=== PATIENT | male | born 1955 | race Caucasian/White ===

== ENCOUNTER 2017-09-23 21:13 | Inpatient (IN) | payer OTHER ==
[~2017-09-23] VITALS: Ht 180.3 cm; Wt 121.8 kg
--- NOTE | 2017-09-23 22:14 | ED SKIN/ALLERGY COMPLAINT ---
History of Present Illness General Chief Complaint: Abdominal Pain/Flank Pain Stated Complaint: SIB DR. GRAHAM FOR ABD PAIN Source: patient Exam Limitations: no limitations Vital Signs & Intake/Output Vital Signs & Intake/Output Vital Signs Date Time Temp Pulse Resp B/P B/P Pulse O2 O2 Flow FiO2 Mean Ox Delivery Rate 09/27 0627 98.0 57 20 138/78 93 CPAP 09/27 0537 55 94 09/27 0309 55 93 09/27 0040 55 92 09/27 0036 56 84 09/27 0000 CPAP 2.5L 09/26 2213 98.3 56 23 166/84 94 Room Air 09/26 2158 57 94 09/26 2057 57 152/70 09/26 1730 57 152/70 09/26 1400 97.5 57 20 152/70 92 Room Air 09/26 1359 52 158/66 09/26 1028 52 190/88 09/26 1028 190/88 ED Intake and Output 09/27 0000 09/26 1200 Intake Total 880 Output Total 1400 700 Balance -520 -700 Intake, Oral 880 Number 2 Bowel Movements Output, Urine 1400 700 Patient 320 lb Weight Allergies Coded Allergies: baclofen (LOSE EYESIGHT AND MOTOR SKILLS PER PT 09/23/17) ciprofloxacin (From CIPRO) (FEVER PT PT 09/23/17) lisinopril (COUGH PER PT 09/23/17) Reconcile Medications Acetaminophen (Tylenol Extra Strength) 500 MG TABLET 2 TAB PO Q6 BACK PAIN ( Reported) Amlodipine Besylate 10 MG TABLET 1 TAB PO DAILY HTN (Reported) Atorvastatin Calcium 40 MG TABLET 1 TAB PO DAILY CHOL (Reported) Bumetanide 2 MG TABLET 1 TAB PO BID water pill (Reported) Calcium Acetate 667 MG CAPSULE 1 CAP PO TID VITAMIN (Reported) Fenofibrate Nanocrystallized (Fenofibrate) 145 MG TABLET 1 TAB PO DAILY URINE (Reported) Hydralazine HCl 50 MG TABLET 0.5 TAB PO FOUR TIMES A DAY DIZZY (Reported) Metaxalone 800 MG TABLET 1 TAB PO TID PAIN (Reported) Metoprolol Tartrate 25 MG TABLET 3 TAB PO BID HTN (Reported) Patiromer Calcium Sorbitex (Veltassa) 16.8 GRAM POWD.PACK 1 PKG PO DAILY UNK (Reported) Sevelamer Carbonate (Renvela) 800 MG TABLET 2 TAB PO TID KIDNEY (Reported) Sodium Bicarbonate 650 MG TABLET 1 TAB PO BID SODIUM (Reported) Triage Note: PT FROM HOME C/O LEFT SIDE OF BODY SWELLING WELL ABD BLOATING AND TESTICLES SINCE SATURDAY. PT HAS SOB 89-91% O2 ON RA IN TRIAGE. PT STATES HE HAS HAD A FALL 3X WEEKS AGO. UNABLE TO AMBULATE INDEPDENTLY AT HOME, MAINLY WALKER/WHEELCHAIR BOUND. Triage Nurses Notes Reviewed? yes HPI: Patient presents for evaluation of a "hard abdomen" that began a few days ago. In addition he states that one half his body is "hard" (the left side) and one half his body is "soft" (the right side). (Cindy CASEY,Spencer Daniels) Past History Travel History Traveled to [place] past 21 day No Medical History Cardiovascular: hypertension, CABG Renal: KIDNEY DISEASE STAGE 4 Endocrine: diabetes Psychosocial History What is your primary language Nigerian Tobacco Use: Quit >30 days ago (Cindy CASEY,Spencer Daniels) Medical History Any Pertinent Medical History? see below for history Surgical History Surgical History: non-contributory Family History Hx Contributory? No (Patricia CASEY,Edwin Burgos) Review of Systems Review of Systems Constitutional: Reports: no symptoms. EENTM: Reports: no symptoms. Respiratory: Reports: no symptoms. Cardiovascular: Reports: no symptoms. GI: Reports: see HPI. Genitourinary: Reports: no symptoms. Musculoskeletal: Reports: no symptoms. Skin: Reports: no symptoms. Neurological/Psychological: Reports: no symptoms. Hematologic/Endocrine: Reports: no symptoms. Immunologic/Allergic: Reports: no symptoms. All Other Systems: Reviewed and Negative (Cindy CASEY,Spencer Daniels) Physical Exam Physical Exam General Appearance: see below Comments: Gen.: Well-nourished, well-developed, no acute respiratory distress. Head: Normocephalic, atraumatic. Eyes: Normal inspection bilaterally Ears: Normal inspection bilaterally Nose: Normal inspection Face: Nontender to percussion Throat/mouth : Moist mucosa , no pharyngeal erythema Neck: Supple, full range of motion, no goiter Heart: Regular rate and rhythm, no murmurs rubs or gallops Lungs: Clear to auscultation bilaterally with normal air entry Chest: Nontender Back: Normal range of motion Abdomen: Soft, nontender, nondistended, normal bowel sounds, no organosplenomegaly Extremities: Normal range of motion grossly, equal radial pulses, no cyanosis clubbing or edema Neurologic: Cranial nerves grossly intact, speech is clear Skin: warm and dry, edema (and induration) of the abdomen; edema of upper and lower extremities (without induration) Psychiatric: Calm, cooperative, no apparent delusions or hallucinations (Cindy CASEY,Spencer Daniels) Physical Exam Lymphatic: no anterior cervical ashlyn (Patricia CASEY,Edwin Burgos) Progress Differential Diagnosis: obstruction, pancreatitis, ascites, muscle spasm, spontaneous bacterial peritonitis Plan of Care: Orders Procedure Date/time Status MAGNESIUM 09/27 0600 Active BASIC ELECTROLYTES PLUS BUN&CR 09/27 0600 Active THERAPIST ORDERS 09/27 0538 Complete THERAPIST ORDERS 09/27 0040 Complete CONTIN. POSITIVE AIRWAY PRESS 09/27 0039 Complete Renal Dialysis Diet 09/26 L Active DC OXYGEN 09/26 2200 Complete CONTIN. POSITIVE AIRWAY PRESS 09/26 2200 Complete Aranda, Insertion/Removal/Asses 09/26 1440 Active URINE COLLECTION FROM OR 09/26 0910 Active TOTAL IRON BINDING CAPACITY 09/26 0607 Complete FERRITIN 09/26 0607 Complete SERUM IRON 09/26 0607 Complete Lab Add-on Test 09/26 UNK Active Nursing Misc 09/26 UNK Active OXYGEN 09/25 UNK Complete OXYGEN DAILY CHARGE 09/25 UNK Complete CONTIN. POS. AIRWAY PRESS. CHG 09/25 UNK Complete Current Medications Sig/Jose Angel Start time Last Medication Dose Stop Time Status Admin Metolazone 10 MG DAILY 09/27 0900 AC (Zaroxolyn) Sodium Bicarbonate 1,950 MG TID 09/26 1400 AC 09/26 (Sodium Bicarb 325MG 2055 Tab) Epoetin Chu 15,000 UNITS ONCE A WEEK 09/26 1045 AC 09/26 (Epogen (Order in 1214 Multipiles Of 1000U)) Bumetanide 3 MG BID 09/25 2100 AC 09/26 (Bumex) 2056 Sodium Hypochlorite 1 MEI BID 09/25 1100 AC 09/26 205 Sevelamer Carbonate 1,600 MG WM 09/24 1711 AC 09/26 (Renvela) 1730 Calcium Acetate 667 MG WM 09/24 1708 AC 09/26 (PhosLo) 173 Atorvastatin Calcium 40 MG 1700 09/24 1700 AC 09/26 (Lipitor) 173 Fenofibrate 145 MG DAILY 09/24 899 AC 09/26 (Tricor) 102 Metaxalone 800 MG TID 09/24 899 AC 09/26 (Skelaxin) 2057 Metoprolol Tartrate 75 MG BID 09/24 899 AC 09/26 (Lopressor) 2053 Heparin Sodium 5,000 UNIT Q8 09/24 599 AC 09/27 (Porcine) 0524 Amlodipine Besylate 10 MG DAILY 09/24 329 AC 09/26 (Norvasc) 1027 Hydralazine HCl 25 MG FOUR TIMES A DAY 09/24 329 AC 09/26 (Apresoline) 2056 Laboratory Tests 09/27/17 0606: Sodium Pending, Potassium Pending, Chloride Pending, Carbon Dioxide Pending, Anion Gap Pending, BUN Pending, Creatinine Pending, BUN/Creatinine Ratio Pending , Magnesium Pending Microbiology 09/26 854 URINE OR: Urine Culture - RECD Comments: Patient signed out to Dr. Gomez (Cindy CASEY,Spencer Daniels) Diagnostic Imaging: Viewed by Me: CT Scan. Discussed w/RAD: CT Scan. Radiology Impression: PATIENT: VIANEY ZAMORA PRESENT AGE: 61 PATIENT ACCOUNT NO: [id number] : 59 LOCATION: [facility] ORDERING PHYSICIAN: Spencer White MD SERVICE DATE: 09/23/17 EXAM TYPE : CAT - CT ABD & PELVIS W/O IV CONTRAS; CT CHEST WO IV CONTRAST EXAMINATION: CT CHEST, ABDOMEN AND PELVIS WITHOUT CONTRAST CLINICAL INFORMATION: Ascites, liver disease, hydronephrosis. Anasarca. History of bariatric surgery. Diffuse edema, hypoxia. Effusion. COMPARISON: No pertinent prior studies are available for comparison. TECHNIQUE: Multidetector volumetric imaging was performed from the thoracic inlet through the pubic symphysis following the uneventful administration of: Oral contrast: No Intravenous contrast: No Sagittal and coronal reformatted images were obtained on the technologist workstation. FINDINGS: CHEST: LUNG: There are calcified granulomata bilaterally. There is tubular and curvilinear consolidation in the lingula and left lower lobe with air bronchograms. MEDIASTINUM: There are calcified hilar and mediastinal lymph nodes consistent with prior granulomatous disease. The patient is status post median sternotomy. The main pulmonary artery is dilated, suggesting pulmonary arterial hypertension. Normal caliber thoracic aorta. Heart size upper limits of normal. There are coronary artery calcifications. PLEURA: Moderate bilateral pleural effusions, left greater than right. CHEST WALL/AXILLA: Bilateral gynecomastia. No axillary or internal mammary lymphadenopathy. ABDOMEN/PELVIS: Lack of intravenous contrast limits evaluation of the solid visceral organs including the liver, spleen, pancreas, and kidneys. LIVER, GALLBLADDER, AND BILIARY TREE: Noncontrast evaluation of the liver is grossly normal. No gross biliary ductal dilatation. Gallbladder is distended. There is ascites, limiting evaluation for pericholecystic fluid or gallbladder wall thickening. PANCREAS: Mild pancreatic atrophy. No pancreatic mass or peripancreatic inflammatory changes. SPLEEN: A few punctate granulomata are seen in the spleen. The spleen is not enlarged. ADRENAL GLANDS: No adrenal mass. KIDNEYS AND URETERS: Atrophic kidneys bilaterally. No hydronephrosis. GASTROINTESTINAL TRACT: There are postoperative changes of the stomach, question prior sleeve gastrectomy. Small bowel and colon are nondilated. There is severe sigmoid diverticulosis without evidence of diverticulitis. Although the appendix is not definitely seen, there are no right lower quadrant inflammatory changes to suggest acute appendicitis. ABDOMINAL WALL: There is diffuse anasarca. Fat-containing left inguinal hernia. LYMPHOVASCULAR STRUCTURES: Normal caliber abdominal aorta with moderate calcified atherosclerotic change. There is extensive mesenteric atherosclerotic vascular calcification. Prominent bilateral inguinal lymph nodes are seen. The largest is on the left and measures 2.8 x 2 cm, pathologically enlarged, nonspecific. BLADDER: The urinary bladder is mildly distended and circumferentially thick walled, which could be due to underdistention. There is gas nondependent lesion in the urinary bladder. PELVIC VISCERA: The prostate and seminal vesicles are normal. OSSEOUS STRUCTURES: Multilevel degenerative changes of the thoracolumbar spine are seen. There appears to be diffuse osseous sclerosis which can be seen in the setting of renal osteodystrophy. IMPRESSION: Bilateral pleural effusions, moderate volume of ascites, and anasarca suggesting volume overload. The kidneys are atrophic. There is left lower lobe consolidation with air bronchograms. This is at least in part compressive atelectasis from the left pleural effusion but superimposed aspiration or pneumonia are possible as well. There is inguinal lymphadenopathy, pathologically enlarged by short axis size criteria on the left. This is nonspecific, presumably reactive but metastatic lymphadenopathy could be considered if the patient has a known primary malignancy. Evidence of prior granulomatous disease. DICTATED BY: Antonino Del Castillo MD DATE/TIME DICTATED:09/23 HAND FLESHER:AMINATA DATE/TIME TRANSCRIBED:09/23/172327 CONFIDENTIAL, DO NOT COPY WITHOUT APPROPRIATE AUTHORIZATION. <Electronically signed in Other Vendor System> SIGNED BY: Antonino Del Castillo MD 09/23/17 8516 (Patricia CASEY,Edwin Burgos) Departure Departure Condition: Stable Referrals: Low CASEY,Clyde Gupta (PCP/Family) Departure Forms: Customer Survey General Discharge Information (Cindy CASEY,Spencer Daniels) Departure Disposition: STILL A PATIENT Clinical Impression Primary Impression: Anasarca Secondary Impressions: Bilateral pleural effusion Admission Note Spoke With: Barbie Conley MD Documentation of Exam: Documentation of any treatments & extenuating circumstances including Concerns Regarding Discharge (functional status, medication knowledge or non-compliance, living conditions, etc.) that warrant an admission rather than observation: [ Limits telemetry, renal consultation, pulse ox monitoring, most likely will need dialysis] (Patricia CASEY,Edwin Burgos)
[2017-09-23] MEDS ORDERED: VELTASSA16.8 GM PO (22:27)
[2017-09-23] MEDS ORDERED: METOPROLOL TART25 M1 PO (22:27)
[2017-09-23] MEDS ORDERED: HYDRALAZINE HCL50 M1 PO (22:28)
[2017-09-23] MEDS ORDERED: ATORVASTATIN CA40 M1 PO (22:28)
[2017-09-23] MEDS ORDERED: METAXALONE800 M1 PO (22:28)
[2017-09-23] MEDS ORDERED: AMLODIPINE BESY10 M1 PO (22:28)
[2017-09-23] MEDS ORDERED: RENVELA800 M1 PO (22:29)
[2017-09-23] MEDS ORDERED: SODIUM BICARBO650 M1 PO (22:30)
[2017-09-23] MEDS ORDERED: FENOFIBRATE145 M1 PO (22:30)
[2017-09-23] MEDS ORDERED: CALCIUM ACETAT667 M3 PO (22:30)
[2017-09-23 22:44] LABS: ABSOLUTE BASOPHIL COUNT 0 /CUMM (0.0-0.2); ABSOLUTE EOSINOPHIL COUNT 0.1 /CUMM (0.0-0.7); ABSOLUTE GRANULOCYTE CT 5.4 /CUMM (1.4-6.5); ABSOLUTE LYMPH COUNT 0.9 /CUMM (1.2-3.4); ABSOLUTE MONOCYTE COUNT 0.7 /CUMM (0.10-0.60); BASOPHIL % 0.4 % (0.0-2.0); EOSINOPHIL % 0.9 % (0-5); GRANULOCYTE % 75.9 % (42.2-75.2); HEMATOCRIT 34.6 % (42-52); MEAN CORPUSCULAR HGB 29.4 PG (27.0-31.0); MEAN CORPUSCULAR HGB CONC 31.8 G/DL (33.0-37.0); MEAN CORPUSCULAR VOLUME 92.2 FL (80.0-94.0); PLATELET COUNT 346 /CUMM (130-400); RBC DISTRIBUTION WIDTH 18.1 % (11.5-14.5); RED BLOOD CELL CT 3.75 /CUMM (4.70-6.10); WHITE BLOOD CELL COUNT 7.1 /CUMM (4.8-10.8)
[2017-09-23 22:50] LABS: PT 13.5 SEC (9.4-12.5)
--- NOTE | 2017-09-23 23:41 | CT SCAN REPORT ---
EXAMINATION: CT CHEST, ABDOMEN AND PELVIS WITHOUT CONTRAST CLINICAL INFORMATION: Ascites, liver disease, hydronephrosis. Anasarca. History of bariatric surgery. Diffuse edema, hypoxia. Effusion. COMPARISON: No pertinent prior studies are available for comparison. TECHNIQUE: Multidetector volumetric imaging was performed from the thoracic inlet through the pubic symphysis following the uneventful administration of: Oral contrast: No Intravenous contrast: No Sagittal and coronal reformatted images were obtained on the technologist workstation. FINDINGS: CHEST: LUNG: There are calcified granulomata bilaterally. There is tubular and curvilinear consolidation in the lingula and left lower lobe with air bronchograms. MEDIASTINUM: There are calcified hilar and mediastinal lymph nodes consistent with prior granulomatous disease. The patient is status post median sternotomy. The main pulmonary artery is dilated, suggesting pulmonary arterial hypertension. Normal caliber thoracic aorta. Heart size upper limits of normal. There are coronary artery calcifications. PLEURA: Moderate bilateral pleural effusions, left greater than right. CHEST WALL/AXILLA: Bilateral gynecomastia. No axillary or internal mammary lymphadenopathy. ABDOMEN/PELVIS: Lack of intravenous contrast limits evaluation of the solid visceral organs including the liver, spleen, pancreas, and kidneys. LIVER, GALLBLADDER, AND BILIARY TREE: Noncontrast evaluation of the liver is grossly normal. No gross biliary ductal dilatation. Gallbladder is distended. There is ascites, limiting evaluation for pericholecystic fluid or gallbladder wall thickening. PANCREAS: Mild pancreatic atrophy. No pancreatic mass or peripancreatic inflammatory changes. SPLEEN: A few punctate granulomata are seen in the spleen. The spleen is not enlarged. ADRENAL GLANDS: No adrenal mass. KIDNEYS AND URETERS: Atrophic kidneys bilaterally. No hydronephrosis. GASTROINTESTINAL TRACT: There are postoperative changes of the stomach, question prior sleeve gastrectomy. Small bowel and colon are nondilated. There is severe sigmoid diverticulosis without evidence of diverticulitis. Although the appendix is not definitely seen, there are no right lower quadrant inflammatory changes to suggest acute appendicitis. ABDOMINAL WALL: There is diffuse anasarca. Fat-containing left inguinal hernia. LYMPHOVASCULAR STRUCTURES: Normal caliber abdominal aorta with moderate calcified atherosclerotic change. There is extensive mesenteric atherosclerotic vascular calcification. Prominent bilateral inguinal lymph nodes are seen. The largest is on the left and measures 2.8 x 2 cm, pathologically enlarged, nonspecific. BLADDER: The urinary bladder is mildly distended and circumferentially thick walled, which could be due to underdistention. There is gas nondependent lesion in the urinary bladder. PELVIC VISCERA: The prostate and seminal vesicles are normal. OSSEOUS STRUCTURES: Multilevel degenerative changes of the thoracolumbar spine are seen. There appears to be diffuse osseous sclerosis which can be seen in the setting of renal osteodystrophy. IMPRESSION: Bilateral pleural effusions, moderate volume of ascites, and anasarca suggesting volume overload. The kidneys are atrophic. There is left lower lobe consolidation with air bronchograms. This is at least in part compressive atelectasis from the left pleural effusion but superimposed aspiration or pneumonia are possible as well. There is inguinal lymphadenopathy, pathologically enlarged by short axis size criteria on the left. This is nonspecific, presumably reactive but metastatic lymphadenopathy could be considered if the patient has a known primary malignancy. Evidence of prior granulomatous disease.
--- NOTE | 2017-09-24 00:58 | History & Physical ---
Dwaine Macedo MD,[facility] 09/24/17 0047: General Information and HPI MD Statement: I have seen and personally examined VIANEY ZAMORA and documented this H&P. The patient is a 61 year old M who presented with a patient stated chief complaint of [abd pain/flank pain]. Source of Information: patient Exam Limitations: no limitations History of Present Illness: Patient is 61-year-old male with PMH of CKD stage 4, HTN, CAD s/p CABG in 2006, DM (on insulin), BPH, LLE osteomyelitis presented to the ED for evaluation of increased body swelling. Patient reported he had increased swelling/distention of the abdomen for the last week. But for the last 2-3 days he started to have increased swelling of arms and scrotum. Patient noted that swelling is more severe in the left side, however he noted he generally lies on the left side. He also reported occasional fever to max of 102 during the last couple days. Patient had chronic shortness of breathing since February. Patient recently moved from [place] to [place] and this is the first time visit to . He had his care at [facility] till recently, his food service team member is Dr Pradhan and he visits her in monthly basis, his last creatinine was 6.2 and he was told he is a candidate for peritoneal dialysis. Patient lives alone, he was pretty independent till February last year that she had orthopedic procedure for his left lower extremity osteomyelitis (Escherichia coli. per patient) and recieved IV antibiotic for weeks, but after that he ambulates with walker. Patient takes up to 6 extra strength Tylenol daily for pain. He also does self- catheterization every 3-4 days and a still makes urine. Allergies/Medications Allergies: Coded Allergies: baclofen (LOSE EYESIGHT AND MOTOR SKILLS PER PT 09/23/17) ciprofloxacin (From CIPRO) (FEVER PT PT 09/23/17) lisinopril (COUGH PER PT 09/23/17) Home Med list Acetaminophen (Tylenol Extra Strength) 500 MG TABLET 2 TAB PO Q6 BACK PAIN ( Reported) Amlodipine Besylate 10 MG TABLET 1 TAB PO DAILY HTN (Reported) Atorvastatin Calcium 40 MG TABLET 1 TAB PO DAILY CHOL (Reported) Bumetanide 2 MG TABLET 1 TAB PO BID water pill (Reported) Calcium Acetate 667 MG CAPSULE 1 CAP PO TID VITAMIN (Reported) Fenofibrate Nanocrystallized (Fenofibrate) 145 MG TABLET 1 TAB PO DAILY URINE (Reported) Hydralazine HCl 50 MG TABLET 0.5 TAB PO FOUR TIMES A DAY DIZZY (Reported) Metaxalone 800 MG TABLET 1 TAB PO TID PAIN (Reported) Metoprolol Tartrate 25 MG TABLET 3 TAB PO BID HTN (Reported) Patiromer Calcium Sorbitex (Veltassa) 16.8 GRAM POWD.PACK 1 PKG PO DAILY UNK (Reported) Sevelamer Carbonate (Renvela) 800 MG TABLET 2 TAB PO TID KIDNEY (Reported) Sodium Bicarbonate 650 MG TABLET 1 TAB PO BID SODIUM (Reported) Past History Travel History Traveled to [place] past 21 day No Medical History Neurological: peripheral neuropathy Cardiovascular: hypertension, CABG Hepatic: NONE Renal: KIDNEY DISEASE STAGE 4 Musculoskeletal: osteoarthritis, leg injury r/t accident Psychiatric: substance abuse, (history 30+ years) Endocrine: diabetes Blood Disorders: DVT Surgical History Surgical History: non-contributory Review of Systems Review of Systems Constitutional: Reports: see HPI. Exam & Diagnostic Data Last 24 Hrs of Vital Signs/I&O Vital Signs Date Time Temp Pulse Resp B/P B/P Pulse O2 O2 Flow FiO2 Mean Ox Delivery Rate 09/24 0135 98.0 56 28 200/86 93 Nasal 2.0L Cannula 09/23 2317 98.0 53 20 183/84 93 Nasal 2.0L Cannula 09/23 2136 98.0 53 18 171/76 91 Room Air Intake & Output 09/24 0800 09/24 0000 09/23 1600 Intake Total Output Total Balance Patient 288 lb Weight Weight Reported by Patient Measurement Method Physical Exam General Appearance Alert, Oriented X3, Cooperative, No Acute Distress, obese, obese Skin 2inch X2 inch , 1 inch deep wound in bottom of left hill Skin Temp/Moisture Exam: Warm/Dry Sepsis Skin Exam (color): Normal for Ethnicity HEENT Atraumatic, EOMI Cardiovascular Regular Rate, Normal S1, Normal S2 Lungs decreased air entry in the right side Abdomen Soft, distanded, mild tenderness in the left side Neurological Normal Speech Extremities +3 bilateral LE edema Reproductive (MALE) swelling of scrotum Last 24 Hrs of Labs/[place]: Laboratory Tests 09/23/17 2225: Anion Gap 13, Estimated GFR 12 L, BUN/Creatinine Ratio 11.4, Glucose 112 H, Calcium 8.3 L, Total Bilirubin 0.6, AST 20, ALT 19 L, Alkaline Phosphatase 111 , Troponin I < 0.01, Svw-D-Okihbnuwchg Pept 74896 H, Total Protein 6.4, Albumin 2.9 L, Globulin 3.5, Albumin/Globulin Ratio 0.8 L, Lipase 66, PT 13.5 H, INR 1.24 H, D-Dimer High Sensitivty 806 H, CBC w Diff NO MAN DIFF REQ, RBC 3.75 L , MCV 92.2, MCH 29.4, MCHC 31.8 L, RDW 18.1 H, MPV 8.0, Gran % 75.9 H, Lymphocytes % 13.3 L, Monocytes % 9.5 H, Eosinophils % 0.9, Basophils % 0.4, Absolute Granulocytes 5.4, Absolute Lymphocytes 0.9 L, Absolute Monocytes 0.7 H, Absolute Eosinophils 0.1, Absolute Basophils 0 09/23/17 2223: Ban-K-Pokbahfubqg Pept Cancelled, D-Dimer High Sensitivty Cancelled Assessment/Plan Assessment: Patient is 61-year-old male presented with increased swelling of abdomen and bilateral LE PMH of CKD stage 4, HTN, CAD s/p CABG in 2006, DM (on insulin), BPH, LLE osteomyelitis VS, Ph Ex at admission: No fever, BP 171/76, DC 53 Labs at admission: Hgb 11, WBC 7.1, INR 1.2, Sodium 140 potassium normal, bicarbonate 14, creatinine 5, BUN 57, calcium 8.4, proBNP 27568, albumin 2.9 Imagings at admission: Chest abd CT: Bilateral pleural effusions, moderate volume of ascites, and anasarca suggesting volume overload. The kidneys are atrophic. There is left lower lobe consolidation with air bronchograms. This is at least in part compressive atelectasis from the left pleural effusion but superimposed aspiration or pneumonia are possible as well. There is inguinal lymphadenopathy, pathologically enlarged by short axis size criteria on the left. This is nonspecific, presumably reactive but metastatic lymphadenopathy could be considered if the patient has a known primary malignancy. Evidence of prior granulomatous disease. Patient was admitted to telemetry floor for management of following conditions: Volume overload CKD/ESRD Chronic wound of LLE Chronic medical conditions - admit to tele floor, to monitor for any potential electrolyte abnl - monitor BP,cardiac - PULS OX, O2 - continue home medication - hold metoprolol for bradicardia - IV bumethanide - EKG - Nephro consult FC DVT ppx: alps, pharmacological FC As Ranked By This Provider Problem List: 1. Anasarca Core Measures/Misc (12/30) Acute Coronary Syndrome ACS Diagnosis: No Congestive Heart Failure Congestive Heart Failure Diagnosis No Cerebrovascular Accident CVA/TIA Diagnosis: No VTE (View Protocol) VTE Risk Factors Age>40 No Mechanical VTE Prophylaxis d/t N/A MechProphylax Ordered No VTE Pharm Prophylaxis d/t NA PharmProphylax ordered Sepsis (View protocol) Sepsis Present: No If YES complete Sepsis Event Note If YES complete Sepsis Event Note Dariel Amado 09/24/17 0127: Core Measures/Misc (12/30) Sepsis (View protocol) If YES complete Sepsis Event Note If YES complete Sepsis Event Note Resident Review Statement Resident Statement: examined this patient, discussed with technology risk intern, agreed with technology risk intern Other Findings: Mr. Luong is a 61-year-old male with past medical history of chronic kidney disease (follows up with [facility] Liz[facility] at [facility]), hypertension, hyperlipidemia, coronary artery disease status post CABG in 2006, diabetes mellitus (previously on insulin, currently last HbA1c 6.3), BPH, previous left lower extremity osteomyelitis, now chronic ulcer on the foot status post graft came in with chief complaint of abdominal and flank discomfort for a few days prior to presentation. Apparently the patient has been feeling bloated for last 1 week, for last couple of days he noted increased swelling of his arms and scrotum, he noticed that the swelling was more severe on the left side, possibly because he lies on the left side, he continued to have worsening shortness of breath which has been there for the last 5-6 months. He felt bloated and extreme dental discomfort in 1 week prior to this present is very uncomfortable for last 3 days and therefore came into [place] [facility]. He has been seeing a food service team member for last 8 years, he follows up with Dr. Lizeth Pradhan and [employer] as her food service team member and follows up with her regularly, he sees the CIVILIAN TECHNICIAN at the food service team member almost every month. As per him his creatinine recently was 6.2 and prior to that was 5.8. He recently moved to [place], most of his doctors are at as he lived in [place] previously. There was a talk about possible peritoneal dialysis at some point, however he has not been dialyzed at any point until now. He does make some urine at baseline, however he self catheterizes himself as he has obstruction and his catheter gets blocked therefore he has to self catheterize himself. He has never had any peritoneal catheter. He follows up with his sales superintendent Dr. Chavez at [place]. He recently establish a new primary care at their due to his move and Dr. Kelsey is now his new PCP. He also noted to have mild fevers and chills at home for the last few days, maximum temperature that he measured was 102 at home. He had a possible osteomyelitis of the left foot, was debrided and according to him he was treated for osteomyelitis secondary to E. coli for 6 weeks however he does not remember what antibiotics. This is a first-time patient has presented [facility], most of his care has been and he will therefore we will need to obtain records from [facility] get more details on his medical history. Vitals on presentation a temperature of 98.0, pulse of 56, respiration of 20, blood pressure of 153/84, he was saturating 93% on 2 L of home oxygen. He does not use oxygen at home, however he was a previous heavy smoker. On physical exam, he was visibly short of breath, alert oriented 3, in mild distress due to anasarca, pupils equal and reactive to light, mild scleral icterus noted, CVS S1-S2 present, bilateral crackles present, RS : Air entry reduced on the left basal side, bilateral crackles. Per abdomen : distended, BS+, tenderness + in LLQ. extremities : Edema 2 to 3+ b/l Left foot : A deep ulcerating wound size approx 2cm, well healing, no overlying pus,pigmented but healing margins, pink granulomatous base, pulses palpable and grafted skin. Relevant labs : white count of 7.1, H/H of 11.0/34.6, platelets 346. Sodium of 142, potassium of 4.8, BUN/creatinine 57/5.0 (baseline 5.0), glucose of 112, calcium of 8.3, proBNP elevated at 31,300, albumin low at 2.9, d-dimer high-sensitivity at 806. CT abdomen and pelvis showed bilateral pleural effusion, moderate volume of ascites, anasarca suggesting volume overload, atrophic kidneys. Left lower lobe consolidation with air bronchograms were noted however that this could be compressive atelectasis from the left pleural effusion or possible superimposed aspiration or pneumonia. In absence of clinical signs of pneumonia, refill not treat for pneumonia for now. Also inguinal lymphadenopathy on the left was noted possibly reactive versus metastatic. We will admit the patient to cardiac telemetry floor for the treatment of following problems. Problem #1 anasarca secondary to fluid overload secondary to chronic kidney disease. Continue to monitor vitals, continue to monitor intake/output, will dose 2 mg of IV bumetanide starting now, continue home diuretics, nephrology consult for a.m. , possible peritoneal dialysis, continue to monitor electrolytes. Continue home medication of sodium bicarb 650 twice daily, sevelamer 1600 mg 3 times daily, calcium acetate 67 3 times daily. Problem #2 history of hypertension. She is on Lopressor 75 mg twice daily, we will hold the Lopressor for now and the patient's heart rate is on the lower side. Continue to monitor the heart rate and restart as needed. Continue amlodipine 10 mg daily, continue hydralazine. New to monitor blood pressure. Problem #3 history of hyperlipidemia/dyslipidemia. Continue fenofibrate 145 mg daily p.o. Continue statin starting in a.m. 4. Ulcer of the left lower foot. Continue dressings, wound care consult in a.m. with Dr. Young. FC Renal dialysis diet dvtpx heparin Barbie Conley 09/24/17 0440: Core Measures/Misc (12/30) Sepsis (View protocol) If YES complete Sepsis Event Note If YES complete Sepsis Event Note Attending MD Review Statement Attending Statement Attending MD Statement: examined this patient, discuss w/resident/PA/PIECE PRESSER, agreed w/resident/PA/PIECE PRESSER, reviewed EMR data (avail), reviewed images, amended to note Attending Assessment/Plan: CC: Bloating, body swelling PMH: CKD, HTN, DM, CAD S/P CA S/P CABG 2006, BPH, left foot ulcer followed by osteomyelitis S/P debridement now chronic ulcer, S/P gastric bypass, chronic low back pain Patient came to ER for feeling increasingly bloated, swollen since last 1 week. He states that his arms and legs are swelling more than usual since last 1 week and he noticed abdominal distention, scrotal swelling since last 2-3 days. He also states that he had fever of 102 on Saturday and Saturday on 2 different occasions associated with chills but denies any cough, expectoration, skin rashes or redness, urinary frequency, burning, irritation, worsening pain or drainage or redness of the foot wound, headache. He has worsening shortness of breath over last few days. Patient used to live in [place] before now moved to [place]. He follows up with food service team member and sales superintendent at [facility]. He follows up with food service team member and her PA every month her terminating. His creatinine is in the range of 5.8 to 6.2. He has been told that he may require dialysis and they have planned for peritoneotomy dialysis eventually but timeline was undecided. He had expected nephrology appointment today but could not go there because of worsening bloating and shortness of breath and stated he preferred to come to ER with his brother. He walks with a rolling walker. He is compliant and well-versed with all his medications currently on bumetanide along with amlodipine, hydralazine and metoprolol for blood pressure. He also receives erythropoietin shots for anemia and is on Veltassa, sodium bicarbonate and Ranvela. Vitals: Temperature 98.0, pulse 53, RR 18, blood pressure 171/76, saturating 91% on 2 L nasal cannula On exam: A O 3, cooperative, mild respiratory distress, neck supple, JVD could not be appreciated, no lymphadenopathy, mucosa dry, no focal neurological deficit, +2 lower extremity edema, generalized anasarca with distended abdomen, edema on arms, 3 cm deep ulcer on left foot on plantar aspect, does not appear infected but poor healing CVS: S1-S2, RRR. RS: Decreased air entry on left base. Abdomen: Soft, distended, mild tenderness on superficial aspect of left side of abdomen, bowel sounds present. CT abdomen and pelvis and chest without IV contrast: Bilateral pleural effusions, moderate volume of ascites, and anasarca suggesting volume overload. The kidneys are atrophic. There is left lower lobe consolidation with air bronchograms. This is at least in part compressive atelectasis from the left pleural effusion but superimposed aspiration or pneumonia are possible as well. There is inguinal lymphadenopathy, pathologically enlarged by short axis size criteria on the left. This is nonspecific, presumably reactive but metastatic lymphadenopathy could be considered if the patient has a known primary malignancy. Evidence of prior granulomatous disease. Assessment and plan 61-year-old male with extensive past medical history as mentioned above presented in ER for generalized swelling and bloating since last 1 week, progressively worsened over the weekend along with shortness of breath. On examination patient appears to be in generalized anasarca with pitting edema even on arms. This is confirmed with CT abdomen and pelvis and chest which shows moderate volume ascites, bilateral pleural effusion. His proBNP is elevated to 31,300. All of this is likely secondary to progression of CKD. According to patient his food service team member has not suggested any dialysis plan as of yet. They have discussed about peritoneal dialysis for future. Patient has metabolic acidosis, volume overload. We will try IV bumetanide, monitor him on telemetry floor for hypervolemia and any expected electrolyte abnormality secondary to see daily. We will Get nephrology involved. His blood pressure is accelerated as he has not taken any of his medications since afternoon, will continue all his medications. We'll obtain his previous records from nephrology and sales superintendent. Patient does not carry a diagnosis of congestive heart failure according to him. He also has chronic nonhealing noninfected hold on left foot, we will get wound care involved. + Hypervolemia with anasarca secondary to progression of see daily + Metabolic acidosis + Progression of CKD + Inguinal lymphadenopathy of unclear etiology + History of CKD, HTN, DM, CAD S/P CA S/P CABG 2006, BPH, left foot ulcer followed by osteomyelitis S/P debridement now chronic ulcer, S/P gastric bypass, chronic low back pain - Admit to telemetry - Continuous telemetry monitoring - Add magnesium and phosphorus to sample in lab - IV bumetanide 2 mg - Nephrology consult in a.m. - Continue all his home medications and sliding scale insulin - DVT prophylaxis - Wound care consult - Patient's brother is his healthcare proxy if required. Patient is full code
[2017-09-24] MEDS ORDERED: TYLENOL EXTRA500 M2 PO (01:56)
[2017-09-24] MEDS ORDERED: BUMETANIDE2 M1 PO (02:31)
[2017-09-24 03:09] VITALS: BP 164/80
--- NOTE | 2017-09-24 04:42 | Admission Certification ---
Admission Certification Certification Statement - As attending physician, I certify that at the time of - admission, based on clinical presentation, severity of - symptoms, need for further diagnostic testing and - therapeutic interventions, and risk of adverse outcomes - without in-hospital treatment, in my clinical assessment, - this patient requires an acute hospital stay for a minimum - of two nights or longer. I have also considered psychsocial - factors such as support system, advanced age, financial - issues, cognitive issues, and failed out-patient treatments, - past re-admission history, safety of patient, and lack of - compliance as applicable. Specific rationale supporting this admission is: Volume overload secondary to progression of CKD
[2017-09-24 07:14] VITALS: BP 164/68
[2017-09-24 07:44] LABS: ABSOLUTE BASOPHIL COUNT 0 /CUMM (0.0-0.2); ABSOLUTE EOSINOPHIL COUNT 0 /CUMM (0.0-0.7); ABSOLUTE GRANULOCYTE CT 4.7 /CUMM (1.4-6.5); ABSOLUTE LYMPH COUNT 1.1 /CUMM (1.2-3.4); ABSOLUTE MONOCYTE COUNT 0.8 /CUMM (0.10-0.60); BASOPHIL % 0.3 % (0.0-2.0); EOSINOPHIL % 0.6 % (0-5); GRANULOCYTE % 71.2 % (42.2-75.2); HEMATOCRIT 32.7 % (42-52); MEAN CORPUSCULAR HGB 29.9 PG (27.0-31.0); MEAN CORPUSCULAR HGB CONC 32.6 G/DL (33.0-37.0); MEAN CORPUSCULAR VOLUME 91.9 FL (80.0-94.0); PLATELET COUNT 317 /CUMM (130-400); RBC DISTRIBUTION WIDTH 17.6 % (11.5-14.5); RED BLOOD CELL CT 3.56 /CUMM (4.70-6.10); WHITE BLOOD CELL COUNT 6.6 /CUMM (4.8-10.8)
--- NOTE | 2017-09-24 10:41 | PN- Att Addend ---
Attending Addendum Attending Brief Note 61-year-old male with extensive past medical history presented in ER for generalized swelling and bloating since last 1 week, progressively worsened over the weekend along with shortness of breath. On examination patient appears to be in generalized anasarca. This is confirmed with CT abdomen and pelvis and chest which shows moderate volume ascites, bilateral pleural effusion. Rest of PE unremarkable. 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 They have discussed about peritoneal dialysis for future. Patient has metabolic acidosis, volume overload. No new complaints today. Vitals stable. Cr 5, Urine output+. Chest xray with plerual effusions 1 Hypervolemia with anasarca secondary to progression of CKD 2 B/l pleural effusion 3 Congestive heart failure 4 Inguinal lymphadenopathy of unclear etiology 5 History of CKD, HTN, DM, CAD S/P MD S/P CABG 2006, BPH, left foot ulcer followed by osteomyelitis S/P debridement now chronic ulcer, S/P gastric bypass, chronic low back pain 6. Urinary retention self catheterizes at home. - Continuous telemetry monitoring - bumetanide 2 mg bid - Nephrology consult awaited - Continue all his home medications and sliding scale insulin - Cardiology consult - DVT prophylaxis - Wound care consult - Patient's brother is his healthcare proxy if required. Patient is full code - Obtain previosu records. Admission Lab Results I reviewed the following labs: Laboratory Tests 09/24 09/24 1016 0647 Chemistry Sodium (137 - 145 mmol/L) 145 Potassium (3.5 - 5.1 mmol/L) 4.8 Chloride (98 - 107 mmol/L) 116 H Carbon Dioxide (22 - 30 mmol/L) 16 L Anion Gap (5 - 16) 13 BUN (9 - 20 mg/dL) 57 H Creatinine (0.7 - 1.2 mg/dL) 5.0 H Estimated GFR (>60 ml/min) 12 L BUN/Creatinine Ratio (7 - 25 %) 11.4 Phosphorus (2.5 - 4.5 mg/dL) 7.6 H Magnesium (1.6 - 2.3 mg/dL) 1.7 Troponin I (<0.11 ng/ml) < 0.01 Hematology CBC w Diff NO MAN DIFF REQ WBC (4.8 - 10.8 /CUMM) 6.6 RBC (4.70 - 6.10 /CUMM) 3.56 L Hgb (14.0 - 18.0 G/DL) 10.6 L Hct (42 - 52 %) 32.7 L MCV (80.0 - 94.0 FL) 91.9 MCH (27.0 - 31.0 PG) 29.9 MCHC (33.0 - 37.0 G/DL) 32.6 L RDW (11.5 - 14.5 %) 17.6 H Plt Count (130 - 400 /CUMM) 317 MPV (7.4 - 10.4 FL) 8.0 Gran % (42.2 - 75.2 %) 71.2 Lymphocytes % (20.5 - 51.1 %) 16.1 L Monocytes % (1.7 - 9.3 %) 11.8 H Eosinophils % (0 - 5 %) 0.6 Basophils % (0.0 - 2.0 %) 0.3 Absolute Granulocytes (1.4 - 6.5 /CUMM) 4.7 Absolute Lymphocytes (1.2 - 3.4 /CUMM) 1.1 L Absolute Monocytes (0.10 - 0.60 /CUMM) 0.8 H Absolute Eosinophils (0.0 - 0.7 /CUMM) 0 Absolute Basophils (0.0 - 0.2 /CUMM) 0 Urines Urine Color (YEL,AMB,STR) Pending Urine Clarity (CLEAR) Pending Urine pH (5.0 - 8.0) Pending Ur Specific [place] (1.001 - 1.035) Pending Urine Protein (NEG,<30 MG/DL) Pending Urine Ketones (NEG) Pending Urine Nitrite (NEG) Pending Urine Bilirubin (NEG) Pending Urine Urobilinogen (0.1 - 1.0 EU/dl) Pending Ur Leukocyte Esterase (NEG) Pending Ur Microscopic SEDIMENT EXAMINED Urine RBC (0 - 5 /HPF) Pending Urine Hemoglobin (NEG) Pending Urine Glucose (N MG/DL) Pending 09/23 09/23 2225 2223 Chemistry Sodium (137 - 145 mmol/L) 142 Potassium (3.5 - 5.1 mmol/L) 4.8 Chloride (98 - 107 mmol/L) 116 H Carbon Dioxide (22 - 30 mmol/L) 14 L Anion Gap (5 - 16) 13 BUN (9 - 20 mg/dL) 57 H Creatinine (0.7 - 1.2 mg/dL) 5.0 H Estimated GFR (>60 ml/min) 12 L BUN/Creatinine Ratio (7 - 25 %) 11.4 Glucose (65 - 99 mg/dL) 112 H Calcium (8.4 - 10.2 mg/dL) 8.3 L Phosphorus (2.5 - 4.5 mg/dL) 7.3 H Magnesium (1.6 - 2.3 mg/dL) 1.7 Total Bilirubin (0.2 - 1.3 mg/dL) 0.6 AST (17 - 59 U/L) 20 ALT (21 - 72 U/L) 19 L Alkaline Phosphatase (< 127 U/L) 111 Troponin I (<0.11 ng/ml) < 0.01 [id number] Pept (<125 pg/mL) 29307 H Cancelled Total Protein (6.3 - 8.2 g/dL) 6.4 Albumin (3.5 - 5.0 g/dL) 2.9 L Globulin (1.9 - 4.2 gm/dL) 3.5 Albumin/Globulin Ratio (1.1 - 2.2 %) 0.8 L Lipase (23 - 300 U/L) 66 Coagulation PT (9.4 - 12.5 SEC) 13.5 H INR (0.90 - 1.17) 1.24 H D-Dimer High Sensitivty (0 - 243 ng/ml) 806 H Cancelled Hematology CBC w Diff NO MAN DIFF REQ WBC (4.8 - 10.8 /CUMM) 7.1 RBC (4.70 - 6.10 /CUMM) 3.75 L Hgb (14.0 - 18.0 G/DL) 11.0 L Hct (42 - 52 %) 34.6 L MCV (80.0 - 94.0 FL) 92.2 MCH (27.0 - 31.0 PG) 29.4 MCHC (33.0 - 37.0 G/DL) 31.8 L RDW (11.5 - 14.5 %) 18.1 H Plt Count (130 - 400 /CUMM) 346 MPV (7.4 - 10.4 FL) 8.0 Gran % (42.2 - 75.2 %) 75.9 H Lymphocytes % (20.5 - 51.1 %) 13.3 L Monocytes % (1.7 - 9.3 %) 9.5 H Eosinophils % (0 - 5 %) 0.9 Basophils % (0.0 - 2.0 %) 0.4 Absolute Granulocytes (1.4 - 6.5 /CUMM) 5.4 Absolute Lymphocytes (1.2 - 3.4 /CUMM) 0.9 L Absolute Monocytes (0.10 - 0.60 /CUMM) 0.7 H Absolute Eosinophils (0.0 - 0.7 /CUMM) 0.1 Absolute Basophils (0.0 - 0.2 /CUMM) 0 Admission Meds I reviewed the following Meds: Current Medications Sig/Jose Angel Start time Last Medication Dose Stop Time Status Admin Amlodipine Besylate 10 MG DAILY 09/24 0330 AC 09/24 (Norvasc) 0844 Atorvastatin Calcium 40 MG 1700 09/24 1700 AC (Lipitor) Bumetanide 2 MG BID 09/24 0330 AC 09/24 (Bumex) 0848 Calcium Acetate 667 MG TID 09/24 09 AC 09/24 (PhosLo) 0844 Fenofibrate 145 MG DAILY 09/24 0900 AC 09/24 (Tricor) 0843 Heparin Sodium 5,000 UNIT Q8 09/24 06 AC 09/24 (Porcine) 0455 Hydralazine HCl 25 MG FOUR TIMES A DAY 09/24 0330 AC 09/24 (Apresoline) 0843 Metaxalone 800 MG TID 09/24 09 AC 09/24 (Skelaxin) 0842 Metoprolol Tartrate 75 MG BID 09/24 09 AC 09/24 (Lopressor) 1021 Sevelamer Carbonate 1,600 MG TID 09/24 09 AC 09/24 (Renvela) 0844 Sodium Bicarbonate 650 MG BID 09/24 0900 AC 09/24 (Sodium Bicarb 325MG 0843 Tab)
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
[2017-09-24 14:23] VITALS: BP 160/90
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
[2017-09-24 18:38] VITALS: BP 142/58
[2017-09-24 21:27] VITALS: BP 164/72
[2017-09-25 06:47] VITALS: BP 154/62
--- NOTE | 2017-09-25 08:03 | PN- Housestaff ---
CarlosavtarJorge Luis baker 09/25/17 0803: Subjective Follow-up For: Acute on chronic HFpEF History of coronary disease, status post bypass surgery Diabetes CKD Normocytic anemia Subjective: Seen and examined patient this morning. Offers no complaints. Feels the same as yesterday. Lesion over chest noted to be purulent. Review of Systems Constitutional: Denies: chills, diaphoresis, fever, malaise, weakness, unexplained weight loss. Objective Last 24 Hrs of Vital Signs/I&O Vital Signs Date Time Temp Pulse Resp B/P B/P Pulse O2 O2 Flow FiO2 Mean Ox Delivery Rate 09/25 0806 54 154/62 09/25 0805 54 154/62 09/25 0800 98 Nasal 2.5L Cannula 09/25 0647 97.9 51 20 154/62 95 Nasal Cannula 09/25 0034 51 92 09/24 2145 51 93 09/24 2127 97.9 55 20 164/72 95 Nasal Cannula 09/24 2102 162/72 09/24 2003 Nasal 2.5L Cannula 09/24 1838 56 142/58 09/24 1835 56 142/58 09/24 1656 Nasal 2.0L Cannula 09/24 1600 93 Nasal 2.5L Cannula 09/24 1423 98.2 52 20 160/90 93 Nasal Cannula 09/24 1346 160/90 Intake & Output 09/25 1600 09/25 0800 09/25 0000 Intake Total 50 308 Output Total 900 350 Balance -850 -42 Intake, IV 18 Intake, Oral 50 290 Number 0 Bowel Movements Output, Urine 900 350 Patient 327 lb Weight Weight Bed scale Measurement Method Physical Exam General Appearance: Alert, Oriented X3, Cooperative Cardiovascular: Normal S1, Normal S2 Lungs: Normal Air Movement Abdomen: Distended Extremities: +3 pedal edema, left plantar foot ulcer Current Medications: Current Medications Sig/Jose Angel Start time Last Medication Dose Route Stop Time Status Admin Amlodipine Besylate 10 MG DAILY 09/24 0330 AC 09/25 PO 0806 Atorvastatin Calcium 40 MG 1700 09/24 1700 AC 09/24 PO 1836 Bumetanide 2 MG BID 09/24 0330 AC 09/25 IV 0806 Calcium Acetate 667 MG WM 09/24 1708 AC 09/25 PO 0806 Calcium Acetate 667 MG TID 09/24 0900 DC 09/24 PO 1346 Fenofibrate 145 MG DAILY 09/24 0900 AC 09/25 PO 0805 Heparin Sodium 5,000 UNIT Q8 09/24 0600 AC 09/25 (Porcine) SC 0609 Hydralazine HCl 25 MG FOUR TIMES A DAY 09/24 0330 AC 09/25 PO 0805 Metaxalone 800 MG TID 09/24 0900 AC 09/25 PO 0806 Metolazone 5 MG BID 09/25 0900 AC PO Metolazone 5 MG DAILY 09/24 2200 DC 09/24 PO 2209 Metoprolol Tartrate 75 MG BID 09/24 0900 AC 09/25 PO 0806 Patient Medication 1 ED ONE ONE 09/24 1630 DC Teaching ED 09/24 1631 Sevelamer Carbonate 1,600 MG WM 09/24 1711 AC 09/25 PO 08 Sevelamer Carbonate 1,600 MG TID 09/24 0900 DC 09/24 PO 1345 Sodium Bicarbonate 650 MG BID 09/24 0900 AC 09/25 PO 08 Sodium Hypochlorite 1 MEI BID 09/25 1100 AC TOP Last 24 Hrs of Lab/[place] Results Last 24 Hrs of Labs/Mics: Laboratory Tests 09/25/17 0610: Anion Gap 12, Estimated GFR 12 L, BUN/Creatinine Ratio 11.8, Phosphorus 7.6 H, Magnesium 1.7 Microbiology 09/25 1056 TRUNK: Culture & Sensitivity - ORD 09/25 1056 TRUNK: Gram Stain - ORD 09/25 1003 URINE ROUT: Urine Culture - ORD Assessment/Plan Assessment: 80-year-old gentleman former past medical history significant for 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 monthly, hypertension, coronary artery disease status post CABG 2005, sleep apnea on nocturnal CPAP, nonhealing left heel ulcer history of osteomyelitis, obstructive uropathy secondary to be 2/2 urethral strictures requiring intermittent straight catheterization. Assessment and plan: Stage IV/V CKD Nephrotic syndrome secondary to secondary to chronic kidney disease, creatinine 5.1 today his baseline creatinine is around 4.35-5.49 next dose of Epogen on 09/28 , 300mcg as an outpatient Continue Phoslo currently on 2mg IV Bumex BID + 5mg PO metolazone per nephro will increase to 5mg Strict I/Os and daily weights NPO tonight per urology for ? march placement Metabolic acidosis On 1300mg sodium bicarb QID Acute on chronic HFpEF strict I/0s daily accurate weights Type 2 DM accuchecks continue ISS Left heel non-healing ulcer/chest furuncle wound consult Surgery consulted, recomending heat application, will continue to monitor DVT ppx sc heparin full code renal dialysis diet Problem List: 1. Bilateral pleural effusion 2. Anasarca 3. Diabetes Pain Ratin Pain Location: na Pain Goal: Pain 4 or less Pain Plan: current regimen Tomorrow's Labs & Rationales: licha Rebecca Geiger 09/25/17 1239: Attending MD Review Statement Attending Statement Attending MD Statement: examined this patient, discuss w/resident/PA/STILL WORKER HELPER, agreed w/resident/PA/STILL WORKER HELPER, discussed with family, reviewed EMR data (avail), discussed with nursing, discussed with case mgmt, reviewed images, amended to note Attending Assessment/Plan: History of CKD, HTN, DM, CAD S/P TN S/P CABG 2006, BPH, left foot ulcer followed by osteomyelitis S/P debridement now chronic ulcer, S/P gastric bypass, chronic low back pain 61-year-old male admitted here for fluid overlaod, b/l pleural effusion, anasarca in setting of chronc congestive heart failure and progressive worsening of kidney disease. No new complaints today. Vitals stable. Cr 5.1 , Urine output+. Chest furuncle noted with some purulent material. RUTH on CKD with fluid overlaod: bumetanide 2 mg iv bid, nephrology follwoing, monitor I/O strictly. Increase diuretics as per nephrology. Congestive heart failure diastolic , echo pending Cardiology consulted Left non healing ulcer present on admission - Wound care consulted, follow recommendations DVT prophylaxis Patient's brother is his healthcare proxy if required. Patient is full code Continuous telemetry monitoring, f/u previus records. Patient's brother is his healthcare proxy if required. Patient is full code Continuous telemetry monitoring, f/u previus records.
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
--- NOTE | 2017-09-25 11:30 | PN- Cardiology ---
Subjective Subjective: Clinically unchanged. Remains mildly dyspneic. No other specific complaints. Objective Vital Signs and I&Os Vital Signs Date Time Temp Pulse Resp B/P B/P Pulse O2 O2 Flow FiO2 Mean Ox Delivery Rate 09/25 0806 54 154/62 09/25 0805 54 154/62 09/25 0800 98 Nasal 2.5L Cannula 09/25 0647 97.9 51 20 154/62 95 Nasal Cannula 09/25 0034 51 92 09/24 2145 51 93 09/24 2127 97.9 55 20 164/72 95 Nasal Cannula 09/24 2102 162/72 09/24 2003 Nasal 2.5L Cannula 09/24 1838 56 142/58 09/24 1835 56 142/58 09/24 1656 Nasal 2.0L Cannula 09/24 1600 93 Nasal 2.5L Cannula 09/24 1423 98.2 52 20 160/90 93 Nasal Cannula 09/24 1346 160/90 Intake & Output 09/25 1600 09/25 0800 09/25 0000 09/24 1600 09/24 0800 09/24 0000 Intake Total 50 308 480 218 Output Total 900 350 Balance -850 -42 480 218 Intake, IV 18 18 Intake, Oral 50 290 480 200 Number 0 2 Bowel Movements Output, Urine 900 350 Patient 327 lb 288 lb 288 lb Weight Weight Bed scale Reported by Patient Reported by Patient Measurement Method Physical Exam: General Appearance: well developed/nourished, alert, awake, oriented Head: normal HEENT: Normal Neck: supple, JVP normal, carotid upstrokes normal bilaterally, no masses or thyromegaly Respiratory: chest non-tender, clear to auscultation and percussion bilaterally Cardiovascular: regular rate/rhythm, normal S1, S2, 1-2/6 systolic murmur Abdomen: normal bowel sounds, soft, non-tender Extremities: normal inspection, 2+ edema Vascular: Pulses are 2+ and equal bilaterally Neurologic: Grossly normal/nonfocal Current Medications: Current Medications Sig/Jose Angel Start time Last Medication Dose Route Stop Time Status Admin Amlodipine Besylate 10 MG DAILY 09/24 0330 AC 09/25 PO 08 Atorvastatin Calcium 40 MG 1700 09/24 1700 AC 09/24 PO 1836 Bumetanide 2 MG BID 09/24 0330 AC 09/25 IV 0806 Calcium Acetate 667 MG WM 09/24 170 AC 09/25 PO 0806 Calcium Acetate 667 MG TID 09/24 0900 DC 09/24 PO 1346 Fenofibrate 145 MG DAILY 09/24 0900 AC 09/25 PO 0805 Heparin Sodium 5,000 UNIT Q8 09/24 06 AC 09/25 (Porcine) SC 0609 Hydralazine HCl 25 MG FOUR TIMES A DAY 09/24 0330 AC 09/25 PO 0805 Metaxalone 800 MG TID 09/24 0900 AC 09/25 PO 0806 Metolazone 5 MG BID 09/25 0900 AC PO Metolazone 5 MG DAILY 09/24 2200 DC 09/24 PO 2209 Metoprolol Tartrate 75 MG BID 09/24 0900 AC 09/25 PO 0806 Patient Medication 1 ED ONE ONE 09/24 1630 DC Teaching ED 09/24 1631 Sevelamer Carbonate 1,600 MG WM 09/24 1711 AC 09/25 PO 0806 Sevelamer Carbonate 1,600 MG TID 09/24 0900 DC 09/24 PO 1345 Sodium Bicarbonate 650 MG BID 09/24 0900 AC 09/25 PO 0805 Sodium Hypochlorite 1 MEI BID 09/25 1100 AC TOP Results Last 48 Hrs of Labs/Mics: Laboratory Tests 09/25/17 0610: Anion Gap 12, Estimated GFR 12 L, BUN/Creatinine Ratio 11.8, Phosphorus 7.6 H, Magnesium 1.7 09/24/17 1105: Troponin I < 0.01 09/24/17 1016: Urine Color YEL, Urine Clarity CLDY H, Urine pH 6.0, Ur Specific [place] 1.025, Urine Protein 100 H, Urine Ketones NEG, Urine Nitrite NEG, Urine Bilirubin NEG, Urine Urobilinogen 0.2, Ur Leukocyte Esterase SMALL H, Ur Microscopic SEDIMENT EXAMINED, Urine RBC RARE, Urine WBC 5-10 H, Ur Epithelial Cells FEW, Urine Bacteria MANY H, Micro UA Comment B[place] YEAST H, Urine Hemoglobin TRACE- INTACT H, Urine Glucose NEG 09/24/17 0647: Anion Gap 13, Estimated GFR 12 L, BUN/Creatinine Ratio 11.4, Phosphorus 7.6 H, Magnesium 1.7, Troponin I < 0.01, Ntt-U-Osbizfdeeax Pept 80148 H, CBC w Diff NO MAN DIFF REQ, RBC 3.56 L, MCV 91.9, MCH 29.9, MCHC 32.6 L, RDW 17.6 H, MPV 8.0, Gran % 71.2, Lymphocytes % 16.1 L, Monocytes % 11.8 H, Eosinophils % 0.6, Basophils % 0.3, Absolute Granulocytes 4.7, Absolute Lymphocytes 1.1 L, Absolute Monocytes 0.8 H, Absolute Eosinophils 0, Absolute Basophils 0 09/23/17 2225: Anion Gap 13, Estimated GFR 12 L, BUN/Creatinine Ratio 11.4, Glucose 112 H, Calcium 8.3 L, Phosphorus 7.3 H, Magnesium 1.7, Total Bilirubin 0.6, AST 20, ALT 19 L, Alkaline Phosphatase 111, Troponin I < 0.01, [id number]-A-Tvimyyrzmxx Pept 69117 H, Total Protein 6.4, Albumin 2.9 L, Globulin 3.5, Albumin/Globulin Ratio 0.8 L, Lipase 66, PT 13.5 H, INR 1.24 H, D-Dimer High Sensitivty 806 H , CBC w Diff NO MAN DIFF REQ, RBC 3.75 L, MCV 92.2, MCH 29.4, MCHC 31.8 L, RDW 18.1 H, MPV 8.0, Gran % 75.9 H, Lymphocytes % 13.3 L, Monocytes % 9.5 H, Eosinophils % 0.9, Basophils % 0.4, Absolute Granulocytes 5.4, Absolute Lymphocytes 0.9 L, Absolute Monocytes 0.7 H, Absolute Eosinophils 0.1, Absolute Basophils 0 09/23/17 2223: Cts-H-Wmmptzeutrp Pept Cancelled, D-Dimer High Sensitivty Cancelled Assessment/Plan Assessment/Plan Assessment: 1. Acute on chronic HFpEF 2. History of coronary disease, status post bypass surgery 3. Diabetes 4. CKD 5. Normocytic anemia Recommendations: 1. Continue to follow nephrology recommendations 2. Bumex 2 milligrams IV b.i.d. 3. Metolazone 5 milligrams p.o. daily 4. Echocardiogram pending 5. Monitor input andoutput with daily weights 5. Check basic metabolic profile daily Continue telemetry? Yes
--- NOTE | 2017-09-25 12:19 | PN- Nephrology ---
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 No chronic uremic symptoms to warrant dialysis initiation. Has decided on PD as HD modality. Fluid overload - as evidenced by exam, imaging, and history. He confirmed to me today that he was taking the metolazone BIW. Hard to tell how much progress we' re making without accurate weights and/or UOP. I think we need standing weights only and a march catheter (pt unable to place on condom catheter). Anemia - Hg at goal. Almost due for his next dose of Epogen on 09/28 - had been getting 300mcg as an outpatient. Met acidosis - On 1300mg sodium bicarb QID which is a salt load but can help stabilize kidney function - I think it's reasonable to continue. Hyperphos - Needs low Phos diet - can be continued on his Phos binders. Suggestion: -Would increase to 3mg IV Bumex BID + 10mg PO metolazone 30min prior to dose -March catheter placement for accurate UOP -Standing weights only (discussed with RN) -Will plan to dose CAITLIN prior to discharge - would check ferritin, iron, and TIBC -OK to cont sodium bicarb 1950mg TID -Cont phos binders Please call [phone] with ?'s Subjective Subjective: SCr 5.1 Got 3 doses of 2mg IV bumex yesterday and 5mg PO metolazone - only 350cc UOP recorded Reportedly with failed march catheter placement and ?placement in OR tomorrow Weight 288lbs -> 327lbs Says breathing "about the same" Objective Vital Signs and I&Os Vital Signs Date Time Temp Pulse Resp B/P B/P Pulse O2 O2 Flow FiO2 Mean Ox Delivery Rate 09/25 0806 54 154/62 09/25 0805 54 154/62 09/25 0800 98 Nasal 2.5L Cannula 09/25 0647 97.9 51 20 154/62 95 Nasal Cannula 09/25 0034 51 92 09/24 2145 51 93 09/24 2126 97.9 55 20 164/72 95 Nasal Cannula 09/24 2102 162/72 09/24 2002 Nasal 2.5L Cannula 09/24 1838 56 142/58 09/24 1835 56 142/58 06/12 1656 Nasal 2.0L Cannula 09/24 1600 93 Nasal 2.5L Cannula 09/24 1423 98.2 52 20 160/90 93 Nasal Cannula 09/24 1346 160/90 Intake & Output 09/25 1600 09/25 0400 09/24 1600 09/24 0400 09/23 1600 09/23 0400 Intake Total 50 308 698 Output Total 900 350 Balance -850 -42 698 Intake, IV 18 18 Intake, Oral 50 290 680 Number 0 2 Bowel Movements Output, Urine 900 350 Patient 327 lb 288 lb Weight Weight Bed scale Reported by Patient Measurement Method Physical Exam: Gen - NAD HEENT - supple CV - RRR, no m/r/g Chest - clear anteriorly, no w/r/r Abd - soft, NTND Ext - ++edema Neuro - AOX3, grossly nonfocal Current Medications: Current Medications Sig/Jose Angel Start time Last Medication Dose Route Stop Time Status Admin Amlodipine Besylate 10 MG DAILY 09/24 0330 AC 09/25 PO 0806 Atorvastatin Calcium 40 MG 1700 09/24 1700 AC 09/24 PO 1836 Bumetanide 2 MG BID 09/24 0330 AC 09/25 IV 0806 Calcium Acetate 667 MG WM 09/24 1708 AC 09/25 PO 0806 Calcium Acetate 667 MG TID 09/24 0900 DC 09/24 PO 1346 Fenofibrate 145 MG DAILY 09/24 0900 AC 09/25 PO 0805 Heparin Sodium 5,000 UNIT Q8 09/24 06 09/25 (Porcine) SC 0609 Hydralazine HCl 25 MG FOUR TIMES A DAY 09/24 0330 AC 09/25 PO 0805 Metaxalone 800 MG TID 09/24 0900 AC 09/25 PO 0806 Metolazone 5 MG BID 09/25 0900 PO Metolazone 5 MG DAILY 09/24 2200 DC 09/24 PO 2209 Metoprolol Tartrate 75 MG BID 09/24 0900 AC 09/25 PO 0806 Patient Medication 1 ED ONE ONE 09/24 1630 DC Teaching ED 09/24 1631 Sevelamer Carbonate 1,600 MG WM 09/24 1711 AC 09/25 PO 0806 Sevelamer Carbonate 1,600 MG TID 09/24 0900 DC 09/24 PO 1345 Sodium Bicarbonate 650 MG BID 09/24 0900 AC 06/13 PO 0805 Sodium Hypochlorite 1 MEI BID 09/25 1100 AC TOP Results Pertinent Lab Results: Laboratory Tests 09/25 09/24 09/24 0610 1105 1016 Chemistry Sodium (137 - 145 mmol/L) 144 Potassium (3.5 - 5.1 mmol/L) 5.1 Chloride (98 - 107 mmol/L) 116 H Carbon Dioxide (22 - 30 mmol/L) 16 L Anion Gap (5 - 16) 12 BUN (9 - 20 mg/dL) 60 H Creatinine (0.7 - 1.2 mg/dL) 5.1 *H Estimated GFR (>60 ml/min) 12 L BUN/Creatinine Ratio (7 - 25 %) 11.8 Phosphorus (2.5 - 4.5 mg/dL) 7.6 H Magnesium (1.6 - 2.3 mg/dL) 1.7 Troponin I (<0.11 ng/ml) < 0.01 Urines Urine Color (YEL,AMB,STR) YEL Urine Clarity (CLEAR) CLDY H Urine pH (5.0 - 8.0) 6.0 Ur Specific [place] (1.001 - 1.035) 1.025 Urine Protein (NEG,<30 MG/DL) 100 H Urine Ketones (NEG) NEG Urine Nitrite (NEG) NEG Urine Bilirubin (NEG) NEG Urine Urobilinogen (0.1 - 1.0 EU/dl) 0.2 Ur Leukocyte Esterase (NEG) SMALL H Ur Microscopic SEDIMENT EXAMINED Urine RBC (0 - 5 /HPF) RARE Urine WBC (0 - 2 /HPF) 5-10 H Ur Epithelial Cells (NONE,FEW) FEW Urine Bacteria (NEG/NONE) MANY H Micro UA Comment BUDDING YEAST H Urine Hemoglobin (NEG) TRACE-INTACT H Urine Glucose (N MG/DL) NEG 09/24 09/23 0647 2225 Chemistry Sodium (137 - 145 mmol/L) 145 142 Potassium (3.5 - 5.1 mmol/L) 4.8 4.8 Chloride (98 - 107 mmol/L) 116 H 116 H Carbon Dioxide (22 - 30 mmol/L) 16 L 14 L Anion Gap (5 - 16) 13 13 BUN (9 - 20 mg/dL) 57 H 57 H Creatinine (0.7 - 1.2 mg/dL) 5.0 H 5.0 H Estimated GFR (>60 ml/min) 12 L 12 L BUN/Creatinine Ratio (7 - 25 %) 11.4 11.4 Glucose (65 - 99 mg/dL) 112 H Calcium (8.4 - 10.2 mg/dL) 8.3 L Phosphorus (2.5 - 4.5 mg/dL) 7.6 H 7.3 H Magnesium (1.6 - 2.3 mg/dL) 1.7 1.7 Total Bilirubin (0.2 - 1.3 mg/dL) 0.6 AST (17 - 59 U/L) 20 ALT (21 - 72 U/L) 19 L Alkaline Phosphatase (< 127 U/L) 111 Troponin I (<0.11 ng/ml) < 0.01 < 0.01 Otm-I-Gsaetibfrfz Pept (<125 pg/mL) 78896 H 98084 H Total Protein (6.3 - 8.2 g/dL) 6.4 Albumin (3.5 - 5.0 g/dL) 2.9 L Globulin (1.9 - 4.2 gm/dL) 3.5 Albumin/Globulin Ratio (1.1 - 2.2 %) 0.8 L Lipase (23 - 300 U/L) 66 Coagulation PT (9.4 - 12.5 SEC) 13.5 H INR (0.90 - 1.17) 1.24 H D-Dimer High Sensitivty (0 - 243 ng/ml) 806 H Hematology CBC w Diff NO MAN DIFF REQ NO MAN DIFF REQ WBC (4.8 - 10.8 /CUMM) 6.6 7.1 RBC (4.70 - 6.10 /CUMM) 3.56 L 3.75 L Hgb (14.0 - 18.0 G/DL) 10.6 L 11.0 L Hct (42 - 52 %) 32.7 L 34.6 L MCV (80.0 - 94.0 FL) 91.9 92.2 MCH (27.0 - 31.0 PG) 29.9 29.4 MCHC (33.0 - 37.0 G/DL) 32.6 L 31.8 L RDW (11.5 - 14.5 %) 17.6 H 18.1 H Plt Count (130 - 400 /CUMM) 317 346 MPV (7.4 - 10.4 FL) 8.0 8.0 Gran % (42.2 - 75.2 %) 71.2 75.9 H Lymphocytes % (20.5 - 51.1 %) 16.1 L 13.3 L Monocytes % (1.7 - 9.3 %) 11.8 H 9.5 H Eosinophils % (0 - 5 %) 0.6 0.9 Basophils % (0.0 - 2.0 %) 0.3 0.4 Absolute Granulocytes (1.4 - 6.5 /CUMM) 4.7 5.4 Absolute Lymphocytes (1.2 - 3.4 /CUMM) 1.1 L 0.9 L Absolute Monocytes (0.10 - 0.60 /CUMM) 0.8 H 0.7 H Absolute Eosinophils (0.0 - 0.7 /CUMM) 0 0.1 Absolute Basophils (0.0 - 0.2 /CUMM) 0 0 09/23 2223 Chemistry Nje-F-Cstningccau Pept Cancelled Coagulation D-Dimer High Sensitivty Cancelled Imaging/Other Studies: EXAM TYPE: CAT - CT ABD & PELVIS W/O IV CONTRAS; CT CHEST WO IV CONTRAST EXAMINATION: CT CHEST, ABDOMEN AND PELVIS WITHOUT CONTRAST CLINICAL INFORMATION: Ascites, liver disease, hydronephrosis. Anasarca. History of bariatric surgery. Diffuse edema, hypoxia. Effusion. COMPARISON: No pertinent prior studies are available for comparison. TECHNIQUE: Multidetector volumetric imaging was performed from the thoracic inlet through the pubic symphysis following the uneventful administration of: Oral contrast: No Intravenous contrast: No Sagittal and coronal reformatted images were obtained on the technologist workstation. FINDINGS: CHEST: LUNG: There are calcified granulomata bilaterally. There is tubular and curvilinear consolidation in the lingula and left lower lobe with air bronchograms. MEDIASTINUM: There are calcified hilar and mediastinal lymph nodes consistent with prior granulomatous disease. The patient is status post median sternotomy. The main pulmonary artery is dilated, suggesting pulmonary arterial hypertension. Normal caliber thoracic aorta. Heart size upper limits of normal. There are coronary artery calcifications. PLEURA: Moderate bilateral pleural effusions, left greater than right. CHEST WALL/AXILLA: Bilateral gynecomastia. No axillary or internal mammary lymphadenopathy. ABDOMEN/PELVIS: Lack of intravenous contrast limits evaluation of the solid visceral organs including the liver, spleen, pancreas, and kidneys. LIVER, GALLBLADDER, AND BILIARY TREE: Noncontrast evaluation of the liver is grossly normal. No gross biliary ductal dilatation. Gallbladder is distended. There is ascites, limiting evaluation for pericholecystic fluid or gallbladder wall thickening. PANCREAS: Mild pancreatic atrophy. No pancreatic mass or peripancreatic inflammatory changes. SPLEEN: A few punctate granulomata are seen in the spleen. The spleen is not enlarged. ADRENAL GLANDS: No adrenal mass. KIDNEYS AND URETERS: Atrophic kidneys bilaterally. No hydronephrosis. GASTROINTESTINAL TRACT: There are postoperative changes of the stomach, question prior sleeve gastrectomy. Small bowel and colon are nondilated. There is severe sigmoid diverticulosis without evidence of diverticulitis. Although the appendix is not definitely seen, there are no right lower quadrant inflammatory changes to suggest acute appendicitis. ABDOMINAL WALL: There is diffuse anasarca. Fat-containing left inguinal hernia. LYMPHOVASCULAR STRUCTURES: Normal caliber abdominal aorta with moderate calcified atherosclerotic change. There is extensive mesenteric atherosclerotic vascular calcification. Prominent bilateral inguinal lymph nodes are seen. The largest is on the left and measures 2.8 x 2 cm, pathologically enlarged, nonspecific. BLADDER: The urinary bladder is mildly distended and circumferentially thick walled, which could be due to underdistention. There is gas nondependent lesion in the urinary bladder. PELVIC VISCERA: The prostate and seminal vesicles are normal. OSSEOUS STRUCTURES: Multilevel degenerative changes of the thoracolumbar spine are seen. There appears to be diffuse osseous sclerosis which can be seen in the setting of renal osteodystrophy. IMPRESSION: Bilateral pleural effusions, moderate volume of ascites, and anasarca suggesting volume overload. The kidneys are atrophic. There is left lower lobe consolidation with air bronchograms. This is at least in part compressive atelectasis from the left pleural effusion but superimposed aspiration or pneumonia are possible as well. There is inguinal lymphadenopathy, pathologically enlarged by short axis size criteria on the left. This is nonspecific, presumably reactive but metastatic lymphadenopathy could be considered if the patient has a known primary malignancy. Evidence of prior granulomatous disease.
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
[2017-09-25 14:42] VITALS: BP 158/72
--- NOTE | 2017-09-25 17:03 | Cons- Urology ---
General Information and HPI Consulting Request Date of Consult: 09/25/17 Requested By: Fely CASEY,Rebecca Reason for Consult: urethral stricture: REQUIRES MCKEON INSERT FOR DIURESIS Source of Information: patient Exam Limitations: no limitations History of Present Illness: 61 YR OLD WITH MULTIPLE MED. HX INCLUDING SOB/WT GAIN/CHF?/ASCITES: AND URETHRAL STRICTURES DILATED BY YEARS AGO. PT SELF CATH WITH GUIDE WIRE Q 2-3 DAYS. CURRENTLY VOIDS BUT WITH LARGE RESIDUAL. I ATTEMPTED 12FR COUDE MCKEON THIS AM WITHOUT SUCCESS: PLAN IS CYSTO-MCKEON INSERT IN OR TOMORROW (PT JUST FINISHED BREAKFAST). Allergies/Medications Allergies: Coded Allergies: baclofen (LOSE EYESIGHT AND MOTOR SKILLS PER PT 09/23/17) ciprofloxacin (From CIPRO) (FEVER PT PT 09/23/17) lisinopril (COUGH PER PT 09/23/17) Home Med List: Acetaminophen (Tylenol Extra Strength) 500 MG TABLET 2 TAB PO Q6 BACK PAIN ( Reported) Amlodipine Besylate 10 MG TABLET 1 TAB PO DAILY HTN (Reported) Atorvastatin Calcium 40 MG TABLET 1 TAB PO DAILY CHOL (Reported) Bumetanide 2 MG TABLET 1 TAB PO BID water pill (Reported) Calcium Acetate 667 MG CAPSULE 1 CAP PO TID VITAMIN (Reported) Fenofibrate Nanocrystallized (Fenofibrate) 145 MG TABLET 1 TAB PO DAILY URINE (Reported) Hydralazine HCl 50 MG TABLET 0.5 TAB PO FOUR TIMES A DAY DIZZY (Reported) Metaxalone 800 MG TABLET 1 TAB PO TID PAIN (Reported) Metoprolol Tartrate 25 MG TABLET 3 TAB PO BID HTN (Reported) Patiromer Calcium Sorbitex (Veltassa) 16.8 GRAM POWD.PACK 1 PKG PO DAILY UNK (Reported) Sevelamer Carbonate (Renvela) 800 MG TABLET 2 TAB PO TID KIDNEY (Reported) Sodium Bicarbonate 650 MG TABLET 1 TAB PO BID SODIUM (Reported) Current Medications: Current Medications Sig/Jose Angel Start time Last Medication Dose Route Stop Time Status Admin Amlodipine Besylate 10 MG DAILY 09/24 0330 AC 09/25 PO 0806 Atorvastatin Calcium 40 MG 1700 09/24 1700 AC 09/24 PO 1836 Bumetanide 3 MG BID 09/25 2100 AC IV Bumetanide 2 MG BID 09/24 0330 DC 06/13 IV 0806 Calcium Acetate 667 MG WM 09/24 1708 AC 09/25 PO 1222 Calcium Acetate 667 MG TID 09/24 0900 DC 09/24 PO 1346 Fenofibrate 145 MG DAILY 09/24 0900 AC 09/25 PO 0805 Heparin Sodium 5,000 UNIT Q8 09/24 0600 AC 09/25 (Porcine) SC 1230 Hydralazine HCl 25 MG FOUR TIMES A DAY 09/24 0330 AC 09/25 PO 1229 Metaxalone 800 MG TID 09/24 0900 AC 09/25 PO 1230 Metolazone 10 MG BID 09/25 2100 AC PO Metolazone 5 MG BID 09/25 0900 DC 09/25 PO 1222 Metolazone 5 MG DAILY 09/24 2200 DC 09/24 PO 2209 Metoprolol Tartrate 75 MG BID 09/24 0900 AC 09/25 PO 0806 Sevelamer Carbonate 1,600 MG WM 09/24 1711 AC 09/25 PO 1222 Sevelamer Carbonate 1,600 MG TID 09/24 0900 DC 09/24 PO 1345 Sodium Bicarbonate 650 MG BID 09/24 0900 AC 09/25 PO 0805 Sodium Hypochlorite 1 MEI BID 09/25 1100 AC 09/25 TOP 1238 Past History Medical History Blood Transfusion Hx: Yes Neurological: peripheral neuropathy EENT: NONE Cardiovascular: hypertension, CABG Respiratory: NONE Gastrointestinal: GASTRIC BYPASS 2017 Hepatic: NONE Renal: KIDNEY DISEASE STAGE 4 Musculoskeletal: osteoarthritis, leg injury r/t accident Psychiatric: substance abuse, (history 30+ years) Endocrine: diabetes Blood Disorders: DVT Cancer(s): NONE Surgical History Pertinent Surgical History: non-contributory Family History Relations & Conditions If Any: FATHER Coronary artery disease Psychosocial History Where Do You Live? Home Smoking Status: Former Smoker Employment History Retired? unknown Review of Systems Review of Systems EENTM: Denies: no symptoms. Cardiovascular: Denies: no symptoms. Respiratory: Reports: short of breath. GI: Reports: abdominal pain, bloating. Genitourinary: Reports: see HPI. Neurological/Psychological: Denies: no symptoms. Exam & Diagnostic Data Vital Signs and I&O Vital Signs Date Time Temp Pulse Resp B/P B/P Pulse O2 O2 Flow FiO2 Mean Ox Delivery Rate 09/25 1442 98.0 52 20 158/72 92 Nasal 2.5L Cannula 09/25 1229 51 160/70 09/25 0806 54 154/62 09/25 0805 54 154/62 09/25 0800 98 Nasal 2.5L Cannula 09/25 0647 97.9 51 20 154/62 95 Nasal Cannula 09/25 0034 51 92 09/24 2145 51 93 09/24 2126 97.9 55 20 164/72 95 Nasal Cannula 09/24 2102 162/72 09/24 2002 Nasal 2.5L Cannula 09/24 1838 56 142/58 09/24 1835 56 142/58 Intake & Output 09/25 1600 09/25 0800 09/25 0000 09/24 1600 09/24 0800 09/24 0000 Intake Total 370 50 308 480 218 Output Total 900 350 Balance 370 -850 -42 480 218 Intake, IV 20 18 18 Intake, Oral 350 50 290 480 200 Number 1 0 2 Bowel Movements Output, Urine 900 350 Patient 327 lb 288 lb 288 lb Weight Weight Bed scale Reported by Patient Reported by Patient Measurement Method Physical Exam General Appearance: obese Head: atraumatic Eyes: Bilateral: normal appearance. Neck: normal inspection Respiratory: decreased breath sounds Cardiovascular: regular rate/rhythm, edema Gastrointestinal: distention Back: no vertebral tenderness Reproductive: PENILE SCROTAL EDEMA WITH HIDDEN PENIS Last 24 Hours of Labs: Laboratory Tests 09/25 0610 Chemistry Sodium (137 - 145 mmol/L) 144 Potassium (3.5 - 5.1 mmol/L) 5.1 Chloride (98 - 107 mmol/L) 116 H Carbon Dioxide (22 - 30 mmol/L) 16 L Anion Gap (5 - 16) 12 BUN (9 - 20 mg/dL) 60 H Creatinine (0.7 - 1.2 mg/dL) 5.1 *H Estimated GFR (>60 ml/min) 12 L BUN/Creatinine Ratio (7 - 25 %) 11.8 Phosphorus (2.5 - 4.5 mg/dL) 7.6 H Magnesium (1.6 - 2.3 mg/dL) 1.7 Imaging Results: PATIENT: VIANEY ZAMORA PRESENT AGE: 61 PATIENT ACCOUNT NO: [id number] : 59 LOCATION: [facility] ORDERING PHYSICIAN: Spencer White MD SERVICE DATE: 09/23/17 EXAM TYPE: CAT - CT ABD & PELVIS W/O IV CONTRAS; CT CHEST WO IV CONTRAST EXAMINATION: CT CHEST, ABDOMEN AND PELVIS WITHOUT CONTRAST CLINICAL INFORMATION: Ascites, liver disease, hydronephrosis. Anasarca. History of bariatric surgery. Diffuse edema, hypoxia. Effusion. COMPARISON: No pertinent prior studies are available for comparison. TECHNIQUE: Multidetector volumetric imaging was performed from the thoracic inlet through the pubic symphysis following the uneventful administration of: Oral contrast: No Intravenous contrast: No Sagittal and coronal reformatted images were obtained on the technologist workstation. FINDINGS: CHEST: LUNG: There are calcified granulomata bilaterally. There is tubular and curvilinear consolidation in the lingula and left lower lobe with air bronchograms. MEDIASTINUM: There are calcified hilar and mediastinal lymph nodes consistent with prior granulomatous disease. The patient is status post median sternotomy. The main pulmonary artery is dilated, suggesting pulmonary arterial hypertension. Normal caliber thoracic aorta. Heart size upper limits of normal. There are coronary artery calcifications. PLEURA: Moderate bilateral pleural effusions, left greater than right. CHEST WALL/AXILLA: Bilateral gynecomastia. No axillary or internal mammary lymphadenopathy. ABDOMEN/PELVIS: Lack of intravenous contrast limits evaluation of the solid visceral organs including the liver, spleen, pancreas, and kidneys. LIVER, GALLBLADDER, AND BILIARY TREE: Noncontrast evaluation of the liver is grossly normal. No gross biliary ductal dilatation. Gallbladder is distended. There is ascites, limiting evaluation for pericholecystic fluid or gallbladder wall thickening. PANCREAS: Mild pancreatic atrophy. No pancreatic mass or peripancreatic inflammatory changes. SPLEEN: A few punctate granulomata are seen in the spleen. The spleen is not enlarged. ADRENAL GLANDS: No adrenal mass. KIDNEYS AND URETERS: Atrophic kidneys bilaterally. No hydronephrosis. GASTROINTESTINAL TRACT: There are postoperative changes of the stomach, question prior sleeve gastrectomy. Small bowel and colon are nondilated. There is severe sigmoid diverticulosis without evidence of diverticulitis. Although the appendix is not definitely seen, there are no right lower quadrant inflammatory changes to suggest acute appendicitis. ABDOMINAL WALL: There is diffuse anasarca. Fat-containing left inguinal hernia. LYMPHOVASCULAR STRUCTURES: Normal caliber abdominal aorta with moderate calcified atherosclerotic change. There is extensive mesenteric atherosclerotic vascular calcification. Prominent bilateral inguinal lymph nodes are seen. The largest is on the left and measures 2.8 x 2 cm, pathologically enlarged, nonspecific. BLADDER: The urinary bladder is mildly distended and circumferentially thick walled, which could be due to underdistention. There is gas nondependent lesion in the urinary bladder. PELVIC VISCERA: The prostate and seminal vesicles are normal. OSSEOUS STRUCTURES: Multilevel degenerative changes of the thoracolumbar spine are seen. There appears to be diffuse osseous sclerosis which can be seen in the setting of renal osteodystrophy. IMPRESSION: Bilateral pleural effusions, moderate volume of ascites, and anasarca suggesting volume overload. The kidneys are atrophic. There is left lower lobe consolidation with air bronchograms. This is at least in part compressive atelectasis from the left pleural effusion but superimposed aspiration or pneumonia are possible as well. There is inguinal lymphadenopathy, pathologically enlarged by short axis size criteria on the left. This is nonspecific, presumably reactive but metastatic lymphadenopathy could be considered if the patient has a known primary malignancy. Evidence of prior granulomatous disease. DICTATED BY: Antonino Del Castillo MD DATE/TIME DICTATED:09/23/172327 HEAD USHER:AMINATA DATE/TIME TRANSCRIBED:09/23/172327 Assessment/Plan Assessment/Plan URETHTAL STRICTURES WITH FAILED MCKEON INSERTIONS: TO O.R. TOMORROW FOR CYSTO- MCKEON FOR USE WITH DIURESIS/i & o. Copies To: Toy Cancino MD Consult Acknowledgment - Thank you for your consult request. Attending MD Review Statement Attending Statement Attending MD Statement: examined this patient, discuss w/resident/PA/RECOVERY RN Attending Assessment/Plan: NEEDS CYSTO-MCKEON: MAKE NPO AFTER MIDNIGHT TONIGHT FOR OR IN AM.
[2017-09-25 21:46] VITALS: BP 148/70
[2017-09-26 06:31] VITALS: BP 132/64
--- NOTE | 2017-09-26 07:22 | PN- Housestaff ---
CarlosavtarJorge Luis baker 09/26/17 0722: Subjective Follow-up For: Acute on chronic HFpEF History of coronary disease, status post bypass surgery Diabetes CKD Normocytic anemia Subjective: Seen and examined patient. lying in bed. Offers no complaints this morning. no overnight events reported. Review of Systems Constitutional: Denies: see HPI. Objective Last 24 Hrs of Vital Signs/I&O Vital Signs Date Time Temp Pulse Resp B/P B/P Pulse O2 O2 Flow FiO2 Mean Ox Delivery Rate 09/26 0631 98.0 52 20 132/64 93 Nasal Cannula 09/26 0047 49 96 09/25 2146 98.2 56 20 148/70 92 Nasal Cannula 09/25 2125 54 92 09/25 2114 Nasal 2.5L Cannula 09/25 1803 57 158/72 09/25 1442 98.0 52 20 158/72 92 Nasal 2.5L Cannula 09/25 1229 51 160/70 Intake & Output 09/26 1600 09/26 0800 09/26 0000 Intake Total 72 Output Total 700 300 Balance -700 -228 Intake, IV 22 Intake, Oral 50 Number 1 Bowel Movements Output, Urine 700 300 Patient 326 lb Weight Weight Bed scale Measurement Method Physical Exam General Appearance: Alert, Oriented X3, Cooperative, No Acute Distress Cardiovascular: Regular Rate, Normal S1, Normal S2 Lungs: Normal Air Movement Abdomen: distended Extremities: +3 b/l edeman Current Medications: Current Medications Sig/Jose Angel Start time Last Medication Dose Route Stop Time Status Admin Amlodipine Besylate 10 MG DAILY 09/24 0330 AC 09/25 PO 0806 Atorvastatin Calcium 40 MG 1700 09/24 1700 AC 09/25 PO 1803 Bumetanide 3 MG BID 09/25 2099 AC 09/25 IV 204 Bumetanide 2 MG BID 09/24 0330 DC 09/25 IV 0806 Calcium Acetate 667 MG WM 09/24 1708 AC 09/25 PO 1803 Fenofibrate 145 MG DAILY 09/24 09 AC 09/25 PO 0805 Heparin Sodium 5,000 UNIT Q8 09/24 06 AC 09/26 (Porcine) SC 0518 Hydralazine HCl 25 MG FOUR TIMES A DAY 09/24 0330 AC 09/25 PO 204 Metaxalone 800 MG TID 09/24 09 AC 09/25 PO 204 Metolazone 10 MG BID 09/25 2100 AC 09/25 PO 195 Metolazone 5 MG BID 09/25 0900 DC 09/25 PO 1222 Metoprolol Tartrate 75 MG BID 09/24 0900 AC 09/25 PO 204 Sevelamer Carbonate 1,600 MG WM 09/24 1711 AC 09/25 PO 1803 Sodium Bicarbonate 650 MG BID 09/24 0900 AC 09/25 PO 2047 Sodium Hypochlorite 1 MEI BID 09/25 1100 AC 09/25 TOP 1238 Last 24 Hrs of Lab/[place] Results Last 24 Hrs of Labs/Mics: Laboratory Tests 09/26/17 0607: Anion Gap 12, Estimated GFR 11 L, BUN/Creatinine Ratio 11.3, Phosphorus 6.9 H, Magnesium 1.7 Microbiology 09/26 0855 URINE OR: Urine Culture - RECD 09/25 1847 URINE ROUT: Urine Culture - RECD 09/25 1056 TRUNK: Culture & Sensitivity - COLB 09/25 1056 TRUNK: Gram Stain - COLB Assessment/Plan Assessment: 80-year-old gentleman former past medical history significant for 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 monthly, hypertension, coronary artery disease status post CABG 2005, sleep apnea on nocturnal CPAP, nonhealing left heel ulcer history of osteomyelitis, obstructive uropathy secondary to be 2/2 urethral strictures requiring intermittent straight catheterization. Assessment and plan: Stage IV/V CKD Nephrotic syndrome secondary to secondary to chronic kidney disease, creatinine 5.1->5.3 today his baseline creatinine is around 4.35-5.49 next dose of Epogen on 09/28, on 300mcg as an outpatient Continue Phoslo currently on 3mg bumex and 10mg metolazone. Strict I/Os and daily weights, Will be going to OR for Cysto-march Metabolic acidosis On 1300mg sodium bicarb QID Acute on chronic HFpEF strict I/0s daily accurate weights continue metoprolol Type 2 DM accuchecks continue ISS Left heel non-healing ulcer/chest furuncle wound consult Surgery consulted, recomending heat application, will continue to monitor DVT ppx sc heparin full code renal dialysis diet Problem List: 1. Anasarca 2. Bilateral pleural effusion 3. Diabetes Pain Ratin Pain Location: na Pain Goal: Pain 4 or less Pain Plan: current plan Tomorrow's Labs & Rationales: bep/mg/evita Rebecca Geiger 09/26/17 1056: Attending MD Review Statement Attending Statement Attending MD Statement: examined this patient, discuss w/resident/PA/SPEEDER HAND, agreed w/resident/PA/SPEEDER HAND, discussed with family, reviewed EMR data (avail), discussed with nursing, discussed with case mgmt, reviewed images, amended to note Attending Assessment/Plan: History of CKD, HTN, DM, CAD S/P [place] S/P CABG 2006, BPH, left foot ulcer followed by osteomyelitis S/P debridement now chronic ulcer, S/P gastric bypass, chronic low back pain 61-year-old male admitted here for fluid overlaod, b/l pleural effusion, anasarca in setting of chronc congestive heart failure and progressive worsening of kidney disease. Noted mental health consultant inputs. For cystoscopy and march catheter today for urethral stricture. Vitals stable. Cr 5.3 , Urine output+. Oxygen supplementtion 2l nc. RUTH on CKD with fluid overlaod: Increased bumetanide 3 mg iv bid and on metazolone, nephrology follwoing, monitor I/O strictly. Congestive heart failure diastolic, Cardiology follwoing. cont current meds. Left non healing ulcer present on admission - Wound care consulted, follow recommendations Chest furunlce, appreciate surgery not amneable to drainage or I &D. Warm compresses. uretheral stricture urology follwoing. Plan for cysto-march. DVT prophylaxis Patient's brother is his healthcare proxy if required. Patient is full code Continuous telemetry monitoring.
--- NOTE | 2017-09-26 09:48 | ECHOCARDIOGRAM REPORT ---
VIANEY ZAMORA Age: 61 : 1955 Gender: M Exam Date: 09/25/2017 09:46 Exam Location: [place] Ht (in): 71 Wt (lb): 326 BSA: 2.79 BP: 154 / 62 Ordering Physician: Lisandro Goss MD Referring Physician: Lisandro Goss MD Technologist: Arian Villarreal [facility] Room Number: 172-1 Indications: HEART FAILURE Rhythm: Sinus Technical Quality: Technically difficult study FINDINGS Left Ventricle Mild left ventricular dilatation. Mild concentric left ventricular hypertrophy. Normal left ventricular ejection fraction visually estimated at >60 %. No obvious regional wall motion abnormalities. Right Ventricle Normal right ventricular size and function. Right Atrium Normal right atrial size. Left Atrium Mild left atrial dilatation. Mitral Valve Mitral valve thickened. Trace mitral regurgitation. Aortic Valve Diffuse thickening (sclerosis) of the aortic valve cusps without reduced excursion. No aortic stenosis. Trace aortic regurgitation. Tricuspid Valve Tricuspid valve not well visualized, grossly normal. Mild tricuspid regurgitation. Right ventricular systolic pressure estimated to be elevated at 52 mmHg. Pulmonic Valve Pulmonic valve not well visualized, grossly normal. Mild pulmonic regurgitation. Pericardium No pericardial effusion. Pleural effusion is noted. Great Vessels Normal size aortic root. CONCLUSIONS Mild left ventricular dilatation. Mild concentric left ventricular hypertrophy. Normal left ventricular ejection fraction visually estimated at >60 Mild left atrial dilatation. Trace mitral regurgitation. Trace aortic regurgitation. Mild tricuspid regurgitation. Mild pulmonic regurgitation. Right ventricular systolic pressure estimated to be elevated at 52 mmHg. Avery Barrientos M.D. (Electronically Signed) Final Date: 26 September 2017 09:47 MEASUREMENTS (Male / Female) Normal Values 2D ECHO LV Diastolic Diameter PLAX 6.1 cm 4.2 - 5.9 / 3.9 - 5.3 cm LV Systolic Diameter PLAX 3.9 cm 2.1 - 4.0 cm LV Fractional Shortening PLAX 36.1 % 25 - 46 % LV Ejection Fraction 2D Teich 64.7 % IVS Diastolic Thickness 1.2 cm LVPW Diastolic Thickness 1.2 cm LV Relative Wall Thickness 0.4 RV Internal Dim ED PLAX 5.0 cm 1.9 - 3.8 cm LVOT Diameter 2.4 cm Aortic Root Diameter 2.7 cm LA Systolic Diameter LX 4.8 cm 3.0 - 4.0 / 2.7 - 3.8 cm LA Volume 69.0 cm 18 - 58 / 22 - 52 cm Ascending Aorta Diameter 3.6 cm DOPPLER AV Peak Velocity 165.0 cm/s AV Peak Gradient 10.9 mmHg AV Mean Velocity 110.0 cm/s AV Mean Gradient 6.0 mmHg AV Velocity Time Integral 45.1 cm LVOT Peak Velocity 94.0 cm/s LVOT Peak Gradient 3.5 mmHg LVOT Mean Velocity 58.9 cm/s LVOT Mean Gradient 2.0 mmHg LVOT Velocity Time Integral 29.4 cm LVOT Stroke Volume 133.0 cm AV Area Cont Eq vti 2.9 cm AV Area Cont Eq pk 2.6 cm MV Peak Velocity 114.0 cm/s MV Peak Gradient 5.2 mmHg MV Mean Velocity 56.2 cm/s MV Mean Gradient 2.0 mmHg Mitral E Point Velocity 107.0 cm/s Mitral A Point Velocity 60.2 cm/s Mitral E to A Ratio 1.8 MV PHT Velocity 126.0 cm/s MV Deceleration [place] 512.0 cm/s MV Pressure Half Time 73.8 ms MV Area PHT 3.0 cm MV Deceleration Time 194.0 ms TR Peak Velocity 327.0 cm/s TR Peak Gradient 42.8 mmHg Right Atrial Pressure 10.0 mmHg Pulmonary Artery Systolic Pressu 52.8 mmHg Right Ventricular Systolic Press 52.8 mmHg PV Peak Velocity 132.0 cm/s PV Peak Gradient 7.0 mmHg PV Mean Velocity 85.5 cm/s PV Mean Gradient 3.0 mmHg PV Velocity Time Integral 41.7 cm LV E' Lateral Velocity 8.9 cm/s Mitral E to LV E' Lateral Ratio 12.1 LV E' Septal Velocity 4.4 cm/s Mitral E to LV E' Septal Ratio 24.4
--- NOTE | 2017-09-26 10:47 | PN- Nephrology ---
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 No chronic uremic symptoms to warrant dialysis initiation. Has decided on PD as HD modality. Follows with Dr. Pradhan. Fluid overload - Remains volume expanded. Diuretics have been increased. Now he has a march catheter so at least that will be an objective measurement. Given his size, I think we should plan on approx 3-4L of UOP per day - diuretics can be titrated to this. Anemia - Hg at goal. Almost due for his next dose of Darbepoetin on 09/28 - had been getting 300mcg as an outpatient - given that his Hg was 11.0 when he came in, I think that we can plan on Epogen 15,000U weekly and titrate as needed. Met acidosis - On 1300mg sodium bicarb QID which is a salt load but can help stabilize kidney function - I think it's reasonable to continue. Hyperphos - Needs low Phos diet - can be continued on his Phos binders. Phos is a bit better. Suggestion: -3mg IV lasix BID; would start off with just 1 dose of 10mg PO metolazone daily given 30min prior to bumex dose -Target 3-4L/day of UOP -Daily standing weights -Epogen 15,000U weekly (I wrote for this) - would check ferritin, iron, and TIBC -OK to cont sodium bicarb 1950mg TID -Cont phos binders Please call [phone] with ?'s Subjective Subjective: SCr 5.3 Got Bumex 2mg x3 and a total of 15mg PO metolazone yesterday 1200cc UOP March placed in OR this AM No SOB; still feels swollen Weight had been unchanged TTE yesterday with elevated R sided pressures but otherwise unremarkable Objective Vital Signs and I&Os Vital Signs Date Time Temp Pulse Resp B/P B/P Pulse O2 O2 Flow FiO2 Mean Ox Delivery Rate 09/26 1028 52 190/88 09/26 1028 190/88 09/26 0631 98.0 52 20 132/64 93 Nasal Cannula 09/26 0047 49 96 09/25 2145 98.2 56 20 148/70 92 Nasal Cannula 09/25 2125 54 92 09/25 2113 Nasal 2.5L Cannula 09/25 1803 57 158/72 09/25 1442 98.0 52 20 158/72 92 Nasal 2.5L Cannula 09/25 1229 51 160/70 Intake & Output 09/26 1600 09/26 0400 09/25 1600 09/25 0400 09/24 1600 09/24 0400 Intake Total 72 420 308 698 Output Total 700 300 900 350 Balance -700 -228 -480 -42 698 Intake, IV 22 20 18 18 Intake, Oral 50 400 290 680 Number 1 1 0 2 Bowel Movements Output, Urine 700 300 900 350 Patient 326 lb 327 lb 288 lb Weight Weight Bed scale Bed scale Reported by Patient Measurement Method Physical Exam: Gen - NAD HEENT - supple CV - RRR, no m/r/g Chest - clear anteriorly, no w/r/r Abd - soft, NTND, +pitting edema Ext - ++edema Neuro - AOX3, grossly nonfocal Current Medications: Current Medications Sig/Jose Angel Start time Last Medication Dose Route Stop Time Status Admin Amlodipine Besylate 10 MG DAILY 09/24 0330 AC 09/26 PO 1028 Atorvastatin Calcium 40 MG 1700 09/24 1700 AC 09/25 PO 1803 Bumetanide 3 MG BID 09/25 2100 AC 09/25 IV 2049 Bumetanide 2 MG BID 09/24 0330 DC 09/25 IV 0806 Calcium Acetate 667 MG WM 09/24 1708 AC 09/25 PO 1803 Fenofibrate 145 MG DAILY 09/24 0900 AC 09/26 PO 1027 Heparin Sodium 5,000 UNIT Q8 09/24 0600 AC 09/26 (Porcine) SC 0518 Hydralazine HCl 25 MG FOUR TIMES A DAY 09/24 0330 AC 09/26 PO 1028 Metaxalone 800 MG TID 09/24 0900 AC 09/26 PO 1027 Metolazone 10 MG BID 09/25 2100 AC 09/26 PO 1028 Metolazone 5 MG BID 09/25 0900 DC 09/25 PO 1222 Metoprolol Tartrate 75 MG BID 09/24 0900 AC 09/26 PO 1028 Sevelamer Carbonate 1,600 MG WM 09/24 1711 AC 09/25 PO 1803 Sodium Bicarbonate 650 MG BID 09/24 0900 AC 09/26 PO 1028 Sodium Hypochlorite 1 MEI BID 09/25 1100 AC 09/26 TOP 1034 Results Pertinent Lab Results: Laboratory Tests 09/26 09/25 09/24 0607 0610 1105 Chemistry Sodium (137 - 145 mmol/L) 145 144 Potassium (3.5 - 5.1 mmol/L) 4.9 5.1 Chloride (98 - 107 mmol/L) 116 H 116 H Carbon Dioxide (22 - 30 mmol/L) 17 L 16 L Anion Gap (5 - 16) 12 12 BUN (9 - 20 mg/dL) 60 H 60 H Creatinine (0.7 - 1.2 mg/dL) 5.3 *H 5.1 *H Estimated GFR (>60 ml/min) 11 L 12 L BUN/Creatinine Ratio (7 - 25 %) 11.3 11.8 Phosphorus (2.5 - 4.5 mg/dL) 6.9 H 7.6 H Magnesium (1.6 - 2.3 mg/dL) 1.7 1.7 Troponin I (<0.11 ng/ml) < 0.01 09/24 09/24 1016 0647 Chemistry Sodium (137 - 145 mmol/L) 145 Potassium (3.5 - 5.1 mmol/L) 4.8 Chloride (98 - 107 mmol/L) 116 H Carbon Dioxide (22 - 30 mmol/L) 16 L Anion Gap (5 - 16) 13 BUN (9 - 20 mg/dL) 57 H Creatinine (0.7 - 1.2 mg/dL) 5.0 H Estimated GFR (>60 ml/min) 12 L BUN/Creatinine Ratio (7 - 25 %) 11.4 Phosphorus (2.5 - 4.5 mg/dL) 7.6 H Magnesium (1.6 - 2.3 mg/dL) 1.7 Troponin I (<0.11 ng/ml) < 0.01 [id number] Pept (<125 pg/mL) 22553 H Hematology CBC w Diff NO MAN DIFF REQ WBC (4.8 - 10.8 /CUMM) 6.6 RBC (4.70 - 6.10 /CUMM) 3.56 L Hgb (14.0 - 18.0 G/DL) 10.6 L Hct (42 - 52 %) 32.7 L MCV (80.0 - 94.0 FL) 91.9 MCH (27.0 - 31.0 PG) 29.9 MCHC (33.0 - 37.0 G/DL) 32.6 L RDW (11.5 - 14.5 %) 17.6 H Plt Count (130 - 400 /CUMM) 317 MPV (7.4 - 10.4 FL) 8.0 Gran % (42.2 - 75.2 %) 71.2 Lymphocytes % (20.5 - 51.1 %) 16.1 L Monocytes % (1.7 - 9.3 %) 11.8 H Eosinophils % (0 - 5 %) 0.6 Basophils % (0.0 - 2.0 %) 0.3 Absolute Granulocytes (1.4 - 6.5 /CUMM) 4.7 Absolute Lymphocytes (1.2 - 3.4 /CUMM) 1.1 L Absolute Monocytes (0.10 - 0.60 /CUMM) 0.8 H Absolute Eosinophils (0.0 - 0.7 /CUMM) 0 Absolute Basophils (0.0 - 0.2 /CUMM) 0 Urines Urine Color (YEL,AMB,STR) YEL Urine Clarity (CLEAR) CLDY H Urine pH (5.0 - 8.0) 6.0 Ur Specific [place] (1.001 - 1.035) 1.025 Urine Protein (NEG,<30 MG/DL) 100 H Urine Ketones (NEG) NEG Urine Nitrite (NEG) NEG Urine Bilirubin (NEG) NEG Urine Urobilinogen (0.1 - 1.0 EU/dl) 0.2 Ur Leukocyte Esterase (NEG) SMALL H Ur Microscopic SEDIMENT EXAMINED Urine RBC (0 - 5 /HPF) RARE Urine WBC (0 - 2 /HPF) 5-10 H Ur Epithelial Cells (NONE,FEW) FEW Urine Bacteria (NEG/NONE) MANY H Micro UA Comment BUDDING YEAST H Urine Hemoglobin (NEG) TRACE-INTACT H Urine Glucose (N MG/DL) NEG 09/23 09/23 2225 2223 Chemistry Sodium (137 - 145 mmol/L) 142 Potassium (3.5 - 5.1 mmol/L) 4.8 Chloride (98 - 107 mmol/L) 116 H Carbon Dioxide (22 - 30 mmol/L) 14 L Anion Gap (5 - 16) 13 BUN (9 - 20 mg/dL) 57 H Creatinine (0.7 - 1.2 mg/dL) 5.0 H Estimated GFR (>60 ml/min) 12 L BUN/Creatinine Ratio (7 - 25 %) 11.4 Glucose (65 - 99 mg/dL) 112 H Calcium (8.4 - 10.2 mg/dL) 8.3 L Phosphorus (2.5 - 4.5 mg/dL) 7.3 H Magnesium (1.6 - 2.3 mg/dL) 1.7 Total Bilirubin (0.2 - 1.3 mg/dL) 0.6 AST (17 - 59 U/L) 20 ALT (21 - 72 U/L) 19 L Alkaline Phosphatase (< 127 U/L) 111 Troponin I (<0.11 ng/ml) < 0.01 [id number] Pept (<125 pg/mL) 26153 H Cancelled Total Protein (6.3 - 8.2 g/dL) 6.4 Albumin (3.5 - 5.0 g/dL) 2.9 L Globulin (1.9 - 4.2 gm/dL) 3.5 Albumin/Globulin Ratio (1.1 - 2.2 %) 0.8 L Lipase (23 - 300 U/L) 66 Coagulation PT (9.4 - 12.5 SEC) 13.5 H INR (0.90 - 1.17) 1.24 H D-Dimer High Sensitivty (0 - 243 ng/ml) 806 H Cancelled Hematology CBC w Diff NO MAN DIFF REQ WBC (4.8 - 10.8 /CUMM) 7.1 RBC (4.70 - 6.10 /CUMM) 3.75 L Hgb (14.0 - 18.0 G/DL) 11.0 L Hct (42 - 52 %) 34.6 L MCV (80.0 - 94.0 FL) 92.2 MCH (27.0 - 31.0 PG) 29.4 MCHC (33.0 - 37.0 G/DL) 31.8 L RDW (11.5 - 14.5 %) 18.1 H Plt Count (130 - 400 /CUMM) 346 MPV (7.4 - 10.4 FL) 8.0 Gran % (42.2 - 75.2 %) 75.9 H Lymphocytes % (20.5 - 51.1 %) 13.3 L Monocytes % (1.7 - 9.3 %) 9.5 H Eosinophils % (0 - 5 %) 0.9 Basophils % (0.0 - 2.0 %) 0.4 Absolute Granulocytes (1.4 - 6.5 /CUMM) 5.4 Absolute Lymphocytes (1.2 - 3.4 /CUMM) 0.9 L Absolute Monocytes (0.10 - 0.60 /CUMM) 0.7 H Absolute Eosinophils (0.0 - 0.7 /CUMM) 0.1 Absolute Basophils (0.0 - 0.2 /CUMM) 0 Imaging/Other Studies: TTE CONCLUSIONS Mild left ventricular dilatation. Mild concentric left ventricular hypertrophy. Normal left ventricular ejection fraction visually estimated at >60 Mild left atrial dilatation. Trace mitral regurgitation. Trace aortic regurgitation. Mild tricuspid regurgitation. Mild pulmonic regurgitation. Right ventricular systolic pressure estimated to be elevated at 52 mmHg.
[2017-09-26 14:00] VITALS: BP 152/70
--- NOTE | 2017-09-26 16:11 | PN- Cardiology ---
Subjective Subjective: Stable without change. Diuresing. Objective Vital Signs and I&Os Vital Signs Date Time Temp Pulse Resp B/P B/P Pulse O2 O2 Flow FiO2 Mean Ox Delivery Rate 09/26 1400 97.5 57 20 152/70 92 Room Air 09/26 1359 52 158/66 09/26 1028 52 190/88 09/26 1028 190/88 09/26 0631 98.0 52 20 132/64 93 Nasal Cannula 09/26 0047 49 96 09/25 2146 98.2 56 20 148/70 92 Nasal Cannula 09/25 2125 54 92 09/25 2114 Nasal 2.5L Cannula 09/25 1803 57 158/72 Intake & Output 09/26 1600 09/26 0800 09/26 0000 09/25 1600 09/25 0800 09/25 0000 Intake Total 480 72 370 50 308 Output Total 400 700 300 900 350 Balance 80 -700 -228 370 -850 -42 Intake, IV 22 20 18 Intake, Oral 480 50 350 50 290 Number 1 1 1 0 Bowel Movements Output, Urine 400 700 300 900 350 Patient 326 lb 327 lb Weight Weight Bed scale Bed scale Measurement Method Current Medications: Current Medications Sig/Jose Angel Start time Last Medication Dose Route Stop Time Status Admin Amlodipine Besylate 10 MG DAILY 09/24 0330 AC 09/26 PO 1028 Atorvastatin Calcium 40 MG 1700 09/24 1700 AC 09/25 PO 1803 Bumetanide 3 MG BID 09/25 2100 AC 09/26 IV 1101 Calcium Acetate 667 MG WM 09/24 1708 AC 09/26 PO 1208 Epoetin Chu 15,000 UNITS ONCE A WEEK 09/26 1045 AC 09/26 IA 1214 Fenofibrate 145 MG DAILY 09/24 0900 AC 09/26 PO 1027 Heparin Sodium 5,000 UNIT Q8 09/24 0600 AC 09/26 (Porcine) SC 1402 Hydralazine HCl 25 MG FOUR TIMES A DAY 09/24 0330 AC 09/26 PO 1359 Metaxalone 800 MG TID 09/24 0900 AC 09/26 PO 1400 Metolazone 10 MG DAILY 09/27 0900 AC PO Metolazone 10 MG BID 09/25 2100 DC 09/26 PO 1028 Metoprolol Tartrate 75 MG BID 09/24 0900 AC 09/26 PO 1028 Sevelamer Carbonate 1,600 MG WM 09/24 1711 AC 09/26 PO 1208 Sodium Bicarbonate 1,950 MG TID 09/26 1400 AC 09/26 PO 1359 Sodium Bicarbonate 650 MG BID 09/24 0900 DC 09/26 PO 1028 Sodium Hypochlorite 1 MEI BID 09/25 1100 AC 09/26 TOP 1034 Results Last 48 Hrs of Labs/Mics: Laboratory Tests 09/26/17 0607: Anion Gap 12, Estimated GFR 11 L, BUN/Creatinine Ratio 11.3, Phosphorus 6.9 H, Magnesium 1.7, Iron 63, TIBC 271, Ferritin 89.8 09/25/17 0610: Anion Gap 12, Estimated GFR 12 L, BUN/Creatinine Ratio 11.8, Phosphorus 7.6 H, Magnesium 1.7 Assessment/Plan Assessment/Plan Assessment: 1. Acute on chronic HFpEF 2. History of coronary disease, status post bypass surgery 3. Diabetes 4. CKD 5. Normocytic anemia Recommendations: Continue telemetry? Yes
[2017-09-26 22:13] VITALS: BP 166/84
[2017-09-27 06:27] VITALS: BP 138/78
--- NOTE | 2017-09-27 07:59 | PN- Housestaff ---
CarlosavtarJorge Luis baker 09/27/17 0759: Subjective Follow-up For: Acute on chronic HFpEF History of coronary disease, status post bypass surgery Diabetes CKD Normocytic anemia Tele-Events Since Last Visit: Normal sinus rhythm, heart rate 50s-60s Subjective: Seen and examined patient this morning. Not in distress states that he feels a little bit more improved today. March catheter in place. Review of Systems Constitutional: Denies: see HPI. Objective Last 24 Hrs of Vital Signs/I&O Vital Signs Date Time Temp Pulse Resp B/P B/P Pulse O2 O2 Flow FiO2 Mean Ox Delivery Rate 09/27 06 98.0 57 20 138/78 93 CPAP 09/27 0537 55 94 09/27 0309 55 93 09/27 0040 55 92 09/27 0036 56 84 09/27 0000 CPAP 2.5L 09/26 2213 98.3 56 23 166/84 94 Room Air 09/26 2158 57 94 09/26 2057 57 152/70 09/26 1730 57 152/70 09/26 1400 97.5 57 20 152/70 92 Room Air 09/26 1359 52 158/66 09/26 1028 52 190/88 09/26 1028 190/88 Intake & Output 09/27 1600 09/27 0800 09/27 0000 Intake Total 240 400 Output Total 1000 1000 Balance -760 -600 Intake, Oral 240 400 Number 1 Bowel Movements Output, Urine 1000 1000 Patient 320 lb Weight Physical Exam General Appearance: Alert, Oriented X3, Cooperative, No Acute Distress Cardiovascular: Regular Rate, Normal S1, Normal S2 Lungs: Clear to Auscultation, Normal Air Movement Abdomen: Soft, No Tenderness, distended, improved from yesterday Extremities: +3 b/l pedal edema Current Medications: Current Medications Sig/Jose Angel Start time Last Medication Dose Route Stop Time Status Admin Amlodipine Besylate 10 MG DAILY 09/24 0330 AC 09/26 PO 1028 Atorvastatin Calcium 40 MG 1700 09/24 1700 AC 09/26 PO 1731 Bumetanide 3 MG BID 09/25 2100 AC 09/26 IV 2057 Calcium Acetate 667 MG WM 09/24 1708 AC 09/27 PO 0747 Epoetin Chu 15,000 UNITS ONCE A WEEK 09/26 1045 AC 09/26 SC 1214 Fenofibrate 145 MG DAILY 09/24 0900 AC 09/26 PO 1027 Heparin Sodium 5,000 UNIT Q8 09/24 0600 AC 09/27 (Porcine) SC 0524 Hydralazine HCl 25 MG FOUR TIMES A DAY 09/24 0330 AC 09/26 PO 2056 Hydromorphone HCl 2 MG .STK-MED ONE 09/26 0939 DC IM 09/26 0940 Hydromorphone HCl 2 MG .STK-MED ONE 09/26 0921 DC IM 09/26 0922 Magnesium Oxide 400 MG BID 09/27 0900 AC PO Metaxalone 800 MG TID 09/24 0900 AC 09/26 PO 2057 Metolazone 10 MG DAILY 09/27 0900 AC 09/27 PO 07 Metolazone 10 MG BID 09/25 2100 DC 09/26 PO 102 Metoprolol Tartrate 75 MG BID 09/24 09 AC 09/26 PO 2053 Patient Medication 1 ED ONE ONE 09/26 1645 DC Teaching ED 09/26 1646 Sevelamer Carbonate 1,600 MG WM 09/24 1711 AC 09/27 PO 0747 Sodium Bicarbonate 1,950 MG TID 09/26 1400 AC 09/26 PO 2054 Sodium Bicarbonate 650 MG BID 09/24 0900 DC 09/26 PO 102 Sodium Hypochlorite 1 MEI BID 09/25 1100 AC 09/26 TOP 2058 Trazodone HCl 100 MG QPM 09/27 2100 AC PO Last 24 Hrs of Lab/[place] Results Last 24 Hrs of Labs/Mics: Laboratory Tests 09/27/17 0606: Anion Gap 12, Estimated GFR 11 L, BUN/Creatinine Ratio 10.9, Magnesium 1.7 Microbiology 09/26 0855 URINE OR: Urine Culture - RECD Assessment/Plan Assessment: 80-year-old gentleman former past medical history significant for 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 monthly, hypertension, coronary artery disease status post CABG 2005, sleep apnea on nocturnal CPAP, nonhealing left heel ulcer history of osteomyelitis, obstructive uropathy secondary to be 2/2 urethral strictures requiring intermittent straight catheterization. Assessment and plan: Stage IV/V CKD creatinine 5.1->5.3-->5.5 today his baseline creatinine is around 4.35-5.49 next dose of Epogen on 6/16, on 300mcg as an outpatient Epogen 15,000U weekly (I wrote for this) -Start ferrlecit 125mg IV every other day x8 doses Continue Phoslo currently on 3mg bumex and 10mg metolazone. Will increase methadone to 10 mg twice daily today with the goal to diurese him with target 3-4 L uop daily. per nephro Strict I/Os and daily weights, March placed 09/26/[address] Cancino Metabolic acidosis On 1300mg sodium bicarb QID Acute on chronic HFpEF strict I/0s daily accurate weights continue metoprolol Type 2 DM accuchecks continue ISS Left heel non-healing ulcer/chest furuncle wound consult Surgery consulted, recomending heat application, will continue to monitor DVT ppx sc heparin full code renal dialysis diet Problem List: 1. Anasarca 2. Diabetes Pain Ratin Pain Location: na Pain Goal: Pain 4 or less Pain Plan: current regimen Tomorrow's Labs & Rationales: bep/mag/Rebecca Faye 09/27/17 1159: Attending MD Review Statement Attending Statement Attending MD Statement: examined this patient, discuss w/resident/PA/CORPORATE DEVELOPMENT INTERN, agreed w/resident/PA/CORPORATE DEVELOPMENT INTERN, discussed with family, reviewed EMR data (avail), discussed with nursing, discussed with case mgmt, reviewed images, amended to note Attending Assessment/Plan: Patient seen/examined bedside. S/P cystoscopy and march catheter for urethral stricture. Vitals stable. Cr 5.5 , Urine output+. Oxygen supplementtion 2l nc. Trial to wean off oxygen but desaturates. progressive worsening of CKD with fluid overlaod: Continue bumetanide 3 mg iv bid and on metazolone, nephrology follwoing, monitor I/O strictly. Congestive heart failure diastolic, Cardiology follwoing. cont current meds. Left non healing ulcer present on admission - Wound care consulted, follow recommendations Chest furunlce, appreciate surgery not amneable to drainage or I &D. Warm compresses. uretheral stricture urology follwoing. s/p cysto-march. DVT prophylaxis Patient's brother is his healthcare proxy if required. Patient is full code Discharge planning will be to resume patient care to his collar setter overlock at [place] for peritoneal diallysis in near future. He has been taking peritoneal dialysis lessons as outpatient. If we can titrate his diuretics and convert to PO and then can anticipate discharge over weekend.
[2017-09-27] MEDS ORDERED: TRAZODONE HCL100 M1 PO (08:25)
--- NOTE | 2017-09-27 13:10 | PN- Cardiology ---
Subjective Subjective: No major change in cardiac status. The patient denies any active cardiac symptoms at the moment. Objective Vital Signs and I&Os Vital Signs Date Time Temp Pulse Resp B/P B/P Pulse O2 O2 Flow FiO2 Mean Ox Delivery Rate 09/27 0910 138/78 09/27 0909 57 138/78 09/27 0800 96 Nasal 2.0L Cannula 09/27 0627 98.0 57 20 138/78 93 CPAP 09/27 0537 55 94 09/27 0309 55 93 09/27 0040 55 92 09/27 0036 56 84 09/27 0000 CPAP 2.5L 09/26 2213 98.3 56 23 166/84 94 Room Air 09/26 2158 57 94 09/26 2057 57 152/70 09/26 1730 57 152/70 09/26 1400 97.5 57 20 152/70 92 Room Air 09/26 1359 52 158/66 Intake & Output 09/27 1600 09/27 0800 09/27 0000 09/26 1600 09/26 0800 09/26 0000 Intake Total 240 400 480 72 Output Total 1000 1000 400 700 300 Balance -760 -600 80 -700 -228 Intake, IV 22 Intake, Oral 240 400 480 50 Number 1 1 1 Bowel Movements Output, Urine 1000 1000 400 700 300 Patient 320 lb 326 lb Weight Weight Bed scale Measurement Method Physical Exam: General Appearance: well developed/nourished, alert, awake, oriented Head: normal HEENT: Normal Neck: supple, JVP normal, carotid upstrokes normal bilaterally, no masses or thyromegaly Respiratory: chest non-tender, clear to auscultation and percussion bilaterally Cardiovascular: regular rate/rhythm, normal S1, S2, 1-2/6 systolic murmur Abdomen: normal bowel sounds, soft, non-tender Extremities: normal inspection, 2+ edema Vascular: Pulses are 2+ and equal bilaterally Neurologic: Grossly normal/nonfocal Current Medications: Current Medications Sig/Jose Angel Start time Last Medication Dose Route Stop Time Status Admin Amlodipine Besylate 10 MG DAILY 09/24 0330 AC 09/27 PO 0909 Atorvastatin Calcium 40 MG 1700 09/24 1700 AC 09/26 PO 1731 Bumetanide 3 MG BID 09/25 2100 AC 09/27 IV 0910 Calcium Acetate 667 MG WM 09/24 1708 AC 09/27 PO 1209 Epoetin Chu 15,000 UNITS ONCE A WEEK 09/26 1045 AC 09/26 RI 1214 Fenofibrate 145 MG DAILY 09/24 0900 AC 09/27 PO 0910 Heparin Sodium 5,000 UNIT Q8 09/24 0600 AC 09/27 (Porcine) SC 0524 Hydralazine HCl 25 MG FOUR TIMES A DAY 09/24 0330 AC 09/27 PO 0910 Magnesium Oxide 400 MG BID 09/27 0900 AC 09/27 PO 0910 Metaxalone 800 MG TID 09/24 0900 AC 09/27 PO 0909 Metolazone 10 MG BID 09/27 2100 UNVr PO Metolazone 10 MG DAILY 09/27 0900 DC 09/27 PO 0747 Metoprolol Tartrate 75 MG BID 09/24 0900 AC 09/27 PO 0909 Patient Medication 1 ED ONE ONE 09/26 1645 DC Teaching ED 09/26 1646 Sevelamer Carbonate 1,600 MG WM 09/24 1711 AC 09/27 PO 1209 Sodium Bicarbonate 1,950 MG TID 09/26 1400 AC 09/27 PO 0909 Sodium Hypochlorite 1 MEI BID 09/25 1100 AC 09/27 TOP 0916 Trazodone HCl 100 MG QPM 09/27 2100 AC PO Results Last 48 Hrs of Labs/Mics: Laboratory Tests 09/27/17 0606: Anion Gap 12, Estimated GFR 11 L, BUN/Creatinine Ratio 10.9, Magnesium 1.7 09/26/17 0607: Anion Gap 12, Estimated GFR 11 L, BUN/Creatinine Ratio 11.3, Phosphorus 6.9 H, Magnesium 1.7, Iron 63, TIBC 271, Ferritin 89.8 Microbiology 09/25 1847 URINE ROUT: Urine Culture - COMP KLEBSIELLA PNEUMONIAE Assessment/Plan Assessment/Plan Assessment: 1. Acute on chronic HFpEF 2. History of coronary disease, status post bypass surgery 3. Diabetes 4. CKD 5. Normocytic anemia Recommendations: 1. Continue to follow nephrology recommendations 2. Bumex 2 milligrams IV b.i.d. 3. Metolazone 5 milligrams p.o. daily 4. Echocardiogram pending 5. Monitor input andoutput with daily weights 6. Check basic metabolic profile daily 7. Awaiting outpatient follow-up with [place] [facility] for peritoneal dialysis plans. Continue telemetry? Yes
--- NOTE | 2017-09-27 13:33 | PN- Nephrology ---
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 No chronic uremic symptoms to warrant dialysis initiation. Has decided on PD as HD modality. Follows with Dr. Pradhan. Fluid overload - Remains volume expanded. Diuretics have been increased and his UOP has picked up as well. That being said, he still has a ways to go and I think we should plan on approx 3-4L of UOP per day as hemodynamics and his renal function tolerate (should not that I would anticipate some rise in his SCr with diuresis as his previous baseline had been over 6) - diuretics can be titrated to this. Anemia - Hg at goal. Almost due for his next dose of Darbepoetin on 09/28 - had been getting 300mcg as an outpatient - given that his Hg was 11.0 when he came in, I think that we can plan on Epogen 15,000U weekly and titrate as needed. Iron stores are low - can give IV iron. Met acidosis - On 1300mg sodium bicarb QID which is a salt load but can help stabilize kidney function - I think it's reasonable to continue. Hyperphos - Needs low Phos diet - can be continued on his Phos binders. Phos is a bit better. Suggestion: -Cont 3mg IV lasix BID but would increase metolazone to 10mg PO BID given just prior to metolazone doses -Target 3-4L/day of UOP -Daily standing weights -Epogen 15,000U weekly (I wrote for this) -Start ferrlecit 125mg IV every other day x8 doses -OK to cont sodium bicarb 1950mg TID -Cont phos binders Please call [phone] with ?'s Subjective Subjective: SCr 5.5 A bit SOB Noted that testicles swollen UOP up to 2100cc Weight down 6lbs Objective Vital Signs and I&Os Vital Signs Date Time Temp Pulse Resp B/P B/P Pulse O2 O2 Flow FiO2 Mean Ox Delivery Rate 09/27 0910 138/78 09/27 0909 57 138/78 09/27 0800 96 Nasal 2.0L Cannula 09/27 0627 98.0 57 20 138/78 93 CPAP 09/27 0537 55 94 09/27 0309 55 93 09/27 0040 55 92 09/27 0036 56 84 09/27 0000 CPAP 2.5L 09/26 2213 98.3 56 23 166/84 94 Room Air 09/26 2158 57 94 09/26 2057 57 152/70 09/26 1730 57 152/70 09/26 1400 97.5 57 20 152/70 92 Room Air 09/26 1359 52 158/66 Intake & Output 09/27 1600 09/27 0400 09/26 1600 09/26 0400 09/25 1600 09/25 0400 Intake Total 240 400 480 72 420 308 Output Total 1000 1000 1100 300 900 350 Balance -760 -600 -620 -228 -480 -42 Intake, IV 22 20 18 Intake, Oral 240 400 480 50 400 290 Number 1 1 1 1 0 Bowel Movements Output, Urine 1000 1000 1100 300 900 350 Patient 320 lb 326 lb 327 lb Weight Weight Bed scale Bed scale Measurement Method Physical Exam: Gen - NAD HEENT - supple CV - RRR, no m/r/g Chest - clear anteriorly, no w/r/r Abd - soft, NTND Ext - +edema Neuro - AOX3, grossly nonfocal Current Medications: Current Medications Sig/Jose Angel Start time Last Medication Dose Route Stop Time Status Admin Amlodipine Besylate 10 MG DAILY 09/24 0330 AC 09/27 PO 0909 Atorvastatin Calcium 40 MG 1700 09/24 1700 AC 09/26 PO 1731 Bumetanide 3 MG BID 09/25 2100 AC 09/27 IV 0910 Calcium Acetate 667 MG WM 09/24 1708 AC 09/27 PO 1209 Epoetin Chu 15,000 UNITS ONCE A WEEK 09/26 1045 AC 09/26 CT 1214 Fenofibrate 145 MG DAILY 09/24 0900 AC 09/27 PO 0910 Heparin Sodium 5,000 UNIT Q8 09/24 0600 AC 09/27 (Porcine) CT 0524 Hydralazine HCl 25 MG FOUR TIMES A DAY 09/24 0330 AC 09/27 PO 0910 Magnesium Oxide 400 MG BID 09/27 0900 AC 09/27 PO 0910 Metaxalone 800 MG TID 09/24 0900 AC 09/27 PO 0909 Metolazone 10 MG BID 09/27 2100 UNVr PO Metolazone 10 MG DAILY 09/27 0900 DC 09/27 PO 0747 Metoprolol Tartrate 75 MG BID 09/24 0900 AC 09/27 PO 0909 Patient Medication 1 ED ONE ONE 09/26 1645 DC Teaching ED 09/26 1646 Sevelamer Carbonate 1,600 MG WM 09/24 1711 AC 09/27 PO 1209 Sodium Bicarbonate 1,950 MG TID 09/26 1400 AC 09/27 PO 0909 Sodium Hypochlorite 1 MEI BID 09/25 1100 AC 09/27 TOP 0916 Trazodone HCl 100 MG QPM 09/27 2100 AC PO Results Pertinent Lab Results: Laboratory Tests 09/27 09/26 09/25 0606 0607 0610 Chemistry Sodium (137 - 145 mmol/L) 145 145 144 Potassium (3.5 - 5.1 mmol/L) 4.7 4.9 5.1 Chloride (98 - 107 mmol/L) 115 H 116 H 116 H Carbon Dioxide (22 - 30 mmol/L) 18 L 17 L 16 L Anion Gap (5 - 16) 12 12 12 BUN (9 - 20 mg/dL) 60 H 60 H 60 H Creatinine (0.7 - 1.2 mg/dL) 5.5 *H 5.3 *H 5.1 *H Estimated GFR (>60 ml/min) 11 L 11 L 12 L BUN/Creatinine Ratio (7 - 25 %) 10.9 11.3 11.8 Phosphorus (2.5 - 4.5 mg/dL) 6.9 H 7.6 H Magnesium (1.6 - 2.3 mg/dL) 1.7 1.7 1.7 Iron (49 - 181 ug/dL) 63 TIBC (261 - 462 ug/dL) 271 Ferritin (17.9 - 464 ng/mL) 89.8 Imaging/Other Studies: None new
[2017-09-27 14:08] VITALS: BP 160/60
[2017-09-27 22:46] VITALS: BP 172/96
[2017-09-27 23:12] VITALS: BP 156/78
[2017-09-28 06:48] VITALS: BP 156/72
--- NOTE | 2017-09-28 11:08 | PN- Housestaff ---
See Addendum Subjective Follow-up For: Volume overload Tele-Events Since Last Visit: Sinus rhythm 5060 Subjective: Patient had significant pain last night in his back. He received some tramadol this morning and is feeling better. He has some shortness of breath but no chest pain, abdominal pain, nausea, vomiting, or diarrhea. Review of Systems Constitutional: Reports: no symptoms. EENTM: Reports: no symptoms. Cardiovascular: Reports: no symptoms. Respiratory: Reports: see HPI. Gastrointestinal: Reports: no symptoms. Genitourinary: Reports: no symptoms. Musculoskeletal: Reports: see HPI. Skin: Reports: no symptoms. Neurological/Psychological: Reports: no symptoms. Hematologic/Endocrine: Reports: no symptoms. Immunologic/Allergic: Reports: no symptoms. Objective Last 24 Hrs of Vital Signs/I&O Vital Signs Date Time Temp Pulse Resp B/P B/P Pulse O2 O2 Flow FiO2 Mean Ox Delivery Rate 09/28 0839 66 156/72 09/28 0838 66 156/72 09/28 0800 93 Nasal 2.0L Cannula 09/28 0648 98.7 66 20 156/72 92 Nasal 2.0L Cannula 09/28 0005 59 94 09/28 0000 CPAP 09/27 2312 156/78 09/27 2246 98.9 60 20 172/96 92 09/27 2133 66 170/90 09/27 1820 63 160/60 09/27 1600 Nasal 2.0L Cannula 09/27 1420 160/60 09/27 1408 98.4 63 22 160/60 93 Nasal 2.0L Cannula Intake & Output 09/28 1600 09/28 0800 09/28 0000 Intake Total 120 120 Output Total 1250 650 Balance -1130 -530 Intake, Oral 120 120 Output, Urine 1250 650 Patient 143.59 kg Weight Physical Exam General Appearance: Alert, Oriented X3, Cooperative, No Acute Distress Cardiovascular: Regular Rate, Normal S1, Normal S2 Lungs: crackles Abdomen: Normal Bowel Sounds, Soft, No Tenderness Extremities: No Edema, Normal Pulses, No Tenderness/Swelling Current Medications: Current Medications Sig/Jose Angel Start time Last Medication Dose Route Stop Time Status Admin Acetaminophen 650 MG Q4P PRN 09/27 1600 AC 09/28 PO 0638 Amlodipine Besylate 10 MG DAILY 09/24 0330 AC 09/28 PO 0838 Atorvastatin Calcium 40 MG 1700 09/24 1700 AC 09/27 PO 1820 Bumetanide 3 MG BID 09/25 2100 AC 09/28 IV 0913 Calcium Acetate 667 MG WM 09/24 1708 AC 09/28 PO 0838 Epoetin Chu 15,000 UNITS ONCE A WEEK 09/26 1045 AC 09/26 SC 1214 Fenofibrate 145 MG DAILY 09/24 0900 AC 09/28 PO 0839 Ferric Sodium 125 MG Q48 09/27 1500 AC 09/27 Gluconate Complex IV 10/11 0959 1439 Sodium Chloride 100 ML Ferric Sodium 125 MG Q48 09/27 1345 CAN Gluconate Complex IV 10/11 0901 Heparin Sodium 5,000 UNIT Q8 09/24 0600 AC 09/28 (Porcine) SC 0634 Hydralazine HCl 25 MG FOUR TIMES A DAY 09/24 0330 09/28 PO 0839 Magnesium Oxide 400 MG BID 09/27 0900 AC 09/28 PO 0838 Metaxalone 800 MG TID 09/24 0900 AC 09/28 PO 0839 Metolazone 10 MG BID 09/27 2100 AC 09/28 PO 0839 Metolazone 10 MG DAILY 09/27 0900 DC 09/27 PO 0747 Metoprolol Tartrate 75 MG BID 09/24 0900 AC 09/28 PO 0838 Sevelamer Carbonate 1,600 MG WM 09/24 1711 AC 09/28 PO 0838 Sodium Bicarbonate 1,950 MG TID 09/26 1400 AC 09/28 PO 0838 Sodium Hypochlorite 1 MEI BID 09/25 1100 AC 09/28 TOP 0920 Tramadol HCl 50 MG ONCE ONE 09/28 0930 MN 09/28 PO 09/28 0931 0934 Trazodone HCl 100 MG QPM 09/27 2100 09/27 PO 2130 Last 24 Hrs of Lab/[place] Results Last 24 Hrs of Labs/Mics: Laboratory Tests 09/28/17 0614: Phosphorus 5.7 H Assessment/Plan Assessment: 80-year-old gentleman former past medical history significant for 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 monthly, hypertension, coronary artery disease status post CABG 2005, sleep apnea on nocturnal CPAP, nonhealing left heel ulcer history of osteomyelitis, obstructive uropathy secondary to be 2/2 urethral strictures requiring intermittent straight catheterization. Assessment and plan: Stage IV/V CKD creatinine 5.1->5.3-->5.5 today his baseline creatinine is around 4.35-5.49 next dose of Epogen on 09/28, on 300mcg as an outpatient Epogen 15,000U weekly (I wrote for this) -Start ferrlecit 125mg IV every other day x8 doses Continue Phoslo currently on 3mg bumex and 10mg metolazone. Will increase methadone to 10 mg twice daily today with the goal to diurese him with target 3-4 L uop daily. per nephro Strict I/Os and daily weights, Aranda placed 09/26/[address] Cancino Metabolic acidosis On 1300mg sodium bicarb QID Acute on chronic HFpEF strict I/0s daily accurate weights continue metoprolol Type 2 DM accuchecks continue ISS Left heel non-healing ulcer/chest furuncle wound consult Surgery consulted, recomending heat application, will continue to monitor Back paintramadol as needed DVT ppx sc heparin full code renal dialysis diet Problem List: 1. Anasarca Pain Ratin Pain Location: back Pain Goal: Remain pain free Pain Plan: see ap Tomorrow's Labs & Rationales: cbc bep
[2017-09-28 14:54] VITALS: BP 152/70
[2017-09-28 22:06] VITALS: BP 150/60
[2017-09-29 07:02] VITALS: BP 158/62
[2017-09-29 08:14] LABS: ABSOLUTE BASOPHIL COUNT 0 /CUMM (0.0-0.2); ABSOLUTE EOSINOPHIL COUNT 0 /CUMM (0.0-0.7); ABSOLUTE GRANULOCYTE CT 6.9 /CUMM (1.4-6.5); ABSOLUTE MONOCYTE COUNT 1.1 /CUMM (0.10-0.60); BASOPHIL % 0.1 % (0.0-2.0); EOSINOPHIL % 0.1 % (0-5); GRANULOCYTE % 76.6 % (42.2-75.2); MEAN CORPUSCULAR HGB 29.7 PG (27.0-31.0); MEAN CORPUSCULAR HGB CONC 32.4 G/DL (33.0-37.0); MEAN CORPUSCULAR VOLUME 91.6 FL (80.0-94.0); MEAN PLATELET VOLUME 9.1 FL (7.4-10.4); PLATELET COUNT 182 /CUMM (130-400); RBC DISTRIBUTION WIDTH 17.1 % (11.5-14.5); RED BLOOD CELL CT 3.17 /CUMM (4.70-6.10); WHITE BLOOD CELL COUNT 8.9 /CUMM (4.8-10.8)
--- NOTE | 2017-09-29 08:16 | PN- Housestaff ---
Loki CASEY,Yesika 09/29/17 0815: Subjective Follow-up For: Volume overload Subjective: Patient seen and examined at bedside. No overnight events. Patient complains of right knee pain. Review of Systems Constitutional: Reports: no symptoms, see HPI. Objective Last 24 Hrs of Vital Signs/I&O Vital Signs Date Time Temp Pulse Resp B/P B/P Pulse O2 O2 Flow FiO2 Mean Ox Delivery Rate 09/29 1330 66 158/62 09/29 0831 66 158/62 09/29 0830 66 158/62 09/29 0702 99.5 66 20 158/62 91 Nasal 2.0L Cannula 09/29 0115 61 94 09/29 0000 95 Nasal 2.0L Cannula 09/28 2207 60 88 09/28 2206 99.5 66 22 150/60 93 Nasal 2.0L Cannula 09/28 2141 66 150/62 09/28 1755 64 152/70 09/28 1600 Nasal 2.0L Cannula 09/28 1454 98.9 64 20 152/70 95 Nasal Cannula 09/28 1440 66 156/72 Intake & Output 09/29 1600 09/29 0800 09/29 0000 Intake Total 400 600 Output Total 1400 1000 Balance -1000 -400 Intake, Oral 400 600 Output, Urine 1400 1000 Patient 310 lb Weight Weight Bed scale Measurement Method Physical Exam General Appearance: Alert, Oriented X3, Cooperative, No Acute Distress Cardiovascular: Regular Rate, Normal S1, Normal S2 Lungs: Clear to Auscultation Abdomen: Normal Bowel Sounds, Soft, No Tenderness, No Hepatospenomegaly Neurological: Normal Speech, Normal Tone Current Medications: Current Medications Sig/Jose Angel Start time Last Medication Dose Route Stop Time Status Admin Acetaminophen 650 MG Q4P PRN 09/27 1600 AC 09/28 PO 0638 Amlodipine Besylate 10 MG DAILY 09/24 0330 AC 09/29 PO 0831 Atorvastatin Calcium 40 MG 1700 09/24 1700 AC 09/28 PO 1642 Bumetanide 3 MG BID 09/25 2100 AC 09/29 IV 0832 Calcium Acetate 667 MG WM 09/24 1708 AC 09/29 PO 1258 Epoetin Chu 15,000 UNITS ONCE A WEEK 09/26 1045 AC 09/26 SC 1214 Fenofibrate 145 MG DAILY 09/24 0900 AC 09/29 PO 0830 Ferric Sodium 125 MG Q48 09/27 1500 AC 09/29 Gluconate Complex IV 10/11 0959 1246 Sodium Chloride 100 ML Heparin Sodium 5,000 UNIT Q8 09/24 0600 AC 09/29 (Porcine) SC 1259 Hydralazine HCl 25 MG FOUR TIMES A DAY 09/24 0330 AC 09/29 PO 1330 Magnesium Oxide 400 MG BID 09/27 0900 AC 09/29 PO 0831 Metaxalone 800 MG TID 09/24 0900 AC 09/29 PO 1300 Metolazone 10 MG BID 09/27 2100 AC 09/29 PO 0831 Metoprolol Tartrate 75 MG BID 09/24 0900 AC 09/29 PO 0831 Morphine Sulfate 2 MG ONCE ONE 09/29 0700 DC 09/29 IV 09/29 0701 0729 Sevelamer Carbonate 1,600 MG WM 09/24 1711 AC 09/29 PO 1258 Sodium Bicarbonate 1,950 MG TID 09/26 1400 AC 09/29 PO 1255 Sodium Hypochlorite 1 MEI BID 09/25 1100 AC 09/29 TOP 0833 Tramadol HCl 50 MG ONCE ONE 09/28 2114 DC 09/28 PO 09/28 211 2140 Trazodone HCl 100 MG QPM 09/27 2100 AC 09/28 PO 2139 Last 24 Hrs of Lab/[place] Results Last 24 Hrs of Labs/Mics: Laboratory Tests 09/29/17611: Anion Gap 12, Estimated GFR 11 L, BUN/Creatinine Ratio 10.4, CBC w Diff NO MAN DIFF REQ, RBC 3.17 L, MCV 91.6, MCH 29.7, MCHC 32.4 L, RDW 17.1 H, MPV 9.1, Gran % 76.6 H, Lymphocytes % 11.3 L, Monocytes % 11.9 H, Eosinophils % 0.1, Basophils % 0.1, Absolute Granulocytes 6.9 H, Absolute Lymphocytes 1.0 L, Absolute Monocytes 1.1 H, Absolute Eosinophils 0, Absolute Basophils 0 Assessment/Plan Assessment: 80-year-old gentleman former past medical history significant for 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 monthly, hypertension, coronary artery disease status post CABG 2005, sleep apnea on nocturnal CPAP, nonhealing left heel ulcer history of osteomyelitis, obstructive uropathy secondary to be 2/2 urethral strictures requiring intermittent straight catheterization. Assessment and plan: Stage IV/V CKD creatinine 5.5-->5.3 today next dose of Epogen on 09/28, on 300mcg as an outpatient Epogen 15,000U weekly (I wrote for this) -Start ferrlecit 125mg IV every other day x8 doses Continue Phoslo currently on 3mg bumex and 10mg metolazone. the goal to diurese him with target 3-4 L uop daily. per nephro Strict I/Os and daily weights, Aranda placed 09/26/[address] Cancino. Metabolic acidosis On 1300mg sodium bicarb QID Acute on chronic HFpEF strict I/0s daily accurate weights continue metoprolol Right knee pain X-ray right knee taken which shows large suprapatellar effusion. Stat ortho consult placed. Unlikely septic joint. We will start him on prednisone 40 daily [given that NSAIDs and colchicine and not contraindicated] Type 2 DM accuchecks continue ISS Left heel non-healing ulcer/chest furuncle wound consult Surgery consulted, recomending heat application, will continue to monitor Back paintramadol as needed DVT ppx sc heparin full code renal dialysis diet Problem List: 1. Anasarca Pain Ratin Pain Location: rt knee Pain Goal: Remain pain free Pain Plan: tylenol Tomorrow's Labs & Rationales: cbc,bep Rebecca Geiger 09/29/17 0929: Attending MD Review Statement Attending Statement Attending MD Statement: examined this patient, discuss w/resident/PA/LIFE INSURANCE SPECIALIST, agreed w/resident/PA/LIFE INSURANCE SPECIALIST, discussed with family, reviewed EMR data (avail), discussed with nursing, discussed with case mgmt, reviewed images, amended to note Attending Assessment/Plan: Patient with siginificant fluid overlaod with slow improvement with creatinine function decreased to 5.3. Patient is receiving high dose of intravenous diuretics as per nephrology recommendations. Also receiving metalazone. Achieve negative fluid balance atleast 3-4 l. Continue current care for now.. Follow nephrology regarding discharge plans.
--- NOTE | 2017-09-29 11:10 | RADIOLOGY REPORT ---
EXAMINATION: XR KNEE, RIGHT CLINICAL INFORMATION: Right knee pain. Look for any effusion. COMPARISON: None TECHNIQUE: Four views of the right knee performed on 5 images. FINDINGS: Large suprapatellar knee joint effusion is seen. Enthesopathic ossification along the superior pole of the patella is noted. There is mild spurring in the patellofemoral compartment and at the intercondylar notch and tibial spines. Joint space height is well-maintained in all 3 compartments. Chondrocalcinosis is seen in the medial and lateral femoral compartments. Arteriovascular calcifications is seen in the soft tissues. IMPRESSION: 1. Large suprapatellar knee joint effusion. 2. Chondrocalcinosis and mild osteoarthritic changes in the right knee.
[2017-09-29 14:24] VITALS: BP 160/80
--- NOTE | 2017-09-29 14:30 | Discharge Summary ---
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 monthly, hypertension, coronary artery disease status post CABG (2005), sleep apnea on nocturnal CPAP, nonhealing left heel ulcer with history of osteomyelitis, admitted to [facility] for approximately 20 pounds of weight gain over a week and a half. CT abdomen and pelvis notable for bilateral pleural effusions, moderate amount of ascites. Kidneys noted to be atrophic bilaterally with no hydronephrosis. He was admitted to telemetry floor and the following issues were addressed: Stage IV/V CKD No chronic uremic symptoms were noted to warrant dialysis initiation. Fluid overload as evidenced by exam, imaging, and history. Nephrology was consulted. His Creatinine ranged around 5.1-5.5 today. Per his records his baseline creatinine has been >6 . He was diuresed with Metalozone 10 mg BID and his increase bumex to 3mg TID from BID with target goal to diurese him approx 3-4L/ day pending his hemodynamical stability. He was continued Phoslo daily and Epogen 15,000U weekly. He has apparently decided on PD as HD modality. Anemia of Chronic Disease Hg was 11.0 on admission. Iron, TIBC and ferritin were with in normal limits. He was started on Ferrilicit 125mg IV every other day for a total of 8 doses Obstructive uropathy Aranda placed 09/26/[address] Cancino Metabolic acidosis Continued on 1300mg sodium bicarb QID Acute on chronic [place] [address]. Continued on metoprolol,hydralazine, norvasc and liptor Type 2 DM His fingersticks remained well controlled on ISS Left heel non-healing ulcer Wound care service was consulted. Acute pseudo gout He complained of right knee swelling. Knee xray showed arge suprapatellar knee joint effusion, chondrocalcinosis and mild osteoarthritic changes in the right knee. Orthopedics was consulted, Low suspcion for septic joint in view of no spike in temperature and absent leukocytosis. He was started on prednisone 40mg daily with taper for acute pseudo gout given Chondrocalcinosis of knee joint. Imaging showed inguinal lymphadenopathy, pathologically enlarged by short axis size criteria on the left. This is nonspecific, presumably reactive but metastatic lymphadenopathy could be considered if the patient has a known primary malignancy. Will be needed to be followed up in outpatient setting. DVT ppx sc heparin full code renal dialysis diet PT recommending STR Complications: none Allergies: Coded Allergies: baclofen (LOSE EYESIGHT AND MOTOR SKILLS PER PT 09/23/17) ciprofloxacin (From CIPRO) (FEVER PT PT 09/23/17) lisinopril (COUGH PER PT 09/23/17) Significant Procedures: SERVICE DATE: 09/23/17 EXAM TYPE: CAT - CT ABD & PELVIS W/O IV CONTRAS; CT CHEST WO IV CONTRAST FINDINGS: CHEST: LUNG: There are calcified granulomata bilaterally. There is tubular and curvilinear consolidation in the lingula and left lower lobe with air bronchograms. MEDIASTINUM: There are calcified hilar and mediastinal lymph nodes consistent with prior granulomatous disease. The patient is status post median sternotomy. The main pulmonary artery is dilated, suggesting pulmonary arterial hypertension. Normal caliber thoracic aorta. Heart size upper limits of normal. There are coronary artery calcifications. PLEURA: Moderate bilateral pleural effusions, left greater than right. CHEST WALL/AXILLA: Bilateral gynecomastia. No axillary or internal mammary lymphadenopathy. ABDOMEN/PELVIS: Lack of intravenous contrast limits evaluation of the solid visceral organs including the liver, spleen, pancreas, and kidneys. LIVER, GALLBLADDER, AND BILIARY TREE: Noncontrast evaluation of the liver is grossly normal. No gross biliary ductal dilatation. Gallbladder is distended. There is ascites, limiting evaluation for pericholecystic fluid or gallbladder wall thickening. PANCREAS: Mild pancreatic atrophy. No pancreatic mass or peripancreatic inflammatory changes. SPLEEN: A few punctate granulomata are seen in the spleen. The spleen is not enlarged. ADRENAL GLANDS: No adrenal mass. KIDNEYS AND URETERS: Atrophic kidneys bilaterally. No hydronephrosis. GASTROINTESTINAL TRACT: There are postoperative changes of the stomach, question prior sleeve gastrectomy. Small bowel and colon are nondilated. There is severe sigmoid diverticulosis without evidence of diverticulitis. Although the appendix is not definitely seen, there are no right lower quadrant inflammatory changes to suggest acute appendicitis. ABDOMINAL WALL: There is diffuse anasarca. Fat-containing left inguinal hernia. LYMPHOVASCULAR STRUCTURES: Normal caliber abdominal aorta with moderate calcified atherosclerotic change. There is extensive mesenteric atherosclerotic vascular calcification. Prominent bilateral inguinal lymph nodes are seen. The largest is on the left and measures 2.8 x 2 cm, pathologically enlarged, nonspecific. BLADDER: The urinary bladder is mildly distended and circumferentially thick walled, which could be due to underdistention. There is gas nondependent lesion in the urinary bladder. PELVIC VISCERA: The prostate and seminal vesicles are normal. OSSEOUS STRUCTURES: Multilevel degenerative changes of the thoracolumbar spine are seen. There appears to be diffuse osseous sclerosis which can be seen in the setting of renal osteodystrophy. IMPRESSION: Bilateral pleural effusions, moderate volume of ascites, and anasarca suggesting volume overload. The kidneys are atrophic. There is left lower lobe consolidation with air bronchograms. This is at least in part compressive atelectasis from the left pleural effusion but superimposed aspiration or pneumonia are possible as well. There is inguinal lymphadenopathy, pathologically enlarged by short axis size criteria on the left. This is nonspecific, presumably reactive but metastatic lymphadenopathy could be considered if the patient has a known primary malignancy. Evidence of prior granulomatous disease. SERVICE DATE: 09/25/1708 EXAM TYPE: CARD - ECHOCARDIOGRAM FINDINGS Left Ventricle Mild left ventricular dilatation. Mild concentric left ventricular hypertrophy. Normal left ventricular ejection fraction visually estimated at >60 %. No obvious regional wall motion abnormalities. Right Ventricle Normal right ventricular size and function. Right Atrium Normal right atrial size. Left Atrium Mild left atrial dilatation. Mitral Valve Mitral valve thickened. Trace mitral regurgitation. Aortic Valve Diffuse thickening (sclerosis) of the aortic valve cusps without reduced excursion. No aortic stenosis. Trace aortic regurgitation. Tricuspid Valve Tricuspid valve not well visualized, grossly normal. Mild tricuspid regurgitation. Right ventricular systolic pressure estimated to be elevated at 52 mmHg. Pulmonic Valve Pulmonic valve not well visualized, grossly normal. Mild pulmonic regurgitation. Pericardium No pericardial effusion. Pleural effusion is noted. Great Vessels Normal size aortic root. CONCLUSIONS Mild left ventricular dilatation. Mild concentric left ventricular hypertrophy. Normal left ventricular ejection fraction visually estimated at >60 Mild left atrial dilatation. Trace mitral regurgitation. Trace aortic regurgitation. Mild tricuspid regurgitation. Mild pulmonic regurgitation. Right ventricular systolic pressure estimated to be elevated at 52 mmHg. SERVICE DATE: 09/29/17- EXAM TYPE: RAD - XRY-KNEE, RIGHT FINDINGS: Large suprapatellar knee joint effusion is seen. Enthesopathic ossification along the superior pole of the patella is noted. There is mild spurring in the patellofemoral compartment and at the intercondylar notch and tibial spines. Joint space height is well-maintained in all 3 compartments. Chondrocalcinosis is seen in the medial and lateral femoral compartments. Arteriovascular calcifications is seen in the soft tissues. IMPRESSION: 1. Large suprapatellar knee joint effusion. 2. Chondrocalcinosis and mild osteoarthritic changes in the right knee. Disposition Summary Disposition Principal Diagnosis: Anasarca secondary to CKD stage IV/V Additional Diagnosis: Acute on chronic HFpEF Metabolic Acidosis T2DM Non-healing left heel ulcer
--- NOTE | 2017-09-29 15:16 | Event Note ---
Event Note Event Note: Knee XRY 1. Large suprapatellar knee joint effusion. 2. Chondrocalcinosis and mild osteoarthritic changes in the right knee. Spoke with orthopedician protection specialist, doesnt look like a septic joint on exam. He is afebrile, with normal WBC count. He has knee swelling on exam with no redness/warmth. Tender to touch and limited ROM. * No recommendations for arthocentesis. * Will treat him for acute pseudo gout given Chondrocalcinosis of knee joint. * Not a candidate for NSADIS/COLCHINE given ckd/esrd. * will start prednisone 40mg daily with taper. * Closely monitor fever/leukocytosis. * Discussed with Dr Geiger and Dr Caputo. * Will Call ortho if there is no significant improvement.
[2017-09-29 21:50] VITALS: BP 150/70
--- NOTE | 2017-09-29 23:32 | RADIOLOGY REPORT ---
EXAMINATION: CHEST 1 VIEW CLINICAL INFORMATION: Shortness of breath. COMPARISON: September 23, 2017. TECHNIQUE: An AP view of the chest is provided. FINDINGS: The cardiac silhouette is enlarged, though stable. Intact midline sternal wires are present. There are small bilateral pleural effusions identified with associated bibasilar airspace disease. There is also mild interstitial prominence throughout both lungs. The osseous structures are stable. IMPRESSION: Stable cardiomegaly with mild interstitial prominence likely manufacturer's representative of mild vascular congestion. Bilateral pleural effusions with associated bibasilar airspace disease.
[2017-09-30 06:00] VITALS: BP 140/70
[2017-09-30 07:56] LABS: ABSOLUTE BASOPHIL COUNT 0 /CUMM (0.0-0.2); ABSOLUTE EOSINOPHIL COUNT 0 /CUMM (0.0-0.7); ABSOLUTE GRANULOCYTE CT 8.1 /CUMM (1.4-6.5); ABSOLUTE LYMPH COUNT 0.7 /CUMM (1.2-3.4); ABSOLUTE MONOCYTE COUNT 0.5 /CUMM (0.10-0.60); BASOPHIL % 0 % (0.0-2.0); EOSINOPHIL % 0 % (0-5); GRANULOCYTE % 86.6 % (42.2-75.2); HEMATOCRIT 30.3 % (42-52); MEAN CORPUSCULAR HGB CONC 32.5 G/DL (33.0-37.0); MEAN CORPUSCULAR VOLUME 92.4 FL (80.0-94.0); MEAN PLATELET VOLUME 9.1 FL (7.4-10.4); PLATELET COUNT 181 /CUMM (130-400); RBC DISTRIBUTION WIDTH 16.1 % (11.5-14.5); RED BLOOD CELL CT 3.28 /CUMM (4.70-6.10)
--- NOTE | 2017-09-30 08:10 | PN- Housestaff ---
Keenan Maciasleticiaendy 09/30/17 0809: Subjective Follow-up For: Acute on chronic HFpEF History of coronary disease, status post bypass surgery Diabetes CKD Normocytic anemia Subjective: Seen and examined patient this morning. Complaining of right knee pain. Continues to feel short of breath at rest. Review of Systems Constitutional: Reports: see HPI. Objective Last 24 Hrs of Vital Signs/I&O Vital Signs Date Time Temp Pulse Resp B/P B/P Pulse O2 O2 Flow FiO2 Mean Ox Delivery Rate 09/30 1522 98.3 64 20 162/80 92 Nasal Cannula 09/30 1218 60 130/70 09/30 0816 62 140/70 09/30 0816 62 140/70 09/30 0800 97 Nasal 4.0L Cannula 09/30 0600 98.5 66 20 140/70 93 Nasal 4.0L Cannula 09/30 0510 92 09/30 0053 64 90 09/30 0000 CPAP 6.0L 09/29 2213 100 88 09/29 2150 99.9 61 20 150/70 09/29 2130 87 Nasal 3.0L Cannula 09/29 2052 66 160/80 09/29 1720 67 160/80 Intake & Output 09/30 1600 09/30 0800 09/30 0000 Intake Total 450 120 120 Output Total 700 900 700 Balance -250 -780 -580 Intake, IV 50 Intake, Oral 400 120 120 Output, Urine 700 900 700 Patient 307 lb Weight Weight Bed scale Measurement Method Physical Exam General Appearance: Alert, Oriented X3, Cooperative, No Acute Distress Cardiovascular: Regular Rate, Normal S1, Normal S2, systolic murmur Lungs: b/l decreased BS Current Medications: Current Medications Sig/Jose Angel Start time Last Medication Dose Route Stop Time Status Admin Acetaminophen 1,000 MG Q6H 09/30 0900 AC 09/30 N/A 1 UNIT IV 10/01 0314 1203 Acetaminophen 650 MG Q4P PRN 09/27 1600 AC 09/28 PO 0638 Amlodipine Besylate 10 MG DAILY 09/24 0330 AC 09/30 PO 0816 Atorvastatin Calcium 40 MG 1700 09/24 1700 AC 09/29 PO 1719 Bumetanide 3 MG TID 09/30 1400 AC 09/30 IV 1343 Bumetanide 3 MG BID 09/25 2100 DC 09/30 IV 0827 Calcium Acetate 667 MG WM 09/24 1708 AC 09/30 PO 1201 Epoetin Chu 15,000 UNITS ONCE A WEEK 09/26 1045 AC 09/26 SC 1214 Fenofibrate 145 MG DAILY 09/24 0900 AC 09/30 PO 0817 Ferric Sodium 125 MG Q48 09/27 1500 AC 09/29 Gluconate Complex IV 10/11 0959 1246 Sodium Chloride 100 ML Furosemide 20 MG ONCE ONE 09/30 0030 DC IV 09/30 0031 Heparin Sodium 5,000 UNIT Q8 09/24 0600 AC 09/30 (Porcine) SC 1217 Hydralazine HCl 25 MG FOUR TIMES A DAY 09/24 0330 AC 09/30 PO 1218 Hydromorphone HCl 2 MG ONCE ONE 09/30 599 DC 09/30 PO 09/30 600 06 Hydromorphone HCl 0.4 MG ONCE ONE 09/29 2029 DC 09/29 IV 09/29 Magnesium Oxide 400 MG BID 09/27 0900 AC 09/30 PO 0816 Metaxalone 800 MG TID 09/24 0900 AC 09/30 PO 1201 Metolazone 10 MG BID 09/27 2100 AC 09/30 PO 0816 Metoprolol Tartrate 75 MG BID 09/24 0900 AC 09/30 PO 0816 Prednisone 40 MG DAILY 09/29 1427 AC 09/30 PO 0816 Sevelamer Carbonate 1,600 MG WM 09/24 1711 AC 09/30 PO 1201 Sodium Bicarbonate 1,950 MG TID 09/26 1400 AC 09/30 PO 1218 Sodium Hypochlorite 1 MEI BID 09/25 1100 AC 09/29 TOP 0833 Trazodone HCl 100 MG QPM 09/27 2100 AC 09/29 PO 2051 Last 24 Hrs of Lab/[place] Results Last 24 Hrs of Labs/Mics: Laboratory Tests 09/30/17 0603: Anion Gap 14, Estimated GFR 11 L, BUN/Creatinine Ratio 10.4, CBC w Diff NO MAN DIFF REQ, RBC 3.28 L, MCV 92.4, MCH 30.0, MCHC 32.5 L, RDW 16.1 H, MPV 9.1, Gran % 86.6 H, Lymphocytes % 7.7 L, Monocytes % 5.7, Eosinophils % 0, Basophils % 0, Absolute Granulocytes 8.1 H, Absolute Lymphocytes 0.7 L, Absolute Monocytes 0.5, Absolute Eosinophils 0, Absolute Basophils 0 09/29/17 1915: ESR Westergren 59 H Assessment/Plan Assessment: 80-year-old gentleman former past medical history significant for 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 monthly, hypertension, coronary artery disease status post CABG 2005, sleep apnea on nocturnal CPAP, nonhealing left heel ulcer history of osteomyelitis, obstructive uropathy secondary to be 2/2 urethral strictures requiring intermittent straight catheterization. Assessment and plan: Stage IV/V CKD Good UP >3L/day creatinine 5.1->5.3-->5.5-5.3-->5.4 today his baseline creatinine is around 4.35-5.49 Epogen 15,000U weekly on ferrlecit 125mg IV every other day x8 doses Continue Phoslo currently on 3mg bumex and 10mg metolazone. Per nephro will continue methadone to 10 mg twice daily and increase bumex to 3mg TID target 3-4 L uop daily. Strict I/Os and daily weights, March placed 09/26/[address] Cancino avoid nephrotoxic meds Metabolic acidosis On 1300mg sodium bicarb QID Acute on chronic HFpEF strict I/0s daily accurate weights continue metoprolol Type 2 DM accuchecks continue ISS Left heel non-healing ulcer/chest furuncle wound consult Surgery consulted, recomending heat application, will continue to monitor Acute pseudo gout ortho consulted on prednisone 40mg daily with taper. IV tylenol for pain control Call ortho if there is no significant improvement. DVT ppx sc heparin full code renal dialysis diet Problem List: 1. Bilateral pleural effusion 2. Diabetes Pain Ratin Pain Location: 5/10 Pain Goal: Pain 4 or less Pain Plan: IV tyelenol Tomorrow's Labs & Rationales: bep/evita/mag Rebecca Geiger 09/30/17 1013: Attending MD Review Statement Attending Statement Attending MD Statement: examined this patient, discuss w/resident/PA/ALARM ADJUSTER, agreed w/resident/PA/ALARM ADJUSTER, discussed with family, reviewed EMR data (avail), discussed with nursing, discussed with case mgmt, reviewed images, amended to note Attending Assessment/Plan: Patient seen/examined bedside. Vitals stable. Cr 5.3 , Urine output+. Oxygen supplementtion 2-3l nc. Trial to wean off oxygen but desaturates. Negative balance for past 24-48 hrs. Patient c/o knee pain with chondrocalcinosis. progressive worsening of CKD with fluid overlaod: c/w iv diuretics and on metazolone, nephrology follwoing, monitor I/O strictly. Congestive heart failure diastolic stable Left non healing ulcer present on admission - Wound care consulted, follow recommendations Knee pain likley pseudogout short course of steroids uretheral stricture urology follwoing. s/p cysto-march. Atelecatsis wit hypoxia. Trial wean off oxygen and check walking pulse oximetry. PT evaluation for general physical deconditioning DVT prophylaxis Patient's brother is his healthcare proxy if required. Patient is full code Discharge planning will be to resume patient care to his lead shop operator at [facility] for peritoneal diallysis in near future. He has been taking peritoneal dialysis lessons as outpatient. If we can titrate his diuretics and convert to PO and follow PT recommendations.
[2017-09-30 09:04] LABS: WHITE BLOOD CELL COUNT 9.4 /CUMM (4.8-10.8)
--- NOTE | 2017-09-30 11:06 | PN- Nephrology ---
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 No chronic uremic symptoms to warrant dialysis initiation. Has decided on PD as HD modality. Follows with Dr. Pradhan. Fluid overload - Remains volume expanded. Making >3L/day although still edematous with significant fluid visualized on chest x-ray. I think we should target closer to 4L/day given his size. Can continue to do this so long as his renal function tolerates it. Anemia - On weekly Epogen and IV iron replacement. Met acidosis - On 1300mg sodium bicarb QID which is a salt load but can help stabilize kidney function - ok to continue. Bicarb improving. Hyperphos - Needs low Phos diet - can be continued on his Phos binders. Phos improving. Suggestion: -Increase bumex to 3mg IV q8. OK to cont metolazone 10mg PO BID (give 30min prior to 2 of the bumex doses) -Target 4L/day of UOP -Daily standing weights -Epogen 15,000U weekly + ferrlecit 125mg IV every other day x8 doses -OK to cont sodium bicarb 1950mg TID -Cont phos binders Please call [phone] with ?'s Subjective Subjective: Making >3L urine/day on current diuretic regimen SCr stable at 5.4 Still some SOB on supplemental O2 but able to lay flat +R knee pain - no prior history Objective Vital Signs and I&Os Vital Signs Date Time Temp Pulse Resp B/P B/P Pulse O2 O2 Flow FiO2 Mean Ox Delivery Rate 09/30 0816 62 140/70 09/30 0816 62 140/70 09/30 0800 97 Nasal 4.0L Cannula 09/30 0600 98.5 66 20 140/70 93 Nasal 4.0L Cannula 09/30 0510 92 09/30 0053 64 90 09/30 0000 CPAP 6.0L 09/29 2213 100 88 09/29 2150 99.9 61 20 150/70 09/29 2130 87 Nasal 3.0L Cannula 09/29 2052 66 160/80 09/29 1720 67 160/80 09/29 1424 99.8 67 20 160/80 91 Nasal Cannula 09/29 1330 66 158/62 Intake & Output 09/30 1600 09/30 0400 09/29 1600 09/29 0400 09/28 1600 09/28 0400 Intake Total 070 681 3530 600 540 120 Output Total 859 147 8339 1000 2350 650 Balance -780 -580 -1350 -400 -1810 -530 Intake, IV 20 Intake, Oral 121 420 2075 600 520 120 Output, Urine 814 288 9779 1000 2350 650 Patient 307 lb 310 lb 317 lb Weight Weight Bed scale Bed scale Measurement Method Physical Exam: Gen - mildly dyspneic HEENT - supple CV - RRR, no m/r/g Chest - clear, no w/r/r Abd - soft, NTND Ext - ++edema Neuro - AOX3, grossly nonfocal Current Medications: Current Medications Sig/Jose Angel Start time Last Medication Dose Route Stop Time Status Admin Acetaminophen 1,000 MG Q6H 09/30 0900 N/A 1 UNIT IV 10/01 0314 Acetaminophen 650 MG Q4P PRN 09/27 1600 AC 09/28 PO 0638 Amlodipine Besylate 10 MG DAILY 09/24 0330 AC 09/30 PO 0816 Atorvastatin Calcium 40 MG 1700 09/24 1700 AC 09/29 PO 1719 Bumetanide 3 MG BID 09/25 2100 AC 09/30 IV 0827 Calcium Acetate 667 MG WM 09/24 1708 AC 09/30 PO 0817 Epoetin Chu 15,000 UNITS ONCE A WEEK 09/26 1045 09/26 [place] 1214 Fenofibrate 145 MG DAILY 09/24 0900 AC 09/30 PO 0817 Ferric Sodium 125 MG Q48 09/27 1500 AC 09/29 Gluconate Complex IV 10/11 0959 1246 Sodium Chloride 100 ML Furosemide 20 MG ONCE ONE 09/30 0030 DC IV 09/30 0031 Heparin Sodium 5,000 UNIT Q8 09/24 0600 AC 09/30 (Porcine) [place] 0526 Hydralazine HCl 25 MG FOUR TIMES A DAY 09/24 0330 AC 09/30 PO 0816 Hydromorphone HCl 2 MG ONCE ONE 09/30 06 DC 09/30 PO 09/30 0601 0617 Hydromorphone HCl 0.4 MG ONCE ONE 09/29 2030 DC 09/29 IV 09/29 Magnesium Oxide 400 MG BID 09/27 09 AC 09/30 PO 0816 Metaxalone 800 MG TID 09/24 09 AC 09/30 PO 0815 Metolazone 10 MG BID 09/27 2100 AC 09/30 PO 0816 Metoprolol Tartrate 75 MG BID 09/24 0900 AC 09/30 PO 0816 Prednisone 40 MG DAILY 09/29 1427 AC 09/30 PO 0816 Sevelamer Carbonate 1,600 MG WM 09/24 1711 AC 09/30 PO 0816 Sodium Bicarbonate 1,950 MG TID 09/26 1400 AC 09/30 PO 08 Sodium Hypochlorite 1 MEI BID 09/25 1100 AC 09/29 TOP 0833 Tramadol HCl 50 MG ONCE ONE 09/29 1445 DC 09/29 PO 09/29 1446 1510 Trazodone HCl 100 MG QPM 09/27 2100 AC 09/29 PO 2051 Results Pertinent Lab Results: Laboratory Tests 09/30 09/29 06 1915 Chemistry Sodium (137 - 145 mmol/L) 141 Potassium (3.5 - 5.1 mmol/L) 4.5 Chloride (98 - 107 mmol/L) 107 Carbon Dioxide (22 - 30 mmol/L) 20 L Anion Gap (5 - 16) 14 BUN (9 - 20 mg/dL) 56 H Creatinine (0.7 - 1.2 mg/dL) 5.4 *H Estimated GFR (>60 ml/min) 11 L BUN/Creatinine Ratio (7 - 25 %) 10.4 Hematology CBC w Diff NO MAN DIFF REQ WBC (4.8 - 10.8 /CUMM) 9.4 RBC (4.70 - 6.10 /CUMM) 3.28 L Hgb (14.0 - 18.0 G/DL) 9.9 L Hct (42 - 52 %) 30.3 L MCV (80.0 - 94.0 FL) 92.4 MCH (27.0 - 31.0 PG) 30.0 MCHC (33.0 - 37.0 G/DL) 32.5 L RDW (11.5 - 14.5 %) 16.1 H Plt Count (130 - 400 /CUMM) 181 MPV (7.4 - 10.4 FL) 9.1 Gran % (42.2 - 75.2 %) 86.6 H Lymphocytes % (20.5 - 51.1 %) 7.7 L Monocytes % (1.7 - 9.3 %) 5.7 Eosinophils % (0 - 5 %) 0 Basophils % (0.0 - 2.0 %) 0 Absolute Granulocytes (1.4 - 6.5 /CUMM) 8.1 H Absolute Lymphocytes (1.2 - 3.4 /CUMM) 0.7 L Absolute Monocytes (0.10 - 0.60 /CUMM) 0.5 Absolute Eosinophils (0.0 - 0.7 /CUMM) 0 Absolute Basophils (0.0 - 0.2 /CUMM) 0 ESR Westergren (0 - 10 MM) 59 H 09/29 09/28 0612 0614 Chemistry Sodium (137 - 145 mmol/L) 143 Potassium (3.5 - 5.1 mmol/L) 4.2 Chloride (98 - 107 mmol/L) 111 H Carbon Dioxide (22 - 30 mmol/L) 20 L Anion Gap (5 - 16) 12 BUN (9 - 20 mg/dL) 55 H Creatinine (0.7 - 1.2 mg/dL) 5.3 *H Estimated GFR (>60 ml/min) 11 L BUN/Creatinine Ratio (7 - 25 %) 10.4 Uric Acid (3.5 - 8.5 mg/dL) 9.9 H Phosphorus (2.5 - 4.5 mg/dL) 5.7 H C-Reactive Prot, Quant (<1.0 mg/dL) > 9.0 H Hematology CBC w Diff NO MAN DIFF REQ WBC (4.8 - 10.8 /CUMM) 8.9 RBC (4.70 - 6.10 /CUMM) 3.17 L Hgb (14.0 - 18.0 G/DL) 9.4 L Hct (42 - 52 %) 29.0 L MCV (80.0 - 94.0 FL) 91.6 MCH (27.0 - 31.0 PG) 29.7 MCHC (33.0 - 37.0 G/DL) 32.4 L RDW (11.5 - 14.5 %) 17.1 H Plt Count (130 - 400 /CUMM) 182 MPV (7.4 - 10.4 FL) 9.1 Gran % (42.2 - 75.2 %) 76.6 H Lymphocytes % (20.5 - 51.1 %) 11.3 L Monocytes % (1.7 - 9.3 %) 11.9 H Eosinophils % (0 - 5 %) 0.1 Basophils % (0.0 - 2.0 %) 0.1 Absolute Granulocytes (1.4 - 6.5 /CUMM) 6.9 H Absolute Lymphocytes (1.2 - 3.4 /CUMM) 1.0 L Absolute Monocytes (0.10 - 0.60 /CUMM) 1.1 H Absolute Eosinophils (0.0 - 0.7 /CUMM) 0 Absolute Basophils (0.0 - 0.2 /CUMM) 0 Imaging/Other Studies: EXAM TYPE: RAD - XRY-PORTABLE CHEST XRAY EXAMINATION: CHEST 1 VIEW CLINICAL INFORMATION: Shortness of breath. COMPARISON: September 23, 2017. TECHNIQUE: An AP view of the chest is provided. FINDINGS: The cardiac silhouette is enlarged, though stable. Intact midline sternal wires are present. There are small bilateral pleural effusions identified with associated bibasilar airspace disease. There is also mild interstitial prominence throughout both lungs. The osseous structures are stable. 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 Bilateral pleural effusions with associated bibasilar airspace disease.
--- NOTE | 2017-09-30 11:11 | PN- Cardiology ---
Subjective Subjective: Feeling mostly well. No current shortness of breath. No chest pain. No palpitations. No lightheadedness or dizziness. No nausea or vomiting. The patient is diuresing well on his current diuretic regimen Objective Vital Signs and I&Os Vital Signs Date Time Temp Pulse Resp B/P B/P Pulse O2 O2 Flow FiO2 Mean Ox Delivery Rate 09/30 0816 62 140/70 09/30 0816 62 140/70 09/30 0800 97 Nasal 4.0L Cannula 09/30 0600 98.5 66 20 140/70 93 Nasal 4.0L Cannula 09/30 0510 92 09/30 0053 64 90 09/30 0000 CPAP 6.0L 09/29 2213 100 88 09/29 2150 99.9 61 20 150/70 09/29 2130 87 Nasal 3.0L Cannula 09/29 2052 66 160/80 09/29 1720 67 160/80 09/29 1424 99.8 67 20 160/80 91 Nasal Cannula 09/29 1330 66 158/62 Intake & Output 09/30 1600 09/30 0800 09/30 0000 09/29 1600 09/29 0800 09/29 0000 Intake Total 120 120 700 400 600 Output Total 401 170 8897 1400 1000 Balance -780 -580 -350 -1000 -400 Intake, Oral 120 120 700 400 600 Output, Urine 140 229 8728 1400 1000 Patient 307 lb 310 lb Weight Weight Bed scale Bed scale Measurement Method Physical Exam: General Appearance: well developed/nourished, alert, awake, oriented Head: normal HEENT: Normal Neck: supple, JVP normal, carotid upstrokes normal bilaterally, no masses or thyromegaly Respiratory: chest non-tender, clear to auscultation and percussion bilaterally Cardiovascular: regular rate/rhythm, normal S1, S2, 1-2/6 systolic murmur Abdomen: normal bowel sounds, soft, non-tender Extremities: normal inspection, 2+ edema Vascular: Pulses are 2+ and equal bilaterally Neurologic: Grossly normal/nonfocal Current Medications: Current Medications Sig/Jose Angel Start time Last Medication Dose Route Stop Time Status Admin Acetaminophen 1,000 MG Q6H 09/30 0900 AC N/A 1 UNIT IV 10/01 0314 Acetaminophen 650 MG Q4P PRN 09/27 1600 AC 09/28 PO 0638 Amlodipine Besylate 10 MG DAILY 09/24 0330 AC 09/30 PO 0816 Atorvastatin Calcium 40 MG 1700 09/24 1700 AC 09/29 PO 1719 Bumetanide 3 MG BID 09/25 2100 AC 09/30 IV 0827 Calcium Acetate 667 MG WM 09/24 1708 09/30 PO 0817 Epoetin Chu 15,000 UNITS ONCE A WEEK 09/26 1045 09/26 SC 1214 Fenofibrate 145 MG DAILY 09/24 0900 09/30 PO 0817 Ferric Sodium 125 MG Q48 09/27 1500 AC 09/29 Gluconate Complex IV 10/11 0959 1246 Sodium Chloride 100 ML Furosemide 20 MG ONCE ONE 09/30 0030 DC IV 09/30 0031 Heparin Sodium 5,000 UNIT Q8 09/24 0600 09/30 (Porcine) SC 0526 Hydralazine HCl 25 MG FOUR TIMES A DAY 09/24 0330 09/30 PO 0816 Hydromorphone HCl 2 MG ONCE ONE 09/30 0600 AZ 09/30 PO 09/30 0601 0617 Hydromorphone HCl 0.4 MG ONCE ONE 09/29 2030 DC 09/29 IV 09/29 Magnesium Oxide 400 MG BID 09/27 0900 09/30 PO 0816 Metaxalone 800 MG TID 09/24 0900 09/30 PO 0815 Metolazone 10 MG BID 09/27 2100 09/30 PO 0816 Metoprolol Tartrate 75 MG BID 09/24 0900 09/30 PO 0816 Prednisone 40 MG DAILY 09/29 1427 09/30 PO 0816 Sevelamer Carbonate 1,600 MG 09/24 1711 09/30 PO 0816 Sodium Bicarbonate 1,950 MG TID 09/26 1400 09/30 PO 0817 Sodium Hypochlorite 1 MEI BID 09/25 1100 09/29 TOP 0833 Tramadol HCl 50 MG ONCE ONE 09/29 1445 DC 09/29 PO 09/29 1446 1510 Trazodone HCl 100 MG QPM 09/27 2100 09/29 PO 2051 Results Last 48 Hrs of Labs/Mics: Laboratory Tests 09/30/17 0603: Anion Gap 14, Estimated GFR 11 L, BUN/Creatinine Ratio 10.4, CBC w Diff NO MAN DIFF REQ, RBC 3.28 L, MCV 92.4, MCH 30.0, MCHC 32.5 L, RDW 16.1 H, MPV 9.1, Gran % 86.6 H, Lymphocytes % 7.7 L, Monocytes % 5.7, Eosinophils % 0, Basophils % 0, Absolute Granulocytes 8.1 H, Absolute Lymphocytes 0.7 L, Absolute Monocytes 0.5, Absolute Eosinophils 0, Absolute Basophils 0 09/29/171914: ESR Westergren 59 H 09/29/17 0612: Anion Gap 12, Estimated GFR 11 L, BUN/Creatinine Ratio 10.4, Uric Acid 9.9 H, C-Reactive Prot, Quant > 9.0 H, CBC w Diff NO MAN DIFF REQ, RBC 3.17 L, MCV 91.6, MCH 29.7, MCHC 32.4 L, RDW 17.1 H, MPV 9.1, Gran % 76.6 H, Lymphocytes % 11.3 L, Monocytes % 11.9 H, Eosinophils % 0.1, Basophils % 0.1, Absolute Granulocytes 6.9 H, Absolute Lymphocytes 1.0 L, Absolute Monocytes 1.1 H, Absolute Eosinophils 0, Absolute Basophils 0 Assessment/Plan Assessment/Plan Assessment: 1. Acute on chronic HFpEF 2. History of coronary disease, status post bypass surgery 3. Diabetes 4. CKD 5. Normocytic anemia Recommendations: 1. Continue to follow nephrology recommendations 2. Continue Bumex and metolazone 3. Monitor input and output with daily weights 4. Check basic metabolic profile daily Continue telemetry? Yes
[2017-09-30 15:22] VITALS: BP 162/80
[2017-09-30 20:56] VITALS: BP 146/70
[2017-10-01 07:00] VITALS: BP 130/70
--- NOTE | 2017-10-01 07:08 | PN- Housestaff ---
Renard Zuniga 10/01/17 0708: Subjective Follow-up For: Acute on chronic HFpEF History of coronary disease, status post bypass surgery Diabetes CKD Normocytic anemia Tele-Events Since Last Visit: NSR, HR 53-56. No overnight tele events. Subjective: Mr Urban is doing well. He didnt have any worsening dyspnea, and vitals were stable overnight. He was afebrile overnight, and has been diuresing well. Urine output around 3L in the last 24 hrs. Review of Systems Constitutional: Reports: see HPI. Objective Last 24 Hrs of Vital Signs/I&O Vital Signs Date Time Temp Pulse Resp B/P B/P Pulse O2 O2 Flow FiO2 Mean Ox Delivery Rate 10/01 0700 97.5 54 20 130/70 94 Nasal Cannula 10/01 0317 55 10/01 0020 56 92 10/01 0000 Nasal 4.0L Cannula 09/30 2209 88 95 09/30 2056 97.5 61 17 146/70 94 Nasal 4.0L Cannula 09/30 2042 61 146/70 09/30 1731 62 162/80 09/30 1522 98.3 64 20 162/80 92 Nasal Cannula 09/30 1218 60 130/70 09/30 0816 62 140/70 09/30 0816 62 140/70 09/30 0800 97 Nasal 4.0L Cannula Intake & Output 10/01 0800 10/01 0000 09/30 1600 Intake Total 220 120 450 Output Total 800 450 700 Balance -580 -330 -250 Intake, IV 100 120 50 Intake, Oral 120 400 Number 1 1 Bowel Movements Output, Urine 800 450 700 Patient 304 lb Weight Weight Bed scale Measurement Method Physical Exam General Appearance: No Acute Distress Other Physical Findings: General Exam: AAOx3, mild distress, appears dyspneic while he was speaking, Skin: No rashes, no breakdown; HEENT: PERRLA, EOMI;Neck: Supple, No JVD; No cervical lymphadenopathy; CVS: Reg Rate, Normal S1,S2, No MGR; Resp: decreased air entry, no ronchi/rales;Abdomen: Soft, No tenderness, Normal Bowel Sounds; Neuro: Normal Speech, Strength 5/5 b/l x 4 extremities, Sensation intact, CN III -XII NL, Reflexes 2+; Extremities: No cyanosis, 2 + pedal edema, ? claire bandage on the left foot in place, and couldnt examine. Doesnt appear to have any discharge. Current Medications: Current Medications Sig/Jose Angel Start time Last Medication Dose Route Stop Time Status Admin Acetaminophen 1,000 MG Q6H 09/30 0900 DC 10/01 N/A 1 UNIT IV 10/01 0314 0441 Acetaminophen 650 MG Q4P PRN 09/27 1600 AC 09/28 PO 0638 Amlodipine Besylate 10 MG DAILY 09/24 0330 AC 09/30 PO 0816 Atorvastatin Calcium 40 MG 1700 09/24 1700 AC 09/30 PO 1731 Bumetanide 3 MG TID 09/30 1400 AC 09/30 IV 2120 Bumetanide 3 MG BID 09/25 2100 DC 09/30 IV 0827 Calcium Acetate 667 MG WM 09/24 1708 AC 09/30 PO 1730 Epoetin Chu 15,000 UNITS ONCE A WEEK 09/26 1045 09/26 SC 1214 Fenofibrate 145 MG DAILY 09/24 0900 09/30 PO 0817 Ferric Sodium 125 MG Q48 09/27 1500 AC 09/29 Gluconate Complex IV 10/11 0959 1246 Sodium Chloride 100 ML Heparin Sodium 5,000 UNIT Q8 09/24 0600 AC 10/01 (Porcine) SC 0438 Hydralazine HCl 25 MG FOUR TIMES A DAY 09/24 0330 AC 09/30 PO 2042 Magnesium Oxide 400 MG BID 09/27 0900 AC 09/30 PO 2041 Metaxalone 800 MG TID 09/24 0900 AC 09/30 PO 2041 Metolazone 10 MG BID 09/27 2100 AC 09/30 PO 2042 Metoprolol Tartrate 75 MG BID 09/24 0900 AC 09/30 PO 2042 Prednisone 40 MG DAILY 09/29 1427 AC 09/30 PO 0816 Sevelamer Carbonate 1,600 MG WM 09/24 1711 AC 09/30 PO 1730 Sodium Bicarbonate 1,950 MG TID 09/26 1400 AC 09/30 PO 2043 Sodium Hypochlorite 1 MEI BID 09/25 1100 AC 09/30 TOP 1732 Trazodone HCl 100 MG QPM 09/27 2100 AC 09/30 PO 2042 Last 24 Hrs of Lab/[place] Results Last 24 Hrs of Labs/Mics: Laboratory Tests 10/01/17 0605: Sodium Pending, Potassium Pending, Chloride Pending, Carbon Dioxide Pending, Anion Gap Pending, BUN Pending, Creatinine Pending, BUN/Creatinine Ratio Pending , Phosphorus Pending, Magnesium Pending Assessment/Plan Assessment: Mr Urban is a 80-year-old man w/ a PMHx of 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 Pertinent lab findings: WBC 9.4, hemoglobin 9.9, platelets 181 Sodium 141, potassium 4.4, bicarbonate 22, anion gap 12 BUN 57 (09/23/2017)-->63 (10/01/2017) Sr Cr 5.0 (09/23/2017)--> 5.5 (10/01/2017) Phos 7.3 (09/23/2017)--> 6.3 (10/01/2017) Mg 1.7 (09/23/2017)--> 2.0 (10/01/2017) ProBNP 08688 Troponin 0.01,0.01 Liver chemistries-AST 20, ALT 19, alkaline phosphatase 111, albumin 2.9 Urinalysis revealed urine protein greater than 100, ULE small, WBC 5-10 Below is the plan: 1. Stage IV/V CKD Good Urine output > 3L/day Epogen 15,000U weekly on ferrlecit 125mg IV every other day x8 doses Continue Phoslo currently on 3mg bumex and 10mg metolazone. Per nephro will continue methadone to 10 mg twice daily and increase bumex to 3mg TID target 3-4 L uop daily. If the patient does not have enough urine output, as per nephrology. Strict I/Os and daily weights, March placed 09/26/[address] Cancino avoid nephrotoxic meds 1300mg sodium bicarb QID 2. Acute on chronic HFpEF strict I/0s daily accurate weights continue metoprolol 3. Type 2 DM accuchecks continue ISS 4. Left heel non-healing ulcer/chest furuncle wound consult Surgery consulted, recomending heat application, will continue to monitor 5. Acute pseudo gout ortho has been consulted. on prednisone 40mg daily x 5 days. IV tylenol for pain control Call ortho if there is no significant improvement. DVT ppx sc heparin full code renal dialysis diet Problem List: 1. Diabetes 2. Anasarca Pain Ratin Pain Location: back Pain Goal: Pain 4 or less Pain Plan: tylenol prn Tomorrow's Labs & Rationales: cbc bep Rebecca Geiger 10/01/17 1037: Attending MD Review Statement Attending Statement Attending MD Statement: examined this patient, discuss w/resident/PA/MINE ENGINEERING SUPERINTENDENT, agreed w/resident/PA/MINE ENGINEERING SUPERINTENDENT, discussed with family, reviewed EMR data (avail), discussed with nursing, discussed with case mgmt, reviewed images, amended to note Attending Assessment/Plan: Patient seen/examined bedside. Vitals stable. Cr stable , Urine output negative around 3l. Oxygen supplementtion 4l nc. Trial to wean off oxygen but desaturates. Plan is to c/w iv diuretics and metazolone. Monitor I/O and follow nephrology. Left non healing ulcer present on admission - Wound care consulted, follow recommendations Knee pain likley pseudogout short course of steroids with some improvement. Encouraged to get out of bed to chair. uretheral stricture s/p cysto-march by urology, march care as per urology. Atelecatsis wit hypoxia. Incentive spirometry. PT evaluation for general physical deconditioning possible STR discharge. DM on low dose insulin , Monitor blood sugars, avoid hypoglycemia. DVT prophylaxis Patient's brother is his healthcare proxy if required. Patient is full code Discharge planning will be to resume patient care to his coupling machine operator at [facility] for peritoneal diallysis in near future. He has been taking peritoneal dialysis lessons as outpatient. Anticipate dc in next 24-48 hrs to STR on PO diuretics if ok with nephrology. lessons as outpatient. Anticipate dc in next 24-48 hrs to STR on PO diuretics if ok with nephrology.
[2017-10-01 08:42] VITALS: BP 140/70
[2017-10-01 10:26] VITALS: BP 160/60
--- NOTE | 2017-10-01 12:09 | PN- Nephrology ---
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 No chronic uremic symptoms to warrant dialysis initiation (although if unable to diurese on max dose diuretics, may need to start dialysis for that reason). Has decided on PD as HD modality. Follows with Dr. Pradhan. Fluid overload - Remains volume expanded. UOP dropped in the last day - if unable to diurese, may need to start dialysis. Hopefully will be better today - we can go up on the bumex to max dose of 4mg IV q8 + 10mg PO metolazone BID. Anemia - On weekly Epogen and IV iron replacement. Met acidosis - On 1300mg sodium bicarb QID - at goal. Hyperphos - Improving. Suggestion: -Cont bumex 3mg IV q8 + metolazone 10mg PO BID (give 30min prior to 2 of the bumex doses) - if UOP not >3L/day, would increase Bumex tomorrow to 4mg IV q8 in addition to metolazone 10mg BID as before -Target >3L/day of UOP -Daily standing weights -Epogen 15,000U weekly + ferrlecit 125mg IV every other day x8 doses -OK to cont sodium bicarb 1950mg TID -Cont phos binders If unable to diurese on above regimen, may need to start dialysis with an ESTEFANI cath - will know in the next few days Please call [phone] with ?'s Subjective Subjective: SCr 5.5 2L UOP on 3mg IV bumex q8 + 10mg PO metolazone BID Still feels swollen Objective Vital Signs and I&Os Vital Signs Date Time Temp Pulse Resp B/P B/P Pulse O2 O2 Flow FiO2 Mean Ox Delivery Rate 10/01 1045 Nasal 3.0L Cannula 10/01 1026 58 18 160/60 92 Nasal 3.0L Cannula 10/01 0842 58 140/70 10/01 0700 97.5 54 20 130/70 94 Nasal Cannula 10/01 0317 55 10/01 0020 56 92 10/01 0000 Nasal 4.0L Cannula 09/30 2209 88 95 09/306 97.5 61 17 146/70 94 Nasal 4.0L Cannula 09/30 2042 61 146/70 09/30 1731 62 162/80 09/30 1522 98.3 64 20 162/80 92 Nasal Cannula 09/30 1218 60 130/70 Intake & Output 10/01 1600 10/01 0400 09/30 1600 09/30 0400 09/29 1600 09/29 0400 Intake Total 220 120 902 468 0057 600 Output Total 741 814 3189 700 2450 1000 Balance -580 -330 -1030 -580 -1350 -400 Intake, IV 100 120 50 Intake, Oral 120 192 722 1508 600 Number 1 1 Bowel Movements Output, Urine 362 844 0764 700 2450 1000 Patient 304 lb 307 lb 310 lb Weight Weight Bed scale Bed scale Bed scale Measurement Method Physical Exam: Gen - mildly dyspneic HEENT - supple CV - RRR, no m/r/g Chest - clear, no w/r/r Abd - soft, NTND Ext - ++edema Neuro - AOX3, grossly nonfocal Current Medications: Current Medications Sig/Jose Angel Start time Last Medication Dose Route Stop Time Status Admin Acetaminophen 1,000 MG Q6H 09/30 0900 DC 10/01 N/A 1 UNIT IV 10/01 0314 0441 Acetaminophen 650 MG Q4P PRN 09/27 1600 AC 09/28 PO 0638 Amlodipine Besylate 10 MG DAILY 09/24 0330 AC 10/01 PO 1023 Atorvastatin Calcium 40 MG 1700 09/24 1700 AC 09/30 PO 1731 Bumetanide 3 MG TID 09/30 1400 AC 10/01 IV 0850 Calcium Acetate 667 MG WM 09/24 1708 AC 10/01 PO 0848 Epoetin Chu 15,000 UNITS ONCE A WEEK 09/26 1045 AC 09/26 IA 1214 Fenofibrate 145 MG DAILY 09/24 0900 AC 10/01 PO 1023 Ferric Sodium 125 MG Q48 09/27 1500 AC 10/01 Gluconate Complex IV 10/11 0959 0856 Sodium Chloride 100 ML Heparin Sodium 5,000 UNIT Q8 09/24 0600 AC 10/01 (Porcine) SC 0438 Hydralazine HCl 25 MG FOUR TIMES A DAY 09/24 0330 AC 10/01 PO 1023 Insulin Aspart 0 TIDAC 10/01 1200 AC SC Magnesium Oxide 400 MG BID 09/27 0900 AC 10/01 PO 1023 Metaxalone 800 MG TID 09/24 0900 AC 10/01 PO 1024 Metolazone 10 MG BID 09/27 2100 AC 10/01 PO 1022 Metoprolol Tartrate 75 MG BID 09/24 0900 AC 10/01 PO 1023 Prednisone 40 MG DAILY 09/29 1427 AC 10/01 PO 1023 Sevelamer Carbonate 1,600 MG WM 09/24 1711 AC 10/01 PO 0848 Sodium Bicarbonate 1,950 MG TID 09/26 1400 AC 10/01 PO 1023 Sodium Hypochlorite 1 MEI BID 09/25 1100 AC 09/30 TOP 1732 Tramadol HCl 50 MG Q8P PRN 10/01 1045 AC PO Trazodone HCl 100 MG QPM 09/27 2100 AC 09/30 PO 2042 Results Pertinent Lab Results: Laboratory Tests 10/01 09/30 09/29 06 0603 1915 Chemistry Sodium (137 - 145 mmol/L) 141 141 Potassium (3.5 - 5.1 mmol/L) 4.4 4.5 Chloride (98 - 107 mmol/L) 107 107 Carbon Dioxide (22 - 30 mmol/L) 22 20 L Anion Gap (5 - 16) 12 14 BUN (9 - 20 mg/dL) 63 H 56 H Creatinine (0.7 - 1.2 mg/dL) 5.5 *H 5.4 *H Estimated GFR (>60 ml/min) 11 L 11 L BUN/Creatinine Ratio (7 - 25 %) 11.5 10.4 Phosphorus (2.5 - 4.5 mg/dL) 6.3 H Magnesium (1.6 - 2.3 mg/dL) 2.0 Hematology CBC w Diff NO MAN DIFF REQ WBC (4.8 - 10.8 /CUMM) 9.4 RBC (4.70 - 6.10 /CUMM) 3.28 L Hgb (14.0 - 18.0 G/DL) 9.9 L Hct (42 - 52 %) 30.3 L MCV (80.0 - 94.0 FL) 92.4 MCH (27.0 - 31.0 PG) 30.0 MCHC (33.0 - 37.0 G/DL) 32.5 L RDW (11.5 - 14.5 %) 16.1 H Plt Count (130 - 400 /CUMM) 181 MPV (7.4 - 10.4 FL) 9.1 Gran % (42.2 - 75.2 %) 86.6 H Lymphocytes % (20.5 - 51.1 %) 7.7 L Monocytes % (1.7 - 9.3 %) 5.7 Eosinophils % (0 - 5 %) 0 Basophils % (0.0 - 2.0 %) 0 Absolute Granulocytes (1.4 - 6.5 /CUMM) 8.1 H Absolute Lymphocytes (1.2 - 3.4 /CUMM) 0.7 L Absolute Monocytes (0.10 - 0.60 /CUMM) 0.5 Absolute Eosinophils (0.0 - 0.7 /CUMM) 0 Absolute Basophils (0.0 - 0.2 /CUMM) 0 ESR Westergren (0 - 10 MM) 59 H 09/29 0612 Chemistry Sodium (137 - 145 mmol/L) 143 Potassium (3.5 - 5.1 mmol/L) 4.2 Chloride (98 - 107 mmol/L) 111 H Carbon Dioxide (22 - 30 mmol/L) 20 L Anion Gap (5 - 16) 12 BUN (9 - 20 mg/dL) 55 H Creatinine (0.7 - 1.2 mg/dL) 5.3 *H Estimated GFR (>60 ml/min) 11 L BUN/Creatinine Ratio (7 - 25 %) 10.4 Uric Acid (3.5 - 8.5 mg/dL) 9.9 H C-Reactive Prot, Quant (<1.0 mg/dL) > 9.0 H Hematology CBC w Diff NO MAN DIFF REQ WBC (4.8 - 10.8 /CUMM) 8.9 RBC (4.70 - 6.10 /CUMM) 3.17 L Hgb (14.0 - 18.0 G/DL) 9.4 L Hct (42 - 52 %) 29.0 L MCV (80.0 - 94.0 FL) 91.6 MCH (27.0 - 31.0 PG) 29.7 MCHC (33.0 - 37.0 G/DL) 32.4 L RDW (11.5 - 14.5 %) 17.1 H Plt Count (130 - 400 /CUMM) 182 MPV (7.4 - 10.4 FL) 9.1 Gran % (42.2 - 75.2 %) 76.6 H Lymphocytes % (20.5 - 51.1 %) 11.3 L Monocytes % (1.7 - 9.3 %) 11.9 H Eosinophils % (0 - 5 %) 0.1 Basophils % (0.0 - 2.0 %) 0.1 Absolute Granulocytes (1.4 - 6.5 /CUMM) 6.9 H Absolute Lymphocytes (1.2 - 3.4 /CUMM) 1.0 L Absolute Monocytes (0.10 - 0.60 /CUMM) 1.1 H Absolute Eosinophils (0.0 - 0.7 /CUMM) 0 Absolute Basophils (0.0 - 0.2 /CUMM) 0 Imaging/Other Studies: Chest X-ray 09/29 EXAM TYPE: RAD - XRY-PORTABLE CHEST XRAY EXAMINATION: CHEST 1 VIEW CLINICAL INFORMATION: Shortness of breath. COMPARISON: September 23, 2017. TECHNIQUE: An AP view of the chest is provided. FINDINGS: The cardiac silhouette is enlarged, though stable. Intact midline sternal wires are present. There are small bilateral pleural effusions identified with associated bibasilar airspace disease. There is also mild interstitial prominence throughout both lungs. The osseous structures are stable. IMPRESSION: Stable cardiomegaly with mild interstitial prominence likely patient admitting representative of mild vascular congestion. Bilateral pleural effusions with associated bibasilar airspace disease.
--- NOTE | 2017-10-01 13:04 | PN- Cardiology ---
Subjective Subjective: Feeling mostly well. No current shortness of breath. No chest pain. No palpitations. No lightheadedness or dizziness. No nausea or vomiting. The patient is diuresing reasonably well on his current diuretic regimen Objective Vital Signs and I&Os Vital Signs Date Time Temp Pulse Resp B/P B/P Pulse O2 O2 Flow FiO2 Mean Ox Delivery Rate 10/01 1045 Nasal 3.0L Cannula 10/01 1026 58 18 160/60 92 Nasal 3.0L Cannula 10/01 0842 58 140/70 10/01 0700 97.5 54 20 130/70 94 Nasal Cannula 10/01 0317 55 10/01 0020 56 92 10/01 0000 Nasal 4.0L Cannula 09/30 2209 88 95 09/30 2056 97.5 61 17 146/70 94 Nasal 4.0L Cannula 09/30 2042 61 146/70 09/30 1731 62 162/80 09/30 1522 98.3 64 20 162/80 92 Nasal Cannula Intake & Output 10/01 1600 10/01 0800 10/01 0000 09/30 1600 09/30 0800 09/30 0000 Intake Total 220 120 450 120 120 Output Total 800 450 700 900 700 Balance -580 -330 -250 -780 -580 Intake, IV 100 120 50 Intake, Oral 120 400 120 120 Number 1 1 Bowel Movements Output, Urine 800 450 700 900 700 Patient 304 lb 307 lb Weight Weight Bed scale Bed scale Measurement Method Physical Exam: General Appearance: well developed/nourished, alert, awake, oriented Head: normal HEENT: Normal Neck: supple, JVP normal, carotid upstrokes normal bilaterally, no masses or thyromegaly Respiratory: chest non-tender, clear to auscultation and percussion bilaterally Cardiovascular: regular rate/rhythm, normal S1, S2, 1-2/6 systolic murmur Abdomen: normal bowel sounds, soft, non-tender Extremities: normal inspection, 2+ edema Vascular: Pulses are 2+ and equal bilaterally Neurologic: Grossly normal/nonfocal Current Medications: Current Medications Sig/Jose Angel Start time Last Medication Dose Route Stop Time Status Admin Acetaminophen 1,000 MG Q6H 09/30 0900 DC 10/01 N/A 1 UNIT IV 10/01 0314 0441 Acetaminophen 650 MG Q4P PRN 09/27 1600 AC 09/28 PO 0638 Amlodipine Besylate 10 MG DAILY 09/24 0330 AC 10/01 PO 1023 Atorvastatin Calcium 40 MG 1700 09/24 1700 AC 09/30 PO 1731 Bumetanide 3 MG TID 09/30 1400 AC 10/01 IV 0850 Calcium Acetate 667 MG WM 09/24 1708 AC 10/01 PO 1216 Epoetin Chu 15,000 UNITS ONCE A WEEK 09/26 1045 AC 09/26 SC 1214 Fenofibrate 145 MG DAILY 09/24 0900 AC 10/01 PO 1023 Ferric Sodium 125 MG Q48 09/27 1500 AC 10/01 Gluconate Complex IV 10/11 0959 0856 Sodium Chloride 100 ML Heparin Sodium 5,000 UNIT Q8 09/24 0600 AC 10/01 (Porcine) SC 0438 Hydralazine HCl 25 MG FOUR TIMES A DAY 09/24 0330 10/01 PO 1023 Insulin Aspart 0 TIDAC 10/01 1200 AC 10/01 SC 1216 Magnesium Oxide 400 MG BID 09/27 0900 AC 10/01 PO 1023 Metaxalone 800 MG TID 09/24 0900 10/01 PO 1024 Metolazone 10 MG BID 09/27 2100 AC 10/01 PO 1022 Metoprolol Tartrate 75 MG BID 09/24 0900 AC 10/01 PO 1023 Prednisone 40 MG DAILY 09/29 1427 AC 10/01 PO 1023 Sevelamer Carbonate 1,600 MG WM 09/24 1711 AC 10/01 PO 1216 Sodium Bicarbonate 1,950 MG TID 09/26 1400 AC 10/01 PO 1023 Sodium Hypochlorite 1 MEI BID 09/25 1100 AC 09/30 TOP 1732 Tramadol HCl 50 MG Q8P PRN 10/01 1045 10/01 PO 1215 Trazodone HCl 100 MG QPM 09/27 2100 AC 09/30 PO 2042 Results Last 48 Hrs of Labs/Mics: Laboratory Tests 10/01/17 0605: Anion Gap 12, Estimated GFR 11 L, BUN/Creatinine Ratio 11.5, Phosphorus 6.3 H, Magnesium 2.0 09/30/17 0603: Anion Gap 14, Estimated GFR 11 L, BUN/Creatinine Ratio 10.4, CBC w Diff NO MAN DIFF REQ, RBC 3.28 L, MCV 92.4, MCH 30.0, MCHC 32.5 L, RDW 16.1 H, MPV 9.1, Gran % 86.6 H, Lymphocytes % 7.7 L, Monocytes % 5.7, Eosinophils % 0, Basophils % 0, Absolute Granulocytes 8.1 H, Absolute Lymphocytes 0.7 L, Absolute Monocytes 0.5, Absolute Eosinophils 0, Absolute Basophils 0 09/29/171914: ESR Westergren 59 H Assessment/Plan Assessment/Plan Assessment: 1. Acute on chronic HFpEF 2. History of coronary disease, status post bypass surgery 3. Diabetes 4. CKD 5. Normocytic anemia Recommendations: 1. Continue to follow nephrology recommendations 2. Continue Bumex and metolazone 3. Monitor input and output with daily weights 4. Check basic metabolic profile daily Continue telemetry? Yes
--- NOTE | 2017-10-01 14:37 | Discharge Summary ---
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 monthly, hypertension, coronary artery disease status post CABG (2005), sleep apnea on nocturnal CPAP, nonhealing left heel ulcer with history of osteomyelitis, admitted to [facility] on 09/24/17 for approximately 20 pounds of weight gain over a week and a half prior to presentation. At the time of admission-temperature 98.0, pulse rate 52, respiration 20, blood pressure 171/76, pulse ox 91% on 2 L. Pertinent lab findings: WBC 7.1 (09/23/2017)-->8.8 (10/08/2017) Hemoglobin 11.0(09/23/2017)--> 10.1 (10/08/2017) Platelet count 346(09/23/2017)--> 176 (10/08/2017) Electrolytes: Sodium 142(09/23/2017)--> 142 (10/08/2017) Potassium 4.8(09/23/2017)--> 3.4 (10/08/2017) Chloride 116(09/23/2017)--> 103 (10/08/2017) BUN 57(09/23/2017)--> 77 (10/08/2017) Creatinine 5.0(09/23/2017)--> 5.7 (10/08/2017), peak 6.0. Magnesium 1.7(09/23/2017)--> 2.4 (10/08/2017) Alkaline phosphatase 111, calcium 8.3, albumin 2.9; corrected calcium 9.1 INR 1.24, d-dimer 806 Urinalysis revealed 5-10 WBCs, small leukocyte esterase urine protein greater than 100. Microbiology-urine culture revealed growth of Klebsiella pneumonia (detailed report below). CT abdomen and pelvis notable for bilateral pleural effusions, moderate amount of ascites. Kidneys noted to be atrophic bilaterally with no hydronephrosis. ( Detailed report below) He was admitted to telemetry floor, and was aggressively treated for volume overload likely secondary to chronic kidney disease. 1. Stage IV/V CKD Since he did not have any acute uremic symptoms were noted to warrant dialysis initiation, but given volume overload that was evident on clinical exam and radiological findings it was thought prudent to aggressively diurese. He was initially started on bumetanide and metolazone, with the goal to diurese approximately 4 L per day. This combination was later changed to intravenous furosemide 120 mg 3 times a day+SPA, along with metolazone 10 mg twice prior to administration of furosemide, since he did not diurese adequately on previous combination. After being diuresed for over a week, he was changed to p.o. furosemide twice daily. Hemodynamics were stable, and electrolytes were monitored closely. He continued to require supplemental oxygen, that likely was from fluid overload, which was being tapered down as he tolerated. Ball[employer] Pen [employer] Machine Operator Dr. Balderas, Dr. Samson were consulted for advice. Given his adequate diuresis , dialysis was deferred for a later time. As per the patient's wishes, plan was to prepare him for peritoneal dialysis in the future.He was continued Phoslo daily and Epogen 15,000U weekly. He has apparently decided on PD as HD modality. He was also continued on sodium bicarbonate. He continued to require supplemental oxygen which should be tapered down in the future. Anemia of Chronic Disease: Hg was 11.0 on admission. Iron, TIBC and ferritin were with in normal limits. He was started on Ferrilicit 125mg IV every other day for a total of 8 doses, and continued on Neupogen 15,000 units weekly. Obstructive uropathy: Aranda catheter placed 09/26/[address] Cancino, which was later removed on 10/08/2017 as per his instructions. Acute on chronic HFpEF/[place]: [place] [address], likely secondary to volume overload. An echocardiogram was done that revealed ejection fraction of greater than 60, with right ventricular systolic pressure around 52. Continued on metoprolol,hydralazine, and amlodipine for blood pressure control. Blood pressure stayed slightly elevated in the range of systolic 140-150s during the stay in the hospital. Type 2 DM: His fingersticks remained well controlled on ISS, and was to be discharged on insulin sliding scale. Left heel non-healing ulcer: Wound care service was consulted, who recommended quarter strength Dakin moistened gauze placed into the wound twice daily. Further treatment was to be done Madai for ongoing management. He also had a local area of likely abscess on the anterior chest wall for which surgery was consulted who recommended conservative management. He did not develop any systemic signs of infection. Recommendation was to offload lower extremity. Acute pseudo gout: He complained of right knee swelling. Knee xray showed arge suprapatellar knee joint effusion, chondrocalcinosis and mild osteoarthritic changes in the right knee. Orthopedic surgeon was consulted, and given low suspcion for septic joint, he was treated with short course of prednisone 40 mg daily. He required tramadol and Tylenol for pain control. He prefer to stay in the bed for the most part of the day, and worked with physical therapy to move around occasionally. Also, imaging showed inguinal lymphadenopathy, pathologically enlarged by short axis size criteria on the left. This is nonspecific, presumably reactive but metastatic lymphadenopathy could be considered if the patient has a known primary malignancy. Will be needed to be followed up in outpatient setting. Consults: #1 nephrology-Dr. Balderas, Dr. Villagran #2 cardiology-Dr. Barrientos #3 urology-Dr. Cancino #4 wound care-Dr. Nathan Follow up: 1. Please discuss with your hoe worker or PCP regarding Aspirin medication to be started given history of hear disease. 2. Please work with physical therapy to avoid deconditioning\ 3. Please titrate off oxygen as tolerated. Allergies: Coded Allergies: baclofen (LOSE EYESIGHT AND MOTOR SKILLS PER PT 09/23/17) ciprofloxacin (From CIPRO) (FEVER PT PT 09/23/17) lisinopril (COUGH PER PT 09/23/17) Pertinent Lab Results: CAT - CT ABD & PELVIS W/O IV CONTRAS; CT CHEST WO IV CONTRAST 09/23/17-2212 Bilateral pleural effusions, moderate volume of ascites, and anasarca suggesting volume overload. The kidneys are atrophic. There is left lower lobe consolidation with air bronchograms. This is atleast in part compressive atelectasis from the left pleural effusion butsuperimposed aspiration or pneumonia are possible as well. There is inguinal lymphadenopathy, pathologically enlarged by short axis sizecriteria on the left. This is nonspecific, presumably reactive but metastaticlymphadenopathy could be considered if the patient has a known primarymalignancy. Evidence of prior granulomatous disease. CARD - ECHOCARDIOGRAM 09/25/17-08 Mild left ventricular dilatation. Mild concentric left ventricular hypertrophy. Normal left ventricular ejection fraction visually estimated at >60 Mild left atrial dilatation. Trace mitral regurgitation. Trace aortic regurgitation. Mild tricuspid regurgitation. Mild pulmonic regurgitation. Right ventricular systolic pressure estimated to be elevated at 52 mmHg. RAD - XRY-KNEE, RIGHT 09/29/17- 1. Large suprapatellar knee joint effusion. 2. Chondrocalcinosis and mild osteoarthritic changes in the right knee. XRY-PORTABLE CHEST XRAY 09/29/17-2242 Stable cardiomegaly with mild interstitial prominence likely field service representative of mild vascular congestion. Bilateral pleural effusions with associatedbibasilar airspace disease. XRY-CHEST XRAY, TWO VIEWS 10/07/17- 1. Cardiomegaly and central pulmonary vascular congestion without pulmonary edema. 2. Pleural effusions appear decreased compared to . 3. The aeration of the retrocardiac region of left lower lobe has improved. The residual opacity probably represents a combination of the pleural effusion and compressive atelectasis. US-UNILATERAL VENOUS DOPPLER 10/07/17- Normal right lower extremity venous study. No evidence of DVT. There is edema noted right lateral upper arm distally. > URINE CULTURE Final 09/27/17-1229 Greater than 100,000 colonies per ml of: KLEBSIELLA PNEUMONIAE 1. KLEBSIELLA PNEUMONIAE RX AB ------ -- AMPICILLIN R CEFAZOLIN S AMOXICILLIN/CLAVULINIC ACID S AMPICILLIN/SULBACTAM R CIPROFLOXACIN S GENTAMICIN S NITROFURANTOIN S TRIMETHOPRIM/SULFAMETHOXAZOLE S Disposition Summary Disposition Principal Diagnosis: Volume overload from CKD Additional Diagnosis: Diabetes type 2 w/ nephropathy Discharge Disposition: SNF Discharge Instructions General Discharge Information Code Status: Full Code Patient's Diet: renal dialysis diet Patient's Activity: as tolerated Follow-Up Instructions/Appts: -Please see your primary care provider within a week of discharge -Please see your hoe worker within a week of discharge -Please follow up with your brood hatchery manager within a week of discharge. -Please take your medications as prescribed. Medications at Discharge Discharge Medications: Stop taking the following medications: Metoprolol Tartrate (Metoprolol Tartrate) 25 MG TABLET ORAL TWICE DAILY Qty = 180 Hydralazine HCl (Hydralazine HCl) 50 MG TABLET ORAL 4 TIMES A DAY Qty = 90 Sodium Bicarbonate (Sodium Bicarbonate) 650 MG TABLET ORAL TWICE DAILY Qty = 540 Bumetanide (Bumetanide) 2 MG TABLET ORAL TWICE DAILY Qty = 180 Continue taking these medications: Patiromer Calcium Sorbitex (Veltassa) 16.8 GRAM POWD.PACK 1 PKG ORAL DAILY Qty = 60 Metaxalone (Metaxalone) 800 MG TABLET 1 Tablet ORAL THREE TIMES DAILY Qty = 90 Comments: Last Taken:10/09/17 Time:0900 Atorvastatin Calcium (Atorvastatin Calcium) 40 MG TABLET 1 Tablet ORAL DAILY Qty = 90 Comments: Last Taken:10/08/17 Time:1700 Amlodipine Besylate (Amlodipine Besylate) 10 MG TABLET 1 Tablet ORAL DAILY Qty = 90 Comments: Last Taken:10/09/17 Time:0900 Sevelamer Carbonate (Renvela) 800 MG TABLET 2 Tablet ORAL THREE TIMES DAILY Qty = 180 Comments: Last Taken:10/09/17 Time:1130 Calcium Acetate (Calcium Acetate) 667 MG CAPSULE 1 Capsule ORAL THREE TIMES DAILY Qty = 90 Comments: Last Taken:10/09/17 Time:1130 Fenofibrate Nanocrystallized (Fenofibrate) 145 MG TABLET 1 Tablet ORAL DAILY Qty = 90 Comments: Last Taken:10/09/17 Time:0900 Acetaminophen (Tylenol Extra Strength) 500 MG TABLET 1 Tablet ORAL EVERY SIX HOURS as needed for KNEE PAIN Qty = 90 Comments: Last Taken:10/09/17 Time:0900 Trazodone HCl (Trazodone HCl) 100 MG TABLET 1 Tablet ORAL Every night Qty = 30 Start taking the following new medications: Insulin Aspart (Novolog) 100 UNIT/ML VIAL 0 Units Inject into fatty tissue 3 TIMES DAILY BEFORE MEALS Qty = 1 No Refills Instructions: BEFORE MEALS Blood Insulin Sugar Units <80 0 81-100 0 101-200 1 201-250 2 251-300 3 301-350 4 351-400 6 >400 Call Doctor Comments: Last Taken:10/08/17 Time:1700 Furosemide (Lasix) 40 MG TABLET 120 Milligram ORAL DAILY Qty = 30 Refills = 2 Comments: Last Taken:10/09/17 Time:0900 Epoetin Chu (Procrit) 20,000 UNIT/ML VIAL 15,000 Units Inject into fatty tissue ONCE A WEEK Qty = 4 No Refills Instructions: Please coordinate with brood hatchery manager regarding your weekly dosing. Hydralazine HCl (Hydralazine HCl) 50 MG TABLET 50 Milligram ORAL 0600,1200,1800,2300 Qty = 90 Refills = 2 Comments: Last Taken:10/09/17 Time:1149 Metoprolol Tartrate (Metoprolol Tartrate) 50 MG TABLET 50 Milligram ORAL TWICE DAILY Qty = 30 Refills = 2 Comments: Last Taken:10/09/17 Time:0900 Sodium Bicarbonate (Sodium Bicarbonate) 325 MG TABLET 1,950 Milligram ORAL THREE TIMES DAILY Qty = 90 Refills = 2 Comments: Last Taken:10/09/17 Time:0900 Copies To: Low CASEY,Clyde Gupta Attending Review Statement Documenting Attending: Rebecca Geiger MD
[2017-10-01 14:47] VITALS: BP 148/64
[2017-10-01 22:17] VITALS: BP 142/78
--- NOTE | 2017-10-02 06:02 | PN- Housestaff ---
Renard Zuniga 10/02/17 0602: Subjective Follow-up For: Acute on chronic HFpEF History of coronary disease, status post bypass surgery Diabetes CKD Normocytic anemia Complaints: no complaints Tele-Events Since Last Visit: NSR, SB HR 51-57. Multiple PACs. He has been having urine output upto 4L in the last 24 hrs. Subjective: Mr Urban feels well. No new complaints. Stated that he sat up in the bed yesterday, and walked around in the room with no difficulty. He doesnt feel dyspneic, and didnt have any chest pain or palpitations. Vitals remained stable overnight. Oxygen saturation 94-96%. Review of Systems Constitutional: Reports: see HPI. Objective Last 24 Hrs of Vital Signs/I&O Vital Signs Date Time Temp Pulse Resp B/P B/P Pulse O2 O2 Flow FiO2 Mean Ox Delivery Rate 10/02 0314 56 10/02 0014 56 92 10/02 0000 CPAP 3.0L 10/01 2224 60 156/78 10/01 2217 99.0 60 16 142/78 90 Nasal 3.0L Cannula 10/01 1802 63 156/80 10/01 1600 Nasal 3.0L Cannula 10/01 1447 98.0 58 20 148/64 93 Nasal 3.0L Cannula 10/01 1407 58 148/64 10/01 1045 Nasal 3.0L Cannula 10/01 1026 58 18 160/60 92 Nasal 3.0L Cannula 10/01 0842 58 140/70 10/01 0700 97.5 54 20 130/70 94 Nasal Cannula Intake & Output 10/02 0800 10/02 0000 10/01 1600 Intake Total 555 Output Total 750 600 Balance -750 -45 Intake, IV 155 Intake, Oral 400 Number 1 Bowel Movements Output, Urine 750 600 Patient 302 lb Weight Physical Exam General Appearance: No Acute Distress Other Physical Findings: General Exam: AAOx3, mild distress, appears dyspneic while he was speaking, Skin: No rashes, no breakdown; HEENT: PERRLA, EOMI;Neck: Supple, No JVD; No cervical lymphadenopathy; CVS: Reg Rate, Normal S1,S2, No MGR; Resp: decreased air entry, no ronchi/rales;Abdomen: Soft, No tenderness, Normal Bowel Sounds; Neuro: Normal Speech, Strength 5/5 b/l x 4 extremities, Sensation intact, CN III -XII NL, Reflexes 2+; Extremities: No cyanosis, 2 + pedal edema, ? claire bandage on the left foot in place, and couldnt examine; bandage is changed three days every week. Doesnt appear to have any discharge. Current Medications: Current Medications Sig/Jose Angel Start time Last Medication Dose Route Stop Time Status Admin Acetaminophen 1,000 MG ONCE ONE 10/01 2245 DC 10/02 N/A 1 UNIT IV 10/01 2259 0103 Acetaminophen 1,000 MG ONCE ONE 10/01 1700 DC 10/01 N/A 1 UNIT IV 10/01 1714 1800 Acetaminophen 650 MG Q4P PRN 09/27 1600 AC 09/28 PO 0638 Amlodipine Besylate 10 MG DAILY 09/24 0330 10/01 PO 1023 Atorvastatin Calcium 40 MG 1700 09/24 1700 10/01 PO 1643 Bumetanide 3 MG TID 09/30 1400 10/01 IV 2259 Calcium Acetate 667 MG WM 09/24 1708 10/01 PO 1643 Epoetin Chu 15,000 UNITS ONCE A WEEK 09/26 1045 09/26 DC 1214 Fenofibrate 145 MG DAILY 09/24 0900 10/01 PO 1023 Ferric Sodium 125 MG Q48 09/27 1500 AC 10/01 Gluconate Complex IV 10/11 0959 0856 Sodium Chloride 100 ML Heparin Sodium 5,000 UNIT Q8 09/24 0600 10/01 (Porcine) SC 2221 Hydralazine HCl 25 MG FOUR TIMES A DAY 09/24 0330 10/01 PO 2224 Insulin Aspart 0 TIDAC 10/01 1200 10/01 SC 1644 Magnesium Oxide 400 MG BID 09/27 0900 10/01 PO 2221 Metaxalone 800 MG TID 09/24 0900 10/01 PO 2220 Metolazone 10 MG BID 09/27 2100 AC 10/01 PO 2221 Metoprolol Tartrate 75 MG BID 09/24 0900 10/01 PO 2220 Prednisone 40 MG DAILY 09/29 1427 10/01 PO 1023 Sevelamer Carbonate 1,600 MG WM 09/24 1711 10/01 PO 1643 Sodium Bicarbonate 1,950 MG TID 09/26 1400 10/01 PO 2220 Sodium Hypochlorite 1 MEI BID 09/25 1100 09/30 TOP 1732 Tramadol HCl 50 MG Q8P PRN 10/01 1045 AC 10/01 PO 1215 Trazodone HCl 100 MG QPM 09/27 2100 AC 10/01 PO 2222 Last 24 Hrs of Lab/[place] Results Last 24 Hrs of Labs/Mics: Laboratory Tests 10/02/17 0610: Anion Gap 12, Estimated GFR 11 L, BUN/Creatinine Ratio 13.4, Phosphorus 5.6 H, Magnesium 2.2, CBC w Diff NO MAN DIFF REQ, RBC 3.42 L, MCV 91.1, MCH 29.6, MCHC 32.6 L, RDW 17.2 H, MPV 8.7, Gran % 75.0, Lymphocytes % 14.8 L, Monocytes % 9.9 H, Eosinophils % 0, Basophils % 0.3, Absolute Granulocytes 4.8, Absolute Lymphocytes 0.9 L, Absolute Monocytes 0.6, Absolute Eosinophils 0, Absolute Basophils 0 Assessment/Plan Assessment: Mr Urban is a 80-year-old man w/ a PMHx of 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 Pertinent lab findings: WBC 9.4, hemoglobin 9.9, platelets 181 Sodium 141, potassium 4.4, bicarbonate 22, anion gap 12 BUN 57 (09/23/2017)-->63 (10/01/2017)-->71(10/02/2017) Sr Cr 5.0 (09/23/2017)--> 5.5 (10/01/2017)-->5.3(10/02/2017) Phos 7.3 (09/23/2017)--> 6.3 (10/01/2017) Mg 1.7 (09/23/2017)--> 2.0 (10/01/2017) ProBNP 57142 Troponin 0.01,0.01 Liver chemistries-AST 20, ALT 19, alkaline phosphatase 111, albumin 2.9 Urinalysis revealed urine protein greater than 100, ULE small, WBC 5-10. Etiology in his case is likely diabetic nephropathy, and other causes such as obesity induced FSG or obstructive nephropathy. He is clearly in volume overload , and unsure if the pt couldnt diurese in the past on his current diuretics/ diuretic resistance. Serum creatinine is stable at this time, and would have to continue diuresis with up to 4 L per day of fluid. If unable to diurese adequately, would have to start hemodialysis. Urine output in the last 24 hrs: 800+600+750+800 ~ 3L. No labs in the last 24 hrs. Below is the plan: 1. Stage IV/V CKD- Continue aggressive diuresis using metolazone and bumetanide. Currently on iv 3mg bumex and 10mg metolazone, and would increase the dose of Bumex to 4mg iv q8 , and add metolazone 10 mg BID. Usually iv:po is 1:1 on bumex, and would discuss w/ Dr. Das, if we could change bumex to po. Informed the nursing staff to make sure that Metolazone to be given 30 min prior to Bumex for synergism. Continue Epogen 15,000U weekly Continue Ferrlecit 125mg IV every other day x8 doses Continue Phoslo Strict I/Os and daily weights. Aranda placed 09/26/[address] Cancino. Await recs from Dr. Cancino, if it needs to be removed or if he would follow up as an outpatient. avoid nephrotoxic meds 1300mg sodium bicarb QID 2. Acute on chronic HFpEF strict I/0s daily accurate weights continue metoprolol 3. Type 2 DM accuchecks continue ISS 4. Left heel non-healing ulcer/chest furuncle wound consult. Change dressing every third day. Surgery consulted, recomending heat application, will continue to monitor. 5. Acute pseudo gout ortho has been consulted. on prednisone 40mg daily x 5 days. Day 4. IV tylenol for pain control. DVT ppx sc heparin full code renal dialysis diet Problem List: 1. Diabetes 2. Bilateral pleural effusion Pain Ratin Pain Location: left knee Pain Goal: Pain 4 or less Pain Plan: tylenol prn Tomorrow's Labs & Rationales: cbc- rule out infection bep- pt on high dose diuretics. Rebecca Geiger 10/02/17 1051: Attending MD Review Statement Attending Statement Attending MD Statement: examined this patient, discuss w/resident/PA/DYE OPERATOR, agreed w/resident/PA/DYE OPERATOR, discussed with family, reviewed EMR data (avail), discussed with nursing, discussed with case mgmt, reviewed images, amended to note Attending Assessment/Plan: Patient seen/examend bedside. Negative balance around 3-4 l. OOB to chair. Nephrology following, diuretics as per nephrology. Cont current care. PT eval for STR placement. Dialysis plan as per nephrology.
[2017-10-02 06:16] VITALS: BP 158/68
[2017-10-02 07:53] LABS: ABSOLUTE BASOPHIL COUNT 0 /CUMM (0.0-0.2); ABSOLUTE EOSINOPHIL COUNT 0 /CUMM (0.0-0.7); ABSOLUTE GRANULOCYTE CT 4.8 /CUMM (1.4-6.5); ABSOLUTE LYMPH COUNT 0.9 /CUMM (1.2-3.4); ABSOLUTE MONOCYTE COUNT 0.6 /CUMM (0.10-0.60); BASOPHIL % 0.3 % (0.0-2.0); EOSINOPHIL % 0 % (0-5); HEMATOCRIT 31.1 % (42-52); MEAN CORPUSCULAR HGB 29.6 PG (27.0-31.0); MEAN CORPUSCULAR HGB CONC 32.6 G/DL (33.0-37.0); MEAN CORPUSCULAR VOLUME 91.1 FL (80.0-94.0); MEAN PLATELET VOLUME 8.7 FL (7.4-10.4); PLATELET COUNT 204 /CUMM (130-400); RBC DISTRIBUTION WIDTH 17.2 % (11.5-14.5); RED BLOOD CELL CT 3.42 /CUMM (4.70-6.10); WHITE BLOOD CELL COUNT 6.4 /CUMM (4.8-10.8)
--- NOTE | 2017-10-02 11:08 | PN- Cardiology ---
Subjective Subjective: The patient continues to be about the same. No new issues or symptoms. Respiratory status stable. Diuresing well. Objective Vital Signs and I&Os Vital Signs Date Time Temp Pulse Resp B/P B/P Pulse O2 O2 Flow FiO2 Mean Ox Delivery Rate 10/02 0931 94 Nasal 3.0L Cannula 10/02 0844 156/70 10/02 0844 156/70 10/02 0616 98.6 52 18 158/68 96 Nasal Cannula 10/02 0314 56 10/02 0014 56 92 10/02 0000 CPAP 3.0L 10/01 2224 60 156/78 10/01 2217 99.0 60 16 142/78 90 Nasal 3.0L Cannula 10/01 1802 63 156/80 10/01 1600 Nasal 3.0L Cannula 10/01 1447 98.0 58 20 148/64 93 Nasal 3.0L Cannula 10/01 1407 58 148/64 Intake & Output 10/02 1600 10/02 0800 10/02 0000 10/01 1600 10/01 0800 10/01 0000 Intake Total 100 555 220 120 Output Total 800 750 600 800 450 Balance -700 -750 -45 -580 -330 Intake, IV 100 155 100 120 Intake, Oral 400 120 Number 0 1 1 1 Bowel Movements Output, Urine 800 750 600 800 450 Patient 302 lb 304 lb Weight Weight Bed scale Measurement Method Physical Exam: General Appearance: well developed/nourished, alert, awake, oriented Head: normal HEENT: Normal Neck: supple, JVP normal, carotid upstrokes normal bilaterally, no masses or thyromegaly Respiratory: chest non-tender, clear to auscultation and percussion bilaterally Cardiovascular: regular rate/rhythm, normal S1, S2, 1-2/6 systolic murmur Abdomen: normal bowel sounds, soft, non-tender Extremities: normal inspection, 1-2+ edema Vascular: Pulses are 2+ and equal bilaterally Neurologic: Grossly normal/nonfocal Current Medications: Current Medications Sig/Jose Angel Start time Last Medication Dose Route Stop Time Status Admin Acetaminophen 1,000 MG ONCE ONE 10/01 2245 DC 10/02 N/A 1 UNIT IV 10/01 2259 0103 Acetaminophen 1,000 MG ONCE ONE 10/01 1700 DC 10/01 N/A 1 UNIT IV 10/01 1714 1800 Acetaminophen 650 MG Q4P PRN 09/27 1600 AC 09/28 PO 0638 Amlodipine Besylate 10 MG DAILY 09/24 0330 AC 10/02 PO 0844 Atorvastatin Calcium 40 MG 1700 09/24 1700 AC 10/01 PO 1643 Bumetanide 3 MG TID 09/30 1400 AC 10/02 IV 1046 Calcium Acetate 667 MG WM 09/24 1708 AC 10/02 PO 0843 Epoetin Chu 15,000 UNITS ONCE A WEEK 09/26 1045 09/26 SC 1214 Fenofibrate 145 MG DAILY 09/24 0900 AC 10/02 PO 0844 Ferric Sodium 125 MG Q48 09/27 1500 AC 10/01 Gluconate Complex IV 10/11 0959 0856 Sodium Chloride 100 ML Heparin Sodium 5,000 UNIT Q8 09/24 0600 AC 10/02 (Porcine) SC 0627 Hydralazine HCl 25 MG FOUR TIMES A DAY 09/24 0330 AC 10/02 PO 0844 Insulin Aspart 0 TIDAC 10/01 1200 AC 10/02 SC 0842 Magnesium Oxide 400 MG BID 09/27 0900 AC 10/02 PO 0843 Metaxalone 800 MG TID 09/24 0900 AC 10/02 PO 0845 Metolazone 10 MG BID 09/27 2100 AC 10/02 PO 0843 Metoprolol Tartrate 75 MG BID 09/24 0900 AC 10/02 PO 0843 Prednisone 40 MG DAILY 09/29 1427 10/02 PO 0844 Sevelamer Carbonate 1,600 MG WM 09/24 1711 AC 10/02 PO 0843 Sodium Bicarbonate 1,950 MG TID 09/26 1400 AC 10/02 PO 0844 Sodium Hypochlorite 1 MEI BID 09/25 1100 AC 10/02 TOP 1047 Tramadol HCl 50 MG Q8P PRN 10/01 1045 10/01 PO 1215 Trazodone HCl 100 MG QPM 09/27 2100 AC 10/01 PO 2222 Results Last 48 Hrs of Labs/Mics: Laboratory Tests 10/02/17 0610: Anion Gap 12, Estimated GFR 11 L, BUN/Creatinine Ratio 13.4, Phosphorus 5.6 H, Magnesium 2.2, CBC w Diff NO MAN DIFF REQ, RBC 3.42 L, MCV 91.1, MCH 29.6, MCHC 32.6 L, RDW 17.2 H, MPV 8.7, Gran % 75.0, Lymphocytes % 14.8 L, Monocytes % 9.9 H, Eosinophils % 0, Basophils % 0.3, Absolute Granulocytes 4.8, Absolute Lymphocytes 0.9 L, Absolute Monocytes 0.6, Absolute Eosinophils 0, Absolute Basophils 0 10/01/17604: Anion Gap 12, Estimated GFR 11 L, BUN/Creatinine Ratio 11.5, Phosphorus 6.3 H, Magnesium 2.0 Assessment/Plan Assessment/Plan Assessment: 1. Acute on chronic HFpEF 2. History of coronary disease, status post bypass surgery 3. Diabetes 4. CKD 5. Normocytic anemia Recommendations: 1. Continue to follow nephrology recommendations 2. Continue Bumex and metolazone at dosing as recommended by nephrology 3. Monitor input and output with daily weights 4. Check basic metabolic profile daily 5. Further plans as per nephrology Continue telemetry? Yes
--- NOTE | 2017-10-02 11:10 | PN- Nephrology ---
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 No chronic uremic symptoms to warrant dialysis initiation (although if unable to diurese on max dose diuretics, may need to start dialysis for that reason). Has decided on PD as HD modality. Follows with Dr. Pradhan. Fluid overload - Remains volume expanded. Good UOP although given his size, could be better. We can go up on the bumex to max dose of 4mg IV q8 + 10mg PO metolazone BID. His renal function and BP seem to be tolerating thus far. Anemia - On weekly Epogen and IV iron replacement. Met acidosis - On 1300mg sodium bicarb QID - at goal. Hyperphos - Improving. HTN - BP reasonable on current regimen considering goal of diuresing - may continue to improve. Suggestion: -Increase Bumex to 4mg IV q8 + metolazone 10mg PO BID (give 30min prior to 2 of the bumex doses) -Target >3L/day of UOP -Daily standing weights -Epogen 15,000U weekly + ferrlecit 125mg IV every other day x8 doses -OK to cont sodium bicarb 1950mg TID -Cont phos binders Please call [phone] with ?'s Subjective Subjective: SCr 5.3 2150cc UOP Feels like swelling in upper body better Able to walk a bit - limited by R knee pain - breathing though OK Objective Vital Signs and I&Os Vital Signs Date Time Temp Pulse Resp B/P B/P Pulse O2 O2 Flow FiO2 Mean Ox Delivery Rate 10/02 0931 94 Nasal 3.0L Cannula 10/02 0844 156/70 10/02 0844 156/70 10/02 0616 98.6 52 18 158/68 96 Nasal Cannula 10/02 0314 56 10/02 0014 56 92 10/02 0000 CPAP 3.0L 10/01 2224 60 156/78 10/01 2217 99.0 60 16 142/78 90 Nasal 3.0L Cannula 10/01 1802 63 156/80 10/01 1600 Nasal 3.0L Cannula 10/01 1447 98.0 58 20 148/64 93 Nasal 3.0L Cannula 10/01 1407 58 148/64 Intake & Output 10/02 1600 10/02 0400 10/01 1600 10/01 0400 09/30 1600 09/30 0400 Intake Total 100 775 120 570 120 Output Total 817 430 5801 450 1600 700 Balance -700 -750 -625 -330 -1030 -580 Intake, IV 100 255 120 50 Intake, Oral 520 520 120 Number 0 2 1 Bowel Movements Output, Urine 357 714 8614 450 1600 700 Patient 302 lb 304 lb 307 lb Weight Weight Bed scale Bed scale Measurement Method Physical Exam: Gen - OK appearing HEENT - supple CV - RRR, no m/r/g Chest - clear, no w/r/r Abd - soft, NTND Ext - ++edema (improved) Neuro - AOX3, grossly nonfocal Current Medications: Current Medications Sig/Jose Angel Start time Last Medication Dose Route Stop Time Status Admin Acetaminophen 1,000 MG ONCE ONE 10/01 2245 DC 10/02 N/A 1 UNIT IV 10/01 2259 0103 Acetaminophen 1,000 MG ONCE ONE 10/01 1700 DC 10/01 N/A 1 UNIT IV 10/01 1714 1800 Acetaminophen 650 MG Q4P PRN 09/27 1600 AC 09/28 PO 0638 Amlodipine Besylate 10 MG DAILY 09/24 0330 AC 10/02 PO 0844 Atorvastatin Calcium 40 MG 1700 09/24 1700 AC 10/01 PO 1643 Bumetanide 3 MG TID 09/30 1400 AC 10/02 IV 1046 Calcium Acetate 667 MG WM 09/24 1708 AC 10/02 PO 0843 Epoetin Chu 15,000 UNITS ONCE A WEEK 09/26 1045 AC 09/26 CO 1214 Fenofibrate 145 MG DAILY 09/24 0900 AC 10/02 PO 0844 Ferric Sodium 125 MG Q48 09/27 1500 AC 10/01 Gluconate Complex IV 10/11 0959 0856 Sodium Chloride 100 ML Heparin Sodium 5,000 UNIT Q8 09/24 0600 AC 10/02 (Porcine) SC 0627 Hydralazine HCl 25 MG FOUR TIMES A DAY 09/24 0330 AC 10/02 PO 0844 Insulin Aspart 0 TIDAC 10/01 1200 AC 10/02 SC 0842 Magnesium Oxide 400 MG BID 09/27 0900 AC 10/02 PO 0843 Metaxalone 800 MG TID 09/24 0900 AC 10/02 PO 0845 Metolazone 10 MG BID 09/27 2100 AC 06/20 PO 0843 Metoprolol Tartrate 75 MG BID 09/24 0900 AC 10/02 PO 0843 Prednisone 40 MG DAILY 09/29 1427 AC 10/02 PO 0844 Sevelamer Carbonate 1,600 MG WM 09/24 1711 AC 10/02 PO 0843 Sodium Bicarbonate 1,950 MG TID 09/26 1400 AC 10/02 PO 0844 Sodium Hypochlorite 1 MEI BID 09/25 1100 AC 10/02 TOP 1047 Tramadol HCl 50 MG Q8P PRN 10/01 1045 AC 10/01 PO 1215 Trazodone HCl 100 MG QPM 09/27 2100 AC 10/01 PO 2222 Results Pertinent Lab Results: Laboratory Tests 10/02 10/01 0610 0605 Chemistry Sodium (137 - 145 mmol/L) 141 141 Potassium (3.5 - 5.1 mmol/L) 4.3 4.4 Chloride (98 - 107 mmol/L) 107 107 Carbon Dioxide (22 - 30 mmol/L) 23 22 Anion Gap (5 - 16) 12 12 BUN (9 - 20 mg/dL) 71 H 63 H Creatinine (0.7 - 1.2 mg/dL) 5.3 *H 5.5 *H Estimated GFR (>60 ml/min) 11 L 11 L BUN/Creatinine Ratio (7 - 25 %) 13.4 11.5 Phosphorus (2.5 - 4.5 mg/dL) 5.6 H 6.3 H Magnesium (1.6 - 2.3 mg/dL) 2.2 2.0 Hematology CBC w Diff NO MAN DIFF REQ WBC (4.8 - 10.8 /CUMM) 6.4 RBC (4.70 - 6.10 /CUMM) 3.42 L Hgb (14.0 - 18.0 G/DL) 10.1 L Hct (42 - 52 %) 31.1 L MCV (80.0 - 94.0 FL) 91.1 MCH (27.0 - 31.0 PG) 29.6 MCHC (33.0 - 37.0 G/DL) 32.6 L RDW (11.5 - 14.5 %) 17.2 H Plt Count (130 - 400 /CUMM) 204 MPV (7.4 - 10.4 FL) 8.7 Gran % (42.2 - 75.2 %) 75.0 Lymphocytes % (20.5 - 51.1 %) 14.8 L Monocytes % (1.7 - 9.3 %) 9.9 H Eosinophils % (0 - 5 %) 0 Basophils % (0.0 - 2.0 %) 0.3 Absolute Granulocytes (1.4 - 6.5 /CUMM) 4.8 Absolute Lymphocytes (1.2 - 3.4 /CUMM) 0.9 L Absolute Monocytes (0.10 - 0.60 /CUMM) 0.6 Absolute Eosinophils (0.0 - 0.7 /CUMM) 0 Absolute Basophils (0.0 - 0.2 /CUMM) 0 09/30 09/29 0603 1915 Chemistry Sodium (137 - 145 mmol/L) 141 Potassium (3.5 - 5.1 mmol/L) 4.5 Chloride (98 - 107 mmol/L) 107 Carbon Dioxide (22 - 30 mmol/L) 20 L Anion Gap (5 - 16) 14 BUN (9 - 20 mg/dL) 56 H Creatinine (0.7 - 1.2 mg/dL) 5.4 *H Estimated GFR (>60 ml/min) 11 L BUN/Creatinine Ratio (7 - 25 %) 10.4 Hematology CBC w Diff NO MAN DIFF REQ WBC (4.8 - 10.8 /CUMM) 9.4 RBC (4.70 - 6.10 /CUMM) 3.28 L Hgb (14.0 - 18.0 G/DL) 9.9 L Hct (42 - 52 %) 30.3 L MCV (80.0 - 94.0 FL) 92.4 MCH (27.0 - 31.0 PG) 30.0 MCHC (33.0 - 37.0 G/DL) 32.5 L RDW (11.5 - 14.5 %) 16.1 H Plt Count (130 - 400 /CUMM) 181 MPV (7.4 - 10.4 FL) 9.1 Gran % (42.2 - 75.2 %) 86.6 H Lymphocytes % (20.5 - 51.1 %) 7.7 L Monocytes % (1.7 - 9.3 %) 5.7 Eosinophils % (0 - 5 %) 0 Basophils % (0.0 - 2.0 %) 0 Absolute Granulocytes (1.4 - 6.5 /CUMM) 8.1 H Absolute Lymphocytes (1.2 - 3.4 /CUMM) 0.7 L Absolute Monocytes (0.10 - 0.60 /CUMM) 0.5 Absolute Eosinophils (0.0 - 0.7 /CUMM) 0 Absolute Basophils (0.0 - 0.2 /CUMM) 0 ESR Westergren (0 - 10 MM) 59 H Imaging/Other Studies: None new
[2017-10-02 14:40] VITALS: BP 140/70
[2017-10-02 23:26] VITALS: BP 156/82
[2017-10-03 06:50] VITALS: BP 160/68
--- NOTE | 2017-10-03 07:22 | PN- Housestaff ---
Renard Zuniga 10/03/17 0717: Subjective Follow-up For: Acute on chronic HFpEF History of coronary disease, status post bypass surgery Diabetes CKD Normocytic anemia Complaints: no complaints Tele-Events Since Last Visit: NSR, Sinus bradycardia, HR 51-57. No tele events noted. Subjective: Mr Urban feels well, and didnt have any new concerns. Vitals remained stable overnight. Urine output around 3L. Continues to remain fluid overloaded. Review of Systems Constitutional: Reports: see HPI. Objective Last 24 Hrs of Vital Signs/I&O Vital Signs Date Time Temp Pulse Resp B/P B/P Pulse O2 O2 Flow FiO2 Mean Ox Delivery Rate 10/03 0650 97.6 53 18 160/68 95 Nasal Cannula 10/03 0019 53 92 10/03 0000 94 Nasal 3.0L Cannula 10/02 2326 98.1 55 18 156/82 94 Nasal 3.0L Cannula 10/02 2312 78 92 10/02 2143 57 156/82 10/02 1739 146/76 10/02 1600 95 Nasal 3.0L Cannula 10/02 1440 97.8 60 20 140/70 92 Nasal 3.0L Cannula 10/02 1257 144/68 10/02 0931 94 Nasal 3.0L Cannula 10/02 0844 156/70 10/02 0844 156/70 Intake & Output 10/03 0800 10/03 0000 10/02 1600 Intake Total 400 Output Total 1000 800 550 Balance -1000 -800 -150 Intake, Oral 400 Number 1 2 Bowel Movements Output, Urine 1000 800 550 Patient 299 lb Weight Weight Bed scale Measurement Method Physical Exam General Appearance: No Acute Distress Other Physical Findings: General Exam: AAOx3, mild distress, appears dyspneic while he was speaking, Skin: No rashes, no breakdown; HEENT: PERRLA, EOMI;Neck: Supple, No JVD; No cervical lymphadenopathy; CVS: Reg Rate, Normal S1,S2, No MGR; Resp: decreased air entry, no ronchi/rales;Abdomen: Soft, No tenderness, Normal Bowel Sounds; Neuro: Normal Speech, Strength 5/5 b/l x 4 extremities, Sensation intact, CN III -XII NL, Reflexes 2+; Extremities: No cyanosis, 2 + pedal edema, ? claire bandage on the left foot in place, and couldnt examine; bandage is changed three days every week. Doesnt appear to have any discharge. Current Medications: Current Medications Sig/Jose Angel Start time Last Medication Dose Route Stop Time Status Admin Acetaminophen 1,000 MG ONCE ONE 10/03 1999 DC 10/02 N/A 1 UNIT IV 10/02 Acetaminophen 650 MG Q4P PRN 09/27 1600 AC 09/28 PO 0638 Amlodipine Besylate 10 MG DAILY 09/24 0330 AC 10/02 PO 0844 Atorvastatin Calcium 40 MG 1700 09/24 1700 AC 10/02 PO 1603 Bumetanide 4 MG Q8 10/02 1400 AC 10/03 IV 0557 Bumetanide 3 MG TID 09/30 1400 DC 10/02 IV 1046 Calcium Acetate 667 MG WM 09/24 1708 AC 10/02 PO 1602 Epoetin Hcu 15,000 UNITS ONCE A WEEK 09/26 1045 AC 09/26 SC 1214 Fenofibrate 145 MG DAILY 09/24 0900 AC 10/02 PO 0844 Ferric Sodium 125 MG Q48 09/27 1500 AC 10/01 Gluconate Complex IV 10/11 0959 0856 Sodium Chloride 100 ML Heparin Sodium 5,000 UNIT Q8 09/24 0600 AC 10/03 (Porcine) SC 0557 Hydralazine HCl 25 MG FOUR TIMES A DAY 09/24 0330 AC 10/02 PO 2143 Insulin Aspart 0 TIDAC 10/01 1200 AC 10/02 SC 1740 Magnesium Oxide 400 MG BID 09/27 0900 AC 10/02 PO 2143 Metaxalone 800 MG TID 09/24 0900 AC 10/02 PO 2142 Metolazone 10 MG BID 09/27 2100 AC 10/02 PO 2143 Metoprolol Tartrate 75 MG BID 09/24 0900 AC 10/02 PO 2143 Prednisone 40 MG DAILY 09/29 1427 AC 10/02 PO 10/03 1100 0844 Sevelamer Carbonate 1,600 MG WM 09/24 1711 AC 10/02 PO 1602 Sodium Bicarbonate 1,950 MG TID 09/26 1400 AC 10/02 PO 2142 Sodium Hypochlorite 1 MEI BID 09/25 1100 AC 10/02 TOP 1047 Tramadol HCl 50 MG Q8P PRN 10/01 1045 AC 10/01 PO 1215 Trazodone HCl 100 MG QPM 09/27 2100 AC 10/02 PO 2143 Last 24 Hrs of Lab/[place] Results Last 24 Hrs of Labs/Mics: Laboratory Tests 10/03/17 0612: Sodium Pending, Potassium Pending, Chloride Pending, Carbon Dioxide Pending, Anion Gap Pending, BUN Pending, Creatinine Pending, BUN/Creatinine Ratio Pending , Phosphorus Pending, Magnesium Pending, CBC w Diff Pending, WBC Pending, RBC Pending, Hgb Pending, Hct Pending, MCV Pending, MCH Pending, MCHC Pending, RDW Pending, Plt Count Pending, MPV Pending Assessment/Plan Assessment: Mr Urban is a 80-year-old man w/ a PMHx of 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 Pertinent lab findings: WBC 9.4, hemoglobin 9.9-->10.3, platelets 181 Sodium 141, potassium 4.4, bicarbonate 22, anion gap 12 BUN 57 (09/23/2017)-->63 (10/01/2017)-->71(10/02/2017)-->73(10/03/2017) Sr Cr 5.0 (09/23/2017)--> 5.5 (10/01/2017)-->5.3(10/02/2017)-->5.6(10/03/2017) Phos 7.3 (09/23/2017)--> 6.3 (10/01/2017)-->5.5(10/03/2017) Mg 1.7 (09/23/2017)--> 2.0 (10/01/2017) ProBNP 78780 Troponin 0.01,0.01 Liver chemistries-AST 20, ALT 19, alkaline phosphatase 111, albumin 2.9 Urinalysis revealed urine protein greater than 100, ULE small, WBC 5-10. Etiology in his case is likely diabetic nephropathy, and other causes such as obesity induced FSG or obstructive nephropathy. He is clearly in volume overload , and unsure if the pt couldnt diurese in the past on his current diuretics/ diuretic resistance. Serum creatinine is stable at this time, and would have to continue diuresis with up to 4 L per day of fluid. If unable to diurese adequately, would have to start hemodialysis. Urine output in the last 24 hrs: ~ 3L. Below is the plan: 1. Stage IV/V CKD- He was aggressively being diuresed using metolazone and bumetanide. On iv 4mg bumex and 10mg metolazone, and would change bumetanide to furosemide 120 mg every 8 hours. It is unclear, why he is not actively being diuresed on this current regimen. Perhaps changing the combination of metolazone and furosemide would likely be synergistic. Reinforced the importance of timing of administration of metolazone 30 minutes prior to furosemide administration. Also addition of intravenous albumin every 8 hours would likely benefit. Discussed with the sewer maintenance supervisor. Continue Epogen 15,000U weekly Continue Ferrlecit 125mg IV every other day x8 doses Continue Phoslo Strict I/Os and daily weights. Aranda placed 09/26/[address] Cancino. As per Dr. Cancino, Aranda catheter could be removed, if he is not actively diuresing. avoid nephrotoxic meds 1300mg sodium bicarb QID 2. Acute on chronic HFpEF strict I/0s daily accurate weights continue metoprolol 3. Type 2 DM accuchecks continue ISS 4. Left heel non-healing ulcer/chest furuncle wound consult. Change dressing every third day. Surgery consulted, recomending heat application, will continue to monitor. 5. Acute pseudo gout ortho has been consulted. Completed the course of prednisone. IV tylenol for pain control. DVT ppx sc heparin full code renal dialysis diet Problem List: 1. Diabetes 2. Bilateral pleural effusion 3. Anasarca Pain Ratin Pain Location: RLE Pain Goal: Pain 4 or less Pain Plan: tylenol prn Tomorrow's Labs & Rationales: cbc Rebecca Narayan 10/03/17 1102: Attending MD Review Statement Attending Statement Attending MD Statement: examined this patient, discuss w/resident/PA/GUIDE ESCORT, agreed w/resident/PA/GUIDE ESCORT, discussed with family, reviewed EMR data (avail), discussed with nursing, discussed with case mgmt, reviewed images, amended to note Attending Assessment/Plan: Patient with no new complaints. Patient is receiving high dose of bumex 4mg iv tid with metalazone. Monitor his creatinine. His fluid overlaod is better than admisison. He is making urine with negative balance. Cont rest of care.. Plan for dialysis and discharge planning as per nephrology.
[2017-10-03 08:32] LABS: ABSOLUTE BASOPHIL COUNT 0 /CUMM (0.0-0.2); ABSOLUTE EOSINOPHIL COUNT 0 /CUMM (0.0-0.7); ABSOLUTE GRANULOCYTE CT 3.9 /CUMM (1.4-6.5); ABSOLUTE MONOCYTE COUNT 0.5 /CUMM (0.10-0.60); BASOPHIL % 0.2 % (0.0-2.0); EOSINOPHIL % 0.1 % (0-5); GRANULOCYTE % 71.5 % (42.2-75.2); HEMATOCRIT 31.7 % (42-52); MEAN CORPUSCULAR HGB 29.7 PG (27.0-31.0); MEAN CORPUSCULAR HGB CONC 32.5 G/DL (33.0-37.0); MEAN CORPUSCULAR VOLUME 91.4 FL (80.0-94.0); MEAN PLATELET VOLUME 8.9 FL (7.4-10.4); PLATELET COUNT 201 /CUMM (130-400); RBC DISTRIBUTION WIDTH 16.8 % (11.5-14.5); RED BLOOD CELL CT 3.47 /CUMM (4.70-6.10); WHITE BLOOD CELL COUNT 5.5 /CUMM (4.8-10.8)
--- NOTE | 2017-10-03 08:35 | PN- Cardiology ---
Subjective Subjective: The patient remains short of breath. No chest pain. He is diuresing well. Objective Vital Signs and I&Os Vital Signs Date Time Temp Pulse Resp B/P B/P Pulse O2 O2 Flow FiO2 Mean Ox Delivery Rate 10/03 0650 97.6 53 18 160/68 95 Nasal Cannula 10/03 0019 53 92 10/03 0000 94 Nasal 3.0L Cannula 10/02 2326 98.1 55 18 156/82 94 Nasal 3.0L Cannula 10/02 2312 78 92 10/02 2143 57 156/82 10/02 1739 146/76 10/02 1600 95 Nasal 3.0L Cannula 10/02 1440 97.8 60 20 140/70 92 Nasal 3.0L Cannula 10/02 1257 144/68 10/02 0931 94 Nasal 3.0L Cannula 10/02 0844 156/70 10/02 0844 156/70 Intake & Output 10/03 1600 10/03 0800 10/03 0000 10/02 1600 10/02 0800 10/02 0000 Intake Total 400 100 Output Total 1000 800 550 800 750 Balance -1000 -800 -150 -700 -750 Intake, IV 100 Intake, Oral 400 Number 1 2 0 Bowel Movements Output, Urine 1000 800 550 800 750 Patient 299 lb 302 lb Weight Weight Bed scale Measurement Method Physical Exam: General Appearance: well developed/nourished, alert, awake, oriented Head: normal HEENT: Normal Neck: supple, JVP normal, carotid upstrokes normal bilaterally, no masses or thyromegaly Respiratory: chest non-tender, clear to auscultation and percussion bilaterally Cardiovascular: regular rate/rhythm, normal S1, S2, 1-2/6 systolic murmur Abdomen: normal bowel sounds, soft, non-tender Extremities: normal inspection, 2+ edema Vascular: Pulses are 2+ and equal bilaterally Neurologic: Grossly normal/nonfocal Current Medications: Current Medications Sig/Jose Angel Start time Last Medication Dose Route Stop Time Status Admin Acetaminophen 1,000 MG ONCE ONE 10/03 1999 DC 10/02 N/A 1 UNIT IV 10/02 Acetaminophen 650 MG Q4P PRN 09/27 1600 AC 09/28 PO 0638 Amlodipine Besylate 10 MG DAILY 09/24 0330 AC 10/02 PO 0844 Atorvastatin Calcium 40 MG 1700 09/24 1700 AC 10/02 PO 1603 Bumetanide 4 MG Q8 10/02 1400 AC 10/03 IV 0557 Bumetanide 3 MG TID 09/30 1400 DC 10/02 IV 1046 Calcium Acetate 667 MG WM 09/24 1708 AC 10/02 PO 1602 Epoetin Chu 15,000 U ONCE A WEEK 10/03 1000 AC SC Epoetin Chu 15,000 UNITS ONCE A WEEK 09/26 1045 DC 09/26 SC 1214 Fenofibrate 145 MG DAILY 09/24 0900 AC 10/02 PO 0844 Ferric Sodium 125 MG Q48 09/27 1500 AC 10/01 Gluconate Complex IV 10/11 0959 0856 Sodium Chloride 100 ML Heparin Sodium 5,000 UNIT Q8 09/24 0600 AC 10/03 (Porcine) SC 0557 Hydralazine HCl 25 MG FOUR TIMES A DAY 09/24 0330 AC 10/02 PO 2143 Insulin Aspart 0 TIDAC 10/01 1200 AC 10/02 SC 1740 Magnesium Oxide 400 MG BID 09/27 0900 AC 10/02 PO 2143 Metaxalone 800 MG TID 09/24 0900 AC 10/02 PO 2142 Metolazone 10 MG BID 09/27 2100 AC 10/02 PO 2143 Metoprolol Tartrate 75 MG BID 09/24 0900 AC 10/02 PO 2143 Prednisone 40 MG DAILY 09/29 1427 AC 10/02 PO 10/03 1100 0844 Sevelamer Carbonate 1,600 MG 09/24 1711 AC 10/02 PO 1602 Sodium Bicarbonate 1,950 MG TID 09/26 1400 AC 10/02 PO 2142 Sodium Hypochlorite 1 MEI BID 09/25 1100 AC 10/02 TOP 1047 Tramadol HCl 50 MG Q8P PRN 10/01 1045 AC 10/01 PO 1215 Trazodone HCl 100 MG QPM 09/27 2100 AC 10/02 PO 2143 Results Last 48 Hrs of Labs/Mics: Laboratory Tests 10/03/17 0612: Sodium Pending, Potassium Pending, Chloride Pending, Carbon Dioxide Pending, Anion Gap Pending, BUN Pending, Creatinine Pending, BUN/Creatinine Ratio Pending , Phosphorus Pending, Magnesium Pending, CBC w Diff Pending, WBC Pending, RBC Pending, Hgb Pending, Hct Pending, MCV Pending, MCH Pending, MCHC Pending, RDW Pending, Plt Count Pending, MPV Pending 10/02/17 0610: Anion Gap 12, Estimated GFR 11 L, BUN/Creatinine Ratio 13.4, Phosphorus 5.6 H, Magnesium 2.2, CBC w Diff NO MAN DIFF REQ, RBC 3.42 L, MCV 91.1, MCH 29.6, MCHC 32.6 L, RDW 17.2 H, MPV 8.7, Gran % 75.0, Lymphocytes % 14.8 L, Monocytes % 9.9 H, Eosinophils % 0, Basophils % 0.3, Absolute Granulocytes 4.8, Absolute Lymphocytes 0.9 L, Absolute Monocytes 0.6, Absolute Eosinophils 0, Absolute Basophils 0 Assessment/Plan Assessment/Plan Assessment: 1. Acute on chronic HFpEF 2. History of coronary disease, status post bypass surgery 3. Diabetes 4. CKD 5. Normocytic anemia Recommendations: 1. Continue to follow nephrology recommendations 2. Continue Bumex and metolazone at dosing as recommended by nephrology 3. Monitor input and output with daily weights 4. Check basic metabolic profile daily Continue telemetry? Yes
--- NOTE | 2017-10-03 11:23 | PN- Nephrology ---
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 No chronic uremic symptoms to warrant dialysis initiation (although if unable to diurese on max dose diuretics, may need to start dialysis for that reason). Has decided on PD as HD modality. Follows with Dr. Pradhan. Fluid overload - Remains volume expanded. UOP "good" although not great considering his size as well as our goal to diurese him aggressively. Perhaps switching to IV lasix which has somewhat different pharmacokinetics, adding IV albumin given low serum albumin level, and making sure that the metolazone is given 30min prior to IV lasix dose will all help increase his UOP and get off more fluid. Anemia - On weekly Epogen and IV iron replacement. Met acidosis - On 1300mg sodium bicarb QID - at goal. Hyperphos - Improving. HTN - BP reasonable on current regimen considering goal of diuresing (a bit elevated today) - may continue to improve. There is room to go on his hydralazine if it continues to be elevated. Suggestion: -Switch to 120mg IV lasix q8 + metolazone 10mg PO BID (give 30min prior to 2 of the lasix doses) -25% IV albumin q8 - given concurrently with IV lasix -Target >3L/day of UOP -Daily standing weights -Epogen 15,000U weekly + ferrlecit 125mg IV every other day x8 doses -OK to cont sodium bicarb 1950mg TID -Cont phos binders Please call [phone] with ?'s Subjective Subjective: SCr 5.6 2150cc UOP on 4mg IV Bumex TID (got 2 doses yesterday) and 10mg PO metolazone BID (noted though that the timing does not 100% correspond to 30 min prior to IV bumex dosing) Pt still feels swollen Albumin was 2.9 Objective Vital Signs and I&Os Vital Signs Date Time Temp Pulse Resp B/P B/P Pulse O2 O2 Flow FiO2 Mean Ox Delivery Rate 10/03 1107 55 168/80 10/03 1106 55 168/80 10/03 0650 97.6 53 18 160/68 95 Nasal Cannula 10/03 0019 53 92 10/03 0000 94 Nasal 3.0L Cannula 10/02 2326 98.1 55 18 156/82 94 Nasal 3.0L Cannula 10/02 2312 78 92 10/02 2143 57 156/82 10/02 1739 146/76 10/02 1600 95 Nasal 3.0L Cannula 10/02 1440 97.8 60 20 140/70 92 Nasal 3.0L Cannula 10/02 1257 144/68 Intake & Output 10/03 1600 10/03 0400 10/02 1600 10/02 0400 10/01 1600 10/01 0400 Intake Total 500 775 120 Output Total 5486 996 9067 750 1400 450 Balance -1000 -800 -850 -750 -625 -330 Intake, IV 100 255 120 Intake, Oral 400 520 Number 1 2 2 1 Bowel Movements Output, Urine 8162 216 3612 750 1400 450 Patient 299 lb 302 lb 304 lb Weight Weight Bed scale Bed scale Measurement Method Physical Exam: Gen - OK appearing HEENT - supple CV - RRR, no m/r/g Chest - clear, no w/r/r Abd - soft, NTND Ext - ++edema (improved) Neuro - AOX3, grossly nonfocal Current Medications: Current Medications Sig/Jose Angel Start time Last Medication Dose Route Stop Time Status Admin Acetaminophen 1,000 MG ONCE ONE 10/03 1999 DC 10/02 N/A 1 UNIT IV 10/02 Acetaminophen 650 MG Q4P PRN 09/27 1600 AC 09/28 PO 0638 Amlodipine Besylate 10 MG DAILY 09/24 0330 AC 10/03 PO 1107 Atorvastatin Calcium 40 MG 1700 09/24 1700 AC 10/02 PO 1603 Bumetanide 4 MG Q8 10/02 1400 AC 10/03 IV 0557 Bumetanide 3 MG TID 09/30 1400 DC 10/02 IV 1046 Calcium Acetate 667 MG WM 09/24 1708 AC 10/03 PO 1102 Epoetin Chu 15,000 U ONCE A WEEK 10/03 1000 AC 10/03 SC 1052 Epoetin Cuh 15,000 UNITS ONCE A WEEK 09/26 1045 DC 09/26 SC 1214 Fenofibrate 145 MG DAILY 09/24 0900 AC 10/03 PO 1104 Ferric Sodium 125 MG Q48 09/27 1500 AC 10/03 Gluconate Complex IV 10/11 0959 1054 Sodium Chloride 100 ML Heparin Sodium 5,000 UNIT Q8 09/24 0600 AC 10/03 (Porcine) SC 0557 Hydralazine HCl 25 MG FOUR TIMES A DAY 09/24 0330 AC 10/03 PO 1106 Insulin Aspart 0 TIDAC 10/01 1200 AC 10/02 SC 1740 Magnesium Oxide 400 MG BID 09/27 0900 AC 10/03 PO 1103 Metaxalone 800 MG TID 09/24 0900 AC 10/03 PO 1106 Metolazone 10 MG BID 09/27 2100 AC 10/03 PO 1104 Metoprolol Tartrate 75 MG BID 09/24 0900 AC 10/03 PO 1107 Prednisone 40 MG DAILY 09/29 1427 DC 10/03 PO 10/03 1100 1103 Sevelamer Carbonate 1,600 MG WM 09/24 1711 AC 10/03 PO 1102 Sodium Bicarbonate 1,950 MG TID 09/26 1400 AC 10/03 PO 1103 Sodium Hypochlorite 1 MEI BID 09/25 1100 AC 10/03 TOP 1108 Tramadol HCl 50 MG Q8P PRN 10/01 1045 AC 10/01 PO 1215 Trazodone HCl 100 MG QPM 09/27 2100 AC 10/02 PO 2143 Results Pertinent Lab Results: Laboratory Tests 10/03 10/02 0612 0610 Chemistry Sodium (137 - 145 mmol/L) 143 141 Potassium (3.5 - 5.1 mmol/L) 4.3 4.3 Chloride (98 - 107 mmol/L) 107 107 Carbon Dioxide (22 - 30 mmol/L) 24 23 Anion Gap (5 - 16) 12 12 BUN (9 - 20 mg/dL) 73 H 71 H Creatinine (0.7 - 1.2 mg/dL) 5.6 *H 5.3 *H Estimated GFR (>60 ml/min) 10 L 11 L BUN/Creatinine Ratio (7 - 25 %) 13.0 13.4 Phosphorus (2.5 - 4.5 mg/dL) 5.5 H 5.6 H Magnesium (1.6 - 2.3 mg/dL) 2.3 2.2 Hematology CBC w Diff NO MAN DIFF REQ NO MAN DIFF REQ WBC (4.8 - 10.8 /CUMM) 5.5 6.4 RBC (4.70 - 6.10 /CUMM) 3.47 L 3.42 L Hgb (14.0 - 18.0 G/DL) 10.3 L 10.1 L Hct (42 - 52 %) 31.7 L 31.1 L MCV (80.0 - 94.0 FL) 91.4 91.1 MCH (27.0 - 31.0 PG) 29.7 29.6 MCHC (33.0 - 37.0 G/DL) 32.5 L 32.6 L RDW (11.5 - 14.5 %) 16.8 H 17.2 H Plt Count (130 - 400 /CUMM) 201 204 MPV (7.4 - 10.4 FL) 8.9 8.7 Gran % (42.2 - 75.2 %) 71.5 75.0 Lymphocytes % (20.5 - 51.1 %) 18.7 L 14.8 L Monocytes % (1.7 - 9.3 %) 9.5 H 9.9 H Eosinophils % (0 - 5 %) 0.1 0 Basophils % (0.0 - 2.0 %) 0.2 0.3 Absolute Granulocytes (1.4 - 6.5 /CUMM) 3.9 4.8 Absolute Lymphocytes (1.2 - 3.4 /CUMM) 1.0 L 0.9 L Absolute Monocytes (0.10 - 0.60 /CUMM) 0.5 0.6 Absolute Eosinophils (0.0 - 0.7 /CUMM) 0 0 Absolute Basophils (0.0 - 0.2 /CUMM) 0 0 06/19 0605 Chemistry Sodium (137 - 145 mmol/L) 141 Potassium (3.5 - 5.1 mmol/L) 4.4 Chloride (98 - 107 mmol/L) 107 Carbon Dioxide (22 - 30 mmol/L) 22 Anion Gap (5 - 16) 12 BUN (9 - 20 mg/dL) 63 H Creatinine (0.7 - 1.2 mg/dL) 5.5 *H Estimated GFR (>60 ml/min) 11 L BUN/Creatinine Ratio (7 - 25 %) 11.5 Phosphorus (2.5 - 4.5 mg/dL) 6.3 H Magnesium (1.6 - 2.3 mg/dL) 2.0 Imaging/Other Studies: None new
[2017-10-03 14:00] VITALS: BP 158/66
[2017-10-03 22:02] VITALS: BP 168/74
[2017-10-04 06:47] VITALS: BP 136/70
--- NOTE | 2017-10-04 07:12 | PN- Housestaff ---
Renard Zuniga 10/04/17 0710: Subjective Follow-up For: Acute on chronic HFpEF History of coronary disease, status post bypass surgery Diabetes CKD Normocytic anemia Complaints: no complaints Tele-Events Since Last Visit: HR 50-53, NSR, No overnight tele events. Subjective: He was comfortable this am. He feels much better compared to before. He stated that he walked, and didnt have any worsening symptoms. Vitals stable overnight. No new complaints. Review of Systems Constitutional: Reports: see HPI. Objective Last 24 Hrs of Vital Signs/I&O Vital Signs Date Time Temp Pulse Resp B/P B/P Pulse O2 O2 Flow FiO2 Mean Ox Delivery Rate 10/04 0647 97.5 52 20 136/70 95 Room Air 10/04 0014 53 93 10/04 0000 Nasal 3.0L Cannula 10/03 2202 97.5 53 20 168/74 90 Nasal 3.0L Cannula 10/03 2133 54 170/78 10/03 1654 56 158/66 10/03 1400 97.6 56 20 158/66 95 10/03 1107 55 168/80 10/03 1106 55 168/80 10/03 0800 Nasal 3.0L Cannula Intake & Output 10/04 0800 10/04 0000 10/03 1600 Intake Total 750 Output Total 1400 700 650 Balance -1400 -700 100 Intake, IV 250 Intake, Oral 500 Number 2 1 Bowel Movements Output, Urine 1400 700 650 Patient 300 lb Weight Weight Bed scale Measurement Method Physical Exam General Appearance: No Acute Distress Other Physical Findings: General Exam: AAOx3, mild distress, appears dyspneic while he was speaking, Skin: No rashes, no breakdown, erythematous elevate; HEENT: PERRLA, EOMI;Neck: Supple, No JVD; No cervical lymphadenopathy; CVS: Reg Rate, Normal S1,S2, No MGR ; Resp: decreased air entry, no ronchi/rales;Abdomen: Soft, No tenderness, Normal Bowel Sounds;Neuro: Normal Speech, Strength 5/5 b/l x 4 extremities, Sensation intact, CN III-XII NL, Reflexes 2+; Extremities: No cyanosis, 2 + pedal edema, ? claire bandage on the left foot in place, and couldnt examine; bandage is changed three days every week. Doesnt appear to have any discharge. Current Medications: Current Medications Sig/Jose Angel Start time Last Medication Dose Route Stop Time Status Admin Acetaminophen 1,000 MG ONCE ONE 10/03 1145 DC 10/03 IV 10/03 1146 1205 Acetaminophen 650 MG Q4P PRN 09/27 1600 09/28 PO 0638 Albumin Human 25 GM Q8 10/03 1400 10/04 IV 0540 Amlodipine Besylate 10 MG DAILY 09/24 0330 AC 10/03 PO 1107 Atorvastatin Calcium 40 MG 1700 09/24 1700 AC 10/03 PO 1657 Bumetanide 4 MG Q8 10/02 1400 [place] 10/03 IV 0557 Calcium Acetate 667 MG WM 09/24 1708 10/03 PO 1658 Epoetin Chu 15,000 U ONCE A WEEK 10/03 1000 10/03 SC 1052 Epoetin Chu 15,000 UNITS ONCE A WEEK 09/26 1045 [place] 09/26 SC 1214 Fenofibrate 145 MG DAILY 09/24 0900 10/03 PO 1104 Ferric Sodium 125 MG Q48 09/27 1500 AC 10/03 Gluconate Complex IV 10/11 0959 1054 Sodium Chloride 100 ML Furosemide 120 MG Q8 10/03 1400 10/04 IV 0605 Heparin Sodium 5,000 UNIT Q8 09/24 0600 10/04 (Porcine) SC 0539 Hydralazine HCl 25 MG FOUR TIMES A DAY 09/24 0330 10/03 PO 2133 Insulin Aspart 0 TIDAC 10/01 1200 10/03 SC 1705 Magnesium Oxide 400 MG BID 09/27 0900 10/03 PO 2133 Metaxalone 800 MG TID 09/24 0900 10/03 PO 2139 Metolazone 10 MG 0530,2130 10/03 2130 10/04 PO 0539 Metolazone 10 MG BID 09/27 2100 [place] 10/03 PO 1104 Metoprolol Tartrate 75 MG BID 09/24 0900 10/03 PO 2133 Prednisone 40 MG DAILY 09/29 1427 DC 10/03 PO 10/03 1100 1103 Sevelamer Carbonate 1,600 MG WM 09/24 1711 10/03 PO 1657 Sodium Bicarbonate 1,950 MG TID 09/26 1400 AC 10/03 PO 2132 Sodium Hypochlorite 1 MEI BID 09/25 1100 10/03 TOP 1108 Tramadol HCl 50 MG Q8P PRN 10/01 1045 AC 10/01 PO 1215 Trazodone HCl 100 MG QPM 09/27 2100 AC 10/03 PO 2133 Last 24 Hrs of Lab/[place] Results Last 24 Hrs of Labs/Mics: Laboratory Tests 10/04/17 0634: Sodium Pending, Potassium Pending, Chloride Pending, Carbon Dioxide Pending, Anion Gap Pending, BUN Pending, Creatinine Pending, BUN/Creatinine Ratio Pending , CBC w Diff Pending, WBC Pending, RBC Pending, Hgb Pending, Hct Pending, MCV Pending, MCH Pending, MCHC Pending, RDW Pending, Plt Count Pending, MPV Pending Assessment/Plan Assessment: Mr Urban is a 80-year-old man w/ a PMHx of 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 Pertinent lab findings: WBC 9.4, hemoglobin 9.9-->10.3, platelets 181 Sodium 141, potassium 4.4, bicarbonate 22, anion gap 12 BUN 57 (09/23/2017)-->63 (10/01/2017)-->71(10/02/2017)-->73(10/03/2017)-->79(2017) Sr Cr 5.0 (09/23/2017)--> 5.5 (10/01/2017)-->5.3(10/02/2017)-->5.6(10/03/2017)-->6.0 (10/04/2017) Phos 7.3 (09/23/2017)--> 6.3 (10/01/2017)-->5.5(10/03/2017) Mg 1.7 (09/23/2017)--> 2.0 (10/01/2017) ProBNP 02766 Troponin 0.01,0.01 Liver chemistries-AST 20, ALT 19, alkaline phosphatase 111, albumin 2.9 Urinalysis revealed urine protein greater than 100, ULE small, WBC 5-10. Etiology in his case is likely diabetic nephropathy, and other causes such as obesity induced FSG or obstructive nephropathy. He is clearly in volume overload , and unsure if the pt couldnt diurese in the past on his current diuretics/ diuretic resistance. Serum creatinine is stable at this time, and would have to continue diuresis with up to 4 L per day of fluid. If unable to diurese adequately, would have to start hemodialysis. Urine output in the last 24 hrs 4-4.5L. Below is the plan: 1. Stage IV/V CKD- He was aggressively being diuresed using metolazone and bumetanide, was changed to combination of metolazone and furosemide. The timing of metolazone, couldnt be done effectively. Reinforced the importance of timing of administration of metolazone 30 minutes prior to furosemide administration. Also addition of intravenous albumin every 8 hours would likely benefit. He has elevation of Sr Cr 5.4-->6.0, but would likely benefit from more diuresis. If the kidney function gets really worse, would slowly decrease the dose. Discussed with the wind technician. Continue Epogen 15,000U weekly Continue Ferrlecit 125mg IV every other day x8 doses. Continue Phoslo Strict I/Os and daily weights. March placed 09/26/[address] Cancino. As per Dr. Cancino, March catheter could be removed, if he is not actively diuresing. Slight discharge around the march inserted area, is likey due to active diuresis. avoid nephrotoxic meds 1300mg sodium bicarb QID 2. Acute on chronic HFpEF strict I/0s. Please check standing daily weights. daily accurate weights continue metoprolol 3. Type 2 DM accuchecks continue ISS 4. Left heel non-healing ulcer/chest furuncle wound consult. Change dressing every third day. Surgery consulted, recomending heat application, will continue to monitor. 5. Acute pseudo gout ortho has been consulted. Completed the course of prednisone. IV tylenol for pain control. DVT ppx sc heparin full code renal dialysis diet Problem List: 1. Diabetes 2. Bilateral pleural effusion 3. Anasarca Pain Ratin Pain Location: RLE Pain Goal: Pain 4 or less Pain Plan: tylenol Tomorrow's Labs & Rationales: cbc bep Rebecca Geiger 10/04/17 1056: Attending MD Review Statement Attending Statement Attending MD Statement: examined this patient, discuss w/resident/PA/QUILLER HAND, agreed w/resident/PA/QUILLER HAND, discussed with family, reviewed EMR data (avail), discussed with nursing, discussed with case mgmt, reviewed images, amended to note Attending Assessment/Plan: Patient seen/examined bedside. Patient denies any new compalnts. His knee pain is better now off steroids for possible pseudogout. His creatinine is trending upwards Cr 6.0. Negative balance with good urine output. Nephrology following, diuretics changed from bumex to lasix intravenous alongwith metalazone as per nephrology. He also receiving iv iron every other day for anemia of chronic disease. PT eval for STR placement. OOB to chair. Cont current care. gi/dvt prophyalxis full code
[2017-10-04 08:14] LABS: ABSOLUTE BASOPHIL COUNT 0 /CUMM (0.0-0.2); ABSOLUTE EOSINOPHIL COUNT 0 /CUMM (0.0-0.7); ABSOLUTE GRANULOCYTE CT 3.8 /CUMM (1.4-6.5); ABSOLUTE LYMPH COUNT 1.2 /CUMM (1.2-3.4); ABSOLUTE MONOCYTE COUNT 0.5 /CUMM (0.10-0.60); BASOPHIL % 0 % (0.0-2.0); EOSINOPHIL % 0.1 % (0-5); HEMATOCRIT 31.5 % (42-52); MEAN CORPUSCULAR HGB 29.3 PG (27.0-31.0); MEAN CORPUSCULAR HGB CONC 31.8 G/DL (33.0-37.0); MEAN CORPUSCULAR VOLUME 92.3 FL (80.0-94.0); MEAN PLATELET VOLUME 8.6 FL (7.4-10.4); PLATELET COUNT 194 /CUMM (130-400); RBC DISTRIBUTION WIDTH 16.5 % (11.5-14.5); RED BLOOD CELL CT 3.42 /CUMM (4.70-6.10); WHITE BLOOD CELL COUNT 5.5 /CUMM (4.8-10.8)
--- NOTE | 2017-10-04 11:15 | PN- Cardiology ---
Subjective Subjective: Continues to be about the same clinically. Continues to diurese well. Objective Vital Signs and I&Os Vital Signs Date Time Temp Pulse Resp B/P B/P Pulse O2 O2 Flow FiO2 Mean Ox Delivery Rate 10/04 0850 136/76 10/04 0849 136/76 10/04 0800 94 Nasal 3.0L Cannula 10/04 0647 97.5 52 20 136/70 95 Room Air 10/04 0014 53 93 10/04 0000 Nasal 3.0L Cannula 10/03 2202 97.5 53 20 168/74 90 Nasal 3.0L Cannula 10/03 2133 54 170/78 10/03 1654 56 158/66 10/03 1400 97.6 56 20 158/66 95 Intake & Output 10/04 1600 10/04 0800 10/04 0000 10/03 1600 10/03 0800 10/03 0000 Intake Total 750 Output Total 1400 912 428 0955 800 Balance -1400 -700 100 -1000 -800 Intake, IV 250 Intake, Oral 500 Number 2 1 1 Bowel Movements Output, Urine 1400 926 569 5623 800 Patient 300 lb 299 lb Weight Weight Bed scale Bed scale Measurement Method Physical Exam: General Appearance: well developed/nourished, alert, awake, oriented Head: normal HEENT: Normal Neck: supple, JVP normal, carotid upstrokes normal bilaterally, no masses or thyromegaly Respiratory: chest non-tender, clear to auscultation and percussion bilaterally Cardiovascular: regular rate/rhythm, normal S1, S2, 1-2/6 systolic murmur Abdomen: normal bowel sounds, soft, non-tender Extremities: normal inspection, 1-2+ edema Vascular: Pulses are 2+ and equal bilaterally Neurologic: Grossly normal/nonfocal Current Medications: Current Medications Sig/Jose Angel Start time Last Medication Dose Route Stop Time Status Admin Acetaminophen 1,000 MG ONCE ONE 10/03 1145 DC 10/03 IV 10/03 1146 1205 Acetaminophen 650 MG Q4P PRN 09/27 1600 AC 09/28 PO 0638 Albumin Human 25 GM Q8 10/03 1400 AC 10/04 IV 0540 Amlodipine Besylate 10 MG DAILY 09/24 0330 AC 10/04 PO 0850 Atorvastatin Calcium 40 MG 1700 09/24 1700 AC 10/03 PO 1657 Bumetanide 4 MG Q8 10/02 1400 DC 10/03 IV 0557 Calcium Acetate 667 MG WM 09/24 1708 10/04 PO 0849 Epoetin Chu 15,000 U ONCE A WEEK 10/03 1000 AC 10/03 SC 1052 Fenofibrate 145 MG DAILY 09/24 0900 10/04 PO 0849 Ferric Sodium 125 MG Q48 09/27 1500 AC 10/03 Gluconate Complex IV 10/11 0959 1054 Sodium Chloride 100 ML Furosemide 120 MG Q8 10/03 1400 AC 10/04 IV 0605 Heparin Sodium 5,000 UNIT Q8 09/24 0600 AC 10/04 (Porcine) SC 0539 Hydralazine HCl 25 MG FOUR TIMES A DAY 09/24 0330 10/04 PO 0849 Insulin Aspart 0 TIDAC 10/01 1200 10/04 SC 0851 Magnesium Oxide 400 MG BID 09/27 0900 10/04 PO 0850 Metaxalone 800 MG TID 09/24 0900 10/04 PO 0849 Metolazone 10 MG 0530,2130 10/03 2130 10/04 PO 0539 Metolazone 10 MG BID 09/27 2100 DC 10/03 PO 1104 Metoprolol Tartrate 75 MG BID 09/24 0900 10/04 PO 0849 Sevelamer Carbonate 1,600 MG WM 09/24 1711 AC 10/04 PO 0849 Sodium Bicarbonate 1,950 MG TID 09/26 1400 10/04 PO 0850 Sodium Hypochlorite 1 MEI BID 09/25 1100 AC 10/04 TOP 0851 Tramadol HCl 50 MG Q8P PRN 10/01 1045 AC 10/01 PO 1215 Trazodone HCl 100 MG QPM 09/27 2100 AC 10/03 PO 2133 Results Last 48 Hrs of Labs/Mics: Laboratory Tests 10/04/17 0634: Anion Gap 10, Estimated GFR 10 L, BUN/Creatinine Ratio 13.2, CBC w Diff NO MAN DIFF REQ, RBC 3.42 L, MCV 92.3, MCH 29.3, MCHC 31.8 L, RDW 16.5 H, MPV 8.6, Gran % 69.0, Lymphocytes % 21.4, Monocytes % 9.5 H, Eosinophils % 0.1, Basophils % 0, Absolute Granulocytes 3.8, Absolute Lymphocytes 1.2, Absolute Monocytes 0.5, Absolute Eosinophils 0, Absolute Basophils 0 10/03/17 0612: Anion Gap 12, Estimated GFR 10 L, BUN/Creatinine Ratio 13.0, Phosphorus 5.5 H, Magnesium 2.3, CBC w Diff NO MAN DIFF REQ, RBC 3.47 L, MCV 91.4, MCH 29.7, MCHC 32.5 L, RDW 16.8 H, MPV 8.9, Gran % 71.5, Lymphocytes % 18.7 L, Monocytes % 9.5 H, Eosinophils % 0.1, Basophils % 0.2, Absolute Granulocytes 3.9, Absolute Lymphocytes 1.0 L, Absolute Monocytes 0.5, Absolute Eosinophils 0, Absolute Basophils 0 Assessment/Plan Assessment/Plan Assessment: 1. Acute on chronic HFpEF 2. History of coronary disease, status post bypass surgery 3. Diabetes 4. CKD 5. Normocytic anemia Recommendations: 1. Continue to follow nephrology recommendations 2. Continue Bumex and metolazone at dosing as recommended by nephrology 3. Monitor input and output with daily weights 4. Check basic metabolic profile daily Continue telemetry? Yes
--- NOTE | 2017-10-04 11:23 | PN- Nephrology ---
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 No chronic uremic symptoms to warrant dialysis initiation (although if unable to diurese on max dose diuretics, may need to start dialysis for that reason). Has decided on PD as HD modality. Follows with Dr. Pradhan. Fluid overload - Remains volume expanded. UOP is OK although he is on very high dose diuretics. I do think in general he is getting better and we should target a discharge date of mid-week next week. He may need to start dialysis soon for volume management - will touch base with his outpatient Knowledge Manager. Anemia - On weekly Epogen and IV iron replacement. Met acidosis - On 1300mg sodium bicarb QID - at goal. Hyperphos - Improving. HTN - Controlled. Suggestion: -Cont 120mg IV lasix q8 + metolazone 10mg PO BID (give 30min prior to 2 of the lasix doses) -Cont 25% IV albumin q8 - given concurrently with IV lasix -NEEDS HIS WEIGHTS TO BE STANDING ONLY -Epogen 15,000U weekly + ferrlecit 125mg IV every other day x8 doses -OK to cont sodium bicarb 1950mg TID -Cont phos binders Please call [phone] with ?'s Subjective Subjective: SCr 6.0 2350cc UOP on current regimen Still feels like leg swelling is "out of control" Notes that weight was 280lbs prior to admit and his "dry weight" is 250 - bed weights have been as high as 327 and are currently 300 Objective Vital Signs and I&Os Vital Signs Date Time Temp Pulse Resp B/P B/P Pulse O2 O2 Flow FiO2 Mean Ox Delivery Rate 10/04 0850 136/76 10/04 0849 136/76 10/04 0800 94 Nasal 3.0L Cannula 10/04 0647 97.5 52 20 136/70 95 Room Air 10/04 0014 53 93 10/04 0000 Nasal 3.0L Cannula 10/032 97.5 53 20 168/74 90 Nasal 3.0L Cannula 10/03 2133 54 170/78 10/03 1654 56 158/66 10/03 1400 97.6 56 20 158/66 95 Intake & Output 10/04 1600 10/04 0400 10/03 1600 10/03 0400 10/02 1600 10/02 0400 Intake Total 750 500 Output Total 3804 784 9016 800 1350 750 Balance -1400 -700 -900 -800 -850 -750 Intake, IV 250 100 Intake, Oral 500 400 Number 2 1 1 2 Bowel Movements Output, Urine 7947 055 6260 800 1350 750 Patient 300 lb 299 lb 302 lb Weight Weight Bed scale Bed scale Measurement Method Physical Exam: Gen - OK appearing HEENT - supple CV - RRR, no m/r/g Chest - clear, no w/r/r Abd - soft, NTND Ext - ++edema (improved) Neuro - AOX3, grossly nonfocal Current Medications: Current Medications Sig/Jose Angel Start time Last Medication Dose Route Stop Time Status Admin Acetaminophen 1,000 MG ONCE ONE 10/03 1145 DC 10/03 IV 10/03 1146 1205 Acetaminophen 650 MG Q4P PRN 09/27 1600 AC 09/28 PO 0638 Albumin Human 25 GM Q8 10/03 1400 AC 10/04 IV 0540 Amlodipine Besylate 10 MG DAILY 09/24 0330 10/04 PO 0850 Atorvastatin Calcium 40 MG 1700 09/24 1700 AC 10/03 PO 1657 Bumetanide 4 MG Q8 10/02 1400 DC 10/03 IV 0557 Calcium Acetate 667 MG WM 09/24 1708 10/04 PO 0849 Epoetin Chu 15,000 U ONCE A WEEK 10/03 1000 10/03 PR 1052 Fenofibrate 145 MG DAILY 09/24 0900 10/04 PO 0849 Ferric Sodium 125 MG Q48 09/27 1500 AC 10/03 Gluconate Complex IV 10/11 0959 1054 Sodium Chloride 100 ML Furosemide 120 MG Q8 10/03 1400 AC 10/04 IV 0605 Heparin Sodium 5,000 UNIT Q8 09/24 06 10/04 (Porcine) SC 0539 Hydralazine HCl 25 MG FOUR TIMES A DAY 09/24 0330 10/04 PO 0849 Insulin Aspart 0 TIDAC 10/01 1200 10/04 SC 0851 Magnesium Oxide 400 MG BID 09/27 0900 10/04 PO 0850 Metaxalone 800 MG TID 09/24 09 10/04 PO 0849 Metolazone 10 MG 0530,2130 10/03 2130 10/04 PO 0539 Metolazone 10 MG BID 09/27 2100 DC 10/03 PO 1104 Metoprolol Tartrate 75 MG BID 09/24 0900 AC 10/04 PO 0849 Sevelamer Carbonate 1,600 MG WM 09/24 1711 AC 10/04 PO 0849 Sodium Bicarbonate 1,950 MG TID 09/26 1400 AC 10/04 PO 0850 Sodium Hypochlorite 1 MEI BID 09/25 1100 AC 10/04 TOP 0851 Tramadol HCl 50 MG Q8P PRN 10/01 1045 AC 10/01 PO 1215 Trazodone HCl 100 MG QPM 09/27 2100 AC 10/03 PO 2133 Results Pertinent Lab Results: Laboratory Tests 10/04 10/03 0634 0612 Chemistry Sodium (137 - 145 mmol/L) 141 143 Potassium (3.5 - 5.1 mmol/L) 4.2 4.3 Chloride (98 - 107 mmol/L) 103 107 Carbon Dioxide (22 - 30 mmol/L) 27 24 Anion Gap (5 - 16) 10 12 BUN (9 - 20 mg/dL) 79 H 73 H Creatinine (0.7 - 1.2 mg/dL) 6.0 *H 5.6 *H Estimated GFR (>60 ml/min) 10 L 10 L BUN/Creatinine Ratio (7 - 25 %) 13.2 13.0 Phosphorus (2.5 - 4.5 mg/dL) 5.5 H Magnesium (1.6 - 2.3 mg/dL) 2.3 Hematology CBC w Diff NO MAN DIFF REQ NO MAN DIFF REQ WBC (4.8 - 10.8 /CUMM) 5.5 5.5 RBC (4.70 - 6.10 /CUMM) 3.42 L 3.47 L Hgb (14.0 - 18.0 G/DL) 10.0 L 10.3 L Hct (42 - 52 %) 31.5 L 31.7 L MCV (80.0 - 94.0 FL) 92.3 91.4 MCH (27.0 - 31.0 PG) 29.3 29.7 MCHC (33.0 - 37.0 G/DL) 31.8 L 32.5 L RDW (11.5 - 14.5 %) 16.5 H 16.8 H Plt Count (130 - 400 /CUMM) 194 201 MPV (7.4 - 10.4 FL) 8.6 8.9 Gran % (42.2 - 75.2 %) 69.0 71.5 Lymphocytes % (20.5 - 51.1 %) 21.4 18.7 L Monocytes % (1.7 - 9.3 %) 9.5 H 9.5 H Eosinophils % (0 - 5 %) 0.1 0.1 Basophils % (0.0 - 2.0 %) 0 0.2 Absolute Granulocytes (1.4 - 6.5 /CUMM) 3.8 3.9 Absolute Lymphocytes (1.2 - 3.4 /CUMM) 1.2 1.0 L Absolute Monocytes (0.10 - 0.60 /CUMM) 0.5 0.5 Absolute Eosinophils (0.0 - 0.7 /CUMM) 0 0 Absolute Basophils (0.0 - 0.2 /CUMM) 0 0 06/20 0610 Chemistry Sodium (137 - 145 mmol/L) 141 Potassium (3.5 - 5.1 mmol/L) 4.3 Chloride (98 - 107 mmol/L) 107 Carbon Dioxide (22 - 30 mmol/L) 23 Anion Gap (5 - 16) 12 BUN (9 - 20 mg/dL) 71 H Creatinine (0.7 - 1.2 mg/dL) 5.3 *H Estimated GFR (>60 ml/min) 11 L BUN/Creatinine Ratio (7 - 25 %) 13.4 Phosphorus (2.5 - 4.5 mg/dL) 5.6 H Magnesium (1.6 - 2.3 mg/dL) 2.2 Hematology CBC w Diff NO MAN DIFF REQ WBC (4.8 - 10.8 /CUMM) 6.4 RBC (4.70 - 6.10 /CUMM) 3.42 L Hgb (14.0 - 18.0 G/DL) 10.1 L Hct (42 - 52 %) 31.1 L MCV (80.0 - 94.0 FL) 91.1 MCH (27.0 - 31.0 PG) 29.6 MCHC (33.0 - 37.0 G/DL) 32.6 L RDW (11.5 - 14.5 %) 17.2 H Plt Count (130 - 400 /CUMM) 204 MPV (7.4 - 10.4 FL) 8.7 Gran % (42.2 - 75.2 %) 75.0 Lymphocytes % (20.5 - 51.1 %) 14.8 L Monocytes % (1.7 - 9.3 %) 9.9 H Eosinophils % (0 - 5 %) 0 Basophils % (0.0 - 2.0 %) 0.3 Absolute Granulocytes (1.4 - 6.5 /CUMM) 4.8 Absolute Lymphocytes (1.2 - 3.4 /CUMM) 0.9 L Absolute Monocytes (0.10 - 0.60 /CUMM) 0.6 Absolute Eosinophils (0.0 - 0.7 /CUMM) 0 Absolute Basophils (0.0 - 0.2 /CUMM) 0 Imaging/Other Studies: None new
[2017-10-04 14:15] VITALS: BP 140/70
--- NOTE | 2017-10-04 14:47 | PN- Urology ---
Surgical Brief Attending Note Brief Attending Note: Pt slowly improving with further diuresis: would dc march prior to discharge when strict I and O no longer needed.
--- NOTE | 2017-10-04 15:37 | Event Note ---
Event Note Event Note: As per the nursing staff, the lasix 120 mg needs to be pushed by the MD only, as per hospital policies. Spoke to Dr. Das, who agreed to have the iv lasix infusion over piggyback bag. Discussed w/ the pharmacist, who confirmed that we could give furosemide 120 mg in 50ml saline bag, run at 4mg/hr. Also, changed the order in the system that will reflect the change from the next one. Informed the attending.
[2017-10-04 23:11] VITALS: BP 158/82
[2017-10-05 07:03] VITALS: BP 188/84
[2017-10-05 07:48] LABS: ABSOLUTE BASOPHIL COUNT 0 /CUMM (0.0-0.2); ABSOLUTE EOSINOPHIL COUNT 0.1 /CUMM (0.0-0.7); ABSOLUTE GRANULOCYTE CT 4.4 /CUMM (1.4-6.5); ABSOLUTE LYMPH COUNT 1.2 /CUMM (1.2-3.4); ABSOLUTE MONOCYTE COUNT 0.5 /CUMM (0.10-0.60); BASOPHIL % 0.3 % (0.0-2.0); EOSINOPHIL % 1.2 % (0-5); GRANULOCYTE % 71.3 % (42.2-75.2); HEMATOCRIT 34.2 % (42-52); MEAN CORPUSCULAR HGB 29.6 PG (27.0-31.0); MEAN CORPUSCULAR HGB CONC 32.3 G/DL (33.0-37.0); MEAN CORPUSCULAR VOLUME 91.9 FL (80.0-94.0); MEAN PLATELET VOLUME 8.8 FL (7.4-10.4); PLATELET COUNT 208 /CUMM (130-400); RED BLOOD CELL CT 3.72 /CUMM (4.70-6.10); WHITE BLOOD CELL COUNT 6.2 /CUMM (4.8-10.8)
--- NOTE | 2017-10-05 09:04 | PN- Housestaff ---
See Addendum Subjective Follow-up For: 1. Acute on chronic HFpEF 2. History of coronary disease, status post bypass surgery 3. Diabetes 4. CKD 5. Normocytic anemia Tele-Events Since Last Visit: Sinus bradycardia up to 40s Subjective: Seen and examined. Resting comfortably watching television does not offer any complaints. Reports improvement in shortness of breath denies chest pain palpitations dizziness or lightheadedness. Review of Systems Constitutional: Reports: see HPI. Objective Last 24 Hrs of Vital Signs/I&O Vital Signs Date Time Temp Pulse Resp B/P B/P Pulse O2 O2 Flow FiO2 Mean Ox Delivery Rate 10/05 1340 57 150/62 10/05 1219 57 164/68 10/05 0800 94 Nasal 3.0L Cannula 10/05 0713 55 190/92 10/05 0703 98.4 53 22 188/84 92 Nasal 3.0L Cannula 10/05 0013 49 94 10/05 0000 95 CPAP 10/04 2311 97.8 56 20 158/82 92 10/04 2235 77 98 10/04 2157 49 158/82 10/04 1708 130/66 10/04 1600 94 Nasal 3.0L Cannula Intake & Output 10/05 1600 10/05 0800 10/05 0000 Intake Total 525 4001 Output Total 1700 1600 1600 Balance -1700 -1075 2401 Intake, IV 125 Intake, Oral 400 4001 Number 2 1 2 Bowel Movements Output, Urine 1700 1600 1600 Patient 180 lb Weight Weight Chair scale Measurement Method Physical Exam General Appearance: Alert, Oriented X3 Cardiovascular: Normal S1, Normal S2 Lungs: Clear to Auscultation Abdomen: Normal Bowel Sounds, Soft Current Medications: Current Medications Sig/Jose Angel Start time Last Medication Dose Route Stop Time Status Admin Acetaminophen 650 MG Q4P PRN 09/27 1600 AC 09/28 PO 0638 Albumin Human 25 GM Q8 10/03 1400 AC 10/05 IV 1315 Amlodipine Besylate 10 MG DAILY 09/24 0330 AC 10/05 PO 1219 Atorvastatin Calcium 40 MG 1700 09/24 1700 AC 10/04 PO 1708 Calcium Acetate 667 MG WM 09/24 1708 AC 10/05 PO 1219 Epoetin Chu 15,000 U ONCE A WEEK 10/03 1000 AC 10/03 SC 1052 Fenofibrate 145 MG DAILY 09/24 0900 AC 10/05 PO 0952 Ferric Sodium 125 MG Q48 09/27 1500 AC 10/05 Gluconate Complex IV 10/11 0959 0953 Sodium Chloride 100 ML Furosemide 120 MG Q8 10/04 2200 CAN IV Furosemide 120 MG Q8 10/04 2200 AC 10/05 Sodium Chloride 50 ML IV 1402 Furosemide 120 MG Q8 10/04 1600 CAN Sodium Chloride 50 ML IV Furosemide 120 MG Q8 10/03 1400 DC 10/04 IV 1531 Heparin Sodium 5,000 UNIT Q8 09/24 0600 AC 10/05 (Porcine) SC 1341 Hydralazine HCl 50 MG TID 10/05 2100 AC PO Hydralazine HCl 25 MG FOUR TIMES A DAY 09/24 0330 DC 10/05 PO 1340 Insulin Aspart 0 TIDAC 10/01 1200 AC 10/04 SC 1708 Magnesium Oxide 400 MG BID 09/27 0900 AC 10/05 PO 0953 Metaxalone 800 MG TID 09/24 0900 AC 10/05 PO 1402 Metolazone 10 MG 0530,2130 10/03 2130 AC 10/05 PO 0609 Metoprolol Tartrate 50 MG BID 10/05 2100 AC PO Metoprolol Tartrate 75 MG BID 09/24 0900 DC 10/05 PO 0953 Sevelamer Carbonate 1,600 MG WM 09/24 1711 AC 10/05 PO 1219 Sodium Bicarbonate 1,950 MG TID 09/26 1400 AC 10/05 PO 1340 Sodium Hypochlorite 1 MEI BID 09/25 1100 AC 10/04 TOP 2157 Tramadol HCl 50 MG Q8P PRN 10/01 1045 AC 10/01 PO 1215 Trazodone HCl 100 MG QPM 09/27 2100 AC 10/04 PO 2153 Trimethobenzamide HCl 200 MG ONCE ONE 10/05 0800 DC IM 10/05 0801 Last 24 Hrs of Lab/[place] Results Last 24 Hrs of Labs/Mics: Laboratory Tests 10/05/17 0636: Anion Gap 12, Estimated GFR 10 L, BUN/Creatinine Ratio 14.6, Magnesium 2.3, CBC w Diff NO MAN DIFF REQ, RBC 3.72 L, MCV 91.9, MCH 29.6, MCHC 32.3 L, RDW 17.0 H, MPV 8.8, Gran % 71.3, Lymphocytes % 18.7 L, Monocytes % 8.5, Eosinophils % 1.2, Basophils % 0.3, Absolute Granulocytes 4.4, Absolute Lymphocytes 1.2, Absolute Monocytes 0.5, Absolute Eosinophils 0.1, Absolute Basophils 0 Assessment/Plan Assessment: Mr Urban is a 80-year-old man w/ a PMHx of 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 The patient is currently being treated and evaluated for following conditions 1. Stage IV/V CKD- He was aggressively being diuresed using metolazone and bumetanide, was changed to combination of metolazone and furosemide. The timing of metolazone, couldnt be done effectively. Reinforced the importance of timing of administration of metolazone 30 minutes prior to furosemide administration. Also addition of intravenous albumin every 8 hours would likely benefit. He has elevation of Sr Cr 5.4-->6.0, but would likely benefit from more diuresis. If the kidney function gets really worse, would slowly decrease the dose. Discussed with the catering cook. -Continue Epogen 15,000U weekly -Continue Ferrlecit 125mg IV every other day x8 doses. -Continue Phoslo -Strict I/Os and daily weights. -March placed 09/26/[address] Cancino. As per Dr. Cancino, March catheter could be removed, if he is not actively diuresing. Slight discharge around the march inserted area, is likey due to active diuresis. -avoid nephrotoxic meds -1300mg sodium bicarb QID -Continue Lasix 2. Acute on chronic HFpEF -strict I/0s. Please check standing daily weights. -daily accurate weights -Decrease metoprolol to 50 mg p.o. twice daily given sinus bradycardia -Increase hydralazine to 50 mg p.o. 3 times per day for additional blood pressure control 3. Type 2 DM -accuchecks -continue ISS 4. Left heel non-healing ulcer/chest furuncle -wound consult. Change dressing every third day. -Surgery consulted, recomending heat application, will continue to monitor. 5. Acute pseudo gout -ortho has been consulted. -Completed the course of prednisone. -IV tylenol for pain control. DVT ppx sc heparin/full code/ renal dialysis diet Problem List: 1. Anasarca 2. Bilateral pleural effusion Pain Ratin Pain Location: na Pain Goal: Pain 4 or less Pain Plan: prn Tomorrow's Labs & Rationales: bep
--- NOTE | 2017-10-05 13:41 | PN- Cardiology ---
Subjective Subjective: The patient is noted to have intermittent sinus bradycardia in the 40s. Blood pressure has been elevated. Shortness of breath is stable. No chest pain. No palpitations. No diaphoresis. Objective Vital Signs and I&Os Vital Signs Date Time Temp Pulse Resp B/P B/P Pulse O2 O2 Flow FiO2 Mean Ox Delivery Rate 10/05 1219 57 164/68 10/05 0800 94 Nasal 3.0L Cannula 10/05 0713 55 190/92 10/05 0703 98.4 53 22 188/84 92 Nasal 3.0L Cannula 10/05 0013 49 94 10/05 0000 95 CPAP 10/04 2311 97.8 56 20 158/82 92 10/04 2235 77 98 10/04 2157 49 158/82 10/04 1708 130/66 10/04 1600 94 Nasal 3.0L Cannula 10/04 1415 97.9 59 20 140/70 93 Nasal 3.0L Cannula Intake & Output 10/05 1600 10/05 0800 10/05 0000 10/04 1600 10/04 0800 10/04 0000 Intake Total 525 4001 500 Output Total 1600 1600 1000 1400 700 Balance -1075 2401 -500 -1400 -700 Intake, IV 125 100 Intake, Oral 400 4001 400 Number 1 2 2 2 Bowel Movements Output, Urine 1600 1600 1000 1400 700 Patient 180 lb 300 lb Weight Weight Chair scale Bed scale Measurement Method Physical Exam: General Appearance: well developed/nourished, alert, awake, oriented Head: normal HEENT: Normal Neck: supple, JVP normal, carotid upstrokes normal bilaterally, no masses or thyromegaly Respiratory: chest non-tender, clear to auscultation and percussion bilaterally Cardiovascular: regular rate/rhythm, normal S1, S2, 1-2/6 systolic murmur Abdomen: normal bowel sounds, soft, non-tender Extremities: normal inspection, 2+ edema Vascular: Pulses are 2+ and equal bilaterally Neurologic: Grossly normal/nonfocal Current Medications: Current Medications Sig/Jose Angel Start time Last Medication Dose Route Stop Time Status Admin Acetaminophen 650 MG Q4P PRN 09/27 1600 AC 09/28 PO 0638 Albumin Human 25 GM Q8 10/03 1400 AC 10/05 IV 1315 Amlodipine Besylate 10 MG DAILY 09/24 0330 AC 10/05 PO 1219 Atorvastatin Calcium 40 MG 1700 09/24 1700 AC 10/04 PO 1708 Calcium Acetate 667 MG WM 09/24 1708 10/05 PO 1219 Epoetin Chu 15,000 U ONCE A WEEK 10/03 1000 10/03 RI 1052 Fenofibrate 145 MG DAILY 09/24 0900 10/05 PO 0952 Ferric Sodium 125 MG Q48 09/27 1500 10/05 Gluconate Complex IV 10/11 0959 0953 Sodium Chloride 100 ML Furosemide 120 MG Q8 10/04 2200 CAN IV Furosemide 120 MG Q8 10/04 2200 AC 10/05 Sodium Chloride 50 ML IV 0648 Furosemide 120 MG Q8 10/04 1600 CAN Sodium Chloride 50 ML IV Furosemide 120 MG Q8 10/03 1400 DC 10/04 IV 1531 Heparin Sodium 5,000 UNIT Q8 09/24 0600 10/05 (Porcine) SC 0609 Hydralazine HCl 25 MG FOUR TIMES A DAY 09/24 0330 10/05 PO 0713 Insulin Aspart 0 TIDAC 10/01 1200 10/04 RI 1708 Magnesium Oxide 400 MG BID 09/27 0900 10/05 PO 0953 Metaxalone 800 MG TID 09/24 0900 10/05 PO 0954 Metolazone 10 MG 0530,2130 10/03 2130 10/05 PO 0609 Metoprolol Tartrate 75 MG BID 09/24 0900 10/05 PO 0953 Sevelamer Carbonate 1,600 MG WM 09/24 1711 10/05 PO 1219 Sodium Bicarbonate 1,950 MG TID 09/26 1400 10/05 PO 0952 Sodium Hypochlorite 1 MEI BID 09/25 1100 10/04 TOP 2157 Tramadol HCl 50 MG Q8P PRN 10/01 1045 10/01 PO 1215 Trazodone HCl 100 MG QPM 09/27 2100 10/04 PO 2153 Trimethobenzamide HCl 200 MG ONCE ONE 10/05 0800 DC IM 10/05 0801 Results Last 48 Hrs of Labs/Mics: Laboratory Tests 10/05/17 0636: Anion Gap 12, Estimated GFR 10 L, BUN/Creatinine Ratio 14.6, Magnesium 2.3, CBC w Diff NO MAN DIFF REQ, RBC 3.72 L, MCV 91.9, MCH 29.6, MCHC 32.3 L, RDW 17.0 H, MPV 8.8, Gran % 71.3, Lymphocytes % 18.7 L, Monocytes % 8.5, Eosinophils % 1.2, Basophils % 0.3, Absolute Granulocytes 4.4, Absolute Lymphocytes 1.2, Absolute Monocytes 0.5, Absolute Eosinophils 0.1, Absolute Basophils 0 10/04/17 0634: Anion Gap 10, Estimated GFR 10 L, BUN/Creatinine Ratio 13.2, CBC w Diff NO MAN DIFF REQ, RBC 3.42 L, MCV 92.3, MCH 29.3, MCHC 31.8 L, RDW 16.5 H, MPV 8.6, Gran % 69.0, Lymphocytes % 21.4, Monocytes % 9.5 H, Eosinophils % 0.1, Basophils % 0, Absolute Granulocytes 3.8, Absolute Lymphocytes 1.2, Absolute Monocytes 0.5, Absolute Eosinophils 0, Absolute Basophils 0 Assessment/Plan Assessment/Plan Assessment: 1. Acute on chronic HFpEF 2. History of coronary disease, status post bypass surgery 3. Diabetes 4. CKD 5. Normocytic anemia Recommendations: 1. Continue to follow nephrology recommendations 2. Continue Lasix at dosing as recommended by nephrology 3. Monitor input and output with daily weights 4. Check basic metabolic profile daily 5. Decrease metoprolol to 50 mg p.o. twice daily given sinus bradycardia 6. Increase hydralazine to 50 mg p.o. 3 times per day for additional blood pressure control Continue telemetry? Yes
[2017-10-05 14:00] VITALS: BP 168/80
[2017-10-05 21:45] VITALS: BP 148/64
[2017-10-06 06:30] VITALS: BP 160/62
[2017-10-06 08:27] LABS: ABSOLUTE BASOPHIL COUNT 0 /CUMM (0.0-0.2); ABSOLUTE EOSINOPHIL COUNT 0.1 /CUMM (0.0-0.7); ABSOLUTE GRANULOCYTE CT 5.4 /CUMM (1.4-6.5); ABSOLUTE LYMPH COUNT 1.1 /CUMM (1.2-3.4); ABSOLUTE MONOCYTE COUNT 0.6 /CUMM (0.10-0.60); BASOPHIL % 0 % (0.0-2.0); EOSINOPHIL % 0.7 % (0-5); GRANULOCYTE % 76.1 % (42.2-75.2); HEMATOCRIT 30.9 % (42-52); MEAN CORPUSCULAR HGB 29.3 PG (27.0-31.0); MEAN CORPUSCULAR VOLUME 91.6 FL (80.0-94.0); MEAN PLATELET VOLUME 8.7 FL (7.4-10.4); PLATELET COUNT 169 /CUMM (130-400); RBC DISTRIBUTION WIDTH 16.6 % (11.5-14.5); RED BLOOD CELL CT 3.37 /CUMM (4.70-6.10); WHITE BLOOD CELL COUNT 7.1 /CUMM (4.8-10.8)
--- NOTE | 2017-10-06 08:29 | PN- Housestaff ---
Dariusz CASEY,Angelia 10/06/17 0828: Subjective Follow-up For: 1. Acute on chronic HFpEF 2. History of coronary disease, status post bypass surgery 3. Diabetes 4. CKD 5. Normocytic anemia Tele-Events Since Last Visit: Sinus bradycardia, 5258, QRS 0.08, [place] 0.18, PVCS at 4 AM junctional beats Subjective: Patient is seen and examined, denies any complaints vital signs show blood pressure 154/70, otherwise stable, no overnight events, creatinine slightly increased to 5.9, diuresing on Lasix with fluid balance of -1546, heart rate stable after decreasing the metoprolol dose yesterday Review of Systems Constitutional: Reports: see HPI. Objective Last 24 Hrs of Vital Signs/I&O Vital Signs Date Time Temp Pulse Resp B/P B/P Pulse O2 O2 Flow FiO2 Mean Ox Delivery Rate 10/06 0911 154/70 10/06 0911 65 154/70 10/06 0911 65 154/70 10/06 0800 95 Nasal 3.0L Cannula 10/06 0630 98.3 60 22 160/62 95 10/06 0319 58 10/06 0019 57 95 10/06 0000 Nasal 3.0L Cannula 10/05 2302 71 92 10/05 2145 98.4 56 22 148/64 93 Room Air 10/05 2124 60 148/64 10/05 2124 60 148/64 10/05 1616 94 Nasal 3.0L Cannula 10/05 1400 98.0 59 20 168/80 93 10/05 1340 57 150/62 10/05 1219 57 164/68 Intake & Output 10/06 1600 10/06 0800 10/06 0000 Intake Total 254 470 Output Total 1800 1250 Balance -1546 -780 Intake, IV 134 110 Intake, Oral 120 360 Output, Urine 1800 1250 Patient 286 lb Weight Physical Exam General Appearance: Alert, Oriented X3, Cooperative, No Acute Distress Cardiovascular: Normal S1, Normal S2 Lungs: Clear to Auscultation Extremities: 2+ PITTING EDEMA IN BOTH le Assessment/Plan Assessment: Mr Urban is a 80-year-old man w/ a PMHx of 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 The patient is currently being treated and evaluated for following conditions 1. Stage IV/V CKD- He was aggressively being diuresed using metolazone and bumetanide, was changed to combination of metolazone and furosemide. The timing of metolazone, couldnt be done effectively. Reinforced the importance of timing of administration of metolazone 30 minutes prior to furosemide administration. Also addition of intravenous albumin every 8 hours would likely benefit. He has elevation of Sr Cr 5.7---->5.9, but would likely benefit from more diuresis. If the kidney function gets really worse, would slowly decrease the dose. Discussed with the ballistics teacher. -Continue Epogen 15,000U weekly -Continue Ferrlecit 125mg IV every other day x8 doses. -Continue Phoslo -Strict I/Os and daily weights. -March placed 09/26/[address] Cancino. As per Dr. Cancino, March catheter could be removed, if he is not actively diuresing. Slight discharge around the march inserted area, is likey due to active diuresis. -avoid nephrotoxic meds -1300mg sodium bicarb QID -Continue Lasix 2. Acute on chronic HFpEF -strict I/0s. Please check standing daily weights. -daily accurate weights -Continue metoprolol to 50 mg p.o. twice daily given sinus bradycardia -Continue hydralazine to 50 mg p.o. 3 times per day for additional blood pressure control 3. Type 2 DM -accuchecks -continue ISS 4. Left heel non-healing ulcer/chest furuncle -wound consult. Change dressing every third day. -Surgery consulted, recomending heat application, will continue to monitor. 5. Acute pseudo gout -ortho has been consulted. -Completed the course of prednisone. -IV tylenol for pain control. DVT ppx sc heparin/full code/ renal dialysis diet Problem List: 1. Anasarca 2. Bilateral pleural effusion Pain Ratin Pain Location: n/a Pain Goal: Remain pain free Pain Plan: PATHWAY Tomorrow's Labs & Rationales: BEP Katie Milner MD 10/06/17 1454: Attending MD Review Statement Attending Statement Attending MD Statement: examined this patient, discuss w/resident/PA/SEAMING INSPECTOR, agreed w/resident/PA/SEAMING INSPECTOR, reviewed EMR data (avail) Attending Assessment/Plan: 61M PMH CKD, HTN, DM, CAD S/P DE S/P CABG 2006, BPH, left foot ulcer followed by osteomyelitis S/P debridement now chronic ulcer, S/P gastric bypass, chronic low back pain admitted for anasarca in the setting of acute CHF. Patient has diuresed several liters since admission. Today patient has no complaints. He reports his arms are close to baseline, but his legs are still edematous. He has an open draining abscess on his chest that is giving him mild discomfort. Creatinine is stable, BP stable, I/O -2855 yesterday, no telemetry events. 1. Anasarca 2. Acute on chronic systolic CHF 3. Progression of CKD stage V secondary to hypertensive and diabetic nephropathy 4. Chest wall abscess 5. Chronic left foot non-healing ulcer Plan - Continue on telemetry - Continue Lasix, Metolazone, albumin - I/O, daily weights - Bactroban for chest abscess - Wound care for leg and chest - Follow cardiology and nephrology recommendations - Continue home medications - DVT PPx
--- NOTE | 2017-10-06 12:15 | PN- Cardiology ---
Subjective Subjective: Feeling well. No chest pain. No palpitations. No diaphoresis. Telemetry reveals sinus rhythm in the 60s per Objective Vital Signs and I&Os Vital Signs Date Time Temp Pulse Resp B/P B/P Pulse O2 O2 Flow FiO2 Mean Ox Delivery Rate 10/06 0911 154/70 10/06 0911 65 154/70 10/06 0911 65 154/70 10/06 0800 95 Nasal 3.0L Cannula 10/06 0630 98.3 60 22 160/62 95 10/06 0319 58 10/06 0019 57 95 10/06 0000 Nasal 3.0L Cannula 10/05 2302 71 92 10/05 2145 98.4 56 22 148/64 93 Room Air 10/05 2124 60 148/64 10/05 2124 60 148/64 10/05 1616 94 Nasal 3.0L Cannula 10/05 1400 98.0 59 20 168/80 93 10/05 1340 57 150/62 10/05 1219 57 164/68 Intake & Output 10/06 1600 10/06 0800 10/06 0000 10/05 1600 10/05 0800 10/05 0000 Intake Total 254 470 644 233 8506 Output Total 1800 1250 1700 1600 1600 Balance -1546 -780 -1000 -1075 2401 Intake, IV 134 110 300 125 Intake, Oral 120 360 330 111 7873 Number 3 1 2 Bowel Movements Output, Urine 1800 1250 1700 1600 1600 Patient 286 lb 180 lb Weight Weight Chair scale Measurement Method Physical Exam: General Appearance: well developed/nourished, alert, awake, oriented Head: normal HEENT: Normal Neck: supple, JVP normal, carotid upstrokes normal bilaterally, no masses or thyromegaly Respiratory: chest non-tender, clear to auscultation and percussion bilaterally Cardiovascular: regular rate/rhythm, normal S1, S2, 1-2/6 systolic murmur Abdomen: normal bowel sounds, soft, non-tender Extremities: normal inspection, 2+ edema Vascular: Pulses are 2+ and equal bilaterally Neurologic: Grossly normal/nonfocal Current Medications: Current Medications Sig/Jose Angel Start time Last Medication Dose Route Stop Time Status Admin Acetaminophen 650 MG Q4P PRN 09/27 1600 AC 09/28 PO 0638 Albumin Human 25 GM Q8 10/03 1400 AC 10/06 IV 0512 Amlodipine Besylate 10 MG DAILY 09/24 0330 AC 10/06 PO 0911 Atorvastatin Calcium 40 MG 1700 09/24 1700 AC 10/05 PO 1659 Calcium Acetate 667 MG WM 09/24 1708 AC 10/06 PO 1143 Epoetin Chu 15,000 U ONCE A WEEK 10/03 1000 10/03 [place] 1052 Fenofibrate 145 MG DAILY 09/24 0900 AC 10/06 PO 0910 Ferric Sodium 125 MG Q48 09/27 1500 AC 10/05 Gluconate Complex IV 10/11 0959 0953 Sodium Chloride 100 ML Furosemide 120 MG Q8 10/04 2200 AC 10/06 Sodium Chloride 50 ML IV 0557 Heparin Sodium 5,000 UNIT Q8 09/24 0600 AC 10/06 (Porcine) SC 0513 Hydralazine HCl 50 MG TID 10/05 2100 10/06 PO 0911 Hydralazine HCl 25 MG FOUR TIMES A DAY 09/24 0330 ID 10/05 PO 1340 Insulin Aspart 0 TIDAC 10/01 1200 10/05 [place] 1659 Magnesium Oxide 400 MG BID 09/27 0900 10/06 PO 0910 Metaxalone 800 MG TID 09/24 0900 10/06 PO 0908 Metolazone 10 MG 0530,2130 10/03 2130 AC 10/06 PO 0513 Metoprolol Tartrate 50 MG BID 10/05 2100 10/06 PO 0911 Metoprolol Tartrate 75 MG BID 09/24 0900 ID 10/05 PO 0953 Sevelamer Carbonate 1,600 MG WM 09/24 1711 10/06 PO 1143 Sodium Bicarbonate 1,950 MG TID 09/26 1400 10/06 PO 0909 Sodium Hypochlorite 1 MEI BID 09/25 1100 10/04 [facility] 2157 Tramadol HCl 50 MG Q8P PRN 10/01 1045 AC 10/01 PO 1215 Trazodone HCl 100 MG QPM 09/27 2100 AC 10/05 PO 2124 Results Last 48 Hrs of Labs/Mics: Laboratory Tests 10/06/17 0740: Anion Gap 12, Estimated GFR 10 L, BUN/Creatinine Ratio 13.4, CBC w Diff NO MAN DIFF REQ, RBC 3.37 L, MCV 91.6, MCH 29.3, MCHC 32.0 L, RDW 16.6 H, MPV 8.7, Gran % 76.1 H, Lymphocytes % 15.2 L, Monocytes % 8.0, Eosinophils % 0.7, Basophils % 0, Absolute Granulocytes 5.4, Absolute Lymphocytes 1.1 L, Absolute Monocytes 0.6, Absolute Eosinophils 0.1, Absolute Basophils 0 10/05/17 0636: Anion Gap 12, Estimated GFR 10 L, BUN/Creatinine Ratio 14.6, Magnesium 2.3, CBC w Diff NO MAN DIFF REQ, RBC 3.72 L, MCV 91.9, MCH 29.6, MCHC 32.3 L, RDW 17.0 H, MPV 8.8, Gran % 71.3, Lymphocytes % 18.7 L, Monocytes % 8.5, Eosinophils % 1.2, Basophils % 0.3, Absolute Granulocytes 4.4, Absolute Lymphocytes 1.2, Absolute Monocytes 0.5, Absolute Eosinophils 0.1, Absolute Basophils 0 Assessment/Plan Assessment/Plan Assessment: 1. Acute on chronic HFpEF 2. History of coronary disease, status post bypass surgery 3. Diabetes 4. CKD 5. Normocytic anemia Recommendations: 1. Continue to follow nephrology recommendations 2. Continue Lasix at dosing as recommended by nephrology 3. Monitor input and output with daily weights 4. Check basic metabolic profile daily 5. Increase hydralazine to 50 mg p.o. 4 times per day for additional blood pressure control Continue telemetry? Yes
[2017-10-06 14:00] VITALS: BP 162/60
[2017-10-06 22:03] VITALS: BP 140/62
[2017-10-07 06:47] VITALS: BP 156/74
--- NOTE | 2017-10-07 07:17 | PN- Housestaff ---
Renard Zuniga 10/07/17 0716: Subjective Follow-up For: 1. Acute on chronic HFpEF 2. History of coronary disease, status post bypass surgery 3. Diabetes 4. CKD 5. Normocytic anemia Complaints: no complaints Tele-Events Since Last Visit: NSR, HR 58-62. No overnight tele events. Subjective: He was comfortable this morning. No new concerns, but stated that he feels tired. No shortness of breath, chest pain or palpitations. Vitals stable overnight. Currently being diuresed, with urine output around 3-4L. Review of Systems Constitutional: Reports: see HPI. Objective Last 24 Hrs of Vital Signs/I&O Vital Signs Date Time Temp Pulse Resp B/P B/P Pulse O2 O2 Flow FiO2 Mean Ox Delivery Rate 10/07 0647 98.8 64 20 156/74 91 Nasal Cannula 10/07 0042 56 92 10/07 0000 Nasal 3.0L Cannula 10/06 2208 58 140/62 10/06 2203 98.7 58 20 140/62 93 Nasal 2.0L Cannula 10/06 2151 58 91 10/06 2111 61 140/62 10/06 1709 62 152/78 10/06 1600 95 Nasal 3.0L Cannula 10/06 1400 98.3 65 20 162/60 92 Nasal 2.0L Cannula 10/06 1326 63 156/60 10/06 0911 154/70 10/06 0911 65 154/70 10/06 0911 65 154/70 10/06 0800 95 Nasal 3.0L Cannula Intake & Output 10/07 0800 10/07 0000 10/06 1600 Intake Total 300 300 550 Output Total 1900 1000 1350 Balance -1600 -700 -800 Intake, IV 150 Intake, Oral 300 300 400 Number 1 Bowel Movements Output, Urine 1900 1000 1350 Patient 283 lb Weight Weight Bed scale Measurement Method Physical Exam General Appearance: No Acute Distress Other Physical Findings: General Exam: AAOx3, mild distress, appears dyspneic while he was speaking, Skin: No rashes, no breakdown, erythematous elevate; HEENT: PERRLA, EOMI;Neck: Supple, No JVD; No cervical lymphadenopathy; CVS: Reg Rate, Normal S1,S2, No MGR ; Resp: decreased air entry, no ronchi/rales;Abdomen: Soft, No tenderness, Normal Bowel Sounds;Neuro: Normal Speech, Strength 5/5 b/l x 4 extremities, Sensation intact, CN III-XII NL, Reflexes 2+; Extremities: No cyanosis, 2 + pedal edema, ? claire bandage on the left foot in place, and couldnt examine; bandage is changed three days every week. Doesnt appear to have any discharge. Skin on the chest wall has a small ulcer, with size [id number], serous drainage. Current Medications: Current Medications Sig/Jose Angel Start time Last Medication Dose Route Stop Time Status Admin Acetaminophen 650 MG .STK-MED ONE 10/06 1816 DC PO 10/06 181 Acetaminophen 650 MG Q4P PRN 09/27 1600 AC 10/06 PO 1818 Albumin Human 25 GM Q8 10/03 1400 AC 10/07 IV 0514 Amlodipine Besylate 10 MG DAILY 09/24 0330 AC 10/06 PO 0911 Atorvastatin Calcium 40 MG 1700 09/24 1700 AC 10/06 PO 1620 Calcium Acetate 667 MG WM 09/24 1708 AC 10/06 PO 1620 Epoetin Chu 15,000 U ONCE A WEEK 10/03 1000 AC 10/03 [place] 1052 Fenofibrate 145 MG DAILY 09/24 0900 AC 10/06 PO 0910 Ferric Sodium 125 MG Q48 09/27 1500 AC 10/05 Gluconate Complex IV 10/11 0959 0953 Sodium Chloride 100 ML Furosemide 120 MG Q8 10/04 2200 AC 10/07 Sodium Chloride 50 ML IV 0618 Heparin Sodium 5,000 UNIT Q8 09/24 0600 AC 10/07 (Porcine) SC 0514 Hydralazine HCl 50 MG 0600,1200,1800,2300 10/06 1800 AC 10/07 PO 0520 Hydralazine HCl 50 MG TID 10/05 2100 DC 10/06 PO 1326 Insulin Aspart 0 TIDAC 10/01 1200 AC 10/06 SC 1650 Magnesium Oxide 400 MG BID 09/27 0900 AC 10/06 PO 2112 Metaxalone 800 MG TID 09/24 0900 AC 10/06 PO 2111 Metolazone 10 MG 0530,2130 10/03 2130 AC 10/07 PO 0513 Metoprolol Tartrate 50 MG BID 10/05 2100 AC 10/06 PO 2111 Mupirocin 1 MEI TID 10/06 1540 AC 10/06 TOP 2121 Sevelamer Carbonate 1,600 MG WM 09/24 1711 AC 10/06 PO 1620 Sodium Bicarbonate 1,950 MG TID 09/26 1400 AC 10/06 PO 211 Sodium Hypochlorite 1 MEI BID 09/25 1100 AC 10/04 TOP 2157 Tramadol HCl 50 MG Q8P PRN 10/01 1045 AC 10/06 PO 211 Trazodone HCl 100 MG QPM 09/27 2100 AC 10/06 PO 211 Last 24 Hrs of Lab/[place] Results Last 24 Hrs of Labs/Mics: Laboratory Tests 10/07/17 0634: Sodium Pending, Potassium Pending, Chloride Pending, Carbon Dioxide Pending, Anion Gap Pending, BUN Pending, Creatinine Pending, BUN/Creatinine Ratio Pending , CBC w Diff Pending, WBC Pending, RBC Pending, Hgb Pending, Hct Pending, MCV Pending, MCH Pending, MCHC Pending, RDW Pending, Plt Count Pending, MPV Pending 10/06/17 0740: Anion Gap 12, Estimated GFR 10 L, BUN/Creatinine Ratio 13.4, CBC w Diff NO MAN DIFF REQ, RBC 3.37 L, MCV 91.6, MCH 29.3, MCHC 32.0 L, RDW 16.6 H, MPV 8.7, Gran % 76.1 H, Lymphocytes % 15.2 L, Monocytes % 8.0, Eosinophils % 0.7, Basophils % 0, Absolute Granulocytes 5.4, Absolute Lymphocytes 1.1 L, Absolute Monocytes 0.6, Absolute Eosinophils 0.1, Absolute Basophils 0 Assessment/Plan Assessment: Mr Urban is a 80-year-old man w/ a PMHx of 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 Pertinent lab findings: WBC 9.4, hemoglobin 9.9-->10.3, platelets 181 Sodium 141, potassium 4.4, bicarbonate 22, anion gap 12 BUN 57 (09/23/2017)-->79(10/07/2017) Sr Cr 5.0 (09/23/2017)-->5.9(10/07/2017) Phos 7.3 (09/23/2017)--> 6.3 (10/01/2017)-->5.5(10/03/2017) Mg 1.7 (09/23/2017)--> 2.4 (10/07/2017) HCO3 32 (10/07/2017) likely contraction alkalosis. ProBNP 26265 Troponin 0.01,0.01 Liver chemistries-AST 20, ALT 19, alkaline phosphatase 111, albumin 2.9 Urinalysis revealed urine protein greater than 100, ULE small, WBC 5-10. Etiology in his case is likely diabetic nephropathy, and other causes such as obesity induced FSG or obstructive nephropathy. He is clearly in volume overload , and unsure if the pt couldnt diurese in the past on his current diuretics/ diuretic resistance. Serum creatinine is stable at this time, and would have to continue diuresis with up to 4 L per day of fluid. If unable to diurese adequately, would have to start hemodialysis. Urine output in the last 24 hrs 4 L. Below is the plan: 1. Stage IV/V CKD- He was being diuresed using metolazone and bumetanide, was changed to combination of metolazone and furosemide, to make sure that he is adequately diuresed. As per the sales account coordinator, Albumin was discontinued. Continue Epogen 15,000U weekly Continue Ferrlecit 125mg IV every other day x8 doses. Continue Phoslo Strict I/Os and daily weights. March placed 09/26/[address] Cancino. As per Dr. Cancino, March catheter could be removed, if he is not actively diuresing. Slight discharge around the march inserted area, is likey due to active diuresis. avoid nephrotoxic meds 1300mg sodium bicarb QID Check Chest x ray to evaluate diuresis, as per the sales account coordinator. Replenish potassium. 2. Acute on chronic HFpEF strict I/0s. Please check standing daily weights. The daily weights recorded, dont appear to have a pattern. daily accurate weights continue metoprolol 3. Type 2 DM accuchecks continue ISS 4. Left heel non-healing ulcer/chest furuncle wound consult. Change dressing every third day. Surgery consulted, recomending heat application, will continue to monitor. 5. Acute pseudo gout Orthopedic surgeon was consulted. Completed the course of prednisone. IV tylenol for pain control. DVT ppx sc heparin full code renal dialysis diet Problem List: 1. Diabetes 2. Bilateral pleural effusion 3. Anasarca Pain Ratin Pain Location: back Pain Goal: Pain 4 or less Pain Plan: tylenol Tomorrow's Labs & Rationales: cbc bep Rebecca Geiger 10/07/17 1120: Attending MD Review Statement Attending Statement Attending MD Statement: examined this patient, discuss w/resident/PA/HOT TAMALE MAN, agreed w/resident/PA/HOT TAMALE MAN, discussed with family, reviewed EMR data (avail), discussed with nursing, discussed with case mgmt, reviewed images, amended to note Attending Assessment/Plan: Patient seen/examined bedside. Patient denies any new complaints. Negative balance with good urine output. Nephrology following, continue diuretics lasix intravenous alongwith metalozone as per nephrology. Obtain chest xray to follow up for pleural effusions. Obtain Right upper extremity USG for swelling rule out DVT. Elevate upper extremity. He also receiving iv iron every other day for anemia of chronic disease. Continue local ointment for chest lesion. PT eval for STR placement. OOB to chair. Cont current care. gi/dvt prophyalxis full code
[2017-10-07 07:53] LABS: ABSOLUTE BASOPHIL COUNT 0 /CUMM (0.0-0.2); ABSOLUTE EOSINOPHIL COUNT 0.1 /CUMM (0.0-0.7); ABSOLUTE GRANULOCYTE CT 5.1 /CUMM (1.4-6.5); ABSOLUTE MONOCYTE COUNT 0.6 /CUMM (0.10-0.60); BASOPHIL % 0.1 % (0.0-2.0); EOSINOPHIL % 0.8 % (0-5); GRANULOCYTE % 75.1 % (42.2-75.2); HEMATOCRIT 29.8 % (42-52); MEAN CORPUSCULAR HGB 29.9 PG (27.0-31.0); MEAN CORPUSCULAR HGB CONC 32.1 G/DL (33.0-37.0); MEAN CORPUSCULAR VOLUME 93.3 FL (80.0-94.0); MEAN PLATELET VOLUME 8.6 FL (7.4-10.4); PLATELET COUNT 157 /CUMM (130-400); RBC DISTRIBUTION WIDTH 16.9 % (11.5-14.5); RED BLOOD CELL CT 3.19 /CUMM (4.70-6.10); WHITE BLOOD CELL COUNT 6.8 /CUMM (4.8-10.8)
--- NOTE | 2017-10-07 09:51 | PN- Nephrology ---
Assessment/Plan Nephrology Assessment: 1. 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 Volume overload: improving w hi dose diuretics 3. Anemia: CAITLIN & IV Fe Suggestion: 1. continue Lasix & metolazone today 2. supplement K po 3. recheck Mg 4. d/c SP Alb 5. recheck CXR Subjective Subjective: No SOB No uremic sx Diuresing w > 4 liter out/day last several days Objective Vital Signs and I&Os Vital Signs Date Time Temp Pulse Resp B/P B/P Pulse O2 O2 Flow FiO2 Mean Ox Delivery Rate 10/07 0800 96 Nasal 3.0L Cannula 10/07 0752 65 150/76 10/07 0751 65 150/72 10/07 0647 98.8 64 20 156/74 91 Nasal Cannula 10/07 0042 56 92 10/07 0000 Nasal 3.0L Cannula 10/06 2208 58 140/62 10/06 2203 98.7 58 20 140/62 93 Nasal 2.0L Cannula 10/06 2151 58 91 10/06 2111 61 140/62 10/06 1709 62 152/78 10/06 1600 95 Nasal 3.0L Cannula 10/06 1400 98.3 65 20 162/60 92 Nasal 2.0L Cannula 10/06 1326 63 156/60 Intake & Output 10/07 1600 10/07 0400 10/06 1600 10/06 0400 10/05 1600 10/05 0400 Intake Total 300 300 579 822 3227 4001 Output Total 1900 1000 3150 1250 3300 1600 Balance -1600 -700 -2346 -780 -5 2401 Intake, IV 284 110 425 Intake, Oral 300 300 520 226 629 1888 Number 1 4 2 Bowel Movements Output, Urine 1900 1000 3150 1250 3300 1600 Patient 283 lb 286 lb 180 lb Weight Weight Bed scale Chair scale Measurement Method Physical Exam General Appearance: well developed/nourished, no apparent distress, alert Head: normal appearance Ears, Nose, Throat: normal ENT inspection Neck: normal inspection Respiratory: no respiratory distress, quiet respiration, decreased breath sounds (Right) Cardiovascular: regular rate/rhythm, friction rub (none) Extremities: swelling Neurologic/Psychiatric: awake, alert Skin: tatoos Lymphatic: no anterior cervical ashlyn Current Medications: Current Medications Sig/Jose Angel Start time Last Medication Dose Route Stop Time Status Admin Acetaminophen 650 MG .STK-MED ONE 10/06 1817 DC PO 10/06 1818 Acetaminophen 650 MG Q4P PRN 09/27 1600 AC 10/06 PO 1818 Albumin Human 25 GM Q8 10/03 1400 AC 10/07 IV 0514 Amlodipine Besylate 10 MG DAILY 09/24 0330 AC 10/07 PO 0751 Atorvastatin Calcium 40 MG 1700 09/24 1700 AC 10/06 PO 1620 Calcium Acetate 667 MG WM 09/24 1708 AC 10/07 PO 0751 Epoetin Chu 15,000 U ONCE A WEEK 10/03 1000 10/03 SC 1052 Fenofibrate 145 MG DAILY 09/24 0900 AC 10/07 PO 0750 Ferric Sodium 125 MG Q48 09/27 1500 AC 10/07 Gluconate Complex IV 10/11 0959 0903 Sodium Chloride 100 ML Furosemide 120 MG Q8 10/04 2200 AC 10/07 Sodium Chloride 50 ML IV 0618 Heparin Sodium 5,000 UNIT Q8 09/24 0600 10/07 (Porcine) SC 0514 Hydralazine HCl 50 MG 0600,1200,1800,2300 10/06 1800 10/07 PO 0520 Hydralazine HCl 50 MG TID 10/05 2100 NH 10/06 PO 1326 Insulin Aspart 0 TIDAC 10/01 1200 10/06 SC 1650 Magnesium Oxide 400 MG BID 09/27 0900 AC 10/07 PO 0751 Metaxalone 800 MG TID 09/24 0900 10/07 PO 0752 Metolazone 10 MG 0530,2130 10/03 2130 10/07 PO 0513 Metoprolol Tartrate 50 MG BID 10/05 2100 AC 10/07 PO 0752 Mupirocin 1 MEI TID 10/06 1540 10/07 TOP 0758 Sevelamer Carbonate 1,600 MG WM 09/24 1711 AC 10/07 PO 0751 Sodium Bicarbonate 1,950 MG TID 09/26 1400 AC 10/07 PO 0750 Sodium Hypochlorite 1 MEI BID 09/25 1100 AC 10/07 TOP 0758 Tramadol HCl 50 MG Q8P PRN 10/01 1045 AC 10/06 PO 2111 Trazodone HCl 100 MG QPM 09/27 2100 AC 10/06 PO 211 Results Pertinent Lab Results: Laboratory Tests 10/07 10/06 0634 0740 Chemistry Sodium (137 - 145 mmol/L) 143 144 Potassium (3.5 - 5.1 mmol/L) 3.5 3.8 Chloride (98 - 107 mmol/L) 98 102 Carbon Dioxide (22 - 30 mmol/L) 32 H 30 Anion Gap (5 - 16) 13 12 BUN (9 - 20 mg/dL) 79 H 79 H Creatinine (0.7 - 1.2 mg/dL) 5.9 *H 5.9 *H Estimated GFR (>60 ml/min) 10 L 10 L BUN/Creatinine Ratio (7 - 25 %) 13.4 13.4 Hematology CBC w Diff NO MAN DIFF REQ NO MAN DIFF REQ WBC (4.8 - 10.8 /CUMM) 6.8 7.1 RBC (4.70 - 6.10 /CUMM) 3.19 L 3.37 L Hgb (14.0 - 18.0 G/DL) 9.6 L 9.9 L Hct (42 - 52 %) 29.8 L 30.9 L MCV (80.0 - 94.0 FL) 93.3 91.6 MCH (27.0 - 31.0 PG) 29.9 29.3 MCHC (33.0 - 37.0 G/DL) 32.1 L 32.0 L RDW (11.5 - 14.5 %) 16.9 H 16.6 H Plt Count (130 - 400 /CUMM) 157 169 MPV (7.4 - 10.4 FL) 8.6 8.7 Gran % (42.2 - 75.2 %) 75.1 76.1 H Lymphocytes % (20.5 - 51.1 %) 14.7 L 15.2 L Monocytes % (1.7 - 9.3 %) 9.3 8.0 Eosinophils % (0 - 5 %) 0.8 0.7 Basophils % (0.0 - 2.0 %) 0.1 0 Absolute Granulocytes (1.4 - 6.5 /CUMM) 5.1 5.4 Absolute Lymphocytes (1.2 - 3.4 /CUMM) 1.0 L 1.1 L Absolute Monocytes (0.10 - 0.60 /CUMM) 0.6 0.6 Absolute Eosinophils (0.0 - 0.7 /CUMM) 0.1 0.1 Absolute Basophils (0.0 - 0.2 /CUMM) 0 0 10/05 0636 Chemistry Sodium (137 - 145 mmol/L) 142 Potassium (3.5 - 5.1 mmol/L) 4.1 Chloride (98 - 107 mmol/L) 103 Carbon Dioxide (22 - 30 mmol/L) 27 Anion Gap (5 - 16) 12 BUN (9 - 20 mg/dL) 83 H Creatinine (0.7 - 1.2 mg/dL) 5.7 *H Estimated GFR (>60 ml/min) 10 L BUN/Creatinine Ratio (7 - 25 %) 14.6 Magnesium (1.6 - 2.3 mg/dL) 2.3 Hematology CBC w Diff NO MAN DIFF REQ WBC (4.8 - 10.8 /CUMM) 6.2 RBC (4.70 - 6.10 /CUMM) 3.72 L Hgb (14.0 - 18.0 G/DL) 11.0 L Hct (42 - 52 %) 34.2 L MCV (80.0 - 94.0 FL) 91.9 MCH (27.0 - 31.0 PG) 29.6 MCHC (33.0 - 37.0 G/DL) 32.3 L RDW (11.5 - 14.5 %) 17.0 H Plt Count (130 - 400 /CUMM) 208 MPV (7.4 - 10.4 FL) 8.8 Gran % (42.2 - 75.2 %) 71.3 Lymphocytes % (20.5 - 51.1 %) 18.7 L Monocytes % (1.7 - 9.3 %) 8.5 Eosinophils % (0 - 5 %) 1.2 Basophils % (0.0 - 2.0 %) 0.3 Absolute Granulocytes (1.4 - 6.5 /CUMM) 4.4 Absolute Lymphocytes (1.2 - 3.4 /CUMM) 1.2 Absolute Monocytes (0.10 - 0.60 /CUMM) 0.5 Absolute Eosinophils (0.0 - 0.7 /CUMM) 0.1 Absolute Basophils (0.0 - 0.2 /CUMM) 0 Imaging/Other Studies: CXR 09/29/17: Stable cardiomegaly with mild interstitial prominence likely retail field representative of mild vascular congestion. Bilateral pleural effusions with associated bibasilar airspace disease.
--- NOTE | 2017-10-07 10:44 | PN- Cardiology ---
Subjective Subjective: Feeling well. Shortness of breath is improving. No chest pain. No palpitations. No diaphoresis. No nausea or vomiting. Objective Vital Signs and I&Os Vital Signs Date Time Temp Pulse Resp B/P B/P Pulse O2 O2 Flow FiO2 Mean Ox Delivery Rate 10/07 0800 96 Nasal 3.0L Cannula 10/07 0752 65 150/76 10/07 0751 65 150/72 10/07 0647 98.8 64 20 156/74 91 Nasal Cannula 10/07 0042 56 92 10/07 0000 Nasal 3.0L Cannula 10/06 2208 58 140/62 10/06 2203 98.7 58 20 140/62 93 Nasal 2.0L Cannula 10/06 2151 58 91 10/06 2111 61 140/62 10/06 1709 62 152/78 10/06 1600 95 Nasal 3.0L Cannula 10/06 1400 98.3 65 20 162/60 92 Nasal 2.0L Cannula 10/06 1326 63 156/60 Intake & Output 10/07 1600 10/07 0800 10/07 0000 10/06 1600 10/06 0800 10/06 0000 Intake Total 300 300 550 254 470 Output Total 1900 1000 1350 1800 1250 Balance -1600 -700 -800 -1546 -780 Intake, IV 150 134 110 Intake, Oral 300 300 400 120 360 Number 1 Bowel Movements Output, Urine 1900 1000 1350 1800 1250 Patient 283 lb 286 lb Weight Weight Bed scale Measurement Method Physical Exam: General Appearance: well developed/nourished, alert, awake, oriented Head: normal HEENT: Normal Neck: supple, JVP normal, carotid upstrokes normal bilaterally, no masses or thyromegaly Respiratory: chest non-tender, clear to auscultation and percussion bilaterally Cardiovascular: regular rate/rhythm, normal S1, S2, 1-2/6 systolic murmur Abdomen: normal bowel sounds, soft, non-tender Extremities: normal inspection, 2+ edema Vascular: Pulses are 2+ and equal bilaterally Neurologic: Grossly normal/nonfocal Current Medications: Current Medications Sig/Jose Angel Start time Last Medication Dose Route Stop Time Status Admin Acetaminophen 650 MG .STK-MED ONE 10/06 181 DC PO 10/06 181 Acetaminophen 650 MG Q4P PRN 09/27 1600 AC 10/06 PO 181 Albumin Human 25 GM Q8 10/03 1400 DC 10/07 IV 0514 Amlodipine Besylate 10 MG DAILY 09/24 0330 10/07 PO 0751 Atorvastatin Calcium 40 MG 1700 09/24 1700 AC 10/06 PO 1620 Calcium Acetate 667 MG 09/24 1708 10/07 PO 0751 Epoetin Chu 15,000 U ONCE A WEEK 10/03 1000 10/03 [place] 1052 Fenofibrate 145 MG DAILY 09/24 0900 10/07 PO 0750 Ferric Sodium 125 MG Q48 09/27 1500 10/07 Gluconate Complex IV 10/11 0959 0903 Sodium Chloride 100 ML Furosemide 120 MG Q8 10/04 2200 AC 10/07 Sodium Chloride 50 ML IV 0618 Heparin Sodium 5,000 UNIT Q8 09/24 0600 10/07 (Porcine) SC 0514 Hydralazine HCl 50 MG 0600,1200,1800,2300 10/06 1800 10/07 PO 0520 Hydralazine HCl 50 MG TID 10/05 2100 VA 10/06 PO 1326 Insulin Aspart 0 TIDAC 10/01 1200 10/06 SC 1650 Magnesium Oxide 400 MG BID 09/27 0900 10/07 PO 0751 Metaxalone 800 MG TID 09/24 0900 10/07 PO 0752 Metolazone 10 MG 0530,2130 10/03 2130 10/07 PO 0513 Metoprolol Tartrate 50 MG BID 10/05 2100 10/07 PO 0752 Mupirocin 1 MEI TID 10/06 1540 10/07 TOP 0758 Sevelamer Carbonate 1,600 MG 09/24 1711 10/07 PO 0751 Sodium Bicarbonate 1,950 MG TID 09/26 1400 10/07 PO 0750 Sodium Hypochlorite 1 MEI BID 09/25 1100 10/07 TOP 0758 Tramadol HCl 50 MG Q8P PRN 10/01 1045 AC 10/06 PO 2111 Trazodone HCl 100 MG QPM 09/27 2100 10/06 PO 2111 Results Last 48 Hrs of Labs/Mics: Laboratory Tests 10/07/17 0634: Anion Gap 13, Estimated GFR 10 L, BUN/Creatinine Ratio 13.4, Magnesium 2.4 H, CBC w Diff NO MAN DIFF REQ, RBC 3.19 L, MCV 93.3, MCH 29.9, MCHC 32.1 L, RDW 16.9 H, MPV 8.6, Gran % 75.1, Lymphocytes % 14.7 L, Monocytes % 9.3, Eosinophils % 0.8, Basophils % 0.1, Absolute Granulocytes 5.1, Absolute Lymphocytes 1.0 L, Absolute Monocytes 0.6, Absolute Eosinophils 0.1, Absolute Basophils 0 10/06/17 0740: Anion Gap 12, Estimated GFR 10 L, BUN/Creatinine Ratio 13.4, CBC w Diff NO MAN DIFF REQ, RBC 3.37 L, MCV 91.6, MCH 29.3, MCHC 32.0 L, RDW 16.6 H, MPV 8.7, Gran % 76.1 H, Lymphocytes % 15.2 L, Monocytes % 8.0, Eosinophils % 0.7, Basophils % 0, Absolute Granulocytes 5.4, Absolute Lymphocytes 1.1 L, Absolute Monocytes 0.6, Absolute Eosinophils 0.1, Absolute Basophils 0 Assessment/Plan Assessment/Plan Assessment: 1. Acute on chronic HFpEF 2. History of coronary disease, status post bypass surgery 3. Diabetes 4. CKD 5. Normocytic anemia Recommendations: 1. Continue to follow nephrology recommendations 2. Continue Lasix at dosing as recommended by nephrology 3. Monitor input and output with daily weights 4. Check basic metabolic profile daily Continue telemetry? Yes
--- NOTE | 2017-10-07 12:56 | ULTRASOUND REPORT ---
EXAMINATION: US TRIPLEX LOWER EXTREMITY, right. CLINICAL INFORMATION: Swelling right upper extremity. COMPARISON: None TECHNIQUE: Color-flow triplex imaging with spectral analysis and compression Doppler were performed on the lower extremity. FINDINGS: Respiratory variation, normal compression and augmented flow are noted throughout the lower extremity. The visualized common femoral vein, superficial femoral vein, profunda femoral vein, popliteal vein and midcalf peroneal and posterior tibial venous segments show no evidence of deep venous thrombosis. There is mild edema seen in the lateral upper arm. There is no Sullivan's cyst. IMPRESSION: Normal right lower extremity venous study. No evidence of DVT. There is edema noted right lateral upper arm distally.
--- NOTE | 2017-10-07 16:07 | RADIOLOGY REPORT ---
EXAMINATION: XR CHEST CLINICAL INFORMATION: History of chronic renal disease. Patient requiring diuresis. Reevaluate. COMPARISON: CXR from 09/29/2017. Chest CT from 09/23/2017 TECHNIQUE: 2 views of the chest were obtained. FINDINGS: Cardiomegaly and persistent right enlarged central pulmonary vessels. However, no overt interstitial edema. The hazy opacity in the right lower chest likely represents a combination of small residual pleural effusion and basilar atelectasis. The right pleural effusion has decreased in size compared to 09/29/2017. The persistent opacity in the retrocardiac region of left lower lobe likely represents a combination of residual small pleural effusion and compressive atelectasis. However, unable to exclude underlying airspace disease in this region. The aeration of the retrocardiac area appears improved compared to the portable chest radiograph from 09/29/2017. Also, the size of the left pleural effusion appears decreased compared to the chest CT of 09/23/2017. Calcified granulomas are present in the right middle lobe. Calcified hilar lymph nodes from old granulomatous disease. Sternotomy wires are intact. No acute skeletal findings. IMPRESSION: 1. Cardiomegaly and central pulmonary vascular congestion without pulmonary edema. 2. Pleural effusions appear decreased compared to . 3. The aeration of the retrocardiac region of left lower lobe has improved. The residual opacity probably represents a combination of the pleural effusion and compressive atelectasis.
[2017-10-07 21:40] VITALS: BP 142/62
[2017-10-08 06:23] VITALS: BP 148/62
--- NOTE | 2017-10-08 07:12 | PN- Housestaff ---
Renard Zuniga 10/08/17 0710: Subjective Follow-up For: 1. Acute on chronic HFpEF 2. History of coronary disease, status post bypass surgery 3. Diabetes 4. CKD 5. Normocytic anemia Complaints: no complaints Tele-Events Since Last Visit: Normal sinus rhythm, heart rate in the range of 56-65, no overnight events were noted. Subjective: He was comfortable this morning. Stated that he feels much better compared to when he came in. Did not have any acute dyspnea, but he had an episode of desaturation when oxygen was tapered down yesterday. Currently being diuresed up to 5 L in the last 24 hours. He is trying to get up and walk around, with the help of a walker. Review of Systems Constitutional: Reports: see HPI. Objective Last 24 Hrs of Vital Signs/I&O Vital Signs Date Time Temp Pulse Resp B/P B/P Pulse O2 O2 Flow FiO2 Mean Ox Delivery Rate 10/08 0623 98.8 65 20 148/62 95 Nasal 3.0L Cannula 10/08 0557 63 148/62 10/08 0110 56 96 10/07 2250 94 Nasal 2.0L Cannula 10/07 2204 56 93 10/07 2201 60 162/68 10/07 2140 98.5 62 20 142/62 94 Nasal Cannula 10/07 2129 63 142/62 10/07 1823 62 150/72 10/07 1659 96 Nasal 1.0L Cannula 10/07 1229 71 158/78 10/07 0800 96 Nasal 3.0L Cannula 10/07 0752 65 150/76 10/07 0751 65 150/72 Intake & Output 10/08 0800 10/08 0000 10/07 1600 Intake Total 62 500 Output Total 1000 1949 1999 Balance -1000 -1888 -1500 Intake, IV 62 100 Intake, Oral 400 Number 1 2 Bowel Movements Output, Urine 1000 1949 1999 Patient 276 lb Weight Physical Exam General Appearance: No Acute Distress Other Physical Findings: General Exam: AAOx3, not in any distress, Skin: No rashes, small 0.5cmx0.5cm ulcer on the anterior chest wall; HEENT: PERRLA, EOMI;Neck: Supple, No JVD; No cervical lymphadenopathy; CVS: Reg Rate, Normal S1,S2, No MGR; Resp: decreased air entry, no ronchi/rales;Abdomen: Soft, No tenderness, Normal Bowel Sounds; Neuro: Normal Speech, Strength 5/5 b/l x 4 extremities, Sensation intact, CN III -XII NL, Reflexes 2+; Extremities: No cyanosis, 2 + pedal edema, ? claire bandage on the left foot in place, and couldnt examine; bandage is changed three days every week. Doesnt appear to have any discharge. Current Medications: Current Medications Sig/Jose Angel Start time Last Medication Dose Route Stop Time Status Admin Acetaminophen 650 MG Q4P PRN 09/27 1600 AC 10/06 PO 1818 Albumin Human 25 GM Q8 10/03 1400 DC 10/07 IV 0514 Amlodipine Besylate 10 MG DAILY 09/24 0330 10/07 PO 0751 Atorvastatin Calcium 40 MG 1700 09/24 1700 AC 10/07 PO 1606 Calcium Acetate 667 MG WM 09/24 1708 AC 10/07 PO 1606 Epoetin Chu 15,000 U ONCE A WEEK 10/03 1000 10/03 MO 1052 Fenofibrate 145 MG DAILY 09/24 0900 10/07 PO 0750 Ferric Sodium 125 MG Q48 09/27 1500 AC 10/07 Gluconate Complex IV 10/11 0959 0903 Sodium Chloride 100 ML Furosemide 120 MG Q8 10/04 2200 AC 10/08 Sodium Chloride 50 ML IV 0639 Heparin Sodium 5,000 UNIT Q8 09/24 0600 10/08 (Porcine) SC 0557 Hydralazine HCl 50 MG 0600,1200,1800,2300 10/06 1800 10/08 PO 0557 Insulin Aspart 0 TIDAC 10/01 1200 10/07 SC 1631 Magnesium Oxide 400 MG BID 09/27 0900 AC 10/07 PO 2129 Metaxalone 800 MG TID 09/24 0900 10/07 PO 2130 Metolazone 10 MG 0530,2130 10/03 2130 10/08 PO 0557 Metoprolol Tartrate 50 MG BID 10/05 2100 AC 10/07 PO 2129 Mupirocin 1 MEI TID 10/06 1540 10/07 TOP 2158 Potassium Chloride 20 MEQ 1315 10/07 1315 DC 10/07 PO 10/07 1316 1606 Sevelamer Carbonate 1,600 MG WM 09/24 1711 10/07 PO 1606 Sodium Bicarbonate 1,950 MG TID 09/26 1400 AC 10/07 PO 2128 Sodium Hypochlorite 1 MEI BID 09/25 1100 AC 10/07 TOP 0758 Tramadol HCl 50 MG Q8P PRN 10/01 1045 AC 10/06 PO 2110 Trazodone HCl 100 MG QPM 09/27 2100 AC 10/07 PO 2128 Last 24 Hrs of Lab/[place] Results Last 24 Hrs of Labs/Mics: Laboratory Tests 10/08/17 0618: Sodium Pending, Potassium Pending, Chloride Pending, Carbon Dioxide Pending, Anion Gap Pending, BUN Pending, Creatinine Pending, BUN/Creatinine Ratio Pending , CBC w Diff Pending, WBC Pending, RBC Pending, Hgb Pending, Hct Pending, MCV Pending, MCH Pending, MCHC Pending, RDW Pending, Plt Count Pending, MPV Pending Assessment/Plan Assessment: Mr Urban is a 80-year-old man w/ a PMHx of 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 Pertinent lab findings: WBC 9.4, hemoglobin 9.9-->10.3, platelets 181 Sodium 141, potassium 4.4, anion gap 12 BUN 57 (09/23/2017)-->77(10/08/2017) Sr Cr 5.0 (09/23/2017)-->5.7(10/08/2017) Phos 7.3 (09/23/2017)--> 6.3 (10/01/2017)-->5.5(10/03/2017) Mg 1.7 (09/23/2017)--> 2.4 (10/07/2017) HCO3 32 (10/07/2017)-->34 (10/07/2017) likely contraction alkalosis. ProBNP 13940 Troponin 0.01,0.01 Liver chemistries-AST 20, ALT 19, alkaline phosphatase 111, albumin 2.9 Urinalysis revealed urine protein greater than 100, ULE small, WBC 5-10. Etiology in his case is likely diabetic nephropathy, and other causes such as obesity induced FSG or obstructive nephropathy. He is clearly in volume overload , and unsure if the pt couldnt diurese in the past on his current diuretics/ diuretic resistance. Serum creatinine is stable at this time, and has been aggressively diuresed with intravenous furosemide, which has been changed to po furosemide. Urine output in the last 24 hrs 5 L. Below is the plan: 1. Stage IV/V CKD- He was being diuresed using metolazone and bumetanide, was changed to combination of metolazone and furosemide, to make sure that he is adequately diuresed. As per the scanning tech, Albumin was discontinued. Continue Epogen 15,000U weekly Continue Ferrlecit 125mg IV every other day x8 doses. Continue Phoslo Strict I/Os and daily weights. Aranda placed 09/26/[address] Cancino. As per Dr. Cancino, Aranda catheter could be removed. DC order placed. avoid nephrotoxic meds 1300mg sodium bicarb QID Check Chest x ray to evaluate diuresis, as per the scanning tech. Replenish potassium, as per nephrology. 2. Acute on chronic HFpEF strict I/Os. Please check standing daily weights. The daily weights recorded, dont appear to have a pattern. daily accurate weights continue metoprolol, as the BP tolerates. 3. Type 2 DM accuchecks continue ISS 4. Left heel non-healing ulcer/chest furuncle wound consult. Change dressing every third day. Surgery consulted, recomending heat application, will continue to monitor. 5. Acute pseudo gout Orthopedic surgeon was consulted. Completed the course of prednisone. IV tylenol for pain control. DVT ppx sc heparin full code renal dialysis diet Anticipated discharge in the am. Discussed w/ the pt. Problem List: 1. Diabetes 2. Bilateral pleural effusion 3. Anasarca Pain Ratin Pain Location: back Pain Goal: Pain 4 or less Pain Plan: tylenol Tomorrow's Labs & Rationales: cbc bep Rebecca Geiger 10/08/17 1046: Attending Review Statement Attending Statement Attending MD Statement: examined this patient, discuss w/resident/PA/FLAT FOLDER, agreed w/resident/PA/FLAT FOLDER, discussed with family, reviewed EMR data (avail), discussed with nursing, discussed with case mgmt, reviewed images, amended to note Attending Assessment/Plan: Patient seen/examined. Patient diuresing well with negative output close to 4-5 L in past 24 hrs. He denies any new complaints. He received high dose diuretics for fluid overload 2/2 progressive worsening of chronic kidney disease stage 5. Patient iv diuretcis change to PO as per nephrology. Chest xary with b/l pleural effusion which are improved. Patient discharge planning to STR on PO diuretics. He is on 2l oxygen supplementation at discharge. Try to wean off. Patient opts for peritoneal dialysis and can be done outpatient with his neprologist at [place]. Patient is getting lessons in peritoneal dialysis as per him.
[2017-10-08 07:42] LABS: ABSOLUTE BASOPHIL COUNT 0 /CUMM (0.0-0.2); ABSOLUTE EOSINOPHIL COUNT 0.1 /CUMM (0.0-0.7); ABSOLUTE GRANULOCYTE CT 6.9 /CUMM (1.4-6.5); ABSOLUTE LYMPH COUNT 0.9 /CUMM (1.2-3.4); ABSOLUTE MONOCYTE COUNT 0.9 /CUMM (0.10-0.60); BASOPHIL % 0.4 % (0.0-2.0); EOSINOPHIL % 0.6 % (0-5); HEMATOCRIT 31.4 % (42-52); MEAN CORPUSCULAR HGB CONC 32.3 G/DL (33.0-37.0); MEAN CORPUSCULAR VOLUME 92.9 FL (80.0-94.0); PLATELET COUNT 176 /CUMM (130-400); RBC DISTRIBUTION WIDTH 17.1 % (11.5-14.5); RED BLOOD CELL CT 3.38 /CUMM (4.70-6.10); WHITE BLOOD CELL COUNT 8.8 /CUMM (4.8-10.8)
--- NOTE | 2017-10-08 08:17 | Operative Report ---
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 Timeout was performed, with the patient awake, to confirm of patient, anesthesia, antibiotics, procedure, and other pertinent perioperative information. After adequate anesthesia, and antibiotics, the patient was then placed lithotomy stirrups, then draped and prepped, in the usual surgical fashion. A 22 Haitian cystoscope sheath with 30 angle lens was inserted into the urethra. Under direct visualization, the cystoscope was advanced to the level of the prostatic urethra. A false lumen was noted on the posterior prostate undermining the bladder. Direct visualization allowed me to bypass this false passage, and enter the bladder without further difficulty. The bladder was noted to be severely trabeculated, with no tumor, no stone. Through the cystoscope, a 0.038 guidewire was inserted into the bladder. The cystoscope was removed, leaving the guidewire in place. A 20 Haitian [place] tip March catheter , was railroaded over this guidewire and advanced easily into the bladder. The guidewire was removed, draining clear fluid. 10 mL of sterile water was placed into the 10 mL balloon. At this point, the Bonnano suprapubic tube was then withdrawn from the suprapubic tube site without difficulty in its entirety. The percutaneous entrance site of the Bonnano suprapubic tube was then cleaned, and a pressure bandage, with sterile gauze, was placed over the suprapubic tube site in order to allow it to heal. The patient tolerated procedures well. All sponge needle and instrument count were correct at the end of the case. The patient was taken to the recovery room in satisfactory condition. He is given postoperative instructions, antibiotics, pain medications, and was taught to use leg bag prior to discharge to home. Discharge Disposition: PACU Additional Comments: sharon march when creatinine at baseline and pt ready for discharge CC: Toy Cancino MD
--- NOTE | 2017-10-08 09:02 | PN- Nephrology ---
Assessment/Plan Nephrology Assessment: 1. CKD: advanced/ESRD, stage, 5 due to DN; stable w/o dialysis indication 2. Volume overload: continues to improve w hi dose diuretics --> wt down ~ 40 lbs 3. Met alk: diuretic induced --> needs K replacement 3. Anemia: CAITLIN & IV Fe Suggestion: 1. KCl 40 meq po bid today 2. d/c metolazone 3. change Lasix IV --> po 120 mg bid 4. d/c Aranda ? discharge planning Subjective Subjective: SOB improved No grosss uremic sx Polyuric w hi dose diuretics > 5 liters yesterday Objective Vital Signs and I&Os Vital Signs Date Time Temp Pulse Resp B/P B/P Pulse O2 O2 Flow FiO2 Mean Ox Delivery Rate 10/08 0824 Nasal 3.0L Cannula 10/08 0753 72 148/62 10/08 0753 74 148/62 10/08 0623 98.8 65 20 148/62 95 Nasal 3.0L Cannula 10/08 0557 63 148/62 10/08 0110 56 96 10/07 2250 94 Nasal 2.0L Cannula 10/07 2204 56 93 10/07 2201 60 162/68 10/07 2140 98.5 62 20 142/62 94 Nasal Cannula 10/07 2129 63 142/62 10/07 1823 62 150/72 10/07 1659 96 Nasal 1.0L Cannula 10/07 1229 71 158/78 Intake & Output 10/08 1600 10/08 0400 10/07 1600 10/07 0400 10/06 1600 10/06 0400 Intake Total 62 800 300 804 470 Output Total 1000 1950 3900 1000 3150 1250 Balance -1000 -1888 -3100 -700 -2346 -780 Intake, IV 62 100 284 110 Intake, Oral 700 300 520 360 Number 1 2 1 Bowel Movements Output, Urine 1000 1950 3900 1000 3150 1250 Patient 276 lb 283 lb 286 lb Weight Weight Bed scale Measurement Method Physical Exam General Appearance: no apparent distress, alert Head: atraumatic, normal appearance Ears, Nose, Throat: normal ENT inspection Neck: normal inspection Respiratory: no respiratory distress, quiet respiration, decreased breath sounds (R base) Cardiovascular: regular rate/rhythm, edema Abdomen: soft, non-tender Extremities: swelling Neurologic/Psychiatric: awake, alert Lymphatic: no anterior cervical ashlyn Current Medications: Current Medications Sig/Jose Angel Start time Last Medication Dose Route Stop Time Status Admin Acetaminophen 650 MG Q4P PRN 09/27 1600 10/06 PO 1818 Albumin Human 25 GM Q8 10/03 1400 HI 10/07 IV 0514 Amlodipine Besylate 10 MG DAILY 09/24 0330 10/08 PO 0753 Atorvastatin Calcium 40 MG 1700 09/24 1700 AC 10/07 PO 1606 Calcium Acetate 667 MG WM 09/24 1708 10/08 PO 0750 Epoetin Chu 15,000 U ONCE A WEEK 10/03 1000 10/03 IN 1052 Fenofibrate 145 MG DAILY 09/24 0900 10/08 PO 0750 Ferric Sodium 125 MG Q48 09/27 1500 10/07 Gluconate Complex IV 10/11 0959 0903 Sodium Chloride 100 ML Furosemide 120 MG Q8 10/04 2200 AC 10/08 Sodium Chloride 50 ML IV 0639 Heparin Sodium 5,000 UNIT Q8 09/24 0600 10/08 (Porcine) SC 0557 Hydralazine HCl 50 MG 0600,1200,1800,2300 10/06 1800 10/08 PO 0557 Insulin Aspart 0 TIDAC 10/01 1200 10/07 SC 1631 Magnesium Oxide 400 MG BID 09/27 0900 10/08 PO 0750 Metaxalone 800 MG TID 09/24 0900 10/08 PO 0749 Metolazone 10 MG 0530,2130 10/03 2130 10/08 PO 0557 Metoprolol Tartrate 50 MG BID 10/05 2100 10/08 PO 0753 Mupirocin 1 MEI TID 10/06 1540 10/08 TOP 0754 Potassium Chloride 20 MEQ 1315 10/07 1315 HI 10/07 PO 10/07 1316 1606 Sevelamer Carbonate 1,600 MG WM 09/24 1711 10/08 PO 0750 Sodium Bicarbonate 1,950 MG TID 09/26 1400 10/08 PO 0750 Sodium Hypochlorite 1 MEI BID 09/25 1100 10/07 TOP 0758 Tramadol HCl 50 MG Q8P PRN 10/01 1045 10/06 PO 2111 Trazodone HCl 100 MG QPM 09/27 2100 10/07 PO 2129 Results Pertinent Lab Results: Laboratory Tests 10/08 10/07 0618 0634 Chemistry Sodium (137 - 145 mmol/L) 142 143 Potassium (3.5 - 5.1 mmol/L) 3.4 L 3.5 Chloride (98 - 107 mmol/L) 97 L 98 Carbon Dioxide (22 - 30 mmol/L) 34 H 32 H Anion Gap (5 - 16) 11 13 BUN (9 - 20 mg/dL) 77 H 79 H Creatinine (0.7 - 1.2 mg/dL) 5.7 *H 5.9 *H Estimated GFR (>60 ml/min) 10 L 10 L BUN/Creatinine Ratio (7 - 25 %) 13.5 13.4 Magnesium (1.6 - 2.3 mg/dL) 2.4 H Hematology CBC w Diff NO MAN DIFF REQ NO MAN DIFF REQ WBC (4.8 - 10.8 /CUMM) 8.8 6.8 RBC (4.70 - 6.10 /CUMM) 3.38 L 3.19 L Hgb (14.0 - 18.0 G/DL) 10.1 L 9.6 L Hct (42 - 52 %) 31.4 L 29.8 L MCV (80.0 - 94.0 FL) 92.9 93.3 MCH (27.0 - 31.0 PG) 30.0 29.9 MCHC (33.0 - 37.0 G/DL) 32.3 L 32.1 L RDW (11.5 - 14.5 %) 17.1 H 16.9 H Plt Count (130 - 400 /CUMM) 176 157 MPV (7.4 - 10.4 FL) 9.0 8.6 Gran % (42.2 - 75.2 %) 79.0 H 75.1 Lymphocytes % (20.5 - 51.1 %) 10.0 L 14.7 L Monocytes % (1.7 - 9.3 %) 10.0 H 9.3 Eosinophils % (0 - 5 %) 0.6 0.8 Basophils % (0.0 - 2.0 %) 0.4 0.1 Absolute Granulocytes (1.4 - 6.5 /CUMM) 6.9 H 5.1 Absolute Lymphocytes (1.2 - 3.4 /CUMM) 0.9 L 1.0 L Absolute Monocytes (0.10 - 0.60 /CUMM) 0.9 H 0.6 Absolute Eosinophils (0.0 - 0.7 /CUMM) 0.1 0.1 Absolute Basophils (0.0 - 0.2 /CUMM) 0 0 06/24 0740 Chemistry Sodium (137 - 145 mmol/L) 144 Potassium (3.5 - 5.1 mmol/L) 3.8 Chloride (98 - 107 mmol/L) 102 Carbon Dioxide (22 - 30 mmol/L) 30 Anion Gap (5 - 16) 12 BUN (9 - 20 mg/dL) 79 H Creatinine (0.7 - 1.2 mg/dL) 5.9 *H Estimated GFR (>60 ml/min) 10 L BUN/Creatinine Ratio (7 - 25 %) 13.4 Hematology CBC w Diff NO MAN DIFF REQ WBC (4.8 - 10.8 /CUMM) 7.1 RBC (4.70 - 6.10 /CUMM) 3.37 L Hgb (14.0 - 18.0 G/DL) 9.9 L Hct (42 - 52 %) 30.9 L MCV (80.0 - 94.0 FL) 91.6 MCH (27.0 - 31.0 PG) 29.3 MCHC (33.0 - 37.0 G/DL) 32.0 L RDW (11.5 - 14.5 %) 16.6 H Plt Count (130 - 400 /CUMM) 169 MPV (7.4 - 10.4 FL) 8.7 Gran % (42.2 - 75.2 %) 76.1 H Lymphocytes % (20.5 - 51.1 %) 15.2 L Monocytes % (1.7 - 9.3 %) 8.0 Eosinophils % (0 - 5 %) 0.7 Basophils % (0.0 - 2.0 %) 0 Absolute Granulocytes (1.4 - 6.5 /CUMM) 5.4 Absolute Lymphocytes (1.2 - 3.4 /CUMM) 1.1 L Absolute Monocytes (0.10 - 0.60 /CUMM) 0.6 Absolute Eosinophils (0.0 - 0.7 /CUMM) 0.1 Absolute Basophils (0.0 - 0.2 /CUMM) 0 Imaging/Other Studies: Doppler: IMPRESSION: Normal right lower extremity venous study. No evidence of DVT. There is edema noted right lateral upper arm distally. CXR: Cardiomegaly and persistent right enlarged central pulmonary vessels. However, no overt interstitial edema. The hazy opacity in the right lower chest likely represents a combination of small residual pleural effusion and basilar atelectasis. The right pleural effusion has decreased in size compared to 09/29/2017. The persistent opacity in the retrocardiac region of left lower lobe likely represents a combination of residual small pleural effusion and compressive atelectasis. However, unable to exclude underlying airspace disease in this region. The aeration of the retrocardiac area appears improved compared to the portable chest radiograph from 09/29/2017. Also, the size of the left pleural effusion appears decreased compared to the chest CT of 09/23/2017. Calcified granulomas are present in the right middle lobe. Calcified hilar lymph nodes from old granulomatous disease. Sternotomy wires are intact. No acute skeletal findings. IMPRESSION: 1. Cardiomegaly and central pulmonary vascular congestion without pulmonary edema. 2. Pleural effusions appear decreased compared to . 3. The aeration of the retrocardiac region of left lower lobe has improved. The residual opacity probably represents a combination of the pleural effusion and compressive atelectasis.
--- NOTE | 2017-10-08 11:43 | PN- Cardiology ---
Subjective Subjective: Shortness of breath is improving. No chest pain. No palpitations. No diaphoresis. No nausea or vomiting Objective Vital Signs and I&Os Vital Signs Date Time Temp Pulse Resp B/P B/P Pulse O2 O2 Flow FiO2 Mean Ox Delivery Rate 10/08 1105 63 154/70 10/08 1053 Nasal 3.0L Cannula 10/08 1039 Nasal 3.0L Cannula 10/08 0852 95 Nasal 2.0L Cannula 10/08 0824 Nasal 3.0L Cannula 10/08 0753 72 148/62 10/08 0753 74 148/62 10/08 0623 98.8 65 20 148/62 95 Nasal 3.0L Cannula 10/08 0557 63 148/62 10/08 0110 56 96 10/07 2250 94 Nasal 2.0L Cannula 10/07 2204 56 93 10/07 2201 60 162/68 10/07 2140 98.5 62 20 142/62 94 Nasal Cannula 10/07 2129 63 142/62 10/07 1823 62 150/72 10/07 1659 96 Nasal 1.0L Cannula 10/07 1229 71 158/78 Intake & Output 10/08 1600 10/08 0800 10/08 0000 10/07 1600 10/07 0800 10/07 0000 Intake Total 62 500 300 300 Output Total 1000 1949 1999 1899 1000 Balance -1000 -1888 -1500 -1600 -700 Intake, IV 62 100 Intake, Oral 400 300 300 Number 1 2 Bowel Movements Output, Urine 1000 1949 1999 1900 1000 Patient 265 lb 276 lb 283 lb Weight Weight Chair scale Bed scale Measurement Method Physical Exam: General Appearance: well developed/nourished, alert, awake, oriented Head: normal HEENT: Normal Neck: supple, JVP normal, carotid upstrokes normal bilaterally, no masses or thyromegaly Respiratory: chest non-tender, clear to auscultation and percussion bilaterally Cardiovascular: regular rate/rhythm, normal S1, S2, 1-2/6 systolic murmur Abdomen: normal bowel sounds, soft, non-tender Extremities: normal inspection, 2+ edema Vascular: Pulses are 2+ and equal bilaterally Neurologic: Grossly normal/nonfocal Current Medications: Current Medications Sig/Jose Angel Start time Last Medication Dose Route Stop Time Status Admin Acetaminophen 650 MG Q4P PRN 09/27 1600 AC 10/06 PO 1818 Amlodipine Besylate 10 MG DAILY 09/24 0330 10/08 PO 0753 Atorvastatin Calcium 40 MG 1700 09/24 1700 10/07 PO 1606 Calcium Acetate 667 MG 09/24 1708 10/08 PO 1104 Epoetin Chu 15,000 U ONCE A WEEK 10/03 1000 10/03 PR 1052 Fenofibrate 145 MG DAILY 09/24 0900 10/08 PO 0750 Ferric Sodium 125 MG Q48 09/27 1500 10/07 Gluconate Complex IV 10/11 0959 0903 Sodium Chloride 100 ML Furosemide 120 MG BID 10/08 2100 PO Furosemide 120 MG Q8 10/04 2200 MD 10/08 Sodium Chloride 50 ML IV 0639 Heparin Sodium 5,000 UNIT Q8 09/24 0600 10/08 (Porcine) SC 0557 Hydralazine HCl 50 MG 0600,1200,1800,2300 10/06 1800 10/08 PO 1105 Insulin Aspart 0 TIDAC 10/01 1200 10/07 PR 1631 Magnesium Oxide 400 MG BID 09/27 0900 10/08 PO 0750 Metaxalone 800 MG TID 09/24 0900 10/08 PO 0749 Metolazone 10 MG 0530,2130 10/03 2130 MD 10/08 PO 0557 Metoprolol Tartrate 50 MG BID 10/05 2100 10/08 PO 0753 Mupirocin 1 MEI TID 10/06 1540 10/08 TOP 0754 Potassium Chloride 40 MEQ BID 10/08 1000 10/08 PO 10/08 2101 1107 Potassium Chloride 20 MEQ 1315 10/07 1315 MD 10/07 PO 10/07 1316 1606 Sevelamer Carbonate 1,600 MG 09/24 1711 10/08 PO 1104 Sodium Bicarbonate 1,950 MG TID 09/26 1400 10/08 PO 0750 Sodium Hypochlorite 1 MEI BID 09/25 1100 10/07 TOP 0758 Tramadol HCl 50 MG Q8P PRN 10/01 1045 MD 10/06 PO 2111 Trazodone HCl 100 MG QPM 09/27 2100 10/07 PO 2129 Results Last 48 Hrs of Labs/Mics: Laboratory Tests 10/08/17 0618: Anion Gap 11, Estimated GFR 10 L, BUN/Creatinine Ratio 13.5, CBC w Diff NO MAN DIFF REQ, RBC 3.38 L, MCV 92.9, MCH 30.0, MCHC 32.3 L, RDW 17.1 H, MPV 9.0, Gran % 79.0 H, Lymphocytes % 10.0 L, Monocytes % 10.0 H, Eosinophils % 0.6, Basophils % 0.4, Absolute Granulocytes 6.9 H, Absolute Lymphocytes 0.9 L, Absolute Monocytes 0.9 H, Absolute Eosinophils 0.1, Absolute Basophils 0 10/07/17 0634: Anion Gap 13, Estimated GFR 10 L, BUN/Creatinine Ratio 13.4, Magnesium 2.4 H, CBC w Diff NO MAN DIFF REQ, RBC 3.19 L, MCV 93.3, MCH 29.9, MCHC 32.1 L, RDW 16.9 H, MPV 8.6, Gran % 75.1, Lymphocytes % 14.7 L, Monocytes % 9.3, Eosinophils % 0.8, Basophils % 0.1, Absolute Granulocytes 5.1, Absolute Lymphocytes 1.0 L, Absolute Monocytes 0.6, Absolute Eosinophils 0.1, Absolute Basophils 0 Assessment/Plan Assessment/Plan Assessment: 1. Acute on chronic HFpEF 2. History of coronary disease, status post bypass surgery 3. Diabetes 4. CKD 5. Normocytic anemia Recommendations: 1. Continue to follow nephrology recommendations 2. Change Lasix to p.o. as recommended by nephrology 3. Monitor input and output with daily weights 4. Check basic metabolic profile daily Continue telemetry? Yes
[2017-10-08 15:14] VITALS: BP 160/64
[2017-10-08] MEDS ORDERED: METOPROLOL TART50 M1 PO (15:54)
[2017-10-08] MEDS ORDERED: HYDRALAZINE HCL50 M1 PO (15:54)
[2017-10-08] MEDS ORDERED: PROCRIT20000 UNIT SC (15:54)
[2017-10-08] MEDS ORDERED: LASIX40 M1 PO (15:54)
[2017-10-08] MEDS ORDERED: SODIUM BICARBO325 M1 PO (15:59)
[2017-10-08 21:44] VITALS: BP 146/72
[2017-10-09 06:32] VITALS: BP 158/70
--- NOTE | 2017-10-09 07:12 | PN- Housestaff ---
See Addendum Renard Zuniga 10/09/17 0710: Subjective Follow-up For: 1. Acute on chronic HFpEF 2. History of coronary disease, status post bypass surgery 3. Diabetes 4. CKD 5. Normocytic anemia Complaints: no complaints Complaints: no complaints Tele-Events Since Last Visit: NSR, No overnight tele events noted. Subjective: Mr Urban was comfortable, and didnt have any concerns. He still continued to be hypoxemic when he moved, and required supplemental oxygen. No chest pain, dyspnea, or palpitations. Vitals were stable, and he continued to be slightly hypertensive likely secondary to his kidney disease. His Aranda catheter was removed, and didnt have any concerns. He did not have any dysurea, or difficulty urination. Review of Systems Constitutional: Reports: see HPI. Objective Last 24 Hrs of Vital Signs/I&O Vital Signs Date Time Temp Pulse Resp B/P B/P Pulse O2 O2 Flow FiO2 Mean Ox Delivery Rate 10/09 0638 64 158/70 10/09 0632 99.0 66 20 158/70 92 Nasal 2.0L Cannula 10/09 0017 63 92 10/08 2223 60 93 10/08 2221 60 166/68 10/08 2144 99.1 69 20 146/72 93 Nasal 1.5L Cannula 10/08 2056 Nasal 2.0L Cannula 10/08 2051 68 146/72 10/08 1717 69 158/60 10/08 1611 94 Nasal 2.0L Cannula 10/08 1514 98.6 61 20 160/64 94 10/08 1105 63 154/70 10/08 1053 Nasal 3.0L Cannula 10/08 1039 Nasal 3.0L Cannula 10/08 0852 95 Nasal 2.0L Cannula 10/08 0824 Nasal 3.0L Cannula 10/08 0753 72 148/62 10/08 0753 74 148/62 Intake & Output 10/09 0800 10/09 0000 10/08 1600 Intake Total 400 Output Total 1050 1000 2350 Balance -1050 -1000 -1950 Intake, Oral 400 Number 1 1 Bowel Movements Output, Urine 1050 1000 2350 Patient 268 lb 265 lb Weight Weight Bed scale Chair scale Measurement Method Physical Exam General Appearance: No Acute Distress Other Physical Findings: General Exam: AAOx3, not in any distress, Skin: No rashes, small 0.5cmx0.5cm ulcer on the anterior chest wall; HEENT: PERRLA, EOMI;Neck: Supple, No JVD; No cervical lymphadenopathy; CVS: Reg Rate, Normal S1,S2, No MGR; Resp: decreased air entry, no ronchi/rales;Abdomen: Soft, No tenderness, Normal Bowel Sounds; Neuro: Normal Speech, Strength 5/5 b/l x 4 extremities, Sensation intact, CN III -XII NL, Reflexes 2+; Extremities: No cyanosis, 2 + pedal edema, ? claire bandage on the left foot in place, and couldnt examine; bandage is changed three days every week. Doesnt appear to have any discharge. Current Medications: Current Medications Sig/Jose Angel Start time Last Medication Dose Route Stop Time Status Admin Acetaminophen 650 MG Q4P PRN 09/27 1600 AC 10/06 PO 1818 Amlodipine Besylate 10 MG DAILY 09/24 0330 AC 10/08 PO 0753 Atorvastatin Calcium 40 MG 1700 09/24 1700 AC 10/08 PO 1534 Calcium Acetate 667 MG WM 09/24 1708 AC 10/08 PO 1534 Epoetin Chu 15,000 U ONCE A WEEK 10/03 1000 AC 10/03 MI 1052 Fenofibrate 145 MG DAILY 09/24 0900 AC 10/08 PO 0750 Ferric Sodium 125 MG Q48 09/27 1500 AC 10/07 Gluconate Complex IV 10/11 0959 0903 Sodium Chloride 100 ML Furosemide 120 MG BID 10/08 2100 AC 10/08 PO 2043 Furosemide 120 MG Q8 10/04 2200 DC 10/08 Sodium Chloride 50 ML IV 0639 Heparin Sodium 5,000 UNIT Q8 09/24 0600 AC 10/09 (Porcine) MI 0638 Hydralazine HCl 50 MG 0600,1200,1800,2300 10/06 1800 AC 10/09 PO 0638 Insulin Aspart 0 TIDAC 10/01 1200 AC 10/08 MI 1713 Magnesium Oxide 400 MG BID 09/27 0900 DC 10/08 PO 0750 Metaxalone 800 MG TID 09/24 0900 AC 10/08 PO 2044 Metolazone 10 MG 0530,2130 10/03 2130 MI 10/08 PO 0557 Metoprolol Tartrate 50 MG BID 10/05 2100 AC 10/08 PO 2051 Mupirocin 1 MEI TID 10/06 1540 AC 10/08 TOP 2217 Potassium Chloride 40 MEQ BID 10/08 1000 DC 10/08 PO 10/08 Sevelamer Carbonate 1,600 MG WM 09/24 1711 AC 10/08 PO 1533 Sodium Bicarbonate 1,950 MG TID 09/26 1400 AC 10/08 PO 204 Sodium Hypochlorite 1 MEI BID 09/25 1100 AC 10/07 TOP 0758 Tramadol HCl 50 MG Q8P PRN 10/01 1045 DC 10/06 PO 211 Trazodone HCl 100 MG QPM 09/27 2100 AC 10/08 PO 204 Last 24 Hrs of Lab/[place] Results Last 24 Hrs of Labs/Mics: Laboratory Tests 10/09/17 0634: Sodium Pending, Potassium Pending, Chloride Pending, Carbon Dioxide Pending, Anion Gap Pending, BUN Pending, Creatinine Pending, BUN/Creatinine Ratio Pending , Magnesium Pending, CBC w Diff Pending, WBC Pending, RBC Pending, Hgb Pending, Hct Pending, MCV Pending, MCH Pending, MCHC Pending, RDW Pending, Plt Count Pending, MPV Pending Assessment/Plan Assessment: Mr Urban is a 80-year-old man w/ a PMHx of 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 Pertinent lab findings: WBC 9.4, hemoglobin 9.9-->10.3, platelets 181 Sodium 141, potassium 4.4, anion gap 12 BUN 57 (09/23/2017)-->88(10/09/2017) Sr Cr 5.0 (09/23/2017)-->5.8(10/09/2017) Phos 7.3 (09/23/2017)--> 6.3 (10/01/2017)-->5.5(10/03/2017) Mg 1.7 (09/23/2017)--> 2.3 (10/07/2017) HCO3 32 (10/07/2017)-->36 (10/07/2017) likely contraction alkalosis. ProBNP 71767 Troponin 0.01,0.01 Liver chemistries-AST 20, ALT 19, alkaline phosphatase 111, albumin 2.9 Urinalysis revealed urine protein greater than 100, ULE small, WBC 5-10. Etiology in his case is likely diabetic nephropathy, and other causes such as obesity induced FSG or obstructive nephropathy. He is clearly in volume overload , and unsure if the pt couldnt diurese in the past on his current diuretics/ diuretic resistance. Serum creatinine is stable at this time, and has been aggressively diuresed with intravenous furosemide, which has been changed to po furosemide. Urine output in the last 24 hrs 5 L. Below is the plan: 1. Stage IV/V CKD- He was being diuresed using metolazone and bumetanide, was changed to combination of metolazone and furosemide, to make sure that he is adequately diuresed. As per the department clinician, Albumin was discontinued. Continue Epogen 15,000U weekly Continue Ferrlecit 125mg IV every other day x8 doses. Continue Phoslo Strict I/Os and daily weights. Aranda placed 09/26/[address] Cancino. As per Dr. Cancino, Aranda catheter could be removed. DC order placed. avoid nephrotoxic meds. 1300mg sodium bicarb QID. He continues to have slight contraction alkalosis, given furosemide use. 2. Acute on chronic HFpEF strict I/Os. Please check standing daily weights. The daily weights recorded, dont appear to have a pattern. daily accurate weights continue metoprolol, as the BP tolerates. 3. Type 2 DM accuchecks continue ISS 4. Left heel non-healing ulcer/chest furuncle wound consult. Change dressing every third day. Surgery consulted, recomending heat application, will continue to monitor. 5. Acute pseudo gout Orthopedic surgeon was consulted. Completed the course of prednisone. IV tylenol for pain control. DVT ppx sc heparin full code renal dialysis diet Anticipated discharge today. Discussed w/ the pt. Problem List: 1. Diabetes 2. Bilateral pleural effusion Pain Ratin Pain Location: RLE Pain Goal: Pain 4 or less Pain Plan: tylenol prn Tomorrow's Labs & Rationales: no labs necessary Rebecca Geiger 10/09/17 1009: Attending MD Review Statement Attending Statement Attending MD Statement: examined this patient, discuss w/resident/PA/NETWORK PRICING CONSULTANT, agreed w/resident/PA/NETWORK PRICING CONSULTANT, discussed with family, reviewed EMR data (avail), discussed with nursing, discussed with case mgmt, reviewed images, amended to note Attending Assessment/Plan: Patient seen/examined bedside. Patient denies any new complaints. He is receving PO diuretics and able to walk upto commode. He is advised to work with Physical therapy at rehab facility and follow his outpatient department clinician at [facility] for peritoneal dialysis. He is vitally stable for discharge. FOLLOW UP Nephrology Dr Pradhan at [facility] for peritoneal dialysis.
[2017-10-09] MEDS ORDERED: NOVOLOG100 UNIT/2 SC ×3 (07:16→07:19)
[2017-10-09 08:08] LABS: ABSOLUTE BASOPHIL COUNT 0 /CUMM (0.0-0.2); ABSOLUTE EOSINOPHIL COUNT 0 /CUMM (0.0-0.7); ABSOLUTE GRANULOCYTE CT 6.6 /CUMM (1.4-6.5); ABSOLUTE LYMPH COUNT 0.9 /CUMM (1.2-3.4); BASOPHIL % 0 % (0.0-2.0); EOSINOPHIL % 0.4 % (0-5); GRANULOCYTE % 77.5 % (42.2-75.2); HEMATOCRIT 33.4 % (42-52); MEAN CORPUSCULAR HGB 29.6 PG (27.0-31.0); MEAN CORPUSCULAR HGB CONC 31.8 G/DL (33.0-37.0); MEAN CORPUSCULAR VOLUME 93.1 FL (80.0-94.0); MEAN PLATELET VOLUME 9.2 FL (7.4-10.4); PLATELET COUNT 191 /CUMM (130-400); RBC DISTRIBUTION WIDTH 16.9 % (11.5-14.5); RED BLOOD CELL CT 3.59 /CUMM (4.70-6.10); WHITE BLOOD CELL COUNT 8.6 /CUMM (4.8-10.8)
--- NOTE | 2017-10-09 09:40 | PN- Nephrology ---
Assessment/Plan Nephrology Assessment: 1. CKD: advanced/ESRD, stage 5, due to DN; stable GFR w/o dialysis indication 2. Volume overload: improved w hi dose diuretics --> wt now down ~ 60 lbs 3. Met alk: diuretic induced 3. Anemia: CAITLIN & IV Fe Suggestion: 1. Lower Lasix 120 mg po qday 2. OK for d/c from renal perspective w outpt f/u re ERSD/dialysis planning Subjective Subjective: No SOB No uremic sx Aranda out & passing urine Objective Vital Signs and I&Os Vital Signs Date Time Temp Pulse Resp B/P B/P Pulse O2 O2 Flow FiO2 Mean Ox Delivery Rate 10/09 0845 94 Nasal 2.0L Cannula 10/09 0758 67 150/60 10/09 0758 67 150/70 10/09 0638 64 158/70 10/09 0632 99.0 66 20 158/70 92 Nasal 2.0L Cannula 10/09 0017 63 92 10/08 2223 60 93 10/08 2221 60 166/68 10/08 2144 99.1 69 20 146/72 93 Nasal 1.5L Cannula 10/08 2056 Nasal 2.0L Cannula 10/08 2051 68 146/72 10/08 1717 69 158/60 10/08 1611 94 Nasal 2.0L Cannula 10/08 1514 98.6 61 20 160/64 94 10/08 1105 63 154/70 10/08 1053 Nasal 3.0L Cannula 10/08 1039 Nasal 3.0L Cannula Intake & Output 10/09 1600 10/09 0400 10/08 1600 10/08 0400 10/07 1600 10/07 0400 Intake Total 400 62 800 300 Output Total 1050 1000 3350 1950 3900 1000 Balance -1050 -1000 -2950 -1888 -3100 -700 Intake, IV 62 100 Intake, Oral 400 700 300 Number 1 1 1 2 Bowel Movements Output, Urine 1050 1000 3350 1950 3900 1000 Patient 268 lb 265 lb 276 lb 283 lb Weight Weight Bed scale Chair scale Bed scale Measurement Method Physical Exam General Appearance: well developed/nourished, no apparent distress, alert, awake Head: atraumatic, normal appearance Ears, Nose, Throat: normal ENT inspection Neck: normal inspection Respiratory: no respiratory distress, quiet respiration, decreased R base Cardiovascular: regular rate/rhythm, friction rub (none) Abdomen: soft, non-tender, no organomegaly Extremities: swelling Neurologic/Psychiatric: awake, alert Skin: intact, normal color Lymphatic: no anterior cervical ashlyn Current Medications: Current Medications Sig/Jose Angel Start time Last Medication Dose Route Stop Time Status Admin Acetaminophen 650 MG Q4P PRN 09/27 1600 AC 10/09 PO 0834 Amlodipine Besylate 10 MG DAILY 09/24 0330 AC 10/09 PO 0758 Atorvastatin Calcium 40 MG 1700 09/24 1700 AC 10/08 PO 1534 Calcium Acetate 667 MG WM 09/24 1708 AC 10/09 PO 0800 Epoetin Chu 15,000 U ONCE A WEEK 10/03 1000 10/03 ND 1052 Fenofibrate 145 MG DAILY 09/24 0900 10/09 PO 0758 Ferric Sodium 125 MG Q48 09/27 1500 10/09 Gluconate Complex IV 10/11 0959 0858 Sodium Chloride 100 ML Furosemide 120 MG BID 10/08 2100 10/09 PO 0758 Furosemide 120 MG Q8 10/04 2200 LA 10/08 Sodium Chloride 50 ML IV 0639 Heparin Sodium 5,000 UNIT Q8 09/24 0600 10/09 (Porcine) SC 0638 Hydralazine HCl 50 MG 0600,1200,1800,2300 10/06 1800 10/09 PO 0638 Insulin Aspart 0 TIDAC 10/01 1200 10/08 SC 1713 Magnesium Oxide 400 MG BID 09/27 0900 LA 10/08 PO 0750 Metaxalone 800 MG TID 09/24 0900 10/09 PO 0758 Metolazone 10 MG 0530,2130 10/03 2130 LA 10/08 PO 0557 Metoprolol Tartrate 50 MG BID 10/05 2100 10/09 PO 0758 Mupirocin 1 MEI TID 10/06 1540 AC 10/09 TOP 0800 Potassium Chloride 40 MEQ BID 10/08 1000 DC 10/08 PO 10/08 210 2043 Sevelamer Carbonate 1,600 MG WM 09/24 1711 10/09 PO 0757 Sodium Bicarbonate 1,950 MG TID 09/26 1400 AC 10/09 PO 0757 Sodium Hypochlorite 1 MEI BID 09/25 1100 AC 10/09 TOP 0800 Tramadol HCl 50 MG Q8P PRN 10/01 1045 LA 10/06 PO 2111 Trazodone HCl 100 MG QPM 09/27 2100 AC 10/08 PO 2042 Results Pertinent Lab Results: Laboratory Tests 10/09 10/08 0634 0618 Chemistry Sodium (137 - 145 mmol/L) 141 142 Potassium (3.5 - 5.1 mmol/L) 4.0 3.4 L Chloride (98 - 107 mmol/L) 95 L 97 L Carbon Dioxide (22 - 30 mmol/L) 36 H 34 H Anion Gap (5 - 16) 10 11 BUN (9 - 20 mg/dL) 80 H 77 H Creatinine (0.7 - 1.2 mg/dL) 5.8 *H 5.7 *H Estimated GFR (>60 ml/min) 10 L 10 L BUN/Creatinine Ratio (7 - 25 %) 13.8 13.5 Magnesium (1.6 - 2.3 mg/dL) 2.3 Hematology CBC w Diff NO MAN DIFF REQ NO MAN DIFF REQ WBC (4.8 - 10.8 /CUMM) 8.6 8.8 RBC (4.70 - 6.10 /CUMM) 3.59 L 3.38 L Hgb (14.0 - 18.0 G/DL) 10.6 L 10.1 L Hct (42 - 52 %) 33.4 L 31.4 L MCV (80.0 - 94.0 FL) 93.1 92.9 MCH (27.0 - 31.0 PG) 29.6 30.0 MCHC (33.0 - 37.0 G/DL) 31.8 L 32.3 L RDW (11.5 - 14.5 %) 16.9 H 17.1 H Plt Count (130 - 400 /CUMM) 191 176 MPV (7.4 - 10.4 FL) 9.2 9.0 Gran % (42.2 - 75.2 %) 77.5 H 79.0 H Lymphocytes % (20.5 - 51.1 %) 10.7 L 10.0 L Monocytes % (1.7 - 9.3 %) 11.4 H 10.0 H Eosinophils % (0 - 5 %) 0.4 0.6 Basophils % (0.0 - 2.0 %) 0 0.4 Absolute Granulocytes (1.4 - 6.5 /CUMM) 6.6 H 6.9 H Absolute Lymphocytes (1.2 - 3.4 /CUMM) 0.9 L 0.9 L Absolute Monocytes (0.10 - 0.60 /CUMM) 1.0 H 0.9 H Absolute Eosinophils (0.0 - 0.7 /CUMM) 0 0.1 Absolute Basophils (0.0 - 0.2 /CUMM) 0 0 06/25 0634 Chemistry Sodium (137 - 145 mmol/L) 143 Potassium (3.5 - 5.1 mmol/L) 3.5 Chloride (98 - 107 mmol/L) 98 Carbon Dioxide (22 - 30 mmol/L) 32 H Anion Gap (5 - 16) 13 BUN (9 - 20 mg/dL) 79 H Creatinine (0.7 - 1.2 mg/dL) 5.9 *H Estimated GFR (>60 ml/min) 10 L BUN/Creatinine Ratio (7 - 25 %) 13.4 Magnesium (1.6 - 2.3 mg/dL) 2.4 H Hematology CBC w Diff NO MAN DIFF REQ WBC (4.8 - 10.8 /CUMM) 6.8 RBC (4.70 - 6.10 /CUMM) 3.19 L Hgb (14.0 - 18.0 G/DL) 9.6 L Hct (42 - 52 %) 29.8 L MCV (80.0 - 94.0 FL) 93.3 MCH (27.0 - 31.0 PG) 29.9 MCHC (33.0 - 37.0 G/DL) 32.1 L RDW (11.5 - 14.5 %) 16.9 H Plt Count (130 - 400 /CUMM) 157 MPV (7.4 - 10.4 FL) 8.6 Gran % (42.2 - 75.2 %) 75.1 Lymphocytes % (20.5 - 51.1 %) 14.7 L Monocytes % (1.7 - 9.3 %) 9.3 Eosinophils % (0 - 5 %) 0.8 Basophils % (0.0 - 2.0 %) 0.1 Absolute Granulocytes (1.4 - 6.5 /CUMM) 5.1 Absolute Lymphocytes (1.2 - 3.4 /CUMM) 1.0 L Absolute Monocytes (0.10 - 0.60 /CUMM) 0.6 Absolute Eosinophils (0.0 - 0.7 /CUMM) 0.1 Absolute Basophils (0.0 - 0.2 /CUMM) 0 Imaging/Other Studies: CXR: 1. Cardiomegaly and central pulmonary vascular congestion without pulmonary edema. 2. Pleural effusions appear decreased compared to 0 . 3. The aeration of the retrocardiac region of left lower lobe has improved. The residual opacity probably represents a combination of the pleural effusion and compressive atelectasis.
--- NOTE | 2017-10-09 09:53 | Patient Discharge Instructions ---
Discharge Instructions General Discharge Information You were seen/treated for: - Kidney disease - Volume overload Watch for these problems: - worsening shortness of breath - Chest pain, palpitations. - Worsening leg swellings, abdominal distention Special Instructions: - Please see your PCP within one week of discharge - Please see your supervisor riprap placing within one week of discharge. - Please take your medications as prescribed. - Please check BEP every week, and copy results to the PCP. - Please discuss with your tobacco prevention health educator, if Aspirin should be prescribed. Acute Coronary Syndrome Inclusion Criteria At DC or during hospital stay patient has or had the following: ACS DIAGNOSIS No Discharge Core Measures Meds if any: Prescribed or Continued at Discharge Meds if any: NOT Prescribed or Continued at Discharge Congestive Heart Failure Inclusion Criteria At DC or during hospital stay patient has or had the following: CHF DIAGNOSIS No Discharge Core Measures Meds if any: Prescribed or Continued at Discharge Meds if any: NOT Prescribed or Continued at Discharge Cerebrovascular accident Inclusion Criteria At DC or during hospital stay patient has or had the following: CVA/TIA Diagnosis No Discharge Core Measures Meds if any: Prescribed or Continued at Discharge Meds if any: NOT Prescribed or Continued at Discharge Venous thromboembolism Inclusion Criteria VTE Diagnosis No VTE Type NONE VTE Confirmed by (Test) NONE Discharge Core Measures - Per Current guidelines, there needs to be overlap - treatment for the first 5 days of Warfarin therapy. - If discharged on Warfarin prior to 5 days of - overlap therapy, the patient will need to be - assessed for post discharge needs including - *Post discharge parental anticoagulation - *Warfarin and/or parental anticoagulation education - *Follow up date to check INR post discharge At least 5 days overlap therapy as Inpatient No Meds if any: Prescribed or Continued at Discharge Note: Overlap Therapy is Warfarin and Anticoagulant Meds if any: NOT Prescribed or Continued at Discharge
--- NOTE | 2017-10-09 10:20 | PN- Cardiology ---
Subjective Subjective: Clinically about the same. No change in cardiovascular status. Objective Vital Signs and I&Os Vital Signs Date Time Temp Pulse Resp B/P B/P Pulse O2 O2 Flow FiO2 Mean Ox Delivery Rate 10/09 0845 94 Nasal 2.0L Cannula 10/09 0758 67 150/60 10/09 0758 67 150/70 10/09 0638 64 158/70 10/09 0632 99.0 66 20 158/70 92 Nasal 2.0L Cannula 10/09 0017 63 92 10/08 2223 60 93 10/08 2221 60 166/68 10/08 2144 99.1 69 20 146/72 93 Nasal 1.5L Cannula 10/08 2056 Nasal 2.0L Cannula 10/08 205 68 146/72 10/08 1717 69 158/60 10/08 1611 94 Nasal 2.0L Cannula 10/08 1514 98.6 61 20 160/64 94 10/08 1105 63 154/70 10/08 1053 Nasal 3.0L Cannula 10/08 1039 Nasal 3.0L Cannula Intake & Output 10/09 1600 10/09 0800 10/09 0000 10/08 1600 10/08 0800 10/08 0000 Intake Total 400 62 Output Total 1050 1000 2350 1000 1950 Balance -1050 -1000 -1949 -1000 -1888 Intake, IV 62 Intake, Oral 400 Number 1 1 1 Bowel Movements Output, Urine 1050 1000 2350 1000 1950 Patient 268 lb 265 lb 276 lb Weight Weight Bed scale Chair scale Measurement Method Physical Exam: General Appearance: well developed/nourished, alert, awake, oriented Head: normal HEENT: Normal Neck: supple, JVP normal, carotid upstrokes normal bilaterally, no masses or thyromegaly Respiratory: chest non-tender, clear to auscultation and percussion bilaterally Cardiovascular: regular rate/rhythm, normal S1, S2, 1/6 systolic murmur Abdomen: normal bowel sounds, soft, non-tender Extremities: normal inspection, improving edema Vascular: Pulses are 2+ and equal bilaterally Neurologic: Grossly normal/nonfocal Current Medications: Current Medications Sig/Jose Angel Start time Last Medication Dose Route Stop Time Status Admin Acetaminophen 650 MG Q4P PRN 09/27 1600 AC 10/09 PO 0834 Amlodipine Besylate 10 MG DAILY 09/24 0330 AC 10/09 PO 0758 Atorvastatin Calcium 40 MG 1700 09/24 1700 AC 10/08 PO 1534 Calcium Acetate 667 MG WM 09/24 1708 AC 10/09 PO 0800 Epoetin Chu 15,000 U ONCE A WEEK 10/03 1000 10/03 MD 1052 Fenofibrate 145 MG DAILY 09/24 0900 10/09 PO 0758 Ferric Sodium 125 MG Q48 09/27 1500 AC 10/09 Gluconate Complex IV 10/11 0959 0858 Sodium Chloride 100 ML Furosemide 120 MG 7:30 AM, & 4:30 PM 10/09 1630 UNVr PO Furosemide 120 MG BID 10/08 2100 DC 10/09 PO 0758 Heparin Sodium 5,000 UNIT Q8 09/24 0600 AC 10/09 (Porcine) SC 0638 Hydralazine HCl 50 MG 0600,1200,1800,2300 10/06 1800 10/09 PO 0638 Insulin Aspart 0 TIDAC 10/01 1200 10/08 MD 1713 Magnesium Oxide 400 MG BID 09/27 0900 DC 10/08 PO 0750 Metaxalone 800 MG TID 09/24 0900 10/09 PO 0758 Metoprolol Tartrate 50 MG BID 10/05 2100 10/09 PO 0758 Mupirocin 1 MEI TID 10/06 1540 AC 10/09 TOP 0800 Potassium Chloride 40 MEQ BID 10/08 1000 DC 10/08 PO 10/08 210 2043 Sevelamer Carbonate 1,600 MG 09/24 1711 10/09 PO 0757 Sodium Bicarbonate 1,950 MG TID 09/26 1400 10/09 PO 0757 Sodium Hypochlorite 1 MEI BID 09/25 1100 10/09 TOP 0800 Tramadol HCl 50 MG Q8P PRN 10/01 1045 DC 10/06 PO 2111 Trazodone HCl 100 MG QPM 09/27 2100 10/08 PO 2043 Results Last 48 Hrs of Labs/Mics: Laboratory Tests 10/09/17 0634: Anion Gap 10, Estimated GFR 10 L, BUN/Creatinine Ratio 13.8, Magnesium 2.3, CBC w Diff NO MAN DIFF REQ, RBC 3.59 L, MCV 93.1, MCH 29.6, MCHC 31.8 L, RDW 16.9 H, MPV 9.2, Gran % 77.5 H, Lymphocytes % 10.7 L, Monocytes % 11.4 H, Eosinophils % 0.4, Basophils % 0, Absolute Granulocytes 6.6 H, Absolute Lymphocytes 0.9 L, Absolute Monocytes 1.0 H, Absolute Eosinophils 0, Absolute Basophils 0 10/08/17617: Anion Gap 11, Estimated GFR 10 L, BUN/Creatinine Ratio 13.5, CBC w Diff NO MAN DIFF REQ, RBC 3.38 L, MCV 92.9, MCH 30.0, MCHC 32.3 L, RDW 17.1 H, MPV 9.0, Gran % 79.0 H, Lymphocytes % 10.0 L, Monocytes % 10.0 H, Eosinophils % 0.6, Basophils % 0.4, Absolute Granulocytes 6.9 H, Absolute Lymphocytes 0.9 L, Absolute Monocytes 0.9 H, Absolute Eosinophils 0.1, Absolute Basophils 0 Assessment/Plan Assessment/Plan Assessment: 1. Acute on chronic HFpEF-the patient is approximately 16 L negative over the last 5 days and his weight is down approximately 15 pounds more 2. History of coronary disease, status post bypass surgery 3. Diabetes 4. CKD 5. Normocytic anemia Recommendations: 1. Continue to follow nephrology recommendations 2. Continue oral diuretics as recommended by nephrology 3. Monitor input and output with daily weights 4. Check basic metabolic profile daily Continue telemetry? Yes
[2017-10-09] MEDS ORDERED: LASIX40 M1 PO ×2 (10:25→10:30)
[2017-10-09 11:51] VITALS: BP 148/70
== END 2017-10-09 14:15 | DRG 194 ==
LOC: ERH 21:13 → ERHI 09-24 00:10 → 1NO 09-24 00:10 → ENRESERV 09-24 00:51 → 1NO 09-24 02:50 → ENTRNSPT 09-26 09:56 → EDTRNSPTSTS 09-26 10:10 → CMPTRNSPT 09-26 10:30 → 1NO 09-27 20:38 → ENPENDDIS 10-09 10:42 → 1NO 10-09 14:15
PROVIDERS: Emergency Medicine; Internal Medicine; Internal Medicine Endocrinology, Diabetes & Metabolism; Student in an Organized Health Care Education/Training Program
PROC: 0T9B80Z Drainage of Bladder with Drainage Device, Via Natural or Artificial Opening Endoscopic (ICD-10-PCS; principal; 2017-09-26)
DX: I13.2 Hypertensive heart and chronic kidney disease with heart failure and with stage 5 chronic kidney disease, or end stage renal disease (principal); N18.5 Chronic kidney disease, stage 5; I50.33 Acute on chronic diastolic (congestive) heart failure; E11.22 Type 2 diabetes mellitus with diabetic chronic kidney disease; Z87.891 Personal history of nicotine dependence; E11.621 Type 2 diabetes mellitus with foot ulcer; E66.01 Morbid (severe) obesity due to excess calories; Z68.41 Body mass index [BMI] 40.0-44.9, adult; E87.2 Acidosis; L02.223 Furuncle of chest wall; Z95.1 Presence of aortocoronary bypass graft; J90 Pleural effusion, not elsewhere classified; E83.39 Other disorders of phosphorus metabolism; I25.10 Atherosclerotic heart disease of native coronary artery without angina pectoris; Z98.61 Coronary angioplasty status; Z88.1 Allergy status to other antibiotic agents; Z88.8 Allergy status to other drugs, medicaments and biological substances; E11.42 Type 2 diabetes mellitus with diabetic polyneuropathy; E78.5 Hyperlipidemia, unspecified; Z98.84 Bariatric surgery status; M25.461 Effusion, right knee; M10.9 Gout, unspecified; G47.33 Obstructive sleep apnea (adult) (pediatric); R60.1 Generalized edema; N13.9 Obstructive and reflux uropathy, unspecified; B96.1 Klebsiella pneumoniae [K. pneumoniae] as the cause of diseases classified elsewhere; L97.429 Non-pressure chronic ulcer of left heel and midfoot with unspecified severity; D63.1 Anemia in chronic kidney disease; R09.02 Hypoxemia
CPT/HCPCS: 1NP; 36415; 36592; 71045; 71046; 73560-RT; 74176; 81001; 82436; 87070; 87086; 93005; 93010; 93306; 97110-GO; 97161-GP; 97530-GO; J0131; J0885-EC; J1170; J1644; J1940; J3250; P9047

== ENCOUNTER 2017-11-09 14:24 | Inpatient (IN) | payer OTHER ==
[~2017-11-09] VITALS: Ht 181.6 cm; Wt 126.7 kg
[~2017-11-09 14:24] MED LIST: AMLODIPINE BESY10 M1 PO; ATORVASTATIN CA40 M1 PO; BUMETANIDE2 M1 PO; CALCIUM ACETAT667 M3 PO; FENOFIBRATE145 M1 PO; HYDRALAZINE HCL50 M1 PO; LASIX40 M1 PO; METAXALONE800 M1 PO; METOPROLOL TART25 M1 PO; METOPROLOL TART50 M1 PO; NOVOLOG100 UNIT/2 SC; PROCRIT20000 UNIT SC; RENVELA800 M1 PO; SODIUM BICARBO325 M1 PO; SODIUM BICARBO650 M1 PO; TRAZODONE HCL100 M1 PO; TYLENOL EXTRA500 M2 PO; VELTASSA16.8 GM PO
[2017-11-09 14:48] LABS: ABSOLUTE BASOPHIL COUNT 0 /CUMM (0.0-0.2); ABSOLUTE EOSINOPHIL COUNT 0 /CUMM (0.0-0.7); ABSOLUTE GRANULOCYTE CT 11.3 /CUMM (1.4-6.5); ABSOLUTE LYMPH COUNT 0.4 /CUMM (1.2-3.4); ABSOLUTE MONOCYTE COUNT 0.8 /CUMM (0.10-0.60); BASOPHIL % 0 % (0.0-2.0); EOSINOPHIL % 0 % (0-5); HEMATOCRIT 29.2 % (42-52); MEAN CORPUSCULAR HGB 29.5 PG (27.0-31.0); MEAN CORPUSCULAR HGB CONC 32.7 G/DL (33.0-37.0); MEAN CORPUSCULAR VOLUME 90.5 FL (80.0-94.0); MEAN PLATELET VOLUME 9.2 FL (7.4-10.4); PLATELET COUNT 199 /CUMM (130-400); RBC DISTRIBUTION WIDTH 15.8 % (11.5-14.5); RED BLOOD CELL CT 3.23 /CUMM (4.70-6.10); WHITE BLOOD CELL COUNT 12.5 /CUMM (4.8-10.8)
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
[2017-11-09 15:11] LABS: GRANULOCYTE % 90.4 % (42.2-75.2)
--- NOTE | 2017-11-09 15:16 | RADIOLOGY REPORT ---
EXAMINATION: XR PORTABLE CHEST CLINICAL INFORMATION: Fever, dyspnea. COMPARISON: Chest radiography 10/07/2017. TECHNIQUE: Portable frontal view of the chest was obtained. FINDINGS: The lungs are well expanded. There is diffuse hazy parenchymal consolidation throughout the right lung. There is left lower lung consolidation. No pneumothorax or evidence of large pleural effusion. Suspected calcified granuloma in the left lower lung. Mediastinal contours have not significant changed compared to prior exam. Sternotomy wires and surgical clips overlie the thorax. No acute osseous abnormalities. IMPRESSION: Right greater than left lung parenchymal consolidation, consider multifocal pneumonia or pulmonary edema.
[2017-11-09] MEDS ORDERED: HYDRALAZINE HCL50 M1 PO (15:36)
[2017-11-09] MEDS ORDERED: AMMONIUM LACTA385 GM TOP (15:37)
[2017-11-09] MEDS ORDERED: TRAZODONE HCL50 M1 PO (15:37)
[2017-11-09] MEDS ORDERED: LOPRESSOR50 M1 PO (15:38)
[2017-11-09] MEDS ORDERED: LIDOCAINE1 EACH TOP (15:39)
[2017-11-09] MEDS ORDERED: METOLAZONE5 M1 PO (15:39)
--- NOTE | 2017-11-09 16:14 | History & Physical ---
Waylon Nick MD 11/09/17 5604: General Information and HPI MD Statement: I have seen and personally examined VIANEY ZAMORA and documented this H&P. The patient is a 62 year old M who presented with a patient stated chief complaint of difficulty breathing. Source of Information: patient, old records Exam Limitations: clinical condition History of Present Illness: 80 year old male with PMH significant for insulin dependent DMII c/b neuropathy/ retinopathy, HFpEF, CKD stage IV/V on aranesp, procrit, and sevalamer, secondary to diabetic and obstructive nephropathy, h/o urethral strictures incontinent of urine (with March placed by urology last admission), former smoker, CAD s/p CABG (2005), HTN, KALE on CPAP, nonhealing left heel ulcer and previous osteomyelitis, last admitted tp telemetry from 09/24- for ~20 pound weight gain, and CHF from volume overload related to CKD requiring intravenous diuresis. He was brought in by ambulance today after his visiting nurse noticed him to be extremely short of breath with fever. He had a fall earlier in the day but refused care and denied LOC or head strike. He had desaturated to an SpO2 < 80% in the field and was placed on nonrebreather. In the ED, he was saturating 88% on nonrebreather and started on BiPAP and febrile to 102.6. He reports that his symptoms first started with a cough for the past two weeks. He reports that is intermittently productive of "black tar" but denies hemoptysis or clots. He then developed a fever, chills, rhinorrhea, and diarrhea for the past week. He denies any sick contacts, recent travel, or other upper respiratory symptoms. For the past two days, he has developed nausea, vomiting and poor PO intake. He denies any chest pain, tightness or palpitations. He states the edema is his legs is approximately the same but his abdomen is much more distended. He had an appointment with his PCP Low tomorrow for the fever, and routine visit with summer analyst Dr. Cope in [place] this week. He also follows with Dr. Pradhan nephrology, and Dr. Muñoz, endocrinology. He reports his normal weight is approximately 250lbs and is planning on starting peritoneal dialysis. At baseline, he ambulates with a walker, and has visiting nursing and aides for help with medications, bathing, and cleaning. In the ED, he was febrile with hypoxemia and increased work of breathing for which he was placed on BiPAP, no ABG performed. His chest x-ray showed right greater than left lung consolidation, possible multilobar pneumonia. Blood cultures were drawn and he was treated with 1g IV Vancomycin and 2g IV Ceftriaxone. His blood pressure, heart rate, and lactic acid were all within normal limits. Other labs were notable for leukocytosis with left shift, potassium 2.9, BUN 94, creatinine 6.6, bicarbonate 19, anion gap 18, phosphorus 7.9, and troponin of 0.27. He was admitted to critical care for sepsis from multilobar pneumonia, possibly health care associated, acute hypoxemic respiratory failure requiring NIPPV, and type II NSTEMI. Allergies/Medications Allergies: Coded Allergies: baclofen (LOSE EYESIGHT AND MOTOR SKILLS PER PT 09/23/17) ciprofloxacin (From CIPRO) (FEVER PT PT 09/23/17) lisinopril (COUGH PER PT 09/23/17) Compliance With Home Meds: GOOD Past History Travel History Traveled to [place] past 21 day No Medical History Neurological: peripheral neuropathy EENT: NONE Cardiovascular: hypertension, CABG Respiratory: NONE Gastrointestinal: GASTRIC BYPASS 2017 Hepatic: NONE Renal: KIDNEY DISEASE STAGE 4 Musculoskeletal: osteoarthritis, leg injury r/t accident Psychiatric: substance abuse, (history 30+ years) Endocrine: diabetes Blood Disorders: DVT Cancer(s): NONE History of MRSA: No History of VRE: No History of CDIFF: No Surgical History Surgical History: CABG, gastric bypass, right orchiectomy and multiple urological surgeries Past Family/Social History Family History Relations & Conditions if any FATHER Coronary artery disease Psychosocial History Who Do You Live With? self Services at Home: Home Health Aide, Nursing Primary Language: Maori Smoking Status: Former Smoker ETOH Use: denies use Illicit Drug Use: denies illicit drug use Functional Ability ADLs Independent: dressing, eating. Needs Assist: toileting, bathing. Ambulation: walker IADLs Independent: food prep. Needs Assist: shopping, housework, medication admin. 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 EENTM: Denies: nasal congestion, nasal pain, throat pain. Cardiovascular: Reports: peripheral edema. Denies: chest pain, palpitations. Respiratory: Reports: cough, short of breath, sputum production. GI: Reports: diarrhea, distention, nausea, vomiting. Denies: abdominal pain, constipation, melena. Genitourinary: Denies: dysuria, frequency. Musculoskeletal: Reports: back pain. Skin: Reports: see HPI. Neurological/Psychological: Reports: numbness, weakness. Hematologic/Endocrine: Denies: bruising, bleeding. Immunologic/Allergic: Reports: no symptoms. All Other Systems: Reviewed and Negative Exam & Diagnostic Data Last 24 Hrs of Vital Signs/I&O Vital Signs Date Time Temp Pulse Resp B/P B/P Pulse O2 O2 Flow FiO2 Mean Ox Delivery Rate 11/09 1600 99.3 67 24 141/66 94 BIPAP 60% 11/09 1538 67 97 11/09 1441 102.6 88 20 145/84 88 Non 100% ReBreather 11/09 1435 88 Non 100% ReBreather Intake & Output 11/09 1600 11/09 0800 11/09 0000 Intake Total 0 Output Total Balance 0 Intake, Oral 0 Physical Exam General Appearance Alert, Oriented X3, Cooperative, Mild Distress, on bipap Skin left heel wound Skin Temp/Moisture Exam: Warm/Dry Sepsis Skin Exam (color): Normal for Ethnicity Cardiovascular Regular Rate, Normal S1, Normal S2, No Murmurs Lungs b/l rhonchi L>R and scattered left end expiratory wheezing, no crackles Abdomen Normal Bowel Sounds, Soft, No Tenderness, distended, dull to percussion Extremities No Clubbing, No Cyanosis, Normal Pulses, 3+ pitting edema to the knees, some sacral edema chronic left heel nonhealing wound with serous drainage , no erythema or pus Sepsis Peripheral Pulse Location: Radial Sepsis Peripheral Pulse Exam: Normal Sepsis Cap Refill Exam: <2 Sec Last 24 Hrs of Labs/[place]: Laboratory Tests 11/09/17 1728: Lactic Acid Cancelled 11/09/17 1430: Anion Gap 18 H, Estimated GFR 9 L, BUN/Creatinine Ratio 14.2, Glucose 106 H, Hemoglobin A1c Pending, Lactic Acid 1.1, Calcium 8.2 L, Phosphorus 7.9 H, Magnesium 1.6, Total Bilirubin 0.6, AST 28, ALT 22, Alkaline Phosphatase 67, Troponin I 0.27 *H, [id number] Pept 18722 H, Total Protein 6.0 L, Albumin 2.9 L, Globulin 3.1, Albumin/Globulin Ratio 0.9 L, CBC w Diff NO MAN DIFF REQ, RBC 3.23 L, MCV 90.5, MCH 29.5, MCHC 32.7 L, RDW 15.8 H, MPV 9.2, Gran % 90.4 H, Lymphocytes % 3.0 L, Monocytes % 6.6, Eosinophils % 0, Basophils % 0, Absolute Granulocytes 11.3 H, Absolute Lymphocytes 0.4 L, Absolute Monocytes 0.8 H, Absolute Eosinophils 0, Absolute Basophils 0 Microbiology 11/09 173 UPPER RESP: Surveillance Culture - RECD 11/09 173 GI: Surveillance Culture - RECD 11/09 1658 LOWER RESP: Respiratory Culture - COLB 11/09 1658 LOWER RESP: Gram Stain - COLB 11/10 1655 URINE ROUT: Legionella Antigen - COLB 11/10 1655 URINE ROUT: Streptococcus pneumoniae Antigen (M - COLB 11/10 1655 URINE ROUT: Urine Culture - COLB 11/09 1440 BLOOD: Blood Culture - RECD 11/09 1430 BLOOD: Blood Culture - RECD Diagnostic Data EKG Results sinus rhythm with T wave flattening laterally CXR Results FINDINGS: The lungs are well expanded. There is diffuse hazy parenchymal consolidation throughout the right lung. There is left lower lung consolidation. No pneumothorax or evidence of large pleural effusion. Suspected calcified granuloma in the left lower lung. Mediastinal contours have not significant changed compared to prior exam. Sternotomy wires and surgical clips overlie the thorax. No acute osseous abnormalities. IMPRESSION: Right greater than left lung parenchymal consolidation, consider multifocal pneumonia or pulmonary edema Other Results Echocardiogram 09/2017 CONCLUSIONS Mild left ventricular dilatation. Mild concentric left ventricular hypertrophy. Normal left ventricular ejection fraction visually estimated at >60 Mild left atrial dilatation. Trace mitral regurgitation. Trace aortic regurgitation. Mild tricuspid regurgitation. Mild pulmonic regurgitation. Right ventricular systolic pressure estimated to be elevated at [address] chest and abdomen 09/23/17 Bilateral pleural effusions, moderate volume of ascites, and anasarca suggesting volume overload. The kidneys are atrophic. There is left lower lobe consolidation with air bronchograms. This is at least in part compressive atelectasis from the left pleural effusion but superimposed aspiration or pneumonia are possible as well. There is inguinal lymphadenopathy, pathologically enlarged by short axis size criteria on the left. This is nonspecific, presumably reactive but metastatic lymphadenopathy could be considered if the patient has a known primary malignancy. Evidence of prior granulomatous disease. KIDNEYS AND URETERS: Atrophic kidneys bilaterally. No hydronephrosis. Assessment/Plan Assessment: 80 year old male with PMH significant for insulin dependent DMII c/b neuropathy/ retinopathy, HFpEF, CKD stage IV/V on aranesp, procrit, and sevalamer, secondary to diabetic and obstructive nephropathy, h/o urethral strictures requiring intermittent straight catheterization, CAD s/p CABG (2005), HTN, and KALE on CPAP presented with fever and respiratory distress, acute hypoxemic respiratory failure requiring NIPPV, positive sepsis criteria with chest x-ray suggestive of multilobar pneumonia, elevated troponins and creatinine. Sepsis most likely from multilobar pneumonia: Treating for health care associated, although urinary and skin source with left heel possible Vancomycin 1g administered, ceftriaxone 2g IV administered, ordered 1g of IV ceftazidime Given renal insufficiency, new doses of antibiotics will need to be ordered Follow up blood cultures, sputum and urinalysis and culture Check strep pneumo and legionella urinary antigens Tylenol for fever Repeat chest x-ray tomorrow Trend white count on daily CBC, consider ID consultation if clinical condition worsens Acute hypoxemic respiratory failure: Increased work of breathing, tachypnea, and hypoxemia on presentation Placed on NIPPV BiPAP 16/6 FiO2 0.6 for increased work of breathing Check ABG STAT May need intubation if worsenings but appears comfortable and mentating well on BiPAP TRC evaluation Nebulized albuterol, pulmonary toilet, chest physiotherapy Elevated troponins, h/o CAD s/p CABG: First troponin elevated to 0.27 in the setting of sepsis Lateral T wave flattening on EKG Given aspirin 325mg, continue statin therapy, beta blockade held in the setting of sepsis Repeat serial troponins and EKGs Consider repeat echocardiogram to assess for regional wall motion abnormalities Patient of Dr. Dewitt in [place], can obtain records for nuclear stress testing /cardiac cath Cardiology consulted with Dr. Valles No need for heparin gtt at this time CKD: Creatinine 5.0 and BUN 50s on prior admission BUN 94 and creatinine 6.6 on presentation today Atrophic kidneys on prior CT Patient of Dr. Lizeth Willams, obtain records, awaiting peritoneal dialysis Nephrology consultation Check bladder ultrasound for retention, h/o obstructive uropathy and urethral strictures Continue phosphate binders and oral bicarbonate, calcium and procrit held for now Straight catheterization protocol, consider urology consultation for March placement Holding diuretics and giving 1L of fluids for sepsis Will restart diuretic regimen after 24 hours of antibiotics, improved sepsis, no hypotension Hypokalemia: Potassium 2.9 on presentation Given 10meq IV in the ED Give 40meq K in NS x 1L, repeat electrolytes this evening with next troponin DM: Accuchecks TIDAC/HS, q6h while NPO Regular insulin sliding scale while NPO, change to novolog if diet resumed Check hemoglobin A1C HTN: Hydralazine, norvasc, metoprolol and diuretic regimen held for now due to sepsis Systolic blood pressure currently in the 140s, resume antihypertensives if needed NPO on BIPAP DVT ppx-heparin sc Full code As Ranked By This Provider Problem List: 1. Pneumonia 2. Anasarca 3. Diabetes Core Measures/Misc (12/30) Acute Coronary Syndrome ACS Diagnosis: Yes Last Known EF % 60 No MILKA/ARB d/t Renal Failure No Beta-Dionisio d/t sepsis Congestive Heart Failure Congestive Heart Failure Diagnosis No Cerebrovascular Accident CVA/TIA Diagnosis: No VTE (View Protocol) VTE Risk Factors Age>40 No Mechanical VTE Prophylaxis d/t N/A MechProphylax Ordered No VTE Pharm Prophylaxis d/t NA PharmProphylax ordered Sepsis (View protocol) Sepsis Present: Yes If YES complete Sepsis Event Note If YES complete Sepsis Event Note Rebecca Geiger 11/09/17 1641: General Information and HPI Allergies/Medications Home Med list Acetaminophen (Tylenol Extra Strength) 500 MG TABLET 1 TAB PO Q6 PRN KNEE PAIN (Reported) Amlodipine Besylate 10 MG TABLET 1 TAB PO DAILY HTN (Reported) Ammonium Lactate 12 % CREAM..G. 1 MEI TOP DAILY FEET (Reported) Atorvastatin Calcium 40 MG TABLET 1 TAB PO DAILY CHOL (Reported) Calcium Acetate 667 MG CAPSULE 1 CAP PO TID VITAMIN (Reported) Epoetin Chu (Procrit) 20,000 UNIT/ML VIAL 15,000 U SC ONCE A WEEK anemia Please coordinate with fruit and vegetable packer regarding your weekly dosing. Fenofibrate Nanocrystallized (Fenofibrate) 145 MG TABLET 1 TAB PO DAILY URINE (Reported) Furosemide (Lasix) 40 MG TABLET 120 MG PO DAILY KIDNEY DISEASE Hydralazine HCl 50 MG TABLET 1 TAB PO TID BP (Reported) Insulin Aspart (Novolog) 100 UNIT/ML VIAL 0 UNITS SC TIDAC diabetes BEFORE MEALS Blood Insulin Sugar Units <80 0 81-100 0 101-200 1 201-250 2 251-300 3 301-350 4 351-400 6 >400 Call Doctor Insulin Lispro (Humalog) 100 UNIT/ML VIAL 1 UNIT SC TID DM (Reported) USE DIRECTED Lidocaine 5 % ADH..PATCH 3 PAT TOP DAILY PAIN (Reported) Lidocaine HCl (Xolido) 2 % CREAM.ML. 1 MEI TOP AD TOPICAL ANESTHETIC ( Reported) Metaxalone 800 MG TABLET 1 TAB PO TID PRN MUSCLE SPASMS (Reported) Metolazone 5 MG TABLET 1 TAB PO TUESTHURS BP (Reported) Metoprolol Tartrate (Lopressor) 50 MG TABLET 75 MG PO BID BP (Reported) Patiromer Calcium Sorbitex (Veltassa) 16.8 GRAM POWD.PACK 1 PKG PO DAILY UNK (Reported) Sevelamer Carbonate (Renvela) 800 MG TABLET 2 TAB PO TID KIDNEY (Reported) Sodium Bicarbonate 325 MG TABLET 1,950 MG PO TID KIDNEY DISEASE Trazodone HCl 50 MG TABLET 1 TAB PO QHS PRN SLEEP (Reported) Core Measures/Misc (12/30) Sepsis (View protocol) If YES complete Sepsis Event Note If YES complete Sepsis Event Note Attending MD Review Statement Attending Statement Attending MD Statement: examined this patient, discuss w/resident/PA/BUSINESS TRAINER, agreed w/resident/PA/BUSINESS TRAINER, discussed with family, reviewed EMR data (avail), discussed with nursing, discussed with case mgmt, reviewed images, amended to note Attending Assessment/Plan: Patient wth pmh of CAD/bypass, EF 60%, CHF, DM, CKD/ESRD with fluid overlaod responding to high dose diuretics opted for peritoenal dialysis in past came with sudden onset shortness of breath with fever 102.9 with cough and fluid overlaod. He is on bipap in ER with some improvement in respirations. He is aaox 3 oriented compliant with bipap. Labs with WBC 12.5 hb 9.5 plt 199 Na 141 K 2.9 BUN 94 Cr 6.6 GLU 106 LA 1.1 Trop 0.27 Chest xray with b/l multifocal inflitrates worsen than previous. ASSESSMENT 1. Pneumonia possible gram positive possible gram negative 2. Fluid overload 3. CKD/ESRD 4. Metabolic acidosis despite diuretics at home 5. Elevated troponins r/o ACS 6. CHF r/o exacerbation 7. Anemia of chronic disease 8. Hypokalemia in CKD 9. Elevtaed BUN 10. Chronic leg ulcer wound 11. H/o BPH and had urology seen him in past for march catheter placement. PLAN Continue inpatient medical services with higher level of care, [facility] consult. F/U ABG and see if he is compliant with bipap, in case his mental status worsens he will need intubation. Serial cardaic enzymes, ECHO recenty with preserved EF. Send proBNP. Vancomycin and ceftazdime, obtain blood cultures x 2. sputum culture. LA repeat in case he worsens. Will cautiously hydrate. Nephrology (diuretics use and if dialysis needed) and cardiology consult (r/o ACS, a/c). Replete lytes as necessary. Monitor cbc, bmp. Repeat chest xray in AM. DM RISS and titrate insulin as needed. GI/dvt prophyalxis full code. Call me if any changes.
[2017-11-09] MEDS ORDERED: XOLIDO118 ML TOP (16:15)
--- NOTE | 2017-11-09 17:06 | Sepsis Event Note ---
Sepsis Event Note Severe Sepsis Severe Sepsis Present: No Septic Shock Septic Shock Present: No Event Note Event Note: Patient meets sepsis criteria with leukocytosis, fever, and infiltrate on chest x-ray. Blood pressure, heart rate and lactic acid wnl Broad spectrum antibiotics administered Vanc/Ceftriaxone Blood cultures performed, urine and sputum ordered No aggressive crystalloid resuscitation ordered due to anasarca and CKD. Will order crystalloid resuscitation if clinical condition worsens. Ceftazidime added for pseudomonal coverage with recent hospitalization. Sepsis Focused Exam Sepsis Cardiac Exam: Regular Rate/Rhythm Sepsis Resp Exam: [place] Sepsis Cap Refill Exam: <2 Sec Sepsis Peripheral Pulse Exam: Normal Sepsis Peripheral Pulse Location: Radial Sepsis Skin Exam (color): Normal for Ethnicity Skin Temp/Moisture Exam: Warm/Dry
[2017-11-09 17:30] VITALS: BP 140/60
[2017-11-09] MEDS ORDERED: HUMALOG100 UNIT/2 SC (18:23)
--- NOTE | 2017-11-09 23:06 | Event Note ---
Event Note Event Note: Situation Troponin rise from 0.27 to 0.82 Background / Assessment 62 year old man with multiple medical problems significant for CKD and significant cardiovascular risk factors including male gender, former smoker, morbid obesity, IDDM, dyslipidemia and hypertension admitted for hypoxic respiratory failure secondary to multilobar pneumonia and sepsis. Given patients acute illness in the context of renal insuffiency his mild troponin elevation is likely due to his his pneumonia / sepsis with poor renal clearance. Patient does have a moderate/high pretest probability for cornary disease but does not have chest pain, significant EKG changes. It is unlikely he is suffering for an acute coronary syndrome. Case was discussed with orthopaedic surgeon Dr. Valles whom agreed with this assessment. Recommendations -Continue aspirin, statin; restart beta joey -No Heparin at this time -Treat sepsis / pneumonia -Trend troponin / EKG until peak -Monitor / Replete electrolytes -Cardiology evaluation in morning -Nephrology evaluation in morning
[2017-11-10] VITALS: BP 150/70
[2017-11-10 05:39] LABS: ABSOLUTE BASOPHIL COUNT 0 /CUMM (0.0-0.2); ABSOLUTE EOSINOPHIL COUNT 0 /CUMM (0.0-0.7); ABSOLUTE GRANULOCYTE CT 8.2 /CUMM (1.4-6.5); ABSOLUTE LYMPH COUNT 0.6 /CUMM (1.2-3.4); ABSOLUTE MONOCYTE COUNT 0.7 /CUMM (0.10-0.60); BASOPHIL % 0.1 % (0.0-2.0); EOSINOPHIL % 0 % (0-5); GRANULOCYTE % 86.4 % (42.2-75.2); HEMATOCRIT 30.2 % (42-52); MEAN CORPUSCULAR HGB 29.6 PG (27.0-31.0); MEAN CORPUSCULAR HGB CONC 32.7 G/DL (33.0-37.0); MEAN CORPUSCULAR VOLUME 90.6 FL (80.0-94.0); MEAN PLATELET VOLUME 9.6 FL (7.4-10.4); PLATELET COUNT 184 /CUMM (130-400); RBC DISTRIBUTION WIDTH 15.4 % (11.5-14.5); RED BLOOD CELL CT 3.33 /CUMM (4.70-6.10)
[2017-11-10 06:17] LABS: WHITE BLOOD CELL COUNT 9.5 /CUMM (4.8-10.8)
[2017-11-10 08:00] VITALS: BP 146/74
--- NOTE | 2017-11-10 08:34 | RADIOLOGY REPORT ---
EXAMINATION: XR PORTABLE CHEST CLINICAL INFORMATION: Hypoxemia and fever. COMPARISON: None TECHNIQUE: Portable frontal view of the chest was obtained. FINDINGS: The portable exam is suboptimal. Hypoexpanded lungs with diffuse parenchymal haziness throughout the right lung likely secondary to interstitial pneumonitis or asymmetric interstitial edema. Some consolidation is suspected in the right lower lobe. Relatively the left lung is expanded with some patchy opacity left lung base. The left upper lung is clear. There are median sternotomy sutures and mediastinal moni from previous intervention. No gross bony abnormality seen. IMPRESSION: Diffuse haziness throughout the right lung likely interstitial pneumonitis or asymmetric edema. Some parenchymal consolidation seen in the right lower lobe and haziness in the left lung base. Overall these findings are stable.
--- NOTE | 2017-11-10 10:05 | PN- Resident CRCU ---
Lamine Curry 11/10/17 1005: Subjective HPI/CRCU Issues: #Sepsis 2/2 Multilobar PNA #Acute Hypoxemic Resp Failure #Elevated troponin, downward trend #CKD #H/o DM #H/o HTN 24 Hour Events: Pt seen and examined this am. He was talkative, on BiPAP 16, 60% O2, with sats > 92%. His BP has been on the high side though, his HTN medication had been held - hydralazine restarted. There was no other acute complain. Objective Vital Signs & I&O Last 8 Hrs of Vitals and I&O: Laboratory Tests 11/10/17 0430: Anion Gap 21 H, Estimated GFR 9 L, Glucose 103 H, Calcium 8.2 L, Phosphorus 8.8 H, Magnesium 1.7, Total Bilirubin 0.6, AST 42, ALT 23, Troponin I 0.59 *H, Albumin 2.8 L, CBC w Diff NO MAN DIFF REQ, RBC 3.33 L, MCV 90.6, MCH 29.6, MCHC 32.7 L, RDW 15.4 H, MPV 9.6, Gran % 86.4 H, Lymphocytes % 6.2 L, Monocytes % 7.3, Eosinophils % 0, Basophils % 0.1, Absolute Granulocytes 8.2 H, Absolute Lymphocytes 0.6 L, Absolute Monocytes 0.7 H, Absolute Eosinophils 0, Absolute Basophils 0, Random Vancomycin 6.8 11/10/17 0100: Urine Opiates Screen < 100, Methadone Screen 56, Barbiturate Screen < 60, Ur Phencyclidine Scrn < 6.00, Amphetamines Screen < 100, U Benzodiazepines Scrn < 85, Urine Cocaine Screen < 50, Urine Cannabis Screen < 5.00, Urine Color YEL, Urine Clarity HAZY H, Urine pH 6.0, Ur Specific Hardesty 1.025, Urine Protein >= 300 H, Urine Ketones NEG, Urine Nitrite NEG, Urine Bilirubin NEG, Urine Urobilinogen 0.2, Ur Leukocyte Esterase SMALL H, Ur Microscopic SEDIMENT EXAMINED, Urine RBC 1-3, Urine WBC > 75 H, Ur Epithelial Cells RARE, Urine Bacteria FEW H, Urine Hemoglobin MOD H, Urine Glucose 100 H 11/09/171999: Anion Gap 16, Estimated GFR 8 L, Glucose 108 H, Calcium 7.9 L, Phosphorus 8.2 H, Magnesium 1.6, Total Bilirubin 0.4, AST 31, ALT 24, Troponin I 0.82 *H, Albumin 2.6 L 11/09/17 1845: pH 7.40, pCO2 31 L, pO2 108 H, HCO3 18 L, ABG O2 Sat (Measured) 97.0, P-50 ( Temp Corrected) N, Carboxyhemoglobin 0.2 L, O2 Concentration % 50, Temperature 98.3, Respiration Rate 18, O2 Delivery Method BIPAP, Vent Mode ST, Expiratory Pressure 6, Inspiratory Pressure 16, Phlebotomy Draw Site LEFT RADIAL 11/09/17 1728: Lactic Acid Cancelled 11/09/17 1430: Anion Gap 18 H, Estimated GFR 9 L, BUN/Creatinine Ratio 14.2, Glucose 106 H, Hemoglobin A1c Pending, Lactic Acid 1.1, Calcium 8.2 L, Phosphorus 7.9 H, Magnesium 1.6, Total Bilirubin 0.6, AST 28, ALT 22, Alkaline Phosphatase 67, Troponin I 0.27 *H, Leu-W-Wcphnxqyjcj Pept 25196 H, Total Protein 6.0 L, Albumin 2.9 L, Globulin 3.1, Albumin/Globulin Ratio 0.9 L, CBC w Diff NO MAN DIFF REQ, RBC 3.23 L, MCV 90.5, MCH 29.5, MCHC 32.7 L, RDW 15.8 H, MPV 9.2, Gran % 90.4 H, Lymphocytes % 3.0 L, Monocytes % 6.6, Eosinophils % 0, Basophils % 0, Absolute Granulocytes 11.3 H, Absolute Lymphocytes 0.4 L, Absolute Monocytes 0.8 H, Absolute Eosinophils 0, Absolute Basophils 0 Microbiology 11/10 99 URINE ROUT: Legionella Antigen - RES 11/10 99 URINE ROUT: Streptococcus pneumoniae Antigen (M - RES 11/10 99 URINE ROUT: Urine Culture - RES 11/09 1929 STOOL: Clostridium difficile Toxin A & B - RES 11/09 1929 STOOL: Stool Culture - RES 11/09 173 UPPER RESP: Surveillance Culture - RECD 11/09 173 GI: Surveillance Culture - RECD 11/09 165 LOWER RESP: Respiratory Culture - CAN Cancelled: NO SAMPLE COLLECTED FOR MICRO DEPT 11/09 165 LOWER RESP: Gram Stain - CAN Cancelled: NO SAMPLE COLLECTED FOR MICRO DEPT 11/09 1440 BLOOD: Blood Culture - RES GRAM NEGATIVE RODS 11/09 1430 BLOOD: Blood Culture - RES GRAM NEGATIVE RODS Intake & Output 11/10 1600 11/10 0800 11/10 0000 Intake Total 540 1100 730 Output Total 450 675 50 Balance 90 425 680 Intake, IV 150 900 530 Intake, Oral 390 200 200 Number 4 1 4 Bowel Movements Output, Stool 50 Output, Urine 450 675 0 Patient 290 lb 285 lb Weight Weight Bed scale Bed scale Measurement Method Laboratory Tests 11/10 11/10 0430 0100 Chemistry Sodium (137 - 145 mmol/L) 145 Potassium (3.5 - 5.1 mmol/L) 4.0 Chloride (98 - 107 mmol/L) 106 Carbon Dioxide (22 - 30 mmol/L) 18 L Anion Gap (5 - 16) 21 H BUN (9 - 20 mg/dL) 98 H Creatinine (0.7 - 1.2 mg/dL) 6.6 *H Estimated GFR (>60 ml/min) 9 L Glucose (65 - 99 mg/dL) 103 H Calcium (8.4 - 10.2 mg/dL) 8.2 L Phosphorus (2.5 - 4.5 mg/dL) 8.8 H Magnesium (1.6 - 2.3 mg/dL) 1.7 Total Bilirubin (0.2 - 1.3 mg/dL) 0.6 AST (17 - 59 U/L) 42 ALT (21 - 72 U/L) 23 Troponin I (<0.11 ng/ml) 0.59 *H Albumin (3.5 - 5.0 g/dL) 2.8 L Hematology CBC w Diff NO MAN DIFF REQ WBC (4.8 - 10.8 /CUMM) 9.5 RBC (4.70 - 6.10 /CUMM) 3.33 L Hgb (14.0 - 18.0 G/DL) 9.9 L Hct (42 - 52 %) 30.2 L MCV (80.0 - 94.0 FL) 90.6 MCH (27.0 - 31.0 PG) 29.6 MCHC (33.0 - 37.0 G/DL) 32.7 L RDW (11.5 - 14.5 %) 15.4 H Plt Count (130 - 400 /CUMM) 184 MPV (7.4 - 10.4 FL) 9.6 Gran % (42.2 - 75.2 %) 86.4 H Lymphocytes % (20.5 - 51.1 %) 6.2 L Monocytes % (1.7 - 9.3 %) 7.3 Eosinophils % (0 - 5 %) 0 Basophils % (0.0 - 2.0 %) 0.1 Absolute Granulocytes (1.4 - 6.5 /CUMM) 8.2 H Absolute Lymphocytes (1.2 - 3.4 /CUMM) 0.6 L Absolute Monocytes (0.10 - 0.60 /CUMM) 0.7 H Absolute Eosinophils (0.0 - 0.7 /CUMM) 0 Absolute Basophils (0.0 - 0.2 /CUMM) 0 Toxicology Random Vancomycin (ug/ml) 6.8 Urine Opiates Screen (>2000 NG/ML) < 100 Methadone Screen (>300 NG/ML) 56 Barbiturate Screen (>200 NG/ML) < 60 Ur Phencyclidine Scrn (>25 NG/ML) < 6.00 Amphetamines Screen (>1000 NG/ML) < 100 U Benzodiazepines Scrn (>200 NG/ML) < 85 Urine Cocaine Screen (>300 NG/ML) < 50 Urine Cannabis Screen (>50 NG/ML) < 5.00 Urines Urine Color (YEL,AMB,STR) YEL Urine Clarity (CLEAR) HAZY H Urine pH (5.0 - 8.0) 6.0 Ur Specific Hardesty (1.001 - 1.035) 1.025 Urine Protein (NEG,<30 MG/DL) >=300 H Urine Ketones (NEG) NEG Urine Nitrite (NEG) NEG Urine Bilirubin (NEG) NEG Urine Urobilinogen (0.1 - 1.0 EU/dl) 0.2 Ur Leukocyte Esterase (NEG) SMALL H Ur Microscopic SEDIMENT EXAMINED Urine RBC (0 - 5 /HPF) 1-3 Urine WBC (0 - 2 /HPF) > 75 H Ur Epithelial Cells (NONE,FEW) RARE Urine Bacteria (NEG/NONE) FEW H Urine Hemoglobin (NEG) MOD H Urine Glucose (N MG/DL) 100 H 11/09 1294 172 Blood Gas pH (7.35 - 7.45 PH) 7.40 pCO2 (35 - 45 TORR) 31 L pO2 (80 - 100 TORR) 108 H HCO3 (21 - 28 MEQ/L) 18 L ABG O2 Sat (Measured) (>96.0 %) 97.0 P-50 (Temp Corrected) N Carboxyhemoglobin (1.5 - 5.0 %) 0.2 L O2 Concentration % 50 Temperature (97.0 - 100.0 FARH) 98.3 Respiration Rate (BPM) 18 O2 Delivery Method BIPAP Vent Mode ST Expiratory Pressure (CM H2O P) 6 Inspiratory Pressure (CM H2O P) 16 Chemistry Sodium (137 - 145 mmol/L) 141 Potassium (3.5 - 5.1 mmol/L) 2.9 *L Chloride (98 - 107 mmol/L) 104 Carbon Dioxide (22 - 30 mmol/L) 21 L Anion Gap (5 - 16) 16 BUN (9 - 20 mg/dL) 92 H Creatinine (0.7 - 1.2 mg/dL) 6.9 *H Estimated GFR (>60 ml/min) 8 L Glucose (65 - 99 mg/dL) 108 H Lactic Acid Cancelled Calcium (8.4 - 10.2 mg/dL) 7.9 L Phosphorus (2.5 - 4.5 mg/dL) 8.2 H Magnesium (1.6 - 2.3 mg/dL) 1.6 Total Bilirubin (0.2 - 1.3 mg/dL) 0.4 AST (17 - 59 U/L) 31 ALT (21 - 72 U/L) 24 Troponin I (<0.11 ng/ml) 0.82 *H Albumin (3.5 - 5.0 g/dL) 2.6 L Miscellaneous Phlebotomy Draw Site LEFT RADIAL Intake & Output 11/10 1600 Intake Total 540 Output Total 450 Balance 90 Intake, IV 150 Intake, Oral 390 Number 4 Bowel Movements Output, Urine 450 Patient 290 lb Weight Weight Bed scale Measurement Method Exam General Appearance: no apparent distress, alert, awake, obese Head: atraumatic, normal appearance Respiratory: chest non-tender, Pt on BiPAP, though not visibly dyspneic. Scattered rhonchi throughout both pulmonary rodriguez. No chest tenderness on palpation. Cardiovascular: regular rate/rhythm, No M/R/G Gastrointestinal: normal bowel sounds, soft, no organomegaly, Mild tenderness on deep palpation diffusely across all abdominal quadrants. Extremities: Normal inspection of R foot, no edema noted. Dressing covering clean base heel ulcer on the R, clean, dry and intact. Cranial Nerves: normal hearing, normal speech Current Medications: Current Medications Sig/Jose Angel Start time Last Medication Dose Route Stop Time Status Admin Acetaminophen 1,000 MG .STK-MED ONE 11/10 0332 DC IV 11/10 0333 Acetaminophen 1,000 MG Q6P PRN 11/09 1800 AC 11/10 N/A 1 UNIT IV 0900 Acetaminophen 650 MG Q6P PRN 11/09 1645 AC PO Aspirin 81 MG DAILY 11/10 0900 AC 11/10 PO 0900 Aspirin 325 MG ONCE ONE 11/09 1700 DC 11/09 PO 11/09 1701 1857 Atorvastatin Calcium 40 MG DAILY@1700 11/10 1700 AC PO Atorvastatin Calcium 40 MG DAILY 11/10 0900 DC PO Azithromycin 500 MG ONCE ONE 11/09 1845 DC 11/09 Sodium Chloride 250 ML IV 11/09 1944 2011 Ceftazidime 1,000 MG DAILY@1400 11/10 1400 AC IV Ceftazidime 1,000 MG ONCE ONE 11/09 1700 DC 11/09 IV 11/09 1701 1857 Furosemide 20 MG ONCE ONE 11/10 1215 DC 11/10 IV 11/10 1216 1251 Furosemide 60 MG ONCE ONE 11/10 1130 DC 11/10 IV 11/10 1131 1147 Heparin Sodium 5,000 UNIT Q8 11/09 2200 AC 11/10 (Porcine) SC 1359 Hydralazine HCl 50 MG TID 11/10 1400 AC 11/10 PO 1358 Insulin Aspart 0 TIDAC 11/10 1200 AC 11/10 SC 1208 Insulin Detemir 16 UNITS BID 11/10 2100 AC SC Insulin Human Regular 0 Q6 11/09 1800 DC SC Lidocaine 1 PAT Q24H 11/09 1645 AC 11/09 EXT 1857 Magnesium Oxide 400 MG BID 11/09 2256 AC 11/10 PO 0900 Metoprolol Tartrate 75 MG BID 11/10 0900 AC 11/10 PO 0635 Potassium Chloride 40 MEQ Q1 11/09 2300 DC 11/10 PO 11/10 0001 0136 Potassium Chloride 40 MEQ .Q10H 11/09 1645 DC 11/09 Sodium Chloride 1,000 ML IV 11/10 0244 2010 Potassium Chloride 10 MEQ ONCE ONE 11/09 1530 DC 11/09 IV 11/09 1531 1535 Sevelamer Carbonate 1,600 MG TIDAC 11/10 1700 AC 11/10 PO 1211 Sevelamer Carbonate 1,600 MG TID 11/09 2100 DC 11/10 PO 0900 Sodium Bicarbonate 1,950 MG TID 11/09 2100 AC 11/10 PO 1358 Sodium Hypochlorite 1 MEI BID 11/09 2100 AC 11/10 TOP 0900 Vancomycin HCl 1,000 MG ONCE ONE 11/09 1445 DC 11/09 Sodium Chloride 250 ML IV 11/09 1544 1508 CXR Findings: SERVICE DATE: 11/10/17 EXAM TYPE: RAD - XRY-PORTABLE CHEST XRAY EXAMINATION: XR PORTABLE CHEST CLINICAL INFORMATION: Hypoxemia and fever. COMPARISON: None TECHNIQUE: Portable frontal view of the chest was obtained. FINDINGS: The portable exam is suboptimal. Hypoexpanded lungs with diffuse parenchymal haziness throughout the right lung likely secondary to interstitial pneumonitis or asymmetric interstitial edema. Some consolidation is suspected in the right lower lobe. Relatively the left lung is expanded with some patchy opacity left lung base. The left upper lung is clear. There are median sternotomy sutures and mediastinal moni from previous intervention. No gross bony abnormality seen. IMPRESSION: Diffuse haziness throughout the right lung likely interstitial pneumonitis or asymmetric edema. Some parenchymal consolidation seen in the right lower lobe and haziness in the left lung base. Overall these findings are stable. Impression/Plan Impression/Problem List Impression: Mr. Urban is a 62 year old M with PMH significant for IDDM, HFpEF, CKD stage IV/V on aranesp, procrit, and sevalamer, 2/2 diabetic and obstructive nephropathy, h/o urethral strictures requiring intermittent straight cath, CAD s /p CABG (2005), HTN, and KALE on CPAP that presented to the ED with fever and respiratory distress. ABG showed evidence of acute hypoxemic respiratory failure requiring NIPPV; he was admitted to the ICU for management of sepsis likely from multilobar pna-in the context of elevated troponins and creatinine. IMPRESSION #Sepsis 2/2 Multilobar PNA #Acute Hypoxemic Resp Failure #Elevated troponin, downward trend #CKD #H/o DM #H/o HTN #Sepsis 2/2 Multilobar PNA Pt's gram stain on blood cultures showed GNR, he received ceftazidime and vancomycin. Antibiotics must be dosed to his renal function; ceftazidime 1g qD started, vancomycin dosage to be decided after vanc random level; if >15, it should be held. Otherwise another dose will be given. He does have a recent prior hospitalization, HAP is a possibility. Will continue to monitor for growth , species and sensitivity studies on the cultures. Urinary ag for Strep pneumo and Legionella were negative. AM labs noted for decreased WBC count. He remains afebrile. -Ceftazidime 1g qD -Vanc to be dosed daily depending on random vanc level. 1.5g given 11/10 -F/u species and sensitivity studies on cultures -Neg Urinary Ag for Legionella and Strep Pneumo #Acute Hypoxemic Resp Failure On presentation, he was tachypneic with increased work of breathing and evidence of hypoxemia was present. He is on BiPAP /, FiO2 60%. -Continue Nebulized albuterol, -pulmonary toilet -chest physiotherapy #Elevated troponin, downward trend Pt with a downward trend, 0.82->0.59. Likely to be a supply-demand issue in the setting of sepsis; EKG showing no acute findings. Will continue to monitor for any acute telemetry events. -Replete electrolytes as needed -On metoprolol, restarted hydralazine TID -Trend electrolytes #CKD Pt's with stage IV/V CKD, BUN 98 and creatinine 6.6 on latest am lab, prior CT showing atropic kidneys. Nephrology was consulted. He responds to high dose lasix; currently on 80 mg IV BID. Urology consult to be requested for march placement (last admission needed cystoscopy for placement). He is on phosphate binders with meals. -Trend BEP -IV lasix 80 mg BID -Continue sevelamer #H/o DM Blas is now on consistent carbohydrate 2 with 2g sodium restriction. Continue insulin regimen and adjust as needed. -Bedside glucose monitoring q6 -Novolog ISS, adjust as needed #H/o HTN BP has been around 150-170 since admission. He is currently on metoprolol; home dose hydralazine PO 50 Mg TID restarted. -Continue metoprolol -Hydralazine 50 mg TID FULL CODE Consistent Carbohydrate 2, 2g Na restricted DVT PPX: Hep subQ Problem List: 1. Pneumonia 2. Diabetes Pain Ratin Pain Location: diffusely in abdomen Tomorrow's Labs & Rationales: cbc icu lab bundle Plan DVT/Prophylaxis: mechanical, pharmacological Rebecca Geiger 11/10/17 1252: Attending MD Review Statement Attending Sign Off Attending Cosign Statement: I have: examined this patient, reviewed aval EMR data, personally reviewd images, discussd w/resident/PA/DIE BAKER, discussed mgmt plan w/shailesh. Other Findings: Patient wth pmh of CAD/bypass, EF 60%, CHF, DM, CKD/ESRD with fluid overlaod responding to high dose diuretics opted for peritoenal dialysis in past came with sudden onset shortness of breath with fever 102.9 with cough and fluid overlaod admitted for pneumonia and fluid overlaod improving with NIPPV support and is compliant with bipap. Overnight afebrile on oxygen supplementation high flow oxygen: Ph 7.40 Po2 100 on high flow Labs with improvement in leukocytosis. Prelim cultures growing gram negative. ASSESSMENT 1. Pneumonia possible gram positive possible gram negative 2. Fluid overload 3. CKD/ESRD 4. Metabolic acidosis despite diuretics at home 5. Elevated troponins likely type 2 CA 6. CHF 7. Anemia of chronic disease 8. Hypokalemia in CKD with improvement 9. Elevtaed BUN 10. Chronic leg ulcer wound 11. H/o BPH and had urology seen him in past for march catheter placement. PLAN Admit to inpatient medical services with higher level of care, CRCU consult. ECHO recenty with preserved EF. Cardiology consulted Empiric broad spectrum abx, f/u blood cultures x 2. sputum culture. Nephrology recommend diuretics use 80-100 mg iv lasix bid and cardiology appreciated. Replete lytes as necessary. Monitor cbc, bmp. DM RISS and titrate insulin as needed. Urology eval for march catheter placement. (had to go OR last admission under cystoscopy) GI/dvt prophyalxis full code.
--- NOTE | 2017-11-10 10:30 | Cons- Cardiology ---
Deondre Rubin 11/10/17 1018: General Information and HPI Consulting Request Date of Consult: 11/10/17 Requested By: Rebecca Geiger MD Primary behavior support specialist: [place] Reason for Consult: Elevated Troponin Source of Information: patient Exam Limitations: no limitations History of Present Illness: This is a 62-year-old male with past medical history significant for heart failure with preserved EF, (EF 64% by echo September 2017) chronic kidney disease stage IV, coronary artery disease, CABG in 2005 diabetes hypertension and obstructive sleep apnea on CPAP who presented to [facility] yesterday secondary to worsening shortness of breath, fever and productive cough found to have multilobar pneumonia sepsis, elevated troponin and hypoxic respiratory failure. Patient is now on BiPAP. It is of note in the ED the patient had a chest x-ray showing signs of multi-lobar pneumonia. Initial troponin was elevated at 0.27. EKG showed sinus rhythm with diffuse lateral T-wave changes which are unchanged from his previous EKG. Troponin trended to 0.82 and has subsequently trended down to 0.59. He denies recent chest pain palpitations dizziness lightheadedness. The patient reports that he fell yesterday when he rolled out of bed. He denies any prodromal dizziness lightheadedness prior to the episode. He states he has been compliant with all of his home medications. Currently the patient is on BiPAP, he offers no complaints he denies chest pain shortness of breath palpitations orthopnea, PND. Patient's history is notable in that he was recently discharged 1 month ago from this hospital secondary to acute CHF exacerbation Allergies/Medications Allergies: Coded Allergies: baclofen (LOSE EYESIGHT AND MOTOR SKILLS PER PT 09/23/17) ciprofloxacin (From CIPRO) (FEVER PT PT 09/23/17) lisinopril (COUGH PER PT 09/23/17) Home Med List: Acetaminophen (Tylenol Extra Strength) 500 MG TABLET 1 TAB PO Q6 PRN KNEE PAIN (Reported) Amlodipine Besylate 10 MG TABLET 1 TAB PO DAILY HTN (Reported) Ammonium Lactate 12 % CREAM..G. 1 MEI TOP DAILY FEET (Reported) Atorvastatin Calcium 40 MG TABLET 1 TAB PO DAILY CHOL (Reported) Calcium Acetate 667 MG CAPSULE 1 CAP PO TID VITAMIN (Reported) Epoetin Chu (Procrit) 20,000 UNIT/ML VIAL 15,000 U SC ONCE A WEEK anemia Please coordinate with agricultural systems specialist regarding your weekly dosing. Fenofibrate Nanocrystallized (Fenofibrate) 145 MG TABLET 1 TAB PO DAILY URINE (Reported) Furosemide (Lasix) 40 MG TABLET 120 MG PO DAILY KIDNEY DISEASE Hydralazine HCl 50 MG TABLET 1 TAB PO TID BP (Reported) Insulin Aspart (Novolog) 100 UNIT/ML VIAL 0 UNITS SC TIDAC diabetes BEFORE MEALS Blood Insulin Sugar Units <80 0 81-100 0 101-200 1 201-250 2 251-300 3 301-350 4 351-400 6 >400 Call Doctor Insulin Lispro (Humalog) 100 UNIT/ML VIAL 1 UNIT SC TID DM (Reported) USE DIRECTED Lidocaine 5 % ADH..PATCH 3 PAT TOP DAILY PAIN (Reported) Lidocaine HCl (Xolido) 2 % CREAM.ML. 1 MEI TOP AD TOPICAL ANESTHETIC ( Reported) Metaxalone 800 MG TABLET 1 TAB PO TID PRN MUSCLE SPASMS (Reported) Metolazone 5 MG TABLET 1 TAB PO TUESTHURS BP (Reported) Metoprolol Tartrate (Lopressor) 50 MG TABLET 75 MG PO BID BP (Reported) Patiromer Calcium Sorbitex (Veltassa) 16.8 GRAM POWD.PACK 1 PKG PO DAILY UNK (Reported) Sevelamer Carbonate (Renvela) 800 MG TABLET 2 TAB PO TID KIDNEY (Reported) Sodium Bicarbonate 325 MG TABLET 1,950 MG PO TID KIDNEY DISEASE Trazodone HCl 50 MG TABLET 1 TAB PO QHS PRN SLEEP (Reported) Review of Systems Review of Systems: Review of systems: See HPI, All other systems negative. Constitutional, no chills positive fever, no malaise no weight loss HEENT: no sore throat no congestion, no ear pain Cardiovascular: No chest pain , no palpitation Skin: no rashes, no change in skin Respiratory: Positive dyspnea no cough no sputum no hemoptysis GI: No nausea no vomiting, no diarrhea : No dysuria Muscle skeletal: No joint pain, no back pain, no neck pain, Neurologic: no headache Psych: No stress Heme/endocrine: No bruising no bleeding Immunology: No lymphadenopathy Past History Travel History Traveled to [place] past 21 day No Medical History Neurological: peripheral neuropathy EENT: NONE Cardiovascular: hypertension, CABG Respiratory: NONE Gastrointestinal: GASTRIC BYPASS 2017 Hepatic: NONE Renal: KIDNEY DISEASE STAGE 4 Musculoskeletal: osteoarthritis, leg injury r/t accident Psychiatric: substance abuse, (history 30+ years) Endocrine: diabetes Blood Disorders: DVT Cancer(s): NONE 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 self Services at Home: Home Health Aide, Nursing Primary Language: Turkmen Smoking Status: Former Smoker ETOH Use: denies use Illicit Drug Use: denies illicit drug use Functional Ability ADLs Independent: dressing, eating. Needs Assist: toileting, bathing. Ambulation: walker IADLs Independent: food prep. Needs Assist: shopping, housework, medication admin. 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 Exam & Diagnostic Data Vital Signs and I&O Vital Signs Date Time Temp Pulse Resp B/P B/P Pulse O2 O2 Flow FiO2 Mean Ox Delivery Rate 11/10 0900 99.6 11/10 0800 98.6 58 31 146/74 90 Nasal 80% Cannula 11/10 0557 67 92 11/10 0400 91 BIPAP 60% 11/10 0334 98.9 11/10 0255 67 93 11/10 0234 65 92 11/10 0051 59 95 11/10 0000 97.6 59 24 150/70 93 BIPAP 40% 11/10 0000 93 BIPAP 40% 11/09 2220 58 96 11/09 2000 90 Nasal 5.0L Cannula 11/09 1955 Nasal 45% Cannula 11/09 1821 99 BIPAP 50% 11/09 1730 98.3 66 22 140/60 99 BIPAP 50% 11/09 1722 97 96 11/09 1600 99.3 67 24 141/66 94 BIPAP 60% 11/09 1538 67 97 11/09 1441 102.6 88 20 145/84 88 Non 100% ReBreather 11/09 1435 88 Non 100% ReBreather Intake & Output 11/10 0811/10 0000 11/09 1600 11/09 0000 Intake Total 1100 730 0 Output Total 675 50 Balance 425 680 0 Intake, IV 900 530 Intake, Oral 200 200 0 Number 1 4 Bowel Movements Output, Stool 50 Output, Urine 675 0 Patient 290 lb 285 lb Weight Weight Bed scale Bed scale Measurement Method Physical Exam: Well-developed well-nourished person in no acute distress HEENT: HEAD is atraumatic Neck: Supple, normal range of motion Back: Nontender, no CVA tenderness. Full range of motion Cardiovascular: Regular rate and rhythms no murmurs rubs or gallops, normal JVP Respiratory: No respiratory distress. Patient speaking in full complete sentences. Diminished breath sounds b/l no crackles wheezing noted Abdomen: Soft, nontender nondistended Extremity: 2+ b/l le edema, full range of motion of extremities Neuro: Alert oriented x3 Skin: No appreciable rash on exposed skin, skin is warm and dry. Psych: Mood and affect is normal, memory and judgment is normal. Labs/[place] Results: Laboratory Tests 11/10 11/10 0430 0100 Chemistry Sodium (137 - 145 mmol/L) 145 Potassium (3.5 - 5.1 mmol/L) 4.0 Chloride (98 - 107 mmol/L) 106 Carbon Dioxide (22 - 30 mmol/L) 18 L Anion Gap (5 - 16) 21 H BUN (9 - 20 mg/dL) 98 H Creatinine (0.7 - 1.2 mg/dL) 6.6 *H Estimated GFR (>60 ml/min) 9 L Glucose (65 - 99 mg/dL) 103 H Calcium (8.4 - 10.2 mg/dL) 8.2 L Phosphorus (2.5 - 4.5 mg/dL) 8.8 H Magnesium (1.6 - 2.3 mg/dL) 1.7 Total Bilirubin (0.2 - 1.3 mg/dL) 0.6 AST (17 - 59 U/L) 42 ALT (21 - 72 U/L) 23 Troponin I (<0.11 ng/ml) 0.59 *H Albumin (3.5 - 5.0 g/dL) 2.8 L Hematology CBC w Diff NO MAN DIFF REQ WBC (4.8 - 10.8 /CUMM) 9.5 RBC (4.70 - 6.10 /CUMM) 3.33 L Hgb (14.0 - 18.0 G/DL) 9.9 L Hct (42 - 52 %) 30.2 L MCV (80.0 - 94.0 FL) 90.6 MCH (27.0 - 31.0 PG) 29.6 MCHC (33.0 - 37.0 G/DL) 32.7 L RDW (11.5 - 14.5 %) 15.4 H Plt Count (130 - 400 /CUMM) 184 MPV (7.4 - 10.4 FL) 9.6 Gran % (42.2 - 75.2 %) 86.4 H Lymphocytes % (20.5 - 51.1 %) 6.2 L Monocytes % (1.7 - 9.3 %) 7.3 Eosinophils % (0 - 5 %) 0 Basophils % (0.0 - 2.0 %) 0.1 Absolute Granulocytes (1.4 - 6.5 /CUMM) 8.2 H Absolute Lymphocytes (1.2 - 3.4 /CUMM) 0.6 L Absolute Monocytes (0.10 - 0.60 /CUMM) 0.7 H Absolute Eosinophils (0.0 - 0.7 /CUMM) 0 Absolute Basophils (0.0 - 0.2 /CUMM) 0 Toxicology Urine Opiates Screen (>2000 NG/ML) < 100 Methadone Screen (>300 NG/ML) 56 Barbiturate Screen (>200 NG/ML) < 60 Ur Phencyclidine Scrn (>25 NG/ML) < 6.00 Amphetamines Screen (>1000 NG/ML) < 100 U Benzodiazepines Scrn (>200 NG/ML) < 85 Urine Cocaine Screen (>300 NG/ML) < 50 Urine Cannabis Screen (>50 NG/ML) < 5.00 Urines Urine Color (YEL,AMB,STR) YEL Urine Clarity (CLEAR) HAZY H Urine pH (5.0 - 8.0) 6.0 Ur Specific [place] (1.001 - 1.035) 1.025 Urine Protein (NEG,<30 MG/DL) >=300 H Urine Ketones (NEG) NEG Urine Nitrite (NEG) NEG Urine Bilirubin (NEG) NEG Urine Urobilinogen (0.1 - 1.0 EU/dl) 0.2 Ur Leukocyte Esterase (NEG) SMALL H Ur Microscopic SEDIMENT EXAMINED Urine RBC (0 - 5 /HPF) 1-3 Urine WBC (0 - 2 /HPF) > 75 H Ur Epithelial Cells (NONE,FEW) RARE Urine Bacteria (NEG/NONE) FEW H Urine Hemoglobin (NEG) MOD H Urine Glucose (N MG/DL) 100 H 11/09 6274 3095 Blood Gas pH (7.35 - 7.45 PH) 7.40 pCO2 (35 - 45 TORR) 31 L pO2 (80 - 100 TORR) 108 H HCO3 (21 - 28 MEQ/L) 18 L ABG O2 Sat (Measured) (>96.0 %) 97.0 P-50 (Temp Corrected) N Carboxyhemoglobin (1.5 - 5.0 %) 0.2 L O2 Concentration % 50 Temperature (97.0 - 100.0 FARH) 98.3 Respiration Rate (BPM) 18 O2 Delivery Method BIPAP Vent Mode ST Expiratory Pressure (CM H2O P) 6 Inspiratory Pressure (CM H2O P) 16 Chemistry Sodium (137 - 145 mmol/L) 141 Potassium (3.5 - 5.1 mmol/L) 2.9 *L Chloride (98 - 107 mmol/L) 104 Carbon Dioxide (22 - 30 mmol/L) 21 L Anion Gap (5 - 16) 16 BUN (9 - 20 mg/dL) 92 H Creatinine (0.7 - 1.2 mg/dL) 6.9 *H Estimated GFR (>60 ml/min) 8 L Glucose (65 - 99 mg/dL) 108 H Lactic Acid Cancelled Calcium (8.4 - 10.2 mg/dL) 7.9 L Phosphorus (2.5 - 4.5 mg/dL) 8.2 H Magnesium (1.6 - 2.3 mg/dL) 1.6 Total Bilirubin (0.2 - 1.3 mg/dL) 0.4 AST (17 - 59 U/L) 31 ALT (21 - 72 U/L) 24 Troponin I (<0.11 ng/ml) 0.82 *H Albumin (3.5 - 5.0 g/dL) 2.6 L Miscellaneous Phlebotomy Draw Site LEFT RADIAL 11/09 1430 Chemistry Sodium (137 - 145 mmol/L) 141 Potassium (3.5 - 5.1 mmol/L) 2.9 *L Chloride (98 - 107 mmol/L) 104 Carbon Dioxide (22 - 30 mmol/L) 19 L Anion Gap (5 - 16) 18 H BUN (9 - 20 mg/dL) 94 H Creatinine (0.7 - 1.2 mg/dL) 6.6 *H Estimated GFR (>60 ml/min) 9 L BUN/Creatinine Ratio (7 - 25 %) 14.2 Glucose (65 - 99 mg/dL) 106 H Hemoglobin A1c (4.2 - 5.8 %) Pending Lactic Acid (0.7 - 2.1 mmol/L) 1.1 Calcium (8.4 - 10.2 mg/dL) 8.2 L Phosphorus (2.5 - 4.5 mg/dL) 7.9 H Magnesium (1.6 - 2.3 mg/dL) 1.6 Total Bilirubin (0.2 - 1.3 mg/dL) 0.6 AST (17 - 59 U/L) 28 ALT (21 - 72 U/L) 22 Alkaline Phosphatase (< 127 U/L) 67 Troponin I (<0.11 ng/ml) 0.27 *H [id number] Pept (<125 pg/mL) 47897 H Total Protein (6.3 - 8.2 g/dL) 6.0 L Albumin (3.5 - 5.0 g/dL) 2.9 L Globulin (1.9 - 4.2 gm/dL) 3.1 Albumin/Globulin Ratio (1.1 - 2.2 %) 0.9 L Hematology CBC w Diff NO MAN DIFF REQ WBC (4.8 - 10.8 /CUMM) 12.5 H RBC (4.70 - 6.10 /CUMM) 3.23 L Hgb (14.0 - 18.0 G/DL) 9.5 L Hct (42 - 52 %) 29.2 L MCV (80.0 - 94.0 FL) 90.5 MCH (27.0 - 31.0 PG) 29.5 MCHC (33.0 - 37.0 G/DL) 32.7 L RDW (11.5 - 14.5 %) 15.8 H Plt Count (130 - 400 /CUMM) 199 MPV (7.4 - 10.4 FL) 9.2 Gran % (42.2 - 75.2 %) 90.4 H Lymphocytes % (20.5 - 51.1 %) 3.0 L Monocytes % (1.7 - 9.3 %) 6.6 Eosinophils % (0 - 5 %) 0 Basophils % (0.0 - 2.0 %) 0 Absolute Granulocytes (1.4 - 6.5 /CUMM) 11.3 H Absolute Lymphocytes (1.2 - 3.4 /CUMM) 0.4 L Absolute Monocytes (0.10 - 0.60 /CUMM) 0.8 H Absolute Eosinophils (0.0 - 0.7 /CUMM) 0 Absolute Basophils (0.0 - 0.2 /CUMM) 0 Diagnostic Data EKG Results EKG: Sinus 66, nonspecific T-wave abnormalities unchanged from previous personally reviewed by me Telemetry: Sinus 60s-80s personally reviewed by me CXR Results CXR: IMPRESSION: Diffuse haziness throughout the right lung likely interstitial pneumonitis or asymmetric edema. Some parenchymal consolidation seen in the right lower lobe and haziness in the left lung base. Overall these findings are stable. Other Results CONCLUSIONS Mild left ventricular dilatation. Mild concentric left ventricular hypertrophy. Normal left ventricular ejection fraction visually estimated at >60 Mild left atrial dilatation. Trace mitral regurgitation. Trace aortic regurgitation. Mild tricuspid regurgitation. Mild pulmonic regurgitation. Right ventricular systolic pressure estimated to be elevated at 52 mmHg. Assessment/Plan Assessment/Plan This is a 62-year-old male with past medical history significant for heart failure with preserved EF, (EF 64% by echo September 2017) chronic kidney disease stage IV, coronary artery disease, CABG in 2005 diabetes hypertension and obstructive sleep apnea on CPAP who presented to [facility] yesterday secondary to worsening shortness of breath, fever and productive cough found to have multilobar pneumonia sepsis, elevated troponin and hypoxic respiratory failure. Impression: Elevated troponin in setting of demand ischemia secondary to sepsis Sepsis secondary to multilobar pna HFpEF CAD s/p CABG HTN HLD CKD stage IV DM Hypokalemia Recommendations: - IV diuresis per nephrology, appreciate recs -Elevated troponin is likely demand ischemia in setting of acute hypoxic respiratory failure, sepsis with multilobar pneumonia. It has now trended down. EKG is without acute changes. Recent echo with normal LV function no wall wall motion abnormality continue aspirin -Continuous telemetry monitoring -Potassium now repleted, trend bmp -Continue his home statin, metoprolol -Antibiotics per medical team - He is a likely candidate for dialysis in the future, possible renal transplant The plan was discussed with Dr. Valles. Addendum to follow. Thank you for the opportunity to assist in the patient's care. These do not hesitate to call with any questions. Deondre Ruelas PA-C [facility] [address], [address] [place] [address] Consult Acknowledgment - Thank you for your consult request. Hai CASEY,[facility] 11/10/17 1734: Attending MD Review Statement Attending Sign Off Other Findings: I have personally seen and examined this patient and directed the cardiac plan of care. The minimal troponin elevation is not consistent with acute coronary syndrome. The patient does have volume overload and requires diuresis. Carlito Valles MD [facility] Assessment/Plan Consult Acknowledgment - Thank you for your consult request.
--- NOTE | 2017-11-10 11:21 | PN- Nephrology ---
Assessment/Plan Nephrology Assessment: CKD 5 very near to needing to start dialysis. He is admitted with fever and SOB and is markedly fluid overloaded on exam. He tells me he takes 120 lasix daily at home. Would start him on IV lasix 80-100 mg IV bid to tid until edema better than transition back to po. If he has inadequate diuresis with IV lasix, metolazone can be added. He does not need dialysis now but it may come to that if we are unable to adequately diurese with lasix. Thanks will follow. Discussed with ICU team Chema Arceo MD Suggestion: . Subjective Subjective: Please see Nephrology Consult September 24 2017 for prior details. Mr Wilmar was recently discharged from [facility] (end of September 2017) He has CKD V and is followed by Dr. Lizeth Pradhan in [place]. He is interested in doing PD when he needs dialysis. He is now admitted with fever and SOB. Objective Vital Signs and I&Os M in ICU on BIPAP 146/74 99.9 Skin neg rash Eyes anicteric ENT membranes moist Lungs posterior raled Cor RRR Abd obese N/T Ext 2+edema left foot wrapped Results Pertinent Lab Results: Laboratory Tests 11/10 11/10 0430 0100 Chemistry Sodium (137 - 145 mmol/L) 145 Potassium (3.5 - 5.1 mmol/L) 4.0 Chloride (98 - 107 mmol/L) 106 Carbon Dioxide (22 - 30 mmol/L) 18 L Anion Gap (5 - 16) 21 H BUN (9 - 20 mg/dL) 98 H Creatinine (0.7 - 1.2 mg/dL) 6.6 *H Estimated GFR (>60 ml/min) 9 L Glucose (65 - 99 mg/dL) 103 H Calcium (8.4 - 10.2 mg/dL) 8.2 L Phosphorus (2.5 - 4.5 mg/dL) 8.8 H Magnesium (1.6 - 2.3 mg/dL) 1.7 Total Bilirubin (0.2 - 1.3 mg/dL) 0.6 AST (17 - 59 U/L) 42 ALT (21 - 72 U/L) 23 Troponin I (<0.11 ng/ml) 0.59 *H Albumin (3.5 - 5.0 g/dL) 2.8 L Hematology CBC w Diff NO MAN DIFF REQ WBC (4.8 - 10.8 /CUMM) 9.5 RBC (4.70 - 6.10 /CUMM) 3.33 L Hgb (14.0 - 18.0 G/DL) 9.9 L Hct (42 - 52 %) 30.2 L MCV (80.0 - 94.0 FL) 90.6 MCH (27.0 - 31.0 PG) 29.6 MCHC (33.0 - 37.0 G/DL) 32.7 L RDW (11.5 - 14.5 %) 15.4 H Plt Count (130 - 400 /CUMM) 184 MPV (7.4 - 10.4 FL) 9.6 Gran % (42.2 - 75.2 %) 86.4 H Lymphocytes % (20.5 - 51.1 %) 6.2 L Monocytes % (1.7 - 9.3 %) 7.3 Eosinophils % (0 - 5 %) 0 Basophils % (0.0 - 2.0 %) 0.1 Absolute Granulocytes (1.4 - 6.5 /CUMM) 8.2 H Absolute Lymphocytes (1.2 - 3.4 /CUMM) 0.6 L Absolute Monocytes (0.10 - 0.60 /CUMM) 0.7 H Absolute Eosinophils (0.0 - 0.7 /CUMM) 0 Absolute Basophils (0.0 - 0.2 /CUMM) 0 Toxicology Urine Opiates Screen (>2000 NG/ML) < 100 Methadone Screen (>300 NG/ML) 56 Barbiturate Screen (>200 NG/ML) < 60 Ur Phencyclidine Scrn (>25 NG/ML) < 6.00 Amphetamines Screen (>1000 NG/ML) < 100 U Benzodiazepines Scrn (>200 NG/ML) < 85 Urine Cocaine Screen (>300 NG/ML) < 50 Urine Cannabis Screen (>50 NG/ML) < 5.00 Urines Urine Color (YEL,AMB,STR) YEL Urine Clarity (CLEAR) HAZY H Urine pH (5.0 - 8.0) 6.0 Ur Specific [place] (1.001 - 1.035) 1.025 Urine Protein (NEG,<30 MG/DL) >=300 H Urine Ketones (NEG) NEG Urine Nitrite (NEG) NEG Urine Bilirubin (NEG) NEG Urine Urobilinogen (0.1 - 1.0 EU/dl) 0.2 Ur Leukocyte Esterase (NEG) SMALL H Ur Microscopic SEDIMENT EXAMINED Urine RBC (0 - 5 /HPF) 1-3 Urine WBC (0 - 2 /HPF) > 75 H Ur Epithelial Cells (NONE,FEW) RARE Urine Bacteria (NEG/NONE) FEW H Urine Hemoglobin (NEG) MOD H Urine Glucose (N MG/DL) 100 H 11/09 1845 1728 Blood Gas pH (7.35 - 7.45 PH) 7.40 pCO2 (35 - 45 TORR) 31 L pO2 (80 - 100 TORR) 108 H HCO3 (21 - 28 MEQ/L) 18 L ABG O2 Sat (Measured) (>96.0 %) 97.0 P-50 (Temp Corrected) N Carboxyhemoglobin (1.5 - 5.0 %) 0.2 L O2 Concentration % 50 Temperature (97.0 - 100.0 FARH) 98.3 Respiration Rate (BPM) 18 O2 Delivery Method BIPAP Vent Mode ST Expiratory Pressure (CM H2O P) 6 Inspiratory Pressure (CM H2O P) 16 Chemistry Sodium (137 - 145 mmol/L) 141 Potassium (3.5 - 5.1 mmol/L) 2.9 *L Chloride (98 - 107 mmol/L) 104 Carbon Dioxide (22 - 30 mmol/L) 21 L Anion Gap (5 - 16) 16 BUN (9 - 20 mg/dL) 92 H Creatinine (0.7 - 1.2 mg/dL) 6.9 *H Estimated GFR (>60 ml/min) 8 L Glucose (65 - 99 mg/dL) 108 H Lactic Acid Cancelled Calcium (8.4 - 10.2 mg/dL) 7.9 L Phosphorus (2.5 - 4.5 mg/dL) 8.2 H Magnesium (1.6 - 2.3 mg/dL) 1.6 Total Bilirubin (0.2 - 1.3 mg/dL) 0.4 AST (17 - 59 U/L) 31 ALT (21 - 72 U/L) 24 Troponin I (<0.11 ng/ml) 0.82 *H Albumin (3.5 - 5.0 g/dL) 2.6 L Miscellaneous Phlebotomy Draw Site LEFT RADIAL 11/09 1430 Chemistry Sodium (137 - 145 mmol/L) 141 Potassium (3.5 - 5.1 mmol/L) 2.9 *L Chloride (98 - 107 mmol/L) 104 Carbon Dioxide (22 - 30 mmol/L) 19 L Anion Gap (5 - 16) 18 H BUN (9 - 20 mg/dL) 94 H Creatinine (0.7 - 1.2 mg/dL) 6.6 *H Estimated GFR (>60 ml/min) 9 L BUN/Creatinine Ratio (7 - 25 %) 14.2 Glucose (65 - 99 mg/dL) 106 H Hemoglobin A1c (4.2 - 5.8 %) Pending Lactic Acid (0.7 - 2.1 mmol/L) 1.1 Calcium (8.4 - 10.2 mg/dL) 8.2 L Phosphorus (2.5 - 4.5 mg/dL) 7.9 H Magnesium (1.6 - 2.3 mg/dL) 1.6 Total Bilirubin (0.2 - 1.3 mg/dL) 0.6 AST (17 - 59 U/L) 28 ALT (21 - 72 U/L) 22 Alkaline Phosphatase (< 127 U/L) 67 Troponin I (<0.11 ng/ml) 0.27 *H [id number]-Ddemakdibwj Pept (<125 pg/mL) 66771 H Total Protein (6.3 - 8.2 g/dL) 6.0 L Albumin (3.5 - 5.0 g/dL) 2.9 L Globulin (1.9 - 4.2 gm/dL) 3.1 Albumin/Globulin Ratio (1.1 - 2.2 %) 0.9 L Hematology CBC w Diff NO MAN DIFF REQ WBC (4.8 - 10.8 /CUMM) 12.5 H RBC (4.70 - 6.10 /CUMM) 3.23 L Hgb (14.0 - 18.0 G/DL) 9.5 L Hct (42 - 52 %) 29.2 L MCV (80.0 - 94.0 FL) 90.5 MCH (27.0 - 31.0 PG) 29.5 MCHC (33.0 - 37.0 G/DL) 32.7 L RDW (11.5 - 14.5 %) 15.8 H Plt Count (130 - 400 /CUMM) 199 MPV (7.4 - 10.4 FL) 9.2 Gran % (42.2 - 75.2 %) 90.4 H Lymphocytes % (20.5 - 51.1 %) 3.0 L Monocytes % (1.7 - 9.3 %) 6.6 Eosinophils % (0 - 5 %) 0 Basophils % (0.0 - 2.0 %) 0 Absolute Granulocytes (1.4 - 6.5 /CUMM) 11.3 H Absolute Lymphocytes (1.2 - 3.4 /CUMM) 0.4 L Absolute Monocytes (0.10 - 0.60 /CUMM) 0.8 H Absolute Eosinophils (0.0 - 0.7 /CUMM) 0 Absolute Basophils (0.0 - 0.2 /CUMM) 0
[2017-11-10 12:00] VITALS: BP 162/70
[2017-11-10 16:00] VITALS: BP 166/70
[2017-11-11] VITALS: BP 140/70
[2017-11-11 05:37] LABS: ABSOLUTE BASOPHIL COUNT 0 /CUMM (0.0-0.2); ABSOLUTE EOSINOPHIL COUNT 0 /CUMM (0.0-0.7); ABSOLUTE GRANULOCYTE CT 4.8 /CUMM (1.4-6.5); ABSOLUTE LYMPH COUNT 1.1 /CUMM (1.2-3.4); ABSOLUTE MONOCYTE COUNT 0.8 /CUMM (0.10-0.60); BASOPHIL % 0.1 % (0.0-2.0); EOSINOPHIL % 0.2 % (0-5); GRANULOCYTE % 72.3 % (42.2-75.2); HEMATOCRIT 27.3 % (42-52); MEAN CORPUSCULAR HGB 29.9 PG (27.0-31.0); MEAN CORPUSCULAR HGB CONC 32.8 G/DL (33.0-37.0); MEAN PLATELET VOLUME 9.6 FL (7.4-10.4); PLATELET COUNT 168 /CUMM (130-400); RBC DISTRIBUTION WIDTH 15.9 % (11.5-14.5); WHITE BLOOD CELL COUNT 6.7 /CUMM (4.8-10.8)
--- NOTE | 2017-11-11 07:16 | PN- Resident CRCU ---
See Addendum Subjective HPI/CRCU Issues: Sepsis with gram negative bacteremia Acute hypoxemic respiratory failure Elevated troponin, type II NSTEMI CKD Stage IV DM HTN 24 Hour Events: Patient was on BiPAP this morning, placed overnight because he didnt enjoy nasal high flow. Tmax 100.0 yesterday, on ceftazidime for gram negative bacteremia. Voiding into a urinal with positive fluid balance of ~1L from admission. Urine cultures polymicrobial. Patient rapidly desaturates without supplemental oxygen , currently on high flow nasal cannula with an FiO2 of 0.8. Patient is being aggressively diuresed today with both IV lasix and metolazone. Urology consulted, may need Aranda placement for strict I/O's Objective Vital Signs & I&O Last 8 Hrs of Vitals and I&O: Intake & Output 11/12 1599 Intake Total Output Total Balance Patient 131.57 kg Weight Tmax 100.0, current 98.1, HR 60s, 140s-180s/70s, SpO2 94% on high flow NC FiO2 0.8 Exam General Appearance: well developed/nourished, no apparent distress, alert, awake , mild distress, tachypnea, on high flow oxygen Respiratory: decreased breath sounds, rhonchi, diminished bibasilarly, bilateral diffuse rhonchi Cardiovascular: regular rate/rhythm, normal peripheral pulses Gastrointestinal: normal bowel sounds, soft, non-tender Extremities: swelling, 2+ bilateral LE and sacral pitting edema somewhat improved from admission, L heel deep nonhealing ulcer Current Medications: Current Medications Sig/Jose Angel Start time Last Medication Dose Route Stop Time Status Admin Acetaminophen 1,000 MG Q6P PRN 11/09 1800 AC 11/10 N/A 1 UNIT IV 1812 Acetaminophen 650 MG Q6P PRN 11/09 1645 AC PO Amlodipine Besylate 10 MG DAILY 11/11 0902 AC PO Aspirin 81 MG DAILY 11/10 0900 AC 11/11 PO 0915 Atorvastatin Calcium 40 MG DAILY@1700 11/10 1700 AC 11/10 PO 1613 Ceftazidime 1,000 MG DAILY@1400 11/10 1400 AC 11/10 IV 1613 Furosemide 100 MG 7:30 AM, & 4:30 PM 11/11 729 DC IV Furosemide 100 MG 7:30 AM, & 4:30 PM 11/11 729 AC 11/11 IV 0741 Furosemide 20 MG ONCE ONE 11/10 1700 DC 11/10 IV 11/10 1701 1707 Furosemide 80 MG 7:30 AM, & 4:30 PM 11/10 1630 DC 11/10 IV 1613 Furosemide 20 MG ONCE ONE 11/10 1215 DC 11/10 IV 11/10 1216 1251 Furosemide 60 MG ONCE ONE 11/10 1130 DC 11/10 IV 11/10 1131 1147 Heparin Sodium 5,000 UNIT Q8 11/09 2200 AC 11/11 (Porcine) SC 0601 Hydralazine HCl 50 MG TID 11/10 1400 AC 11/11 PO 0916 Hydralazine HCl 50 MG .STK-MED ONE 11/10 1355 DC PO 11/10 1356 Insulin Aspart 0 TIDAC 11/10 1200 AC 11/10 SC 1208 Insulin Detemir 8 UNITS BID 11/11 0900 AC 11/11 SC 0917 Insulin Detemir 16 UNITS BID 11/10 2100 DC 11/10 SC 2210 Insulin Human Regular 0 Q6 11/09 1800 DC SC Lidocaine 1 PAT DAILY@1900 11/10 1900 AC 11/10 EXT 2216 Lidocaine 1 PAT Q24H 11/09 1645 DC 11/09 EXT 1857 Magnesium Oxide 400 MG BID 11/09 2256 AC 11/11 PO 0914 Metolazone 2.5 MG ONCE ONE 11/11 1000 DC PO 11/11 1001 Metoprolol Tartrate 75 MG BID 11/10 0900 AC 11/10 PO 1917 Potassium Chloride 40 MEQ ONCE ONE 11/11 0745 DC 11/11 PO 11/11 0746 0915 Sevelamer Carbonate 1,600 MG TIDAC 11/10 1700 AC 11/11 PO 0915 Sevelamer Carbonate 1,600 MG TID 11/09 2100 DC 11/10 PO 0900 Sodium Bicarbonate 1,950 MG TID 11/09 2100 AC 11/11 PO 0915 Sodium Hypochlorite 1 MEI BID 11/09 2100 AC 11/11 TOP 0917 Vancomycin HCl 1,500 MG ONE ONE 11/10 1545 DC 11/10 Sodium Chloride 250 ML IV 11/10 1714 1802 Vancomycin HCl 1,500 MG ONCE ONE 11/10 1530 CAN IV 11/10 1531 Results Results: blood cultures 11/09 GNR, speciation pending MRSA nares positive screen CXR Findings: FINDINGS: The portable exam is suboptimal. Hypoexpanded lungs with diffuse parenchymal haziness throughout the right lung likely secondary to interstitial pneumonitis or asymmetric interstitial edema. Some consolidation is suspected in the right lower lobe. Relatively the left lung is expanded with some patchy opacity left lung base. The left upper lung is clear. There are median sternotomy sutures and mediastinal moni from previous intervention. No gross bony abnormality seen. IMPRESSION: Diffuse haziness throughout the right lung likely interstitial pneumonitis or asymmetric edema. Some parenchymal consolidation seen in the right lower lobe and haziness in the left lung base. Overall these findings are stable. Impression/Plan Impression/Problem List Impression: 80 year old male with PMH significant for insulin dependent DMII c/b neuropathy/ retinopathy, HFpEF, CKD stage IV/V on aranesp, procrit, and sevalamer, secondary to diabetic and obstructive nephropathy, h/o urethral strictures requiring intermittent straight catheterization, CAD s/p CABG (2005), HTN, and KALE on CPAP presented with fever and acute hypoxemic respiratory failure probable sepsis of urological origin, type II NSTEMI in the setting of infection, and hypoxemia attributed to volume overload, CKD, and HFpEF. Sepsis: Probable sepsis of urological origin With gram negative bacteremia, speciation and sensitivities Originally treated for HCAP with hypoxemia and fever, although hypoxemia may be related to volume overload and urinary source of gram negatives is also likely with left foot ulcer less so Ceftazidime 1g Q24H renally dosed Follow up blood cultures, stool cultures and c diff negative Urinalysis notable for pyuria, culture multiple colonies not speciated Strep pneumo and legionella urinary antigens negative, sputum unobtained Infectious disease consultation Tylenol for fever Repeat chest x-ray tomorrow, consider chest CT Leukocytosis improved on antibiotics Acute hypoxemic respiratory failure: Increased work of breathing, tachypnea, and hypoxemia on presentation Initially treated for possible HCAP, more likely related to volume overload, HFpEF, CKD BiPAP 16/6 FiO2 0.6 for increased work of breathing, KALE on CPAP 11cm H2O at home ABG 7.4/31/108 on fio2 of 0.5 Patient quickly desaturates to an SpO2 ~75% with tachypnea when BiPAP removed Change to high flow nasal cannula TRC evaluation Nebulized albuterol, pulmonary toilet, chest physiotherapy Elevated troponins, h/o CAD s/p CABG: Troponins elevated with nonspecific EKG changes, 0.27 on presentation now 1.17 Type II NSTEMI related to infection and volume overload with component of CKD Continue aspirin, atorvastatin, and metoprolol Patient of Dr. Cope'davonte in [place], obtain records for nuclear stress testing/ cardiac cath Cardiology consulted, follow up recommendations Echo 09/2017 LVEF >60%, RVSP 52mmHg, mild valvular disease CKD: Creatinine 5.0 and BUN 50s on prior admission BUN 91 and creatinine 6.8 on presentation today Atrophic kidneys on prior CT Patient of Dr. Lizeth Pradhan'davonte Nephrology consultation Urology consultation for Aranda placement, h/o obstructive uropathy and urethral strictures Continue phosphate binders and oral bicarbonate, calcium and procrit held for now Lasix 100mg IV BID and metazalone 2.5mg today Repleting hypokalemia, 3.6, given K 40meq PO Start fluid restriction 1000ml daily DM: Accuchecks TIDAC/HS, Levemir 8 units bid Novolog insulin sliding scale Hemoglobin A1C 6.5 HTN: Resumed home doses of metoprolol 75mg po bid, norvasc 10mg, hydralazine 50mg po tid Currently on lasix 100mg iv bid Systolic blood pressure 140-180s NPO for possible Aranda placemetn in the OR DVT ppx-heparin sc Full code Problem List: 1. Anasarca 2. Diabetes 3. Sepsis 4. Acute hypoxemic respiratory failure Pain Ratin Tomorrow's Labs & Rationales: cbc, icu, coags, hepatitis panel Plan DVT/Prophylaxis: mechanical, pharmacological
[2017-11-11 08:00] VITALS: BP 180/78
--- NOTE | 2017-11-11 09:25 | PN- Nephrology ---
Assessment/Plan Nephrology Assessment: Chronic kidney disease stage V: Due to diabetic nephropathy. Renal function currently at baseline range. Despite severe CK D, stage V, there is no emergent indication for dialysis at this point time. From a volume standpoint I suspect he is overloaded based on his chest x-ray and the fact that he has sacral edema. As an outpatient he requires high dose diuretic regimen including Lasix 120 in the morning with 40 in the afternoon or Bumex 3 mg morning and 1 mg the afternoon, coupled with metolazone 2.5 mg twice per week; I will continue the Lasix 100 g IV twice a day as you're doing and would give a dose of metolazone 2.5 mg by mouth 1 today and continue to assess ins and outs and daily weights and daily renal labs. Would start at 1 L per day fluid restriction to help in achieving a goal of 1-2 L net negative per 24 hours. Ultimately the patient prefers PD as his modality of choice however if he needs to start dialysis during this hospital stay when initiation of hemodialysis would be warranted via a dialysis catheter. UTI, gram-negative saran bacteremia: Follow up final blood cultures. The patient 's currently on renal dose ceftaz. Neurology to see as the patient also has a history of urethral stricture and may need a urethral dilatation potentially in the future. Based on his CAT scan from September there was no evidence of obstructive uropathy and his creatinine is currently at baseline. Suggestion: Continue Lasix 100 g IV twice a day Metolazone 2.5 mg by mouth 1 No acute dialytic need Check hepatitis B panel and coags in case the patient needs dialysis during this admission Cautiously replete potassium as you're doing Subjective Subjective: Remains on high flow O2 feels comfortable at rest taking PO, no vomiting fever improved blood cultures with GNRs; recent klebs UTI, now pyuria Review of Systems: Denies chest pain Denies vomiting diarrhea Denies problems urinating Objective Vital Signs and I&Os Vital Signs Date Time Temp Pulse Resp B/P B/P Pulse O2 O2 Flow FiO2 Mean Ox Delivery Rate 11/11 0916 61 169/73 11/11 0545 58 95 11/11 0400 94 BIPAP 80% 11/11 0312 59 96 11/11 0021 59 95 11/11 0000 96 BIPAP 90% 11/11 0000 98.8 58 28 140/70 96 BIPAP 90% 11/10 2243 61 92 07/29 2000 90 BIPAP 75% 11/10 1945 63 91 11/10 1917 66 180/75 11/10 1914 99.0 11/10 1812 100.0 11/10 1635 64 90 11/10 1600 90 BIPAP 60% 11/10 1600 97.9 61 26 166/70 90 BIPAP 60% 11/10 1425 59 95 11/10 1246 62 97 11/10 1200 99 BIPAP 60% 11/10 1200 98.6 58 24 162/70 88 BIPAP 60% 11/10 1131 97.2 Intake & Output 11/11 1600 11/11 0400 11/10 1600 11/10 0400 11/09 1600 11/09 0400 Intake Total 228 705 1863 730 0 Output Total 507 675 4498 50 Balance -500 438 515 680 0 Intake, IV 408 1050 530 Intake, Oral 100 480 590 200 0 Number 5 4 Bowel Movements Output, Stool 50 Output, Urine 153 579 6457 0 Patient 290 lb 285 lb Weight Weight Bed scale Bed scale Measurement Method Physical Exam: General: NAD, A+O x3. HEENT: NC/AT. No icterus. Moist mucosa Neck: no JVD CV: RRR, no m/r/g Pulm: CTAB, no rales Abd: soft, obese Lower Ext: neg edema or chronic venous changes Upper Ext: no AVFs or AVGs Back: negative for CVA tenderness Neuro: neg tremor, asterixis Skin: no rash, jaundice : no march catheter Current Medications: Current Medications Sig/Jose Angel Start time Last Medication Dose Route Stop Time Status Admin Acetaminophen 1,000 MG Q6P PRN 11/09 1800 AC 11/10 N/A 1 UNIT IV 1812 Acetaminophen 650 MG Q6P PRN 11/09 1645 AC PO Amlodipine Besylate 10 MG DAILY 11/11 0902 AC PO Aspirin 81 MG DAILY 11/10 0900 AC 11/11 PO 0915 Atorvastatin Calcium 40 MG DAILY@1700 11/10 1700 AC 11/10 PO 1613 Ceftazidime 1,000 MG DAILY@1400 11/10 1400 AC 11/10 IV 1613 Furosemide 100 MG 7:30 AM, & 4:30 PM 11/11 729 DC IV Furosemide 100 MG 7:30 AM, & 4:30 PM 11/11 07 AC 11/11 IV 0741 Furosemide 20 MG ONCE ONE 11/10 1700 DC 11/10 IV 11/10 1701 1707 Furosemide 80 MG 7:30 AM, & 4:30 PM 11/10 1630 DC 11/10 IV 1613 Furosemide 20 MG ONCE ONE 11/10 1215 DC 11/10 IV 11/10 1216 1251 Furosemide 60 MG ONCE ONE 11/10 1130 DC 11/10 IV 11/10 1131 1147 Heparin Sodium 5,000 UNIT Q8 11/09 2200 AC 11/11 (Porcine) SC 0601 Hydralazine HCl 50 MG TID 11/10 1400 AC 11/11 PO 0916 Hydralazine HCl 50 MG .STK-MED ONE 11/10 1355 DC PO 11/10 1356 Insulin Aspart 0 TIDAC 11/10 1200 AC 11/10 SC 1208 Insulin Detemir 8 UNITS BID 11/11 0900 AC 11/11 SC 0917 Insulin Detemir 16 UNITS BID 11/10 2100 DC 11/10 SC 2210 Insulin Human Regular 0 Q6 11/09 1800 DC PA Lidocaine 1 PAT DAILY@1900 11/10 1900 AC 11/10 EXT 2216 Lidocaine 1 PAT Q24H 11/09 1645 DC 11/09 EXT 1857 Magnesium Oxide 400 MG BID 11/09 2256 AC 11/11 PO 0914 Metolazone 2.5 MG ONCE ONE 11/11 1000 AC PO 11/11 1001 Metoprolol Tartrate 75 MG BID 11/10 0900 AC 11/10 PO 1917 Potassium Chloride 40 MEQ ONCE ONE 11/11 0745 DC 11/11 PO 11/11 0746 0915 Sevelamer Carbonate 1,600 MG TIDAC 11/10 1700 AC 11/11 PO 0915 Sevelamer Carbonate 1,600 MG TID 11/09 2100 DC 11/10 PO 0900 Sodium Bicarbonate 1,950 MG TID 11/09 2100 AC 11/11 PO 0915 Sodium Hypochlorite 1 MEI BID 11/09 2100 AC 11/11 TOP 0917 Vancomycin HCl 1,500 MG ONE ONE 11/10 1545 DC 11/10 Sodium Chloride 250 ML IV 11/10 1714 1802 Vancomycin HCl 1,500 MG ONCE ONE 11/10 1530 CAN IV 11/10 1531 Results Pertinent Lab Results: Laboratory Tests 11/11 11/10 11/10 0357 1850 1100 Chemistry Sodium (137 - 145 mmol/L) 144 Potassium (3.5 - 5.1 mmol/L) 3.4 L Chloride (98 - 107 mmol/L) 106 Carbon Dioxide (22 - 30 mmol/L) 23 Anion Gap (5 - 16) 15 BUN (9 - 20 mg/dL) 91 H Creatinine (0.7 - 1.2 mg/dL) 6.8 *H Estimated GFR (>60 ml/min) 8 L Glucose (65 - 99 mg/dL) 72 Calcium (8.4 - 10.2 mg/dL) 8.0 L Phosphorus (2.5 - 4.5 mg/dL) 7.4 H Magnesium (1.6 - 2.3 mg/dL) 1.8 Total Bilirubin (0.2 - 1.3 mg/dL) 0.3 AST (17 - 59 U/L) 34 ALT (21 - 72 U/L) 22 Troponin I (<0.11 ng/ml) 1.17 *H 0.69 *H Cancelled Albumin (3.5 - 5.0 g/dL) 2.5 L Hematology CBC w Diff NO MAN DIFF REQ WBC (4.8 - 10.8 /CUMM) 6.7 RBC (4.70 - 6.10 /CUMM) 3.00 L Hgb (14.0 - 18.0 G/DL) 9.0 L Hct (42 - 52 %) 27.3 L MCV (80.0 - 94.0 FL) 91.0 MCH (27.0 - 31.0 PG) 29.9 MCHC (33.0 - 37.0 G/DL) 32.8 L RDW (11.5 - 14.5 %) 15.9 H Plt Count (130 - 400 /CUMM) 168 MPV (7.4 - 10.4 FL) 9.6 Gran % (42.2 - 75.2 %) 72.3 Lymphocytes % (20.5 - 51.1 %) 15.9 L Monocytes % (1.7 - 9.3 %) 11.5 H Eosinophils % (0 - 5 %) 0.2 Basophils % (0.0 - 2.0 %) 0.1 Absolute Granulocytes (1.4 - 6.5 /CUMM) 4.8 Absolute Lymphocytes (1.2 - 3.4 /CUMM) 1.1 L Absolute Monocytes (0.10 - 0.60 /CUMM) 0.8 H Absolute Eosinophils (0.0 - 0.7 /CUMM) 0 Absolute Basophils (0.0 - 0.2 /CUMM) 0 11/10 11/10 0430 0100 Chemistry Sodium (137 - 145 mmol/L) 145 Potassium (3.5 - 5.1 mmol/L) 4.0 Chloride (98 - 107 mmol/L) 106 Carbon Dioxide (22 - 30 mmol/L) 18 L Anion Gap (5 - 16) 21 H BUN (9 - 20 mg/dL) 98 H Creatinine (0.7 - 1.2 mg/dL) 6.6 *H Estimated GFR (>60 ml/min) 9 L Glucose (65 - 99 mg/dL) 103 H Calcium (8.4 - 10.2 mg/dL) 8.2 L Phosphorus (2.5 - 4.5 mg/dL) 8.8 H Magnesium (1.6 - 2.3 mg/dL) 1.7 Total Bilirubin (0.2 - 1.3 mg/dL) 0.6 AST (17 - 59 U/L) 42 ALT (21 - 72 U/L) 23 Troponin I (<0.11 ng/ml) 0.59 *H Albumin (3.5 - 5.0 g/dL) 2.8 L Hematology CBC w Diff NO MAN DIFF REQ WBC (4.8 - 10.8 /CUMM) 9.5 RBC (4.70 - 6.10 /CUMM) 3.33 L Hgb (14.0 - 18.0 G/DL) 9.9 L Hct (42 - 52 %) 30.2 L MCV (80.0 - 94.0 FL) 90.6 MCH (27.0 - 31.0 PG) 29.6 MCHC (33.0 - 37.0 G/DL) 32.7 L RDW (11.5 - 14.5 %) 15.4 H Plt Count (130 - 400 /CUMM) 184 MPV (7.4 - 10.4 FL) 9.6 Gran % (42.2 - 75.2 %) 86.4 H Lymphocytes % (20.5 - 51.1 %) 6.2 L Monocytes % (1.7 - 9.3 %) 7.3 Eosinophils % (0 - 5 %) 0 Basophils % (0.0 - 2.0 %) 0.1 Absolute Granulocytes (1.4 - 6.5 /CUMM) 8.2 H Absolute Lymphocytes (1.2 - 3.4 /CUMM) 0.6 L Absolute Monocytes (0.10 - 0.60 /CUMM) 0.7 H Absolute Eosinophils (0.0 - 0.7 /CUMM) 0 Absolute Basophils (0.0 - 0.2 /CUMM) 0 Toxicology Random Vancomycin (ug/ml) 6.8 Urine Opiates Screen (>2000 NG/ML) < 100 Methadone Screen (>300 NG/ML) 56 Barbiturate Screen (>200 NG/ML) < 60 Ur Phencyclidine Scrn (>25 NG/ML) < 6.00 Amphetamines Screen (>1000 NG/ML) < 100 U Benzodiazepines Scrn (>200 NG/ML) < 85 Urine Cocaine Screen (>300 NG/ML) < 50 Urine Cannabis Screen (>50 NG/ML) < 5.00 Urines Urine Color (YEL,AMB,STR) YEL Urine Clarity (CLEAR) HAZY H Urine pH (5.0 - 8.0) 6.0 Ur Specific [place] (1.001 - 1.035) 1.025 Urine Protein (NEG,<30 MG/DL) >=300 H Urine Ketones (NEG) NEG Urine Nitrite (NEG) NEG Urine Bilirubin (NEG) NEG Urine Urobilinogen (0.1 - 1.0 EU/dl) 0.2 Ur Leukocyte Esterase (NEG) SMALL H Ur Microscopic SEDIMENT EXAMINED Urine RBC (0 - 5 /HPF) 1-3 Urine WBC (0 - 2 /HPF) > 75 H Ur Epithelial Cells (NONE,FEW) RARE Urine Bacteria (NEG/NONE) FEW H Urine Hemoglobin (NEG) MOD H Urine Glucose (N MG/DL) 100 H 11/09 2215 1728 Blood Gas pH (7.35 - 7.45 PH) 7.40 pCO2 (35 - 45 TORR) 31 L pO2 (80 - 100 TORR) 108 H HCO3 (21 - 28 MEQ/L) 18 L ABG O2 Sat (Measured) (>96.0 %) 97.0 P-50 (Temp Corrected) N Carboxyhemoglobin (1.5 - 5.0 %) 0.2 L O2 Concentration % 50 Temperature (97.0 - 100.0 FARH) 98.3 Respiration Rate (BPM) 18 O2 Delivery Method BIPAP Vent Mode ST Expiratory Pressure (CM H2O P) 6 Inspiratory Pressure (CM H2O P) 16 Chemistry Sodium (137 - 145 mmol/L) 141 Potassium (3.5 - 5.1 mmol/L) 2.9 *L Chloride (98 - 107 mmol/L) 104 Carbon Dioxide (22 - 30 mmol/L) 21 L Anion Gap (5 - 16) 16 BUN (9 - 20 mg/dL) 92 H Creatinine (0.7 - 1.2 mg/dL) 6.9 *H Estimated GFR (>60 ml/min) 8 L Glucose (65 - 99 mg/dL) 108 H Lactic Acid Cancelled Calcium (8.4 - 10.2 mg/dL) 7.9 L Phosphorus (2.5 - 4.5 mg/dL) 8.2 H Magnesium (1.6 - 2.3 mg/dL) 1.6 Total Bilirubin (0.2 - 1.3 mg/dL) 0.4 AST (17 - 59 U/L) 31 ALT (21 - 72 U/L) 24 Troponin I (<0.11 ng/ml) 0.82 *H Albumin (3.5 - 5.0 g/dL) 2.6 L Miscellaneous Phlebotomy Draw Site LEFT RADIAL 11/09 1430 Chemistry Sodium (137 - 145 mmol/L) 141 Potassium (3.5 - 5.1 mmol/L) 2.9 *L Chloride (98 - 107 mmol/L) 104 Carbon Dioxide (22 - 30 mmol/L) 19 L Anion Gap (5 - 16) 18 H BUN (9 - 20 mg/dL) 94 H Creatinine (0.7 - 1.2 mg/dL) 6.6 *H Estimated GFR (>60 ml/min) 9 L BUN/Creatinine Ratio (7 - 25 %) 14.2 Glucose (65 - 99 mg/dL) 106 H Hemoglobin A1c (4.2 - 5.8 %) 6.5 H Lactic Acid (0.7 - 2.1 mmol/L) 1.1 Calcium (8.4 - 10.2 mg/dL) 8.2 L Phosphorus (2.5 - 4.5 mg/dL) 7.9 H Magnesium (1.6 - 2.3 mg/dL) 1.6 Total Bilirubin (0.2 - 1.3 mg/dL) 0.6 AST (17 - 59 U/L) 28 ALT (21 - 72 U/L) 22 Alkaline Phosphatase (< 127 U/L) 67 Troponin I (<0.11 ng/ml) 0.27 *H [id number] Pept (<125 pg/mL) 57497 H Total Protein (6.3 - 8.2 g/dL) 6.0 L Albumin (3.5 - 5.0 g/dL) 2.9 L Globulin (1.9 - 4.2 gm/dL) 3.1 Albumin/Globulin Ratio (1.1 - 2.2 %) 0.9 L Hematology CBC w Diff NO MAN DIFF REQ WBC (4.8 - 10.8 /CUMM) 12.5 H RBC (4.70 - 6.10 /CUMM) 3.23 L Hgb (14.0 - 18.0 G/DL) 9.5 L Hct (42 - 52 %) 29.2 L MCV (80.0 - 94.0 FL) 90.5 MCH (27.0 - 31.0 PG) 29.5 MCHC (33.0 - 37.0 G/DL) 32.7 L RDW (11.5 - 14.5 %) 15.8 H Plt Count (130 - 400 /CUMM) 199 MPV (7.4 - 10.4 FL) 9.2 Gran % (42.2 - 75.2 %) 90.4 H Lymphocytes % (20.5 - 51.1 %) 3.0 L Monocytes % (1.7 - 9.3 %) 6.6 Eosinophils % (0 - 5 %) 0 Basophils % (0.0 - 2.0 %) 0 Absolute Granulocytes (1.4 - 6.5 /CUMM) 11.3 H Absolute Lymphocytes (1.2 - 3.4 /CUMM) 0.4 L Absolute Monocytes (0.10 - 0.60 /CUMM) 0.8 H Absolute Eosinophils (0.0 - 0.7 /CUMM) 0 Absolute Basophils (0.0 - 0.2 /CUMM) 0
--- NOTE | 2017-11-11 10:11 | Cons- CRCU ---
General Information and HPI Consulting Request Date of Consult: 11/11/17 Requested By: Dr. David Reason for Consult: acute hypoxemic respiratory failure Source of Information: patient Exam Limitations: no limitations History of Present Illness: 62-year-old man. Consultation for hypoxemic respiratory failure in the ICU. PMH significant for CHF with preserved EF. CKD, CAD, CABG in 2005, HTN, DM, KALE on CPAP. Presented for worseneing dyspnea, cough, discomfort in lower abdomen. Transferred to the ICU for significant hypoxemia. Had a fever on presentation 102.6. CXR with interstitial edema, worse on right. Elevated troponins. Initially placed on BiPAP then high flow o2. Aggressive diuresis with lasix was initiated with some improvement in status. Also hypertensive, tolerating diuresis well. No syncope or dizziness, no calf pain, has a chronic wound on LE. Currently no CP and dyspnea improved subjectively. No waldrop, no n/v/d/c. Allergies/Medications Allergies: Coded Allergies: baclofen (LOSE EYESIGHT AND MOTOR SKILLS PER PT 09/23/17) ciprofloxacin (From CIPRO) (FEVER PT PT 09/23/17) lisinopril (COUGH PER PT 09/23/17) Home Med List: Acetaminophen (Tylenol Extra Strength) 500 MG TABLET 1 TAB PO Q6 PRN KNEE PAIN (Reported) Amlodipine Besylate 10 MG TABLET 1 TAB PO DAILY HTN (Reported) Ammonium Lactate 12 % CREAM..G. 1 MEI TOP DAILY FEET (Reported) Atorvastatin Calcium 40 MG TABLET 1 TAB PO DAILY CHOL (Reported) Calcium Acetate 667 MG CAPSULE 1 CAP PO TID VITAMIN (Reported) Epoetin Chu (Procrit) 20,000 UNIT/ML VIAL 15,000 U SC ONCE A WEEK anemia Please coordinate with farm crops teacher regarding your weekly dosing. Fenofibrate Nanocrystallized (Fenofibrate) 145 MG TABLET 1 TAB PO DAILY URINE (Reported) Furosemide (Lasix) 40 MG TABLET 120 MG PO DAILY KIDNEY DISEASE Hydralazine HCl 50 MG TABLET 1 TAB PO TID BP (Reported) Insulin Aspart (Novolog) 100 UNIT/ML VIAL 0 UNITS SC TIDAC diabetes BEFORE MEALS Blood Insulin Sugar Units <80 0 81-100 0 101-200 1 201-250 2 251-300 3 301-350 4 351-400 6 >400 Call Doctor Insulin Lispro (Humalog) 100 UNIT/ML VIAL 1 UNIT SC TID DM (Reported) USE DIRECTED Lidocaine 5 % ADH..PATCH 3 PAT TOP DAILY PAIN (Reported) Lidocaine HCl (Xolido) 2 % CREAM.ML. 1 MEI TOP AD TOPICAL ANESTHETIC ( Reported) Metaxalone 800 MG TABLET 1 TAB PO TID PRN MUSCLE SPASMS (Reported) Metolazone 5 MG TABLET 1 TAB PO TUESTHURS BP (Reported) Metoprolol Tartrate (Lopressor) 50 MG TABLET 75 MG PO BID BP (Reported) Patiromer Calcium Sorbitex (Veltassa) 16.8 GRAM POWD.PACK 1 PKG PO DAILY UNK (Reported) Sevelamer Carbonate (Renvela) 800 MG TABLET 2 TAB PO TID KIDNEY (Reported) Sodium Bicarbonate 325 MG TABLET 1,950 MG PO TID KIDNEY DISEASE Trazodone HCl 50 MG TABLET 1 TAB PO QHS PRN SLEEP (Reported) Current Medications: Current Medications Sig/Jose Angel Start time Last Medication Dose Route Stop Time Status Admin Acetaminophen 1,000 MG Q6P PRN 11/09 1800 AC 11/10 N/A 1 UNIT IV 1812 Acetaminophen 650 MG Q6P PRN 11/09 1645 AC PO Amlodipine Besylate 10 MG DAILY 11/11 0902 AC PO Aspirin 81 MG DAILY 11/10 0900 AC 11/11 PO 0915 Atorvastatin Calcium 40 MG DAILY@1700 11/10 1700 AC 11/10 PO 1613 Ceftazidime 1,000 MG DAILY@1400 11/10 1400 AC 11/10 IV 1613 Furosemide 100 MG 7:30 AM, & 4:30 PM 11/11 07 DC IV Furosemide 100 MG 7:30 AM, & 4:30 PM 11/11 0730 AC 11/11 IV 0741 Furosemide 20 MG ONCE ONE 11/10 1700 DC 11/10 IV 11/10 1701 1707 Furosemide 80 MG 7:30 AM, & 4:30 PM 11/10 1630 DC 11/10 IV 1613 Furosemide 20 MG ONCE ONE 11/10 1215 DC 11/10 IV 11/10 1216 1251 Furosemide 60 MG ONCE ONE 11/10 1130 DC 11/10 IV 11/10 1131 1147 Heparin Sodium 5,000 UNIT Q8 11/09 2200 AC 11/11 (Porcine) SC 0601 Hydralazine HCl 50 MG TID 11/10 1400 AC 11/11 PO 0916 Hydralazine HCl 50 MG .STK-MED ONE 11/10 1355 DC PO 11/10 1356 Insulin Aspart 0 TIDAC 11/10 1200 AC 11/10 SC 1208 Insulin Detemir 8 UNITS BID 11/11 0900 AC 11/11 SC 0917 Insulin Detemir 16 UNITS BID 11/10 2100 DC 11/10 SC 2210 Insulin Human Regular 0 Q6 11/09 1800 DC SC Lidocaine 1 PAT DAILY@1900 11/10 1900 AC 11/10 EXT 2216 Lidocaine 1 PAT Q24H 11/09 1645 DC 11/09 EXT 1857 Magnesium Oxide 400 MG BID 11/09 2256 AC 11/11 PO 0914 Metolazone 2.5 MG ONCE ONE 11/11 1000 DC PO 11/11 1001 Metoprolol Tartrate 75 MG BID 11/10 0900 AC 11/10 PO 1917 Potassium Chloride 40 MEQ ONCE ONE 11/11 0745 DC 11/11 PO 11/11 0746 0915 Sevelamer Carbonate 1,600 MG TIDAC 11/10 1700 AC 11/11 PO 0915 Sevelamer Carbonate 1,600 MG TID 11/09 2100 DC 11/10 PO 0900 Sodium Bicarbonate 1,950 MG TID 11/09 2100 AC 11/11 PO 0915 Sodium Hypochlorite 1 MEI BID 11/09 2100 AC 11/11 TOP 0917 Vancomycin HCl 1,500 MG ONE ONE 11/10 1545 DC 11/10 Sodium Chloride 250 ML IV 11/10 1714 1802 Vancomycin HCl 1,500 MG ONCE ONE 11/10 1530 CAN IV 11/10 1531 Review of Systems Comments 18 pt ROS reviewed pertinent positives and negatives in chart otherwise negative Past History Travel History Traveled to [place] past 21 day No Medical History Neurological: peripheral neuropathy EENT: NONE Cardiovascular: hypertension, CABG Respiratory: NONE Gastrointestinal: GASTRIC BYPASS 2017 Hepatic: NONE Renal: KIDNEY DISEASE STAGE 4 Musculoskeletal: osteoarthritis, leg injury r/t accident Psychiatric: substance abuse, (history 30+ years) Endocrine: diabetes Blood Disorders: DVT Cancer(s): NONE 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 self Services at Home: Home Health Aide, Nursing Primary Language: Greenlandic Smoking Status: Former Smoker ETOH Use: denies use Illicit Drug Use: denies illicit drug use Functional Ability ADLs Independent: dressing, eating. Needs Assist: toileting, bathing. Ambulation: walker IADLs Independent: food prep. Needs Assist: shopping, housework, medication admin. 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 Exam & Diagnostic Data Last 24 Hrs of Vital Signs/I&O Vital Signs Date Time Temp Pulse Resp B/P B/P Pulse O2 O2 Flow FiO2 Mean Ox Delivery Rate 11/11 0916 61 169/73 11/11 0800 94 Nasal 80% Cannula 11/11 0800 98.1 64 26 180/78 94 Nasal 80% Cannula 11/11 0545 58 95 11/11 0400 94 BIPAP 80% 11/11 0312 59 96 11/11 0021 59 95 11/11 0000 96 BIPAP 90% 11/11 0000 98.8 58 28 140/70 96 BIPAP 90% 11/10 2243 61 92 11/10 2000 90 BIPAP 75% 11/10 1945 63 91 11/10 1917 66 180/75 11/10 1914 99.0 11/10 1812 100.0 11/10 1635 64 90 11/10 1600 90 BIPAP 60% 11/10 1600 97.9 61 26 166/70 90 BIPAP 60% 11/10 1425 59 95 11/10 1246 62 97 11/10 1200 99 BIPAP 60% 11/10 1200 98.6 58 24 162/70 88 BIPAP 60% 11/10 1131 97.2 Intake & Output 11/11 1600 11/11 0800 11/11 0000 Intake Total 100 888 Output Total 600 450 Balance -500 438 Intake, IV 408 Intake, Oral 100 480 Output, Urine 600 450 Patient 290 lb Weight Physical Exam Other Physical Findings: gen-awake and alert heent-high flow NC cvs-s1,s2 lungs-rare rhonchi scattered, diminished bs at bases abd-soft, bs+ ext-chronic wound/dressing Last 48 Hrs of Labs/[place]: Laboratory Tests 11/11/17 0357: Anion Gap 15, Estimated GFR 8 L, Glucose 72, Calcium 8.0 L, Phosphorus 7.4 H, Magnesium 1.8, Total Bilirubin 0.3, AST 34, ALT 22, Troponin I 1.17 *H, Albumin 2.5 L, CBC w Diff NO MAN DIFF REQ, RBC 3.00 L, MCV 91.0, MCH 29.9, MCHC 32.8 L, RDW 15.9 H, MPV 9.6, Gran % 72.3, Lymphocytes % 15.9 L, Monocytes % 11.5 H , Eosinophils % 0.2, Basophils % 0.1, Absolute Granulocytes 4.8, Absolute Lymphocytes 1.1 L, Absolute Monocytes 0.8 H, Absolute Eosinophils 0, Absolute Basophils 0 11/10/17 1850: Troponin I 0.69 *H 11/10/17 1100: Troponin I Cancelled 11/10/17 0430: Anion Gap 21 H, Estimated GFR 9 L, Glucose 103 H, Calcium 8.2 L, Phosphorus 8.8 H, Magnesium 1.7, Total Bilirubin 0.6, AST 42, ALT 23, Troponin I 0.59 *H, Albumin 2.8 L, CBC w Diff NO MAN DIFF REQ, RBC 3.33 L, MCV 90.6, MCH 29.6, MCHC 32.7 L, RDW 15.4 H, MPV 9.6, Gran % 86.4 H, Lymphocytes % 6.2 L, Monocytes % 7.3, Eosinophils % 0, Basophils % 0.1, Absolute Granulocytes 8.2 H, Absolute Lymphocytes 0.6 L, Absolute Monocytes 0.7 H, Absolute Eosinophils 0, Absolute Basophils 0, Random Vancomycin 6.8 11/10/17 0100: Urine Opiates Screen < 100, Methadone Screen 56, Barbiturate Screen < 60, Ur Phencyclidine Scrn < 6.00, Amphetamines Screen < 100, U Benzodiazepines Scrn < 85, Urine Cocaine Screen < 50, Urine Cannabis Screen < 5.00, Urine Color YEL, Urine Clarity HAZY H, Urine pH 6.0, Ur Specific [place] 1.025, Urine Protein >= 300 H, Urine Ketones NEG, Urine Nitrite NEG, Urine Bilirubin NEG, Urine Urobilinogen 0.2, Ur Leukocyte Esterase SMALL H, Ur Microscopic SEDIMENT EXAMINED, Urine RBC 1-3, Urine WBC > 75 H, Ur Epithelial Cells RARE, Urine Bacteria FEW H, Urine Hemoglobin MOD H, Urine Glucose 100 H 11/09/17 2000: Anion Gap 16, Estimated GFR 8 L, Glucose 108 H, Calcium 7.9 L, Phosphorus 8.2 H, Magnesium 1.6, Total Bilirubin 0.4, AST 31, ALT 24, Troponin I 0.82 *H, Albumin 2.6 L 11/09/17 1845: pH 7.40, pCO2 31 L, pO2 108 H, HCO3 18 L, ABG O2 Sat (Measured) 97.0, P-50 ( Temp Corrected) N, Carboxyhemoglobin 0.2 L, O2 Concentration % 50, Temperature 98.3, Respiration Rate 18, O2 Delivery Method BIPAP, Vent Mode ST, Expiratory Pressure 6, Inspiratory Pressure 16, Phlebotomy Draw Site LEFT RADIAL 11/09/17 1728: Lactic Acid Cancelled 11/09/17 1430: Anion Gap 18 H, Estimated GFR 9 L, BUN/Creatinine Ratio 14.2, Glucose 106 H, Hemoglobin A1c 6.5 H, Lactic Acid 1.1, Calcium 8.2 L, Phosphorus 7.9 H, Magnesium 1.6, Total Bilirubin 0.6, AST 28, ALT 22, Alkaline Phosphatase 67, Troponin I 0.27 *H, [id number] Pept 74756 H, Total Protein 6.0 L, Albumin 2.9 L, Globulin 3.1, Albumin/Globulin Ratio 0.9 L, CBC w Diff NO MAN DIFF REQ, RBC 3.23 L, MCV 90.5, MCH 29.5, MCHC 32.7 L, RDW 15.8 H, MPV 9.2, Gran % 90.4 H, Lymphocytes % 3.0 L, Monocytes % 6.6, Eosinophils % 0, Basophils % 0, Absolute Granulocytes 11.3 H, Absolute Lymphocytes 0.4 L, Absolute Monocytes 0.8 H, Absolute Eosinophils 0, Absolute Basophils 0 Microbiology 11/10 99 URINE ROUT: Legionella Antigen - COMP 11/10 99 URINE ROUT: Streptococcus pneumoniae Antigen (M - COMP 11/10 99 URINE ROUT: Urine Culture - COMP 11/09 1729 UPPER RESP: Surveillance Culture - COMP METH RESIST STAPH AUREUS 11/09 1729 GI: Surveillance Culture - COMP Assessment/Plan CRCU Impression/Plan: Impression 62 year old man * sepsis - likely urinary source - GNR bacteremia * acute hypoxemic respiratory failure secondary to volume overload * hx of b/l pleural effusions * CKD Plan Respiratory -off bipap, continue high flow and titrate fio2 to achieve spo2 goal >88% -repeat CXR -continue diuresis -given cxr findings doubt VTE, however if persistenty hypoxemic will pursue full workup ID -ID consultation requested by Dr. David -cont abx -f/u all cx CVS -cardiology appreciated -BP control Heme -monitor cbc, platelets Metabolic -nephrology appreciated -ins/outs -diuresis Alimentary -trial of diet, now that off bipap Neuro -no acute issues DVT prophylaxis at all times TTS 40 min Full Code Consult Acknowledgment - Thank you for your consult request.
--- NOTE | 2017-11-11 11:18 | PN- Cardiology ---
Subjective Subjective: Shortness of breath is improving. No chest pain. No palpitations. No diaphoresis. Objective Vital Signs and I&Os Vital Signs Date Time Temp Pulse Resp B/P B/P Pulse O2 O2 Flow FiO2 Mean Ox Delivery Rate 11/11 0916 61 169/73 11/11 0800 94 Nasal 80% Cannula 11/11 0800 98.1 64 26 180/78 94 Nasal 80% Cannula 11/11 0545 58 95 11/11 0400 94 BIPAP 80% 11/11 0312 59 96 11/11 0021 59 95 11/11 0000 96 BIPAP 90% 11/11 0000 98.8 58 28 140/70 96 BIPAP 90% 11/10 2243 61 92 11/10 2000 90 BIPAP 75% 11/10 1945 63 91 11/10 1917 66 180/75 11/10 1914 99.0 11/10 1812 100.0 11/10 1635 64 90 11/10 1600 90 BIPAP 60% 11/10 1600 97.9 61 26 166/70 90 BIPAP 60% 11/10 1425 59 95 11/10 1246 62 97 11/10 1200 99 BIPAP 60% 11/10 1200 98.6 58 24 162/70 88 BIPAP 60% 11/10 1131 97.2 Intake & Output 11/11 1600 11/11 0800 11/11 0000 11/10 1600 11/10 0800 11/10 0000 Intake Total 100 606 507 9690 730 Output Total 600 450 450 675 50 Balance -500 438 90 425 680 Intake, IV 408 150 900 530 Intake, Oral 100 480 390 200 200 Number 4 1 4 Bowel Movements Output, Stool 50 Output, Urine 600 450 450 675 0 Patient 290 lb 290 lb 285 lb Weight Weight Bed scale Bed scale Measurement Method Physical Exam: General Appearance: well developed/nourished, alert, awake, oriented Head: normal HEENT: Normal Neck: supple, JVP normal, carotid upstrokes normal bilaterally, no masses or thyromegaly Respiratory: chest non-tender, clear to auscultation and percussion bilaterally Cardiovascular: regular rate/rhythm, normal S1, S2, 1-2/6 systolic murmur Abdomen: normal bowel sounds, soft, non-tender Extremities: normal inspection, 2+ edema Vascular: Pulses are 2+ and equal bilaterally Neurologic: Grossly normal/nonfocal Current Medications: Current Medications Sig/Jose Angel Start time Last Medication Dose Route Stop Time Status Admin Acetaminophen 1,000 MG Q6P PRN 11/09 1800 AC 11/10 N/A 1 UNIT IV 1812 Acetaminophen 650 MG Q6P PRN 11/09 1645 AC PO Amlodipine Besylate 10 MG DAILY 11/11 0902 AC PO Aspirin 81 MG DAILY 11/10 0900 AC 11/11 PO 0915 Atorvastatin Calcium 40 MG DAILY@1700 11/10 1700 AC 11/10 PO 1613 Ceftazidime 1,000 MG DAILY@1400 11/10 1400 AC 11/10 IV 1613 Furosemide 100 MG 7:30 AM, & 4:30 PM 11/11 07 DC IV Furosemide 100 MG 7:30 AM, & 4:30 PM 11/11 0730 AC 11/11 IV 0741 Furosemide 20 MG ONCE ONE 11/10 1700 DC 11/10 IV 11/10 1701 1707 Furosemide 80 MG 7:30 AM, & 4:30 PM 11/10 1630 DC 11/10 IV 1613 Furosemide 20 MG ONCE ONE 11/10 1215 DC 11/10 IV 11/10 1216 1251 Furosemide 60 MG ONCE ONE 11/10 1130 DC 11/10 IV 11/10 1131 1147 Heparin Sodium 5,000 UNIT Q8 11/09 2200 AC 11/11 (Porcine) SC 0601 Hydralazine HCl 50 MG TID 11/10 1400 AC 11/11 PO 0916 Hydralazine HCl 50 MG .STK-MED ONE 11/10 1355 DC PO 11/10 1356 Insulin Aspart 0 TIDAC 11/10 1200 AC 11/10 SC 1208 Insulin Detemir 8 UNITS BID 11/11 0900 AC 11/11 SC 0917 Insulin Detemir 16 UNITS BID 11/10 2100 DC 11/10 SC 2210 Insulin Human Regular 0 Q6 11/09 1800 DC SC Lidocaine 1 PAT DAILY@1900 11/10 1900 AC 11/10 EXT 2216 Lidocaine 1 PAT Q24H 11/09 1645 DC 11/09 EXT 1857 Magnesium Oxide 400 MG BID 11/09 2256 AC 11/11 PO 0914 Metolazone 2.5 MG ONCE ONE 11/11 1000 DC PO 11/11 1001 Metoprolol Tartrate 75 MG BID 11/10 0900 AC 11/10 PO 1917 Potassium Chloride 40 MEQ ONCE ONE 11/11 0745 DC 11/11 PO 11/11 0746 0915 Sevelamer Carbonate 1,600 MG TIDAC 11/10 1700 AC 11/11 PO 0915 Sevelamer Carbonate 1,600 MG TID 11/09 2100 DC 11/10 PO 0900 Sodium Bicarbonate 1,950 MG TID 11/09 2100 AC 11/11 PO 0915 Sodium Hypochlorite 1 MEI BID 11/09 2100 AC 11/11 TOP 0917 Vancomycin HCl 1,500 MG ONE ONE 11/10 1545 DC 11/10 Sodium Chloride 250 ML IV 11/10 1714 1802 Vancomycin HCl 1,500 MG ONCE ONE 11/10 1530 CAN IV 11/10 1531 Results Last 48 Hrs of Labs/Mics: Laboratory Tests 11/11/17 0357: Anion Gap 15, Estimated GFR 8 L, Glucose 72, Calcium 8.0 L, Phosphorus 7.4 H, Magnesium 1.8, Total Bilirubin 0.3, AST 34, ALT 22, Troponin I 1.17 *H, Albumin 2.5 L, CBC w Diff NO MAN DIFF REQ, RBC 3.00 L, MCV 91.0, MCH 29.9, MCHC 32.8 L, RDW 15.9 H, MPV 9.6, Gran % 72.3, Lymphocytes % 15.9 L, Monocytes % 11.5 H , Eosinophils % 0.2, Basophils % 0.1, Absolute Granulocytes 4.8, Absolute Lymphocytes 1.1 L, Absolute Monocytes 0.8 H, Absolute Eosinophils 0, Absolute Basophils 0 11/10/17 1850: Troponin I 0.69 *H 11/10/17 1100: Troponin I Cancelled 11/10/17 0430: Anion Gap 21 H, Estimated GFR 9 L, Glucose 103 H, Calcium 8.2 L, Phosphorus 8.8 H, Magnesium 1.7, Total Bilirubin 0.6, AST 42, ALT 23, Troponin I 0.59 *H, Albumin 2.8 L, CBC w Diff NO MAN DIFF REQ, RBC 3.33 L, MCV 90.6, MCH 29.6, MCHC 32.7 L, RDW 15.4 H, MPV 9.6, Gran % 86.4 H, Lymphocytes % 6.2 L, Monocytes % 7.3, Eosinophils % 0, Basophils % 0.1, Absolute Granulocytes 8.2 H, Absolute Lymphocytes 0.6 L, Absolute Monocytes 0.7 H, Absolute Eosinophils 0, Absolute Basophils 0, Random Vancomycin 6.8 11/10/17 0100: Urine Opiates Screen < 100, Methadone Screen 56, Barbiturate Screen < 60, Ur Phencyclidine Scrn < 6.00, Amphetamines Screen < 100, U Benzodiazepines Scrn < 85, Urine Cocaine Screen < 50, Urine Cannabis Screen < 5.00, Urine Color YEL, Urine Clarity HAZY H, Urine pH 6.0, Ur Specific [place] 1.025, Urine Protein >= 300 H, Urine Ketones NEG, Urine Nitrite NEG, Urine Bilirubin NEG, Urine Urobilinogen 0.2, Ur Leukocyte Esterase SMALL H, Ur Microscopic SEDIMENT EXAMINED, Urine RBC 1-3, Urine WBC > 75 H, Ur Epithelial Cells RARE, Urine Bacteria FEW H, Urine Hemoglobin MOD H, Urine Glucose 100 H 11/09/171999: Anion Gap 16, Estimated GFR 8 L, Glucose 108 H, Calcium 7.9 L, Phosphorus 8.2 H, Magnesium 1.6, Total Bilirubin 0.4, AST 31, ALT 24, Troponin I 0.82 *H, Albumin 2.6 L 11/09/17 1845: pH 7.40, pCO2 31 L, pO2 108 H, HCO3 18 L, ABG O2 Sat (Measured) 97.0, P-50 ( Temp Corrected) N, Carboxyhemoglobin 0.2 L, O2 Concentration % 50, Temperature 98.3, Respiration Rate 18, O2 Delivery Method BIPAP, Vent Mode ST, Expiratory Pressure 6, Inspiratory Pressure 16, Phlebotomy Draw Site LEFT RADIAL 11/09/17 1728: Lactic Acid Cancelled 11/09/17 1430: Anion Gap 18 H, Estimated GFR 9 L, BUN/Creatinine Ratio 14.2, Glucose 106 H, Hemoglobin A1c 6.5 H, Lactic Acid 1.1, Calcium 8.2 L, Phosphorus 7.9 H, Magnesium 1.6, Total Bilirubin 0.6, AST 28, ALT 22, Alkaline Phosphatase 67, Troponin I 0.27 *H, [id number]-[id number] Pept [id number] H, Total Protein 6.0 L, Albumin 2.9 L, Globulin 3.1, Albumin/Globulin Ratio 0.9 L, CBC w Diff NO MAN DIFF REQ, RBC 3.23 L, MCV 90.5, MCH 29.5, MCHC 32.7 L, RDW 15.8 H, MPV 9.2, Gran % 90.4 H, Lymphocytes % 3.0 L, Monocytes % 6.6, Eosinophils % 0, Basophils % 0, Absolute Granulocytes 11.3 H, Absolute Lymphocytes 0.4 L, Absolute Monocytes 0.8 H, Absolute Eosinophils 0, Absolute Basophils 0 Microbiology 11/10 99 URINE ROUT: Legionella Antigen - COMP 11/10 99 URINE ROUT: Streptococcus pneumoniae Antigen (M - COMP 11/10 99 URINE ROUT: Urine Culture - COMP 11/09 1729 UPPER RESP: Surveillance Culture - COMP METH RESIST STAPH AUREUS 11/09 1729 GI: Surveillance Culture - COMP Assessment/Plan Assessment/Plan Assessment: 1. CAD, status post CABG 2. Hypertension 3. Diabetes mellitus 4. KALE 5. Acute on chronic HFpEF 6. Sepsis 7. Mild troponin elevation, likely secondary to demand ischemia Plan: * Continue Lasix as per nephrology * Monitor input and output * Check basic metabolic profile daily * Would increase hydralazine to 75 mg p.o. 3 times per day for additional blood pressure Continue telemetry? Yes
--- NOTE | 2017-11-11 11:39 | RADIOLOGY REPORT ---
EXAMINATION: XR PORTABLE CHEST CLINICAL INFORMATION: CHF. Interval improvement on IV Lasix? COMPARISON: Several prior chest x-rays, most recent of which is dated 11/10/2017. TECHNIQUE: Portable AP semierect view of the chest was obtained. FINDINGS: The patient is status post median sternotomy. The cardiomediastinal silhouette is enlarged, unchanged. There are diffuse bilateral fluffy airspace opacities again seen, mildly improved when compared to 11/09/2017 and difficult to compare to the more recent 11/10/2017 exam given patient rotation. No significant pleural effusion is seen. No pneumothorax is noted. Bony structures are unremarkable. IMPRESSION: Diffuse bilateral airspace opacities persist, mildly improved compared to 11/09/2017, consistent with improving pulmonary edema.
[2017-11-11 16:00] VITALS: BP 142/72
--- NOTE | 2017-11-11 17:16 | Cons- Infect Disease ---
General Information and HPI Consulting Request Date of Consult: 11/11/17 Requested By: Glen Mathur MD Reason for Consult: abx advice Source of Information: patient, primary team Exam Limitations: clinical condition History of Present Illness: 80 year old male with PMH significant for insulin dependent DMII c/b neuropathy/ retinopathy, HFpEF, CKD stage IV/V (planned peritoneal dialysis), anemia of chronic dx, urethral strictures, CAD s/p CABG (2005), HTN, KALE on CPAP, was brought in by ambulance to the hospital on 11/10 after his visiting nurse noticed him to be short of breath, hypoxemic and febrile. In the ED, he was saturating 88% on nonrebreather and started on BiPAP; Tmax 102.6F. He reported on admission that his symptoms first started with a cough two weeks ago.Cough was intermittently productive; no fresh blod or or clots noted. He felt feverish, hadchills, rhinorrhea, and diarrhea for the past week. No reported sick contacts, recent travel, or other upper respiratory symptoms. On admission he was treated with 1g IV Vancomycin and 2 g IV Ceftriaxone. His blood pressure, heart rate, and lactic acid were all within normal limits. Labs abnl, including leukocytosis with left shift. He was admitted to critical care for sepsis from multilobar pneumonia, acute hypoxemic respiratory failure, and type II NSTEMI. BC reported positive GNR; currently treated w/ iv ceftazidime. Overall feeling better. Allergies/Medications Allergies: Coded Allergies: baclofen (LOSE EYESIGHT AND MOTOR SKILLS PER PT 09/23/17) ciprofloxacin (From CIPRO) (FEVER PT PT 09/23/17) lisinopril (COUGH PER PT 09/23/17) Home Med List: Acetaminophen (Tylenol Extra Strength) 500 MG TABLET 1 TAB PO Q6 PRN KNEE PAIN (Reported) Amlodipine Besylate 10 MG TABLET 1 TAB PO DAILY HTN (Reported) Ammonium Lactate 12 % CREAM..G. 1 MEI TOP DAILY FEET (Reported) Atorvastatin Calcium 40 MG TABLET 1 TAB PO DAILY CHOL (Reported) Calcium Acetate 667 MG CAPSULE 1 CAP PO TID VITAMIN (Reported) Epoetin Chu (Procrit) 20,000 UNIT/ML VIAL 15,000 U SC ONCE A WEEK anemia Please coordinate with marbleizing machine tender regarding your weekly dosing. Fenofibrate Nanocrystallized (Fenofibrate) 145 MG TABLET 1 TAB PO DAILY URINE (Reported) Furosemide (Lasix) 40 MG TABLET 120 MG PO DAILY KIDNEY DISEASE Hydralazine HCl 50 MG TABLET 1 TAB PO TID BP (Reported) Insulin Aspart (Novolog) 100 UNIT/ML VIAL 0 UNITS SC TIDAC diabetes BEFORE MEALS Blood Insulin Sugar Units <80 0 81-100 0 101-200 1 201-250 2 251-300 3 301-350 4 351-400 6 >400 Call Doctor Insulin Lispro (Humalog) 100 UNIT/ML VIAL 1 UNIT SC TID DM (Reported) USE DIRECTED Lidocaine 5 % ADH..PATCH 3 PAT TOP DAILY PAIN (Reported) Lidocaine HCl (Xolido) 2 % CREAM.ML. 1 MEI TOP AD TOPICAL ANESTHETIC ( Reported) Metaxalone 800 MG TABLET 1 TAB PO TID PRN MUSCLE SPASMS (Reported) Metolazone 5 MG TABLET 1 TAB PO TUESTHURS BP (Reported) Metoprolol Tartrate (Lopressor) 50 MG TABLET 75 MG PO BID BP (Reported) Patiromer Calcium Sorbitex (Veltassa) 16.8 GRAM POWD.PACK 1 PKG PO DAILY UNK (Reported) Sevelamer Carbonate (Renvela) 800 MG TABLET 2 TAB PO TID KIDNEY (Reported) Sodium Bicarbonate 325 MG TABLET 1,950 MG PO TID KIDNEY DISEASE Trazodone HCl 50 MG TABLET 1 TAB PO QHS PRN SLEEP (Reported) Current Medications: Current Medications Sig/Jose Angel Start time Last Medication Dose Route Stop Time Status Admin Acetaminophen 1,000 MG Q6P PRN 11/09 1800 AC 11/11 N/A 1 UNIT IV 1444 Acetaminophen 650 MG Q6P PRN 11/09 1645 AC PO Amlodipine Besylate 10 MG DAILY 11/11 0902 AC 11/11 PO 1159 Aspirin 81 MG DAILY 11/10 0900 AC 11/11 PO 0915 Atorvastatin Calcium 40 MG DAILY@1700 11/10 1700 AC 11/10 PO 1613 Ceftazidime 1,000 MG DAILY@1400 11/10 1400 AC 11/11 IV 1436 Furosemide 100 MG 7:30 AM, & 4:30 PM 11/11 07 DC IV Furosemide 100 MG 7:30 AM, & 4:30 PM 11/11 0730 AC 11/11 IV 0741 Furosemide 20 MG ONCE ONE 11/10 1700 DC 11/10 IV 11/10 1701 1707 Heparin Sodium 5,000 UNIT Q8 11/09 2200 AC 11/11 (Porcine) SC 1436 Hydralazine HCl 75 MG TID 11/11 2100 AC PO Hydralazine HCl 50 MG TID 11/10 1400 DC 11/11 PO 0916 Insulin Aspart 0 TIDAC 11/10 1200 AC 11/10 SC 1208 Insulin Detemir 8 UNITS BID 11/11 0900 AC 11/11 SC 0917 Insulin Detemir 16 UNITS BID 11/10 2100 DC 11/10 SC 2210 Lidocaine 1 PAT DAILY@1900 11/10 1900 AC 11/10 EXT 2216 Magnesium Oxide 400 MG BID 11/09 2256 AC 11/11 PO 0914 Metolazone 2.5 MG ONCE ONE 11/11 1000 DC 11/11 PO 11/11 1001 1159 Metoprolol Tartrate 75 MG BID 11/10 0900 AC 11/11 PO 1159 Potassium Chloride 40 MEQ ONCE ONE 11/11 0745 DC 11/11 PO 11/11 0746 0915 Sevelamer Carbonate 1,600 MG TIDAC 11/10 1700 AC 11/11 PO 0915 Sodium Bicarbonate 1,950 MG TID 11/09 2100 AC 11/11 PO 1436 Sodium Hypochlorite 1 MEI BID 11/09 2100 AC 11/11 TOP 0917 Vancomycin HCl 1,500 MG ONE ONE 11/10 1545 DC 11/10 Sodium Chloride 250 ML IV 11/10 1714 1802 Past History Travel History Traveled to [place] past 21 day No Medical History Neurological: peripheral neuropathy EENT: NONE Cardiovascular: hypertension, CABG Respiratory: NONE Gastrointestinal: GASTRIC BYPASS 2016 Hepatic: NONE Renal: KIDNEY DISEASE STAGE 4 Musculoskeletal: osteoarthritis, leg injury r/t accident Psychiatric: substance abuse, (history 30+ years) Endocrine: diabetes Blood Disorders: DVT Cancer(s): NONE 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 self Services at Home: Home Health Aide, Nursing Primary Language: Wolof Smoking Status: Former Smoker ETOH Use: denies use Illicit Drug Use: denies illicit drug use Functional Ability ADLs Independent: dressing, eating. Needs Assist: toileting, bathing. Ambulation: walker IADLs Independent: food prep. Needs Assist: shopping, housework, medication admin. 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 Exam & Diagnostic Data Last 24 Hrs of Vital Signs/I&O Vital Signs Date Time Temp Pulse Resp B/P B/P Pulse O2 O2 Flow FiO2 Mean Ox Delivery Rate 11/11 1641 88 Nasal 80% Cannula 11/11 1600 95 Nasal 80% Cannula 11/11 1600 99.4 56 22 142/72 94 Nasal 80% Cannula 11/11 1438 93 Nasal 80% Cannula 11/11 1200 92 Nasal 80% Cannula 11/11 1159 64 172/82 11/11 1133 90 Nasal 80% Cannula 11/11 0916 61 169/73 11/11 0800 94 Nasal 80% Cannula 11/11 0800 98.1 64 26 180/78 94 Nasal 80% Cannula 11/11 0545 58 95 11/11 0400 94 BIPAP 80% 11/11 0312 59 96 11/11 0021 59 95 11/11 0000 96 BIPAP 90% 11/11 0000 98.8 58 28 140/70 96 BIPAP 90% 11/10 2243 61 92 11/10 2000 90 BIPAP 75% 11/10 1945 63 91 11/10 1917 66 180/75 11/10 1914 99.0 11/10 1812 100.0 Intake & Output 11/11 1600 11/11 0800 11/11 0000 Intake Total 730 100 888 Output Total 1625 600 450 Balance -895 -500 438 Intake, IV 130 408 Intake, Oral 600 100 480 Number 2 Bowel Movements Output, Urine 1625 600 450 Patient 290 lb Weight Physical Exam Other Physical Findings: General Appearance: no apparent distress, alert, awake, elevated BMI Head: atraumatic, normal appearance Respiratory: chest non-tender. Scattered rhonchi b/l lung rodriguez. No chest tenderness on palpation. Cardiovascular: regular rate/rhythm, No M/R/G Gastrointestinal: normal bowel sounds, soft, no organomegaly, mild tenderness on deep palpation SP area. Extremities: Dressing covering clean base heel ulcer on the R, clean, dry and intact. Cranial Nerves: Awake and alerrt; normal hearing, normal speech Last 24 Hours of Lab Results: Laboratory Tests 11/11 11/10 2219 2574 Chemistry Sodium (137 - 145 mmol/L) 144 Potassium (3.5 - 5.1 mmol/L) 3.4 L Chloride (98 - 107 mmol/L) 106 Carbon Dioxide (22 - 30 mmol/L) 23 Anion Gap (5 - 16) 15 BUN (9 - 20 mg/dL) 91 H Creatinine (0.7 - 1.2 mg/dL) 6.8 *H Estimated GFR (>60 ml/min) 8 L Glucose (65 - 99 mg/dL) 72 Calcium (8.4 - 10.2 mg/dL) 8.0 L Phosphorus (2.5 - 4.5 mg/dL) 7.4 H Magnesium (1.6 - 2.3 mg/dL) 1.8 Total Bilirubin (0.2 - 1.3 mg/dL) 0.3 AST (17 - 59 U/L) 34 ALT (21 - 72 U/L) 22 Troponin I (<0.11 ng/ml) 1.17 *H 0.69 *H Albumin (3.5 - 5.0 g/dL) 2.5 L Hematology CBC w Diff NO MAN DIFF REQ WBC (4.8 - 10.8 /CUMM) 6.7 RBC (4.70 - 6.10 /CUMM) 3.00 L Hgb (14.0 - 18.0 G/DL) 9.0 L Hct (42 - 52 %) 27.3 L MCV (80.0 - 94.0 FL) 91.0 MCH (27.0 - 31.0 PG) 29.9 MCHC (33.0 - 37.0 G/DL) 32.8 L RDW (11.5 - 14.5 %) 15.9 H Plt Count (130 - 400 /CUMM) 168 MPV (7.4 - 10.4 FL) 9.6 Gran % (42.2 - 75.2 %) 72.3 Lymphocytes % (20.5 - 51.1 %) 15.9 L Monocytes % (1.7 - 9.3 %) 11.5 H Eosinophils % (0 - 5 %) 0.2 Basophils % (0.0 - 2.0 %) 0.1 Absolute Granulocytes (1.4 - 6.5 /CUMM) 4.8 Absolute Lymphocytes (1.2 - 3.4 /CUMM) 1.1 L Absolute Monocytes (0.10 - 0.60 /CUMM) 0.8 H Absolute Eosinophils (0.0 - 0.7 /CUMM) 0 Absolute Basophils (0.0 - 0.2 /CUMM) 0 Last 24 Hours of [place] Results: Patient : VIANEY ZAMORA Acct: [id number] DR: Glen Mathur MD Birthdate: [birth year] Age/Sex: 62/M Unit: [id number] Loc: [facility] 107- [id number] Status : ADM IN SPEC #: [id number] HEYDI: 11/09/17 STATUS: RES RECD: 11/09/[address]: Yoon CASEY,[facility] SOURCE: BLOOD ENTR: 11/09/[address]: Guzman CASEY, Yosef SPDESC: 2ND/VENOUS ORDERED: BLOOD CULTURE Procedure Result > BLOOD CULTURE REPORT Preliminary 11/11/17 GRAM STAIN SUGGESTIVE OF: GRAM NEGATIVE RODS Called to/Readback by NUR. DASH AT 0400 11/10/17 LAB.JULI by LAB.SVCY 11/10/17 0658 GRAM NEGATIVE RODS Identification and sensitivities to follow Diagnostic Data Recent Imaging Findings: CXR FINDINGS: The patient is status post median sternotomy. The cardiomediastinal silhouette is enlarged, unchanged. There are diffuse bilateral fluffy airspace opacities again seen, mildly improved when compared to 11/09/2017 and difficult to compare to the more recent 11/10/2017 exam given patient rotation. No significant pleural effusion is seen. No pneumothorax is noted. Bony structures are unremarkable. IMPRESSION: Diffuse bilateral airspace opacities persist, mildly improved compared to 11/09/2017, consistent with improving pulmonary edema. DICTATED BY: Clementina Latif MD DATE/TIME DICTATED:11/11/171133 AIRLINE CAPTAIN:AMINATA DATE/TIME TRANSCRIBED:11/11/171133 Assessment/Plan Assessment/Plan Impression: 80 year old male with PMH significant for insulin dependent DMII c/b neuropathy/ retinopathy, HFpEF, CKD stage IV/V (planned peritoneal dialysis), anemia of chronic dx, urethral strictures, CAD s/p CABG, HTN, KALE and h/o Kleb pna UTI admitted w/ sepsis on 11/10/17. Eval multilobar pneumonia UTI/GNR bacteremia (ID and sensitivity pending) Leukocytosis resolved. MRSA colonized Suggestion: 1. Continue for now empiric abx coverage w/ renally dosed iv ceftazidime, as BC 2 out of 2 bottles positive GNR (possible pathogens E.coli, Proteus, Klebsiella, Ps. aeruginosa, etc); F/U BC/UC results to further guide abx therapy. He received vancomycin previous day; please obtain random vancomycin level on 11/12 in am. 2. Bladder scan q 8 h; if PVR >450 cc; Aranda cath to be placed by urology. 3. Consider CT A/P w/o contrast eval hydronephrosis. 4. Trend CBC, BMP. Repeat BC x1 on 11/12. 5. Sputum culture if productive cough. Consult Acknowledgment - Thank you for your consult request.
--- NOTE | 2017-11-11 17:20 | ULTRASOUND REPORT ---
EXAMINATION: US TRIPLEX OF LOWER EXTREMITIES, BILATERAL CLINICAL INFORMATION: Bilateral lower extremity swelling. COMPARISON: None TECHNIQUE: Color-flow triplex imaging with spectral analysis and compression Doppler were performed on the lower extremities. FINDINGS: Respiratory variation, normal compression and augmented flow are noted throughout the lower extremities. The visualized common femoral vein, superficial femoral vein, profunda femoral vein, popliteal vein and midcalf peroneal and posterior tibial venous segments show no evidence of deep venous thrombosis. There is no Sullivan's cyst. IMPRESSION: No evidence of deep venous thrombosis involving the bilateral lower extremities.
[2017-11-12] VITALS: BP 160/80
[2017-11-12 05:51] LABS: ABSOLUTE BASOPHIL COUNT 0 /CUMM (0.0-0.2); ABSOLUTE EOSINOPHIL COUNT 0 /CUMM (0.0-0.7); ABSOLUTE LYMPH COUNT 1.2 /CUMM (1.2-3.4); ABSOLUTE MONOCYTE COUNT 0.5 /CUMM (0.10-0.60); BASOPHIL % 0.3 % (0.0-2.0); EOSINOPHIL % 0.8 % (0-5); GRANULOCYTE % 69.3 % (42.2-75.2); HEMATOCRIT 29.2 % (42-52); MEAN CORPUSCULAR HGB 29.7 PG (27.0-31.0); MEAN CORPUSCULAR HGB CONC 32.6 G/DL (33.0-37.0); MEAN CORPUSCULAR VOLUME 91.1 FL (80.0-94.0); MEAN PLATELET VOLUME 9.4 FL (7.4-10.4); PLATELET COUNT 181 /CUMM (130-400); RBC DISTRIBUTION WIDTH 16.4 % (11.5-14.5); RED BLOOD CELL CT 3.21 /CUMM (4.70-6.10); WHITE BLOOD CELL COUNT 5.7 /CUMM (4.8-10.8)
[2017-11-12 06:04] LABS: PT 12.3 SEC (9.4-12.5); PTT 42 SEC (25-37)
--- NOTE | 2017-11-12 07:23 | PN- Resident CRCU ---
Sandoval CASEY,Waylon 11/12/17721: Subjective HPI/CRCU Issues: Sepsis with gram negative bacteremia Acute hypoxemic respiratory failure Elevated troponin, type II NSTEMI CKD Stage IV DM HTN 24 Hour Events: Remains on high flow nasal cannula fio2 0.8 Afebrile overnight Gram negative bacteremia, gallo sensitive proteus Urine cultures polymicrobial. Antibiotic coverage narrowed Diuresing with IV lasix and metolazone but inaccurate I/Os Started 1L fluid restriction Patient rapidly desaturates without supplemental oxygen Interval improvement on chest x-ray after diuresis Objective Vital Signs & I&O Last 8 Hrs of Vitals and I&O: Vital Signs Date Time Temp Pulse Resp B/P B/P Pulse O2 O2 Flow FiO2 Mean Ox Delivery Rate 11/12 08 58 138/64 11/12 0834 58 138/64 11/12 08 94 Nasal 80% Cannula 11/13 799 98.4 58 22 170/84 94 Nasal 80% Cannula 11/12 0750 92 Nasal 80% Cannula Exam General Appearance: well developed/nourished, no apparent distress, alert, awake , on high flow nasal cannula Respiratory: lungs clear, decreased breath sounds, diminished bibasilarly Cardiovascular: regular rate/rhythm, normal peripheral pulses Gastrointestinal: normal bowel sounds, soft, non-tender Extremities: normal inspection, normal capillary refill, normal range of motion, 2+ lower extremity pitting edema Current Medications: Current Medications Sig/Jose Angel Start time Last Medication Dose Route Stop Time Status Admin Acetaminophen 1,000 MG .STK-MED ONE 11/11 1443 DC IV 11/11 1444 Acetaminophen 1,000 MG Q6P PRN 11/09 1800 AC 11/11 N/A 1 UNIT IV 1444 Acetaminophen 650 MG Q6P PRN 11/09 1645 AC PO Amlodipine Besylate 10 MG DAILY 11/11 0902 AC 11/12 PO 0834 Aspirin 81 MG DAILY 11/10 0900 AC 11/12 PO 0833 Atorvastatin Calcium 40 MG DAILY@1700 11/10 1700 AC 11/11 PO 1719 Ceftazidime 1,000 MG DAILY@1400 11/10 1400 DC 11/11 IV 1436 Ceftriaxone Sodium 1,000 MG DAILY 11/12 1215 AC IV Furosemide 100 MG 7:30 AM, & 4:30 PM 11/11 07 AC 11/12 IV 0936 Heparin Sodium 5,000 UNIT Q8 11/09 2200 AC 11/12 (Porcine) SC 0642 Hydralazine HCl 75 MG TID 11/11 2100 AC 11/12 PO 0834 Hydralazine HCl 50 MG TID 11/10 1400 DC 11/11 PO 0916 Insulin Aspart 0 TIDAC 11/10 1200 AC 11/10 SC 1208 Insulin Detemir 4 UNITS BID 11/12 0900 AC SC Insulin Detemir 8 UNITS BID 11/11 0900 DC 11/11 SC 0917 Lidocaine 1 PAT DAILY@1900 11/10 1900 AC 11/11 EXT 1948 Magnesium Oxide 400 MG BID 11/09 2256 AC 11/12 PO 0834 Metolazone 2.5 MG ONCE ONE 11/12 1215 DC PO 11/12 1216 Metoprolol Tartrate 75 MG BID 11/10 0900 AC 11/12 PO 0835 Sevelamer Carbonate 1,600 MG TIDAC 11/10 1700 AC 11/12 PO 0835 Sodium Bicarbonate 1,950 MG TID 11/09 2100 AC 11/12 PO 0834 Sodium Hypochlorite 1 MEI BID 11/09 2100 AC 11/12 TOP 0936 CXR Findings: Significant interval improvement since prior study dated 11/11/2017 in the form of markedly improved aeration within the right hemithorax. Residual disease is still noted at the left [id number] lung field. Impression/Plan Impression/Problem List Impression: 80 year old male with PMH significant for insulin dependent DMII c/b neuropathy/ retinopathy, HFpEF, CKD stage IV/V on aranesp, procrit, and sevalamer, secondary to diabetic and obstructive nephropathy, h/o urethral strictures requiring intermittent straight catheterization, CAD s/p CABG (2005), HTN, and KALE on CPAP presented with fever and acute hypoxemic respiratory failure probable sepsis of urological origin, type II NSTEMI in the setting of infection, and hypoxemia attributed to volume overload, CKD, and HFpEF. Sepsis: Probable sepsis of urological origin, urine culture polymicrobial, pyuria on UA With gram negative bacteremia, cultures positive for Morganella morganii and proteus Antibiotic coverage narrowed from ceftazidime to ceftriaxone 1g daily Follow up repeat blood cultures MRSA nares positive, vancomycin random 14, vancomycin 500mg today Infectious disease consultation, follow up recommendations Tylenol for fever Leukocytosis improved on antibiotics Acute hypoxemic respiratory failure: Increased work of breathing, tachypnea, and hypoxemia on presentation Likely related to volume overload, HFpEF, CKD Stable on high flow nasal oxygen Chest x-ray showed interval improvement with aggressive diuresis TRC evaluation Nebulized albuterol, pulmonary toilet, chest physiotherapy Consider chest CT when clinical condition is improved Will try to decreased FiO2 requirement with continuing diuresis Elevated troponins, acute exacerbation of HFpEF, h/o CAD s/p CABG: Troponins elevated with nonspecific EKG changes, downtrending from 1.17 Type II NSTEMI related to infection and volume overload with component of CKD Continue aspirin, atorvastatin, and metoprolol Cardiology consulted, follow up recommendations Echo 09/2017 LVEF >60%, RVSP 52mmHg, mild valvular disease CKD: Creatinine 5.0 and BUN 50s on prior admission BUN 91 and creatinine 6.8 on presentation today Atrophic kidneys on prior CT Patient of Dr. Lizeth Pradhan's Nephrology consultation Continue phosphate binders and oral bicarbonate, calcium and procrit held for now Lasix 100mg IV BID and metazalone 2.5mg today Fluid restriction 1000ml daily Urology consultation for intraoperative Aranda placement given history of obstructive uropathy and urethral strictures and inaccurate I/O's with aggressive IV diuretics, deferred at this time because of severe hypoxemic respiratory failure, will reconsult if clinically necessary DM: Accuchecks TIDAC/HS, 60-120 Levemir reduced to 4 units bid Novolog insulin sliding scale Hemoglobin A1C 6.5 HTN: Resumed home doses of metoprolol 75mg po bid, norvasc 10mg, hydralazine 50mg po tid Currently on lasix 100mg iv bid Systolic blood pressure 140-160s Diabetic diet DVT ppx-heparin sc Full code Problem List: 1. Bilateral pleural effusion 2. Anasarca 3. Sepsis 4. Acute hypoxemic respiratory failure Pain Ratin Tomorrow's Labs & Rationales: cbc, icu Plan DVT/Prophylaxis: mechanical, pharmacological Glen Mathur MD 11/12/17 1108: Attending MD Review Statement Attending Sign Off Attending Cosign Statement: I have: examined this patient, reviewed [facility] EMR data, personally reviewd images, discussd w/resident/PA/[employer], discussed mgmt plan w/shailesh, discussed mgmt plan w/CM, discussed mgmt plan w/pt, agreed w/resident/PA/[employer], amended to note. Other Findings: Impression 62 year old man * sepsis - likely urinary source - proteus & morganella bacteremia - MRSA surveillance * acute hypoxemic respiratory failure secondary to volume overload * hx of b/l pleural effusions * CKD Plan Respiratory -off bipap, continue high flow and titrate fio2 to achieve spo2 goal >88% -repeat CXR 11/13 -continue diuresis -improving imaging ID -ID consultation appreciated -cont abx -f/u all cx CVS -cardiology appreciated -BP control Heme -monitor cbc, platelets Metabolic -nephrology appreciated -ins/outs -diuresis Alimentary -trial of diet, now that off bipap Neuro -no acute issues DVT prophylaxis at all times TTS 40 min Full Code From urology perspective - d/w Dr. Cancino that pt declines bedside procedure for catheterization given significant discomfort historically. He is unstable for the OR at this time for a non emergent procedure, will re-evaluate on an ongoing basis.
[2017-11-12 08:00] VITALS: BP 170/84
--- NOTE | 2017-11-12 08:52 | RADIOLOGY REPORT ---
EXAMINATION: XR PORTABLE CHEST CLINICAL INFORMATION: CHF. For followup. COMPARISON: Chest done on 11/11/2017 TECHNIQUE: Portable frontal view of the chest was obtained. FINDINGS: Significantly improved aeration is noted bilaterally (right greater than left). Residual airspace disease is still noted at the left lung base and left perihilar region. The cardiomediastinal silhouette is mildly enlarged. There is no radiographic evidence of any definite pleural effusion present. Postoperative changes of sternotomy are noted. The visualized upper abdomen is unremarkable. Overall, there is significant interval improvement noted. IMPRESSION: Significant interval improvement since prior study dated 11/11/2017 in the form of markedly improved aeration within the right hemithorax. Residual disease is still noted at the left [id number] lung field.
--- NOTE | 2017-11-12 09:34 | PN- Nephrology ---
Assessment/Plan Nephrology Assessment: Chronic kidney disease stage V: Due to diabetic nephropathy. Renal function currently at baseline range with creat of 5s-6s at baseline. Despite severe CKD , stage V, there is no emergent indication for dialysis at this point time. From a volume standpoint I suspect he is overloaded based on his chest x-ray and the fact that he has sacral edema/pedal edema. As an outpatient he requires high dose diuretic regimen including Lasix 120 in the morning with 40 in the afternoon or Bumex 3 mg morning and 1 mg the afternoon, coupled with metolazone 2.5 mg twice per week; I will continue the Lasix 100 g IV twice a day as you're doing and would again give a dose of metolazone 2.5 mg by mouth 1 today and continue to assess ins and outs and daily weights and daily renal labs. Ultimately the patient prefers PD as his modality of choice however if he needs to start dialysis during this hospital stay when initiation of hemodialysis would be warranted via a dialysis catheter. UTI, bacteremia (morganella, proteus): Follow up final blood cultures. The patient's currently on renal dose ceftaz. Based on his CAT scan from September there was no evidence of obstructive uropathy and his creatinine is currently at baseline. As per ID consider repeat study given recurrent UTI and now bacteremia. Suggestion: Continue Lasix 100 g IV twice a day Metolazone 2.5 mg by mouth 1 again No acute dialytic need 1L/day fluid restriction antibiotics per ID monitor post void bladder scans to confirm lack of retention as suggested with ID consider CT abd/pelvis w/o contrast to eval urinary tract Subjective Subjective: No acute events net 1L negative, good UO; sp lasix 100 iv x2 and metol 2.5 po x1 on high flow O2 80% Review of Systems: no chest pain no dysuria no vomiting/diarrhea taking some PO Objective Vital Signs and I&Os Vital Signs Date Time Temp Pulse Resp B/P B/P Pulse O2 O2 Flow FiO2 Mean Ox Delivery Rate 11/12 833 58 138/64 11/13 0734 58 138/64 11/13 799 94 Nasal 80% Cannula 11/13 799 98.4 58 22 170/84 94 Nasal 80% Cannula 11/12 0750 92 Nasal 80% Cannula 11/12 0423 66 100 11/12 0400 99 Nasal 80% Cannula 11/12 0310 54 94 11/12 0023 53 96 11/12 0000 97.8 56 20 160/80 95 BIPAP 80% 11/12 0000 95 BIPAP 80% 11/11 2257 92 91 11/11 2202 97.7 62 20 161/74 11/11 2000 95 Nasal 80% Cannula 11/11 1959 89 Nasal 80% Cannula 11/11 1641 88 Nasal 80% Cannula 11/11 1600 95 Nasal 80% Cannula 11/11 1600 99.4 56 22 142/72 94 Nasal 80% Cannula 11/11 1438 93 Nasal 80% Cannula 11/11 1200 92 Nasal 80% Cannula 11/11 1159 64 172/82 11/11 1133 90 Nasal 80% Cannula Intake & Output 11/12 1600 11/12 0400 11/11 1600 11/11 0400 11/10 1600 11/10 0400 Intake Total 200 760 014 061 9270 730 Output Total 639 505 0670 450 1125 50 Balance -500 360 -1395 438 515 680 Intake, IV 40 752 952 6188 530 Intake, Oral 200 720 700 480 590 200 Number 2 2 2 5 4 Bowel Movements Output, Stool 50 Output, Urine 435 309 7590 450 1125 0 Patient 290 lb 290 lb 285 lb Weight Weight Bed scale Bed scale Measurement Method Physical Exam: General: NAD, A+O x3. HEENT: NC/AT. No icterus. Moist mucosa Neck: no JVD CV: RRR, no m/r/g Pulm: dec BS at bases Abd: soft, obese Lower Ext: 1+ edema Upper Ext: no AVFs or AVGs Back: negative for CVA tenderness Neuro: neg tremor, asterixis Skin: no rash, jaundice : no march catheter Current Medications: Current Medications Sig/Jose Angel Start time Last Medication Dose Route Stop Time Status Admin Acetaminophen 1,000 MG .STK-MED ONE 11/11 1443 DC IV 11/11 1444 Acetaminophen 1,000 MG Q6P PRN 11/09 1800 AC 11/11 N/A 1 UNIT IV 1444 Acetaminophen 650 MG Q6P PRN 11/09 1645 AC PO Amlodipine Besylate 10 MG DAILY 11/11 0902 AC 11/12 PO 0834 Aspirin 81 MG DAILY 11/10 0900 AC 11/12 PO 0833 Atorvastatin Calcium 40 MG DAILY@1700 11/10 1700 AC 07/30 PO 1719 Ceftazidime 1,000 MG DAILY@1400 11/10 1400 AC 11/11 IV 1436 Furosemide 100 MG 7:30 AM, & 4:30 PM 11/11 07 AC 11/11 IV 1719 Heparin Sodium 5,000 UNIT Q8 11/09 2200 AC 11/12 (Porcine) SC 0642 Hydralazine HCl 75 MG TID 11/11 2100 AC 11/12 PO 0834 Hydralazine HCl 50 MG TID 11/10 1400 DC 11/11 PO 0916 Insulin Aspart 0 TIDAC 11/10 1200 AC 11/10 SC 1208 Insulin Detemir 4 UNITS BID 11/12 0900 AC IN Insulin Detemir 8 UNITS BID 11/11 0900 DC 11/11 SC 0917 Lidocaine 1 PAT DAILY@1900 11/10 1900 AC 11/11 EXT 1948 Magnesium Oxide 400 MG BID 11/09 2256 AC 11/12 PO 0834 Metolazone 2.5 MG ONCE ONE 11/11 1000 DC 11/11 PO 11/11 1001 1159 Metoprolol Tartrate 75 MG BID 11/10 0900 AC 11/12 PO 0835 Sevelamer Carbonate 1,600 MG TIDAC 11/10 1700 AC 11/12 PO 0835 Sodium Bicarbonate 1,950 MG TID 11/09 2100 AC 11/12 PO 0834 Sodium Hypochlorite 1 MEI BID 11/09 2100 AC 11/11 TOP 2100 Results Pertinent Lab Results: Laboratory Tests 11/12 11/12 11/11 0450 0030 1757 Chemistry Sodium (137 - 145 mmol/L) 145 143 Potassium (3.5 - 5.1 mmol/L) 3.9 3.8 Chloride (98 - 107 mmol/L) 104 104 Carbon Dioxide (22 - 30 mmol/L) 26 23 Anion Gap (5 - 16) 15 17 H BUN (9 - 20 mg/dL) 91 H 93 H Creatinine (0.7 - 1.2 mg/dL) 6.7 *H 6.3 *H Estimated GFR (>60 ml/min) 8 L 9 L BUN/Creatinine Ratio (7 - 25 %) 14.8 Glucose (65 - 99 mg/dL) 76 Lactic Acid (0.7 - 2.1 mmol/L) 0.6 L Calcium (8.4 - 10.2 mg/dL) 8.2 L Phosphorus (2.5 - 4.5 mg/dL) 6.9 H Magnesium (1.6 - 2.3 mg/dL) 1.9 Total Bilirubin (0.2 - 1.3 mg/dL) 0.4 AST (17 - 59 U/L) 35 ALT (21 - 72 U/L) 22 Troponin I (<0.11 ng/ml) 0.94 *H 0.97 *H 1.22 *H Albumin (3.5 - 5.0 g/dL) 2.8 L Coagulation PT (9.4 - 12.5 SEC) 12.3 INR (0.90 - 1.17) 1.13 APTT (25 - 37 SEC) 42 H Hematology CBC w Diff NO MAN DIFF REQ WBC (4.8 - 10.8 /CUMM) 5.7 RBC (4.70 - 6.10 /CUMM) 3.21 L Hgb (14.0 - 18.0 G/DL) 9.5 L Hct (42 - 52 %) 29.2 L MCV (80.0 - 94.0 FL) 91.1 MCH (27.0 - 31.0 PG) 29.7 MCHC (33.0 - 37.0 G/DL) 32.6 L RDW (11.5 - 14.5 %) 16.4 H Plt Count (130 - 400 /CUMM) 181 MPV (7.4 - 10.4 FL) 9.4 Gran % (42.2 - 75.2 %) 69.3 Lymphocytes % (20.5 - 51.1 %) 20.2 L Monocytes % (1.7 - 9.3 %) 9.4 H Eosinophils % (0 - 5 %) 0.8 Basophils % (0.0 - 2.0 %) 0.3 Absolute Granulocytes (1.4 - 6.5 /CUMM) 4.0 Absolute Lymphocytes (1.2 - 3.4 /CUMM) 1.2 Absolute Monocytes (0.10 - 0.60 /CUMM) 0.5 Absolute Eosinophils (0.0 - 0.7 /CUMM) 0 Absolute Basophils (0.0 - 0.2 /CUMM) 0 Serology Hepatitis A IgM Ab (NONREACTIVE) Pending Hep Bs Antigen (NONREACTIVE) Pending Hep B Core IgM Ab Conf (NONREACTIVE) Pending Hepatitis C Antibody (NONREACTIVE) Pending Toxicology Random Vancomycin (ug/ml) 14.1 11/11 11/10 11/10 0357 1850 1100 Chemistry Sodium (137 - 145 mmol/L) 144 Potassium (3.5 - 5.1 mmol/L) 3.4 L Chloride (98 - 107 mmol/L) 106 Carbon Dioxide (22 - 30 mmol/L) 23 Anion Gap (5 - 16) 15 BUN (9 - 20 mg/dL) 91 H Creatinine (0.7 - 1.2 mg/dL) 6.8 *H Estimated GFR (>60 ml/min) 8 L Glucose (65 - 99 mg/dL) 72 Calcium (8.4 - 10.2 mg/dL) 8.0 L Phosphorus (2.5 - 4.5 mg/dL) 7.4 H Magnesium (1.6 - 2.3 mg/dL) 1.8 Total Bilirubin (0.2 - 1.3 mg/dL) 0.3 AST (17 - 59 U/L) 34 ALT (21 - 72 U/L) 22 Troponin I (<0.11 ng/ml) 1.17 *H 0.69 *H Cancelled Albumin (3.5 - 5.0 g/dL) 2.5 L Hematology CBC w Diff NO MAN DIFF REQ WBC (4.8 - 10.8 /CUMM) 6.7 RBC (4.70 - 6.10 /CUMM) 3.00 L Hgb (14.0 - 18.0 G/DL) 9.0 L Hct (42 - 52 %) 27.3 L MCV (80.0 - 94.0 FL) 91.0 MCH (27.0 - 31.0 PG) 29.9 MCHC (33.0 - 37.0 G/DL) 32.8 L RDW (11.5 - 14.5 %) 15.9 H Plt Count (130 - 400 /CUMM) 168 MPV (7.4 - 10.4 FL) 9.6 Gran % (42.2 - 75.2 %) 72.3 Lymphocytes % (20.5 - 51.1 %) 15.9 L Monocytes % (1.7 - 9.3 %) 11.5 H Eosinophils % (0 - 5 %) 0.2 Basophils % (0.0 - 2.0 %) 0.1 Absolute Granulocytes (1.4 - 6.5 /CUMM) 4.8 Absolute Lymphocytes (1.2 - 3.4 /CUMM) 1.1 L Absolute Monocytes (0.10 - 0.60 /CUMM) 0.8 H Absolute Eosinophils (0.0 - 0.7 /CUMM) 0 Absolute Basophils (0.0 - 0.2 /CUMM) 0 11/10 11/10 0430 0100 Chemistry Sodium (137 - 145 mmol/L) 145 Potassium (3.5 - 5.1 mmol/L) 4.0 Chloride (98 - 107 mmol/L) 106 Carbon Dioxide (22 - 30 mmol/L) 18 L Anion Gap (5 - 16) 21 H BUN (9 - 20 mg/dL) 98 H Creatinine (0.7 - 1.2 mg/dL) 6.6 *H Estimated GFR (>60 ml/min) 9 L Glucose (65 - 99 mg/dL) 103 H Calcium (8.4 - 10.2 mg/dL) 8.2 L Phosphorus (2.5 - 4.5 mg/dL) 8.8 H Magnesium (1.6 - 2.3 mg/dL) 1.7 Total Bilirubin (0.2 - 1.3 mg/dL) 0.6 AST (17 - 59 U/L) 42 ALT (21 - 72 U/L) 23 Troponin I (<0.11 ng/ml) 0.59 *H Albumin (3.5 - 5.0 g/dL) 2.8 L Hematology CBC w Diff NO MAN DIFF REQ WBC (4.8 - 10.8 /CUMM) 9.5 RBC (4.70 - 6.10 /CUMM) 3.33 L Hgb (14.0 - 18.0 G/DL) 9.9 L Hct (42 - 52 %) 30.2 L MCV (80.0 - 94.0 FL) 90.6 MCH (27.0 - 31.0 PG) 29.6 MCHC (33.0 - 37.0 G/DL) 32.7 L RDW (11.5 - 14.5 %) 15.4 H Plt Count (130 - 400 /CUMM) 184 MPV (7.4 - 10.4 FL) 9.6 Gran % (42.2 - 75.2 %) 86.4 H Lymphocytes % (20.5 - 51.1 %) 6.2 L Monocytes % (1.7 - 9.3 %) 7.3 Eosinophils % (0 - 5 %) 0 Basophils % (0.0 - 2.0 %) 0.1 Absolute Granulocytes (1.4 - 6.5 /CUMM) 8.2 H Absolute Lymphocytes (1.2 - 3.4 /CUMM) 0.6 L Absolute Monocytes (0.10 - 0.60 /CUMM) 0.7 H Absolute Eosinophils (0.0 - 0.7 /CUMM) 0 Absolute Basophils (0.0 - 0.2 /CUMM) 0 Toxicology Random Vancomycin (ug/ml) 6.8 Urine Opiates Screen (>2000 NG/ML) < 100 Methadone Screen (>300 NG/ML) 56 Barbiturate Screen (>200 NG/ML) < 60 Ur Phencyclidine Scrn (>25 NG/ML) < 6.00 Amphetamines Screen (>1000 NG/ML) < 100 U Benzodiazepines Scrn (>200 NG/ML) < 85 Urine Cocaine Screen (>300 NG/ML) < 50 Urine Cannabis Screen (>50 NG/ML) < 5.00 Urines Urine Color (YEL,AMB,STR) YEL Urine Clarity (CLEAR) HAZY H Urine pH (5.0 - 8.0) 6.0 Ur Specific [place] (1.001 - 1.035) 1.025 Urine Protein (NEG,<30 MG/DL) >=300 H Urine Ketones (NEG) NEG Urine Nitrite (NEG) NEG Urine Bilirubin (NEG) NEG Urine Urobilinogen (0.1 - 1.0 EU/dl) 0.2 Ur Leukocyte Esterase (NEG) SMALL H Ur Microscopic SEDIMENT EXAMINED Urine RBC (0 - 5 /HPF) 1-3 Urine WBC (0 - 2 /HPF) > 75 H Ur Epithelial Cells (NONE,FEW) RARE Urine Bacteria (NEG/NONE) FEW H Urine Hemoglobin (NEG) MOD H Urine Glucose (N MG/DL) 100 H 11/09 1003 1728 Blood Gas pH (7.35 - 7.45 PH) 7.40 pCO2 (35 - 45 TORR) 31 L pO2 (80 - 100 TORR) 108 H HCO3 (21 - 28 MEQ/L) 18 L ABG O2 Sat (Measured) (>96.0 %) 97.0 P-50 (Temp Corrected) N Carboxyhemoglobin (1.5 - 5.0 %) 0.2 L O2 Concentration % 50 Temperature (97.0 - 100.0 FARH) 98.3 Respiration Rate (BPM) 18 O2 Delivery Method BIPAP Vent Mode ST Expiratory Pressure (CM H2O P) 6 Inspiratory Pressure (CM H2O P) 16 Chemistry Sodium (137 - 145 mmol/L) 141 Potassium (3.5 - 5.1 mmol/L) 2.9 *L Chloride (98 - 107 mmol/L) 104 Carbon Dioxide (22 - 30 mmol/L) 21 L Anion Gap (5 - 16) 16 BUN (9 - 20 mg/dL) 92 H Creatinine (0.7 - 1.2 mg/dL) 6.9 *H Estimated GFR (>60 ml/min) 8 L Glucose (65 - 99 mg/dL) 108 H Lactic Acid Cancelled Calcium (8.4 - 10.2 mg/dL) 7.9 L Phosphorus (2.5 - 4.5 mg/dL) 8.2 H Magnesium (1.6 - 2.3 mg/dL) 1.6 Total Bilirubin (0.2 - 1.3 mg/dL) 0.4 AST (17 - 59 U/L) 31 ALT (21 - 72 U/L) 24 Troponin I (<0.11 ng/ml) 0.82 *H Albumin (3.5 - 5.0 g/dL) 2.6 L Miscellaneous Phlebotomy Draw Site LEFT RADIAL 11/09 1430 Chemistry Sodium (137 - 145 mmol/L) 141 Potassium (3.5 - 5.1 mmol/L) 2.9 *L Chloride (98 - 107 mmol/L) 104 Carbon Dioxide (22 - 30 mmol/L) 19 L Anion Gap (5 - 16) 18 H BUN (9 - 20 mg/dL) 94 H Creatinine (0.7 - 1.2 mg/dL) 6.6 *H Estimated GFR (>60 ml/min) 9 L BUN/Creatinine Ratio (7 - 25 %) 14.2 Glucose (65 - 99 mg/dL) 106 H Hemoglobin A1c (4.2 - 5.8 %) 6.5 H Lactic Acid (0.7 - 2.1 mmol/L) 1.1 Calcium (8.4 - 10.2 mg/dL) 8.2 L Phosphorus (2.5 - 4.5 mg/dL) 7.9 H Magnesium (1.6 - 2.3 mg/dL) 1.6 Total Bilirubin (0.2 - 1.3 mg/dL) 0.6 AST (17 - 59 U/L) 28 ALT (21 - 72 U/L) 22 Alkaline Phosphatase (< 127 U/L) 67 Troponin I (<0.11 ng/ml) 0.27 *H [id number] Pept (<125 pg/mL) 40333 H Total Protein (6.3 - 8.2 g/dL) 6.0 L Albumin (3.5 - 5.0 g/dL) 2.9 L Globulin (1.9 - 4.2 gm/dL) 3.1 Albumin/Globulin Ratio (1.1 - 2.2 %) 0.9 L Hematology CBC w Diff NO MAN DIFF REQ WBC (4.8 - 10.8 /CUMM) 12.5 H RBC (4.70 - 6.10 /CUMM) 3.23 L Hgb (14.0 - 18.0 G/DL) 9.5 L Hct (42 - 52 %) 29.2 L MCV (80.0 - 94.0 FL) 90.5 MCH (27.0 - 31.0 PG) 29.5 MCHC (33.0 - 37.0 G/DL) 32.7 L RDW (11.5 - 14.5 %) 15.8 H Plt Count (130 - 400 /CUMM) 199 MPV (7.4 - 10.4 FL) 9.2 Gran % (42.2 - 75.2 %) 90.4 H Lymphocytes % (20.5 - 51.1 %) 3.0 L Monocytes % (1.7 - 9.3 %) 6.6 Eosinophils % (0 - 5 %) 0 Basophils % (0.0 - 2.0 %) 0 Absolute Granulocytes (1.4 - 6.5 /CUMM) 11.3 H Absolute Lymphocytes (1.2 - 3.4 /CUMM) 0.4 L Absolute Monocytes (0.10 - 0.60 /CUMM) 0.8 H Absolute Eosinophils (0.0 - 0.7 /CUMM) 0 Absolute Basophils (0.0 - 0.2 /CUMM) 0
--- NOTE | 2017-11-12 11:51 | PN- Infect Dx ---
Subjective Subjective: No fever; less SP abd discomfort; voiding; no feeling of incomplete voiding. Productive cough last evening. Review of Systems Comments: 12 points reviewed as noted, otherwise negative. Objective Last 24 Hrs of Vital Signs/I&O Vital Signs Date Time Temp Pulse Resp B/P B/P Pulse O2 O2 Flow FiO2 Mean Ox Delivery Rate 11/12 0834 58 138/64 11/12 0834 58 138/64 11/12 0800 94 Nasal 80% Cannula 11/12 08 98.4 58 22 170/84 94 Nasal 80% Cannula 11/12 0750 92 Nasal 80% Cannula 11/12 0423 66 100 11/12 0400 99 Nasal 80% Cannula 11/12 0310 54 94 11/12 0023 53 96 11/12 0000 97.8 56 20 160/80 95 BIPAP 80% 11/12 0000 95 BIPAP 80% 11/11 2257 92 91 11/11 2202 97.7 62 20 161/74 11/11 2000 95 Nasal 80% Cannula 11/11 1959 89 Nasal 80% Cannula 11/11 1641 88 Nasal 80% Cannula 11/11 1600 95 Nasal 80% Cannula 11/11 1600 99.4 56 22 142/72 94 Nasal 80% Cannula 11/11 1438 93 Nasal 80% Cannula 11/11 1200 92 Nasal 80% Cannula 11/11 1159 64 172/82 Intake & Output 11/12 1600 11/12 0800 11/12 0000 Intake Total 200 760 Output Total 700 400 Balance -500 360 Intake, IV 40 Intake, Oral 200 720 Number 2 2 Bowel Movements Output, Urine 700 400 Physical Exam Other Physical Findings: General Appearance: no apparent distress, alert, awake, elevated BMI Head: atraumatic, normal appearance Respiratory: chest non-tender. Scattered rhonchi b/l lung rodriguez. No chest tenderness on palpation. Cardiovascular: regular rate/rhythm, No M/R/G Gastrointestinal: normal bowel sounds, soft, no organomegaly, no tenderness on deep palpation SP area. Extremities: Dressing covering clean base heel ulcer on the R, clean, dry and intact. Cranial Nerves: Awake and alerrt; normal hearing, normal speech Results Last 24 Hours of Lab Results: Laboratory Tests 11/12 11/12 11/11 0450 0030 1757 Chemistry Sodium (137 - 145 mmol/L) 145 143 Potassium (3.5 - 5.1 mmol/L) 3.9 3.8 Chloride (98 - 107 mmol/L) 104 104 Carbon Dioxide (22 - 30 mmol/L) 26 23 Anion Gap (5 - 16) 15 17 H BUN (9 - 20 mg/dL) 91 H 93 H Creatinine (0.7 - 1.2 mg/dL) 6.7 *H 6.3 *H Estimated GFR (>60 ml/min) 8 L 9 L BUN/Creatinine Ratio (7 - 25 %) 14.8 Glucose (65 - 99 mg/dL) 76 Lactic Acid (0.7 - 2.1 mmol/L) 0.6 L Calcium (8.4 - 10.2 mg/dL) 8.2 L Phosphorus (2.5 - 4.5 mg/dL) 6.9 H Magnesium (1.6 - 2.3 mg/dL) 1.9 Total Bilirubin (0.2 - 1.3 mg/dL) 0.4 AST (17 - 59 U/L) 35 ALT (21 - 72 U/L) 22 Troponin I (<0.11 ng/ml) 0.94 *H 0.97 *H 1.22 *H Albumin (3.5 - 5.0 g/dL) 2.8 L Coagulation PT (9.4 - 12.5 SEC) 12.3 INR (0.90 - 1.17) 1.13 APTT (25 - 37 SEC) 42 H Hematology CBC w Diff NO MAN DIFF REQ WBC (4.8 - 10.8 /CUMM) 5.7 RBC (4.70 - 6.10 /CUMM) 3.21 L Hgb (14.0 - 18.0 G/DL) 9.5 L Hct (42 - 52 %) 29.2 L MCV (80.0 - 94.0 FL) 91.1 MCH (27.0 - 31.0 PG) 29.7 MCHC (33.0 - 37.0 G/DL) 32.6 L RDW (11.5 - 14.5 %) 16.4 H Plt Count (130 - 400 /CUMM) 181 MPV (7.4 - 10.4 FL) 9.4 Gran % (42.2 - 75.2 %) 69.3 Lymphocytes % (20.5 - 51.1 %) 20.2 L Monocytes % (1.7 - 9.3 %) 9.4 H Eosinophils % (0 - 5 %) 0.8 Basophils % (0.0 - 2.0 %) 0.3 Absolute Granulocytes (1.4 - 6.5 /CUMM) 4.0 Absolute Lymphocytes (1.2 - 3.4 /CUMM) 1.2 Absolute Monocytes (0.10 - 0.60 /CUMM) 0.5 Absolute Eosinophils (0.0 - 0.7 /CUMM) 0 Absolute Basophils (0.0 - 0.2 /CUMM) 0 Serology Hepatitis A IgM Ab (NONREACTIVE) NONREACTIVE Hep Bs Antigen (NONREACTIVE) NONREACTIVE Hep B Core IgM Ab Conf (NONREACTIVE) NONREACTIVE Hepatitis C Antibody (NONREACTIVE) NONREACTIVE Toxicology Random Vancomycin (ug/ml) 14.1 Last 24 Hours of [place] Results: SPEC #: [id number] HEYDI: 11/09/17 STATUS: COMP RECD: 11/09/17-[address]: Yoon CASEY,[facility] SOURCE: BLOOD ENTR: 11/09/17-[address] [facility] Inc[facility]: 1ST/VENOUS ORDERED: BLOOD CULTURE Procedure Result > BLOOD CULTURE REPORT Final 11/12/17 GRAM STAIN SUGGESTIVE OF: GRAM NEGATIVE RODS Called to/Readback by SURAJ AND CARLOS ENRIQUE AT 0400 LABSANTANA 11/10/17 by KAILEE 11/10/17 0701 CULTURE: 1. MORGANELLA MORGANII 2. PROTEUS MIRABILIS PLEASE SEE [id number] FOR PROTEUS SENSITIVITIES 1. MORGANELLA MORGANII RX AB ------ -- AMPICILLIN R CEFAZOLIN R AMOXICILLIN/CLAVULINIC ACID R AMPICILLIN/SULBACTAM R CEFOXITIN S CEFTAZIDIME S CEFTRIAXONE S CIPROFLOXACIN S GENTAMICIN S TRIMETHOPRIM/SULFAMETHOXAZOLE S Recent Imaging Studies: SERVICE DATE: 11/12/17 EXAM TYPE: RAD - XRY-PORTABLE CHEST XRAY EXAMINATION: XR PORTABLE CHEST CLINICAL INFORMATION: CHF. For followup. COMPARISON: Chest done on 11/11/2017 TECHNIQUE: Portable frontal view of the chest was obtained. FINDINGS: Significantly improved aeration is noted bilaterally (right greater than left). Residual airspace disease is still noted at the left lung base and left perihilar region. The cardiomediastinal silhouette is mildly enlarged. There is no radiographic evidence of any definite pleural effusion present. Postoperative changes of sternotomy are noted. The visualized upper abdomen is unremarkable. Overall, there is significant interval improvement noted. IMPRESSION: Significant interval improvement since prior study dated 11/11/2017 in the form of markedly improved aeration within the right hemithorax. Residual disease is still noted at the left [id number] lung field. DICTATED BY: Christiana Gonzalez MD DATE/TIME DICTATED:11/12/17810 BIOCHEMISTRY TECHNOLOGIST:AMINATA DATE/TIME TRANSCRIBED:11/12/17810 Assessment/Plan ID Impression: 80 year old male with PMH significant for insulin dependent DMII c/b neuropathy/ retinopathy, HFpEF, CKD stage IV/V (planned peritoneal dialysis), anemia of chronic dx, urethral strictures, CAD s/p CABG, HTN, KALE and h/o Kleb pna UTI admitted w/ sepsis on 11/10/17. Eval multilobar pneumonia UTI/GNR (p. mirabilis/Klebsiella) bacteremia Leukocytosis resolved. MRSA colonized RUTH/advanced CKD; with creatinine trending up Suggestion: 1. Deescalate abx to Ceftriaxone 1 gm daily starting today; obtain sputum cx; give vancomycin 500 mg iv x1 today; w/random vancomycin level on 11/14; if above 20 hold vancomycin. 2. Bladder scan q 8 h; if PVR >450 cc; Aranda cath to be placed by urology. 3. Consider CT A/P w/o contrast eval hydronephrosis; f/u urology recom. 4. F/u repeat BC results from today.
[2017-11-12 12:00] VITALS: BP 132/60
--- NOTE | 2017-11-12 12:05 | PN- Cardiology ---
Subjective Subjective: The patient continues to require high flow nasal cannula. Shortness of breath is improving. No chest pain. No palpitations. No diaphoresis. Blood pressure has improved on medicines. Objective Vital Signs and I&Os Vital Signs Date Time Temp Pulse Resp B/P B/P Pulse O2 O2 Flow FiO2 Mean Ox Delivery Rate 11/12 0834 58 138/64 11/12 0834 58 138/64 11/12 0800 94 Nasal 80% Cannula 11/12 0800 98.4 58 22 170/84 94 Nasal 80% Cannula 11/12 0750 92 Nasal 80% Cannula 11/12 0423 66 100 11/12 0400 99 Nasal 80% Cannula 11/12 0310 54 94 11/12 0023 53 96 11/12 0000 97.8 56 20 160/80 95 BIPAP 80% 11/12 0000 95 BIPAP 80% 11/11 2257 92 91 11/11 2202 97.7 62 20 161/74 11/11 2000 95 Nasal 80% Cannula 11/11 1959 89 Nasal 80% Cannula 11/11 1641 88 Nasal 80% Cannula 11/11 1600 95 Nasal 80% Cannula 11/11 1600 99.4 56 22 142/72 94 Nasal 80% Cannula 11/11 1438 93 Nasal 80% Cannula 11/11 1200 92 Nasal 80% Cannula 11/11 1159 64 172/82 Intake & Output 11/12 1600 11/12 0811/12 0000 11/11 1600 11/11 0800 11/11 0000 Intake Total 200 760 730 100 888 Output Total 231 722 6645 600 450 Balance -500 360 -895 -500 438 Intake, IV 40 130 408 Intake, Oral 200 720 600 100 480 Number 2 2 2 Bowel Movements Output, Urine 167 727 8748 600 450 Patient 290 lb Weight Physical Exam: General Appearance: well developed/nourished, alert, awake, oriented Head: normal HEENT: Normal Neck: supple, JVP normal, carotid upstrokes normal bilaterally, no masses or thyromegaly Respiratory: chest non-tender, clear to auscultation and percussion bilaterally Cardiovascular: regular rate/rhythm, normal S1, S2, 1-2/6 systolic murmur Abdomen: normal bowel sounds, soft, non-tender Extremities: normal inspection, 2+ edema Vascular: Pulses are 2+ and equal bilaterally Neurologic: Grossly normal/nonfocal Current Medications: Current Medications Sig/Jose Angel Start time Last Medication Dose Route Stop Time Status Admin Acetaminophen 1,000 MG .STK-MED ONE 11/11 1443 DC IV 11/11 1444 Acetaminophen 1,000 MG Q6P PRN 11/09 1800 AC 11/11 N/A 1 UNIT IV 1444 Acetaminophen 650 MG Q6P PRN 11/09 1645 AC PO Amlodipine Besylate 10 MG DAILY 11/11 0902 AC 11/12 PO 0834 Aspirin 81 MG DAILY 11/10 0900 AC 11/12 PO 0833 Atorvastatin Calcium 40 MG DAILY@1700 11/10 1700 AC 11/11 PO 1719 Ceftazidime 1,000 MG DAILY@1400 11/10 1400 AC 11/11 IV 1436 Furosemide 100 MG 7:30 AM, & 4:30 PM 11/11 07 AC 11/12 IV 0936 Heparin Sodium 5,000 UNIT Q8 11/09 2200 AC 11/12 (Porcine) SC 0642 Hydralazine HCl 75 MG TID 11/11 2100 AC 11/12 PO 0834 Hydralazine HCl 50 MG TID 11/10 1400 DC 11/11 PO 0916 Insulin Aspart 0 TIDAC 11/10 1200 AC 11/10 SC 1208 Insulin Detemir 4 UNITS BID 11/12 0900 AC SC Insulin Detemir 8 UNITS BID 11/11 0900 DC 11/11 SC 0917 Lidocaine 1 PAT DAILY@1900 11/10 1900 AC 11/11 EXT 1948 Magnesium Oxide 400 MG BID 11/09 2256 AC 11/12 PO 0834 Metoprolol Tartrate 75 MG BID 11/10 0900 AC 11/12 PO 0835 Sevelamer Carbonate 1,600 MG TIDAC 11/10 1700 AC 11/12 PO 0835 Sodium Bicarbonate 1,950 MG TID 11/09 2100 AC 11/12 PO 0834 Sodium Hypochlorite 1 MEI BID 11/09 2100 AC 11/12 TOP 0936 Results Last 48 Hrs of Labs/Mics: Laboratory Tests 11/12/17 0450: Anion Gap 15, Estimated GFR 8 L, Glucose 76, Lactic Acid 0.6 L, Calcium 8.2 L , Phosphorus 6.9 H, Magnesium 1.9, Total Bilirubin 0.4, AST 35, ALT 22, Troponin I 0.94 *H, Albumin 2.8 L, PT 12.3, INR 1.13, APTT 42 H, CBC w Diff NO MAN DIFF REQ, RBC 3.21 L, MCV 91.1, MCH 29.7, MCHC 32.6 L, RDW 16.4 H, MPV 9.4, Gran % 69.3, Lymphocytes % 20.2 L, Monocytes % 9.4 H, Eosinophils % 0.8, Basophils % 0.3, Absolute Granulocytes 4.0, Absolute Lymphocytes 1.2, Absolute Monocytes 0.5, Absolute Eosinophils 0, Absolute Basophils 0, Hepatitis A IgM Ab NONREACTIVE, Hep Bs Antigen NONREACTIVE, Hep B Core IgM Ab Conf NONREACTIVE, Hepatitis C Antibody NONREACTIVE, Random Vancomycin 14.1 11/12/17 0030: Troponin I 0.97 *H 11/11/17 1757: Anion Gap 17 H, Estimated GFR 9 L, BUN/Creatinine Ratio 14.8, Troponin I 1.22 *H 11/11/17 0357: Anion Gap 15, Estimated GFR 8 L, Glucose 72, Calcium 8.0 L, Phosphorus 7.4 H, Magnesium 1.8, Total Bilirubin 0.3, AST 34, ALT 22, Troponin I 1.17 *H, Albumin 2.5 L, CBC w Diff NO MAN DIFF REQ, RBC 3.00 L, MCV 91.0, MCH 29.9, MCHC 32.8 L, RDW 15.9 H, MPV 9.6, Gran % 72.3, Lymphocytes % 15.9 L, Monocytes % 11.5 H , Eosinophils % 0.2, Basophils % 0.1, Absolute Granulocytes 4.8, Absolute Lymphocytes 1.1 L, Absolute Monocytes 0.8 H, Absolute Eosinophils 0, Absolute Basophils 0 11/10/17 1850: Troponin I 0.69 *H Recent Imaging Studies: Chest x-ray: Significant interval improvement since prior study dated 11/11/2017 in the form of markedly improved aeration within the right hemithorax. Residual disease is still noted at the left [id number] lung field. Assessment/Plan Assessment/Plan Assessment: 1. CAD, status post CABG 2. Hypertension, now controlled 3. Diabetes mellitus 4. KALE 5. Acute on chronic HFpEF 6. Sepsis 7. Mild troponin elevation, likely secondary to demand ischemia Plan: * Continue IV Lasix * Agree with metolazone 2.5 mg p.o. 1 today as recommended by nephrology * Monitor input and output * Check basic metabolic profile daily * Continue current hypertension medication Continue telemetry? Yes
[2017-11-12 16:00] VITALS: BP 140/58
[2017-11-12 23:00] VITALS: BP 142/72
[2017-11-13 05:04] LABS: ABSOLUTE BASOPHIL COUNT 0 /CUMM (0.0-0.2); ABSOLUTE EOSINOPHIL COUNT 0.1 /CUMM (0.0-0.7); ABSOLUTE GRANULOCYTE CT 4.3 /CUMM (1.4-6.5); ABSOLUTE LYMPH COUNT 1.4 /CUMM (1.2-3.4); ABSOLUTE MONOCYTE COUNT 0.7 /CUMM (0.10-0.60); BASOPHIL % 0.4 % (0.0-2.0); EOSINOPHIL % 1.4 % (0-5); GRANULOCYTE % 65.8 % (42.2-75.2); HEMATOCRIT 31.3 % (42-52); MEAN CORPUSCULAR HGB 29.6 PG (27.0-31.0); MEAN CORPUSCULAR HGB CONC 32.2 G/DL (33.0-37.0); MEAN CORPUSCULAR VOLUME 91.9 FL (80.0-94.0); MEAN PLATELET VOLUME 9.8 FL (7.4-10.4); PLATELET COUNT 192 /CUMM (130-400); RED BLOOD CELL CT 3.41 /CUMM (4.70-6.10); WHITE BLOOD CELL COUNT 6.5 /CUMM (4.8-10.8)
--- NOTE | 2017-11-13 07:32 | PN- Resident CRCU ---
Timoteo CASEY,[facility] 11/13/17 0732: Subjective HPI/CRCU Issues: Sepsis with gram negative bacteremia Acute hypoxemic respiratory failure in setting of volume overload Elevated troponin CKD Stage V DM HTN 24 Hour Events: Seen and examined. Resting comfortably. Remains on high flow FiO2 decreased to 60%. Remained afebrile overnight with pansensitive Proteus gram-negative bacteremia currently on IV ceftriaxone. Being diuresed with IV Lasix and been maintained on 1 L fluid restriction. Objective Vital Signs & I&O Last 8 Hrs of Vitals and I&O: Laboratory Tests 11/13 0420 Chemistry Sodium (137 - 145 mmol/L) 147 H Potassium (3.5 - 5.1 mmol/L) 3.8 Chloride (98 - 107 mmol/L) 106 Carbon Dioxide (22 - 30 mmol/L) 25 Anion Gap (5 - 16) 17 H BUN (9 - 20 mg/dL) 93 H Creatinine (0.7 - 1.2 mg/dL) 6.2 *H Estimated GFR (>60 ml/min) 9 L Glucose (65 - 99 mg/dL) 87 Calcium (8.4 - 10.2 mg/dL) 8.2 L Phosphorus (2.5 - 4.5 mg/dL) 6.7 H Magnesium (1.6 - 2.3 mg/dL) 2.0 Total Bilirubin (0.2 - 1.3 mg/dL) 0.4 AST (17 - 59 U/L) 29 ALT (21 - 72 U/L) 19 L Albumin (3.5 - 5.0 g/dL) 2.7 L Hematology CBC w Diff NO MAN DIFF REQ WBC (4.8 - 10.8 /CUMM) 6.5 RBC (4.70 - 6.10 /CUMM) 3.41 L Hgb (14.0 - 18.0 G/DL) 10.1 L Hct (42 - 52 %) 31.3 L MCV (80.0 - 94.0 FL) 91.9 MCH (27.0 - 31.0 PG) 29.6 MCHC (33.0 - 37.0 G/DL) 32.2 L RDW (11.5 - 14.5 %) 16.0 H Plt Count (130 - 400 /CUMM) 192 MPV (7.4 - 10.4 FL) 9.8 Gran % (42.2 - 75.2 %) 65.8 Lymphocytes % (20.5 - 51.1 %) 21.6 Monocytes % (1.7 - 9.3 %) 10.8 H Eosinophils % (0 - 5 %) 1.4 Basophils % (0.0 - 2.0 %) 0.4 Absolute Granulocytes (1.4 - 6.5 /CUMM) 4.3 Absolute Lymphocytes (1.2 - 3.4 /CUMM) 1.4 Absolute Monocytes (0.10 - 0.60 /CUMM) 0.7 H Absolute Eosinophils (0.0 - 0.7 /CUMM) 0.1 Absolute Basophils (0.0 - 0.2 /CUMM) 0 Vital Signs Date Time Temp Pulse Resp B/P B/P Pulse O2 O2 Flow FiO2 Mean Ox Delivery Rate 11/13 1504 55 130/78 11/13 1418 Nasal 55% Cannula 11/13 0908 64 150/69 11/13 0907 64 150/69 11/13 0900 95 Nasal 60% Cannula 11/13 0400 92 Nasal 60% Cannula 11/13 0307 57 97 11/13 0035 49 96 11/13 0000 99 BIPAP 80% 11/12 2320 59 97 11/12 2300 97.7 56 36 142/72 100 BIPAP 80% 11/12 2048 60 159/68 11/12 2000 91 Nasal 70% Cannula 11/12 1705 97.6 11/12 1607 99.4 11/12 1600 95 Nasal 80% Cannula 11/12 1600 98.1 56 20 140/58 65 Nasal 80% Cannula Intake & Output 11/13 1600 11/13 0800 11/13 0000 Intake Total 240 360 Output Total 675 200 Balance -435 160 Intake, Oral 240 360 Number 2 1 Bowel Movements Output, Urine 675 200 Exam General Appearance: no apparent distress, alert, awake Neck: normal inspection Respiratory: normal breath sounds, no respiratory distress, lungs clear Cardiovascular: regular rate/rhythm Gastrointestinal: normal bowel sounds, soft Extremities: no edema Current Medications: Current Medications Sig/Jose Angel Start time Last Medication Dose Route Stop Time Status Admin Acetaminophen 1,000 MG .STK-MED ONE 11/12 1559 DC IV 11/12 1600 Acetaminophen 1,000 MG Q6P PRN 11/09 1800 AC 11/12 N/A 1 UNIT IV 1607 Acetaminophen 650 MG Q6P PRN 11/09 1645 AC PO Amlodipine Besylate 10 MG DAILY 11/11 0902 AC 11/13 PO 0907 Aspirin 81 MG DAILY 11/10 0900 AC 11/13 PO 0907 Atorvastatin Calcium 40 MG DAILY@1700 11/10 1700 AC 11/12 PO 1606 Ceftriaxone Sodium 1,000 MG DAILY 11/12 1215 AC 11/13 IV 0907 Furosemide 100 MG 7:30 AM, & 4:30 PM 11/11 0730 AC 11/13 IV 0637 Heparin Sodium 5,000 UNIT Q8 11/09 2200 AC 11/13 (Porcine) SC 1504 Hydralazine HCl 75 MG TID 11/11 2100 AC 11/13 PO 1504 Insulin Aspart 0 TIDAC 11/10 1200 AC 11/12 SC 1648 Insulin Detemir 4 UNITS BID 11/12 0900 AC 11/12 SC 2050 Lidocaine 1 PAT DAILY@1900 11/10 1900 AC 11/12 EXT 2048 Magnesium Oxide 400 MG BID 11/09 2256 AC 11/13 PO 0907 Metoprolol Tartrate 75 MG BID 11/10 0900 AC 11/13 PO 0907 Sevelamer Carbonate 1,600 MG TIDAC 11/10 1700 AC 11/13 PO 1224 Sodium Bicarbonate 1,950 MG TID 11/09 2100 AC 11/13 PO 1503 Sodium Hypochlorite 1 MIE BID 11/09 2100 AC 11/13 TOP 0908 Impression/Plan Impression/Problem List Impression: The patient is 80 year old male with PMH significant for insulin dependent DMII c/b neuropathy/retinopathy, HFpEF, CKD stage IV/V on aranesp, procrit, and sevalamer, secondary to diabetic and obstructive nephropathy, h/o urethral strictures requiring intermittent straight catheterization, CAD s/p CABG (2005), HTN, and KALE on CPAP presented with fever and acute hypoxemic respiratory failure probable sepsis of urological origin, demand supply mismatch in the setting of infection, and hypoxemia attributed to volume overload, CKD, and HFpEF. Respiratory #Acute hypoxemic respiratory failure setting of volume overload Patient presented with increased work of breathing, tachypnea and hypoxemia. It was most likely secondary to volume overload in setting of heart failure with preserved ejection fraction and CKD. He was initially started on BiPAP later transitioned to high flow and IV diuresis with Lasix. Chest x-ray showed interval improvement with aggressive diuresis. -Continue aggressive diuresis with IV Lasix -Currently on high flow nasal oxygen which has been decreased to 60%. Will try to decrease FiO2 requirements with continuing diuresis. -TRC, Nebulized albuterol, pulmonary toilet, chest physiotherapy -We will consider chest CT when clinical condition is improved Infection #Sepsis of urological origin Patient has gram-negative bacteremia with cultures being positive for Morganella morganii and proteus. Pyuria on UA and urine culture showed polymicrobial growth. Sepsis most likely urological in the origin with history of urethral strictures and intermittent self straight catheterization Antibiotics were narrowed from ceftazidime to ceftriaxone yesterday -Continue to monitor fever and WBC curve, patient remained afebrile overnight without WBC count -Continue ceftriaxone, patient required total of 14 days of treatment in setting of complicated UTI and bacteremia -Tylenol for fever as needed -Repeat blood cultures show no growth so far -ID recommendations appreciated -No need to repeat imaging patient had atrophic kidneys on CAT scan in September -Intraoperative Aranda placement given the history of obstructive uropathy and urethral strictures and inaccurate ins and outs with aggressive IV diuresis was initially pursued however deferred at this time because of severe hypoxic respiratory failure. -We will follow up with urology about consideration to cystoscopy inpatient versus outpatient #MRSA nares positive vancomycin random level was 14, patient received vancomycin 500mg yesterday Cardiology #Elevated troponins in setting of demand supply mismatch Patient has history of CAD status post CABG in 2005. Troponins were elevated with nonspecific EKG changes. Trended down to 0.94 from 1.17. Most likely secondary to sepsis and volume overload with component of CKD -Continue aspirin, atorvastatin, and metoprolol -Appreciate cardiology recommendations #Acute on chronic HFpEF Echo 09/2017 LVEF >60%, RVSP 52mmHg, mild valvular disease -Continue diuresis with IV Lasix 100 mg twice daily -Monitor his ins and outs but it is difficult to get correct measurement because patient is incontinent at baseline. -Daily weights -Oxygen supplementation to maintain oxygen saturation above 92% currently patient is on FiO2. Hopefully his requirements will decrease with aggressive diuresis -Monitor electrolytes in setting of diuresis #Hypertension Systolic blood pressure 130-160s -Continue home doses of metoprolol 75mg po bid, norvasc 10mg, hydralazine 50mg po tid -Currently on lasix 100mg iv bid Hematology #Anemia of chronic disease in setting of CKD -H/H stable Metabolic #DM Hemoglobin A1C 6.5, blood sugar ranging today 80-140 -Accuchecks TIDAC/HS, -Levemir reduced to 4 units bid yesterday -Novolog insulin sliding scale Alimantary Consistent carbohydrate to diet with 1 L fluid restriction Nephrology CKD stage V due to diabetic nephropathy Creatinine 5.0 and BUN 50s on prior admission, BUN 91 and creatinine 6.8 on presentation. He has atrophic kidneys on prior CT. Follows up for Dr. Lizeth Pradhan's -Continue phosphate binders and oral bicarbonate, calcium and procrit held for now -Lasix 100mg IV BID -Fluid restriction 1000ml daily -Monitor BMP -there is no emergent indication for dialysis at this point time, ultimate plan is for peritoneal dialysis. Nephrology is following and appreciate their recommendations DVT prophylaxis with subcutaneous heparin and alps Full code Problem List: 1. Acute hypoxemic respiratory failure 2. Diabetes Pain Ratin Tomorrow's Labs & Rationales: cbc icu bundle cxr Plan DVT/Prophylaxis: mechanical, pharmacological Glen Mathur MD 11/13/17 1238: Attending MD Review Statement Attending Sign Off Attending Cosign Statement: I have: examined this patient, reviewed [facility] EMR data, personally reviewd images, discussd w/resident/PA[employer], discussed mgmt plan w/shailesh, discussed mgmt plan w/CM, discussed mgmt plan w/pt, agreed w/resident/PA/[employer], amended to note. Other Findings: Impression 62 year old man * sepsis - likely urinary source - proteus & morganella bacteremia - MRSA surveillance * acute hypoxemic respiratory failure secondary to volume overload * hx of b/l pleural effusions * CKD Plan Respiratory -off bipap, continue high flow and titrate fio2 to achieve spo2 goal >88% -continue diuresis -improving imaging ID -ID consultation appreciated -cont abx - Ceftriaxone -f/u all cx CVS -cardiology appreciated -BP control Heme -monitor cbc, platelets Metabolic -nephrology appreciated -ins/outs -diuresis Alimentary -diet Neuro -no acute issues DVT prophylaxis at all times TTS 35 min Full Code will f/u with Urology within 24 hrs to discuss further need of cystoscopy DG to telemetry
[2017-11-13 08:00] VITALS: BP 140/70
--- NOTE | 2017-11-13 09:57 | PN- Cardiology ---
Objective Vital Signs and I&Os Vital Signs Date Time Temp Pulse Resp B/P B/P Pulse O2 O2 Flow FiO2 Mean Ox Delivery Rate 11/13 0908 64 150/69 11/13 0907 64 150/69 11/13 0400 92 Nasal 60% Cannula 11/13 0307 57 97 11/13 0035 49 96 11/13 0000 99 BIPAP 80% 11/12 2320 59 97 11/12 2300 97.7 56 36 142/72 100 BIPAP 80% 11/12 2048 60 159/68 11/12 2000 91 Nasal 70% Cannula 11/12 1705 97.6 11/12 1607 99.4 11/12 1600 95 Nasal 80% Cannula 11/12 1600 98.1 56 20 140/58 65 Nasal 80% Cannula 11/12 1431 58 138/63 11/12 1200 93 Nasal 80% Cannula 11/12 1200 98.6 58 18 132/60 93 Nasal 80% Cannula Intake & Output 11/13 1600 11/13 0800 11/13 0000 11/12 1600 11/12 0800 11/12 0000 Intake Total 240 360 710 200 760 Output Total 675 200 600 700 400 Balance -435 160 110 -500 360 Intake, IV 290 40 Intake, Oral 240 360 420 200 720 Number 2 1 4 2 2 Bowel Movements Output, Urine 675 200 600 700 400 Current Medications: Current Medications Sig/Jose Angel Start time Last Medication Dose Route Stop Time Status Admin Acetaminophen 1,000 MG .STK-MED ONE 11/12 1559 DC IV 11/12 1600 Acetaminophen 1,000 MG Q6P PRN 11/09 1800 AC 11/12 N/A 1 UNIT IV 1607 Acetaminophen 650 MG Q6P PRN 11/09 1645 AC PO Amlodipine Besylate 10 MG DAILY 11/11 0902 AC 11/13 PO 0907 Aspirin 81 MG DAILY 11/10 0900 AC 11/13 PO 0907 Atorvastatin Calcium 40 MG DAILY@1700 11/10 1700 AC 11/12 PO 1606 Ceftazidime 1,000 MG DAILY@1400 11/10 1400 DC 11/11 IV 1436 Ceftriaxone Sodium 1,000 MG DAILY 11/12 1215 AC 11/13 IV 0907 Furosemide 100 MG 7:30 AM, & 4:30 PM 11/11 0730 AC 11/13 IV 0637 Heparin Sodium 5,000 UNIT Q8 11/09 2200 AC 11/13 (Porcine) SC 0637 Hydralazine HCl 75 MG TID 11/11 2100 AC 11/13 PO 0908 Insulin Aspart 0 TIDAC 11/10 1200 AC 11/12 SC 1648 Insulin Detemir 4 UNITS BID 11/12 0900 AC 11/12 SC 2050 Lidocaine 1 PAT DAILY@1900 11/10 1900 AC 11/12 EXT 2048 Magnesium Oxide 400 MG BID 11/09 2256 AC 11/13 PO 0907 Metolazone 2.5 MG ONCE ONE 11/12 1215 DC 11/12 PO 11/12 1216 1430 Metoprolol Tartrate 75 MG BID 11/10 0900 AC 11/13 PO 0907 Sevelamer Carbonate 1,600 MG TIDAC 11/10 1700 AC 11/13 PO 0907 Sodium Bicarbonate 1,950 MG TID 11/09 2100 AC 11/13 PO 0907 Sodium Hypochlorite 1 MEI BID 11/09 2100 AC 11/13 TOP 0908 Vancomycin HCl 500 MG ONCE ONE 11/12 1230 DC 11/12 Sodium Chloride 250 ML IV 11/12 1329 1430 Results Last 48 Hrs of Labs/Mics: Laboratory Tests 11/13/17 0420: Anion Gap 17 H, Estimated GFR 9 L, Glucose 87, Calcium 8.2 L, Phosphorus 6.7 H, Magnesium 2.0, Total Bilirubin 0.4, AST 29, ALT 19 L, Albumin 2.7 L, CBC w Diff NO MAN DIFF REQ, RBC 3.41 L, MCV 91.9, MCH 29.6, MCHC 32.2 L, RDW 16.0 H , MPV 9.8, Gran % 65.8, Lymphocytes % 21.6, Monocytes % 10.8 H, Eosinophils % 1.4, Basophils % 0.4, Absolute Granulocytes 4.3, Absolute Lymphocytes 1.4, Absolute Monocytes 0.7 H, Absolute Eosinophils 0.1, Absolute Basophils 0 11/12/17 0450: Anion Gap 15, Estimated GFR 8 L, Glucose 76, Lactic Acid 0.6 L, Calcium 8.2 L , Phosphorus 6.9 H, Magnesium 1.9, Total Bilirubin 0.4, AST 35, ALT 22, Troponin I 0.94 *H, Albumin 2.8 L, PT 12.3, INR 1.13, APTT 42 H, CBC w Diff NO MAN DIFF REQ, RBC 3.21 L, MCV 91.1, MCH 29.7, MCHC 32.6 L, RDW 16.4 H, MPV 9.4, Gran % 69.3, Lymphocytes % 20.2 L, Monocytes % 9.4 H, Eosinophils % 0.8, Basophils % 0.3, Absolute Granulocytes 4.0, Absolute Lymphocytes 1.2, Absolute Monocytes 0.5, Absolute Eosinophils 0, Absolute Basophils 0, Hepatitis A IgM Ab NONREACTIVE, Hep Bs Antigen NONREACTIVE, Hep B Core IgM Ab Conf NONREACTIVE, Hepatitis C Antibody NONREACTIVE, Random Vancomycin 14.1 11/12/17 0030: Troponin I 0.97 *H 11/11/17 1757: Anion Gap 17 H, Estimated GFR 9 L, BUN/Creatinine Ratio 14.8, Troponin I 1.22 *H Assessment/Plan Assessment/Plan Assessment: 1. CAD, status post CABG 2. Hypertension, now controlled 3. Diabetes mellitus 4. KALE 5. Acute on chronic HFpEF 6. Sepsis 7. Mild troponin elevation, likely secondary to demand ischemia Recommendations: -Continue diuretic regimen as per Nephrology -Keep on leaf binner for now -Followup labs pending Continue telemetry? Yes
--- NOTE | 2017-11-13 12:01 | PN- Infect Dx ---
Subjective Subjective: Afebrile without complaints Objective Last 24 Hrs of Vital Signs/I&O Vital Signs Date Time Temp Pulse Resp B/P B/P Pulse O2 O2 Flow FiO2 Mean Ox Delivery Rate 11/13 0908 64 150/69 11/13 09 64 150/69 11/13 0900 95 Nasal 60% Cannula 11/13 0400 92 Nasal 60% Cannula 11/13 0307 57 97 11/13 0035 49 96 11/13 0000 99 BIPAP 80% 11/12 2320 59 97 11/12 2300 97.7 56 36 142/72 100 BIPAP 80% 11/12 2048 60 159/68 11/12 2000 91 Nasal 70% Cannula 11/12 1705 97.6 11/12 1607 99.4 11/12 1600 95 Nasal 80% Cannula 11/12 1600 98.1 56 20 140/58 65 Nasal 80% Cannula 11/12 1431 58 138/63 11/12 1200 93 Nasal 80% Cannula 11/12 1200 98.6 58 18 132/60 93 Nasal 80% Cannula Intake & Output 11/13 1600 11/13 0811/13 0000 Intake Total 240 360 Output Total 675 200 Balance -435 160 Intake, Oral 240 360 Number 2 1 Bowel Movements Output, Urine 675 200 Physical Exam Other Physical Findings: He is awake and alert in no acute distress Lungs are clear Heart regular rhythm with no murmur Abdomen is obese, mildly distended, tender on palpation of the lower abdomen, with positive bowel sounds Back no CVA tenderness Extremities no cyanosis, clubbing or edema Results Last 24 Hours of Lab Results: Laboratory Tests 11/13 0420 Chemistry Sodium (137 - 145 mmol/L) 147 H Potassium (3.5 - 5.1 mmol/L) 3.8 Chloride (98 - 107 mmol/L) 106 Carbon Dioxide (22 - 30 mmol/L) 25 Anion Gap (5 - 16) 17 H BUN (9 - 20 mg/dL) 93 H Creatinine (0.7 - 1.2 mg/dL) 6.2 *H Estimated GFR (>60 ml/min) 9 L Glucose (65 - 99 mg/dL) 87 Calcium (8.4 - 10.2 mg/dL) 8.2 L Phosphorus (2.5 - 4.5 mg/dL) 6.7 H Magnesium (1.6 - 2.3 mg/dL) 2.0 Total Bilirubin (0.2 - 1.3 mg/dL) 0.4 AST (17 - 59 U/L) 29 ALT (21 - 72 U/L) 19 L Albumin (3.5 - 5.0 g/dL) 2.7 L Hematology CBC w Diff NO MAN DIFF REQ WBC (4.8 - 10.8 /CUMM) 6.5 RBC (4.70 - 6.10 /CUMM) 3.41 L Hgb (14.0 - 18.0 G/DL) 10.1 L Hct (42 - 52 %) 31.3 L MCV (80.0 - 94.0 FL) 91.9 MCH (27.0 - 31.0 PG) 29.6 MCHC (33.0 - 37.0 G/DL) 32.2 L RDW (11.5 - 14.5 %) 16.0 H Plt Count (130 - 400 /CUMM) 192 MPV (7.4 - 10.4 FL) 9.8 Gran % (42.2 - 75.2 %) 65.8 Lymphocytes % (20.5 - 51.1 %) 21.6 Monocytes % (1.7 - 9.3 %) 10.8 H Eosinophils % (0 - 5 %) 1.4 Basophils % (0.0 - 2.0 %) 0.4 Absolute Granulocytes (1.4 - 6.5 /CUMM) 4.3 Absolute Lymphocytes (1.2 - 3.4 /CUMM) 1.4 Absolute Monocytes (0.10 - 0.60 /CUMM) 0.7 H Absolute Eosinophils (0.0 - 0.7 /CUMM) 0.1 Absolute Basophils (0.0 - 0.2 /CUMM) 0 Last 24 Hours of [place] Results: Blood culture x1 November 12 negative Assessment/Plan ID Impression: Stable, with temperatures and white blood cell count normal, on Ceftriaxone, Day 4 of treatment for gram-negative sepsis, with Proteus and Morganella isolated from the blood cultures, presumably of urologic origin, given his history of urethral strictures and intermittent self straight catheterization. He has apparently been evaluated by Urology, though there is no documentation regarding this, with plans for a possible cystoscopy on this admission. He has not had any imaging on this admission but a recent CT of the abdomen and pelvis revealed atrophic kidneys, with no hydronephrosis or obstruction. Suggestion: 1. Urology follow-up 2. Continue Ceftriaxone
[2017-11-13 16:00] VITALS: BP 110/52
[2017-11-13 17:00] VITALS: BP 154/70
--- NOTE | 2017-11-13 21:01 | PN- Nephrology ---
Assessment/Plan Nephrology Assessment: 1. CKD V 2/2 DM with renal fx at or near baseline 2. UTI with polymicrbial bacteremia 3. Volume overload 4. Hypernatremia 5. Hyperphosphatemia Suggestion: 1. Continue current abx, diuretic and phos binder rx 2. Encourage po fluids 3. Consider repeat CT abd/pelvis (last study on September 23) Subjective Subjective: Complaining of abd discomfort. Remains afebrile with nl WBC. Creat down to 6.2. Na up to 147. Hgb stable. Good urine output, although no sig change in wt. Objective Vital Signs and I&Os Vital Signs Date Time Temp Pulse Resp B/P B/P Pulse O2 O2 Flow FiO2 Mean Ox Delivery Rate 11/13 1941 90 Nasal 60% Cannula 11/13 1700 59 154/70 11/13 1630 92 Nasal 60% Cannula 11/13 1600 98.1 77 18 110/52 97 Nasal 60% Cannula 11/13 1504 55 130/78 11/13 1418 Nasal 55% Cannula 11/13 1200 95 Nasal 60% Cannula 11/13 0908 64 150/69 11/13 0907 64 150/69 11/13 0900 95 Nasal 60% Cannula 11/13 0800 96 Nasal 60% Cannula 11/13 0800 97.9 56 22 140/70 96 Nasal 60% Cannula 11/13 0400 92 Nasal 60% Cannula 11/13 0307 57 97 11/13 0035 49 96 08 0000 99 BIPAP 80% 11/12 2320 59 97 11/12 2300 97.7 56 36 142/72 100 BIPAP 80% Intake & Output 11/13 1600 11/13 0400 11/12 1600 11/12 0400 11/11 1600 11/11 0400 Intake Total 740 360 910 760 830 888 Output Total 1578 807 3709 400 2225 450 Balance -1085 160 -390 360 -1395 438 Intake, IV 20 290 40 130 408 Intake, Oral 720 360 620 720 700 480 Number 4 1 6 2 2 Bowel Movements Output, Urine 0533 342 1907 400 2225 450 Patient 290 lb Weight Physical Exam: General: Well-developed, WM in NAD Skin: No rash or jaundice HEENT: Conjunctivae pink, sclerae anicteric, mucous membranes dry Neck: Without masses or thyromegaly, no supraclavicular or cervical adenopathy Chest: Clear anterolaterally Heart: Regular rate and rhythm without S3 or rub Abdomen: Soft with mild suprapubic tenderness; no masses or organomegally Extremities: Without cyanosis; +edema Neuro: Cognitively intact, no focal findings, no asterixis or myoclonus Results Pertinent Lab Results: Laboratory Tests 11/13 11/12 0420 0450 Chemistry Sodium (137 - 145 mmol/L) 147 H 145 Potassium (3.5 - 5.1 mmol/L) 3.8 3.9 Chloride (98 - 107 mmol/L) 106 104 Carbon Dioxide (22 - 30 mmol/L) 25 26 Anion Gap (5 - 16) 17 H 15 BUN (9 - 20 mg/dL) 93 H 91 H Creatinine (0.7 - 1.2 mg/dL) 6.2 *H 6.7 *H Estimated GFR (>60 ml/min) 9 L 8 L Glucose (65 - 99 mg/dL) 87 76 Lactic Acid (0.7 - 2.1 mmol/L) 0.6 L Calcium (8.4 - 10.2 mg/dL) 8.2 L 8.2 L Phosphorus (2.5 - 4.5 mg/dL) 6.7 H 6.9 H Magnesium (1.6 - 2.3 mg/dL) 2.0 1.9 Total Bilirubin (0.2 - 1.3 mg/dL) 0.4 0.4 AST (17 - 59 U/L) 29 35 ALT (21 - 72 U/L) 19 L 22 Troponin I (<0.11 ng/ml) 0.94 *H Albumin (3.5 - 5.0 g/dL) 2.7 L 2.8 L Coagulation PT (9.4 - 12.5 SEC) 12.3 INR (0.90 - 1.17) 1.13 APTT (25 - 37 SEC) 42 H Hematology CBC w Diff NO MAN DIFF REQ NO MAN DIFF REQ WBC (4.8 - 10.8 /CUMM) 6.5 5.7 RBC (4.70 - 6.10 /CUMM) 3.41 L 3.21 L Hgb (14.0 - 18.0 G/DL) 10.1 L 9.5 L Hct (42 - 52 %) 31.3 L 29.2 L MCV (80.0 - 94.0 FL) 91.9 91.1 MCH (27.0 - 31.0 PG) 29.6 29.7 MCHC (33.0 - 37.0 G/DL) 32.2 L 32.6 L RDW (11.5 - 14.5 %) 16.0 H 16.4 H Plt Count (130 - 400 /CUMM) 192 181 MPV (7.4 - 10.4 FL) 9.8 9.4 Gran % (42.2 - 75.2 %) 65.8 69.3 Lymphocytes % (20.5 - 51.1 %) 21.6 20.2 L Monocytes % (1.7 - 9.3 %) 10.8 H 9.4 H Eosinophils % (0 - 5 %) 1.4 0.8 Basophils % (0.0 - 2.0 %) 0.4 0.3 Absolute Granulocytes (1.4 - 6.5 /CUMM) 4.3 4.0 Absolute Lymphocytes (1.2 - 3.4 /CUMM) 1.4 1.2 Absolute Monocytes (0.10 - 0.60 /CUMM) 0.7 H 0.5 Absolute Eosinophils (0.0 - 0.7 /CUMM) 0.1 0 Absolute Basophils (0.0 - 0.2 /CUMM) 0 0 Serology Hepatitis A IgM Ab (NONREACTIVE) NONREACTIVE Hep Bs Antigen (NONREACTIVE) NONREACTIVE Hep B Core IgM Ab Conf (NONREACTIVE) NONREACTIVE Hepatitis C Antibody (NONREACTIVE) NONREACTIVE Toxicology Random Vancomycin (ug/ml) 14.1 11/12 11/11 11/11 0030 1757 0357 Chemistry Sodium (137 - 145 mmol/L) 143 144 Potassium (3.5 - 5.1 mmol/L) 3.8 3.4 L Chloride (98 - 107 mmol/L) 104 106 Carbon Dioxide (22 - 30 mmol/L) 23 23 Anion Gap (5 - 16) 17 H 15 BUN (9 - 20 mg/dL) 93 H 91 H Creatinine (0.7 - 1.2 mg/dL) 6.3 *H 6.8 *H Estimated GFR (>60 ml/min) 9 L 8 L BUN/Creatinine Ratio (7 - 25 %) 14.8 Glucose (65 - 99 mg/dL) 72 Calcium (8.4 - 10.2 mg/dL) 8.0 L Phosphorus (2.5 - 4.5 mg/dL) 7.4 H Magnesium (1.6 - 2.3 mg/dL) 1.8 Total Bilirubin (0.2 - 1.3 mg/dL) 0.3 AST (17 - 59 U/L) 34 ALT (21 - 72 U/L) 22 Troponin I (<0.11 ng/ml) 0.97 *H 1.22 *H 1.17 *H Albumin (3.5 - 5.0 g/dL) 2.5 L Hematology CBC w Diff NO MAN DIFF REQ WBC (4.8 - 10.8 /CUMM) 6.7 RBC (4.70 - 6.10 /CUMM) 3.00 L Hgb (14.0 - 18.0 G/DL) 9.0 L Hct (42 - 52 %) 27.3 L MCV (80.0 - 94.0 FL) 91.0 MCH (27.0 - 31.0 PG) 29.9 MCHC (33.0 - 37.0 G/DL) 32.8 L RDW (11.5 - 14.5 %) 15.9 H Plt Count (130 - 400 /CUMM) 168 MPV (7.4 - 10.4 FL) 9.6 Gran % (42.2 - 75.2 %) 72.3 Lymphocytes % (20.5 - 51.1 %) 15.9 L Monocytes % (1.7 - 9.3 %) 11.5 H Eosinophils % (0 - 5 %) 0.2 Basophils % (0.0 - 2.0 %) 0.1 Absolute Granulocytes (1.4 - 6.5 /CUMM) 4.8 Absolute Lymphocytes (1.2 - 3.4 /CUMM) 1.1 L Absolute Monocytes (0.10 - 0.60 /CUMM) 0.8 H Absolute Eosinophils (0.0 - 0.7 /CUMM) 0 Absolute Basophils (0.0 - 0.2 /CUMM) 0
[2017-11-13 21:07] VITALS: BP 136/65
[2017-11-14 06:26] VITALS: BP 128/54
[2017-11-14 08:22] LABS: ABSOLUTE BASOPHIL COUNT 0 /CUMM (0.0-0.2); ABSOLUTE EOSINOPHIL COUNT 0.1 /CUMM (0.0-0.7); ABSOLUTE GRANULOCYTE CT 4.5 /CUMM (1.4-6.5); ABSOLUTE LYMPH COUNT 1.6 /CUMM (1.2-3.4); ABSOLUTE MONOCYTE COUNT 0.6 /CUMM (0.10-0.60); BASOPHIL % 0.3 % (0.0-2.0); GRANULOCYTE % 65.5 % (42.2-75.2); HEMATOCRIT 32.3 % (42-52); MEAN CORPUSCULAR HGB 29.4 PG (27.0-31.0); MEAN CORPUSCULAR HGB CONC 32.6 G/DL (33.0-37.0); MEAN CORPUSCULAR VOLUME 90.2 FL (80.0-94.0); MEAN PLATELET VOLUME 9.5 FL (7.4-10.4); PLATELET COUNT 226 /CUMM (130-400); RBC DISTRIBUTION WIDTH 16.3 % (11.5-14.5); RED BLOOD CELL CT 3.58 /CUMM (4.70-6.10); WHITE BLOOD CELL COUNT 6.9 /CUMM (4.8-10.8)
--- NOTE | 2017-11-14 09:53 | PN- Infect Dx ---
Subjective Subjective: Afebrile. He feels well with no complaints. Objective Last 24 Hrs of Vital Signs/I&O Vital Signs Date Time Temp Pulse Resp B/P B/P Pulse O2 O2 Flow FiO2 Mean Ox Delivery Rate 11/14 917 94 Nasal 55% Cannula 11/14 0626 98.0 49 18 128/54 96 Nasal Cannula 11/14 0213 58 96 11/14 0019 61 93 08/ 0000 BIPAP 11/13 2228 94 11/13 2213 98.4 18 98 Nasal Cannula 11/13 2143 94 Nasal 65% Cannula 11/13 2112 55 136/65 11/13 2107 55 136/65 11/13 1941 90 Nasal 60% Cannula 11/13 1700 59 154/70 11/13 1630 92 Nasal 60% Cannula 11/13 1600 98.1 77 18 110/52 97 Nasal 60% Cannula 11/13 1504 55 130/78 11/13 1418 Nasal 55% Cannula 11/13 1200 95 Nasal 60% Cannula Intake & Output 11/14 1600 11/14 0800 11/14 0000 Intake Total 180 120 Output Total 750 450 Balance -570 -330 Intake, Oral 180 120 Number 2 Bowel Movements Output, Urine 750 450 Patient 279 lb Weight Weight Bed scale Measurement Method Physical Exam Other Physical Findings: He appears comfortable, on high flow oxygen, in no acute distress Lungs are clear Heart regular rhythm with no murmur Abdomen is distended, nontender with positive bowel sounds Back no CVA tenderness Extremities chronic changes, with 1-2+ edema, both lower extremities Results Last 24 Hours of Lab Results: Laboratory Tests 11/14 11/14 0555 0555 Chemistry Sodium (137 - 145 mmol/L) 142 Potassium (3.5 - 5.1 mmol/L) 3.8 Chloride (98 - 107 mmol/L) 104 Carbon Dioxide (22 - 30 mmol/L) 28 Anion Gap (5 - 16) 10 BUN (9 - 20 mg/dL) 93 H Creatinine (0.7 - 1.2 mg/dL) 6.4 *H Estimated GFR (>60 ml/min) 9 L Glucose (65 - 99 mg/dL) 103 H Calcium (8.4 - 10.2 mg/dL) 8.3 L Phosphorus (2.5 - 4.5 mg/dL) 6.5 H Magnesium (1.6 - 2.3 mg/dL) 2.1 Total Bilirubin (0.2 - 1.3 mg/dL) 0.4 AST (17 - 59 U/L) 24 ALT (21 - 72 U/L) 24 Albumin (3.5 - 5.0 g/dL) 2.9 L Hematology CBC w Diff NO MAN DIFF REQ WBC (4.8 - 10.8 /CUMM) 6.9 RBC (4.70 - 6.10 /CUMM) 3.58 L Hgb (14.0 - 18.0 G/DL) 10.5 L Hct (42 - 52 %) 32.3 L MCV (80.0 - 94.0 FL) 90.2 MCH (27.0 - 31.0 PG) 29.4 MCHC (33.0 - 37.0 G/DL) 32.6 L RDW (11.5 - 14.5 %) 16.3 H Plt Count (130 - 400 /CUMM) 226 MPV (7.4 - 10.4 FL) 9.5 Gran % (42.2 - 75.2 %) 65.5 Lymphocytes % (20.5 - 51.1 %) 23.8 Monocytes % (1.7 - 9.3 %) 8.4 Eosinophils % (0 - 5 %) 2.0 Basophils % (0.0 - 2.0 %) 0.3 Absolute Granulocytes (1.4 - 6.5 /CUMM) 4.5 Absolute Lymphocytes (1.2 - 3.4 /CUMM) 1.6 Absolute Monocytes (0.10 - 0.60 /CUMM) 0.6 Absolute Eosinophils (0.0 - 0.7 /CUMM) 0.1 Absolute Basophils (0.0 - 0.2 /CUMM) 0 Toxicology Random Vancomycin (ug/ml) Cancelled 14.6 Last 24 Hours of [place] Results: Blood culture x November 12 negative Assessment/Plan ID Impression: Stable, with temperatures and white blood cell count remaining normal, on Ceftriaxone, Day 5 of treatment for gram-negative sepsis, with Proteus and Morganella isolated from the blood cultures, presumably of urologic origin, given his history of urethral strictures and intermittent self straight catheterization. He has apparently been evaluated by Urology, though there is no documentation regarding this, with plans for a possible cystoscopy on this admission. He has not had any imaging on this admission but a recent CT of the abdomen and pelvis revealed atrophic kidneys, with no hydronephrosis or obstruction. His respiratory status has overall improved, with significant diuresis, though he remains on high flow oxygen. Suggestion: 1. Urology follow-up 2. Further management of his respiratory status per Pulmonary 3. Further management of his fluids per Renal 4. Continue Ceftriaxone pending above
--- NOTE | 2017-11-14 09:58 | PN- Housestaff ---
KarlaghazalaCody 11/14/17 0958: Subjective Follow-up For: Elevated Troponins, RUTH, Acute Hypoxemic Respiratory Failure Tele-Events Since Last Visit: SB 53 - 72 Subjective: Patient seen and examined today lying in bed. He denies any new complaints. No events overnight. Review of Systems Constitutional: Reports: see HPI. Gastrointestinal: Reports: see HPI. Objective Last 24 Hrs of Vital Signs/I&O Vital Signs Date Time Temp Pulse Resp B/P B/P Pulse O2 O2 Flow FiO2 Mean Ox Delivery Rate 11/15 0000 Nasal 6.0L Cannula 11/14 2234 78 98 11/14 2231 98.9 64 20 150/80 93 Nasal Cannula 11/14 2215 61 150/80 11/14 1600 94 Nasal 6.0L Cannula 11/14 1443 97.6 58 20 138/72 93 Nasal 6.0L Cannula 11/14 1303 140/50 11/14 1132 98 Nasal 6.0L Cannula 11/14 1105 172/84 11/14 1105 58 172/84 11/14 0918 94 Nasal 55% Cannula 11/14 08 96 60% 11/14 0626 98.0 49 18 128/54 96 Nasal Cannula Intake & Output 11/15 0811/15 0000 11/14 1600 Intake Total 550 Output Total 600 500 Balance -600 50 Intake, IV 50 Intake, Oral 500 Output, Stool 200 500 Output, Urine 400 Physical Exam General Appearance: Alert, Oriented X3, No Acute Distress HEENT: Atraumatic, PERRLA, EOMI Neck: Supple Cardiovascular: Normal S1, Normal S2 Lungs: B/L Diffuse Crackles Abdomen: Normal Bowel Sounds, Soft Neurological: Normal Speech Extremities: 2+ Pedal Edema B/L Current Medications: Current Medications Sig/Jose Angel Start time Last Medication Dose Route Stop Time Status Admin Acetaminophen 650 MG .STK-MED ONE 11/14 0916 DC PO 11/14 09 Acetaminophen 1,000 MG Q6P PRN 11/09 1800 AC 11/12 N/A 1 UNIT IV 1607 Acetaminophen 650 MG Q6P PRN 11/09 1645 AC 11/14 PO 0900 Amlodipine Besylate 10 MG DAILY 11/11 0902 AC 11/14 PO 1105 Aspirin 81 MG DAILY 11/10 09 AC 11/14 PO 1105 Atorvastatin Calcium 40 MG DAILY@1700 11/10 1700 AC 11/14 PO 1725 Ceftriaxone Sodium 1,000 MG DAILY 11/12 1215 AC 11/14 IV 1103 Furosemide 100 MG 7:30 AM, & 4:30 PM 11/14 0730 AC 11/14 Sodium Chloride 50 ML IV 1639 Heparin Sodium 5,000 UNIT Q8 11/09 2200 AC 11/14 (Porcine) SC 2210 Hydralazine HCl 75 MG TID 11/11 2100 AC 11/14 PO 2215 Insulin Aspart 0 TIDAC 11/10 1200 AC 11/14 SC 1725 Insulin Detemir 4 UNITS BID 11/12 0900 AC 11/14 SC 2209 Lidocaine 1 PAT DAILY@1900 11/10 1900 AC 11/12 EXT 2048 Magnesium Oxide 400 MG BID 11/09 2256 AC 11/14 PO 2210 Melatonin 5 MG ONCE ONE 11/14 2215 DC 11/14 PO 11/14 2216 2218 Metoprolol Tartrate 75 MG BID 11/10 0900 AC 11/14 PO 2215 Patient Medication 1 ED ONE ONE 11/14 1430 DC Teaching ED 11/14 1431 Sevelamer Carbonate 1,600 MG TIDAC 11/10 1700 AC 11/14 PO 1725 Sodium Bicarbonate 1,950 MG TID 11/09 2100 AC 11/14 PO 2209 Sodium Hypochlorite 1 MEI BID 11/09 2100 11/13 TOP 0908 Last 24 Hrs of Lab/[place] Results Last 24 Hrs of Labs/Mics: Laboratory Tests 11/14/17 0555: Random Vancomycin Cancelled 11/14/17 0555: Anion Gap 10, Estimated GFR 9 L, Glucose 103 H, Calcium 8.3 L, Phosphorus 6.5 H, Magnesium 2.1, Total Bilirubin 0.4, AST 24, ALT 24, Albumin 2.9 L, CBC w Diff NO MAN DIFF REQ, RBC 3.58 L, MCV 90.2, MCH 29.4, MCHC 32.6 L, RDW 16.3 H , MPV 9.5, Gran % 65.5, Lymphocytes % 23.8, Monocytes % 8.4, Eosinophils % 2.0, Basophils % 0.3, Absolute Granulocytes 4.5, Absolute Lymphocytes 1.6, Absolute Monocytes 0.6, Absolute Eosinophils 0.1, Absolute Basophils 0, Random Vancomycin 14.6 Assessment/Plan Assessment: The patient is 80 year old male with PMH significant for insulin dependent DMII c/b neuropathy/retinopathy, HFpEF, CKD stage IV/V on aranesp, procrit, and sevalamer, secondary to diabetic and obstructive nephropathy, h/o urethral strictures requiring intermittent straight catheterization, CAD s/p CABG (2005), HTN, and KALE on CPAP presented with fever and acute hypoxemic respiratory failure probable sepsis of urological origin, demand supply mismatch in the setting of infection, and hypoxemia attributed to volume overload, CKD, and HFpEF. 1. Sepsis of urologic origin (cultures growing Morganella and Proteus); in the setting of possible bladder outlet obstruction due to uretral strictures. - Continue abx therapy - Appreciate recs from ID - No interval development of nephrolithiasis or urinary tract obstruction on CT abd - Waiting for recs from Urology 3. Acute on chronic kidney disease stage V. - Considering possible outpatient peritoneal dialysis over hemodialysis in association with pt's preferences by nephrology 4. Acute hypoxemic respiratory failure, ascites, pleural effusions secondary to volume overload - Cont diuresis with Lasix 400mg IV twice daily - Nephrology input on need for intermittent doses of metolazone - On high flow oxygen 60% 5. Elevated troponins: Attributed to demand ischemia in the setting of renal disease, by the cardiology service. - Continue Metoprolol, Statin 6. Chronic conditions (HTN, Anemia of Chronic Disese, DM, KALE, Neuropathy) - Continue meds Problem List: 1. Acute hypoxemic respiratory failure Pain Ratin Pain Location: NA Pain Goal: Remain pain free Pain Plan: NA Tomorrow's Labs & Rationales: BEP, BAYRON Zheng MD,[facility] 11/14/17 1352: Attending MD Review Statement Attending Statement Attending MD Statement: examined this patient, discuss w/resident/PA/REGISTERED NURSING PROFESSOR, agreed w/resident/PA/REGISTERED NURSING PROFESSOR, reviewed EMR data (avail), discussed with nursing, discussed with case mgmt, amended to note Attending Assessment/Plan: Problems: 1. Sepsis of urologic origin; cultures growing Morganella and Proteus. 2. History of bladder outlet obstruction 3. Acute on chronic kidney disease stage V. 4. Acute hypoxemic respiratory failure, ascites, pleural effusions secondary to volume overload. 5. Elevated troponins. Attributed to demand ischemia by the cardiology service. This is also in the setting of renal disease. Plan: -Patient continues to require high flow oxygen supplementation. Will wean down as tolerated. -Continue antibiotic therapy for his infection. Complete 14 days as recommended by the cardiology service. -Awaiting evaluation and recommendations from the urology service. -Continue diuresis with Lasix 400 mg IV twice daily. Follow-up with the nephrology service regarding ongoing need for intermittent doses of metolazone. Currently he has had no improvement of his renal function. He remains volume overloaded. No evidence of urinary tract obstruction noted on CT scan abdomen.
--- NOTE | 2017-11-14 10:35 | PN- Pulmonary ---
Subjective HPI/Critical Care Issues: pt seen and examined still on high flow fio2 reduced to 60% feeling better awaiting plan for dc Objective Current Medications: Current Medications Sig/Jose Angel Start time Last Medication Dose Route Stop Time Status Admin Acetaminophen 1,000 MG Q6P PRN 11/09 1800 AC 11/12 N/A 1 UNIT IV 1607 Acetaminophen 650 MG Q6P PRN 11/09 1645 AC PO Amlodipine Besylate 10 MG DAILY 11/11 0902 AC 11/13 PO 0907 Aspirin 81 MG DAILY 11/10 09 AC 11/13 PO 0907 Atorvastatin Calcium 40 MG DAILY@1700 11/10 1700 AC 11/13 PO 1654 Ceftriaxone Sodium 1,000 MG DAILY 11/12 1215 AC 11/13 IV 0907 Furosemide 100 MG 7:30 AM, & 4:30 PM 11/14 0730 AC Sodium Chloride 50 ML IV Furosemide 100 MG 7:30 AM, & 4:30 PM 11/11 0730 DC 11/13 IV 1654 Heparin Sodium 5,000 UNIT Q8 11/09 2200 AC 11/14 (Porcine) SC 0530 Hydralazine HCl 75 MG TID 11/11 2100 AC 11/13 PO 2112 Insulin Aspart 0 TIDAC 11/10 1200 AC 11/12 SC 1648 Insulin Detemir 4 UNITS BID 11/12 0900 AC 11/13 SC 2113 Lidocaine 1 PAT DAILY@19011/10 1900 AC 11/12 EXT 2048 Magnesium Oxide 400 MG BID 11/09 2256 AC 11/13 PO 2112 Metoprolol Tartrate 75 MG BID 11/10 0900 AC 11/13 PO 211 Sevelamer Carbonate 1,600 MG TIDAC 11/10 1700 AC 11/13 PO 1654 Sodium Bicarbonate 1,950 MG TID 11/09 2100 AC 11/13 PO 2112 Sodium Hypochlorite 1 MEI BID 11/09 2100 AC 11/13 TOP 0908 Vital Signs & I&O Last 24 Hrs of Vitals and I&O: Vital Signs Date Time Temp Pulse Resp B/P B/P Pulse O2 O2 Flow FiO2 Mean Ox Delivery Rate 11/14 0918 94 Nasal 55% Cannula 11/14 06 98.0 49 18 128/54 96 Nasal Cannula 11/14 0213 58 96 11/14 0019 61 93 11/14 0000 BIPAP 11/13 2228 94 08/01 2213 98.4 18 98 Nasal Cannula 11/13 2143 94 Nasal 65% Cannula 11/13 2112 55 136/65 11/13 2107 55 136/65 11/13 1941 90 Nasal 60% Cannula 11/13 1700 59 154/70 11/13 1630 92 Nasal 60% Cannula 11/13 1600 98.1 77 18 110/52 97 Nasal 60% Cannula 11/13 1504 55 130/78 11/13 1418 Nasal 55% Cannula 11/13 1200 95 Nasal 60% Cannula Intake & Output 11/14 1600 11/14 0800 11/14 0000 Intake Total 180 120 Output Total 750 450 Balance -570 -330 Intake, Oral 180 120 Number 2 Bowel Movements Output, Urine 750 450 Patient 279 lb Weight Weight Bed scale Measurement Method Exam Other Physical Findings: gen-awake and alert heent-high flow NC cvs-s1,s2 lungs-rare rhonchi scattered, diminished bs at bases abd-soft, bs+ ext-chronic wound/dressing Results Last 24 Hrs of Lab Results: Laboratory Tests 11/14/17 0555: Random Vancomycin Cancelled 11/14/17 0555: Anion Gap 10, Estimated GFR 9 L, Glucose 103 H, Calcium 8.3 L, Phosphorus 6.5 H, Magnesium 2.1, Total Bilirubin 0.4, AST 24, ALT 24, Albumin 2.9 L, CBC w Diff NO MAN DIFF REQ, RBC 3.58 L, MCV 90.2, MCH 29.4, MCHC 32.6 L, RDW 16.3 H , MPV 9.5, Gran % 65.5, Lymphocytes % 23.8, Monocytes % 8.4, Eosinophils % 2.0, Basophils % 0.3, Absolute Granulocytes 4.5, Absolute Lymphocytes 1.6, Absolute Monocytes 0.6, Absolute Eosinophils 0.1, Absolute Basophils 0, Random Vancomycin 14.6 Impression/Plan Impression/Plan Impression/Plan: Impression 62 year old man * sepsis - likely urinary source - proteus & morganella bacteremia - MRSA surveillance * acute hypoxemic respiratory failure secondary to volume overload * hx of b/l pleural effusions * CKD Plan -reduce fio2 as tolerated to achieve spo2 goal >88% -continue diuresis -improving imaging -ID consultation appreciated -cont abx - Ceftriaxone -f/u all cx -cardiology appreciated -BP control -nephrology appreciated -ins/outs DVT prophylaxis at all times Full Code Follow up with Urology to discuss further need of cystoscopy
--- NOTE | 2017-11-14 11:24 | CT SCAN REPORT ---
EXAMINATION: CT ABDOMEN AND PELVIS WITHOUT CONTRAST CLINICAL INFORMATION: Abdominal pain. Presumptive diagnosis of obstructive nephropathy. COMPARISON: 09/23/2017 TECHNIQUE: Multidetector volumetric imaging was performed from the superior aspect of the liver through the pubic symphysis. Sagittal and coronal reformatted images were obtained on the technologist's workstation. DLP: 1426 mGy-cm FINDINGS: LUNG BASES: Calcified granulomas within lung bases. Mild cardiomegaly and atherosclerotic disease of coronary arteries in this patient who is status post coronary artery bypass graft surgery. Small, posteriorly layering pleural effusions are similar in size compared to 09/23/2017 and produce compressive atelectasis in the dependent aspect of each lower lobe. LIVER, GALLBLADDER, AND BILIARY TREE: Liver has normal size, contour and attenuation. 0.3 cm calcified granuloma within the anterior hepatic segment. No suspicious hepatic lesion. No radiopaque calculi within the gallbladder. No intrahepatic or extrahepatic bile duct dilatation. PANCREAS: Mild atrophy of the pancreas without focal lesion. SPLEEN: Mildly enlarged spleen measures 14.4 cm AP and 14.3 cm craniocaudal dimension, unchanged, and there are two punctate calcified granulomas of the spleen. ADRENAL GLANDS: Unremarkable. KIDNEYS AND URETERS: Mild bilateral renal cortical atrophy. No nephrolithiasis or hydroureteronephrosis. BLADDER: Unremarkable. 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 Loops of bowel are normal in caliber. Diverticulosis of the distal descending and sigmoid colon. The evaluation for diverticulitis is suboptimal due to persistent ascites and mild edema of the mesentery. There is no overt diverticulitis. Large volume of ascites is present in the abdomen pelvis, similar compared to 09/23/2017. No pneumoperitoneum. No peritoneal nodules. ABDOMINAL WALL: Diffuse edema in subcutaneous tissues. Again noted is the fat-containing left inguinal hernia. LYMPH NODES: No pathologic sized lymph nodes within the abdomen or pelvis. Again noted are mildly enlarged inguinal lymph nodes. Largest right inguinal lymph node is 1.5 cm short axis dimension and largest left inguinal lymph node is 1.3 cm short axis dimension (compared to 1.6 cm on 09/23/2017). VASCULAR: Atherosclerotic calcification of aorta and branch vessels, including SMA and branches of the celiac artery. No aneurysm. PELVIC VISCERA: Prostate gland is unremarkable. OSSEOUS STRUCTURES: Chondrocalcinosis and osteoarthrosis of the pubic symphysis. Symmetric osteoarthrosis of the sacroiliac joints. Mild osteoarthrosis of the hips. Mild dextrocurvature of the degenerated lumbar spine with disc degenerative changes worst at L3-L4 and L4-L5. Chronic degenerative disc disease at T10-T11 with prominent Schmorl's nodes. Old, healed fracture of left posterior 10th rib. Mild generalized increased sclerosis of bones as may be seen in renal osteodystrophy. IMPRESSION: Persistent anasarca. Overall, findings in the visualized chest, abdomen and pelvis remain similar to those observed on 09/23/2017. Again noted are bilateral pleural effusions associated with compressive atelectasis in the lung bases. Large amount of ascitic fluid is present within the abdomen and there is diffuse edema of the body wall. No interval development of nephrolithiasis or urinary tract obstruction.
[2017-11-14 14:43] VITALS: BP 138/72
--- NOTE | 2017-11-14 15:04 | RADIOLOGY REPORT ---
EXAMINATION: XR PORTABLE CHEST CLINICAL INFORMATION: Fluid overload. Acute on chronic congestive heart failure. Recent aggressive diuresis. Looking for interval improvement. COMPARISON: Chest x-ray 11/12/2017, 5:52 AM , 11/11/2017 10:47 AM TECHNIQUE: Portable frontal view of the chest was obtained. 2:12 PM FINDINGS: There has been mild improvement of the pulmonary vascular congestion since prior chest x-ray. The central vessels have diminished in prominence with decreased interstitial lung markings. There is mild prominence of the central hilar vessels though remaining Density at the left lung base is persistent partial silhouetting of the diaphragm of left basilar infiltrate/atelectasis with small effusions. IMPRESSION: Continued decreased pulmonary vascular congestion since prior chest x-ray 11/12/2017. Mild prominence of the central hilar vessels though remains. There is persistent density at the left lung base of left basilar infiltrate/atelectasis and pleural effusion.
--- NOTE | 2017-11-14 15:56 | PN- Cardiology ---
Objective Vital Signs and I&Os Vital Signs Date Time Temp Pulse Resp B/P B/P Pulse O2 O2 Flow FiO2 Mean Ox Delivery Rate 11/14 1443 97.6 58 20 138/72 93 Nasal 6.0L Cannula 11/14 1303 140/50 11/14 1132 98 Nasal 6.0L Cannula 11/14 1105 172/84 11/14 1105 58 172/84 11/14 0918 94 Nasal 55% Cannula 11/14 0626 98.0 49 18 128/54 96 Nasal Cannula 11/14 0213 58 96 11/14 0019 61 93 11/14 0000 BIPAP 11/13 2228 94 11/13 2213 98.4 18 98 Nasal Cannula 11/13 2143 94 Nasal 65% Cannula 11/13 2112 55 136/65 11/13 2107 55 136/65 11/13 1941 90 Nasal 60% Cannula 11/13 1700 59 154/70 11/13 1630 92 Nasal 60% Cannula 11/13 1600 98.1 77 18 110/52 97 Nasal 60% Cannula Intake & Output 11/14 1600 11/14 0811/14 0000 11/13 1600 11/13 0811/13 0000 Intake Total 180 120 500 240 360 Output Total 814 744 2628 675 200 Balance -570 -330 -650 -435 160 Intake, IV 20 Intake, Oral 180 120 480 240 360 Number 2 2 2 1 Bowel Movements Output, Urine 289 188 8000 675 200 Patient 279 lb Weight Weight Bed scale Measurement Method Current Medications: Current Medications Sig/Jose Angel Start time Last Medication Dose Route Stop Time Status Admin Acetaminophen 1,000 MG Q6P PRN 11/09 1800 AC 11/12 N/A 1 UNIT IV 1607 Acetaminophen 650 MG Q6P PRN 11/09 1645 AC 11/14 PO 0900 Amlodipine Besylate 10 MG DAILY 11/11 09 AC 11/14 PO 1105 Aspirin 81 MG DAILY 11/10 09 AC 11/14 PO 1105 Atorvastatin Calcium 40 MG DAILY@1700 11/10 1700 AC 11/13 PO 1654 Ceftriaxone Sodium 1,000 MG DAILY 11/12 1215 AC 11/14 IV 1103 Furosemide 100 MG 7:30 AM, & 4:30 PM 11/14 0730 AC 11/14 Sodium Chloride 50 ML IV 1103 Furosemide 100 MG 7:30 AM, & 4:30 PM 07/30 0730 DC 11/13 IV 1654 Heparin Sodium 5,000 UNIT Q8 11/09 2200 AC 11/14 (Porcine) SC 1304 Hydralazine HCl 75 MG TID 11/11 2100 AC 11/14 PO 1303 Insulin Aspart 0 TIDAC 11/10 1200 AC 11/14 SC 1300 Insulin Detemir 4 UNITS BID 11/12 0900 AC 11/14 SC 1106 Lidocaine 1 PAT DAILY@1900 11/10 1900 AC 11/12 EXT 2048 Magnesium Oxide 400 MG BID 11/09 2256 AC 11/14 PO 1105 Metoprolol Tartrate 75 MG BID 11/10 0900 AC 11/14 PO 1105 Patient Medication 1 ED ONE ONE 11/14 1430 DC Teaching ED 11/14 1431 Sevelamer Carbonate 1,600 MG TIDAC 11/10 1700 AC 11/14 PO 1135 Sodium Bicarbonate 1,950 MG TID 11/09 2100 AC 11/14 PO 1303 Sodium Hypochlorite 1 MEI BID 11/09 2100 AC 11/13 TOP 0908 Results Last 48 Hrs of Labs/Mics: Laboratory Tests 11/14/17 0555: Random Vancomycin Cancelled 11/14/17 0555: Anion Gap 10, Estimated GFR 9 L, Glucose 103 H, Calcium 8.3 L, Phosphorus 6.5 H, Magnesium 2.1, Total Bilirubin 0.4, AST 24, ALT 24, Albumin 2.9 L, CBC w Diff NO MAN DIFF REQ, RBC 3.58 L, MCV 90.2, MCH 29.4, MCHC 32.6 L, RDW 16.3 H , MPV 9.5, Gran % 65.5, Lymphocytes % 23.8, Monocytes % 8.4, Eosinophils % 2.0, Basophils % 0.3, Absolute Granulocytes 4.5, Absolute Lymphocytes 1.6, Absolute Monocytes 0.6, Absolute Eosinophils 0.1, Absolute Basophils 0, Random Vancomycin 14.6 11/13/17 0420: Anion Gap 17 H, Estimated GFR 9 L, Glucose 87, Calcium 8.2 L, Phosphorus 6.7 H, Magnesium 2.0, Total Bilirubin 0.4, AST 29, ALT 19 L, Albumin 2.7 L, CBC w Diff NO MAN DIFF REQ, RBC 3.41 L, MCV 91.9, MCH 29.6, MCHC 32.2 L, RDW 16.0 H , MPV 9.8, Gran % 65.8, Lymphocytes % 21.6, Monocytes % 10.8 H, Eosinophils % 1.4, Basophils % 0.4, Absolute Granulocytes 4.3, Absolute Lymphocytes 1.4, Absolute Monocytes 0.7 H, Absolute Eosinophils 0.1, Absolute Basophils 0 Assessment/Plan Assessment/Plan Assessment: 1. CAD, status post CABG 2. Hypertension, now controlled 3. Diabetes mellitus 4. KALE 5. Acute on chronic HFpEF 6. Sepsis 7. Mild troponin elevation, likely secondary to demand ischemia Recommendations: -Continue diuretic regimen as per Nephrology -Keep on security monitor for now -Followup labs pending Continue telemetry? Yes
[2017-11-14 22:31] VITALS: BP 150/80
[2017-11-15 06:52] VITALS: BP 138/50
[2017-11-15 08:04] LABS: ABSOLUTE BASOPHIL COUNT 0 /CUMM (0.0-0.2); ABSOLUTE EOSINOPHIL COUNT 0.2 /CUMM (0.0-0.7); ABSOLUTE GRANULOCYTE CT 4.8 /CUMM (1.4-6.5); ABSOLUTE LYMPH COUNT 1.7 /CUMM (1.2-3.4); ABSOLUTE MONOCYTE COUNT 0.7 /CUMM (0.10-0.60); BASOPHIL % 0.4 % (0.0-2.0); EOSINOPHIL % 2.5 % (0-5); GRANULOCYTE % 65.1 % (42.2-75.2); HEMATOCRIT 31.6 % (42-52); MEAN CORPUSCULAR HGB 29.6 PG (27.0-31.0); MEAN CORPUSCULAR HGB CONC 32.4 G/DL (33.0-37.0); MEAN CORPUSCULAR VOLUME 91.4 FL (80.0-94.0); MEAN PLATELET VOLUME 9.4 FL (7.4-10.4); PLATELET COUNT 234 /CUMM (130-400); RBC DISTRIBUTION WIDTH 15.7 % (11.5-14.5); RED BLOOD CELL CT 3.46 /CUMM (4.70-6.10); WHITE BLOOD CELL COUNT 7.4 /CUMM (4.8-10.8)
--- NOTE | 2017-11-15 10:24 | PN- Att Addend ---
Attending Addendum Attending Brief Note Patient seen and examined. Lying comfortably in bed not in acute distress. No issues overnight. No events on telemetry monitoring. Oxygen requirement has improved. Now on nasal cannula with concentrator pendant. Afebrile. Hemodynamically stable. Denies chest pain or shortness of breath at rest. He is eager to ambulate. Vital Signs Date Time Temp Pulse Resp B/P B/P Pulse O2 O2 Flow FiO2 Mean Ox Delivery Rate 11/15 0843 68 162/80 11/15 0843 68 162/80 11/15 0652 97.3 52 18 138/50 95 / 0000 Nasal 6.0L Cannula 11/14 2234 78 98 / 2231 98.9 64 20 150/80 93 Nasal Cannula 11/14 2215 61 150/80 11/14 1600 94 Nasal 6.0L Cannula 11/14 1443 97.6 58 20 138/72 93 Nasal 6.0L Cannula 11/14 1303 140/50 11/14 1132 98 Nasal 6.0L Cannula 11/14 1105 172/84 11/14 1105 58 172/84 General appearance: Not in acute respiratory distress HEENT: Anicteric, no pallor, pupils equal and reactive. Neck: Supple with no jugular venous distention. Heart: S1-S2 regular with diminished breath sounds in the bases. Lungs: Adequate and symmetric air entry bilaterally with no added sounds. Abdomen: Distended with normal bowel sounds. Soft, nontender with no palpable masses. Extremities: Bilateral pedal edema Skin: Intact Laboratory Tests 11/15/17 0642: Anion Gap 8, Estimated GFR 9 L, BUN/Creatinine Ratio 14.7, CBC w Diff NO MAN DIFF REQ, RBC 3.46 L, MCV 91.4, MCH 29.6, MCHC 32.4 L, RDW 15.7 H, MPV 9.4, Gran % 65.1, Lymphocytes % 22.8, Monocytes % 9.2, Eosinophils % 2.5, Basophils % 0.4, Absolute Granulocytes 4.8, Absolute Lymphocytes 1.7, Absolute Monocytes 0.7 H, Absolute Eosinophils 0.2, Absolute Basophils 0 Problems: 1. Sepsis of urologic origin; cultures growing Morganella and Proteus. 2. History of bladder outlet obstruction 3. Acute on chronic kidney disease stage V. 4. Acute hypoxemic respiratory failure, ascites, pleural effusions secondary to volume overload. 5. Elevated troponins. Attributed to demand ischemia by the cardiology service. This is also in the setting of renal disease. Plan: -Please follow-up with the ID service regarding transferring patient to oral antibiotic therapy. - per Dr. Toy Cancino any urology intervention, is being deferred to a later date. -Patient continues to diurese appropriately with aggressive diuretic therapy. Recommendations are present from the nephrology service regarding urgent hemodialysis. We will continue to diurese as recommended. Patient appears to be slowly improving as evidenced by his improving oxygen requirement. He does however continue to remain significantly volume overloaded. -He remains asymptomatic from a cardiac standpoint. Cardiac enzymes are trending downwards. We will follow recommendations from the cardiology service. -Patient requesting to mobilize with his walker. This has been discussed with nursing staff.Physical therapy consultation may be obtained if needed.
--- NOTE | 2017-11-15 10:26 | PN- Cardiology ---
Subjective Subjective: Cardiac status unchanged. No new symptoms. No arrhythmias detected over the last 24 hours on telemetry monitoring Objective Vital Signs and I&Os Vital Signs Date Time Temp Pulse Resp B/P B/P Pulse O2 O2 Flow FiO2 Mean Ox Delivery Rate 11/15 0843 68 162/80 11/15 0843 68 162/80 11/15 0652 97.3 52 18 138/50 95 08/03 0000 Nasal 6.0L Cannula 11/14 2234 78 98 / 2231 98.9 64 20 150/80 93 Nasal Cannula 11/14 2215 61 150/80 11/14 1600 94 Nasal 6.0L Cannula 11/14 1443 97.6 58 20 138/72 93 Nasal 6.0L Cannula 11/14 1303 140/50 11/14 1132 98 Nasal 6.0L Cannula 11/14 1105 172/84 11/14 1105 58 172/84 Intake & Output 11/15 1600 11/15 0800 08/03 0000 11/14 1600 11/14 0800 11/14 0000 Intake Total 550 180 120 Output Total 350 600 500 750 450 Balance -350 -600 50 -570 -330 Intake, IV 50 Intake, Oral 500 180 120 Number 2 2 Bowel Movements Output, Stool 200 500 Output, Urine 350 400 750 450 Patient 279 lb Weight Weight Bed scale Measurement Method Physical Exam: General Appearance: well developed/nourished, alert, awake, oriented Head: normal HEENT: Normal Neck: supple, JVP normal, carotid upstrokes normal bilaterally, no masses or thyromegaly Respiratory: chest non-tender, clear to auscultation and percussion bilaterally Cardiovascular: regular rate/rhythm, normal S1, S2, 1-2/6 systolic murmur Abdomen: normal bowel sounds, soft, non-tender Extremities: normal inspection, 2+ edema Vascular: Pulses are 2+ and equal bilaterally Neurologic: Grossly normal/nonfocal Current Medications: Current Medications Sig/Jose Angel Start time Last Medication Dose Route Stop Time Status Admin Acetaminophen 1,000 MG Q6P PRN 11/09 1800 AC 11/12 N/A 1 UNIT IV 1607 Acetaminophen 650 MG Q6P PRN 11/09 1645 AC 11/15 PO 0925 Alprazolam 0.25 MG DAILY PRN 11/15 0930 AC 11/15 PO 11/22 928 0925 Amlodipine Besylate 10 MG DAILY 11/11 09 AC 11/15 PO 0843 Aspirin 81 MG DAILY 11/10 0900 AC 11/15 PO 0842 Atorvastatin Calcium 40 MG DAILY@1700 11/10 1700 AC 11/14 PO 1725 Ceftriaxone Sodium 1,000 MG DAILY 11/12 1215 AC 11/15 IV 0843 Furosemide 100 MG 7:30 AM, & 4:30 PM 11/14 0730 AC 11/15 Sodium Chloride 50 ML IV 0845 Heparin Sodium 5,000 UNIT Q8 11/09 2200 AC 11/15 (Porcine) SC 0641 Hydralazine HCl 75 MG TID 11/11 2100 AC 11/15 PO 0843 Insulin Aspart 0 TIDAC 11/10 1200 AC 11/14 SC 1725 Insulin Detemir 4 UNITS BID 11/12 0900 AC 11/15 SC 0902 Lidocaine 1 PAT DAILY@19011/10 1900 AC 11/12 EXT 2048 Magnesium Oxide 400 MG BID 11/09 2256 AC 11/15 PO 0842 Melatonin 5 MG ONCE ONE 11/14 2215 DC 11/14 PO 11/14 2216 2218 Metoprolol Tartrate 75 MG BID 11/10 09 AC 11/15 PO 0843 Patient Medication 1 ED ONE ONE 11/14 1430 DC Teaching ED 11/14 1431 Sevelamer Carbonate 1,600 MG TIDAC 11/10 1700 AC 11/15 PO 0842 Sodium Bicarbonate 1,950 MG TID 11/09 2100 AC 11/15 PO 0842 Sodium Hypochlorite 1 MEI BID 11/09 2100 AC 11/15 TOP 0844 Results Last 48 Hrs of Labs/Mics: Laboratory Tests 11/15/17 0642: Anion Gap 8, Estimated GFR 9 L, BUN/Creatinine Ratio 14.7, CBC w Diff NO MAN DIFF REQ, RBC 3.46 L, MCV 91.4, MCH 29.6, MCHC 32.4 L, RDW 15.7 H, MPV 9.4, Gran % 65.1, Lymphocytes % 22.8, Monocytes % 9.2, Eosinophils % 2.5, Basophils % 0.4, Absolute Granulocytes 4.8, Absolute Lymphocytes 1.7, Absolute Monocytes 0.7 H, Absolute Eosinophils 0.2, Absolute Basophils 0 11/14/17 0555: Random Vancomycin Cancelled 11/14/17 0555: Anion Gap 10, Estimated GFR 9 L, Glucose 103 H, Calcium 8.3 L, Phosphorus 6.5 H, Magnesium 2.1, Total Bilirubin 0.4, AST 24, ALT 24, Albumin 2.9 L, CBC w Diff NO MAN DIFF REQ, RBC 3.58 L, MCV 90.2, MCH 29.4, MCHC 32.6 L, RDW 16.3 H , MPV 9.5, Gran % 65.5, Lymphocytes % 23.8, Monocytes % 8.4, Eosinophils % 2.0, Basophils % 0.3, Absolute Granulocytes 4.5, Absolute Lymphocytes 1.6, Absolute Monocytes 0.6, Absolute Eosinophils 0.1, Absolute Basophils 0, Random Vancomycin 14.6 Assessment/Plan Assessment/Plan Assessment: 1. CAD, status post CABG 2. Hypertension, now controlled 3. Diabetes mellitus 4. KALE 5. Acute on chronic HFpEF 6. Sepsis 7. Mild troponin elevation, likely secondary to demand ischemia Recommendations: -Continue diuretic regimen as per Nephrology -Keep on awake overnight monitor for now -Followup labs pending Continue telemetry? Yes
--- NOTE | 2017-11-15 10:28 | PN- Housestaff ---
Subjective Follow-up For: Acute Hypoxemic Respiratory Failure, RUTH Tele-Events Since Last Visit: SB 56 - SR 64 Subjective: Patient seen and examined lying in bed. No acute events overnight. Patient reports anxiety and trouble sleeping now. He is getting restless in bed and would like to move around more. Patient had a bowel movement. He feels that his breathing is slightly better. No other complaints. Review of Systems Constitutional: Reports: see HPI. Objective Last 24 Hrs of Vital Signs/I&O Vital Signs Date Time Temp Pulse Resp B/P B/P Pulse O2 O2 Flow FiO2 Mean Ox Delivery Rate 11/15 1314 56 120/62 11/15 0843 68 162/80 11/15 0843 68 162/80 11/15 0800 95 Nasal 6.0L Cannula 11/15 0652 97.3 52 18 138/50 95 11/15 0000 Nasal 6.0L Cannula 11/14 2234 78 98 11/14 2231 98.9 64 20 150/80 93 Nasal Cannula 11/14 2215 61 150/80 11/14 1600 94 Nasal 6.0L Cannula 11/14 1443 97.6 58 20 138/72 93 Nasal 6.0L Cannula Intake & Output 11/15 1600 / 0800 11/15 0000 Intake Total 800 Output Total 300 350 600 Balance 500 -350 -600 Intake, IV 60 Intake, Oral 740 Number 3 2 Bowel Movements Output, Stool 200 Output, Urine 300 350 400 Physical Exam General Appearance: Alert, Cooperative, No Acute Distress Skin Temp/Moisture Exam: Warm/Dry Sepsis Skin Exam (color): Normal for Ethnicity HEENT: Atraumatic, PERRLA, EOMI Neck: Supple Cardiovascular: Normal S1, Normal S2 Lungs: Bibasalar Crackles Abdomen: Soft, No Tenderness Neurological: Normal Speech Extremities: 1+ pitting edema Current Medications: Current Medications Sig/Jose Angel Start time Last Medication Dose Route Stop Time Status Admin Acetaminophen 650 MG .STK-MED ONE 11/15 921 DC PO 11/15 922 Acetaminophen 1,000 MG Q6P PRN 11/09 1800 AC 11/12 N/A 1 UNIT IV 1607 Acetaminophen 650 MG Q6P PRN 11/09 1645 AC 11/15 PO 09 Alprazolam 0.25 MG AT BEDTIME 11/15 2100 DC PO 11/15 210 Alprazolam 0.25 MG DAILY PRN 11/15 0930 AC 11/15 PO 11/22 0929 0925 Amlodipine Besylate 10 MG DAILY 11/11 09 AC 11/15 PO 0843 Aspirin 81 MG DAILY 11/10 0900 AC 11/15 PO 0842 Atorvastatin Calcium 40 MG DAILY@1700 11/10 1700 AC 11/15 PO 1618 Ceftriaxone Sodium 1,000 MG DAILY 11/12 1215 AC 11/15 IV 0843 Furosemide 100 MG 7:30 AM, & 4:30 PM 11/14 0730 AC 11/15 Sodium Chloride 50 ML IV 1618 Heparin Sodium 5,000 UNIT Q8 11/09 2200 AC 11/15 (Porcine) SC 1312 Hydralazine HCl 75 MG TID 11/11 2100 AC 11/15 PO 1314 Insulin Aspart 0 TIDAC 11/10 1200 AC 11/15 SC 1206 Insulin Detemir 4 UNITS BID 11/12 0900 AC 11/15 SC 0902 Lidocaine 1 PAT DAILY@1900 11/10 1900 AC 11/12 EXT 2048 Magnesium Oxide 400 MG BID 11/09 2256 AC 11/15 PO 0842 Melatonin 5 MG ONCE ONE 11/14 2215 DC 11/14 PO 11/14 2216 2218 Metoprolol Tartrate 75 MG BID 11/10 09 AC 11/15 PO 0843 Sevelamer Carbonate 1,600 MG TIDAC 11/10 1700 AC 11/15 PO 1618 Sodium Bicarbonate 1,950 MG TID 11/09 2100 AC 11/15 PO 1312 Sodium Hypochlorite 1 MEI BID 11/09 2100 AC 11/15 TOP 0844 Last 24 Hrs of Lab/[place] Results Last 24 Hrs of Labs/Mics: Laboratory Tests 11/15/17 0642: Anion Gap 8, Estimated GFR 9 L, BUN/Creatinine Ratio 14.7, Phosphorus 6.4 H, CBC w Diff NO MAN DIFF REQ, RBC 3.46 L, MCV 91.4, MCH 29.6, MCHC 32.4 L, RDW 15.7 H, MPV 9.4, Gran % 65.1, Lymphocytes % 22.8, Monocytes % 9.2, Eosinophils % 2.5, Basophils % 0.4, Absolute Granulocytes 4.8, Absolute Lymphocytes 1.7, Absolute Monocytes 0.7 H, Absolute Eosinophils 0.2, Absolute Basophils 0 Assessment/Plan Assessment: The patient is 62 year old male with PMH significant for insulin dependent DMII c/b neuropathy/retinopathy, HFpEF, CKD stage IV/V on aranesp, procrit, and sevalamer, secondary to diabetic and obstructive nephropathy, h/o urethral strictures requiring intermittent straight catheterization, CAD s/p CABG (2005), HTN, and KALE on CPAP presented with fever and acute hypoxemic respiratory failure probable sepsis of urological origin, demand supply mismatch in the setting of infection, and hypoxemia attributed to volume overload, CKD, and HFpEF. 1. Sepsis of urologic origin (cultures growing Morganella and Proteus) - ID recs appreciated - Continue ceftriaxone until discharge - We will consider options for outpatient PO abx considering allergy to cipro 2. Acute hypoxemic respiratory failure, ascites, pleural effusions secondary to volume overload in the setting of CKD - Pulm recs appreciated - Improving oxygen requirement - Continue Lasix twice daily - Reduce FiO2 as tolerated to achieve SPO2 goal greater than 88% 3. Acute on chronic kidney disease stage V. - Nephro recs appreciated - Hypernatremia resolved - We will monitor phosphate levels 4. Elevated troponins - Cardio recs appreciated - Cardiac enzymes trending downwards 5. Acute on chronic kidney disease stage V - Hypernatremia resolved - We will monitor phosphate levels 6. Possible uretral strictures - Spoke with Dr. Cancino. Urology has signed off. - No further workup needed currently. 7. Anixety, Restlessness, Trouble Sleeping - Xanax 0.25 once daily 8. Chronic conditions (HTN, anemia of chronic disease, T2DM, KALE, neuropathy) - Continue current management Problem List: 1. Acute hypoxemic respiratory failure Pain Ratin Pain Location: NA Pain Goal: Remain pain free Pain Plan: Tylenol Tomorrow's Labs & Rationales: CBC, BEP
--- NOTE | 2017-11-15 12:00 | PN- Nephrology ---
Assessment/Plan Nephrology Assessment: 1. CKD V 2/2 DM with renal fx at or near baseline 2. UTI with polymicrbial bacteremia 3. Volume overload - improved? 4. Hypernatremia - resolved 5. Hyperphosphatemia Suggestion: 1. Continue twice daily parenteral Lasix 2. Please recheck serum phosphorus level 3. Strict intake and output, daily weights 4. Antibiotic therapy per ID 5. Urology follow-up Subjective Subjective: Patient denies any pain or shortness of breath. Blood pressure slightly high but stable. He remains afebrile with normal WBC. Weight appears to be decreasing with negative fluid balance. Objective Vital Signs and I&Os Vital Signs Date Time Temp Pulse Resp B/P B/P Pulse O2 O2 Flow FiO2 Mean Ox Delivery Rate 11/15 0843 68 162/80 11/15 0843 68 162/80 11/15 0800 95 Nasal 6.0L Cannula 11/15 0652 97.3 52 18 138/50 95 / 0000 Nasal 6.0L Cannula 11/14 2234 78 98 11/14 2231 98.9 64 20 150/80 93 Nasal Cannula 11/14 2215 61 150/80 11/14 1600 94 Nasal 6.0L Cannula 11/14 1443 97.6 58 20 138/72 93 Nasal 6.0L Cannula 11/14 1303 140/50 Intake & Output 11/15 1600 11/15 0400 11/14 1600 11/14 0400 11/13 1600 11/13 0400 Intake Total 730 120 740 360 Output Total 118 442 2282 450 1825 200 Balance -350 -600 -520 -330 -1085 160 Intake, IV 50 20 Intake, Oral 680 120 720 360 Number 2 2 4 1 Bowel Movements Output, Stool 200 500 Output, Urine 350 400 148 835 6211 200 Patient 279 lb Weight Weight Bed scale Measurement Method Physical Exam: General: Well-developed, WM in NAD Skin: No rash or jaundice HEENT: Conjunctivae pink, sclerae anicteric, mucous membranes dry Neck: Without masses or thyromegaly, no supraclavicular or cervical adenopathy Chest: Clear to P&A Heart: Regular rate and rhythm without S3 or rub Abdomen: Soft, nontender; no masses or organomegally Extremities: Without cyanosis; +edema, possibly less Neuro: Cognitively intact, no focal findings, no asterixis or myoclonus Results Pertinent Lab Results: Laboratory Tests 11/15 11/14 0642 0555 Chemistry Sodium (137 - 145 mmol/L) 140 Potassium (3.5 - 5.1 mmol/L) 3.7 Chloride (98 - 107 mmol/L) 103 Carbon Dioxide (22 - 30 mmol/L) 29 Anion Gap (5 - 16) 8 BUN (9 - 20 mg/dL) 91 H Creatinine (0.7 - 1.2 mg/dL) 6.2 *H Estimated GFR (>60 ml/min) 9 L BUN/Creatinine Ratio (7 - 25 %) 14.7 Hematology CBC w Diff NO MAN DIFF REQ WBC (4.8 - 10.8 /CUMM) 7.4 RBC (4.70 - 6.10 /CUMM) 3.46 L Hgb (14.0 - 18.0 G/DL) 10.3 L Hct (42 - 52 %) 31.6 L MCV (80.0 - 94.0 FL) 91.4 MCH (27.0 - 31.0 PG) 29.6 MCHC (33.0 - 37.0 G/DL) 32.4 L RDW (11.5 - 14.5 %) 15.7 H Plt Count (130 - 400 /CUMM) 234 MPV (7.4 - 10.4 FL) 9.4 Gran % (42.2 - 75.2 %) 65.1 Lymphocytes % (20.5 - 51.1 %) 22.8 Monocytes % (1.7 - 9.3 %) 9.2 Eosinophils % (0 - 5 %) 2.5 Basophils % (0.0 - 2.0 %) 0.4 Absolute Granulocytes (1.4 - 6.5 /CUMM) 4.8 Absolute Lymphocytes (1.2 - 3.4 /CUMM) 1.7 Absolute Monocytes (0.10 - 0.60 /CUMM) 0.7 H Absolute Eosinophils (0.0 - 0.7 /CUMM) 0.2 Absolute Basophils (0.0 - 0.2 /CUMM) 0 Toxicology Random Vancomycin Cancelled 11/14 11/13 0555 0420 Chemistry Sodium (137 - 145 mmol/L) 142 147 H Potassium (3.5 - 5.1 mmol/L) 3.8 3.8 Chloride (98 - 107 mmol/L) 104 106 Carbon Dioxide (22 - 30 mmol/L) 28 25 Anion Gap (5 - 16) 10 17 H BUN (9 - 20 mg/dL) 93 H 93 H Creatinine (0.7 - 1.2 mg/dL) 6.4 *H 6.2 *H Estimated GFR (>60 ml/min) 9 L 9 L Glucose (65 - 99 mg/dL) 103 H 87 Calcium (8.4 - 10.2 mg/dL) 8.3 L 8.2 L Phosphorus (2.5 - 4.5 mg/dL) 6.5 H 6.7 H Magnesium (1.6 - 2.3 mg/dL) 2.1 2.0 Total Bilirubin (0.2 - 1.3 mg/dL) 0.4 0.4 AST (17 - 59 U/L) 24 29 ALT (21 - 72 U/L) 24 19 L Albumin (3.5 - 5.0 g/dL) 2.9 L 2.7 L Hematology CBC w Diff NO MAN DIFF REQ NO MAN DIFF REQ WBC (4.8 - 10.8 /CUMM) 6.9 6.5 RBC (4.70 - 6.10 /CUMM) 3.58 L 3.41 L Hgb (14.0 - 18.0 G/DL) 10.5 L 10.1 L Hct (42 - 52 %) 32.3 L 31.3 L MCV (80.0 - 94.0 FL) 90.2 91.9 MCH (27.0 - 31.0 PG) 29.4 29.6 MCHC (33.0 - 37.0 G/DL) 32.6 L 32.2 L RDW (11.5 - 14.5 %) 16.3 H 16.0 H Plt Count (130 - 400 /CUMM) 226 192 MPV (7.4 - 10.4 FL) 9.5 9.8 Gran % (42.2 - 75.2 %) 65.5 65.8 Lymphocytes % (20.5 - 51.1 %) 23.8 21.6 Monocytes % (1.7 - 9.3 %) 8.4 10.8 H Eosinophils % (0 - 5 %) 2.0 1.4 Basophils % (0.0 - 2.0 %) 0.3 0.4 Absolute Granulocytes (1.4 - 6.5 /CUMM) 4.5 4.3 Absolute Lymphocytes (1.2 - 3.4 /CUMM) 1.6 1.4 Absolute Monocytes (0.10 - 0.60 /CUMM) 0.6 0.7 H Absolute Eosinophils (0.0 - 0.7 /CUMM) 0.1 0.1 Absolute Basophils (0.0 - 0.2 /CUMM) 0 0 Toxicology Random Vancomycin (ug/ml) 14.6
--- NOTE | 2017-11-15 12:03 | PN- Infect Dx ---
Subjective Subjective: Afebrile without complaints Objective Last 24 Hrs of Vital Signs/I&O Vital Signs Date Time Temp Pulse Resp B/P B/P Pulse O2 O2 Flow FiO2 Mean Ox Delivery Rate 11/15 842 68 162/80 11/15 842 68 162/80 11/15 0800 95 Nasal 6.0L Cannula 11/15 0652 97.3 52 18 138/50 95 11/15 0000 Nasal 6.0L Cannula 11/14 2234 78 98 11/14 2231 98.9 64 20 150/80 93 Nasal Cannula 11/14 2215 61 150/80 11/14 1600 94 Nasal 6.0L Cannula 11/14 1443 97.6 58 20 138/72 93 Nasal 6.0L Cannula 11/14 1303 140/50 Intake & Output 11/15 1600 11/15 0811/15 0000 Intake Total Output Total 350 600 Balance -350 -600 Number 2 Bowel Movements Output, Stool 200 Output, Urine 350 400 Physical Exam Other Physical Findings: He appears comfortable in no acute distress Lungs are clear Heart regular rhythm with no murmur Abdomen is obese, soft, nontender with positive bowel sounds Back no CVA tenderness Extremities 2+ edema both lower extremities Results Last 24 Hours of Lab Results: Laboratory Tests 11/15 641 Chemistry Sodium (137 - 145 mmol/L) 140 Potassium (3.5 - 5.1 mmol/L) 3.7 Chloride (98 - 107 mmol/L) 103 Carbon Dioxide (22 - 30 mmol/L) 29 Anion Gap (5 - 16) 8 BUN (9 - 20 mg/dL) 91 H Creatinine (0.7 - 1.2 mg/dL) 6.2 *H Estimated GFR (>60 ml/min) 9 L BUN/Creatinine Ratio (7 - 25 %) 14.7 Hematology CBC w Diff NO MAN DIFF REQ WBC (4.8 - 10.8 /CUMM) 7.4 RBC (4.70 - 6.10 /CUMM) 3.46 L Hgb (14.0 - 18.0 G/DL) 10.3 L Hct (42 - 52 %) 31.6 L MCV (80.0 - 94.0 FL) 91.4 MCH (27.0 - 31.0 PG) 29.6 MCHC (33.0 - 37.0 G/DL) 32.4 L RDW (11.5 - 14.5 %) 15.7 H Plt Count (130 - 400 /CUMM) 234 MPV (7.4 - 10.4 FL) 9.4 Gran % (42.2 - 75.2 %) 65.1 Lymphocytes % (20.5 - 51.1 %) 22.8 Monocytes % (1.7 - 9.3 %) 9.2 Eosinophils % (0 - 5 %) 2.5 Basophils % (0.0 - 2.0 %) 0.4 Absolute Granulocytes (1.4 - 6.5 /CUMM) 4.8 Absolute Lymphocytes (1.2 - 3.4 /CUMM) 1.7 Absolute Monocytes (0.10 - 0.60 /CUMM) 0.7 H Absolute Eosinophils (0.0 - 0.7 /CUMM) 0.2 Absolute Basophils (0.0 - 0.2 /CUMM) 0 Last 24 Hours of [place] Results: Blood culture November 12 negative Recent Imaging Studies: CT of the abdomen and pelvis November 14 reveals persistent anasarca, with a large amount of ascitic fluid in the abdomen and with diffuse edema of the body wall; no nephrolithiasis or urinary tract obstruction Chest x-ray November 14 continue decreased pulmonary vascular congestion Assessment/Plan ID Impression: Stable, with temperatures and white blood cell count remaining normal, on Ceftriaxone, Day 6 of treatment for Proteus and Morganella sepsis, presumably of urologic origin, given his history of urethral strictures and intermittent self straight catheterization. Have discussed with Urology, who has no plans for any urologic intervention at this time. He will require a total of 2 weeks of antibiotics, but his oral options are limited given his reported allergy to Ciprofloxacin and his renal failure, making Bactrim somewhat of a risk; therefore he should remain on Ceftriaxone as long as he requires hospitalization. His respiratory status continues to improve with significant diuresis, now on nasal oxygen. Suggestion: 1. Obtain more details regarding his Ciprofloxacin allergy 2. Further diuresis per Renal 3. Continue Ceftriaxone until discharge, with consideration of oral options based on above Dr. Oshea will be covering over the weekend
--- NOTE | 2017-11-15 12:46 | PN- Pulmonary ---
Subjective HPI/Critical Care Issues: pt seen and examined o2 requirements slowly are being reduced goal spo2 >88% Objective Current Medications: Current Medications Sig/Jose Angel Start time Last Medication Dose Route Stop Time Status Admin Acetaminophen 1,000 MG Q6P PRN 11/09 1800 AC 11/12 N/A 1 UNIT IV 1607 Acetaminophen 650 MG Q6P PRN 11/09 1645 AC 11/15 PO 0925 Alprazolam 0.25 MG DAILY PRN 11/15 0930 AC 11/15 PO 11/22 09 0925 Amlodipine Besylate 10 MG DAILY 11/11 0902 AC 11/15 PO 0843 Aspirin 81 MG DAILY 11/10 0900 AC 11/15 PO 0842 Atorvastatin Calcium 40 MG DAILY@1700 11/10 1700 AC 11/14 PO 1725 Ceftriaxone Sodium 1,000 MG DAILY 11/12 1215 AC 11/15 IV 0843 Furosemide 100 MG 7:30 AM, & 4:30 PM 11/14 0730 AC 11/15 Sodium Chloride 50 ML IV 0845 Heparin Sodium 5,000 UNIT Q8 11/09 2200 AC 11/15 (Porcine) SC 0641 Hydralazine HCl 75 MG TID 11/11 2100 AC 11/15 PO 0843 Insulin Aspart 0 TIDAC 11/10 1200 AC 11/15 SC 1206 Insulin Detemir 4 UNITS BID 11/12 0900 AC 11/15 SC 0902 Lidocaine 1 PAT DAILY@19011/10 1900 AC 11/12 EXT 2048 Magnesium Oxide 400 MG BID 11/09 2256 AC 11/15 PO 0842 Melatonin 5 MG ONCE ONE 11/14 2215 DC 11/14 PO 11/14 2216 2218 Metoprolol Tartrate 75 MG BID 11/10 09 AC 11/15 PO 0843 Patient Medication 1 ED ONE ONE 11/14 1430 DC Teaching ED 11/14 1431 Sevelamer Carbonate 1,600 MG TIDAC 11/10 1700 AC 11/15 PO 1206 Sodium Bicarbonate 1,950 MG TID 11/09 2100 AC 11/15 PO 0842 Sodium Hypochlorite 1 MEI BID 11/09 2100 AC 11/15 TOP 0844 Vital Signs & I&O Last 24 Hrs of Vitals and I&O: Vital Signs Date Time Temp Pulse Resp B/P B/P Pulse O2 O2 Flow FiO2 Mean Ox Delivery Rate 11/15 842 68 162/80 08/03 0843 68 162/80 11/15 0800 95 Nasal 6.0L Cannula 11/15 0652 97.3 52 18 138/50 95 11/15 0000 Nasal 6.0L Cannula 11/14 2234 78 98 11/14 2231 98.9 64 20 150/80 93 Nasal Cannula 11/14 2215 61 150/80 11/14 1600 94 Nasal 6.0L Cannula 11/14 1443 97.6 58 20 138/72 93 Nasal 6.0L Cannula 11/14 1303 140/50 Intake & Output 11/15 1600 11/15 0800 11/15 0000 Intake Total Output Total 350 600 Balance -350 -600 Number 2 Bowel Movements Output, Stool 200 Output, Urine 350 400 Exam Other Physical Findings: gen-awake and alert heent-high flow NC cvs-s1,s2 lungs-rare rhonchi scattered, diminished bs at bases abd-soft, bs+ ext-chronic wound/dressing Results Last 24 Hrs of Lab Results: Laboratory Tests 11/15/17 0642: Anion Gap 8, Estimated GFR 9 L, BUN/Creatinine Ratio 14.7, CBC w Diff NO MAN DIFF REQ, RBC 3.46 L, MCV 91.4, MCH 29.6, MCHC 32.4 L, RDW 15.7 H, MPV 9.4, Gran % 65.1, Lymphocytes % 22.8, Monocytes % 9.2, Eosinophils % 2.5, Basophils % 0.4, Absolute Granulocytes 4.8, Absolute Lymphocytes 1.7, Absolute Monocytes 0.7 H, Absolute Eosinophils 0.2, Absolute Basophils 0 Impression/Plan Impression/Plan Impression/Plan: Impression 62 year old man * sepsis - likely urinary source - proteus & morganella bacteremia - MRSA surveillance * acute hypoxemic respiratory failure secondary to volume overload * hx of b/l pleural effusions * CKD Plan -reduce fio2 as tolerated to achieve spo2 goal >88% -continue diuresis -improving imaging -ID consultation appreciated -cont abx - Ceftriaxone -f/u all cx -cardiology appreciated -BP control -nephrology appreciated -ins/outs DVT prophylaxis at all times Full Code Follow up with Urology to discuss further need of cystoscopy Will Sign Off for now - titrate oxygen and pt can f/u on an outpt basis to evaluate o2 needs based on necessity
[2017-11-15 14:34] VITALS: BP 122/60
[2017-11-15 21:24] VITALS: BP 142/56
[2017-11-16 06:56] VITALS: BP 126/56
[2017-11-16 08:04] LABS: ABSOLUTE BASOPHIL COUNT 0 /CUMM (0.0-0.2); ABSOLUTE EOSINOPHIL COUNT 0.2 /CUMM (0.0-0.7); ABSOLUTE GRANULOCYTE CT 4.8 /CUMM (1.4-6.5); ABSOLUTE LYMPH COUNT 1.6 /CUMM (1.2-3.4); ABSOLUTE MONOCYTE COUNT 0.6 /CUMM (0.10-0.60); BASOPHIL % 0.5 % (0.0-2.0); EOSINOPHIL % 2.9 % (0-5); GRANULOCYTE % 66.6 % (42.2-75.2); HEMATOCRIT 30.9 % (42-52); MEAN CORPUSCULAR HGB 29.8 PG (27.0-31.0); MEAN CORPUSCULAR HGB CONC 32.5 G/DL (33.0-37.0); MEAN CORPUSCULAR VOLUME 91.7 FL (80.0-94.0); MEAN PLATELET VOLUME 9.3 FL (7.4-10.4); PLATELET COUNT 217 /CUMM (130-400); RBC DISTRIBUTION WIDTH 15.6 % (11.5-14.5); RED BLOOD CELL CT 3.37 /CUMM (4.70-6.10); WHITE BLOOD CELL COUNT 7.2 /CUMM (4.8-10.8)
--- NOTE | 2017-11-16 10:04 | PN- Housestaff ---
Subjective Follow-up For: Acute hypoxic respiratory failure Tele-Events Since Last Visit: Sinus bradycardia 53-66 Subjective: Patient is examined lying in bed. No acute events overnight. Patient reports increased anxiety. He is upset as he believes that that respiratory therapy would not let him sleep at night. He is also upset that he was brought pancakes and other foods that do not follow his strict renal diet. He expresses his wish to move around more. He was hoping to leave this weekend but the medicine team explained to him that he cannot leave as he is on 6 L oxygen and his respiratory status needs to improve. He is willing to stay until Saturday to see his regular medicine team and specialists. Review of Systems Constitutional: Reports: see HPI. Objective Last 24 Hrs of Vital Signs/I&O Vital Signs Date Time Temp Pulse Resp B/P B/P Pulse O2 O2 Flow FiO2 Mean Ox Delivery Rate 11/16 1450 97.6 59 22 130/62 94 Nasal 6.0L Cannula 11/16 1337 63 128/56 11/16 0842 59 126/56 11/16 0842 59 126/56 11/16 0800 97 Nasal 6.0L Cannula 11/16 0656 98.1 59 18 126/56 90 Nasal Cannula 11/15 2128 90 Nasal 6.0L Cannula 11/15 2124 97.9 63 18 142/56 90 Nasal 6.0L Cannula 11/15 2116 63 142/56 Intake & Output 11/16 1600 11/16 0800 11/16 0000 Intake Total 620 500 360 Output Total 650 500 150 Balance -30 0 210 Intake, IV 120 Intake, Oral 500 500 360 Number 1 4 Bowel Movements Output, Urine 650 500 150 Patient 279 lb Weight Weight Bed scale Measurement Method Physical Exam General Appearance: Alert, Oriented X3, Cooperative, No Acute Distress Skin: warm/slightly diaphoretic Sepsis Skin Exam (color): Normal for Ethnicity HEENT: Atraumatic, PERRLA, EOMI Neck: Supple Cardiovascular: Normal S1, Normal S2 Lungs: Clear to Auscultation Abdomen: Soft, No Tenderness Neurological: Normal Speech Extremities: 1+ pitting edema Current Medications: Current Medications Sig/Jose Angel Start time Last Medication Dose Route Stop Time Status Admin Acetaminophen 650 MG .STK-MED ONE 11/15 2022 DC PO 11/16 2023 Acetaminophen 1,000 MG Q6P PRN 11/09 1800 AC 11/12 N/A 1 UNIT IV 1607 Acetaminophen 650 MG Q6P PRN 11/09 1645 AC 11/15 PO 2116 Alprazolam 0.25 MG BID PRN 11/16 1454 AC PO 11/23 1453 Alprazolam 0.25 MG AT BEDTIME 11/15 2099 DC 11/15 PO 11/15 2101 2116 Alprazolam 0.25 MG DAILY PRN 11/15 0930 DC 11/16 PO 11/22 0929 0856 Amlodipine Besylate 10 MG DAILY 11/11 09 AC 11/16 PO 0842 Aspirin 81 MG DAILY 11/10 0900 AC 11/16 PO 0842 Atorvastatin Calcium 40 MG DAILY@1700 11/10 1700 AC 11/15 PO 1618 Ceftriaxone Sodium 1,000 MG DAILY 11/12 1215 DC 11/16 IV 0841 Furosemide 100 MG 7:30 AM, & 4:30 PM 11/14 0730 AC 11/16 Sodium Chloride 50 ML IV 0843 Heparin Sodium 5,000 UNIT Q8 11/09 2200 AC 11/16 (Porcine) SC 1336 Hydralazine HCl 75 MG TID 11/11 2100 AC 11/16 PO 1337 Insulin Aspart 0 TIDAC 11/10 1200 AC 11/16 SC 1335 Insulin Detemir 4 UNITS BID 11/12 0900 AC 11/16 SC 0856 Lidocaine 1 PAT DAILY@19011/10 1900 AC 11/15 EXT 2119 Magnesium Oxide 400 MG BID 11/09 2256 AC 11/16 PO 0842 Metoprolol Tartrate 75 MG BID 11/10 09 AC 11/16 PO 0842 Sevelamer Carbonate 1,600 MG TIDAC 11/10 1700 AC 11/16 PO 1335 Sodium Bicarbonate 1,950 MG TID 11/09 2100 AC 11/16 PO 1335 Sodium Hypochlorite 1 MEI BID 11/09 2100 AC 11/15 TOP 0844 Last 24 Hrs of Lab/[place] Results Last 24 Hrs of Labs/Mics: Laboratory Tests 11/16/17 0614: Anion Gap 9, Estimated GFR 9 L, BUN/Creatinine Ratio 15.6, CBC w Diff NO MAN DIFF REQ, RBC 3.37 L, MCV 91.7, MCH 29.8, MCHC 32.5 L, RDW 15.6 H, MPV 9.3, Gran % 66.6, Lymphocytes % 21.7, Monocytes % 8.3, Eosinophils % 2.9, Basophils % 0.5, Absolute Granulocytes 4.8, Absolute Lymphocytes 1.6, Absolute Monocytes 0.6 , Absolute Eosinophils 0.2, Absolute Basophils 0 Assessment/Plan Assessment: 1. Sepsis of urologic origin (cultures growing Morganella and Proteus) - Cipro allergy will be considered for outpt treatment - Bactrim must also be avoided due to renal failure - Appreciate ID recs - Continue ceftriaxone until discharge 2. Acute hypoxemic respiratory failure, ascites, pleural effusions secondary to volume overload in the setting of CKD - Improving oxygen requirements - Patient now on 6L, reduce as tolerated - Continue Lasix BID 3. Acute on chronic kidney disease stage V. - Na electrolyte abnormalities resolved - Final Canoe Inspector now 6.1, (down from high 6's at admission) - Please check phosphorus levels daily 4. Elevated troponins - Expected likely due to demand ischemia in the setting of CKD stage V - Only check trops if new onset cardiac clinical symptoms 5. Possible uretral strictures - Urology will follow outpatient 6. Anixety, Restlessness, Trouble Sleeping - Continue xanax 0.25 mg BID as needed 7. Chronic conditions (HTN, anemia of chronic disease, T2DM, KALE, neuropathy) - Continue current management Problem List: 1. Acute hypoxemic respiratory failure Pain Ratin Pain Location: Not applicable Pain Goal: Remain pain free Pain Plan: Pain pathway, no opioids Tomorrow's Labs & Rationales: BEP
--- NOTE | 2017-11-16 13:24 | PN- Att Addend ---
Attending Addendum Attending Brief Note Patient seen and examined, feels okay. Now requiring 6 L of oxygen with a pendulum. Denies any other complaints. 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 Vital Signs Date Time Temp Pulse Resp B/P B/P Pulse O2 O2 Flow FiO2 Mean Ox Delivery Rate 11/16 0842 59 126/56 11/16 0842 59 126/56 11/16 0800 97 Nasal 6.0L Cannula 11/16 0656 98.1 59 18 126/56 90 Nasal Cannula 11/15 2128 90 Nasal 6.0L Cannula 11/15 2124 97.9 63 18 142/56 90 Nasal 6.0L Cannula 11/15 2116 63 142/56 11/15 1434 97.4 57 20 122/60 92 Nasal 6.0L Cannula on exam; aox3, nad. cv; s1, s2, rrr resp; decreased bs at bases. abd; soft, nt, bs+ ext; 1+ edema b/l Laboratory Tests 11/16 613 Chemistry Sodium (137 - 145 mmol/L) 141 Potassium (3.5 - 5.1 mmol/L) 3.6 Chloride (98 - 107 mmol/L) 103 Carbon Dioxide (22 - 30 mmol/L) 29 Anion Gap (5 - 16) 9 BUN (9 - 20 mg/dL) 95 H Creatinine (0.7 - 1.2 mg/dL) 6.1 *H Estimated GFR (>60 ml/min) 9 L BUN/Creatinine Ratio (7 - 25 %) 15.6 Hematology CBC w Diff NO MAN DIFF REQ WBC (4.8 - 10.8 /CUMM) 7.2 RBC (4.70 - 6.10 /CUMM) 3.37 L Hgb (14.0 - 18.0 G/DL) 10.1 L Hct (42 - 52 %) 30.9 L MCV (80.0 - 94.0 FL) 91.7 MCH (27.0 - 31.0 PG) 29.8 MCHC (33.0 - 37.0 G/DL) 32.5 L RDW (11.5 - 14.5 %) 15.6 H Plt Count (130 - 400 /CUMM) 217 MPV (7.4 - 10.4 FL) 9.3 Gran % (42.2 - 75.2 %) 66.6 Lymphocytes % (20.5 - 51.1 %) 21.7 Monocytes % (1.7 - 9.3 %) 8.3 Eosinophils % (0 - 5 %) 2.9 Basophils % (0.0 - 2.0 %) 0.5 Absolute Granulocytes (1.4 - 6.5 /CUMM) 4.8 Absolute Lymphocytes (1.2 - 3.4 /CUMM) 1.6 Absolute Monocytes (0.10 - 0.60 /CUMM) 0.6 Absolute Eosinophils (0.0 - 0.7 /CUMM) 0.2 Absolute Basophils (0.0 - 0.2 /CUMM) 0 A/P; 62 y/o M with pmh sig for PMH significant for insulin dependent DMII c/b neuropathy/retinopathy, HFpEF, CKD stage IV/V on aranesp, procrit, and sevalamer , secondary to diabetic and obstructive nephropathy, h/o urethral strictures requiring intermittent straight catheterization, CAD s/p CABG (2005), HTN, and KALE on CPAP admitted with acute hypoxemic respiratory failure, acute CHF exacerbation and volume overload and sepsis secondary to UTI and gram-negative bacteremia. Oxygenation improving gradually. Patient remained on IV diuresis. Continue to taper oxygen as he could tolerate. Patient remains on ceftriaxone per ID recommendations. Blood sugars remained stable. Creatinine remained in the 6 range. Appreciate input from all the consultants. Continue TRC nebs. Patient on heparin subcu for DVT prophylaxis. Please order PT eval.
--- NOTE | 2017-11-16 14:31 | PN- Cardiology ---
Subjective Subjective: The patient reports that he is comfortable. No chest pain. No shortness breath. No palpitations. No diaphoresis. Sinus rhythm was noted on telemetry. Objective Vital Signs and I&Os Vital Signs Date Time Temp Pulse Resp B/P B/P Pulse O2 O2 Flow FiO2 Mean Ox Delivery Rate 11/16 1337 63 128/56 / 0842 59 126/56 11/16 0842 59 126/56 11/16 0800 97 Nasal 6.0L Cannula 11/16 0656 98.1 59 18 126/56 90 Nasal Cannula 11/15 2128 90 Nasal 6.0L Cannula 11/15 212 97.9 63 18 142/56 90 Nasal 6.0L Cannula 11/15 2116 63 142/56 11/15 1434 97.4 57 20 122/60 92 Nasal 6.0L Cannula Intake & Output 11/16 1600 11/16 0800 11/16 0000 11/15 1600 11/15 0800 11/15 0000 Intake Total 620 500 360 800 Output Total 650 500 150 300 350 600 Balance -30 0 210 500 -350 -600 Intake, IV 120 60 Intake, Oral 500 500 360 740 Number 1 4 3 2 Bowel Movements Output, Stool 200 Output, Urine 650 500 150 300 350 400 Patient 279 lb Weight Weight Bed scale Measurement Method Physical Exam: Gen: NAD HEENT: normal Lungs: clear to auscultation, normal resp. effort Heart: RRR, S1, S2, no murmurs Abdomen: Soft, nontender, no masses Extremities: 1+ edema Neuro: Alert and oriented x 3, cranial nerves intact Current Medications: Current Medications Sig/Jose Angel Start time Last Medication Dose Route Stop Time Status Admin Acetaminophen 650 MG .STK-MED ONE 11/15 2022 DC PO 11/16 2023 Acetaminophen 1,000 MG Q6P PRN 11/09 1800 AC 11/12 N/A 1 UNIT IV 1607 Acetaminophen 650 MG Q6P PRN 11/09 1645 AC 11/15 PO 2115 Alprazolam 0.25 MG AT BEDTIME 11/15 2099 DC 11/15 PO 11/15 Alprazolam 0.25 MG DAILY PRN 11/15 929 AC 11/16 PO 11/22 Amlodipine Besylate 10 MG DAILY 11/11 901 AC 11/16 PO 841 Aspirin 81 MG DAILY 11/10 0900 AC 11/16 PO 0842 Atorvastatin Calcium 40 MG DAILY@1700 11/10 1700 AC 11/15 PO 1618 Ceftriaxone Sodium 1,000 MG DAILY 11/12 1215 DC 11/16 IV 0841 Furosemide 100 MG 7:30 AM, & 4:30 PM 11/14 0730 AC 11/16 Sodium Chloride 50 ML IV 0843 Heparin Sodium 5,000 UNIT Q8 11/09 2200 AC 11/16 (Porcine) SC 1336 Hydralazine HCl 75 MG TID 11/11 2100 AC 11/16 PO 1337 Insulin Aspart 0 TIDAC 11/10 1200 AC 11/16 SC 1335 Insulin Detemir 4 UNITS BID 11/12 0900 AC 11/16 SC 0856 Lidocaine 1 PAT DAILY@19011/10 1900 AC 11/15 EXT 2119 Magnesium Oxide 400 MG BID 11/09 2256 AC 11/16 PO 0842 Metoprolol Tartrate 75 MG BID 11/10 0900 AC 11/16 PO 0842 Sevelamer Carbonate 1,600 MG TIDAC 11/10 1700 AC 11/16 PO 1335 Sodium Bicarbonate 1,950 MG TID 11/09 2100 AC 11/16 PO 1335 Sodium Hypochlorite 1 MEI BID 11/09 2100 AC 11/15 TOP 0844 Results Last 48 Hrs of Labs/Mics: Laboratory Tests 11/16/17 0614: Anion Gap 9, Estimated GFR 9 L, BUN/Creatinine Ratio 15.6, CBC w Diff NO MAN DIFF REQ, RBC 3.37 L, MCV 91.7, MCH 29.8, MCHC 32.5 L, RDW 15.6 H, MPV 9.3, Gran % 66.6, Lymphocytes % 21.7, Monocytes % 8.3, Eosinophils % 2.9, Basophils % 0.5, Absolute Granulocytes 4.8, Absolute Lymphocytes 1.6, Absolute Monocytes 0.6 , Absolute Eosinophils 0.2, Absolute Basophils 0 11/15/17 0642: Anion Gap 8, Estimated GFR 9 L, BUN/Creatinine Ratio 14.7, Phosphorus 6.4 H, CBC w Diff NO MAN DIFF REQ, RBC 3.46 L, MCV 91.4, MCH 29.6, MCHC 32.4 L, RDW 15.7 H, MPV 9.4, Gran % 65.1, Lymphocytes % 22.8, Monocytes % 9.2, Eosinophils % 2.5, Basophils % 0.4, Absolute Granulocytes 4.8, Absolute Lymphocytes 1.7, Absolute Monocytes 0.7 H, Absolute Eosinophils 0.2, Absolute Basophils 0 Assessment/Plan Assessment/Plan Assessment: 1. CAD, status post CABG 2. Hypertension, now controlled 3. Diabetes mellitus 4. KALE 5. Acute on chronic HFpEF 6. Sepsis 7. Mild troponin elevation, likely secondary to demand ischemia Recommendations: * Continue IV Lasix as recommended by nephrology * Continue other cardiac medication * Check basic metabolic profile daily Continue telemetry? Yes
[2017-11-16 14:50] VITALS: BP 130/62
--- NOTE | 2017-11-16 19:58 | PN- Infect Dx ---
Subjective Subjective: This patient is a 8-year-old white male with multiple medical problems currently being followed by ID for Proteus and Morganella sepsis likely urologic origin. The patient was sleeping comfortable and had no complaints. Remains afebrile with a normal white blood cell count. Review of Systems Constitutional: Reports: see HPI. Comments: 12 point review of systems no significant findings. Objective Last 24 Hrs of Vital Signs/I&O Vital Signs Date Time Temp Pulse Resp B/P B/P Pulse O2 O2 Flow FiO2 Mean Ox Delivery Rate 11/16 1450 97.6 59 22 130/62 94 Nasal 6.0L Cannula 11/16 1337 63 128/56 11/16 0842 59 126/56 11/16 0842 59 126/56 11/16 0800 97 Nasal 6.0L Cannula 11/16 0656 98.1 59 18 126/56 90 Nasal Cannula 11/15 2128 90 Nasal 6.0L Cannula 11/15 2124 97.9 63 18 142/56 90 Nasal 6.0L Cannula 11/15 2116 63 142/56 Intake & Output 11/16 1600 11/16 0800 11/16 0000 Intake Total 620 500 360 Output Total 650 500 150 Balance -30 0 210 Intake, IV 120 Intake, Oral 500 500 360 Number 1 4 Bowel Movements Output, Urine 650 500 150 Patient 279 lb Weight Weight Bed scale Measurement Method Physical Exam Other Physical Findings: Easily arousable Pupils equal and reactive to light and accommodation equal ocular motion Neck supple no JVD no lymphadenopathy Heart regular rate and rhythm S1-S2 Lungs are clear to auscultation Jake soft nontender nondistended Bilateral lower extremity edema Results Last 24 Hours of Lab Results: Laboratory Tests 11/16 613 Chemistry Sodium (137 - 145 mmol/L) 141 Potassium (3.5 - 5.1 mmol/L) 3.6 Chloride (98 - 107 mmol/L) 103 Carbon Dioxide (22 - 30 mmol/L) 29 Anion Gap (5 - 16) 9 BUN (9 - 20 mg/dL) 95 H Creatinine (0.7 - 1.2 mg/dL) 6.1 *H Estimated GFR (>60 ml/min) 9 L BUN/Creatinine Ratio (7 - 25 %) 15.6 Hematology CBC w Diff NO MAN DIFF REQ WBC (4.8 - 10.8 /CUMM) 7.2 RBC (4.70 - 6.10 /CUMM) 3.37 L Hgb (14.0 - 18.0 G/DL) 10.1 L Hct (42 - 52 %) 30.9 L MCV (80.0 - 94.0 FL) 91.7 MCH (27.0 - 31.0 PG) 29.8 MCHC (33.0 - 37.0 G/DL) 32.5 L RDW (11.5 - 14.5 %) 15.6 H Plt Count (130 - 400 /CUMM) 217 MPV (7.4 - 10.4 FL) 9.3 Gran % (42.2 - 75.2 %) 66.6 Lymphocytes % (20.5 - 51.1 %) 21.7 Monocytes % (1.7 - 9.3 %) 8.3 Eosinophils % (0 - 5 %) 2.9 Basophils % (0.0 - 2.0 %) 0.5 Absolute Granulocytes (1.4 - 6.5 /CUMM) 4.8 Absolute Lymphocytes (1.2 - 3.4 /CUMM) 1.6 Absolute Monocytes (0.10 - 0.60 /CUMM) 0.6 Absolute Eosinophils (0.0 - 0.7 /CUMM) 0.2 Absolute Basophils (0.0 - 0.2 /CUMM) 0 Last 24 Hours of [place] Results: No new microbiology Assessment/Plan ID Impression: 62-year-old male with Proteus and Morganella sepsis. Temperatures and white blood cell count remaining normal, on Ceftriaxone Day 7 . He will require a total of 2 weeks of antibiotics, but his oral options are limited given his reported allergy to Ciprofloxacin and his renal failure, making Bactrim somewhat of a risk; therefore he should remain on Ceftriaxone as long as he requires hospitalization. His respiratory status continues to improve with significant diuresis, continues on nasal oxygen. Suggestion: Continue ceftriaxone to discharge
[2017-11-16 22:07] VITALS: BP 136/70
[2017-11-17 07:10] VITALS: BP 132/68
--- NOTE | 2017-11-17 11:23 | PN- Cardiology ---
Subjective Subjective: No chest pain. No shortness breath. No palpitations. No diaphoresis. No nausea or vomiting. 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 Objective Vital Signs and I&Os Vital Signs Date Time Temp Pulse Resp B/P B/P Pulse O2 O2 Flow FiO2 Mean Ox Delivery Rate 11/18 823 132/68 11/17 0824 132/68 11/17 0710 97.8 59 18 132/68 96 11/16 2207 98.3 65 17 136/70 94 11/16 2202 94 11/16 2151 94 Nasal 6.0L Cannula 11/16 212 65 136/70 11/16 1450 97.6 59 22 130/62 94 Nasal 6.0L Cannula 11/16 1337 63 128/56 Intake & Output 11/17 1600 11/17 0811/17 0000 11/16 1600 11/16 0811/16 0000 Intake Total 500 620 500 360 Output Total 650 500 150 Balance 500 -30 0 210 Intake, IV 500 120 Intake, Oral 500 500 360 Number 4 1 4 Bowel Movements Output, Urine 650 500 150 Patient 279 lb 279 lb Weight Weight Bed scale Measurement Method Physical Exam: Gen: NAD HEENT: normal Lungs: clear to auscultation, normal resp. effort Heart: RRR, S1, S2, no murmurs Abdomen: Soft, nontender, no masses Extremities: 1+ edema Neuro: Alert and oriented x 3, cranial nerves intact Current Medications: Current Medications Sig/Jose Angel Start time Last Medication Dose Route Stop Time Status Admin Acetaminophen 650 MG .STK-MED ONE 11/16 2134 DC PO 11/17 2135 Acetaminophen 1,000 MG Q6P PRN 11/09 1800 AC 11/12 N/A 1 UNIT IV 1607 Acetaminophen 650 MG Q6P PRN 11/09 1645 AC 11/16 PO 213 Alprazolam 0.25 MG BID PRN 11/16 1454 AC 11/16 PO 11/23 1453 2130 Alprazolam 0.25 MG DAILY PRN 11/15 0930 DC 11/16 PO 11/22 0929 0856 Amlodipine Besylate 10 MG DAILY 11/11 09 AC 11/17 PO 823 Aspirin 81 MG DAILY 11/10 09 AC 11/17 PO 823 Atorvastatin Calcium 40 MG DAILY@1700 11/10 1700 AC 11/16 PO 1734 Ceftriaxone Sodium 1,000 MG DAILY 11/12 1215 DC 11/16 IV 0841 Furosemide 100 MG 7:30 AM, & 4:30 PM 11/14 0730 AC 11/17 Sodium Chloride 50 ML IV 0824 Heparin Sodium 5,000 UNIT Q8 11/09 2200 AC 11/17 (Porcine) SC 0710 Hydralazine HCl 75 MG TID 11/11 2100 AC 11/17 PO 0824 Insulin Aspart 0 TIDAC 11/10 1200 AC 11/16 SC 1335 Insulin Detemir 4 UNITS BID 11/12 0900 AC 11/17 SC 0822 Lidocaine 1 PAT DAILY@19011/10 1900 AC 11/16 EXT 2129 Magnesium Oxide 400 MG BID 11/09 2256 AC 11/17 PO 0827 Metoprolol Tartrate 50 MG BID 11/17 2100 UNVr PO Metoprolol Tartrate 75 MG BID 11/10 0900 DC 11/16 PO 2128 Sevelamer Carbonate 1,600 MG TIDAC 11/10 1700 AC 11/17 PO 0823 Sodium Bicarbonate 1,950 MG TID 11/09 2100 AC 11/17 PO 0823 Sodium Hypochlorite 1 MEI BID 11/09 2100 AC 11/15 TOP 0844 Results Last 48 Hrs of Labs/Mics: Laboratory Tests 11/17/17 0640: Anion Gap 11, Estimated GFR 9 L, BUN/Creatinine Ratio 15.1 11/16/17 0614: Anion Gap 9, Estimated GFR 9 L, BUN/Creatinine Ratio 15.6, CBC w Diff NO MAN DIFF REQ, RBC 3.37 L, MCV 91.7, MCH 29.8, MCHC 32.5 L, RDW 15.6 H, MPV 9.3, Gran % 66.6, Lymphocytes % 21.7, Monocytes % 8.3, Eosinophils % 2.9, Basophils % 0.5, Absolute Granulocytes 4.8, Absolute Lymphocytes 1.6, Absolute Monocytes 0.6 , Absolute Eosinophils 0.2, Absolute Basophils 0 Assessment/Plan Assessment/Plan Assessment: 1. CAD, status post CABG 2. Hypertension, now controlled 3. Diabetes mellitus 4. KALE 5. Acute on chronic HFpEF 6. Sepsis 7. Mild troponin elevation, likely secondary to demand ischemia Recommendations: * Continue IV Lasix as recommended by nephrology * Continue other cardiac medication * Check basic metabolic profile daily * Decrease metoprolol to 50 mg twice daily given sinus bradycardia Continue telemetry? Yes
[2017-11-17 14:28] VITALS: BP 142/60
--- NOTE | 2017-11-17 17:06 | PN- Housestaff ---
Subjective Follow-up For: Sepsis of urological origin secondary to Morganella and Proteus Acute hypoxemic respiratory failure secondary to volume overload in setting of chronic kidney disease improved Acute on chronic kidney disease stage V Demand ischemia leading to elevated troponin Review of Systems Constitutional: Denies: no symptoms. Objective Last 24 Hrs of Vital Signs/I&O Vital Signs Date Time Temp Pulse Resp B/P B/P Pulse O2 O2 Flow FiO2 Mean Ox Delivery Rate 11/17 1428 97.7 60 20 142/60 92 Nasal 4.0L Cannula 11/17 0824 132/68 11/17 0824 132/68 11/17 08 94 Nasal 6.0L Cannula 11/17 0710 97.8 59 18 132/68 96 11/16 2207 98.3 65 17 136/70 94 11/16 220 94 11/16 2151 94 Nasal 6.0L Cannula 11/16 2126 65 136/70 Intake & Output 11/17 1600 11/17 0811/17 0000 Intake Total 570 500 Output Total Balance 570 500 Intake, IV 90 500 Intake, Oral 480 Number 4 Bowel Movements Patient 126.722 kg Weight Physical Exam General Appearance: Alert, Oriented X3, Cooperative, No Acute Distress Skin: pale, multiple hemangiomas, Cardiovascular: Normal S1, Normal S2, murmur present Lungs: mild basilar crakles Abdomen: distended Extremities: No Cyanosis, mild bilateral edema, left foot ulcer - dressed Vascular: weak pulses Current Medications: Current Medications Sig/Jose Angel Start time Last Medication Dose Route Stop Time Status Admin Acetaminophen 650 MG .STK-MED ONE 11/16 213 DC PO 11/16 213 Acetaminophen 1,000 MG Q6P PRN 11/09 1800 AC 11/12 N/A 1 UNIT IV 1607 Acetaminophen 650 MG Q6P PRN 11/09 1645 AC 11/16 PO 213 Alprazolam 0.25 MG BID PRN 11/16 1454 AC 11/16 PO 11/23 1453 2130 Amlodipine Besylate 10 MG DAILY 11/11 901 AC 11/17 PO 08 Aspirin 81 MG DAILY 11/10 09 AC 11/17 PO 08 Atorvastatin Calcium 40 MG DAILY@1700 11/10 1700 AC 11/17 PO 1700 Furosemide 100 MG 7:30 AM, & 4:30 PM 11/14 07 AC 11/17 Sodium Chloride 50 ML IV 1700 Heparin Sodium 5,000 UNIT Q8 11/09 2200 AC 11/17 (Porcine) SC 1415 Hydralazine HCl 75 MG TID 11/11 2100 AC 11/17 PO 1404 Insulin Aspart 0 TIDAC 11/10 1200 AC 11/17 SC 1238 Insulin Detemir 4 UNITS BID 11/12 0900 AC 11/17 SC 0822 Lidocaine 1 PAT DAILY@1900 11/10 1900 AC 11/16 EXT 2129 Magnesium Oxide 400 MG BID 11/09 2256 AC 11/17 PO 0827 Metoprolol Tartrate 50 MG BID 11/17 2100 AC PO Metoprolol Tartrate 75 MG BID 11/10 0900 DC 11/16 PO 2128 Sevelamer Carbonate 1,600 MG TIDAC 11/10 1700 AC 11/17 PO 1700 Sodium Bicarbonate 1,950 MG TID 11/09 2100 AC 11/17 PO 1404 Sodium Hypochlorite 1 MIE BID 11/09 2100 AC 11/17 TOP 0900 Last 24 Hrs of Lab/[place] Results Last 24 Hrs of Labs/Mics: Laboratory Tests 11/17/17 0640: Anion Gap 11, Estimated GFR 9 L, BUN/Creatinine Ratio 15.1 Assessment/Plan Assessment: Vital signs-temperature 97.7, pulse 60, respiratory 20, blood pressure 142/60, SPO2 98% on 1 4 L of oxygen. Intake/output-1070/150 Blood workup showed hemoglobin 10.1, hematocrit 30.9, platelet count 217, sodium 143, potassium 3.6, chloride 102, carbon dioxide 30, anion gap 11, BUN 92, creatinine 6.1, GFR 9 Problem list - Assessment and plan- * Patient is having positive fluid balance. Advised to decrease fluid intake and strict intake output charting * We will continue IV Lasix to maintain negative fluid balance * According to the applicator sprayer will continue ceftriaxone until the time of discharge. Patient is allergic to ciprofloxacin and he cannot give Bactrim because of the renal failure. We will follow ID recommendation. * Patient was having bradycardia on telemetry monitoring. Discussed with the video editing internship advised to decrease the metoprolol to 50 mg twice daily. * Diet-consistent carbohydrate diet 2 * DVT prophylaxis-heparin * CODE STATUS full code Problem List: 1. Acute hypoxemic respiratory failure 2. Sepsis 3. Pneumonia 4. Diabetes 5. Bilateral pleural effusion 6. Anasarca Pain Ratin Pain Location: n/a Pain Goal: Remain pain free Pain Plan: Avoid NSAIDs Tomorrow's Labs & Rationales: BP, magnesium, phosphorus for follow-up DVT/Prophylaxis: pharmacological
[2017-11-17 22:03] VITALS: BP 126/84
[2017-11-18 06:46] VITALS: BP 136/70
--- NOTE | 2017-11-18 09:59 | PN- Housestaff ---
GutierrezeulogioCody 11/18/17 0959: Subjective Follow-up For: Acute Hypoxic Resp Failure Tele-Events Since Last Visit: 4 AM - 6 AM Sinus Torito 55-60 Subjective: Patient is examined lying in bed. No acute events overnight. No events per nursing. Patient expresses his will to leave hospital and go home to "live a normal life" and be independent. He reports that he has been getting up and walking around his room. Review of Systems Constitutional: Reports: see HPI. Objective Last 24 Hrs of Vital Signs/I&O Vital Signs Date Time Temp Pulse Resp B/P B/P Pulse O2 O2 Flow FiO2 Mean Ox Delivery Rate 11/19 0000 Nasal 5.0L Cannula 11/18 2336 98.4 67 20 154/70 91 Nasal 6.0L Cannula 11/18 2149 64 116/52 11/18 2148 64 116/52 11/18 1644 87 Nasal 4.0L Cannula 11/18 1500 98.1 64 20 116/52 95 Nasal Cannula 11/18 1424 62 138/60 / 1342 88 Nasal 4.0L Cannula 11/18 1157 93 Nasal 5.0L Cannula 11/18 1030 95 Nasal 6.0L Cannula 11/18 1000 89 Nasal 6.0L Cannula 11/18 0830 144/62 08/06 0828 67 144/62 08/06 0827 67 144/62 /06 0800 Nasal 6.0L Cannula 11/18 0646 98.4 69 20 136/70 91 Nasal 6.0L Cannula Intake & Output 11/19 0800 08/07 0000 06 1600 Intake Total 300 470 Output Total 200 870 Balance 100 -400 Intake, IV 70 Intake, Oral 300 400 Number 2 1 Bowel Movements Output, Urine 200 870 Physical Exam General Appearance: Alert, Oriented X3, Cooperative, Mild Distress Skin Temp/Moisture Exam: Warm/Dry Sepsis Skin Exam (color): Normal for Ethnicity HEENT: Atraumatic, PERRLA, EOMI Neck: Supple Cardiovascular: Regular Rate, Normal S1, Normal S2 Lungs: Coarse breath sounds bilaterally Abdomen: Normal Bowel Sounds, Soft, No Tenderness Extremities: 1+ edema lower ext BL Current Medications: Current Medications Sig/Jose Angel Start time Last Medication Dose Route Stop Time Status Admin Acetaminophen 1,000 MG Q6P PRN 11/09 1800 AC 11/12 N/A 1 UNIT IV 1607 Acetaminophen 650 MG Q6P PRN 11/09 1645 AC 11/18 PO 2200 Alprazolam 0.25 MG TID 11/18 2099 AC 11/18 PO 11/25 2058 220 Alprazolam 0.25 MG BID PRN 11/16 1454 DC 11/18 PO 11/23 1453 0825 Amlodipine Besylate 10 MG DAILY 11/11 09 AC 11/18 PO 0830 Aspirin 81 MG DAILY 11/10 09 AC 11/18 PO 0827 Atorvastatin Calcium 40 MG DAILY@1700 11/10 1700 AC 11/18 PO 1730 Ceftriaxone Sodium 1,000 MG DAILY 11/19 899 DC IV Ceftriaxone Sodium 1,000 MG DAILY 11/18 1030 AC 11/18 IV 1215 Furosemide 100 MG 7:30 AM, & 4:30 PM 11/14 729 DC 11/18 Sodium Chloride 50 ML IV 0831 Heparin Sodium 5,000 UNIT Q8 11/09 2200 AC 11/18 (Porcine) SC 2150 Hydralazine HCl 75 MG TID 11/11 2099 AC 11/18 PO 2149 Insulin Aspart 0 TIDAC 11/10 1200 AC 11/18 SC 1215 Insulin Detemir 4 UNITS BID 11/12 09 AC 11/18 SC 2257 Lidocaine 1 PAT DAILY@11/10 190 AC 11/18 EXT 1900 Magnesium Oxide 400 MG BID 11/09 2256 AC 11/18 PO 2152 Metolazone 5 MG 11/20 0900 DC PO Metolazone 5 MG MoWeFr@0811/20 0800 AC PO Metoprolol Tartrate 50 MG BID 11/17 2100 AC 11/18 PO 2148 Sevelamer Carbonate 2,400 MG TIDAC 11/18 1700 AC 11/18 PO 1730 Sevelamer Carbonate 1,600 MG TIDAC 11/10 1700 DC 11/18 PO 1211 Sodium Bicarbonate 1,950 MG TID 11/09 2100 AC 11/18 PO 2149 Sodium Hypochlorite 1 MEI BID 11/09 2100 AC 11/17 TOP 0900 Torsemide 80 MG DAILY 11/19 899 DC PO Torsemide 80 MG BID 11/19 899 AC PO Torsemide 40 MG 1400 11/18 1445 DC 11/18 PO 11/18 1446 1730 Torsemide 40 MG 1400 11/18 1400 DC 11/18 PO 11/18 1401 1425 Last 24 Hrs of Lab/[place] Results Last 24 Hrs of Labs/Mics: Laboratory Tests 11/18/17 0649: Phosphorus 6.0 H Assessment/Plan Assessment: Assessment: 1. Sepsis of urologic origin (cultures growing Morganella and Proteus) - Cipro allergy will be considered before outpt treatment - Bactrim must also be avoided due to renal failure - Appreciate ID recs - Continue ceftriaxone until discharge then change to cipro 500 mg on last day of hospital admission for a 2 week course per ID 2. Acute hypoxemic respiratory failure, ascites, pleural effusions secondary to volume overload in the setting of CKD - Improving oxygen requirements - Patient now on 5L, reduce as tolerated - Continue ambulation 3. Acute on chronic kidney disease stage V. - Electrolyte abnormalities resolved - Scada Technician now 6.1, (down from high 6's at admission) - Please check phosphorus levels daily - Increase sevelamer to 2400 g PO 3 times daily - Change Lasix to Torsemide 80 mg PO BID - Add metolazone prior to am torsemide dose 4. Elevated troponins - Expected likely due to demand ischemia in the setting of CKD stage V - Only check trops if new onset cardiac clinical symptoms 5. Possible uretral strictures - Urology will follow outpatient 6. Anixety, Restlessness, Trouble Sleeping - Continue xanax 0.25 mg BID as needed 7. Chronic conditions (HTN, anemia of chronic disease, T2DM, KALE, neuropathy) - Continue current management Problem List: 1. Acute hypoxemic respiratory failure Pain Ratin Pain Location: None Pain Goal: Remain pain free Pain Plan: Per pathway, no opiods Tomorrow's Labs & Rationales: CBC, BEP Norm CASEY,[place] 11/18/17 1054: Attending MD Review Statement Attending Statement Attending MD Statement: examined this patient, discuss w/resident/PA/HYDROELECTRIC PLANT ELECTRICAL ENGINEER, agreed w/resident/PA/HYDROELECTRIC PLANT ELECTRICAL ENGINEER, reviewed EMR data (avail), discussed with nursing, discussed with case mgmt, amended to note Attending Assessment/Plan: Patient seen and examined. Resting comfortably not in acute distress. Over the weekend was reported to be bradycardic.Metoprolol dose was decreased. No events on telemetry overnight. Remains pain-free. Denies shortness of breath or cough. Patient is very eager to be discharged home. He no longer wants to remain in the hospital. He however requires oxygen supplementation and has been requiring high doses of intravenous diuretics to help maintain a negative fluid balance. Case was discussed in detail with the pulmonology and nephrology service. Currently has been weaned off the oxygen dependent and is maintaining saturation on 5 L of oxygen. Will check his ambulatory pulse ox at rest and with ambulation. We will also transition him from IV Lasix to torsemide 80 mg orally twice daily. If he maintains a negative fluid balance with stable oxygen level he may be discharged tomorrow. It is pertinent that patient follow-up with his outpatient traditional maori health practitioner for planning of the initiation of renal replacement therapy. Will follow recommendations of the ID service regarding his antibiotic therapy.
--- NOTE | 2017-11-18 10:09 | PN- Pulmonary ---
Subjective HPI/Critical Care Issues: pt seen and examined feels overall well he requires 6L via nasal cannula - Oxymizer pendant no n/v/d/c no waldrop no cp at rest he is not dyspneic he has not ambualted at this time Objective Current Medications: Current Medications Sig/Jose Angel Start time Last Medication Dose Route Stop Time Status Admin Acetaminophen 650 MG .STK-MED ONE 11/18 2103 DC PO 11/17 2104 Acetaminophen 1,000 MG Q6P PRN 11/09 1800 AC 11/12 N/A 1 UNIT IV 1607 Acetaminophen 650 MG Q6P PRN 11/09 1645 AC 11/17 PO 2107 Alprazolam 0.25 MG BID PRN 11/16 1454 AC 11/18 PO 11/23 1453 0825 Amlodipine Besylate 10 MG DAILY 11/11 09 AC 11/18 PO 0830 Aspirin 81 MG DAILY 11/10 09 AC 11/18 PO 0827 Atorvastatin Calcium 40 MG DAILY@1700 11/10 1700 AC 11/17 PO 1700 Ceftriaxone Sodium 1,000 MG DAILY 11/19 899 AC IV Furosemide 100 MG 7:30 AM, & 4:30 PM 11/14 0730 AC 11/18 Sodium Chloride 50 ML IV 0831 Heparin Sodium 5,000 UNIT Q8 11/09 2200 AC 11/18 (Porcine) SC 0540 Hydralazine HCl 75 MG TID 11/11 2099 AC 11/18 PO 0828 Insulin Aspart 0 TIDAC 11/10 1200 AC 11/17 SC 1238 Insulin Detemir 4 UNITS BID 11/12 0900 AC 11/17 SC 2107 Lidocaine 1 PAT DAILY@19011/10 1900 AC 11/16 EXT 2129 Magnesium Oxide 400 MG BID 11/09 2256 AC 11/18 PO 0825 Metoprolol Tartrate 50 MG BID 11/17 2100 AC 11/18 PO 0827 Metoprolol Tartrate 75 MG BID 11/10 0900 DC 11/16 PO 2128 Sevelamer Carbonate 1,600 MG TIDAC 11/10 1700 AC 11/18 PO 0828 Sodium Bicarbonate 1,950 MG TID 11/09 2100 AC 11/18 PO 0828 Sodium Hypochlorite 1 MEI BID 11/09 2100 AC 11/17 TOP 0900 Vital Signs & I&O Last 24 Hrs of Vitals and I&O: Vital Signs Date Time Temp Pulse Resp B/P B/P Pulse O2 O2 Flow FiO2 Mean Ox Delivery Rate 11/18 0830 144/62 11/18 0828 67 144/62 11/18 0827 67 144/62 11/18 08 Nasal 6.0L Cannula 11/18 0646 98.4 69 20 136/70 91 Nasal 6.0L Cannula 11/17 2203 98.3 68 20 126/84 92 11/17 2106 73 126/84 11/17 2106 73 126/83 11/17 2049 Nasal 6.0L Cannula 11/17 1600 96 Nasal 6.0L Cannula 11/17 1428 97.7 60 20 142/60 92 Nasal 4.0L Cannula Intake & Output 11/18 0811/18 0000 Intake Total 200 150 Output Total 300 750 Balance -100 -600 Intake, Oral 200 150 Output, Urine 300 750 Patient 279 lb Weight Exam Other Physical Findings: [id number] heent-nasal cannula - oxymizer pendant @ 6L cvs-s1,s2 lungs-rare rhonchi abd-soft, bs+ ext-chronic wounds Results Last 24 Hrs of Lab Results: Laboratory Tests 11/18/17 0649: Phosphorus 6.0 H Impression/Plan Impression/Plan Impression/Plan: Impression 62 year old man * sepsis - likely urinary source - proteus & morganella bacteremia - MRSA surveillance * acute hypoxemic respiratory failure secondary to volume overload * hx of b/l pleural effusions * CKD Plan -reduce fio2 as tolerated to achieve spo2 goal >86-88% - patient preference -continue diuresis, ins/outs -cont abx per ID -cardiology, nephrology, urology follow up DVT prophylaxis at all times Full Code Discussed oxygen requirements with patient and medical team. We will titrate down fio2 requirements to achieve an spo2 goal of >86-88% Patient voices clear concerns for discharge - he needs to be ambulated and oxygen requirements also need to be assessed on exertion for safety.
--- NOTE | 2017-11-18 10:30 | PN- Infect Dx ---
Subjective Subjective: Afebrile without complaints. Objective Last 24 Hrs of Vital Signs/I&O Vital Signs Date Time Temp Pulse Resp B/P B/P Pulse O2 O2 Flow FiO2 Mean Ox Delivery Rate 11/19 0730 144/62 11/19 827 67 144/62 11/18 08 67 144/62 11/18 08 Nasal 6.0L Cannula 11/18 0646 98.4 69 20 136/70 91 Nasal 6.0L Cannula 11/17 2203 98.3 68 20 126/84 92 11/17 2106 73 126/84 11/17 2106 73 126/83 11/17 2049 Nasal 6.0L Cannula 11/17 1600 96 Nasal 6.0L Cannula 11/17 1428 97.7 60 20 142/60 92 Nasal 4.0L Cannula Intake & Output 11/18 1600 11/18 0811/18 0000 Intake Total 200 150 Output Total 300 750 Balance -100 -600 Intake, Oral 200 150 Output, Urine 300 750 Patient 279 lb Weight Physical Exam Other Physical Findings: He appears comfortable in no acute distress, now on nasal oxygen Lungs are clear Heart regular rhythm with no murmur Abdomen is obese, soft, nontender with positive bowel sounds Extremities trace edema both lower extremities Results Last 24 Hours of Lab Results: Laboratory Tests 11/18 648 Chemistry Phosphorus (2.5 - 4.5 mg/dL) 6.0 H Last 24 Hours of [place] Results: No recent cultures Assessment/Plan ID Impression: Stable, with temperatures and white blood cell count remaining normal. Ceftriaxone was apparently not renewed 2 days ago; therefore it appears that he may have missed 2 doses after having received 6 days of treatment for Proteus and Morganella sepsis, presumably of urologic origin. He will require a total of 2 weeks of antibiotics, which can be completed with an oral agent. He reports fevers and chills with Ciprofloxacin 10 years prior to admission; therefore not clear that this represents an allergy and should be able to try this in the hospital prior to discharge. Another option would be Bactrim, but, given his renal failure, it would be best to avoid this. Suggestion: 1. Continue Ceftriaxone (have renewed it) until discharge, at which point would begin Ciprofloxacin 500 mg p.o. every 24 hours (with the first dose in the hospital) to complete a two-week course of antibiotics
--- NOTE | 2017-11-18 12:12 | PN- Nephrology ---
Assessment/Plan Nephrology Assessment: 1. CKD V 2/2 DM with renal fx stable at or near baseline 2. UTI with polymicrbial bacteremia 3. Volume overload - improved but still present 4. Hypernatremia - resolved 5. Hyperphosphatemia Suggestion: 1. Would change parenteral diuretic regimen to oral torsemide 80 mg p.o. twice daily; if needed, can add a dose of metolazone 5 mg p.o. qMWF prior to a.m. torsemide dose 2. Increase sevelamer to 2400 g p.o. 3 times daily with meals 3. Antibiotic therapy per ID 4. Mobilize 5. I am not convinced he will be a good outpatient peritoneal dialysis candidate but this will need to be decided by the patient and his search engine optimization manager Dr. Lizeth Pradhan after discharge Subjective Subjective: Denies any pain, shortness of breath or symptoms referable to the urinary tract. He remains afebrile with normal WBC. Creatinine stable and he remains hypophosphatemic. Objective Vital Signs and I&Os Vital Signs Date Time Temp Pulse Resp B/P B/P Pulse O2 O2 Flow FiO2 Mean Ox Delivery Rate 11/18 1157 93 Nasal 5.0L Cannula 11/18 1030 95 Nasal 6.0L Cannula 11/18 1000 89 Nasal 6.0L Cannula 11/18 0830 144/62 11/18 0828 67 144/62 11/18 0827 67 144/62 11/18 0800 Nasal 6.0L Cannula 11/18 0646 98.4 69 20 136/70 91 Nasal 6.0L Cannula 11/17 2203 98.3 68 20 126/84 92 11/17 2106 73 126/84 11/17 2106 73 126/83 11/17 2049 Nasal 6.0L Cannula 11/17 1600 96 Nasal 6.0L Cannula 11/17 1428 97.7 60 20 142/60 92 Nasal 4.0L Cannula Intake & Output 11/18 1600 11/18 0400 11/17 1600 11/17 0400 11/16 0400 Intake Total 648 656 5407 1120 360 Output Total 987 430 0187 150 Balance -450 -600 1070 -30 210 Intake, IV 70 590 120 Intake, Oral 200 895 367 8707 360 Number 4 1 4 Bowel Movements Output, Urine 611 548 5349 150 Patient 279 lb 279 lb 279 lb Weight Weight Bed scale Measurement Method Physical Exam: General: Well-developed, WM in NAD Skin: No rash or jaundice HEENT: Conjunctivae pink, sclerae anicteric, mucous membranes dry Neck: Without masses or thyromegaly, no supraclavicular or cervical adenopathy Chest: Clear to P&A Heart: Regular rate and rhythm without S3 or rub Abdomen: Soft, nontender; no masses or organomegally Extremities: Without cyanosis; +edema, ? less Neuro: Cognitively intact, no focal findings, no asterixis or myoclonus Results Pertinent Lab Results: Laboratory Tests 11/18 11/17 11/16 0649 0640 0614 Chemistry Sodium (137 - 145 mmol/L) 143 141 Potassium (3.5 - 5.1 mmol/L) 3.6 3.6 Chloride (98 - 107 mmol/L) 102 103 Carbon Dioxide (22 - 30 mmol/L) 30 29 Anion Gap (5 - 16) 11 9 BUN (9 - 20 mg/dL) 92 H 95 H Creatinine (0.7 - 1.2 mg/dL) 6.1 *H 6.1 *H Estimated GFR (>60 ml/min) 9 L 9 L BUN/Creatinine Ratio (7 - 25 %) 15.1 15.6 Phosphorus (2.5 - 4.5 mg/dL) 6.0 H Hematology CBC w Diff NO MAN DIFF REQ WBC (4.8 - 10.8 /CUMM) 7.2 RBC (4.70 - 6.10 /CUMM) 3.37 L Hgb (14.0 - 18.0 G/DL) 10.1 L Hct (42 - 52 %) 30.9 L MCV (80.0 - 94.0 FL) 91.7 MCH (27.0 - 31.0 PG) 29.8 MCHC (33.0 - 37.0 G/DL) 32.5 L RDW (11.5 - 14.5 %) 15.6 H Plt Count (130 - 400 /CUMM) 217 MPV (7.4 - 10.4 FL) 9.3 Gran % (42.2 - 75.2 %) 66.6 Lymphocytes % (20.5 - 51.1 %) 21.7 Monocytes % (1.7 - 9.3 %) 8.3 Eosinophils % (0 - 5 %) 2.9 Basophils % (0.0 - 2.0 %) 0.5 Absolute Granulocytes (1.4 - 6.5 /CUMM) 4.8 Absolute Lymphocytes (1.2 - 3.4 /CUMM) 1.6 Absolute Monocytes (0.10 - 0.60 /CUMM) 0.6 Absolute Eosinophils (0.0 - 0.7 /CUMM) 0.2 Absolute Basophils (0.0 - 0.2 /CUMM) 0
[2017-11-18 15:00] VITALS: BP 116/52
[2017-11-18] MEDS ORDERED: METOPROLOL TART50 M1 PO (16:35)
[2017-11-18] MEDS ORDERED: ASPIRIN81 M4 PO (16:35)
[2017-11-18] MEDS ORDERED: HYDRALAZINE HCL25 M1 PO (16:35)
[2017-11-18] MEDS ORDERED: TORSEMIDE20 M1 PO (16:35)
[2017-11-18] MEDS ORDERED: RENVELA800 M1 PO (16:35)
[2017-11-18] MEDS ORDERED: METOLAZONE5 M1 PO (16:35)
--- NOTE | 2017-11-18 17:51 | PN- Cardiology ---
Subjective Subjective: Feeling well. Shortness of breath is improving. No chest pain. No palpitations. No diaphoresis. No nausea or vomiting. Objective Vital Signs and I&Os Vital Signs Date Time Temp Pulse Resp B/P B/P Pulse O2 O2 Flow FiO2 Mean Ox Delivery Rate 11/18 1644 87 Nasal 4.0L Cannula 11/18 1500 98.1 64 20 116/52 95 Nasal Cannula 11/18 1424 62 138/60 11/18 1342 88 Nasal 4.0L Cannula 11/18 1157 93 Nasal 5.0L Cannula 11/18 1030 95 Nasal 6.0L Cannula 11/18 1000 89 Nasal 6.0L Cannula 11/18 0830 144/62 11/18 0828 67 144/62 11/18 0827 67 144/62 11/18 0800 Nasal 6.0L Cannula 11/18 0646 98.4 69 20 136/70 91 Nasal 6.0L Cannula 11/17 2203 98.3 68 20 126/84 92 11/17 210 73 126/84 11/17 2106 73 126/83 11/17 2049 Nasal 6.0L Cannula Intake & Output 11/18 1600 11/18 0800 11/18 0000 11/17 1600 11/17 0800 11/17 0000 Intake Total 470 200 150 570 500 Output Total 870 300 750 Balance -400 -100 -600 570 500 Intake, IV 70 90 500 Intake, Oral 400 200 150 480 Number 1 4 Bowel Movements Output, Urine 870 300 750 Patient 279 lb 279 lb Weight Physical Exam: Gen: NAD HEENT: normal Lungs: clear to auscultation, normal resp. effort Heart: RRR, S1, S2, no murmurs Abdomen: Soft, nontender, no masses Extremities: 1+ edema Neuro: Alert and oriented x 3, cranial nerves intact Current Medications: Current Medications Sig/Jose Angel Start time Last Medication Dose Route Stop Time Status Admin Acetaminophen 650 MG .STK-MED ONE 11/18 2103 DC PO 11/17 2104 Acetaminophen 1,000 MG Q6P PRN 11/09 1800 AC 11/12 N/A 1 UNIT IV 1607 Acetaminophen 650 MG Q6P PRN 11/09 1645 AC 11/17 PO 210 Alprazolam 0.25 MG TID 11/18 2100 AC PO 11/25 205 Alprazolam 0.25 MG BID PRN 11/16 1454 DC 08/06 PO 11/23 1453 0825 Amlodipine Besylate 10 MG DAILY 11/11 0902 AC 11/18 PO 0830 Aspirin 81 MG DAILY 11/10 09 AC 11/18 PO 0827 Atorvastatin Calcium 40 MG DAILY@1700 11/10 1700 AC 11/18 PO 1730 Ceftriaxone Sodium 1,000 MG DAILY 11/19 09 DC IV Ceftriaxone Sodium 1,000 MG DAILY 11/18 1030 AC 11/18 IV 1215 Furosemide 100 MG 7:30 AM, & 4:30 PM 11/14 07 DC 11/18 Sodium Chloride 50 ML IV 0831 Heparin Sodium 5,000 UNIT Q8 11/09 2200 AC 11/18 (Porcine) SC 1427 Hydralazine HCl 75 MG TID 11/11 2100 AC 11/18 PO 1424 Insulin Aspart 0 TIDAC 11/10 1200 AC 11/18 SC 1215 Insulin Detemir 4 UNITS BID 11/12 0900 AC 11/17 SC 2107 Lidocaine 1 PAT DAILY@1900 11/10 1900 AC 11/16 EXT 2129 Magnesium Oxide 400 MG BID 11/09 2256 AC 11/18 PO 0825 Metolazone 5 MG 11/20 0900 DC PO Metolazone 5 MG MoWeFr@0811/20 0800 AC PO Metoprolol Tartrate 50 MG BID 11/17 2100 AC 11/18 PO 0827 Sevelamer Carbonate 2,400 MG TIDAC 11/18 1700 AC 11/18 PO 1730 Sevelamer Carbonate 1,600 MG TIDAC 11/10 1700 DC 11/18 PO 1211 Sodium Bicarbonate 1,950 MG TID 11/09 2100 AC 11/18 PO 1422 Sodium Hypochlorite 1 MEI BID 11/09 2100 AC 11/17 TOP 0900 Torsemide 80 MG DAILY 11/19 899 DC PO Torsemide 80 MG BID 11/19 899 AC PO Torsemide 40 MG 1400 11/18 1445 DC 11/18 PO 11/18 1446 1730 Torsemide 40 MG 1400 11/18 1400 DC 11/18 PO 11/18 1401 1425 Results Last 48 Hrs of Labs/Mics: Laboratory Tests 11/18/17 0649: Phosphorus 6.0 H 11/17/17 0640: Anion Gap 11, Estimated GFR 9 L, BUN/Creatinine Ratio 15.1 Assessment/Plan Assessment/Plan Assessment: 1. CAD, status post CABG 2. Hypertension, now controlled 3. Diabetes mellitus 4. KALE 5. Acute on chronic HFpEF 6. Sepsis 7. Mild troponin elevation, likely secondary to demand ischemia Recommendations: * Continue Oral torsemide and metolazone as recommended by Nephrology * Continue other cardiac medication * Check basic metabolic profile daily Continue telemetry? Yes
[2017-11-18 23:36] VITALS: BP 154/70
[2017-11-19 06:55] VITALS: BP 142/64
--- NOTE | 2017-11-19 07:29 | PN- Housestaff ---
Cody Murray 11/19/17 0729: Subjective Follow-up For: Acute Hypoxic Resp Failure Subjective: Patient is examined lying in bed. No acute events overnight. No events per nursing. Patient expresses his will to leave hospital today. Medical teams advised him that he should not leave due to the risks to his health but he is adamant as he has financial issues to take care of. Review of Systems Constitutional: Reports: see HPI. Objective Last 24 Hrs of Vital Signs/I&O Vital Signs Date Time Temp Pulse Resp B/P B/P Pulse O2 O2 Flow FiO2 Mean Ox Delivery Rate 11/19 1457 98.1 63 20 140/68 93 Nasal 4.0L Cannula 11/19 1328 142/64 11/19 1200 93 Nasal 4.0L Cannula 11/19 0815 64 142/64 11/19 0815 142/64 11/19 0814 142/64 11/19 0800 93 Nasal 5.0L Cannula 11/19 0655 98.7 64 20 142/64 93 Nasal 4.0L Cannula Intake & Output 11/20 0800 11/20 0000 11/19 1600 Intake Total 480 Output Total 450 Balance 30 Intake, Oral 480 Number 1 Bowel Movements Output, Urine 450 Physical Exam General Appearance: Alert, Oriented X3, Cooperative, Mild Distress Skin Temp/Moisture Exam: Warm/Dry Sepsis Skin Exam (color): Normal for Ethnicity HEENT: Atraumatic, PERRLA, EOMI Neck: Supple Cardiovascular: Normal S1, Normal S2 Lungs: Coarse breath sound BL Abdomen: Normal Bowel Sounds, Soft, No Tenderness Extremities: 1+ edema lower ext BL Current Medications: Current Medications Sig/Jose Angel Start time Last Medication Dose Route Stop Time Status Admin Acetaminophen 1,000 MG Q6P PRN 11/09 1800 DCD 11/12 N/A 1 UNIT IV 1607 Acetaminophen 650 MG Q6P PRN 11/09 1645 DCD 11/19 PO 1330 Alprazolam 0.25 MG TID 11/18 2100 DCD 11/19 PO 11/25 2058 1329 Amlodipine Besylate 10 MG DAILY 11/11 09 DCD 11/19 PO 0814 Aspirin 81 MG DAILY 11/10 09 DCD 11/19 PO 0814 Atorvastatin Calcium 40 MG DAILY@1700 11/10 1700 DCD 11/18 PO 1730 Ceftriaxone Sodium 1,000 MG DAILY 11/18 1030 DC 11/19 IV 0818 Ciprofloxacin 500 MG ONCE ONE 11/19 1100 DC 11/19 PO 11/19 1101 1328 Heparin Sodium 5,000 UNIT Q8 11/09 2200 DCD 11/19 (Porcine) SC 1332 Hydralazine HCl 75 MG TID 11/11 2100 DCD 11/19 PO 1328 Insulin Aspart 0 TIDAC 11/10 1200 DCD 11/19 SC 1227 Insulin Detemir 4 UNITS BID 11/12 0900 DCD 11/19 SC 0816 Lidocaine 1 PAT DAILY@1900 11/10 1900 DCD 11/18 EXT 1900 Magnesium Oxide 400 MG BID 11/09 2256 DCD 11/19 PO 0814 Metolazone 5 MG 11/20 0900 DC PO Metolazone 5 MG MoWeFr@11/20 0800 DCD PO Metoprolol Tartrate 50 MG BID 11/17 2100 DCD 11/19 PO 0815 Sevelamer Carbonate 2,400 MG TIDAC 11/18 1700 DCD 11/19 PO 1227 Sodium Bicarbonate 1,950 MG TID 11/09 2100 DCD 11/19 PO 1328 Sodium Hypochlorite 1 MEI BID 11/09 2100 DCD 11/19 TOP 1037 Torsemide 80 MG BID 11/19 0900 DCD 11/19 PO 1036 Last 24 Hrs of Lab/[place] Results Last 24 Hrs of Labs/Mics: Laboratory Tests 11/19/17 0708: Anion Gap 7, Estimated GFR 10 L, BUN/Creatinine Ratio 16.9, Phosphorus 5.9 H Assessment/Plan Assessment: All medical teams and nursing staff have repeatedly advised patient not to leave and of the dangers to his health. We even provided options such as moving to another hospital or going to an STR. Patient is leaving hospital AGAINST MEDICAL ADVICE today. He has been advised to follow-up with nephrology service as soon as possible as an outpatient. 1. Sepsis of urologic origin (cultures growing Morganella and Proteus) - on cipro 500 mg for a 2 week course per ID 2. Acute hypoxemic respiratory failure, ascites, pleural effusions secondary to volume overload in the setting of CKD - Improving oxygen requirements - Patient now on 5L, reduce as tolerated - Continue ambulation 3. Acute on chronic kidney disease stage V. - Electrolyte abnormalities resolved - Application Systems Architect now 5.9, (down from high 6's at admission) - Please check phosphorus levels daily - Continue sevelamer to 2400 g PO 3 times daily - Continue Torsemide 80 mg PO BID - Continue metolazone M W prior to am torsemide dose 4. Elevated troponins - Expected likely due to demand ischemia in the setting of CKD stage V - Only check trops if new onset cardiac clinical symptoms 5. Possible uretral strictures - Urology will follow outpatient 6. Anixety, Restlessness, Trouble Sleeping - Continue xanax 0.25 mg BID as needed 7. Chronic conditions (HTN, anemia of chronic disease, T2DM, KALE, neuropathy) - Continue current management Problem List: 1. Acute hypoxemic respiratory failure Pain Ratin Pain Location: NA Pain Goal: Remain pain free Pain Plan: Per pathway, no opiods Tomorrow's Labs & Rationales: CBC, BEP Norm CASEY,[place] 11/19/17 1120: Attending MD Review Statement Attending Statement Attending MD Statement: examined this patient, discuss w/resident/PA/BUTTON DECORATING MACHINE OPERATOR, agreed w/resident/PA/BUTTON DECORATING MACHINE OPERATOR, reviewed EMR data (avail), discussed with nursing, discussed with case mgmt, amended to note Attending Assessment/Plan: Patient seen and examined. Resting comfortably not in any acute distress. No issues overnight. Some episodes of sinus bradycardia on the monitor. He reports feeling well at rest. Denies shortness of breath chest pain at rest. Nursing staff reports that he has not been compliant with trying to ambulate out of the room. He ambulates in the room. Most of the time he wants to take off the oxygen cannula. His oxygenation status has improved however he still requires 5 L of oxygen to maintain his saturation. He has been transitioned from intravenous Lasix to oral diuretic therapy. His renal function remains severely decreased. On examination he has diminished breath sounds in lung bases. He has bilateral peripheral edema. Patient is adamant on leaving the hospital today. He resides alone and has no family members to support him. He reports that he is unable to pay for it to be with him at home. We have advised him that it would be in his best interest to be discharged to snf facility where he may be monitored closely with interventions to help should he become more short of breath. He however is systems going home. We have advised him that he would need to be monitored more closely on oral diuretic therapy to determine that he is responding to this and does not require a higher dose of the diuretics. We recommend that he continue to be monitored closely by the medical team we continue weaning down off his oxygen supplementation and hopefully eventually his diuretics however he does not want to continue with this any further in the hospital. He accepts the risks of worsening volume overload with worsening shortness of breath, respiratory failure requiring intubation and possibly . Recommendations: -Patient will be sent out of the hospital AGAINST MEDICAL ADVICE today. -He will be discharged on furosemide 80 mg orally twice daily and metolazone Saturday. -He has been advised to follow-up with nephrology service as soon as possible as an outpatient. -He will complete antibiotic course with ciprofloxacin as recommended by the ID service.
[2017-11-19] MEDS ORDERED: LOPRESSOR50 M1 PO ×2 (08:36→12:10)
[2017-11-19] MEDS ORDERED: METOLAZONE5 M1 PO ×2 (08:38→12:10)
[2017-11-19] MEDS ORDERED: TORSEMIDE20 M1 PO ×2 (08:38→12:10)
[2017-11-19] MEDS ORDERED: HYDRALAZINE HCL50 M1 PO ×2 (08:39→12:10)
--- NOTE | 2017-11-19 08:40 | Patient Discharge Instructions ---
Discharge Instructions General Discharge Information You were seen/treated for: Volume overload secondary to CKD stage 5, resulting in acute hypoxemic respiratory failure. Watch for these problems: Any dizziness, shortness of breath, loss of consiousness, chest pain, please go to nearest ER or visit health care provider Diet Continue normal diet: No Recommended Diet: Renal Diet and Consistent Carb Diet 2 Activity Full Activity/No Limits: No Activity Self Limited: Yes Acute Coronary Syndrome Inclusion Criteria At DC or during hospital stay patient has or had the following: ACS DIAGNOSIS No Discharge Core Measures Meds if any: Prescribed or Continued at Discharge Meds if any: NOT Prescribed or Continued at Discharge Congestive Heart Failure Inclusion Criteria At DC or during hospital stay patient has or had the following: CHF DIAGNOSIS No Discharge Core Measures Meds if any: Prescribed or Continued at Discharge Meds if any: NOT Prescribed or Continued at Discharge Cerebrovascular accident Inclusion Criteria At DC or during hospital stay patient has or had the following: CVA/TIA Diagnosis No Discharge Core Measures Meds if any: Prescribed or Continued at Discharge Meds if any: NOT Prescribed or Continued at Discharge Venous thromboembolism Inclusion Criteria VTE Diagnosis No VTE Type NONE VTE Confirmed by (Test) NONE Discharge Core Measures - Per Current guidelines, there needs to be overlap - treatment for the first 5 days of Warfarin therapy. - If discharged on Warfarin prior to 5 days of - overlap therapy, the patient will need to be - assessed for post discharge needs including - *Post discharge parental anticoagulation - *Warfarin and/or parental anticoagulation education - *Follow up date to check INR post discharge At least 5 days overlap therapy as Inpatient No Meds if any: Prescribed or Continued at Discharge Note: Overlap Therapy is Warfarin and Anticoagulant Meds if any: NOT Prescribed or Continued at Discharge
--- NOTE | 2017-11-19 10:21 | PN- Infect Dx ---
Subjective Subjective: Afebrile without complaints Objective Last 24 Hrs of Vital Signs/I&O Vital Signs Date Time Temp Pulse Resp B/P B/P Pulse O2 O2 Flow FiO2 Mean Ox Delivery Rate 11/20 0715 64 142/64 11/19 0815 142/64 11/19 0814 142/64 11/19 0655 98.7 64 20 142/64 93 Nasal 4.0L Cannula 11/19 0000 Nasal 5.0L Cannula 11/18 2336 98.4 67 20 154/70 91 Nasal 6.0L Cannula 11/18 2149 64 116/52 11/18 2148 64 116/52 11/18 1644 87 Nasal 4.0L Cannula 11/18 1500 98.1 64 20 116/52 95 Nasal Cannula 11/18 1424 62 138/60 11/18 1342 88 Nasal 4.0L Cannula 11/18 1157 93 Nasal 5.0L Cannula 11/18 1030 95 Nasal 6.0L Cannula Intake & Output 11/19 1600 11/19 0800 11/19 0000 Intake Total 300 Output Total 150 400 200 Balance -150 -400 100 Intake, Oral 300 Number 2 Bowel Movements Output, Urine 150 400 200 Physical Exam Other Physical Findings: He appears comfortable in no acute distress Lungs are clear Heart regular rhythm with no murmur Abdomen is obese, soft, nontender with positive bowel sounds Extremities trace edema both lower extremities Results Last 24 Hours of Lab Results: Laboratory Tests 11/20 707 Chemistry Sodium (137 - 145 mmol/L) 140 Potassium (3.5 - 5.1 mmol/L) 3.6 Chloride (98 - 107 mmol/L) 101 Carbon Dioxide (22 - 30 mmol/L) 33 H Anion Gap (5 - 16) 7 BUN (9 - 20 mg/dL) 100 H Creatinine (0.7 - 1.2 mg/dL) 5.9 *H Estimated GFR (>60 ml/min) 10 L BUN/Creatinine Ratio (7 - 25 %) 16.9 Phosphorus (2.5 - 4.5 mg/dL) 5.9 H Last 24 Hours of [place] Results: No recent cultures Assessment/Plan ID Impression: Stable, with temperatures and white blood cell count remaining normal, on Ceftriaxone, Day 10 of treatment (though he did miss 2 doses of Ceftriaxone) for Proteus and Morganella sepsis, presumably of urologic origin. He will require a total of 2 weeks of antibiotics, which can be completed with an oral agent. He reports fevers and chills with Ciprofloxacin 10 years prior to admission; therefore not clear that this represents an allergy and should be able to try this in the hospital prior to discharge. Another option would be Bactrim, but, given his renal failure, it would be best to avoid this. Suggestion: 1. Continue Ceftriaxone until discharge 2. Upon discharge would give 1 dose of Ciprofloxacin 500 mg p.o. in the hospital and then continue Ciprofloxacin 500 mg p.o. every 24 hours to complete a 14 day course of treatment
[2017-11-19] MEDS ORDERED: CIPRO500 M1 PO ×2 (12:01→12:10)
[2017-11-19] MEDS ORDERED: ASPIRIN81 M4 PO (12:10)
[2017-11-19] MEDS ORDERED: RENVELA800 M1 PO (12:10)
[2017-11-19 14:57] VITALS: BP 140/68
--- NOTE | 2017-11-19 16:42 | PN- Nephrology ---
Assessment/Plan Nephrology Assessment: 1. CKD V 2/2 DM 2. UTI with polymicrbial bacteremia 3. Volume overload - improved but still present and pt remains )2 dependent 4. Hypernatremia - resolved 5. Hyperphosphatemia Suggestion: 1. Patient is signing out AGAINST MEDICAL ADVICE despite efforts by multiple caregivers to convince him otherwise, clearly informing him of the life- threatening nature of his actions. He refuses to consider any form of dialysis at this time. 2. He has been advised to return to the emergency department should his breathing worsen or new symptoms develop Subjective Subjective: Patient is determined to leave the hospital today with a without medical permission. He states that he has personal and financial issues to attend to and refuses to wait for any attempted intervention or assistance by social work faculty member here in the hospital. He also is refusing to consider dialysis at this time. Creatinine 5.9, BUN 100. Objective Vital Signs and I&Os Vital Signs Date Time Temp Pulse Resp B/P B/P Pulse O2 O2 Flow FiO2 Mean Ox Delivery Rate 11/19 1457 98.1 63 20 140/68 93 Nasal 4.0L Cannula 11/19 1328 142/64 11/19 1200 93 Nasal 4.0L Cannula 11/19 0815 64 142/64 11/19 0815 142/64 / 0814 142/64 11/19 0800 93 Nasal 5.0L Cannula 11/19 0655 98.7 64 20 142/64 93 Nasal 4.0L Cannula 11/19 0000 Nasal 5.0L Cannula 11/18 2336 98.4 67 20 154/70 91 Nasal 6.0L Cannula 11/18 2149 64 116/52 11/18 2148 64 116/52 11/18 1644 87 Nasal 4.0L Cannula Intake & Output 11/19 1600 07 0400 11/18 1600 11/18 0400 08/ 1600 / 0400 Intake Total 480 300 816 039 6356 Output Total 708 470 7951 750 Balance -370 100 -500 -600 1070 Intake, IV 70 590 Intake, Oral 480 300 600 150 480 Number 1 2 1 4 Bowel Movements Output, Urine 005 747 4816 750 Patient 279 lb 279 lb Weight Physical Exam: General: Well-developed, WM, on nasal O2, upset about still being in the hospital, denying shortness of breath Skin: No rash or jaundice HEENT: Conjunctivae pale, sclerae anicteric, mucous membranes dry Neck: Without masses or thyromegaly, no supraclavicular or cervical adenopathy Chest: Diminished breath sounds at bases Heart: Regular rate and rhythm without S3 or rub Abdomen: Soft, nontender; no masses or organomegally Extremities: Without cyanosis; + lower extremity edema Neuro: Cognitively intact, no focal findings, no asterixis or myoclonus Results Pertinent Lab Results: Laboratory Tests 11/19 11/18 11/17 0708 0649 0640 Chemistry Sodium (137 - 145 mmol/L) 140 143 Potassium (3.5 - 5.1 mmol/L) 3.6 3.6 Chloride (98 - 107 mmol/L) 101 102 Carbon Dioxide (22 - 30 mmol/L) 33 H 30 Anion Gap (5 - 16) 7 11 BUN (9 - 20 mg/dL) 100 H 92 H Creatinine (0.7 - 1.2 mg/dL) 5.9 *H 6.1 *H Estimated GFR (>60 ml/min) 10 L 9 L BUN/Creatinine Ratio (7 - 25 %) 16.9 15.1 Phosphorus (2.5 - 4.5 mg/dL) 5.9 H 6.0 H
--- NOTE | 2017-11-19 16:45 | PN- Pulmonary ---
Subjective HPI/Critical Care Issues: pt seen and examined his o2 requirements are decreased to 5L via NC no n/v/d/c no waldrop no cp at rest he is not dyspneic he wishes to be discharged Objective Current Medications: Current Medications Sig/Jose Angel Start time Last Medication Dose Route Stop Time Status Admin Acetaminophen 1,000 MG Q6P PRN 11/09 1800 AC 11/12 N/A 1 UNIT IV 1607 Acetaminophen 650 MG Q6P PRN 11/09 1645 AC 11/19 PO 1330 Alprazolam 0.25 MG TID 11/18 2100 AC 11/19 PO 11/25 2059 1329 Amlodipine Besylate 10 MG DAILY 11/11 09 AC 11/19 PO 0814 Aspirin 81 MG DAILY 11/10 09 AC 11/19 PO 0814 Atorvastatin Calcium 40 MG DAILY@1700 11/10 1700 AC 11/18 PO 1730 Ceftriaxone Sodium 1,000 MG DAILY 11/18 1030 DC 11/19 IV 0818 Ciprofloxacin 500 MG ONCE ONE 11/19 1100 DC 11/19 PO 11/19 1101 1328 Heparin Sodium 5,000 UNIT Q8 11/09 2200 AC 11/19 (Porcine) SC 1332 Hydralazine HCl 75 MG TID 11/11 2100 AC 11/19 PO 1328 Insulin Aspart 0 TIDAC 11/10 1200 AC 11/19 SC 1227 Insulin Detemir 4 UNITS BID 11/12 0900 AC 11/19 SC 0816 Lidocaine 1 PAT DAILY@19011/10 1900 AC 11/18 EXT 1900 Magnesium Oxide 400 MG BID 11/09 2256 AC 11/19 PO 0814 Metolazone 5 MG 11/20 0900 DC PO Metolazone 5 MG MoWeFr@11/20 0800 AC PO Metoprolol Tartrate 50 MG BID 11/17 2100 AC 11/19 PO 0815 Sevelamer Carbonate 2,400 MG TIDAC 11/18 1700 AC 11/19 PO 1227 Sodium Bicarbonate 1,950 MG TID 11/09 2100 AC 11/19 PO 1328 Sodium Hypochlorite 1 MEI BID 11/09 2100 AC 11/19 TOP 1037 Torsemide 80 MG BID 11/19 0900 AC 11/19 PO 1036 Vital Signs & I&O Last 24 Hrs of Vitals and I&O: Vital Signs Date Time Temp Pulse Resp B/P B/P Pulse O2 O2 Flow FiO2 Mean Ox Delivery Rate 11/19 1457 98.1 63 20 140/68 93 Nasal 4.0L Cannula 11/19 1328 142/64 11/19 1200 93 Nasal 4.0L Cannula 11/19 0815 64 142/64 11/19 0815 142/64 11/19 0814 142/64 11/19 0800 93 Nasal 5.0L Cannula 11/19 0655 98.7 64 20 142/64 93 Nasal 4.0L Cannula 11/19 0000 Nasal 5.0L Cannula 11/18 2336 98.4 67 20 154/70 91 Nasal 6.0L Cannula 11/18 2149 64 116/52 11/18 2148 64 116/52 11/18 1644 87 Nasal 4.0L Cannula Intake & Output 11/19 1600 11/19 0800 11/19 0000 Intake Total 480 300 Output Total 450 400 200 Balance 30 -400 100 Intake, Oral 480 300 Number 1 2 Bowel Movements Output, Urine 450 400 200 Exam Other Physical Findings: [id number] heent-nasal cannula - 4LNC cvs-s1,s2 lungs-rare rhonchi abd-soft, bs+ ext-chronic wounds Results Last 24 Hrs of Lab Results: Laboratory Tests 11/19/17 0708: Anion Gap 7, Estimated GFR 10 L, BUN/Creatinine Ratio 16.9, Phosphorus 5.9 H Impression/Plan Impression/Plan Impression/Plan: Impression 62 year old man * sepsis - likely urinary source - proteus & morganella bacteremia - MRSA surveillance * acute hypoxemic respiratory failure secondary to volume overload * hx of b/l pleural effusions * CKD Plan -goal fio2 as tolerated to achieve spo2 goal >88% - patient preference -continue diuresis, ins/outs -cont abx per ID -cardiology, nephrology, urology follow up DVT prophylaxis at all times Full Code he requires o2 to be set up at home, he wishes to go home regardless of consideration for awaiting reduction in oxygen requirements and does not wish to consider rehabilitation
== END 2017-11-19 17:00 | disposition left against medical advice (07) | DRG 720 ==
LOC: ERH 14:24 → CRI 16:10 → 1NO 16:10 → ERHI 16:10 → ENRESERV 16:37 → ENTRNSPT 16:50 → EDTRNSPTSTS 16:51 → CRI 17:09 → CMPTRNSPT 17:37 → CRI 11-11 13:20 → ENTRNSPT 11-13 17:04 → EDTRNSPT 11-13 17:24 → EDTRNSPTSTS 11-13 17:24 → CMPTRNSPT 11-13 17:52 → 1NO 11-13 17:52
PROVIDERS: Emergency Medicine; Internal Medicine; Preventive Medicine Public Health & General Preventive Medicine; Student in an Organized Health Care Education/Training Program
DX: A41.9 Sepsis, unspecified organism (principal); N39.0 Urinary tract infection, site not specified; I13.2 Hypertensive heart and chronic kidney disease with heart failure and with stage 5 chronic kidney disease, or end stage renal disease; I50.32 Chronic diastolic (congestive) heart failure; N18.5 Chronic kidney disease, stage 5; E11.22 Type 2 diabetes mellitus with diabetic chronic kidney disease; Z79.4 Long term (current) use of insulin; E11.40 Type 2 diabetes mellitus with diabetic neuropathy, unspecified; E11.319 Type 2 diabetes mellitus with unspecified diabetic retinopathy without macular edema; J96.01 Acute respiratory failure with hypoxia; E87.6 Hypokalemia; E87.2 Acidosis; E87.70 Fluid overload, unspecified; L97.209 Non-pressure chronic ulcer of unspecified calf with unspecified severity; B96.1 Klebsiella pneumoniae [K. pneumoniae] as the cause of diseases classified elsewhere; I24.8 Other forms of acute ischemic heart disease; Z95.1 Presence of aortocoronary bypass graft; M19.90 Unspecified osteoarthritis, unspecified site; Z87.891 Personal history of nicotine dependence; G47.33 Obstructive sleep apnea (adult) (pediatric)
CPT/HCPCS: 1NP; CCU; 36415; 36592; 71045; 74176; 80307; 81001; 82436; 87015; 87040; 87045; 87070; 87086; 87449; 87450; 87899; 87899-59; 93005; 93010; 93970; 96360; 96365; 96375; 99291; J0131; J0456; J0696; J0713; J1644; J1815; J1940; J3370; J3490; J7040

== ENCOUNTER 2017-12-09 12:45 | Inpatient (IN) | payer OTHER ==
[~2017-12-09] VITALS: Ht 180.3 cm; Wt 116.3 kg
[~2017-12-09 12:45] MED LIST changes: +AMMONIUM LACTA385 GM TOP; +ASPIRIN81 M4 PO; +CIPRO500 M1 PO; +HUMALOG100 UNIT/2 SC; +HYDRALAZINE HCL25 M1 PO; +LIDOCAINE1 EACH TOP; +LOPRESSOR50 M1 PO; +METOLAZONE5 M1 PO; +TORSEMIDE20 M1 PO; +TRAZODONE HCL50 M1 PO; +XOLIDO118 ML TOP
--- NOTE | 2017-12-09 13:28 | RADIOLOGY REPORT ---
EXAMINATION: XR PORTABLE CHEST CLINICAL INFORMATION: Shortness of breath. Abdominal swelling. COMPARISON: 11/14/2017 TECHNIQUE: Portable frontal view of the chest was obtained. FINDINGS: Lungs are symmetrically expanded. Platelike atelectasis within the right lower lobe. Persistent opacity in the retrocardiac region of the left lower lobe from atelectasis and/or consolidation -- similar compared to 11/14/2017. Cardiac silhouette is mildly enlarged. Sternotomy wires are intact. Probable small pleural effusions (although difficult to detect on this single view exam). No evidence of pneumothorax or pneumoperitoneum. The visualized bones are intact. IMPRESSION: - No evidence of pulmonary edema. - Platelike atelectasis in right lower lobe. Persistent opacity from atelectasis or consolidation left lower lobe -- similar compared to 11/14/2017.
[2017-12-09 13:44] LABS: ABSOLUTE BASOPHIL COUNT 0 /CUMM (0.0-0.2); ABSOLUTE EOSINOPHIL COUNT 0.1 /CUMM (0.0-0.7); ABSOLUTE GRANULOCYTE CT 3.4 /CUMM (1.4-6.5); ABSOLUTE LYMPH COUNT 1.1 /CUMM (1.2-3.4); ABSOLUTE MONOCYTE COUNT 0.7 /CUMM (0.10-0.60); BASOPHIL % 0.5 % (0.0-2.0); EOSINOPHIL % 2.2 % (0-5); GRANULOCYTE % 64.3 % (42.2-75.2); HEMATOCRIT 26.7 % (42-52); MEAN CORPUSCULAR HGB 30.8 PG (27.0-31.0); MEAN CORPUSCULAR HGB CONC 32.7 G/DL (33.0-37.0); MEAN PLATELET VOLUME 8.9 FL (7.4-10.4); PLATELET COUNT 284 /CUMM (130-400); RBC DISTRIBUTION WIDTH 17.3 % (11.5-14.5); RED BLOOD CELL CT 2.84 /CUMM (4.70-6.10); WHITE BLOOD CELL COUNT 5.4 /CUMM (4.8-10.8)
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
[2017-12-09 13:55] LABS: PT 12.9 SEC (9.4-12.5); PTT 38 SEC (25-37)
--- NOTE | 2017-12-09 16:29 | ULTRASOUND REPORT ---
EXAMINATION: PARACENTESIS CLINICAL INFORMATION: Ascites COMPARISON: Same day CT abdomen pelvis TECHNIQUE: Indirect ultrasound guidance using a 6 Romanian Lxmi-V-Pnykyuub closed needle/catheter system FINDINGS: Informed consent was obtained from the patient prior to the procedure. During this process, the procedure alternatives were explained, along with the intended outcome and benefits. The risks of the procedure, as well as the risk of not doing the procedure, was discussed. The patient was given the opportunity to ask questions regarding the procedure and appeared competent to make medical decisions. A signed consent form which documents this discussion was placed in the medical record. Ultrasound evaluation of the abdomen for ascites was performed. Large amount of ascites is noted in the right lower quadrant. The site was marked. A timeout procedure was performed. The area was prepped and draped in usual sterile fashion. Using standard interventional and sterile techniques, lidocaine was used to anesthetize the region. A 6 Romanian Xbqt-L-Qaofncfh closed needle/catheter system was introduced into the right lower quadrant using standard safety needle technique. Approximately 16 L of light yellow fluid was removed into the Vacutainer bottles. The catheter was then removed. Good hemostasis was achieved. Dermabond was placed. The patient demonstrated immediate symptomatic relief. The patient tolerated the procedure well. The patient was discharged from the department in stable condition. COMPLICATIONS: None. IMPRESSION: Successful ultrasound-guided paracentesis yielding 16 L of fluid.
--- NOTE | 2017-12-09 16:44 | CT SCAN REPORT ---
EXAMINATION: CT ABDOMEN AND PELVIS WITHOUT CONTRAST CLINICAL INFORMATION: Ascites, evaluate for obstruction, abdominal distention COMPARISON: 11/14/2017 TECHNIQUE: Multidetector volumetric imaging was performed from the superior aspect of the liver through the pubic symphysis. Sagittal and coronal reformatted images were obtained on the technologist's workstation. Decreasing right-sided effusion with decreasing atelectasis or infiltrate at the right base. Partially imaged granulomas are noted well calcified. Decreasing fluid at the left base but persistent atelectasis or infiltrate. Upper abdomen Decreasing ascites. Now trace in the upper abdomen. This is a noncontrast study but the liver is homogeneous. Spleen is enlarged but no obvious lesion. Dense vascular calcifications are once again noted. Region of the pancreas is within normal limits. Area the adrenal glands is unremarkable. No evidence for hydronephrosis in the kidneys. Bowel pattern is nonobstructing. Calcified aorta which appears nonaneurysmal. Pelvis the bowel pattern is nonobstructing. No suspicious fluid collection. Decreased ascites. Soft tissue/subcutaneous edema is once again noted in this patient. Review of the bone windows shows persistent bony loss at D10 of uncertain etiology. No convincing evidence of change from previous. IMPRESSION: Markedly decreasing ascites. Now only trace in the upper abdomen. The bowel pattern is nonobstructing. No suspicious fluid collection. Bilateral lung bases with decreasing fluid but there is persistent atelectasis or infiltrate at the left base. There is persistent and increasing subcutaneous edema Possible edematous change involving the distal rectosigmoid. An element of colitis here product height is cannot be excluded.
--- NOTE | 2017-12-09 17:44 | History & Physical ---
Rachna Smiley 12/09/17 1743: General Information and HPI Source of Information: patient Exam Limitations: no limitations History of Present Illness: 62 yo male with PMH of chronic kidney disease stage IV, diabetes, hypertension, peripheral neuropathy, CAD s/p CABG and moderate to high dose torsemide and metolazone presents to the ED with worsening abdominal distension leading to shortness of breath for about 2 weeks, He was recently admitted to the hospital for the treatment of pneumonia. His hospital course was complicated by the developement of ascites which was managed by diuretics. The patient states that his abdomen has been getting distended since his discharge. He denies fever, chills, nausea, vomiting, chest pain, orthopnea, decresed urine output or any change in his appetite or weight. He does have CKD Stage 4 but has never been on dialysis. Allergies/Medications Allergies: Coded Allergies: baclofen (LOSE EYESIGHT AND MOTOR SKILLS PER PT 09/23/17) ciprofloxacin (From CIPRO) (FEVER PT PT 09/23/17) lisinopril (COUGH PER PT 09/23/17) Home Med list Acetaminophen (Tylenol Extra Strength) 500 MG TABLET 1 TAB PO Q6 PRN KNEE PAIN (Reported) Amlodipine Besylate 10 MG TABLET 1 TAB PO DAILY HTN (Reported) Ammonium Lactate 12 % CREAM..G. 1 MEI TOP DAILY FEET (Reported) Aspirin (Aspirin*) 81 MG TAB.CHEW 1 TAB PO DAILY HEART . Atorvastatin Calcium 40 MG TABLET 1 TAB PO DAILY CHOL (Reported) Ciprofloxacin HCl (Cipro) 500 MG TABLET 500 MG PO DAILY UTI . Epoetin Chu (Procrit) 20,000 UNIT/ML VIAL 15,000 U SC ONCE A WEEK anemia Please coordinate with tobacco cutter regarding your weekly dosing. Fenofibrate Nanocrystallized (Fenofibrate) 145 MG TABLET 1 TAB PO DAILY URINE (Reported) Hydralazine HCl 50 MG TABLET 1.5 TAB PO BID HTN . Insulin Aspart (Novolog) 100 UNIT/ML VIAL 0 UNITS SC TIDAC diabetes BEFORE MEALS Blood Insulin Sugar Units <80 0 81-100 0 101-200 1 201-250 2 251-300 3 301-350 4 351-400 6 >400 Call Doctor Insulin Lispro (Humalog) 100 UNIT/ML VIAL 1 UNIT SC TID DM (Reported) USE DIRECTED Lidocaine 5 % ADH..PATCH 3 PAT TOP DAILY PAIN (Reported) Lidocaine HCl (Xolido) 2 % CREAM.ML. 1 MEI TOP AD TOPICAL ANESTHETIC ( Reported) Metaxalone 800 MG TABLET 1 TAB PO TID PRN MUSCLE SPASMS (Reported) Metolazone 5 MG TABLET 1 TAB PO Saturday FLUID OVERLOAD TO BE TAKEN BEFORE TORSEMIDE.. Metoprolol Tartrate (Lopressor) 50 MG TABLET 1 TAB PO BID HTN . Sevelamer Carbonate (Renvela) 800 MG TABLET 2 TAB PO TID KIDNEY (Reported) Sevelamer Carbonate (Renvela) 800 MG TABLET 3 TAB PO TIDAC SUPPLEMENT . Torsemide 20 MG TABLET 4 TAB PO BID CKD . Trazodone HCl 50 MG TABLET 1 TAB PO QHS PRN SLEEP (Reported) Past History Travel History Traveled to [place] past 21 day No Medical History Neurological: peripheral neuropathy EENT: NONE Cardiovascular: hypertension, CABG Respiratory: NONE Gastrointestinal: GASTRIC BYPASS 2016 Hepatic: NONE Renal: KIDNEY DISEASE STAGE 4 Musculoskeletal: osteoarthritis, leg injury r/t accident Psychiatric: substance abuse, (history 30+ years) Endocrine: diabetes Blood Disorders: DVT Cancer(s): NONE REIKI PRACTITIONER/Reproductive: URINARY INCONTINENCE MULTIPLE UROLOGIC PROCEDURES History of MRSA: Yes History of VRE: No History of CDIFF: No Surgical History Surgical History: CABG, gastric bypass, right orchiectomy and multiple urological surgeries Past Family/Social History Family History Relations & Conditions if any FATHER Coronary artery disease Psychosocial History Who Do You Live With? self Services at Home: Home Health Aide, Nursing Primary Language: Romanian Functional Ability ADLs Independent: dressing, eating. Needs Assist: toileting, bathing. Ambulation: walker IADLs Independent: food prep. Needs Assist: shopping, housework, medication admin. Review of Systems Review of Systems Constitutional: Denies: chills, diaphoresis, fever, malaise. Cardiovascular: Reports: edema, palpitations, peripheral edema. Denies: chest pain, orthopena. Respiratory: Denies: short of breath. GI: Reports: abdominal pain, bloating, distention. Denies: nausea, vomiting. Genitourinary: Denies: frequency, hesitation, nocturia, pain. Musculoskeletal: Denies: back pain, gout, joint pain. Hematologic/Endocrine: Denies: bruising, bleeding. Exam & Diagnostic Data Last 24 Hrs of Vital Signs/I&O Vital Signs Date Time Temp Pulse Resp B/P B/P Pulse O2 O2 Flow FiO2 Mean Ox Delivery Rate 12/09 2221 63 139/57 12/09 222 63 139/57 12/10 2003 61 136/59 100 12/09 1702 98.3 70 18 124/60 100 Nasal 4.0L Cannula 12/09 1256 95 Nasal 4.0L Cannula 12/09 1250 66 30 148/67 95 Nasal 6.0L Cannula Intake & Output 12/09 1600 12/09 0800 12/09 0000 Intake Total Output Total Balance Patient 290 lb Weight Weight Reported by Patient Measurement Method Physical Exam General Appearance Alert, Oriented X3, Cooperative, No Acute Distress Skin No Significant Lesion Neck Supple, No JVD Cardiovascular Regular Rate, Normal S1, Normal S2 Lungs bilateral decresed air entry at lubg bases Abdomen Normal Bowel Sounds, Soft, No Tenderness Neurological Normal Gait, Normal Speech Extremities No Clubbing, pedal edema 1+ Vascular Normal Pulses, Pulses Symmetrical Assessment/Plan Assessment: This is a 62 yo gentleman with PMH of chronic kidney disease stage IV, diabetes, hypertension, peripheral neuropathy, CAD s/p CABG and moderate to high dose torsemide and metolazone presents to the [place] ED with worsening abdominal distension for about 2 weeks. He is s/p paracentesis in the ED which drained about 16 L of fluid. The patient feels much better following the procedure. Vitals were stable in the ED. Labs:Hgb:8.7, Na: 141, K:4.4, Bicarb:20, BUN:107, Creatinine: 7, AST/ALT: 26/19, Albumin:1.5 We will admit the patient to the Gen Med service and evaluate and treat him for the following problems: 1. Large volume ascites s/p Paracentesis 2. RUTH on CKD 3. History of DM 4. Anemia Large volume ascites -Possibly due to volume overload from the kidney -S/p Paracentesis removing 16 L of fluid -Transudative in nature - We will monitor the patient for a possible recurrence -Continue the patient on home dose of diuretics -GI consult in the AM RUTH on CKD -Diabetic nephropathy -Baseline creatinine of 5 - RUTH with creatinine of 7 -Spot protein:creatinine ratio -Nephro consult in the AM for the evaluation for dialysis History of Diabetes -Accu checks q4 h -ISS -Endocrine consult Anemia -Normocytic normochromic type -Likely secondary to CKD -Will trend CBC DVT prophylaxis: Heparin and ALPS Code status: Full codel As Ranked By This Provider Problem List: 1. Anasarca 2. Diabetes 3. Acute on chronic kidney failure Qualifiers Acute renal failure type: unspecified Chronic kidney disease stage: stage 5, not on chronic dialysis Qualified Codes: N17.9 - Acute kidney failure, unspecified; N18.5 - Chronic kidney disease, stage 5 4. Ascites Core Measures/Misc (12/30) Acute Coronary Syndrome ACS Diagnosis: No Congestive Heart Failure Congestive Heart Failure Diagnosis No Cerebrovascular Accident CVA/TIA Diagnosis: No VTE (View Protocol) VTE Risk Factors Age>40 No Mechanical VTE Prophylaxis d/t N/A MechProphylax Ordered No VTE Pharm Prophylaxis d/t NA PharmProphylax ordered Sepsis (View protocol) Sepsis Present: Yes If YES complete Sepsis Event Note If YES complete Sepsis Event Note Hilairo CASEY,Alirio 12/09/17 2150: Core Measures/Misc (12/30) Sepsis (View protocol) If YES complete Sepsis Event Note If YES complete Sepsis Event Note Resident Review Statement Resident Statement: examined this patient, discussed with internet developer, agreed with internet developer Other Findings: 62 old gentleman with a past medical history significant for chronic kidney disease stage IV/V, diabetes, and om moderate to high dose torsemide and metolazone, presents with complaints of progressively worsening shortness of breath. Associated symptoms include abdominal swelling and lower extremity swelling. No chest pain, palpitation, orthopnea, troponins negative with no ischemic changes on EKG. Chest x-ray unremarkable for acute infectious pathology. On Physical examination, patient was found to be edematous on his lower extremities and markedly distended abdomen with fluid. Patient underwent large volume paracentesis with a reported 16 L drained. Impression * Dsypnea. Most likely 2/2 fluid overload precipitated by his anemic status, ACS unlikely given the lack of chest paiin, non elevated trops and unremarkable EKG. * Anasarca in a patient with chronic kidney disease stage IV despite being on significant oral diuresis with torsemide and metolazone. Possibly nephrotic syndrome form diabetes? * Ascitic fluid with SAAG>1.1 suggestive a non peritoneal cause of acites, probaly nephrotic syndrome * Acute on chronic Ckd as evident by a creatinine level of 7.0 considering patient's baseline is around 5. * Anemia, normocytic. Most likely secondary to see daily patient currently on CAITLIN. Plan Admit to general medicine floor Status post large volume paracentesis of 16L (?) Consider albumin infusion if pt develop hemodynamic instability Continue current home diuretics (pt already on moderate doses) and will defer to nephro on increment Continue to trend creatinine and electrolytes in the am Continue home meds including sodium bicarbonate Obtain spot urine protein ratio DVT prophylaxis heparin CODE STATUS; full Katie Milner MD 12/10/17 0049: Core Measures/Misc (12/30) Sepsis (View protocol) If YES complete Sepsis Event Note If YES complete Sepsis Event Note Attending MD Review Statement Attending Statement Attending MD Statement: examined this patient, discuss w/resident/PA/MARINE STEAMFITTER, agreed w/resident/PA/MARINE STEAMFITTER, reviewed EMR data (avail) Attending Assessment/Plan: 62M PMH HFpEF, CKD stage V, CAD s/p CABG in 2005, HTN, DM, KALE on CPAP presenting with 2 weeks of progressive shortness of breath. Recently left AMA after being treated for acute CHF. He presents with anasarca, and underwent IR- guided paracentesis which removed 16L of ascitic fluid. He has worsening of his renal function by labs. He appears clinically fluid overloaded. 1. ESRD 2. Anasarca Plan - Admit to general medicine - Nephrology consult - Continue home diuretics - Continue home medications - DVT PPx
[2017-12-09 22:43] VITALS: BP 139/57
[2017-12-10 06:34] VITALS: BP 126/66
--- NOTE | 2017-12-10 07:19 | PN- Housestaff ---
Jackie Smileyi 12/10/17 0719: Subjective Follow-up For: Large volume ascites Subjective: Patient was seen and examined at bedside. He had no complaints overnight. He states that he uses a stainless steel instrument to cathetarize himself at home because the regular cathetar is too big for him. He has left it at home and would want soemthing to unclog the urethra. He has been having some mild abdominal discomfort relieved by his scheduled dose of Acetaminophen. Review of Systems Constitutional: Reports: see HPI. Objective Last 24 Hrs of Vital Signs/I&O Vital Signs Date Time Temp Pulse Resp B/P B/P Pulse O2 O2 Flow FiO2 Mean Ox Delivery Rate 12/10 0634 98.2 65 20 126/66 98 Nasal 4.0L Cannula 12/09 2243 98.2 61 20 139/57 99 Nasal 4.0L Cannula 12/09 2222 63 139/57 12/09 2222 63 139/57 12/09 2045 Nasal 4.0L Cannula 12/09 2004 61 136/59 100 12/09 1702 98.3 70 18 124/60 100 Nasal 4.0L Cannula 12/09 1256 95 Nasal 4.0L Cannula 12/09 1250 66 30 148/67 95 Nasal 6.0L Cannula Intake & Output 12/10 1600 12/10 0800 12/10 0000 Intake Total 500 490 Output Total 1100 200 Balance -600 290 Intake, IV 20 10 Intake, Oral 480 480 Number 0 1 Bowel Movements Output, Urine 1100 200 Patient 255 lb 255 lb Weight Weight Bed scale Bed scale Measurement Method Physical Exam General Appearance: Alert, Oriented X3, Cooperative, No Acute Distress Skin: No Rashes, No Breakdown Skin Temp/Moisture Exam: Warm/Dry Sepsis Skin Exam (color): Normal for Ethnicity HEENT: Atraumatic, EOMI Neck: Supple, No JVD Cardiovascular: Regular Rate, Normal S1, Normal S2, No Murmurs Lungs: Clear to Auscultation, Normal Air Movement Abdomen: Normal Bowel Sounds, Soft, No Tenderness, no distension Extremities: No Cyanosis, No Edema, Normal Pulses Vascular: Normal Pulses, Pulses Symmetrical Assessment/Plan Assessment: This is a 62 yo gentleman with PMH of chronic kidney disease stage V, diabetes, hypertension, peripheral neuropathy, CAD s/p CABG and moderate to high dose torsemide and metolazone is admitted to the hospital with worsening abdominal distension for about 2 weeks.. He is s/p paracentesis in the ED which drained about 16 L of fluid. The patient feels much better following the procedure. Vitals are stable Labs:Hgb:8.5, Na: 141, K:4.4, Bicarb:20, BUN:107, Creatinine: 6.9, AST/ALT: 26/ 19, Albumin:1.5 The patient is admitted to the Gen Med service for the evaluation and treatment of the following problems:: 1. Large volume ascites s/p Paracentesis 2. ESRD 3. History of DM 4. Normocytic Anemia 5. Chronic hypoxemic respiratory failure secondary to volume overload 6. CAD s/p CABG 7. Hypertension 1, Large volume ascites -Possibly due to volume overload from the kidney. He has a tendency to develop recurrent ascites. -No liver pathology -S/p Paracentesis removing 16 L of fluid, transudative in nature -Monitor the patient for hypotension following paracentesis -Metazolone is increased to 5mg daily, Torsemide 80mg BID RUTH on CKD (ESRD) -Diabetic nephropathy -Baseline creatinine of 5 - RUTH with creatinine of 6.9 today -Spot protein:creatinine ratio pending -Nephro consult appreciated. Will follow up recommendations: * Increase Metalozone dose to 5mg everyday * The patient would need dietery counselling for diet recommendation * He is a candidate for impending dialysis. He would need to follow up with Dr. Lizeth Pradhan as an outpatient regarding the placement of PD cathetar 3. History of Diabetes -Accu checks q4 h -ISS -Endocrine consult 4.Anemia -Normocytic normochromic type -Likely secondary to CKD -Receives Aranesp at Dr. Pradhan's office. Has not receieved it for 2 months now. -Hgb stable at the moment. Will trend CBC 5. Left foot ulcers -Wound consult -Would follow up recommendations DVT prophylaxis: Heparin and ALPS Code status: Full codel Problem List: 1. Ascites 2. Acute on chronic kidney failure 3. Volume overload 4. ESRD (end stage renal disease) Pain Ratin Pain Location: none Pain Goal: Remain pain free Pain Plan: Tyelenol Tomorrow's Labs & Rationales: cbc and bep Rebecca Geiger 12/10/17 1110: Attending MD Review Statement Attending Statement Attending MD Statement: examined this patient, discuss w/resident/PA/TRAVEL COUNSELOR, agreed w/resident/PA/TRAVEL COUNSELOR, discussed with family, reviewed EMR data (avail), discussed with nursing, discussed with case mgmt, reviewed images, amended to note Attending Assessment/Plan: Patient wth pmh of CAD/bypass, EF 60%, CHF, DM, CKD/ESRD with fluid overlaod and abdominal distension with ascites s/p paracentesis anmd removal of large volume of fluid. No new compliants today. CR stable. Urine output+ ESRD Anasarca Anemia of chronic disease Nephrology consulted and follow recommendations Continue home diuretics and increase metalzone 5 mg, monitor I/O. Anemia stable BP controlled and monitor hemodynamics post large volume paracentesis CHF with preserved EF stable. DM on insulin management., RISS and titrate insulin as needed GI/dvt prophylaxis full code
[2017-12-10 09:22] LABS: ABSOLUTE BASOPHIL COUNT 0 /CUMM (0.0-0.2); ABSOLUTE EOSINOPHIL COUNT 0.1 /CUMM (0.0-0.7); ABSOLUTE GRANULOCYTE CT 3.5 /CUMM (1.4-6.5); ABSOLUTE LYMPH COUNT 0.9 /CUMM (1.2-3.4); ABSOLUTE MONOCYTE COUNT 0.5 /CUMM (0.10-0.60); BASOPHIL % 0.4 % (0.0-2.0); EOSINOPHIL % 1.3 % (0-5); GRANULOCYTE % 70.2 % (42.2-75.2); HEMATOCRIT 26.5 % (42-52); MEAN CORPUSCULAR HGB 30.1 PG (27.0-31.0); MEAN CORPUSCULAR VOLUME 93.9 FL (80.0-94.0); MEAN PLATELET VOLUME 9.1 FL (7.4-10.4); PLATELET COUNT 211 /CUMM (130-400); RBC DISTRIBUTION WIDTH 17.5 % (11.5-14.5); RED BLOOD CELL CT 2.82 /CUMM (4.70-6.10)
[2017-12-10 09:35] VITALS: BP 156/70
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
[2017-12-10 12:50] VITALS: BP 116/54
[2017-12-10 15:05] VITALS: BP 143/73
[2017-12-10 22:25] VITALS: BP 114/55
[2017-12-11 06:32] VITALS: BP 126/64
[2017-12-11] MEDS ORDERED: METOLAZONE5 M1 PO ×2 (07:07→13:33)
--- NOTE | 2017-12-11 07:10 | Patient Discharge Instructions ---
Discharge Instructions General Discharge Information You were seen/treated for: Ascites Special Instructions: 1. Please schedule an appointment with your PCP within a week of your discharge. 2. Please schedule an apoointment with with your Wave Solder Offbearer Dr. Pradhan soon after your discharge. 3. Please STRICTLY limit your dietery sodium to less than 2 g a day. Acute Coronary Syndrome Inclusion Criteria At DC or during hospital stay patient has or had the following: ACS DIAGNOSIS No Discharge Core Measures Meds if any: Prescribed or Continued at Discharge Meds if any: NOT Prescribed or Continued at Discharge Congestive Heart Failure Inclusion Criteria At DC or during hospital stay patient has or had the following: CHF DIAGNOSIS No Discharge Core Measures Meds if any: Prescribed or Continued at Discharge Meds if any: NOT Prescribed or Continued at Discharge Cerebrovascular accident Inclusion Criteria At DC or during hospital stay patient has or had the following: CVA/TIA Diagnosis No Discharge Core Measures Meds if any: Prescribed or Continued at Discharge Meds if any: NOT Prescribed or Continued at Discharge Venous thromboembolism Inclusion Criteria VTE Diagnosis No VTE Type NONE VTE Confirmed by (Test) NONE Discharge Core Measures - Per Current guidelines, there needs to be overlap - treatment for the first 5 days of Warfarin therapy. - If discharged on Warfarin prior to 5 days of - overlap therapy, the patient will need to be - assessed for post discharge needs including - *Post discharge parental anticoagulation - *Warfarin and/or parental anticoagulation education - *Follow up date to check INR post discharge At least 5 days overlap therapy as Inpatient No Meds if any: Prescribed or Continued at Discharge Note: Overlap Therapy is Warfarin and Anticoagulant Meds if any: NOT Prescribed or Continued at Discharge
--- NOTE | 2017-12-11 07:13 | PN- Housestaff ---
Darwin Cordova 12/11/17 0713: Subjective Follow-up For: ascites s/p paracentesis RUTH Review of Systems Constitutional: Reports: see HPI. Objective Last 24 Hrs of Vital Signs/I&O see vitals Physical Exam General Appearance: Alert, Oriented X3, Cooperative, No Acute Distress Cardiovascular: Normal S1, Normal S2 Lungs: Normal Air Movement Abdomen: Soft, No Tenderness Neurological: Normal Speech, Strength at 5/5 X4 Ext, Normal Tone, Sensation Intact Assessment/Plan Assessment: This is a 62 yo gentleman with PMH of chronic kidney disease stage V, diabetes, hypertension, peripheral neuropathy, CAD s/p CABG and moderate to high dose torsemide and metolazone is admitted to the hospital with worsening abdominal distension for about 2 weeks.. He is s/p paracentesis in the ED which drained about 16 L of fluid. The patient feels much better following the procedure. Vitals are stable Labs:Hgb:8.5, Na: 141, K:4.4, Bicarb:20, BUN:107, Creatinine: 6.9, AST/ALT: 26/ 19, Albumin:1.5 The patient is admitted to the Gen Med service for the evaluation and treatment of the following problems:: 1. Large volume ascites s/p Paracentesis 2. ESRD 3. History of DM 4. Normocytic Anemia 5. Chronic hypoxemic respiratory failure secondary to volume overload 6. CAD s/p CABG 7. Hypertension 1, Large volume ascites -Possibly due to volume overload from the kidney. He has a tendency to develop recurrent ascites. -No liver pathology -S/p Paracentesis removing 16 L of fluid, transudative in nature -Metazolone is increased to 5mg daily, Torsemide 80mg BID RUTH on CKD (ESRD) -Diabetic nephropathy -Baseline creatinine of 5 - RUTH with creatinine of 6.9 today -Spot protein:creatinine ratio pending -Nephro consult appreciated. Will follow up recommendations: * Increase Metalozone dose to 5mg everyday * The patient would need dietery counselling for diet recommendation * He is a candidate for impending dialysis. He would need to follow up with Dr. Lizeth Pradhan as an outpatient regarding the placement of PD cathetar 3. History of Diabetes -Accu checks q4 h -ISS -Endocrine consult 4.Anemia -Normocytic normochromic type -Likely secondary to CKD -Receives Aranesp at Dr. Pradhan's office. Has not receieved it for 2 months now. -Hgb stable at the moment. Will trend CBC 5. Left foot ulcers -Wound consult -Would follow up recommendations DVT prophylaxis: Heparin and ALPS Code status: Full codel Problem List: 1. Ascites Pain Ratin Pain Location: none Pain Goal: Remain pain free Pain Plan: none Tomorrow's Labs & Rationales: none Rebecca Geiger 12/11/17 1052: Attending MD Review Statement Attending Statement Attending MD Statement: examined this patient, discuss w/resident/PA/TRIAGE LICENSED PRACTICAL NURSE, agreed w/resident/PA/TRIAGE LICENSED PRACTICAL NURSE, discussed with family, reviewed EMR data (avail), discussed with nursing, discussed with case mgmt, reviewed images, amended to note Attending Assessment/Plan: Patient wth pmh of CAD/bypass, EF 60%, CHF, DM, CKD satge 5/ascites with fluid overlaod and abdominal distension with ascites s/p paracentesis anmd removal of large volume of fluid. No new compliants today. CR stable 6.8. Urine output+ CKD stage 5 Fluid overload/ascites s/p paracentesis Anemia of chronic disease DM controlled blood sugar Wound on foot Nephrology consulted and increased metalzone 5 mg and continue with torsemide 80 bid. Anemia stable. CHF with preserved EF stable. DM on insulin management in past but now controlled, RISS and titrate insulin as needed. GI/dvt prophylaxis full code Patient needs to follow up outpatient his primary nephrolgist for peritoneal dialysis as planned. He is reluctant to start hemodialysis. Anticipate discharge today with VNS services at home.
[2017-12-11 08:08] LABS: ABSOLUTE BASOPHIL COUNT 0 /CUMM (0.0-0.2); ABSOLUTE EOSINOPHIL COUNT 0.1 /CUMM (0.0-0.7); ABSOLUTE GRANULOCYTE CT 5.5 /CUMM (1.4-6.5); ABSOLUTE LYMPH COUNT 1.2 /CUMM (1.2-3.4); ABSOLUTE MONOCYTE COUNT 0.4 /CUMM (0.10-0.60); BASOPHIL % 0.5 % (0.0-2.0); EOSINOPHIL % 0.9 % (0-5); GRANULOCYTE % 76.4 % (42.2-75.2); HEMATOCRIT 27.1 % (42-52); MEAN CORPUSCULAR HGB 30.9 PG (27.0-31.0); MEAN CORPUSCULAR HGB CONC 33.1 G/DL (33.0-37.0); MEAN CORPUSCULAR VOLUME 93.1 FL (80.0-94.0); MEAN PLATELET VOLUME 9.5 FL (7.4-10.4); PLATELET COUNT 158 /CUMM (130-400); RBC DISTRIBUTION WIDTH 16.9 % (11.5-14.5); RED BLOOD CELL CT 2.92 /CUMM (4.70-6.10); WHITE BLOOD CELL COUNT 7.2 /CUMM (4.8-10.8)
[2017-12-11 08:57] VITALS: BP 126/64
--- NOTE | 2017-12-11 20:01 | Discharge Summary ---
Visit Information Visit Dates Admission Date: 12/09/17 Discharge Date: 12/11/17 Hospital Course Course Attending Physician: Rebecca Geiger MD Primary Care Physician: Low CASEY,Clyde Gupta Hospital Course: 62 yo male with PMH of chronic kidney disease stage IV, diabetes, hypertension, peripheral neuropathy, CAD s/p CABG and moderate to high dose torsemide and metolazone presents to the ED with worsening abdominal distension leading to shortness of breath for about 2 weeks, He was recently admitted to the hospital for the treatment of pneumonia. His hospital course was complicated by the developement of ascites which was managed by diuretics. The patient states that his abdomen has been getting distended since his discharge. He denies fever, chills, nausea, vomiting, chest pain, orthopnea, decresed urine output or any change in his appetite or weight. He does have CKD Stage 4 but has never been on dialysis. Vitals are stable Labs:Hgb:8.5, Na: 141, K:4.4, Bicarb:20, BUN:107, Creatinine: 6.9, AST/ALT: 26/ 19, Albumin:1.5 The patient is admitted to the Gen Med service for the evaluation and treatment of the following problems:: 1. Large volume ascites s/p Paracentesis 2. ESRD 3. History of DM 4. Normocytic Anemia 5. Chronic hypoxemic respiratory failure secondary to volume overload 6. CAD s/p CABG 7. Hypertension 1, Large volume ascites -Possibly due to volume overload from the kidney. He has a tendency to develop recurrent ascites. -No liver pathology -S/p Paracentesis removing 16 L of fluid, transudative in nature -Monitor the patient for hypotension following paracentesis -Metazolone is increased to 5mg daily, Torsemide 80mg BID RUTH on CKD (ESRD) -Diabetic nephropathy -Baseline creatinine of 5 - RUTH with creatinine of 6.9 today -Spot protein:creatinine ratio pending -Nephro consult appreciated. Will follow up recommendations: * Increase Metalozone dose to 5mg everyday * The patient would need dietery counselling for diet recommendation * He is a candidate for impending dialysis. He would need to follow up with Dr. Lizeth Pradhan as an outpatient regarding the placement of PD cathetar 3. History of Diabetes -Accu checks q4 h -ISS -Endocrine consult 4.Anemia -Normocytic normochromic type -Likely secondary to CKD -Receives Aranesp at Dr. Pradhan's office. Has not receieved it for 2 months now. -Hgb stable at the moment. Will trend CBC 5. Left foot ulcers -Wound consult -Would follow up recommendations DVT prophylaxis: Heparin and ALPS Code status: Full codel Allergies: Coded Allergies: baclofen (LOSE EYESIGHT AND MOTOR SKILLS PER PT 09/23/17) ciprofloxacin (From CIPRO) (FEVER PT PT 09/23/17) lisinopril (COUGH PER PT 09/23/17) Disposition Summary Disposition Principal Diagnosis: Large volume ascites s/p Paracentesis Additional Diagnosis: 1. Large volume ascites s/p Paracentesis 2. ESRD 3. History of DM 4. Normocytic Anemia 5. Chronic hypoxemic respiratory failure secondary to volume overload 6. CAD s/p CABG 7. Hypertension Discharge Disposition: home or self care Discharge Instructions General Discharge Information Code Status: Full Code Patient's Diet: sodium restricted diet Patient's Activity: as tolerated Follow-Up Instructions/Appts: follow up with Nephrology, at [place] Follow up wit PCP Medications at Discharge Discharge Medications: Continue taking these medications: Metaxalone (Metaxalone) 800 MG TABLET 1 Tablet ORAL THREE TIMES DAILY as needed for MUSCLE SPASMS Qty = 90 Comments: NOT GIVEN THIS ADMISSION Atorvastatin Calcium (Atorvastatin Calcium) 40 MG TABLET 1 Tablet ORAL DAILY Qty = 90 Comments: Last Taken:12/11/17 Time: 9 A.M. Amlodipine Besylate (Amlodipine Besylate) 10 MG TABLET 1 Tablet ORAL DAILY Qty = 90 Comments: NOT GIVEN Sevelamer Carbonate (Renvela) 800 MG TABLET 2 Tablet ORAL THREE TIMES DAILY Qty = 180 Comments: Last Taken:12/11/17 Time:12:30 P.M Fenofibrate Nanocrystallized (Fenofibrate) 145 MG TABLET 1 Tablet ORAL DAILY Qty = 90 Comments: NOT GIVEN THIS ADMISSION Acetaminophen (Tylenol Extra Strength) 500 MG TABLET 1 Tablet ORAL EVERY SIX HOURS as needed for KNEE PAIN Qty = 90 Comments: NOT GIVEN Epoetin Chu (Procrit) 20,000 UNIT/ML VIAL 15,000 Units SC ONCE A WEEK Qty = 4 Instructions: Please coordinate with clinic supervisor regarding your weekly dosing. Comments: NOT GIVEN IN HOSPITAL Insulin Aspart (Novolog) 100 UNIT/ML VIAL 0 Units SC 3 TIMES DAILY BEFORE MEALS Qty = 1 Instructions: BEFORE MEALS Blood Insulin Sugar Units <80 0 81-100 0 101-200 1 201-250 2 251-300 3 301-350 4 351-400 6 >400 Call Doctor Comments: NOT GIVEN Ammonium Lactate (Ammonium Lactate) 12 % CREAM..G. 1 Application On the skin DAILY Comments: NOT GIVEN Trazodone HCl (Trazodone HCl) 50 MG TABLET 1 Tablet ORAL TAKE AT BEDTIME as needed for SLEEP Comments: Last Taken: 12/09/17 Time: 1030 P.M. Lidocaine (Lidocaine) 5 % ADH..PATCH 3 Patch On the skin DAILY Comments: NOT GIVEN Lidocaine HCl (Xolido) 2 % CREAM.ML. 1 Application On the skin As Directed Comments: NOT GIVEN THIS ADMISSION Insulin Lispro (Humalog) 100 UNIT/ML VIAL 1 Unit SC THREE TIMES DAILY Qty = 1 Instructions: USE DIRECTED Comments: NOT GIVEN Torsemide (Torsemide) 20 MG TABLET 4 Tablet ORAL TWICE DAILY Qty = 180 Instructions: . Comments: Last Taken:12/11/17 Time: 9 A.M Aspirin (Aspirin*) 81 MG TAB.CHEW 1 Tablet ORAL DAILY Qty = 30 Instructions: . Comments: Last Taken: 12/11/17 Time: 9 A.M. Metoprolol Tartrate (Lopressor) 50 MG TABLET 1 Tablet ORAL TWICE DAILY Qty = 60 Instructions: . Comments: Last Taken:12/11/17 Time: 9 A.M Hydralazine HCl (Hydralazine HCl) 50 MG TABLET 1.5 Tablet ORAL TWICE DAILY Qty = 60 Instructions: . Comments: Last Taken:12/11/17 Time: 9 A.M. Ciprofloxacin HCl (Cipro) 500 MG TABLET 500 Milligram ORAL DAILY Qty = 4 Instructions: . Comments: NOT GIVEN The following medications have been changed: Old: Metolazone (Metolazone) 5 MG TABLET 1 Tablet ORAL DAILY Qty = 30 New: Metolazone (Metolazone) 5 MG TABLET 1 Tablet ORAL DAILY Qty = 30 Instructions: TO BE TAKEN BEFORE TORSEMIDE. Comments: Last Taken: 12/11/17 Time: 9 A.M. Copies To: Lorne CASEY,Lizeth Caldwell; Low CASEY,Clyde Gupta
== END 2017-12-11 14:45 | disposition home health service (06) | DRG 425 ==
LOC: ERH 12:45 → ERHI 17:26 → 2NB 17:26 → ENRESERV 19:50 → ENTRNSPT 20:20 → EDTRNSPTSTS 20:24 → EDTRNSPT 20:24 → 2NB 20:41 → CMPTRNSPT 20:42 → 2NB 20:45 → ENPENDDIS 12-11 12:33 → ENTRNSPT 12-11 14:30 → 2NB 12-11 14:45 → CMPTRNSPT 12-11 15:11
PROVIDERS: Hospitalist; Physician Assistant Medical; Student in an Organized Health Care Education/Training Program
PROC: 0W9G3ZZ Drainage of Peritoneal Cavity, Percutaneous Approach (ICD-10-PCS; principal; 2017-12-09)
DX: E87.70 Fluid overload, unspecified (principal); R18.8 Other ascites; N17.9 Acute kidney failure, unspecified; E11.42 Type 2 diabetes mellitus with diabetic polyneuropathy; E11.21 Type 2 diabetes mellitus with diabetic nephropathy; Z79.4 Long term (current) use of insulin; N18.5 Chronic kidney disease, stage 5; I25.10 Atherosclerotic heart disease of native coronary artery without angina pectoris; Z95.1 Presence of aortocoronary bypass graft; D64.9 Anemia, unspecified; I13.2 Hypertensive heart and chronic kidney disease with heart failure and with stage 5 chronic kidney disease, or end stage renal disease; I50.32 Chronic diastolic (congestive) heart failure; Z99.81 Dependence on supplemental oxygen; J96.11 Chronic respiratory failure with hypoxia; Z88.1 Allergy status to other antibiotic agents; Z88.8 Allergy status to other drugs, medicaments and biological substances; Z98.84 Bariatric surgery status; Z86.718 Personal history of other venous thrombosis and embolism; Z90.79 Acquired absence of other genital organ(s)
CPT/HCPCS: 04007; 2NBP; 87075; 36592; 71045; 74176; 81001; 82436; 82570; 93005; 93010; J1644; J3490